=== PATIENT | male | born 1985 | race Caucasian/White ===

== ENCOUNTER 2017-09-19 17:13 | Emergency (ER) | END 2017-09-19 19:13 | disposition home or self-care (01) ==

== ENCOUNTER 2018-08-20 20:02 | Inpatient (IN) | payer MEDICAID ==
[~2018-08-20] VITALS: Ht 167.6 cm; Wt 72.0 kg
[2018-08-20] MEDS ORDERED: NALOXONE (0.4 MG/ML) INJ ONE (20:06)
[2018-08-20] MEDS ORDERED: CEFEPIME 2GM/50 ML (PMX) 50 ML IVPB STA (20:26)
[2018-08-20] MEDS ORDERED: SODIUM CHLORIDE 0.9% 1L BAG IV* STA (20:26)
[2018-08-20] MEDS ORDERED: VANCOMYCIN 1 GM (PMX) 250 ML IVPB ONE (20:30)
[2018-08-20] MEDS ORDERED: ETOMIDATE 20 MG INJ IV STA (20:45)
[2018-08-20] MEDS ORDERED: MIDAZOLAM (DRIP) 50 mg/50 mL 50 ML IV STA (20:45)
[2018-08-20] MEDS ORDERED: ROCURONIUM 50 MG INJ IV STA (20:45)
--- NOTE | 2018-08-20 20:58 | ERD ---
ER Documentation Chief Complaint Chief Complaint STEVEN [id number],suspected heroin overdose per EMS report HPI 33-year-old male who presents via EMS for altered mental status. EMS reports that the patient was found in a local parking lot unresponsive. He was hypoglycemic in the 30s and given dextrose. The patient was found to have pinp oint pupils and did not respond to 2 mg of Narcan. A nasal trumpet was inserted and the patient was brought to the emergency room. He continues to be unresponsive and remains critical. Remainder of HPI is very limited. EMR shows a prior visit for alcohol related issues. ROS Critical patient Medications Home Meds Unable to Obtain Active Prescriptions or Reported Meds Allergies Allergies: Coded Allergies: Unknown: Unable to obtain (Unverified , 09/19/17) PMhx/Soc Hx Alcohol Use: Yes (ETOH AT THIS TIME) Hx Substance Use: No (DENIES DRUG USE) Hx Tobacco Use: No FmHx Medical patient unable to obtain Physical Exam Vitals Vital Signs Date Temp Pulse Resp B/P (MAP) Pulse Ox O2 O2 Flow FiO2 Time Delivery Rate 08/20/18 120 23 83/60 (68) 86 Mechanical 23:41 Ventilator 08/20/18 118 25 98/51 (67) 92 Mechanical 23:27 Ventilator 08/20/18 106 25 95 100 23:12 08/20/18 115 12 86/53 (64) 95 Mechanical 22:56 Ventilator 08/20/18 106 19 118/61 96 Mechanical 22:05 (80) Ventilator 08/20/18 106 22 116/97 97 Mechanical 21:31 (103) Ventilator 08/20/18 112 23 92/80 (84) 97 Mechanical 21:14 Ventilator 08/20/18 112 25 96 100 20:55 08/20/18 105 25 154/75 100 Mechanical 20:43 (101) Ventilator 08/20/18 97.4 112 25 133/110 96 20:13 (118) Physical Exam General: Obtunded patient who is grunting with a nasal trumpet and not protecting his airway Head: Normocephalic, atraumatic. Eyes: Pinpoint pupils bilaterally ENT: Dry mucous membranes Neck: Supple, no lymphadenopathy Respiratory: Increased work of breathing Cardiovascular: Tachycardia, no murmurs, rubs, or gallops Abdominal: Soft, non-tender, non-distended, no peritoneal signs : No inguinal hernia normal descended testicles bilaterally MSK: Limited movement of all extremities with no deformities Neurologic: Obtunded, limited exam Skin: The patient has 2 areas of abrasions noted to the left hip with associated blister and right inner thigh with associated blister, no petechia or purpura Psych: Unable to assess Result Diagram: 08/20/18213608/20/182020 Results 24 hrs Laboratory Tests Test 08/20/18 20:19 08/20/18 20:20 08/20/18 20:21 08/20/18 20:45 POC Venous 7.0 mmol/L Lactate Urine Color YELLOW Urine Clarity SLIGHTLY CLOUD Y Urine pH 5.0 Urine Specific 1.018 [place] Urine Ketones NEGATIVE mg/dL Urine Nitrite NEGATIVE mg/dL Urine Bilirubin NEGATIVE mg/dL Urine NEGATIVE mg/dL Urobilinogen Urine Leukocyte NEGATIVE Hieu/u Esterase l Urine 0 /HPF Microscopic RBC Urine 1 /HPF Microscopic WBC Urine NEGATIVE mg/dL Hemoglobin Urine Glucose 3+ mg/dL Urine Total 1+ mg/dl Protein Urine Opiates Positive Screen Urine Negative Barbiturates Urine Positive Amphetamines Screen Urine Negative Benzodiazepines Screen Urine Cocaine Negative Screen Urine Positive Cannabinoids White Blood 20.2 10^3/ul Count Red Blood Count 4.65 10^6/ul Hemoglobin 15.1 g/dl Hematocrit 46.6 % Mean 100.2 fl Corpuscular Volume Mean 32.5 pg Corpuscular Hemoglobin Mean 32.4 g/dl Corpuscular Hemoglobin Conc ent Red Cell 13.2 % Distribution Width Platelet Count 229 10^3/UL Mean Platelet 10.2 fl Volume Immature 0.900 % Granulocytes % Neutrophils % % Segmented 61 % Neutrophils % (Manual) Band 25 % Neutrophils % (Manual) Lymphocytes % 5 % (Manual) Reactive 4 % Lymphocytes % (Manual) Monocytes % 3 % (Manual) Eosinophils % % Metamyelocytes 2 % % (manual) Nucleated Red 0.1 /100WBC Blood Cells % Immature 0.180 10^3/ul Granulocytes # Neutrophils # 10^3/ul Neutrophils # 13.3 10^3/ul (Manual) Band 5.0 10^3/ul Neutrophils # Lymphocytes 1.0 10^3/ul (Manual) Reactive 0.8 10^3/ul Lymphocytes # Monocytes # 0.6 10^3/ul (Manual) Eosinophils # 10^3/ul Metamyelocytes 0.4 10^3/ul # Platelet NORMAL Estimate Poikilocytosis 1+ Sodium Level 148 mmol/L Potassium Level 3.0 mmol/L Chloride Level 115 mmol/L Carbon Dioxide 13 mmol/L Level Anion Gap 20 Blood Urea 27 mg/dl Nitrogen Creatinine 2.91 mg/dl Est Glomerular 25 mL/min Filtrat Rate mL/min Glucose Level 157 mg/dl Calcium Level 7.3 mg/dl Magnesium Level 2.6 mg/dl Total Bilirubin 0.2 mg/dl Direct 0.00 mg/dl Bilirubin Indirect 0.2 mg/dl Bilirubin Aspartate Amino 6223 IU/L Transf (AST/SGO T) Alanine 5039 IU/L Aminotransferas e (ALT/SGPT) Alkaline 101 IU/L Phosphatase Creatine Kinase 9300 IU/L Troponin I 2.370 ng/ml Total Protein 6.1 g/dl Albumin 3.3 g/dl Globulin 2.80 g/dl Albumin/Globuli 1.17 n Ratio Salicylates < 1.0 mg/dl Level Acetaminophen < 10.0 ug/ml Level Ethyl Alcohol 95.0 mg/dl Level Hepatitis B Pending Surface Antigen Hepatitis B Pending Core Total Antibody Hepatitis C Pending Antibody Blood Gas Blood arterial Specimen Source Arterial Blood 08/20/2018 9:4 Date Drawn 5:15 PM Arterial Blood 7.021 pH (Temp corrected ) Arterial Blood 47.1 mmhg pCO2 (Temp correct) Arterial Blood 85.6 mmHG pO2 (Temp corrected ) Arterial Blood 11.9 mmol/L HCO3 Arterial Blood -18.9 mmol/L Base Excess Arterial Blood 91.2 mmHG Oxygen Saturati on John Test ACCEPTAB Arterial Blood Right Radial Gas Puncture Site Arterial 0.1 % Blood Carboxyhe moglobin Arterial Blood 0.3 % Methemoglobin Blood Gas A-a 580.3 mmHg O2 Differential Oxyhemoglobin 90.8 % Percent Blood Gas 37.0 C Temperature Blood Gas 15.0 Respiration Rate Blood Gas 20 Actual Respiration Rat e Blood Gas VENT - AC Modality FiO2 100.0 % Blood Gas Tidal 500.0 mL Volume Blood Gas Low 5.0 cmH2O PEEP Setting Blood Gas Erica YUNG MD Critical Value Read Back Blood Gas Notified Whom Blood Gas 08/20/2018 9:5 Notified Time 1:24 PM Test 08/20/18 21:37 08/20/18 22:17 08/20/18 23:00 Platelet Count 184 10^3/UL Prothrombin 29.6 Sec Time Prothrombin 2.3 Time Ratio INR 2.72 International Normalized Rati o Activated 39.9 Sec Partial Thrombo plast Time Thrombin Time 18.8 SEC Fibrinogen 208.0 mg/dl Plasma Fibrin >10 and Degradation Pro <40 ug/ml ducts D-Dimer 8363.85 ng/ml D-Dimer Comment POC Venous 4.6 mmol/L Lactate Blood Gas Blood arterial Specimen Source Arterial Blood 08/20/2018 11: Date Drawn 25:25 PM Arterial Blood 7.031 pH (Temp corrected ) Arterial Blood 50.0 mmhg pCO2 (Temp correct) Arterial Blood 82.1 mmHG pO2 (Temp corrected ) Arterial Blood 12.9 mmol/L HCO3 Arterial Blood -17.9 mmol/L Base Excess Arterial Blood 90.6 mmHG Oxygen Saturati on John Test ACCEPTAB Arterial Blood Left Radial Gas Puncture Site Arterial 0.3 % Blood Carboxyhe moglobin Arterial Blood 0.3 % Methemoglobin Blood Gas A-a 580.9 mmHg O2 Differential Oxyhemoglobin 90.1 % Percent Blood Gas 37.0 C Temperature Blood Gas 15.0 Respiration Rate Blood Gas 30 Actual Respiration Rat e Blood Gas VENT - AC Modality FiO2 100.0 % Blood Gas Tidal 500.0 mL Volume Blood Gas Low 5.0 cmH2O PEEP Setting Blood Gas Erica YUNG MD Critical Value Read Back Blood Gas Notified Whom Blood Gas 08/20/2018 11: Notified Time 34:02 PM Current Medications Medications Dose Sig/Paty Start Time Status Last (Trade) Ordered Route PRN Stop Time Admin Dose Reason Admin Sodium 2,400 ml BOLUS OVER 2 08/20/18 DC 08/20/18 Chloride HOURS STAT 20:26 20:43 (NS) IV* 08/20/18 20:28 Cefepime HCl 50 ml @ ONCE STAT 08/20/18 DC 08/20/18 100 mls/hr IVPB 20:26 20:43 08/20/18 20:55 Vancomycin 250 ml @ ONCE ONCE 08/20/18 DC 08/20/18 HCl 125 mls/hr IVPB 20:30 21:24 08/20/18 22:29 Rocuronium 100 mg ONCE STAT 08/20/18 DC 08/20/18 Nancy IV 20:45 20:58 (Zemuron) 08/20/18 20:47 Etomidate 20 mg ONCE STAT 08/20/18 DC (Amidate) IV 20:45 08/20/18 20:47 Midazolam 50 ml @ 3 ONCE STAT 18 08/20/18 HCl mls/hr IV 20:45 23:27 08/21/18 13:24 Fentanyl 100 ml @ TITRATE 08/20/18 2.5 mls/hr ONCE IV 21:00 08/22/18 12:59 Fentanyl 100 mcg ONCE ONCE 08/20/18 DC (Sublimaze) IV 21:00 08/20/18 21:01 Midazolam 2 mg ONCE ONCE 08/20/18 DC 08/20/18 HCl IV 21:00 21:24 (Versed) 08/20/18 21:01 Sodium 1,000 ml @ Q10H IV 08/20/18 DC 08/20/18 Chloride 100 mls/hr 21:44 22:39 08/20/18 23:44 Albuterol 4 puff Q2H RESP 08/20/18 (Ventolin THERAPY PRN 22:00 Hfa) INH SHORTNESS OF BREATH Ipratropium 4 puff Q2H RESP 08/20/18 Nancy THERAPY PRN 22:00 (Atrovent INH Hfa) SHORTNESS OF BREATH 650 mg Q6H PRN 08/20/18 Acetaminophen PO PAIN 22:00 (Tylenol LEVEL 1-3 OR Liquid) FEVER 40 mg 08/20/18 08/20/18 Pantoprazole BID@0600,1800 22:00 22:38 (Protonix IV Iv) Potassium 100 ml @ Q2H IVPB 08/20/18 08/20/18 Chloride 50 mls/hr 22:00 22:38 08/21/18 03:59 Sodium 1,000 ml @ Q1H ONCE 08/20/18 08/20/18 Chloride 1,000 mls/hr IV 23:00 23:26 08/20/18 23:59 500 ml @ TITRATE IV 08/21/18 Norepinephrin 1.88 mls/hr 00:00 e 16 mg/Dextrose Albumin 100 ml @ Q1H IV 08/21/18 Human 100 mls/hr 00:00 08/21/18 01:59 Procedures/MDM EKG, MONITORS, & DIAGNOSTIC IMAGING: EKG: I reviewed and interpreted a 12-lead EKG. Rhythm: Normal sinus rhythm ST Changes: No contiguous ST segment elevations T waves: No contiguous T wave inversions Impression: No evidence of acute cardiac ischemia Chest x-ray: Chest x-ray: I reviewed and interpreted a 1 view of the chest Mediastinum: No enlargement Cardiac silhouette: No cardiomegaly Airspace: Interstitial process bilaterally ET tube in good position Bones: No evidence of fracture Repeat chest x-ray Chest x-ray: I reviewed and interpreted a 1 view of the chest Mediastinum: No enlargement Cardiac silhouette: No cardiomegaly Airspace: Interstitial process bilaterally, ET tube in good position, triple- lumen catheter in good position without evidence of pneumothorax Bones: No evidence of fracture CT brain: IMPRESSION: Negative noncontrast CT brain RPTAT: HLRS PROCEDURES: Intubation Note: Indication: Airway protection Consent: This was an emergent situation, implied consent was observed RSI Medications: Etomidate 20 mg, Rocuronium 100 mg Tube size: 7.5 Secured at: 24 at mouth Procedure: Endotracheal intubation was performed. The patient was preoxygenated with supplemental oxygen, the room was set up with emergency airway equipment including [id number], suction, and adjunct airways. Direct visualization of the cords was performed with direct laryngoscopy using video laryngoscope, the patient had a difficult airway with multiple episodes of aspiration requiring suctioning. The patient was quite anterior with difficult visualization of the cords secondary to aspiration and frequent suctioning needs. First attempt was unable to insert the endotracheal tube, the patient was bagged using an oral airway and bag valve mask. Desaturation to 66% was noted with rapid recovery. Second attempt was successful with insertion of the endotracheal tube through the cords was visualized. Bilateral breath sounds were auscultated, color change was observed. The tube was then secured in a postintubation chest x-ray was ordered. Central Line Note: Consent: Critical patient, unable to obtain informed consent Indication: Critically ill patient requiring specialized vascular access for fluid or pressor management Location: Right IJ Indication: Critically ill patient Procedure: Sterile procedure was observed throughout insertion of the central line. The insertion site was prepped with sterile solution. Ultrasound-guided identification of the vein was performed. Insertion of a needle into the vein was obtained with return of dark, nonpulsatile blood. The wire was then threaded through the needle without complication. The wire was then identified within the vein using ultrasound. A small skin incision was made, the needle was removed intact, dilation of the vein was performed and insertion of a triple lumen catheter was completed. The catheter was then sutured to the skin. All 3 ports dottie back and flushed without difficulty. A sterile dressing was applied. The patient tolerated the procedure well there were no complications. Emergency Bedside Ultrasound: Indication: Central line Probe Type: Linear Findings: Dynamic ultrasound utilizing compressive technique with both linear and horizontal views, additional images showing wire within the venous system were obtained. The images were saved along with patient information on a paper chart to be scanned into EMR. The patient tolerated the procedure well and there were no complications. A post-line chest x-ray was ordered as indicated. LAB INTERPRETATION: * Lactic acid elevation possibly secondary to seizure versus hypermetabolic state * Leukocytosis of unclear significance consider stress response * Acute renal failure * Troponin elevation * Abnormal coagulation profile with borderline evidence of DIC MEDICAL DECISION MAKING: The patient arrives with altered mental status, hypoglycemia and pinpoint pupils. His presentation is possibly secondary to seizure secondary to h ypoglycemia secondary to alcohol abuse or polysubstance abuse. He does not have a fever. He has 2 blisters to the lower extremities that seem to be more friction related rather than systemic infection. He has no rash that is consistent with meningococcemia. I do not believe that the patient's pr esentation is consistent with meningitis. Consider possible intracranial hemorrhage, again seizure is also possible. Upon initial evaluation the patient continued to be obtunded despite use of smelling salts, sternal rub and other maneuvers. The patient was not protecting his airway and required emergent intubation. ER COURSE: * The patient was emergently intubated after failure of dextrose, smelling salts, Narcan 1 mg. The patient continued to be altered and not protecting his airway with intermittent hypoxia. * Intubation was somewhat difficult with multiple episodes of aspiration. Patie nt will be covered with broad-spectrum antibiotics. * Patient was sedated with fentanyl and Versed * 30 cc/kg bolus of saline was provided with broad-spectrum antibiotics after blood cultures. * The patient continues to be critically ill with multiple laboratory abnormalities including transaminitis, acute renal failure, troponin elevation, coagulopathy. These constellation of findings are likely co nsistent with multisystem organ dysfunction. * Toxicologic screen is additionally positive. Likely setting of sympathomimetic toxidrome leading to encephalopathy, poor perfusion and now multisystem organ dysfunction. Again I do not believe this is consistent with meningitis. No indication for lumbar puncture at this time. * A DIC panel was sent. A triple lumen catheter was inserted. The patient eventually required levo which was ordered by the admitting team. * The DIC panel is borderline. The fibrinogen is normal. The patient is likely trending towards DIC a type and screen was sent but conversation with admitting team was to hold on cryoprecipitate at this time. I believe it is reasonable. Her platelets are trending down but no indication for transfusion at this time. * Troponin elevation likely secondary to demand, no indication for aspirin at this time given concern for DIC * The patient remains critically ill with significant risk for morbidity and possible mortality. * Continue supportive measures DISPOSITION PLAN: Intensive care unit CONSULTATION: Accepting care team and consultations: I discussed the current laboratory data, diagnostic imaging and emergency care provided. Admitting team: Dr. Pinto Admitting team indication: Insurance directed Critical Care Note: Total time: 50 minutes Indication/Organ System Threat: Multisystem organ dysfunction I spent the above amount of critical care time with the patient, not including billable procedures. This included chart review, consultations, repeat bedside evaluations, and titration of appropriate medications to prevent cardiopulmonary or respiratory collapse. Departure Diagnosis: Primary Impression: Acute encephalopathy Additional Impressions: Polysubstance abuse MODS (multiple organ dysfunction syndrome) Coagulopathy Non-ST elevation myocardial infarction (NSTEMI) ARDS (adult respiratory distress syndrome) Shock Acute renal failure Acute renal failure type: unspecified Qualified Codes: N17.9 - Acute kidney failure, unspecified Lactic acidosis Acute respiratory failure Respiratory failure complication: unspecified whether with hypoxia or hypercapnia Qualified Codes: J96.00 - Acute respiratory failure, unspecified whether with hypoxia or hypercapnia Condition: Critical THIAGO YUNG MD Aug 20, 2018 20:58
[2018-08-20] MEDS ORDERED: MIDAZOLAM 1 MG/ML 2 ML INJ IV ONE (21:00)
[2018-08-20] MEDS ORDERED: FENTAnyl 50 MCG/ML VIAL IV ONE (21:00)
[2018-08-20] MEDS ORDERED: FENTAnyl (DRIP) 1000 mcg/100mL 100 ML IV ONE (21:00)
[2018-08-20] MEDS ORDERED: SOD CHLORIDE 0.9% 1,000 ML IV SCH (21:44)
--- NOTE | 2018-08-20 21:47 | HP ---
Date/Time of Note Date/Time of Note DATE: 08/20/18 TIME: 21:47 Assessment/Plan VTE Prophylaxis SCD applied (from Nsg): Yes Pharmacological prophylaxis: NA/contraindicated Pharm contraindication: liver dx Lines/Catheters IV Catheter Type (from Nrs): Central Line Central line insert date: Aug 20, 2018 Central line still needed: Yes (Critical care, antibiotics, pressors) Urinary Cath still in place: Yes Reason Cath still needed: other (indicate) (Critical condition) Assessment/Plan Hospital Course This is a 33-year-old male was being admitted to the ICU floor for: #1 acute ventilatory dependent respiratory failure: Secondary to polysubstance overdose, non-STEMI, septic shock, multiorgan dysfunction. At the current time will obtain serial ABGs and adjust ventilatory settings as indicated. Will consult pulmonology. Respiratory culture #2 Acute encephalopathy: Likely multifactorial toxic metabolic and infectious: Secondary to polysubstance overdose along with non-STEMI septic shock multi- multiorgan dysfunction. At the current time we will treat the above diagnosis. Continue to monitor neurological status. CT of the brain did not show any acute abnormalities. #3 non-STEMI: EKG did not show signs of any acute ischemia. Patient's urine drug screen was positive for opioids, amphetamine, marijuana, alcohol which likely could have contributed to this. At the current time we will trend cardiac enzymes x3. At the current time he is not a candidate for any anticoagulation given his elevated INR as well as signs of possible impending DIC. We will continue to monitor closely. We will obtain an echocardiogram, will consult cardiology #4 transaminitis: Suspect shock liver versus hepatitis. Given the patient's multiorgan dysfunction at the current time shock liver appears to be more likely. Patient also has an elevated INR. We will trend liver function test. He is currently receiving aggressive IV fluid hydration given that he also has rhabdomyolysis we will continue monitor closely. #5 septic shock: Chest x-ray shows signs of possible pneumonia. Patient presented with lactic acid level of 7 we will trend this. Broad-spectrum antibiotics of vancomycin and Zosyn. Cultures have ready been ordered in the emergency department will await the results of these. If patient does become hypotensive despite fluid resuscitation we will start the patient on pressor sup port. #6 acute renal failure: Suspect ATN secondary to shock, dehydration. At the current time will provide aggressive IV fluid hydration with normal saline, patient is nonoliguric at the current time. Monitor closely if urine output decreases or becomes oliguric. Will obtain a renal ultrasound. Urine studies. Will consult nephrology avoid nephrotoxic agents. #7 Rhabdomyolysis: Secondary to patient found down as well as polysubstance abuse. Aggressive IV fluid hydration with normal saline, monitor renal function closely monitor electrolytes closely. Repeat UA in the a.m. to assess for any heme sediment. #8 abnormal coagulation studies: Patient has supratherapeutic INR as well as abn ormal d-dimer and fibrin fragments, patient does not appear to be overtly bleeding at the current time. Concern for impending DIC. Will trend DIC labs. Continue to monitor closely. Transfuse blood products as indicated. #9 polysubstance abuse: Again patient was found to be positive for opioids, methamphetamine, marijuana and an elevated blood alcohol level. Thiamine 300 mg IM daily times 3 days, further treatment as per the clinical course #10 DVT and GI prophylaxis: SCDs, Protonix twice daily #11 CODE STATUS: Patient currently is a full code, there was no contact available at the current time. We will need to see if we can locate any next of kin. We did found a passport of the patient that was from [facility]. Will consult case management and social work to assist in locating any known relatives or friends. Greater than 55 minutes of critical care time was spent on the care and management this patient. HPI/ROS Admit Date/Time Admit Date/Time Hx of Present Illness Chief complaint: Altered mental status , found unresponsive in a parking lot Obtained from the ED physician documentation as well as the chart as the patient at the current time is intubated. This is a 33-year-old male who presents via EMS for altered mental status. EMS reports that the patient was found in a local parking lot unresponsive. He was hypoglycemic in the 30s and given dextrose. The patient was found to have pinpoint pupils and did not respond to 2 mg of Narcan. A nasal trumpet was inserted and the patient was brought to the emergency room. He continues to be unresponsive and remains critical. Patient was noted to be grunting and unresponsive in the emergency department and decision was made to emergently intubate the patient. Central line was also placed given his critical conditio n. Upon my examination at the bedside the patient is nonresponsive off sedation. He did have pinpoint pupils bilaterally. I did not observe any track anderson or any lesions around his body. I did not noticed any signs of head trauma. Allergies: Unable to obtain Medications: Unknown ROS Subjective hx not possible: pt critical (Unresponsive, intubated) PMH/Family/Social Past Medical History Unable to obtain, unresponsive, intubated Coded Allergies: No Known Allergies (Verified Allergy, Unknown, 08/24/18) Verified per pt. Oriented at this time. Past Surgical History Unable to obtain, unresponsive, intubated Family History Significant Family History: other (Unable to obtain, unresponsive, intubated) Social History Unable to obtain, unresponsive, intubated Alcohol Use: other (Previous admission for alcohol use.) Exam/Review of Systems Vital Signs Vitals Vital Signs Date Temp Pulse Resp B/P (MAP) Pulse Ox O2 O2 Flow FiO2 Time Delivery Rate 08/20/18 106 22 116/97 97 Mechanical 21:31 (103) Ventilator 08/20/18 97.4 20:13 Exam Exam General: Patient is currently intubated, he is obtunded and nonresponsive off sedation, pinpoint pupils bilaterally nonreactive to light HEENT: Atraumatic, normocephalic. The pupils are equal, round and reactive. Extraocular motor are intact Neck: Supple, ET tube in place Chest: Nontender Lungs: Clear to auscultation bilaterally no crackles rales or wheezing Heart: Sinus tachycardia Abdomen: Soft , nondistended , bowel sounds are present. No guarding no rebound tenderness , No masses or organomegaly. Extremities: Normal to inspection, no edema no cyanosis Neurologic: Patient came in unresponsive, he was emergently intubated, currently patient is obtunded while off sedation. Pinpoint pupils bilaterally nonreactive to light Additional Comments PROCEDURE: CT Brain without contrast. CLINICAL INDICATION: 33-year-old male. Possible sepsis. Altered level of consciousness. TECHNIQUE: A CT of the brain was performed on a multi-slice CT scanner utilizing axial imaging from the skull base through the vertex without IV contrast. Multiplanar reformatted images were made. Images were reviewed on a PACS workstation. One or more the following dose reduction techniques were utilized: Automated exposure control, adjustment of mA/ or kV according to patient's size, or use of iterative reconstruction technique. DICOM images are available for review. The CTDIvol is 39.64 mGy and the DLP is 634.23 mGycm. COMPARISON: CT brain 09/19/2017. FINDINGS: No mass effect or midline shift. Normal ventricles for age. No acute intra-axial or extra-axial hemorrhage. No subdural collection. Fregoso - white matter differentiation is maintained. Visualized paranasal sinuses are clear. Mastoid air cells are clear. IMPRESSION: Negative noncontrast CT brain RPTAT: [facility] Physician Denae Date Time Electronically viewed and signed by Physician Denae on 08/20/2018 21:40 RS/ CC: CHANDLER NOLASCO MD [id number] PROCEDURE: DX Chest 1 View CLINICAL INDICATION: Possible sepsis. TECHNIQUE: AP Portable chest. COMPARISON: None FINDINGS: Endotracheal tube is identified with the tip above the alisha but resting on the right lateral wall of the trachea. Large-bore nasogastric tube turns back on itself in the mid thoracic esophagus. The side-hole and tip are in the neck. Normal sized heart. Prominent superior mediastinum. Pulmonary vascular congestion with perihilar edema. No pneumothorax or significant pleural effusion. IMPRESSION: 1. Aberrant position of the nasogastric tube. Tube takes a 180 degrees turn in the mid thoracic esophagus. The tip and side hole projects over the right neck. 2. Endotracheal tube tip is above the alisha, abutting the lateral wall of the right trachea. Consider pulling to back approximately 2 - 2.5 cm. 3. Pulmonary vascular congestion with bilateral perihilar edema. RPTAT: [facility] Physician Denae Date Time Electronically viewed and signed by Physician Denae on 08/20/2018 21:43 RS/ CC: CHANDLER NOLASCO MD [id number] PROCEDURE: XR Chest. CLINICAL INDICATION: Central line placement TECHNIQUE: Single portable view of the chest was obtained COMPARISON: Same day FINDINGS: There is a new right-sided central line in place with its tip overlying the upper SVC. There is a nasogastric tube within the stomach. There is an endotracheal tube in place. There are worsening bilateral upper lobe and bilateral lower lobe patchy infiltrates. The heart, mediastinum, and lungs are otherwise unchanged. There is no pneumothorax. RPTAT:AA IMPRESSION: New right-sided central line in place with no evidence of pneumothorax. Nasogastric tube within the stomach. Worsening patchy bilateral upper lobe and lower lobe infiltrates. .Mark Gaytan MD, MD Date Time Electronically viewed and signed by .Mark Gaytan MD, on 08/21/2018 00:04 .S/ CC: THIAGO YUNG MD [id number] Medications Medications Current Medications Vancomycin HCl 250 ml @ 125 mls/hr ONCE ONCE IVPB Last administered on 08/20/18at 21:24; Admin Dose 125 MLS/HR; Start 08/20/18 at 20:30; Stop 08/20/18 at 22:29 Midazolam HCl 50 ml @ 3 mls/hr ONCE STAT IV ; Start 08/20/18 at 20:45; Stop 08/21/18 at 13:24 Fentanyl 100 ml @ 2.5 mls/hr TITRATE ONCE IV ; Start 08/20/18 at 21:00; Stop 08/22/18 at 12:59 Results Result Diagram: 08/20/18202008/20/182020 Results 24 hrs Laboratory Tests Test 08/20/18 20:19 08/20/18 20:20 08/20/18 20:21 POC Venous Lactate 7.0 *H Urine Color YELLOW Urine Clarity SLIGHTLY CLOUDY A Urine pH 5.0 Urine Specific [place] 1.018 Urine Ketones NEGATIVE Urine Nitrite NEGATIVE Urine Bilirubin NEGATIVE Urine Urobilinogen NEGATIVE Urine Leukocyte Esterase NEGATIVE Urine Microscopic RBC 0 Urine Microscopic WBC 1 Urine Hemoglobin NEGATIVE Urine Glucose 3+ H Urine Total Protein 1+ H Urine Opiates Screen Positive Urine Barbiturates Negative Urine Amphetamines Screen Positive Urine Benzodiazepines Screen Negative Urine Cocaine Screen Negative Urine Cannabinoids Positive White Blood Count 20.2 #H Red Blood Count 4.65 L Hemoglobin 15.1 Hematocrit 46.6 Mean Corpuscular Volume 100.2 Mean Corpuscular Hemoglobin 32.5 Mean Corpuscular 32.4 Hemoglobin Concent Red Cell Distribution Width 13.2 Platelet Count 229 # Mean Platelet Volume 10.2 Immature Granulocytes % 0.900 H Neutrophils % Eosinophils % Nucleated Red Blood Cells % 0.1 H Immature Granulocytes # 0.180 H Neutrophils # Eosinophils # Prothrombin Time Pending Prothrombin Time Ratio 2.4 INR International 2.85 Normalized Ratio Activated 41.7 H Partial Thromboplast Time Sodium Level 148 H Potassium Level 3.0 L Chloride Level 115 H Carbon Dioxide Level 13 L Anion Gap 20 H Blood Urea Nitrogen 27 H Creatinine 2.91 H Est Glomerular Filtrat 25 L Rate mL/min Glucose Level 157 Calcium Level 7.3 L Total Bilirubin 0.2 Direct Bilirubin 0.00 Indirect Bilirubin 0.2 Aspartate Amino 6223 H Transf (AST/SGOT) Alanine 5039 H Aminotransferase (ALT/SGPT) Alkaline Phosphatase 101 Creatine Kinase 9300 H Troponin I 2.370 *H Total Protein 6.1 Albumin 3.3 Globulin 2.80 Albumin/Globulin Ratio 1.17 Salicylates Level < 1.0 L Acetaminophen Level < 10.0 L Ethyl Alcohol Level 95.0 H QASIM BURROWS Aug 20, 2018 21:47
[2018-08-20] MEDS ORDERED: ALBUTEROL HFA 8 GM INHALER INH PRN (22:00)
[2018-08-20] MEDS ORDERED: IPRATROPIUM (HFA) 12.9 GM INHALER INH PRN (22:00)
[2018-08-20] MEDS: POTASSIUM CHLORIDE 100 ML IVPB SCH (22:38)
[2018-08-20] MEDS: PANTOPRAZOLE 40 MG INJ IV SCH (22:38)
[2018-08-20] MEDS ORDERED: SOD CHLORIDE 0.9% 1,000 ML IV ONE (23:00)
[2018-08-21] VITALS (103 sets, daily range): BP systolic 78–146; BP diastolic 47–100; PULSE 101–125; RESP 20–31; Ht 167.6 cm; Wt 72.0 kg
[2018-08-21] MEDS ORDERED: VANCOMYCIN IV PER PHARMACY XX SCH
[2018-08-21] MEDS: INSULIN ASPART [NOVOLOG] 3 ML PEN SC SCH ×6 (01:00→20:39)
[2018-08-21] MEDS: POTASSIUM CHLORIDE 100 ML IVPB SCH ×5 (02:00→07:00)
[2018-08-21] MEDS: SOD CHLORIDE 0.9% 1,000 ML IV SCH ×5 (02:00→21:30)
[2018-08-21] MEDS ORDERED: ACCU-CHEK XX SCH (02:00)
[2018-08-21] MEDS: ALBUMIN HUMAN 25% 100 ML IV SCH ×2 (02:52→03:30)
[2018-08-21] MEDS: THIAMINE 200 MG INJ IM SCH (04:00)
[2018-08-21] MEDS: PIPER-TAZO 3.375 GM IV (PMX) 100 ML IVPB SCH ×4 (04:00→22:49)
[2018-08-21] MEDS ORDERED: MIDAZOLAM (DRIP) 50 mg/50 mL 50 ML IV SCH (04:00)
[2018-08-21] MEDS: PANTOPRAZOLE 40 MG INJ IV SCH ×2 (06:16→18:09)
[2018-08-21] MEDS ORDERED: INSULIN REGULAR, HUMAN 100 UNIT/1 ML 3ML VIAL IVP STA (08:10)
[2018-08-21] MEDS ORDERED: DEXTROSE 50% 50 ML SYRINGE IV PRN ×3 (08:30→16:30)
[2018-08-21] MEDS ORDERED: NA POLYST SULFON 15 GM/60 ML BTL PO ONE (08:30)
[2018-08-21] MEDS ORDERED: NA BICARBONATE 8.4% 50 ML SYG IV STA (09:22)
[2018-08-21] MEDS ORDERED: NA BICARBONATE 8.4% 50 ML SYG ONE (09:23)
--- NOTE | 2018-08-21 09:54 | CONS ---
Date/Time of Note Date/Time of Note DATE: 08/21/18 TIME: 09:40 Assessment/Plan Assessment/Plan Problems: (1) Rhabdomyolysis Comment: and anuric with rising CPK.. will need dialysis... has been on fluids from the ER without response (2) Acute respiratory failure Status: Acute Comment: intubated in the ER Qualifiers: Qualified Codes: J96.00 - Acute respiratory failure, unspecified whether with hypoxia or hypercapnia (3) Lactic acidosis Status: Acute Comment: progressive.. on abx and pressors (4) Acute renal failure Status: Acute Comment: due to shock/rhabdo/polysubstance abuse, with current acidemia and hyperkalemia Qualifiers: Qualified Codes: N17.9 - Acute kidney failure, unspecified (5) Coagulopathy Status: Acute Comment: DIC noted (6) Shock Status: Acute Comment: on Levo (7) Polysubstance abuse Status: Acute Comment: noted on urine tox screen (8) Acute encephalopathy Status: Acute Comment: now sedated on the vent Consultation Date/Type/Reason Admit Date/Time Type of Consult Nephrology Reason for Consultation anuric ARF Hx of Present Illness History as per chart, as patient is sedated and intubated. Found down in a parking lot hypoglycemic , altered. sent EMS to ER, where was intubated and noted to have ARF, transaminitis, coagulopathy, (+) evidence for polysubstance abuse. Currently anuric, hyperkalemic with hypotension requiring Levo, in the setting of lactic acidemia and DIC. Additionally evidence for progressive Rhabdo, with CPK now > 88K. In view of all the above, imminent recovery of renal fxn will not occur, and he will need acute dialysis. This was discussed w Dr Armando, hospitalist helping to take care of this man. Subjective hx not possible: pt non-verbal, pt critical status Past Medical History unobtainable Social History Alcohol Use: other (Previous admission for alcohol use.) Exam/Review of Systems Vital Signs Vitals Vital Signs Date Temp Pulse Resp B/P (MAP) Pulse Ox O2 O2 Flow FiO2 Time Delivery Rate 08/21/18 104 30 111/71 100 08:45 (84) 08/21/18 98.5 Mechanical 08:00 Ventilator 08/21/18 100 04:41 Intake and Output 08/20/18 08/20/18 08/21/18 1515:00 23:00 07:00 IntakeIntake Total 1742.39 ml OutputOutput Total 510 ml BalanceBalance 1232.39 ml Exam Constitutional: non-verbal, other (sedated on the vent) Head: normocephalic, atraumatic Eyes: icteric (not) Neck: masses (none) Respiratory: clear to auscultation Cardiovascular: regular rate and rhythm Gastrointestinal: soft Musculoskeletal: nl extremities to inspection Extremities: normal pulses, edema (none) Medications Medications Current Medications Fentanyl 100 ml @ 2.5 mls/hr TITRATE ONCE IV ; Start 08/20/18 at 21:00; Stop 08/22/18 at 12:59 Albuterol (Ventolin Hfa) 4 puff Q2H RESP THERAPY PRN INH SHORTNESS OF BREATH; Start 08/20/18 at 22:00 Ipratropium [place] (Atrovent Hfa) 4 puff Q2H RESP THERAPY PRN INH SHORTNESS OF BREATH; Start 08/20/18 at 22:00 Acetaminophen (Tylenol Liquid) 650 mg Q6H PRN PO PAIN LEVEL 1-3 OR FEVER; Start 08/20/18 at 22:00 Pantoprazole (Protonix Iv) 40 mg BID@0600,1800 IV Last administered on 08/21/18at 06:16; Admin Dose 40 MG; Start 08/20/18 at 22:00 Norepinephrine 16 mg/Dextrose 500 ml @ 1.88 mls/hr TITRATE IV Last administered on 08/21/18at 00:26; Admin Dose 1.88 MLS/HR; Start 08/21/18 at 00:00 Sodium Chloride 1,000 ml @ 150 mls/hr Q6H40M IV Last administered on 08/21/18at 09:17; Admin Dose 300 MLS/HR; Start 08/21/18 at 02:00 Vancomycin HCl (Vanco Iv Per Pharmacy) VANCOMYCIN PER PHARMACY PER PROTOCOL XX ; Start 08/21/18 at 00:00 Piperacillin Sod/ Tazobactam Sod 100 ml @ 200 mls/hr Q8 IVPB Last administered on 08/21/18at 04:00; Admin Dose 200 MLS/HR; Start 08/21/18 at 00:00 Insulin Aspart (Novolog Insulin Pen) NOVOLOG *MILD* ALGORI... Q4 SC Last administered on 08/21/18at 05:25; Admin Dose 1 UNIT; Start 08/21/18 at 01:00 Vancomycin HCl 250 ml @ 125 mls/hr Q24H IVPB ; Start 08/21/18 at 20:00 Thiamine HCl (Vitamin B1) 300 mg DAILY@0300 IM Last administered on 08/21/18at 04:00; Admin Dose 300 MG; Start 08/21/18 at 03:00; Stop 08/24/18 at 02:59 Midazolam HCl 50 ml @ 3 mls/hr TITRATE IV Last administered on 08/21/18at 05:11; Admin Dose 4 MLS/HR; Start 08/21/18 at 04:00 Dextrose (D50w Syringe) ONCE PRN IV DECREASED GLUCOSE Last administered on 08/21/18at 09:09; Admin Dose 50 ML; Start 08/21/18 at 08:30; Stop 08/22/18 at 23:00 Influenza Virus Vaccine Quadrival (Fluzone) 0.5 ml ONCE ONCE IM* ; Start 08/24/18 at 10:00; Stop 08/24/18 at 10:01 Sodium Bicarbonate 100 meq/Dextrose 1,000 ml @ 100 mls/hr Q10H IV ; Start 08/21/18 at 10:00; Status UNV Results Result Diagram: 08/21/18 0410 08/21/18 0720 Results 24 hrs Laboratory Tests Test 08/20/18 20:19 08/20/18 20:20 08/20/18 20:21 08/20/18 20:45 POC Venous 7.0 *H Lactate Urine Color YELLOW Urine Clarity SLIGHTLY CLOUD Y A Urine pH 5.0 Urine Specific 1.018 [place] Urine Ketones NEGATIVE Urine Nitrite NEGATIVE Urine Bilirubin NEGATIVE Urine NEGATIVE Urobilinogen Urine Leukocyte NEGATIVE Esterase Urine 0 Microscopic RBC Urine 1 Microscopic WBC Urine NEGATIVE Hemoglobin Urine Glucose 3+ H Urine Total 1+ H Protein Urine Opiates Positive Screen Urine Negative Barbiturates Urine Positive Amphetamines Screen Urine Negative Benzodiazepines Screen Urine Cocaine Negative Screen Urine Positive Cannabinoids White Blood 20.2 #H Count Red Blood Count 4.65 L Hemoglobin 15.1 Hematocrit 46.6 Mean 100.2 Corpuscular Volume Mean 32.5 Corpuscular Hemoglobin Mean 32.4 Corpuscular Hemoglobin Conc ent Red Cell 13.2 Distribution Width Platelet Count 229 # Mean Platelet 10.2 Volume Immature 0.900 H Granulocytes % Neutrophils % Segmented 61 Neutrophils % (Manual) Band 25 H Neutrophils % (Manual) Lymphocytes % 5 L (Manual) Reactive 4 H Lymphocytes % (Manual) Monocytes % 3 (Manual) Eosinophils % Metamyelocytes 2 H % (manual) Nucleated Red 0.1 H Blood Cells % Immature 0.180 H Granulocytes # Neutrophils # Neutrophils # 13.3 H (Manual) Band 5.0 H Neutrophils # Lymphocytes 1.0 (Manual) Reactive 0.8 H Lymphocytes # Monocytes # 0.6 (Manual) Eosinophils # Metamyelocytes 0.4 H # Platelet NORMAL Estimate Poikilocytosis 1+ Sodium Level 148 H Potassium Level 3.0 L Chloride Level 115 H Carbon Dioxide 13 L Level Anion Gap 20 H Blood Urea 27 H Nitrogen Creatinine 2.91 H Est Glomerular 25 L Filtrat Rate mL/min Glucose Level 157 Calcium Level 7.3 L Magnesium Level 2.6 H Total Bilirubin 0.2 Direct 0.00 Bilirubin Indirect 0.2 Bilirubin Aspartate Amino 6223 H Transf (AST/SGO T) Alanine 5039 H Aminotransferas e (ALT/SGPT) Alkaline 101 Phosphatase Creatine Kinase 9300 H Troponin I 2.370 *H Total Protein 6.1 Albumin 3.3 Globulin 2.80 Albumin/Globuli 1.17 n Ratio Salicylates < 1.0 L Level Acetaminophen < 10.0 L Level Ethyl Alcohol 95.0 H Level Hepatitis B NEGATIVE Surface Antigen Hepatitis B NEGATIVE Core Total Antibody Hepatitis C NEGATIVE Antibody Blood Gas Blood Specimen arterial Source Arterial Blood 08/20/2018 9:4 Date Drawn 5:15 PM Arterial Blood 7.021 *L pH (Temp corrected ) Arterial Blood 47.1 H pCO2 (Temp correct) Arterial Blood 85.6 pO2 (Temp corrected ) Arterial Blood 11.9 L HCO3 Arterial Blood -18.9 L Base Excess Arterial Blood 91.2 L Oxygen Saturati on John Test ACCEPTAB Arterial Blood Right Radial Gas Puncture Site Arterial 0.1 Blood Carboxyhe moglobin Arterial Blood 0.3 Methemoglobin Blood Gas A-a 580.3 H O2 Differential Oxyhemoglobin 90.8 L Percent Blood Gas 37.0 Temperature Blood Gas 15.0 Respiration Rate Blood Gas 20 Actual Respiration Rat e Blood Gas VENT - AC Modality FiO2 100.0 Blood Gas Tidal 500.0 Volume Blood Gas Low 5.0 PEEP Setting Blood Gas Erica YUNG MD Critical Value Read Back Blood Gas Notified Whom Blood Gas 08/20/2018 9:5 Notified Time 1:24 PM Test 08/20/18 21:37 08/20/18 22:17 08/20/18 23:00 08/21/18 00:22 Platelet Count 184 Prothrombin 29.6 H Time Prothrombin 2.3 Time Ratio INR 2.72 International Normalized Rati o Activated 39.9 H Partial Thrombo plast Time Thrombin Time 18.8 Fibrinogen 208.0 Plasma Fibrin >10 and <40 H Degradation Pro ducts D-Dimer 8363.85 H D-Dimer Comment POC Venous 4.6 *H Lactate Blood Gas Blood Specimen arterial Source Arterial Blood 08/20/2018 11: Date Drawn 25:25 PM Arterial Blood 7.031 *L pH (Temp corrected ) Arterial Blood 50.0 H pCO2 (Temp correct) Arterial Blood 82.1 pO2 (Temp corrected ) Arterial Blood 12.9 L HCO3 Arterial Blood -17.9 L Base Excess Arterial Blood 90.6 L Oxygen Saturati on John Test ACCEPTAB Arterial Blood Left Radial Gas Puncture Site Arterial 0.3 Blood Carboxyhe moglobin Arterial Blood 0.3 Methemoglobin Blood Gas A-a 580.9 H O2 Differential Oxyhemoglobin 90.1 L Percent Blood Gas 37.0 Temperature Blood Gas 15.0 Respiration Rate Blood Gas 30 Actual Respiration Rat e Blood Gas VENT - AC Modality FiO2 100.0 Blood Gas Tidal 500.0 Volume Blood Gas Low 5.0 PEEP Setting Blood Gas Erica YUNG MD Critical Value Read Back Blood Gas Notified Whom Blood Gas 08/20/2018 11: Notified Time 34:02 PM Lactic Acid 4.5 *H Level Creatine Kinase 92194 #H Creatine Kinase 0.7 Index Creatinine 480.00 H Kinase MB (Mass) Troponin I 2.330 *H Test 08/21/18 01:37 08/21/18 02:04 08/21/18 04:10 08/21/18 05:08 Blood Gas Blood arterial Specimen Source Arterial Blood 08/21/2018 2:30 Date Drawn :48 AM Arterial Blood 7.152 *L pH (Temp corrected ) Arterial Blood 40.2 pCO2 (Temp correct) Arterial Blood 141.3 H pO2 (Temp corrected ) Arterial Blood 13.8 L HCO3 Arterial Blood -14.5 L Base Excess Arterial Blood 97.9 Oxygen Saturati on John Test ACCEPTAB Arterial Blood Right Radial Gas Puncture Site Arterial 0.3 Blood Carboxyhe moglobin Arterial Blood 0.3 Methemoglobin Blood Gas A-a 531.5 H O2 Differential Oxyhemoglobin 97.3 Percent Blood Gas 37.0 Temperature Blood Gas 30.0 Respiration Rate Blood Gas 30 Actual Respiration Rat e Blood Gas VENT - AC Modality FiO2 100.0 Blood Gas Tidal 500.0 Volume Blood Gas Low 5.0 PEEP Setting Blood Gas Jass BURROWS MD Critical Value Read Back Blood Gas [place] Notified Whom Blood Gas 08/21/2018 2:43 Notified Time :33 AM Lactic Acid 2.7 *H 2.4 *H Level White Blood 21.2 H Count Red Blood Count 4.41 L Hemoglobin 14.3 Hematocrit 43.4 Mean 98.4 Corpuscular Volume Mean 32.4 Corpuscular Hemoglobin Mean 32.9 Corpuscular Hemoglobin Conc ent Red Cell 12.9 Distribution Width Platelet Count 113 #L Mean Platelet 11.0 H Volume Immature 0.300 Granulocytes % Neutrophils % Segmented 81 H Neutrophils % (Manual) Band 11 H Neutrophils % (Manual) Lymphocytes % Lymphocytes % 6 L (Manual) Monocytes % Monocytes % 2 (Manual) Eosinophils % Basophils % Nucleated Red 0.0 Blood Cells % Immature 0.060 H Granulocytes # Neutrophils # Neutrophils # 17.7 H (Manual) Band 2.3 H Neutrophils # Lymphocytes 1.2 (Manual) Lymphocytes # Monocytes # Monocytes # 0.4 (Manual) Eosinophils # Basophils # Nucleated Red Blood Cells # Platelet DECREASED Estimate Giant Platelets 1 H Anisocytosis 1+ Microcytosis 1+ Prothrombin 28.9 H Time Prothrombin 2.3 Time Ratio INR 2.64 International Normalized Rati o Activated 37.4 H Partial Thrombo plast Time Thrombin Time 18.1 Fibrinogen 213.0 Plasma Fibrin >40 and <80 Degradation Pro H ducts D-Dimer > 07947.00 H Sodium Level 149 H Potassium Level 5.5 #H Chloride Level 120 H Carbon Dioxide 15 L Level Anion Gap 14 H Blood Urea 42 #H Nitrogen Creatinine 2.97 H Est Glomerular 25 L Filtrat Rate mL/min Glucose Level 182 Calcium Level 6.8 L Total Bilirubin 0.5 Direct 0.00 Bilirubin Indirect 0.5 Bilirubin Aspartate Amino Transf (AST/SGO T) Alanine Pending Aminotransferas e (ALT/SGPT) Alkaline 85 Phosphatase Creatine Kinase 41585 #H Creatine Kinase 0.9 Index Creatinine 782.00 H Kinase MB (Mass) Troponin I 2.680 *H Total Protein 5.9 L Albumin 3.3 Globulin 2.60 Albumin/Globuli 1.26 n Ratio Bedside Glucose 172 Test 08/21/18 07:00 08/21/18 07:20 08/21/18 09:05 Blood Gas Blood arterial Specimen Source Arterial Blood 08/21/2018 8:39 Date Drawn :15 AM Arterial Blood 7.124 *L pH (Temp corrected ) Arterial Blood 31.8 L pCO2 (Temp correct) Arterial Blood 425.4 H pO2 (Temp corrected ) Arterial Blood 10.2 L HCO3 Arterial Blood -17.9 L Base Excess Arterial Blood 99.1 H Oxygen Saturati on John Test ACCEPTAB Arterial Blood Right Radial Gas Puncture Site Arterial 0.3 Blood Carboxyhe moglobin Arterial Blood 1.0 Methemoglobin Blood Gas A-a 255.8 H O2 Differential Oxyhemoglobin 97.8 Percent Blood Gas 37.0 Temperature Blood Gas 30.0 Respiration Rate Blood Gas 30 Actual Respiration Rat e Blood Gas VENT - AC Modality FiO2 100.0 Blood Gas Tidal 500.0 Volume Blood Gas Low 5.0 PEEP Setting Blood Gas Juan Luis DUPONT RN Critical Value Read Back Blood Gas [place] Notified Whom Blood Gas 08/21/2018 8:55 Notified Time :51 AM Potassium Level 6.6 *H Bedside Glucose 195 SHAMAR PARKS MD Aug 21, 2018 09:52
--- NOTE | 2018-08-21 10:04 | CONS ---
Date/Time of Note Date/Time of Note DATE: 08/21/18 TIME: 10:03 Assessment/Plan Assessment/Plan Chief Complaint/Hosp Course History as per chart, as patient is sedated and intubated. Found down in a parking lot hypoglycemic , altered. sent EMS to ER, where was intubated and noted to have ARF, transaminitis, coagulopathy, (+) evidence for polysubstance abuse. Currently anuric, hyperkalemic with hypotension requiring Levo, in the setting of lactic acidemia and DIC. Additionally evidence for progressive Rhabdo, with CPK now > 88K. In view of all the above, imminent recovery of renal fxn will not occur, and he will need acute dialysis. This was discussed w Dr Armando, hospitalist helping to take care of this man. Consultation Date/Type/Reason Admit Date/Time Aug 20, 2018 at 21:39 Initial Consult Date Type of Consult Nephrology 24 HR Interval Summary Free Text/Dictation of note, pt needs emergent acute dialysis.. there is no family around to discuss, and the pt is sedated and intubated.. it is medically necessary Exam/Review of Systems Vital Signs Vitals Vital Signs Date Temp Pulse Resp B/P (MAP) Pulse Ox O2 O2 Flow FiO2 Time Delivery Rate 08/21/18 40 09:20 08/21/18 104 30 111/71 100 08:45 (84) 08/21/18 98.5 Mechanical 08:00 Ventilator Intake and Output 08/20/18 08/20/18 08/21/18 1515:00 23:00 07:00 IntakeIntake Total 1742.39 ml OutputOutput Total 510 ml BalanceBalance 1232.39 ml Medications Medications Current Medications Fentanyl 100 ml @ 2.5 mls/hr TITRATE ONCE IV ; Start 08/20/18 at 21:00; Stop 08/22/18 at 12:59 Albuterol (Ventolin Hfa) 4 puff Q2H RESP THERAPY PRN INH SHORTNESS OF BREATH; Start 08/20/18 at 22:00 Ipratropium Imboden (Atrovent Hfa) 4 puff Q2H RESP THERAPY PRN INH SHORTNESS OF BREATH; Start 08/20/18 at 22:00 Acetaminophen (Tylenol Liquid) 650 mg Q6H PRN PO PAIN LEVEL 1-3 OR FEVER; Start 08/20/18 at 22:00 Pantoprazole (Protonix Iv) 40 mg BID@0600,1800 IV Last administered on 08/21/18at 06:16; Admin Dose 40 MG; Start 08/20/18 at 22:00 Norepinephrine 16 mg/Dextrose 500 ml @ 1.88 mls/hr TITRATE IV Last administered on 08/21/18at 00:26; Admin Dose 1.88 MLS/HR; Start 08/21/18 at 00:00 Sodium Chloride 1,000 ml @ 150 mls/hr Q6H40M IV Last administered on at 09:17; Admin Dose 300 MLS/HR; Start 08/21/18 at 02:00 Vancomycin HCl (Vanco Iv Per Pharmacy) VANCOMYCIN PER PHARMACY PER PROTOCOL XX ; Start 08/21/18 at 00:00 Piperacillin Sod/ Tazobactam Sod 100 ml @ 200 mls/hr Q8 IVPB Last administered on 08/21/18at 04:00; Admin Dose 200 MLS/HR; Start 08/21/18 at 00:00 Insulin Aspart (Novolog Insulin Pen) NOVOLOG *MILD* ALGORI... Q4 SC Last admini stered on 08/21/18at 05:25; Admin Dose 1 UNIT; Start 08/21/18 at 01:00 Vancomycin HCl 250 ml @ 125 mls/hr Q24H IVPB ; Start 08/21/18 at 20:00 Thiamine HCl (Vitamin B1) 300 mg DAILY@0300 IM Last administered on 08/21/18at 04:00; Admin Dose 300 MG; Start 08/21/18 at 03:00; Stop 08/24/18 at 02:59 Midazolam HCl 50 ml @ 3 mls/hr TITRATE IV Last administered on 08/21/18at 05:11; Admin Dose 4 MLS/HR; Start 08/21/18 at 04:00 Dextrose (D50w Syringe) ONCE PRN IV DECREASED GLUCOSE Last administered on 08/21/18at 09:09; Admin Dose 50 ML; Start 08/21/18 at 08:30; Stop 08/22/18 at 23:00 Influenza Virus Vaccine Quadrival (Fluzone) 0.5 ml ONCE ONCE IM* ; Start 08/24/18 at 10:00; Stop 08/24/18 at 10:01 Sodium Bicarbonate 100 meq/Dextrose 1,000 ml @ 100 mls/hr Q10H IV ; Start 08/21/18 at 10:00 Results Result Diagram: 08/21/18 0410 08/21/18 0720 Results 24 hrs Laboratory Tests Test 08/20/18 20:19 08/20/18 20:20 08/20/18 20:21 08/20/18 20:45 POC Venous 7.0 *H Lactate Urine Color YELLOW Urine Clarity SLIGHTLY CLOUD Y A Urine pH 5.0 Urine Specific 1.018 Lancing Urine Ketones NEGATIVE Urine Nitrite NEGATIVE Urine Bilirubin NEGATIVE Urine NEGATIVE Urobilinogen Urine Leukocyte NEGATIVE Esterase Urine 0 Microscopic RBC Urine 1 Microscopic WBC Urine NEGATIVE Hemoglobin Urine Glucose 3+ H Urine Total 1+ H Protein Urine Opiates Positive Screen Urine Negative Barbiturates Urine Positive Amphetamines Screen Urine Negative Benzodiazepines Screen Urine Cocaine Negative Screen Urine Positive Cannabinoids White Blood 20.2 #H Count Red Blood Count 4.65 L Hemoglobin 15.1 Hematocrit 46.6 Mean 100.2 Corpuscular Volume Mean 32.5 Corpuscular Hemoglobin Mean 32.4 Corpuscular Hemoglobin Conc ent Red Cell 13.2 Distribution Width Platelet Count 229 # Mean Platelet 10.2 Volume Immature 0.900 H Granulocytes % Neutrophils % Segmented 61 Neutrophils % (Manual) Band 25 H Neutrophils % (Manual) Lymphocytes % 5 L (Manual) Reactive 4 H Lymphocytes % (Manual) Monocytes % 3 (Manual) Eosinophils % Metamyelocytes 2 H % (manual) Nucleated Red 0.1 H Blood Cells % Immature 0.180 H Granulocytes # Neutrophils # Neutrophils # 13.3 H (Manual) Band 5.0 H Neutrophils # Lymphocytes 1.0 (Manual) Reactive 0.8 H Lymphocytes # Monocytes # 0.6 (Manual) Eosinophils # Metamyelocytes 0.4 H # Platelet NORMAL Estimate Poikilocytosis 1+ Sodium Level 148 H Potassium Level 3.0 L Chloride Level 115 H Carbon Dioxide 13 L Level Anion Gap 20 H Blood Urea 27 H Nitrogen Creatinine 2.91 H Est Glomerular 25 L Filtrat Rate mL/min Glucose Level 157 Calcium Level 7.3 L Magnesium Level 2.6 H Total Bilirubin 0.2 Direct 0.00 Bilirubin Indirect 0.2 Bilirubin Aspartate Amino 6223 H Transf (AST/SGO T) Alanine 5039 H Aminotransferas e (ALT/SGPT) Alkaline 101 Phosphatase Creatine Kinase 9300 H Troponin I 2.370 *H Total Protein 6.1 Albumin 3.3 Globulin 2.80 Albumin/Globuli 1.17 n Ratio Salicylates < 1.0 L Level Acetaminophen < 10.0 L Level Ethyl Alcohol 95.0 H Level Hepatitis B NEGATIVE Surface Antigen Hepatitis B NEGATIVE Core Total Antibody Hepatitis C NEGATIVE Antibody Blood Gas Blood Specimen arterial Source Arterial Blood 08/20/2018 9:4 Date Drawn 5:15 PM Arterial Blood 7.021 *L pH (Temp corrected ) Arterial Blood 47.1 H pCO2 (Temp correct) Arterial Blood 85.6 pO2 (Temp corrected ) Arterial Blood 11.9 L HCO3 Arterial Blood -18.9 L Base Excess Arterial Blood 91.2 L Oxygen Saturati on John Test ACCEPTAB Arterial Blood Right Radial Gas Puncture Site Arterial 0.1 Blood Carboxyhe moglobin Arterial Blood 0.3 Methemoglobin Blood Gas A-a 580.3 H O2 Differential Oxyhemoglobin 90.8 L Percent Blood Gas 37.0 Temperature Blood Gas 15.0 Respiration Rate Blood Gas 20 Actual Respiration Rat e Blood Gas VENT - AC Modality FiO2 100.0 Blood Gas Tidal 500.0 Volume Blood Gas Low 5.0 PEEP Setting Blood Gas Erica YUNG MD Critical Value Read Back Blood Gas Notified Whom Blood Gas 08/20/2018 9:5 Notified Time 1:24 PM Test 08/20/18 21:37 08/20/18 22:17 08/20/18 23:00 08/21/18 00:22 Platelet Count 184 Prothrombin 29.6 H Time Prothrombin 2.3 Time Ratio INR 2.72 International Normalized Rati o Activated 39.9 H Partial Thrombo plast Time Thrombin Time 18.8 Fibrinogen 208.0 Plasma Fibrin >10 and <40 H Degradation Pro ducts D-Dimer 8363.85 H D-Dimer Comment POC Venous 4.6 *H Lactate Blood Gas Blood Specimen arterial Source Arterial Blood 08/20/2018 11: Date Drawn 25:25 PM Arterial Blood 7.031 *L pH (Temp corrected ) Arterial Blood 50.0 H pCO2 (Temp correct) Arterial Blood 82.1 pO2 (Temp corrected ) Arterial Blood 12.9 L HCO3 Arterial Blood -17.9 L Base Excess Arterial Blood 90.6 L Oxygen Saturati on John Test ACCEPTAB Arterial Blood Left Radial Gas Puncture Site Arterial 0.3 Blood Carboxyhe moglobin Arterial Blood 0.3 Methemoglobin Blood Gas A-a 580.9 H O2 Differential Oxyhemoglobin 90.1 L Percent Blood Gas 37.0 Temperature Blood Gas 15.0 Respiration Rate Blood Gas 30 Actual Respiration Rat e Blood Gas VENT - AC Modality FiO2 100.0 Blood Gas Tidal 500.0 Volume Blood Gas Low 5.0 PEEP Setting Blood Gas Erica YUNG MD Critical Value Read Back Blood Gas Notified Whom Blood Gas 08/20/2018 11: Notified Time 34:02 PM Lactic Acid 4.5 *H Level Creatine Kinase 42098 #H Creatine Kinase 0.7 Index Creatinine 480.00 H Kinase MB (Mass) Troponin I 2.330 *H Test 08/21/18 01:37 08/21/18 02:04 08/21/18 04:10 08/21/18 05:08 Blood Gas Blood arterial Specimen Source Arterial Blood 08/21/2018 2:30 Date Drawn :48 AM Arterial Blood 7.152 *L pH (Temp corrected ) Arterial Blood 40.2 pCO2 (Temp correct) Arterial Blood 141.3 H pO2 (Temp corrected ) Arterial Blood 13.8 L HCO3 Arterial Blood -14.5 L Base Excess Arterial Blood 97.9 Oxygen Saturati on John Test ACCEPTAB Arterial Blood Right Radial Gas Puncture Site Arterial 0.3 Blood Carboxyhe moglobin Arterial Blood 0.3 Methemoglobin Blood Gas A-a 531.5 H O2 Differential Oxyhemoglobin 97.3 Percent Blood Gas 37.0 Temperature Blood Gas 30.0 Respiration Rate Blood Gas 30 Actual Respiration Rat e Blood Gas VENT - AC Modality FiO2 100.0 Blood Gas Tidal 500.0 Volume Blood Gas Low 5.0 PEEP Setting Blood Gas Jass BURROWS MD Critical Value Read Back Blood Gas [place] Notified Whom Blood Gas 08/21/2018 2:43 Notified Time :33 AM Lactic Acid 2.7 *H 2.4 *H Level White Blood 21.2 H Count Red Blood Count 4.41 L Hemoglobin 14.3 Hematocrit 43.4 Mean 98.4 Corpuscular Volume Mean 32.4 Corpuscular Hemoglobin Mean 32.9 Corpuscular Hemoglobin Conc ent Red Cell 12.9 Distribution Width Platelet Count 113 #L Mean Platelet 11.0 H Volume Immature 0.300 Granulocytes % Neutrophils % Segmented 81 H Neutrophils % (Manual) Band 11 H Neutrophils % (Manual) Lymphocytes % Lymphocytes % 6 L (Manual) Monocytes % Monocytes % 2 (Manual) Eosinophils % Basophils % Nucleated Red 0.0 Blood Cells % Immature 0.060 H Granulocytes # Neutrophils # Neutrophils # 17.7 H (Manual) Band 2.3 H Neutrophils # Lymphocytes 1.2 (Manual) Lymphocytes # Monocytes # Monocytes # 0.4 (Manual) Eosinophils # Basophils # Nucleated Red Blood Cells # Platelet DECREASED Estimate Giant Platelets 1 H Anisocytosis 1+ Microcytosis 1+ Prothrombin 28.9 H Time Prothrombin 2.3 Time Ratio INR 2.64 International Normalized Rati o Activated 37.4 H Partial Thrombo plast Time Thrombin Time 18.1 Fibrinogen 213.0 Plasma Fibrin >40 and <80 Degradation Pro H ducts D-Dimer > 22648.00 H Sodium Level 149 H Potassium Level 5.5 #H Chloride Level 120 H Carbon Dioxide 15 L Level Anion Gap 14 H Blood Urea 42 #H Nitrogen Creatinine 2.97 H Est Glomerular 25 L Filtrat Rate mL/min Glucose Level 182 Calcium Level 6.8 L Total Bilirubin 0.5 Direct 0.00 Bilirubin Indirect 0.5 Bilirubin Aspartate Amino Transf (AST/SGO T) Alanine 6218 H Aminotransferas e (ALT/SGPT) Alkaline 85 Phosphatase Creatine Kinase 73967 #H Creatine Kinase 0.9 Index Creatinine 782.00 H Kinase MB (Mass) Troponin I 2.680 *H Total Protein 5.9 L Albumin 3.3 Globulin 2.60 Albumin/Globuli 1.26 n Ratio Bedside Glucose 172 Test 08/21/18 07:00 08/21/18 07:20 08/21/18 09:05 Blood Gas Blood arterial Specimen Source Arterial Blood 08/21/2018 8:39 Date Drawn :15 AM Arterial Blood 7.124 *L pH (Temp corrected ) Arterial Blood 31.8 L pCO2 (Temp correct) Arterial Blood 425.4 H pO2 (Temp corrected ) Arterial Blood 10.2 L HCO3 Arterial Blood -17.9 L Base Excess Arterial Blood 99.1 H Oxygen Saturati on John Test ACCEPTAB Arterial Blood Right Radial Gas Puncture Site Arterial 0.3 Blood Carboxyhe moglobin Arterial Blood 1.0 Methemoglobin Blood Gas A-a 255.8 H O2 Differential Oxyhemoglobin 97.8 Percent Blood Gas 37.0 Temperature Blood Gas 30.0 Respiration Rate Blood Gas 30 Actual Respiration Rat e Blood Gas VENT - AC Modality FiO2 100.0 Blood Gas Tidal 500.0 Volume Blood Gas Low 5.0 PEEP Setting Blood Gas Juan Luis DUPONT RN Critical Value Read Back Blood Gas M.D. Notified Whom Blood Gas 08/21/2018 8:55 Notified Time :51 AM Potassium Level 6.6 *H Bedside Glucose 195 SHAMAR PARKS MD Aug 21, 2018 10:04
--- NOTE | 2018-08-21 10:15 | RADRPT ---
Echocardiogram Report Patient Name: ANDERS MAGANA Gender: Male Date: 1985 Study Date: 21-Aug-2018 Pediatric Acute Care Unit Nurse: Pascual Ward RDCS Location: 115-A Ref. Physician: QASIM BURROWS Quality: Technically Difficult Study Procedures: Transthoracic echocardiogram with complete 2D, M-Mode, and doppler examination. Indications: NSTEMI. 2D/M Mode Doppler Measurement Value Normal Ranges Measurement Value Normal Ranges LVIDd 2D 4.1 3.5 - 5.6 cm AV Peak Hayes 1.1 m/sec LVIDs 2D 2.9 2.1 - 4.1 cm AV Peak PG 5.0 mmHg FS 2D 29.9 % LVOT Peak Hayes 0.8 m/sec LVPWd 2D 1.1 0.6 - 1.1 cm LVOT Peak PG 3.0 mmHg IVSd 2D 0.8 0.6 - 1.1 cm MV E Peak Hayes 0.7 m/sec IVS/LVPW 2D 0.8 MV A Peak Hayes 0.4 m/sec AoR Diam 2D 2.7 2.0 - 3.7 cm MV E/A 1.8 LA/Ao 2D 1 0 - 1 MV Decel Time 264 msec EDV 2D 69.9 cm3 MV E/A 1.8 ESV 2D 24.1 cm3 LA Dimen 2D 2.7 2.3 - 4.0 cm Findings Left Ventricle: Normal left ventricular systolic function. Normal left ventricular cavity size. Normal left ventricular wall thickness. Ejection fraction is visually estimated at 50 %. Right Ventricle: Normal right ventricular size. Normal right ventricular systolic function. Left Atrium: The left atrium is normal in size. Right Atrium: The right atrium is normal in size. Mitral Valve: Normal appearance of the mitral valve. No mitral valve regurgitation is seen. Aortic Valve: Normal appearance of the aortic valve. No aortic regurgitation. Tricuspid Valve: Tricuspid valve not well visualized. Pericardium: Normal pericardium with no significant pericardial effusion. Aorta: Normal aortic root. IVC: Dilated IVC with respiratory collapse consistent with elevated right atrial pressure. Conclusions Normal left ventricular systolic function. Normal left ventricular cavity size. Normal left ventricular wall thickness. Ejection fraction is visually estimated at 50 %. Normal aortic root. Normal right ventricular size. Normal right ventricular systolic function. Dilated IVC with respiratory collapse consistent with elevated right atrial pressure. Electronically Signed By: Bird Mullen 21-Aug-2018 10:14:45 -0800 Patient Name: ANDERS MAGANA Study Date: 21-Aug-[id number]
--- NOTE | 2018-08-21 10:30 | CONS ---
Date/Time of Note Date/Time of Note DATE: 08/21/18 TIME: 10:25 Assessment/Plan Assessment/Plan Additional Assessment/Plan Ventilator setting; AC of 30, tidal volume 500, PEEP of 5, 100% FiO2. ABG showing severe metabolic acidosis. Chest x-ray showing right upper lobe infiltrative changes. There is mild pulmonary edema present as well. Assessment recommendations; 1. Patient admitted with multiorgan failure due to severe sepsis with shock liver as well as acute renal failure with severe metabolic acidosis. 2. History of polysubstance abuse. 3. Likely right upper lobe aspiration pneumonia. 4. Non-ST elevation MO. 5. Anemia. Start sodium bicarbonate drip. Patient will need to be dialyzed. Obtain follow-up chest x-ray 24 hours. Continue current antibiotics as well. Wean down FiO2 to 40%. Obtain follow-up ABG in 4 hours. Prognosis is guarded. 40 minutes of critical care time was spent evaluating the patient. Consultation Date/Type/Reason Admit Date/Time Aug 20, 2018 at 21:39 Date of Consultation: Aug 21, 2018 Type of Consult Pulmonary/critical care History presenting illness; Patient is a 33-year-old male who was brought into the emergency room after he was found unresponsive at a sidewalk, patient however did not require any CPR performed and had spontaneous pulse and respirations. Patient be diagnosed with severe sepsis as well as acute renal failure and shock liver. By the time I saw the patient I saw, patient is orally intubated and sedated. Past medical history; 1. History of substance abuse. Medications; reviewed. Patient is currently on Versed 2 mg/h, Levophed 80 mics per minute. Patient also is on adequate fluid resuscitation. Other medications were reviewed in detail. Allergies; not available. Social history; drug abuse. Family history and occupational history not available. REVIEW of system; unable to be obtained. General exam; young male, orally intubated, sedated, currently in no distress. Reason for Consultation H HEENT exam; supple neck, no JVD. No lymphadenopathy. Midline trachea. No thyromegaly. Pupils are small bilaterally. No neck masses. Orally intubated. Chest exam; diminished breath sounds bilaterally. S1-S2 audible, no murmurs. Regular rhythm. Abdomen exam; soft, no organomegaly. Bowel sounds are absent. Extremity exam; no peripheral edema. CLINICAL PHARMACY COORDINATOR exam; patient is sedated. Social History Alcohol Use: other (Previous admission for alcohol use.) Exam/Review of Systems Vital Signs Vitals Vital Signs Date Temp Pulse Resp B/P (MAP) Pulse Ox O2 O2 Flow FiO2 Time Delivery Rate 08/21/18 40 09:20 08/21/18 104 30 111/71 100 08:45 (84) 08/21/18 98.5 Mechanical 08:00 Ventilator Intake and Output 08/20/18 08/20/18 08/21/18 1515:00 23:00 07:00 IntakeIntake Total 1742.39 ml OutputOutput Total 510 ml BalanceBalance 1232.39 ml Medications Medications Current Medications Fentanyl 100 ml @ 2.5 mls/hr TITRATE ONCE IV ; Start 08/20/18 at 21:00; Stop 08/22/18 at 12:59 Albuterol (Ventolin Hfa) 4 puff Q2H RESP THERAPY PRN INH SHORTNESS OF BREATH; Start 08/20/18 at 22:00 Ipratropium [place] (Atrovent Hfa) 4 puff Q2H RESP THERAPY PRN INH SHORTNESS OF BREATH; Start 08/20/18 at 22:00 Acetaminophen (Tylenol Liquid) 650 mg Q6H PRN PO PAIN LEVEL 1-3 OR FEVER; Start 08/20/18 at 22:00 Pantoprazole (Protonix Iv) 40 mg BID@0600,1800 IV Last administered on 08/21/18at 06:16; Admin Dose 40 MG; Start 08/20/18 at 22:00 Norepinephrine 16 mg/Dextrose 500 ml @ 1.88 mls/hr TITRATE IV Last administered on 08/21/18at 00:26; Admin Dose 1.88 MLS/HR; Start 08/21/18 at 00:00 Sodium Chloride 1,000 ml @ 150 mls/hr Q6H40M IV Last administered on 08/21/18at 09:17; Admin Dose 300 MLS/HR; Start 08/21/18 at 02:00 Vancomycin HCl (Vanco Iv Per Pharmacy) VANCOMYCIN PER PHARMACY PER PROTOCOL XX ; Start 08/21/18 at 00:00 Piperacillin Sod/ Tazobactam Sod 100 ml @ 200 mls/hr Q8 IVPB Last administered on 08/21/18at 04:00; Admin Dose 200 MLS/HR; Start 08/21/18 at 00:00 Insulin Aspart (Novolog Insulin Pen) NOVOLOG *MILD* ALGORI... Q4 SC Last administered on 08/21/18at 05:25; Admin Dose 1 UNIT; Start 08/21/18 at 01:00 Vancomycin HCl 250 ml @ 125 mls/hr Q24H IVPB ; Start 08/21/18 at 20:00 Thiamine HCl (Vitamin B1) 300 mg DAILY@0300 IM Last administered on 08/21/18at 04:00; Admin Dose 300 MG; Start 08/21/18 at 03:00; Stop 08/24/18 at 02:59 Midazolam HCl 50 ml @ 3 mls/hr TITRATE IV Last administered on 08/21/18at 05:1 1; Admin Dose 4 MLS/HR; Start 08/21/18 at 04:00 Dextrose (D50w Syringe) ONCE PRN IV DECREASED GLUCOSE Last administered on 08/21/18at 09:09; Admin Dose 50 ML; Start 08/21/18 at 08:30; Stop 08/22/18 at 23:00 Influenza Virus Vaccine Quadrival (Fluzone) 0.5 ml ONCE ONCE IM* ; Start 08/24/18 at 10:00; Stop 08/24/18 at 10:01 Sodium Bicarbonate 100 meq/Dextrose 1,000 ml @ 100 mls/hr Q10H IV ; Start 08/21/18 at 10:00 Results Result Diagram: 08/21/18 0410 08/21/18 0720 Results 24 hrs Laboratory Tests Test 08/20/18 20:19 08/20/18 20:20 08/20/18 20:21 08/20/18 20:45 POC Venous 7.0 *H Lactate Urine Color YELLOW Urine Clarity SLIGHTLY CLOUD Y A Urine pH 5.0 Urine Specific 1.018 [place] Urine Ketones NEGATIVE Urine Nitrite NEGATIVE Urine Bilirubin NEGATIVE Urine NEGATIVE Urobilinogen Urine Leukocyte NEGATIVE Esterase Urine 0 Microscopic RBC Urine 1 Microscopic WBC Urine NEGATIVE Hemoglobin Urine Glucose 3+ H Urine Total 1+ H Protein Urine Opiates Positive Screen Urine Negative Barbiturates Urine Positive Amphetamines Screen Urine Negative Benzodiazepines Screen Urine Cocaine Negative Screen Urine Positive Cannabinoids White Blood 20.2 #H Count Red Blood Count 4.65 L Hemoglobin 15.1 Hematocrit 46.6 Mean 100.2 Corpuscular Volume Mean 32.5 Corpuscular Hemoglobin Mean 32.4 Corpuscular Hemoglobin Conc ent Red Cell 13.2 Distribution Width Platelet Count 229 # Mean Platelet 10.2 Volume Immature 0.900 H Granulocytes % Neutrophils % Segmented 61 Neutrophils % (Manual) Band 25 H Neutrophils % (Manual) Lymphocytes % 5 L (Manual) Reactive 4 H Lymphocytes % (Manual) Monocytes % 3 (Manual) Eosinophils % Metamyelocytes 2 H % (manual) Nucleated Red 0.1 H Blood Cells % Immature 0.180 H Granulocytes # Neutrophils # Neutrophils # 13.3 H (Manual) Band 5.0 H Neutrophils # Lymphocytes 1.0 (Manual) Reactive 0.8 H Lymphocytes # Monocytes # 0.6 (Manual) Eosinophils # Metamyelocytes 0.4 H # Platelet NORMAL Estimate Poikilocytosis 1+ Sodium Level 148 H Potassium Level 3.0 L Chloride Level 115 H Carbon Dioxide 13 L Level Anion Gap 20 H Blood Urea 27 H Nitrogen Creatinine 2.91 H Est Glomerular 25 L Filtrat Rate mL/min Glucose Level 157 Calcium Level 7.3 L Magnesium Level 2.6 H Total Bilirubin 0.2 Direct 0.00 Bilirubin Indirect 0.2 Bilirubin Aspartate Amino 6223 H Transf (AST/SGO T) Alanine 5039 H Aminotransferas e (ALT/SGPT) Alkaline 101 Phosphatase Creatine Kinase 9300 H Troponin I 2.370 *H Total Protein 6.1 Albumin 3.3 Globulin 2.80 Albumin/Globuli 1.17 n Ratio Salicylates < 1.0 L Level Acetaminophen < 10.0 L Level Ethyl Alcohol 95.0 H Level Hepatitis B NEGATIVE Surface Antigen Hepatitis B NEGATIVE Core Total Antibody Hepatitis C NEGATIVE Antibody Blood Gas Blood Specimen arterial Source Arterial Blood 08/20/2018 9:4 Date Drawn 5:15 PM Arterial Blood 7.021 *L pH (Temp corrected ) Arterial Blood 47.1 H pCO2 (Temp correct) Arterial Blood 85.6 pO2 (Temp corrected ) Arterial Blood 11.9 L HCO3 Arterial Blood -18.9 L Base Excess Arterial Blood 91.2 L Oxygen Saturati on John Test ACCEPTAB Arterial Blood Right Radial Gas Puncture Site Arterial 0.1 Blood Carboxyhe moglobin Arterial Blood 0.3 Methemoglobin Blood Gas A-a 580.3 H O2 Differential Oxyhemoglobin 90.8 L Percent Blood Gas 37.0 Temperature Blood Gas 15.0 Respiration Rate Blood Gas 20 Actual Respiration Rat e Blood Gas VENT - AC Modality FiO2 100.0 Blood Gas Tidal 500.0 Volume Blood Gas Low 5.0 PEEP Setting Blood Gas Erica YUNG MD Critical Value Read Back Blood Gas Notified Whom Blood Gas 08/20/2018 9:5 Notified Time 1:24 PM Test 08/20/18 21:37 08/20/18 22:17 08/20/18 23:00 08/21/18 00:22 Platelet Count 184 Prothrombin 29.6 H Time Prothrombin 2.3 Time Ratio INR 2.72 International Normalized Rati o Activated 39.9 H Partial Thrombo plast Time Thrombin Time 18.8 Fibrinogen 208.0 Plasma Fibrin >10 and <40 H Degradation Pro ducts D-Dimer 8363.85 H D-Dimer Comment POC Venous 4.6 *H Lactate Blood Gas Blood Specimen arterial Source Arterial Blood 08/20/2018 11: Date Drawn 25:25 PM Arterial Blood 7.031 *L pH (Temp corrected ) Arterial Blood 50.0 H pCO2 (Temp correct) Arterial Blood 82.1 pO2 (Temp corrected ) Arterial Blood 12.9 L HCO3 Arterial Blood -17.9 L Base Excess Arterial Blood 90.6 L Oxygen Saturati on John Test ACCEPTAB Arterial Blood Left Radial Gas Puncture Site Arterial 0.3 Blood Carboxyhe moglobin Arterial Blood 0.3 Methemoglobin Blood Gas A-a 580.9 H O2 Differential Oxyhemoglobin 90.1 L Percent Blood Gas 37.0 Temperature Blood Gas 15.0 Respiration Rate Blood Gas 30 Actual Respiration Rat e Blood Gas VENT - AC Modality FiO2 100.0 Blood Gas Tidal 500.0 Volume Blood Gas Low 5.0 PEEP Setting Blood Gas Erica YUNG MD Critical Value Read Back Blood Gas Notified Whom Blood Gas 08/20/2018 11: Notified Time 34:02 PM Lactic Acid 4.5 *H Level Creatine Kinase 88367 #H Creatine Kinase 0.7 Index Creatinine 480.00 H Kinase MB (Mass) Troponin I 2.330 *H Test 08/21/18 01:37 08/21/18 02:04 08/21/18 04:10 08/21/18 05:08 Blood Gas Blood arterial Specimen Source Arterial Blood 08/21/2018 2:30 Date Drawn :48 AM Arterial Blood 7.152 *L pH (Temp corrected ) Arterial Blood 40.2 pCO2 (Temp correct) Arterial Blood 141.3 H pO2 (Temp corrected ) Arterial Blood 13.8 L HCO3 Arterial Blood -14.5 L Base Excess Arterial Blood 97.9 Oxygen Saturati on John Test ACCEPTAB Arterial Blood Right Radial Gas Puncture Site Arterial 0.3 Blood Carboxyhe moglobin Arterial Blood 0.3 Methemoglobin Blood Gas A-a 531.5 H O2 Differential Oxyhemoglobin 97.3 Percent Blood Gas 37.0 Temperature Blood Gas 30.0 Respiration Rate Blood Gas 30 Actual Respiration Rat e Blood Gas VENT - AC Modality FiO2 100.0 Blood Gas Tidal 500.0 Volume Blood Gas Low 5.0 PEEP Setting Blood Gas Jass BURROWS MD Critical Value Read Back Blood Gas [place] Notified Whom Blood Gas 08/21/2018 2:43 Notified Time :33 AM Lactic Acid 2.7 *H 2.4 *H Level White Blood 21.2 H Count Red Blood Count 4.41 L Hemoglobin 14.3 Hematocrit 43.4 Mean 98.4 Corpuscular Volume Mean 32.4 Corpuscular Hemoglobin Mean 32.9 Corpuscular Hemoglobin Conc ent Red Cell 12.9 Distribution Width Platelet Count 113 #L Mean Platelet 11.0 H Volume Immature 0.300 Granulocytes % Neutrophils % Segmented 81 H Neutrophils % (Manual) Band 11 H Neutrophils % (Manual) Lymphocytes % Lymphocytes % 6 L (Manual) Monocytes % Monocytes % 2 (Manual) Eosinophils % Basophils % Nucleated Red 0.0 Blood Cells % Immature 0.060 H Granulocytes # Neutrophils # Neutrophils # 17.7 H (Manual) Band 2.3 H Neutrophils # Lymphocytes 1.2 (Manual) Lymphocytes # Monocytes # Monocytes # 0.4 (Manual) Eosinophils # Basophils # Nucleated Red Blood Cells # Platelet DECREASED Estimate Giant Platelets 1 H Anisocytosis 1+ Microcytosis 1+ Prothrombin 28.9 H Time Prothrombin 2.3 Time Ratio INR 2.64 International Normalized Rati o Activated 37.4 H Partial Thrombo plast Time Thrombin Time 18.1 Fibrinogen 213.0 Plasma Fibrin >40 and <80 Degradation Pro H ducts D-Dimer > 74085.00 H Sodium Level 149 H Potassium Level 5.5 #H Chloride Level 120 H Carbon Dioxide 15 L Level Anion Gap 14 H Blood Urea 42 #H Nitrogen Creatinine 2.97 H Est Glomerular 25 L Filtrat Rate mL/min Glucose Level 182 Calcium Level 6.8 L Total Bilirubin 0.5 Direct 0.00 Bilirubin Indirect 0.5 Bilirubin Aspartate Amino > 7500 H Transf (AST/SGO T) Alanine 6218 H Aminotransferas e (ALT/SGPT) Alkaline 85 Phosphatase Creatine Kinase 23900 #H Creatine Kinase 0.9 Index Creatinine 782.00 H Kinase MB (Mass) Troponin I 2.680 *H Total Protein 5.9 L Albumin 3.3 Globulin 2.60 Albumin/Globuli 1.26 n Ratio Bedside Glucose 172 Test 08/21/18 07:00 08/21/18 07:20 08/21/18 09:05 08/21/18 10:00 Blood Gas Blood arterial Specimen Source Arterial Blood 08/21/2018 8:39 Date Drawn :15 AM Arterial Blood 7.124 *L pH (Temp corrected ) Arterial Blood 31.8 L pCO2 (Temp correct) Arterial Blood 425.4 H pO2 (Temp corrected ) Arterial Blood 10.2 L HCO3 Arterial Blood -17.9 L Base Excess Arterial Blood 99.1 H Oxygen Saturati on John Test ACCEPTAB Arterial Blood Right Radial Gas Puncture Site Arterial 0.3 Blood Carboxyhe moglobin Arterial Blood 1.0 Methemoglobin Blood Gas A-a 255.8 H O2 Differential Oxyhemoglobin 97.8 Percent Blood Gas 37.0 Temperature Blood Gas 30.0 Respiration Rate Blood Gas 30 Actual Respiration Rat e Blood Gas VENT - AC Modality FiO2 100.0 Blood Gas Tidal 500.0 Volume Blood Gas Low 5.0 PEEP Setting Blood Gas Juan Luis DUPONT RN Critical Value Read Back Blood Gas [place] Notified Whom Blood Gas 08/21/2018 8:55 Notified Time :51 AM Potassium Level 6.6 *H Bedside Glucose 195 275 H BERNARD SINGH Aug 21, 2018 10:30
[2018-08-21] MEDS: SODIUM BICARBONATE (IV ADD) 100 MEQ in DEXTROSE 5% 1,000 ML IV SCH ×2 (11:08→20:28)
--- NOTE | 2018-08-21 11:15 | CONS ---
Date/Time of Note Date/Time of Note DATE: 08/21/18 TIME: 11:10 Assessment/Plan Assessment/Plan Chief Complaint/Hosp Course Drug use possible overdose multiorgan failure possible septic shock elevated Troponin stable in mid 2 range preserved EF elevation of troponin is not indicative of occlusive coronary disease likely demand mediated continue supportive care broad spectrum abx vent support pressors to maintain BP dialysis as needed Consultation Date/Type/Reason Admit Date/Time Aug 20, 2018 at 21:39 Type of Consult Cardiology Hx of Present Illness Found Unresponsive blood positive for ampheamines and opiates in multiorgan failure including liver , renal failure and shock requiring pressors. Echo shows preserved ejection fraction troponin elevated 33-year-old male who presents via EMS for altered mental status. EMS reports that the patient was found in a local parking lot unresponsive. He was hypoglycemic in the 30s and given dextrose. The patient was found to have pinpoint pupils and did not respond to 2 mg of Narcan. A nasal trumpet was inserted and the patient was brought to the emergency room. He continues to be unresponsive and remains critical. Remainder of HPI is very limited. EMR shows a prior visit for alcohol related issues. Subjective hx not possible: pt non-verbal, pt critical Social History Alcohol Use: other (Previous admission for alcohol use.) Exam/Review of Systems Vital Signs Vitals Vital Signs Date Temp Pulse Resp B/P (MAP) Pulse Ox O2 O2 Flow FiO2 Time Delivery Rate 08/21/18 40 09:20 08/21/18 110 30 100 09:16 08/21/18 111/71 08:45 (84) 08/21/18 98.5 Mechanical 08:00 Ventilator Intake and Output 08/20/18 08/20/18 08/21/18 1515:00 23:00 07:00 IntakeIntake Total 1742.39 ml OutputOutput Total 510 ml BalanceBalance 1232.39 ml Exam Constitutional: No alert, No oriented, No non-verbal (intubated) Head: normocephalic Respiratory: diminished breath sounds Cardiovascular: regular rate and rhythm Musculoskeletal: nl extremities to inspection Extremities: No edema Medications Medications Current Medications Fentanyl 100 ml @ 2.5 mls/hr TITRATE ONCE IV ; Start 08/20/18 at 21:00; Stop 08/22/18 at 12:59 Albuterol (Ventolin Hfa) 4 puff Q2H RESP THERAPY PRN INH SHORTNESS OF BREATH; Start 08/20/18 at 22:00 Ipratropium [place] (Atrovent Hfa) 4 puff Q2H RESP THERAPY PRN INH SHORTNESS OF BREATH; Start 08/20/18 at 22:00 Acetaminophen (Tylenol Liquid) 650 mg Q6H PRN PO PAIN LEVEL 1-3 OR FEVER; Start 08/20/18 at 22:00 Pantoprazole (Protonix Iv) 40 mg BID@0600,1800 IV Last administered on 08/21/18at 06:16; Admin Dose 40 MG; Start 08/20/18 at 22:00 Norepinephrine 16 mg/Dextrose 500 ml @ 1.88 mls/hr TITRATE IV Last administered on 08/21/18at 00:26; Admin Dose 1.88 MLS/HR; Start 08/21/18 at 00:00 Sodium Chloride 1,000 ml @ 150 mls/hr Q6H40M IV Last administered on 08/21/18at 09:17; Admin Dose 300 MLS/HR; Start 08/21/18 at 02:00 Vancomycin HCl (Vanco Iv Per Pharmacy) VANCOMYCIN PER PHARMACY PER PROTOCOL XX ; Start 08/21/18 at 00:00 Piperacillin Sod/ Tazobactam Sod 100 ml @ 200 mls/hr Q8 IVPB Last administered on 08/21/18at 04:00; Admin Dose 200 MLS/HR; Start 08/21/18 at 00:00 Insulin Aspart (Novolog Insulin Pen) NOVOLOG *MILD* ALGORI... Q4 SC Last administered on 08/21/18at 05:25; Admin Dose 1 UNIT; Start 08/21/18 at 01:00 Vancomycin HCl 250 ml @ 125 mls/hr Q24H IVPB ; Start 08/21/18 at 20:00 Thiamine HCl (Vitamin B1) 300 mg DAILY@0300 IM Last administered on 08/21/18at 04:00; Admin Dose 300 MG; Start 08/21/18 at 03:00; Stop 08/24/18 at 02:59 Midazolam HCl 50 ml @ 3 mls/hr TITRATE IV Last administered on 08/21/18at 05:11; Admin Dose 4 MLS/HR; Start 08/21/18 at 04:00 Dextrose (D50w Syringe) ONCE PRN IV DECREASED GLUCOSE Last administered on at 09:09; Admin Dose 50 ML; Start 08/21/18 at 08:30; Stop 08/22/18 at 23:00 Influenza Virus Vaccine Quadrival (Fluzone) 0.5 ml ONCE ONCE IM* ; Start 08/24/18 at 10:00; Stop 08/24/18 at 10:01 Sodium Bicarbonate 100 meq/Dextrose 1,000 ml @ 100 mls/hr Q10H IV Last administered on 08/21/18at 11:08; Admin Dose 100 MLS/HR; Start 08/21/18 at 10:00 Results Result Diagram: 08/21/18 0410 08/21/18 0720 Results 24 hrs Laboratory Tests Test 08/20/18 20:19 08/20/18 20:20 08/20/18 20:21 08/20/18 20:45 POC Venous 7.0 *H Lactate Urine Color YELLOW Urine Clarity SLIGHTLY CLOUD Y A Urine pH 5.0 Urine Specific 1.018 [place] Urine Ketones NEGATIVE Urine Nitrite NEGATIVE Urine Bilirubin NEGATIVE Urine NEGATIVE Urobilinogen Urine Leukocyte NEGATIVE Esterase Urine 0 Microscopic RBC Urine 1 Microscopic WBC Urine NEGATIVE Hemoglobin Urine Glucose 3+ H Urine Total 1+ H Protein Urine Opiates Positive Screen Urine Negative Barbiturates Urine Positive Amphetamines Screen Urine Negative Benzodiazepines Screen Urine Cocaine Negative Screen Urine Positive Cannabinoids White Blood 20.2 #H Count Red Blood Count 4.65 L Hemoglobin 15.1 Hematocrit 46.6 Mean 100.2 Corpuscular Volume Mean 32.5 Corpuscular Hemoglobin Mean 32.4 Corpuscular Hemoglobin Conc ent Red Cell 13.2 Distribution Width Platelet Count 229 # Mean Platelet 10.2 Volume Immature 0.900 H Granulocytes % Neutrophils % Segmented 61 Neutrophils % (Manual) Band 25 H Neutrophils % (Manual) Lymphocytes % 5 L (Manual) Reactive 4 H Lymphocytes % (Manual) Monocytes % 3 (Manual) Eosinophils % Metamyelocytes 2 H % (manual) Nucleated Red 0.1 H Blood Cells % Immature 0.180 H Granulocytes # Neutrophils # Neutrophils # 13.3 H (Manual) Band 5.0 H Neutrophils # Lymphocytes 1.0 (Manual) Reactive 0.8 H Lymphocytes # Monocytes # 0.6 (Manual) Eosinophils # Metamyelocytes 0.4 H # Platelet NORMAL Estimate Poikilocytosis 1+ Sodium Level 148 H Potassium Level 3.0 L Chloride Level 115 H Carbon Dioxide 13 L Level Anion Gap 20 H Blood Urea 27 H Nitrogen Creatinine 2.91 H Est Glomerular 25 L Filtrat Rate mL/min Glucose Level 157 Calcium Level 7.3 L Magnesium Level 2.6 H Total Bilirubin 0.2 Direct 0.00 Bilirubin Indirect 0.2 Bilirubin Aspartate Amino 6223 H Transf (AST/SGO T) Alanine 5039 H Aminotransferas e (ALT/SGPT) Alkaline 101 Phosphatase Creatine Kinase 9300 H Troponin I 2.370 *H Total Protein 6.1 Albumin 3.3 Globulin 2.80 Albumin/Globuli 1.17 n Ratio Salicylates < 1.0 L Level Acetaminophen < 10.0 L Level Ethyl Alcohol 95.0 H Level Hepatitis B NEGATIVE Surface Antigen Hepatitis B NEGATIVE Core Total Antibody Hepatitis C NEGATIVE Antibody Blood Gas Blood Specimen arterial Source Arterial Blood 08/20/2018 9:4 Date Drawn 5:15 PM Arterial Blood 7.021 *L pH (Temp corrected ) Arterial Blood 47.1 H pCO2 (Temp correct) Arterial Blood 85.6 pO2 (Temp corrected ) Arterial Blood 11.9 L HCO3 Arterial Blood -18.9 L Base Excess Arterial Blood 91.2 L Oxygen Saturati on John Test ACCEPTAB Arterial Blood Right Radial Gas Puncture Site Arterial 0.1 Blood Carboxyhe moglobin Arterial Blood 0.3 Methemoglobin Blood Gas A-a 580.3 H O2 Differential Oxyhemoglobin 90.8 L Percent Blood Gas 37.0 Temperature Blood Gas 15.0 Respiration Rate Blood Gas 20 Actual Respiration Rat e Blood Gas VENT - AC Modality FiO2 100.0 Blood Gas Tidal 500.0 Volume Blood Gas Low 5.0 PEEP Setting Blood Gas Erica YUNG MD Critical Value Read Back Blood Gas Notified Whom Blood Gas 08/20/2018 9:5 Notified Time 1:24 PM Test 08/20/18 21:37 08/20/18 22:17 08/20/18 23:00 08/21/18 00:22 Platelet Count 184 Prothrombin 29.6 H Time Prothrombin 2.3 Time Ratio INR 2.72 International Normalized Rati o Activated 39.9 H Partial Thrombo plast Time Thrombin Time 18.8 Fibrinogen 208.0 Plasma Fibrin >10 and <40 H Degradation Pro ducts D-Dimer 8363.85 H D-Dimer Comment POC Venous 4.6 *H Lactate Blood Gas Blood Specimen arterial Source Arterial Blood 08/20/2018 11: Date Drawn 25:25 PM Arterial Blood 7.031 *L pH (Temp corrected ) Arterial Blood 50.0 H pCO2 (Temp correct) Arterial Blood 82.1 pO2 (Temp corrected ) Arterial Blood 12.9 L HCO3 Arterial Blood -17.9 L Base Excess Arterial Blood 90.6 L Oxygen Saturati on John Test ACCEPTAB Arterial Blood Left Radial Gas Puncture Site Arterial 0.3 Blood Carboxyhe moglobin Arterial Blood 0.3 Methemoglobin Blood Gas A-a 580.9 H O2 Differential Oxyhemoglobin 90.1 L Percent Blood Gas 37.0 Temperature Blood Gas 15.0 Respiration Rate Blood Gas 30 Actual Respiration Rat e Blood Gas VENT - AC Modality FiO2 100.0 Blood Gas Tidal 500.0 Volume Blood Gas Low 5.0 PEEP Setting Blood Gas Erica YUNG MD Critical Value Read Back Blood Gas Notified Whom Blood Gas 08/20/2018 11: Notified Time 34:02 PM Lactic Acid 4.5 *H Level Creatine Kinase 30044 #H Creatine Kinase 0.7 Index Creatinine 480.00 H Kinase MB (Mass) Troponin I 2.330 *H Test 08/21/18 01:37 08/21/18 02:04 08/21/18 04:10 08/21/18 05:08 Blood Gas Blood arterial Specimen Source Arterial Blood 08/21/2018 2:30 Date Drawn :48 AM Arterial Blood 7.152 *L pH (Temp corrected ) Arterial Blood 40.2 pCO2 (Temp correct) Arterial Blood 141.3 H pO2 (Temp corrected ) Arterial Blood 13.8 L HCO3 Arterial Blood -14.5 L Base Excess Arterial Blood 97.9 Oxygen Saturati on John Test ACCEPTAB Arterial Blood Right Radial Gas Puncture Site Arterial 0.3 Blood Carboxyhe moglobin Arterial Blood 0.3 Methemoglobin Blood Gas A-a 531.5 H O2 Differential Oxyhemoglobin 97.3 Percent Blood Gas 37.0 Temperature Blood Gas 30.0 Respiration Rate Blood Gas 30 Actual Respiration Rat e Blood Gas VENT - AC Modality FiO2 100.0 Blood Gas Tidal 500.0 Volume Blood Gas Low 5.0 PEEP Setting Blood Gas Jass BURROWS MD Critical Value Read Back Blood Gas MA Notified Whom Blood Gas 08/21/2018 2:43 Notified Time :33 AM Lactic Acid 2.7 *H 2.4 *H Level White Blood 21.2 H Count Red Blood Count 4.41 L Hemoglobin 14.3 Hematocrit 43.4 Mean 98.4 Corpuscular Volume Mean 32.4 Corpuscular Hemoglobin Mean 32.9 Corpuscular Hemoglobin Conc ent Red Cell 12.9 Distribution Width Platelet Count 113 #L Mean Platelet 11.0 H Volume Immature 0.300 Granulocytes % Neutrophils % Segmented 81 H Neutrophils % (Manual) Band 11 H Neutrophils % (Manual) Lymphocytes % Lymphocytes % 6 L (Manual) Monocytes % Monocytes % 2 (Manual) Eosinophils % Basophils % Nucleated Red 0.0 Blood Cells % Immature 0.060 H Granulocytes # Neutrophils # Neutrophils # 17.7 H (Manual) Band 2.3 H Neutrophils # Lymphocytes 1.2 (Manual) Lymphocytes # Monocytes # Monocytes # 0.4 (Manual) Eosinophils # Basophils # Nucleated Red Blood Cells # Platelet DECREASED Estimate Giant Platelets 1 H Anisocytosis 1+ Microcytosis 1+ Prothrombin 28.9 H Time Prothrombin 2.3 Time Ratio INR 2.64 International Normalized Rati o Activated 37.4 H Partial Thrombo plast Time Thrombin Time 18.1 Fibrinogen 213.0 Plasma Fibrin >40 and <80 Degradation Pro H ducts D-Dimer > 91958.00 H Sodium Level 149 H Potassium Level 5.5 #H Chloride Level 120 H Carbon Dioxide 15 L Level Anion Gap 14 H Blood Urea 42 #H Nitrogen Creatinine 2.97 H Est Glomerular 25 L Filtrat Rate mL/min Glucose Level 182 Calcium Level 6.8 L Total Bilirubin 0.5 Direct 0.00 Bilirubin Indirect 0.5 Bilirubin Aspartate Amino > 7500 H Transf (AST/SGO T) Alanine 6218 H Aminotransferas e (ALT/SGPT) Alkaline 85 Phosphatase Creatine Kinase 43535 #H Creatine Kinase 0.9 Index Creatinine 782.00 H Kinase MB (Mass) Troponin I 2.680 *H Total Protein 5.9 L Albumin 3.3 Globulin 2.60 Albumin/Globuli 1.26 n Ratio Bedside Glucose 172 Test 08/21/18 07:00 08/21/18 07:20 08/21/18 09:05 08/21/18 10:00 Blood Gas Blood arterial Specimen Source Arterial Blood 08/21/2018 8:39 Date Drawn :15 AM Arterial Blood 7.124 *L pH (Temp corrected ) Arterial Blood 31.8 L pCO2 (Temp correct) Arterial Blood 425.4 H pO2 (Temp corrected ) Arterial Blood 10.2 L HCO3 Arterial Blood -17.9 L Base Excess Arterial Blood 99.1 H Oxygen Saturati on John Test ACCEPTAB Arterial Blood Right Radial Gas Puncture Site Arterial 0.3 Blood Carboxyhe moglobin Arterial Blood 1.0 Methemoglobin Blood Gas A-a 255.8 H O2 Differential Oxyhemoglobin 97.8 Percent Blood Gas 37.0 Temperature Blood Gas 30.0 Respiration Rate Blood Gas 30 Actual Respiration Rat e Blood Gas VENT - AC Modality FiO2 100.0 Blood Gas Tidal 500.0 Volume Blood Gas Low 5.0 PEEP Setting Blood Gas Juan Luis DUPONT RN Critical Value Read Back Blood Gas Maury Notified Whom Blood Gas 08/21/2018 8:55 Notified Time :51 AM Potassium Level 6.6 *H Bedside Glucose 195 275 H CHRISTIANE DEL VALLE MD Aug 21, 2018 11:15
--- NOTE | 2018-08-21 12:12 | OPR ---
DATE OF OPERATION: PREOPERATIVE DIAGNOSIS: Renal failure. POSTOPERATIVE DIAGNOSIS: Renal failure. OPERATION PERFORMED: Right femoral hemodialysis catheter placement. SURGEON: Keyla Sommer MD ANESTHESIA: Local. CONSENT: Risks, benefits, complications, alternative therapies explained to the patient and the fami ly, explained to the patient; however, the patient is intubated and unable to consent. Two doctors h ad to sign and I proceeded. OPERATIVE TECHNIQUE: Patient was placed in supine position, prepped and draped in usual sterile fash ion, 1% lidocaine was used throughout the operation for local anesthesia. Access was gained in the r ight common femoral vein. Guidewire was advanced through without any difficulty. Subcutaneous tissu es dilated, 25 cm dialysis catheter advanced over guidewire, secured to skin using silk sutures. Bot h ports of the catheter were aspirated and injected using saline solution. The patient tolerated the procedure well. Dictated By: KEYLA SOMMER MD FM/NTS Conf#: [id number] DID#: [id number] CC: QASIM BURROWS MD;*EndCC*
--- NOTE | 2018-08-21 12:21 | CONS ---
Date/Time of Note Date/Time of Note DATE: 08/21/18 TIME: 12:16 Assessment/Plan Assessment/Plan Additional Assessment/Plan There is relatively mild coagulopathy but no frankly severe DIC. I would continue to monitor but given the multisystemic damage, his prognosis is guarded despite his young age. Consultation Date/Type/Reason Admit Date/Time Aug 20, 2018 at 21:39 Date of Consultation: Aug 21, 2018 Type of Consult hematology Reason for Consultation coagulopathy Requesting Provider: QASIM BURROWS Hx of Present Illness 33 yo man found in parking lot and now comatose and intubated. His toxicology screen was positive for multiple drugs. There is evidence for rhabdomyolysis, renal failure and shock in addition to the altered mental status and respiratory failure. Social History Alcohol Use: other (Previous admission for alcohol use.) Exam/Review of Systems Vital Signs Vitals Vital Signs Date Temp Pulse Resp B/P (MAP) Pulse Ox O2 O2 Flow FiO2 Time Delivery Rate 08/21/18 102 30 100 40 11:00 08/21/18 111/71 08:45 (84) 08/21/18 98.5 Mechanical 08:00 Ventilator Intake and Output 08/20/18 08/20/18 08/21/18 1515:00 23:00 07:00 IntakeIntake Total 1742.39 ml OutputOutput Total 510 ml BalanceBalance 1232.39 ml Exam Constitutional: other (comatose) Head: normocephalic Eyes: nl conjunctiva ENMT: intubated Respiratory: diminished breath sounds Cardiovascular: regular rate and rhythm Gastrointestinal: soft, non-tender Medications Medications Current Medications Fentanyl 100 ml @ 2.5 mls/hr TITRATE ONCE IV ; Start 08/20/18 at 21:00; Stop 08/22/18 at 12:59 Albuterol (Ventolin Hfa) 4 puff Q2H RESP THERAPY PRN INH SHORTNESS OF BREATH; Start 08/20/18 at 22:00 Ipratropium [place] (Atrovent Hfa) 4 puff Q2H RESP THERAPY PRN INH SHORTNESS OF BREATH; Start 08/20/18 at 22:00 Acetaminophen (Tylenol Liquid) 650 mg Q6H PRN PO PAIN LEVEL 1-3 OR FEVER; Start 08/20/18 at 22:00 Pantoprazole (Protonix Iv) 40 mg BID@0600,1800 IV Last administered on 08/21/18at 06:16; Admin Dose 40 MG; Start 08/20/18 at 22:00 Norepinephrine 16 mg/Dextrose 500 ml @ 1.88 mls/hr TITRATE IV Last admi nistered on 08/21/18at 00:26; Admin Dose 1.88 MLS/HR; Start 08/21/18 at 00:00 Sodium Chloride 1,000 ml @ 150 mls/hr Q6H40M IV Last administered on 08/21/18at 09:17; Admin Dose 300 MLS/HR; Start 08/21/18 at 02:00 Vancomycin HCl (Vanco Iv Per Pharmacy) VANCOMYCIN PER PHARMACY PER PROTOCOL XX ; Start 08/21/18 at 00:00 Piperacillin Sod/ Tazobactam Sod 100 ml @ 200 mls/hr Q8 IVPB Last administered on 08/21/18at 04:00; Admin Dose 200 MLS/HR; Start 08/21/18 at 00:00 Insulin Aspart (Novolog Insulin Pen) NOVOLOG *MILD* ALGORI... Q4 SC Last administered on 08/21/18at 05:25; Admin Dose 1 UNIT; Start 08/21/18 at 01:00 Vancomycin HCl 250 ml @ 125 mls/hr Q24H IVPB ; Start 08/21/18 at 20:00 Thiamine HCl (Vitamin B1) 300 mg DAILY@0300 IM Last administered on 08/21/18at 04:00; Admin Dose 300 MG; Start 08/21/18 at 03:00; Stop 08/24/18 at 02:59 Midazolam HCl 50 ml @ 3 mls/hr TITRATE IV Last administered on 08/21/18at 05:11; Admin Dose 4 MLS/HR; Start 08/21/18 at 04:00 Dextrose (D50w Syringe) ONCE PRN IV DECREASED GLUCOSE Last administered on 08/21/18at 09:09; Admin Dose 50 ML; Start 08/21/18 at 08:30; Stop 08/22/18 at 23:00 Influenza Virus Vaccine Quadrival (Fluzone) 0.5 ml ONCE ONCE IM* ; Start 08/24/18 at 10:00; Stop 08/24/18 at 10:01 Sodium Bicarbonate 100 meq/Dextrose 1,000 ml @ 100 mls/hr Q10H IV Last administered on 08/21/18at 11:08; Admin Dose 100 MLS/HR; Start 08/21/18 at 10:00 Results Result Diagram: 08/21/18 0410 08/21/18 0720 Results 24 hrs Laboratory Tests Test 08/20/18 20:19 08/20/18 20:20 08/20/18 20:21 08/20/18 20:45 POC Venous 7.0 *H Lactate Urine Color YELLOW Urine Clarity SLIGHTLY CLOUD Y A Urine pH 5.0 Urine Specific 1.018 [place] Urine Ketones NEGATIVE Urine Nitrite NEGATIVE Urine Bilirubin NEGATIVE Urine NEGATIVE Urobilinogen Urine Leukocyte NEGATIVE Esterase Urine 0 Microscopic RBC Urine 1 Microscopic WBC Urine NEGATIVE Hemoglobin Urine Glucose 3+ H Urine Total 1+ H Protein Urine Opiates Positive Screen Urine Negative Barbiturates Urine Positive Amphetamines Screen Urine Negative Benzodiazepines Screen Urine Cocaine Negative Screen Urine Positive Cannabinoids White Blood 20.2 #H Count Red Blood Count 4.65 L Hemoglobin 15.1 Hematocrit 46.6 Mean 100.2 Corpuscular Volume Mean 32.5 Corpuscular Hemoglobin Mean 32.4 Corpuscular Hemoglobin Conc ent Red Cell 13.2 Distribution Width Platelet Count 229 # Mean Platelet 10.2 Volume Immature 0.900 H Granulocytes % Neutrophils % Segmented 61 Neutrophils % (Manual) Band 25 H Neutrophils % (Manual) Lymphocytes % 5 L (Manual) Reactive 4 H Lymphocytes % (Manual) Monocytes % 3 (Manual) Eosinophils % Metamyelocytes 2 H % (manual) Nucleated Red 0.1 H Blood Cells % Immature 0.180 H Granulocytes # Neutrophils # Neutrophils # 13.3 H (Manual) Band 5.0 H Neutrophils # Lymphocytes 1.0 (Manual) Reactive 0.8 H Lymphocytes # Monocytes # 0.6 (Manual) Eosinophils # Metamyelocytes 0.4 H # Platelet NORMAL Estimate Poikilocytosis 1+ Sodium Level 148 H Potassium Level 3.0 L Chloride Level 115 H Carbon Dioxide 13 L Level Anion Gap 20 H Blood Urea 27 H Nitrogen Creatinine 2.91 H Est Glomerular 25 L Filtrat Rate mL/min Glucose Level 157 Calcium Level 7.3 L Magnesium Level 2.6 H Total Bilirubin 0.2 Direct 0.00 Bilirubin Indirect 0.2 Bilirubin Aspartate Amino 6223 H Transf (AST/SGO T) Alanine 5039 H Aminotransferas e (ALT/SGPT) Alkaline 101 Phosphatase Creatine Kinase 9300 H Troponin I 2.370 *H Total Protein 6.1 Albumin 3.3 Globulin 2.80 Albumin/Globuli 1.17 n Ratio Salicylates < 1.0 L Level Acetaminophen < 10.0 L Level Ethyl Alcohol 95.0 H Level Hepatitis B NEGATIVE Surface Antigen Hepatitis B NEGATIVE Core Total Antibody Hepatitis C NEGATIVE Antibody Blood Gas Blood Specimen arterial Source Arterial Blood 08/20/2018 9:4 Date Drawn 5:15 PM Arterial Blood 7.021 *L pH (Temp corrected ) Arterial Blood 47.1 H pCO2 (Temp correct) Arterial Blood 85.6 pO2 (Temp corrected ) Arterial Blood 11.9 L HCO3 Arterial Blood -18.9 L Base Excess Arterial Blood 91.2 L Oxygen Saturati on John Test ACCEPTAB Arterial Blood Right Radial Gas Puncture Site Arterial 0.1 Blood Carboxyhe moglobin Arterial Blood 0.3 Methemoglobin Blood Gas A-a 580.3 H O2 Differential Oxyhemoglobin 90.8 L Percent Blood Gas 37.0 Temperature Blood Gas 15.0 Respiration Rate Blood Gas 20 Actual Respiration Rat e Blood Gas VENT - AC Modality FiO2 100.0 Blood Gas Tidal 500.0 Volume Blood Gas Low 5.0 PEEP Setting Blood Gas Erica YUNG MD Critical Value Read Back Blood Gas Notified Whom Blood Gas 08/20/2018 9:5 Notified Time 1:24 PM Test 08/20/18 21:37 08/20/18 22:17 08/20/18 23:00 08/21/18 00:22 Platelet Count 184 Prothrombin 29.6 H Time Prothrombin 2.3 Time Ratio INR 2.72 International Normalized Rati o Activated 39.9 H Partial Thrombo plast Time Thrombin Time 18.8 Fibrinogen 208.0 Plasma Fibrin >10 and <40 H Degradation Pro ducts D-Dimer 8363.85 H D-Dimer Comment POC Venous 4.6 *H Lactate Blood Gas Blood Specimen arterial Source Arterial Blood 08/20/2018 11: Date Drawn 25:25 PM Arterial Blood 7.031 *L pH (Temp corrected ) Arterial Blood 50.0 H pCO2 (Temp correct) Arterial Blood 82.1 pO2 (Temp corrected ) Arterial Blood 12.9 L HCO3 Arterial Blood -17.9 L Base Excess Arterial Blood 90.6 L Oxygen Saturati on John Test ACCEPTAB Arterial Blood Left Radial Gas Puncture Site Arterial 0.3 Blood Carboxyhe moglobin Arterial Blood 0.3 Methemoglobin Blood Gas A-a 580.9 H O2 Differential Oxyhemoglobin 90.1 L Percent Blood Gas 37.0 Temperature Blood Gas 15.0 Respiration Rate Blood Gas 30 Actual Respiration Rat e Blood Gas VENT - AC Modality FiO2 100.0 Blood Gas Tidal 500.0 Volume Blood Gas Low 5.0 PEEP Setting Blood Gas Erica YUNG MD Critical Value Read Back Blood Gas Notified Whom Blood Gas 08/20/2018 11: Notified Time 34:02 PM Lactic Acid 4.5 *H Level Creatine Kinase 92412 #H Creatine Kinase 0.7 Index Creatinine 480.00 H Kinase MB (Mass) Troponin I 2.330 *H Test 08/21/18 01:37 08/21/18 02:04 08/21/18 04:10 08/21/18 05:08 Blood Gas Blood arterial Specimen Source Arterial Blood 08/21/2018 2:30 Date Drawn :48 AM Arterial Blood 7.152 *L pH (Temp corrected ) Arterial Blood 40.2 pCO2 (Temp correct) Arterial Blood 141.3 H pO2 (Temp corrected ) Arterial Blood 13.8 L HCO3 Arterial Blood -14.5 L Base Excess Arterial Blood 97.9 Oxygen Saturati on John Test ACCEPTAB Arterial Blood Right Radial Gas Puncture Site Arterial 0.3 Blood Carboxyhe moglobin Arterial Blood 0.3 Methemoglobin Blood Gas A-a 531.5 H O2 Differential Oxyhemoglobin 97.3 Percent Blood Gas 37.0 Temperature Blood Gas 30.0 Respiration Rate Blood Gas 30 Actual Respiration Rat e Blood Gas VENT - AC Modality FiO2 100.0 Blood Gas Tidal 500.0 Volume Blood Gas Low 5.0 PEEP Setting Blood Gas Jass BURROWS MD Critical Value Read Back Blood Gas [place] Notified Whom Blood Gas 08/21/2018 2:43 Notified Time :33 AM Lactic Acid 2.7 *H 2.4 *H Level White Blood 21.2 H Count Red Blood Count 4.41 L Hemoglobin 14.3 Hematocrit 43.4 Mean 98.4 Corpuscular Volume Mean 32.4 Corpuscular Hemoglobin Mean 32.9 Corpuscular Hemoglobin Conc ent Red Cell 12.9 Distribution Width Platelet Count 113 #L Mean Platelet 11.0 H Volume Immature 0.300 Granulocytes % Neutrophils % Segmented 81 H Neutrophils % (Manual) Band 11 H Neutrophils % (Manual) Lymphocytes % Lymphocytes % 6 L (Manual) Monocytes % Monocytes % 2 (Manual) Eosinophils % Basophils % Nucleated Red 0.0 Blood Cells % Immature 0.060 H Granulocytes # Neutrophils # Neutrophils # 17.7 H (Manual) Band 2.3 H Neutrophils # Lymphocytes 1.2 (Manual) Lymphocytes # Monocytes # Monocytes # 0.4 (Manual) Eosinophils # Basophils # Nucleated Red Blood Cells # Platelet DECREASED Estimate Giant Platelets 1 H Anisocytosis 1+ Microcytosis 1+ Prothrombin 28.9 H Time Prothrombin 2.3 Time Ratio INR 2.64 International Normalized Rati o Activated 37.4 H Partial Thrombo plast Time Thrombin Time 18.1 Fibrinogen 213.0 Plasma Fibrin >40 and <80 Degradation Pro H ducts D-Dimer > 25659.00 H Sodium Level 149 H Potassium Level 5.5 #H Chloride Level 120 H Carbon Dioxide 15 L Level Anion Gap 14 H Blood Urea 42 #H Nitrogen Creatinine 2.97 H Est Glomerular 25 L Filtrat Rate mL/min Glucose Level 182 Calcium Level 6.8 L Total Bilirubin 0.5 Direct 0.00 Bilirubin Indirect 0.5 Bilirubin Aspartate Amino > 7500 H Transf (AST/SGO T) Alanine 6218 H Aminotransferas e (ALT/SGPT) Alkaline 85 Phosphatase Creatine Kinase 29067 #H Creatine Kinase 0.9 Index Creatinine 782.00 H Kinase MB (Mass) Troponin I 2.680 *H Total Protein 5.9 L Albumin 3.3 Globulin 2.60 Albumin/Globuli 1.26 n Ratio Bedside Glucose 172 Test 08/21/18 07:00 08/21/18 07:20 08/21/18 09:05 08/21/18 10:00 Blood Gas Blood arterial Specimen Source Arterial Blood 08/21/2018 8:39 Date Drawn :15 AM Arterial Blood 7.124 *L pH (Temp corrected ) Arterial Blood 31.8 L pCO2 (Temp correct) Arterial Blood 425.4 H pO2 (Temp corrected ) Arterial Blood 10.2 L HCO3 Arterial Blood -17.9 L Base Excess Arterial Blood 99.1 H Oxygen Saturati on John Test ACCEPTAB Arterial Blood Right Radial Gas Puncture Site Arterial 0.3 Blood Carboxyhe moglobin Arterial Blood 1.0 Methemoglobin Blood Gas A-a 255.8 H O2 Differential Oxyhemoglobin 97.8 Percent Blood Gas 37.0 Temperature Blood Gas 30.0 Respiration Rate Blood Gas 30 Actual Respiration Rat e Blood Gas VENT - AC Modality FiO2 100.0 Blood Gas Tidal 500.0 Volume Blood Gas Low 5.0 PEEP Setting Blood Gas M. DUPONT RN Critical Value Read Back Blood Gas [place] Notified Whom Blood Gas 08/21/2018 8:55 Notified Time :51 AM Potassium Level 6.6 *H Bedside Glucose 195 275 H MAXIMO HOOD MD Aug 21, 2018 12:21
--- NOTE | 2018-08-21 15:23 | PN ---
Date/Time of Note Date/Time of Note DATE: 08/21/18 TIME: 15:10 Assessment/Plan VTE Prophylaxis Risk score (from Ns)>0 risk: 8 SCD applied (from Ns): Yes Pharmacological prophylaxis: heparin Lines/Catheters IV C[facility]ter [facility]from [facility] Saurabh Urinary Cath still in place: Yes Reason Cath still needed: other (indicate) (intubated) Assessment/Plan Assessment/Plan 33 yo man brought in found down; positive for alcohol, methamphetamine, cannabis, opioids. #JULIAN - Oliguric renal failure with hyperkalemia (after potassium replacement), severe metabolic acidosis - Likely due to a combination of rhabdo and drug use. - Dialysis per renal. # acute ventilatory dependent respiratory failure: - Secondary to polysubstance overdose resulting in multiorgan dysfunction. - Severe metabolic acidosis with inadequate respiratory compensation - CXR also with evidence of possible infiltrate or vascular congestion - Will treat empirically with vanco/zosyn for possible community-acquired pneumonia. # Acute encephalopathy: - From polysubstance abuse. Currently sedated on Versed as well. # Elevated troponin - Elevated troponin is stable. - Dr. Nj consulted. Likely demand ischemia from drug use. - Will not treat per NSTEMI protocol. # transaminitis: - May be from shock liver or drug use. - Hep B, Hep C negative. # Rhabdomyolysis: - Secondary to patient found down as well as polysubstance abuse. - Aggressive IV fluid hydration with normal saline - Now requiring dialysis. # Coagulopathy - May be due to liver and renal injury as well as drug use. - No DIC - Will watch closely. # polysubstance abuse: - Again patient was found to be positive for opioids, methamphetamine, marijuana and an elevated blood alcohol level. - Thiamine 300 mg IM daily times 3 days, further treatment as per the clinical course # DVT and GI prophylaxis: Heparin subQ, Protonix twice daily Social work consulted for next of kin; after very diligent search no one has been found yet. Subjective 24 Hr Interval Summary Free Text/Dictation No acute overnight events. Patient is anuric. Also had hyperK. Decision was made to proceed with HD; Malekmehr placed catheter, currently on HD. Still intubated and sedated. Exam/Review of Systems Vital Signs Vitals Vital Signs Date Temp Pulse Resp B/P (MAP) Pulse Ox O2 O2 Flow FiO2 Time Delivery Rate 08/21/18 106 30 116/77 100 14:30 (90) 08/21/18 Mechanical 14:00 Ventilator 08/21/18 98.6 12:30 08/21/18 30 12:00 Intake and Output 08/20/18 08/20/18 08/21/18 1515:00 23:00 07:00 IntakeIntake Total 1742.39 ml OutputOutput Total 510 ml BalanceBalance 1232.39 ml Exam Gen: Well developed young man in no acute distress. Eyes: Pinpoint pupils bilaterally HEENT: ET tube in place, moist mucous membranes, Card: Regular rate and rhythm no murmurs Pulm: Mechanical breath sounds bilaterally, no crackes. Abd: Soft, nondistended. Ext: No cyanosis/clubbing/edema Skin: Large fluid-filled bulla R medial thigh. : Suh in place with minimal urine output. Medications Medications Current Medications Fentanyl 100 ml @ 2.5 mls/hr TITRATE ONCE IV ; Start 08/20/18 at 21:00; Stop 08/22/18 at 12:59 Albuterol (Ventolin Hfa) 4 puff Q2H RESP THERAPY PRN INH SHORTNESS OF BREATH; Start 08/20/18 at 22:00 Ipratropium [place] (Atrovent Hfa) 4 puff Q2H RESP THERAPY PRN INH SHORTNESS OF BREATH; Start 08/20/18 at 22:00 Acetaminophen (Tylenol Liquid) 650 mg Q6H PRN PO PAIN LEVEL 1-3 OR FEVER; Start 08/20/18 at 22:00 Pantoprazole (Protonix Iv) 40 mg BID@0600,1800 IV Last administered on 08/21/18at 06:16; Admin Dose 40 MG; Start 08/20/18 at 22:00 Norepinephrine 16 mg/Dextrose 500 ml @ 1.88 mls/hr TITRATE IV Last administered on 08/21/18at 00:26; Admin Dose 1.88 MLS/HR; Start 08/21/18 at 00:00 Sodium Chloride 1,000 ml @ 150 mls/hr Q6H40M IV Last administered on 08/21/18at 09:17; Admin Dose 300 MLS/HR; Start 08/21/18 at 02:00 Vancomycin HCl (Vanco Iv Per Pharmacy) VANCOMYCIN PER PHARMACY PER PROTOCOL XX ; Start 08/21/18 at 00:00 Piperacillin Sod/ Tazobactam Sod 100 ml @ 200 mls/hr Q8 IVPB Last administered on 08/21/18at 13:30; Admin Dose 200 MLS/HR; Start 08/21/18 at 00:00 Insulin Aspart (Novolog Insulin Pen) NOVOLOG *MILD* ALGORI... Q4 SC Last administered on 08/21/18at 13:29; Admin Dose 3 UNIT; Start 08/21/18 at 01:00 Vancomycin HCl 250 ml @ 125 mls/hr Q24H IVPB ; Start 08/21/18 at 20:00 Thiamine HCl (Vitamin B1) 300 mg DAILY@0300 IM Last administered on 08/21/18at 04:00; Admin Dose 300 MG; Start 08/21/18 at 03:00; Stop 08/24/18 at 02:59 Midazolam HCl 50 ml @ 3 mls/hr TITRATE IV Last administered on 08/21/18at 05:11; Admin Dose 4 MLS/HR; Start 08/21/18 at 04:00 Dextrose (D50w Syringe) ONCE PRN IV DECREASED GLUCOSE Last administered on 08/21/18at 09:09; Admin Dose 50 ML; Start 08/21/18 at 08:30; Stop 08/22/18 at 23:00 Influenza Virus Vaccine Quadrival (Fluzone) 0.5 ml ONCE ONCE IM* ; Start at 10:00; Stop 08/24/18 at 10:01 Sodium Bicarbonate 100 meq/Dextrose 1,000 ml @ 100 mls/hr Q10H IV Last administered on 08/21/18at 11:08; Admin Dose 100 MLS/HR; Start 08/21/18 at 10:00 Results Result Diagram: 08/21/18 0410 08/21/18 1213 Results 24 hrs Laboratory Tests Test 08/20/18 20:19 08/20/18 20:20 08/20/18 20:21 08/20/18 20:45 POC Venous 7.0 *H Lactate Urine Color YELLOW Urine Clarity SLIGHTLY CLOUD Y A Urine pH 5.0 Urine Specific 1.018 [place] Urine Ketones NEGATIVE Urine Nitrite NEGATIVE Urine Bilirubin NEGATIVE Urine NEGATIVE Urobilinogen Urine Leukocyte NEGATIVE Esterase Urine 0 Microscopic RBC Urine 1 Microscopic WBC Urine NEGATIVE Hemoglobin Urine Glucose 3+ H Urine Total 1+ H Protein Urine Opiates Positive Screen Urine Negative Barbiturates Urine Positive Amphetamines Screen Urine Negative Benzodiazepines Screen Urine Cocaine Negative Screen Urine Positive Cannabinoids White Blood 20.2 #H Count Red Blood Count 4.65 L Hemoglobin 15.1 Hematocrit 46.6 Mean 100.2 Corpuscular Volume Mean 32.5 Corpuscular Hemoglobin Mean 32.4 Corpuscular Hemoglobin Conc ent Red Cell 13.2 Distribution Width Platelet Count 229 # Mean Platelet 10.2 Volume Immature 0.900 H Granulocytes % Neutrophils % Segmented 61 Neutrophils % (Manual) Band 25 H Neutrophils % (Manual) Lymphocytes % 5 L (Manual) Reactive 4 H Lymphocytes % (Manual) Monocytes % 3 (Manual) Eosinophils % Metamyelocytes 2 H % (manual) Nucleated Red 0.1 H Blood Cells % Immature 0.180 H Granulocytes # Neutrophils # Neutrophils # 13.3 H (Manual) Band 5.0 H Neutrophils # Lymphocytes 1.0 (Manual) Reactive 0.8 H Lymphocytes # Monocytes # 0.6 (Manual) Eosinophils # Metamyelocytes 0.4 H # Platelet NORMAL Estimate Poikilocytosis 1+ Sodium Level 148 H Potassium Level 3.0 L Chloride Level 115 H Carbon Dioxide 13 L Level Anion Gap 20 H Blood Urea 27 H Nitrogen Creatinine 2.91 H Est Glomerular 25 L Filtrat Rate mL/min Glucose Level 157 Calcium Level 7.3 L Magnesium Level 2.6 H Total Bilirubin 0.2 Direct 0.00 Bilirubin Indirect 0.2 Bilirubin Aspartate Amino 6223 H Transf (AST/SGO T) Alanine 5039 H Aminotransferas e (ALT/SGPT) Alkaline 101 Phosphatase Creatine Kinase 9300 H Troponin I 2.370 *H Total Protein 6.1 Albumin 3.3 Globulin 2.80 Albumin/Globuli 1.17 n Ratio Salicylates < 1.0 L Level Acetaminophen < 10.0 L Level Ethyl Alcohol 95.0 H Level Hepatitis B NEGATIVE Surface Antigen Hepatitis B NEGATIVE Core Total Antibody Hepatitis C NEGATIVE Antibody Blood Gas Blood Specimen arterial Source Arterial Blood 08/20/2018 9:4 Date Drawn 5:15 PM Arterial Blood 7.021 *L pH (Temp corrected ) Arterial Blood 47.1 H pCO2 (Temp correct) Arterial Blood 85.6 pO2 (Temp corrected ) Arterial Blood 11.9 L HCO3 Arterial Blood -18.9 L Base Excess Arterial Blood 91.2 L Oxygen Saturati on John Test ACCEPTAB Arterial Blood Right Radial Gas Puncture Site Arterial 0.1 Blood Carboxyhe moglobin Arterial Blood 0.3 Methemoglobin Blood Gas A-a 580.3 H O2 Differential Oxyhemoglobin 90.8 L Percent Blood Gas 37.0 Temperature Blood Gas 15.0 Respiration Rate Blood Gas 20 Actual Respiration Rat e Blood Gas VENT - AC Modality FiO2 100.0 Blood Gas Tidal 500.0 Volume Blood Gas Low 5.0 PEEP Setting Blood Gas Erica YUNG MD Critical Value Read Back Blood Gas Notified Whom Blood Gas 08/20/2018 9:5 Notified Time 1:24 PM Test 08/20/18 21:37 08/20/18 22:17 08/20/18 23:00 08/21/18 00:22 Platelet Count 184 Prothrombin 29.6 H Time Prothrombin 2.3 Time Ratio INR 2.72 International Normalized Rati o Activated 39.9 H Partial Thrombo plast Time Thrombin Time 18.8 Fibrinogen 208.0 Plasma Fibrin >10 and <40 H Degradation Pro ducts D-Dimer 8363.85 H D-Dimer Comment POC Venous 4.6 *H Lactate Blood Gas Blood Specimen arterial Source Arterial Blood 08/20/2018 11: Date Drawn 25:25 PM Arterial Blood 7.031 *L pH (Temp corrected ) Arterial Blood 50.0 H pCO2 (Temp correct) Arterial Blood 82.1 pO2 (Temp corrected ) Arterial Blood 12.9 L HCO3 Arterial Blood -17.9 L Base Excess Arterial Blood 90.6 L Oxygen Saturati on John Test ACCEPTAB Arterial Blood Left Radial Gas Puncture Site Arterial 0.3 Blood Carboxyhe moglobin Arterial Blood 0.3 Methemoglobin Blood Gas A-a 580.9 H O2 Differential Oxyhemoglobin 90.1 L Percent Blood Gas 37.0 Temperature Blood Gas 15.0 Respiration Rate Blood Gas 30 Actual Respiration Rat e Blood Gas VENT - AC Modality FiO2 100.0 Blood Gas Tidal 500.0 Volume Blood Gas Low 5.0 PEEP Setting Blood Gas Erica YUNG MD Critical Value Read Back Blood Gas Notified Whom Blood Gas 08/20/2018 11: Notified Time 34:02 PM Lactic Acid 4.5 *H Level Creatine Kinase 37546 #H Creatine Kinase 0.7 Index Creatinine 480.00 H Kinase MB (Mass) Troponin I 2.330 *H Test 08/21/18 01:37 08/21/18 02:04 08/21/18 04:10 08/21/18 05:08 Blood Gas Blood arterial Specimen Source Arterial Blood 08/21/2018 2:30 Date Drawn :48 AM Arterial Blood 7.152 *L pH (Temp corrected ) Arterial Blood 40.2 pCO2 (Temp correct) Arterial Blood 141.3 H pO2 (Temp corrected ) Arterial Blood 13.8 L HCO3 Arterial Blood -14.5 L Base Excess Arterial Blood 97.9 Oxygen Saturati on John Test ACCEPTAB Arterial Blood Right Radial Gas Puncture Site Arterial 0.3 Blood Carboxyhe moglobin Arterial Blood 0.3 Methemoglobin Blood Gas A-a 531.5 H O2 Differential Oxyhemoglobin 97.3 Percent Blood Gas 37.0 Temperature Blood Gas 30.0 Respiration Rate Blood Gas 30 Actual Respiration Rat e Blood Gas VENT - AC Modality FiO2 100.0 Blood Gas Tidal 500.0 Volume Blood Gas Low 5.0 PEEP Setting Blood Gas Jass BURROWS MD Critical Value Read Back Blood Gas [place] Notified Whom Blood Gas 08/21/2018 2:43 Notified Time :33 AM Lactic Acid 2.7 *H 2.4 *H Level White Blood 21.2 H Count Red Blood Count 4.41 L Hemoglobin 14.3 Hematocrit 43.4 Mean 98.4 Corpuscular Volume Mean 32.4 Corpuscular Hemoglobin Mean 32.9 Corpuscular Hemoglobin Conc ent Red Cell 12.9 Distribution Width Platelet Count 113 #L Mean Platelet 11.0 H Volume Immature 0.300 Granulocytes % Neutrophils % Segmented 81 H Neutrophils % (Manual) Band 11 H Neutrophils % (Manual) Lymphocytes % Lymphocytes % 6 L (Manual) Monocytes % Monocytes % 2 (Manual) Eosinophils % Basophils % Nucleated Red 0.0 Blood Cells % Immature 0.060 H Granulocytes # Neutrophils # Neutrophils # 17.7 H (Manual) Band 2.3 H Neutrophils # Lymphocytes 1.2 (Manual) Lymphocytes # Monocytes # Monocytes # 0.4 (Manual) Eosinophils # Basophils # Nucleated Red Blood Cells # Platelet DECREASED Estimate Giant Platelets 1 H Anisocytosis 1+ Microcytosis 1+ Prothrombin 28.9 H Time Prothrombin 2.3 Time Ratio INR 2.64 International Normalized Rati o Activated 37.4 H Partial Thrombo plast Time Thrombin Time 18.1 Fibrinogen 213.0 Plasma Fibrin >40 and <80 Degradation Pro H ducts D-Dimer > 33140.00 H Sodium Level 149 H Potassium Level 5.5 #H Chloride Level 120 H Carbon Dioxide 15 L Level Anion Gap 14 H Blood Urea 42 #H Nitrogen Creatinine 2.97 H Est Glomerular 25 L Filtrat Rate mL/min Glucose Level 182 Calcium Level 6.8 L Total Bilirubin 0.5 Direct 0.00 Bilirubin Indirect 0.5 Bilirubin Aspartate Amino > 7500 H Transf (AST/SGO T) Alanine 6218 H Aminotransferas e (ALT/SGPT) Alkaline 85 Phosphatase Creatine Kinase 77529 #H Creatine Kinase 0.9 Index Creatinine 782.00 H Kinase MB (Mass) Troponin I 2.680 *H Total Protein 5.9 L Albumin 3.3 Globulin 2.60 Albumin/Globuli 1.26 n Ratio Bedside Glucose 172 Test 08/21/18 07:00 08/21/18 07:20 08/21/18 09:05 08/21/18 10:00 Blood Gas Blood arterial Specimen Source Arterial Blood 08/21/2018 8:39 Date Drawn :15 AM Arterial Blood 7.124 *L pH (Temp corrected ) Arterial Blood 31.8 L pCO2 (Temp correct) Arterial Blood 425.4 H pO2 (Temp corrected ) Arterial Blood 10.2 L HCO3 Arterial Blood -17.9 L Base Excess Arterial Blood 99.1 H Oxygen Saturati on John Test ACCEPTAB Arterial Blood Right Radial Gas Puncture Site Arterial 0.3 Blood Carboxyhe moglobin Arterial Blood 1.0 Methemoglobin Blood Gas A-a 255.8 H O2 Differential Oxyhemoglobin 97.8 Percent Blood Gas 37.0 Temperature Blood Gas 30.0 Respiration Rate Blood Gas 30 Actual Respiration Rat e Blood Gas VENT - AC Modality FiO2 100.0 Blood Gas Tidal 500.0 Volume Blood Gas Low 5.0 PEEP Setting Blood Gas Juan Luis DUPONT RN Critical Value Read Back Blood Gas Maury Notified Whom Blood Gas 08/21/2018 8:55 Notified Time :51 AM Potassium Level 6.6 *H Bedside Glucose 195 275 H Test 08/21/18 12:08 08/21/18 12:13 08/21/18 13:10 08/21/18 14:00 Lactic Acid 5.2 *H Level Creatine Kinase Creatine Kinase 0.8 Index Creatinine > 800.00 H Kinase MB (Mass) Troponin I 2.530 *H Sodium Level 144 Potassium Level 5.5 H Chloride Level 116 H Carbon Dioxide 15 L Level Anion Gap 13 Blood Urea 52 H Nitrogen Creatinine 3.28 H Est Glomerular 22 L Filtrat Rate mL/min Glucose Level 269 H Calcium Level 6.1 L Bedside Glucose 237 H Blood Gas Blood Specimen arterial Source Arterial Blood 08/21/2018 2:5 Date Drawn 0:08 PM Arterial Blood 7.295 *L pH (Temp corrected ) Arterial Blood 37.4 pCO2 (Temp correct) Arterial Blood 87.4 pO2 (Temp corrected ) Arterial Blood 17.8 L HCO3 Arterial Blood -7.9 L Base Excess Arterial Blood 96.5 Oxygen Saturati on John Test ACCEPTAB Arterial Blood Right Radial Gas Puncture Site Arterial 0 Blood Carboxyhe moglobin Arterial Blood 0.2 Methemoglobin Blood Gas A-a 82.6 H O2 Differential Oxyhemoglobin 96.3 Percent Blood Gas 37.0 Temperature Blood Gas 30.0 Respiration Rate Blood Gas 30 Actual Respiration Rat e Blood Gas VENT - AC Modality FiO2 30.0 Blood Gas Tidal 500.0 Volume Blood Gas Low 5.0 PEEP Setting Blood Gas SEGUNDO MCKEON Critical Value EN RN Read Back Blood Gas Notified Whom Blood Gas 08/21/2018 3:0 Notified Time 4:19 PM Test 08/21/18 14:49 Bedside Glucose 184 YUMIKO JC MD Aug 21, 2018 15:20
[2018-08-21] MEDS ORDERED: HEPARIN 1000 UNITS/ML 10 ML INJ CATHETER SCH (16:00)
[2018-08-21] MEDS ORDERED: HEPARIN 5,000 UNIT/0.5 ML VIAL ONE ×2 (16:01→22:48)
[2018-08-21] MEDS ORDERED: GLUCAGON 1 MG INJ IM PRN (16:30)
[2018-08-21] MEDS ORDERED: GLUCOSE GEL 15 GRAM TUBE PO PRN ×2 (16:30)
[2018-08-21] MEDS ORDERED: GLUCOSE GEL 15 GRAM TUBE BUCCAL PRN (16:30)
[2018-08-21] MEDS: HEPARIN 5,000 UNIT/1 ML VIAL SC SCH ×2 (16:53→22:50)
--- NOTE | 2018-08-21 17:21 | CONS ---
DATE OF ADMISSION: 08/20/2018 DATE OF CONSULTATION: 08/21/2018 TYPE OF CONSULTATION: Infectious Disease. REASON FOR CONSULTATION: Antibiotic management. HISTORY OF PRESENT ILLNESS: Asad Ruvalcaba is a 33-year-old male who comes in with multiple p roblems and is being seen for antibiotic management. The patient is a 33-year-old male who presents to the emergency room for altered mental status. The patient was found unresponsive in a parking lot . He was hypoglycemic in the 30s and was given dextrose. He has pinpoint pupils, did not respond to 2 mg of Narcan. Nasal trumpet was inserted and the patient was brought to the emergency room. He c ontinued to be unresponsive and was noted to be grunting and decision was made in the emergency room to intubate the patient. A central line was also placed given his critical condition. On admission, his white count was 20.2, today 21.2, H and H of 14.3 and 43.4, platelet count of 113,000 with 81 po margaret and 11 neutrophils. He had 61 polys and 25 bands on 08/20/2018 and 81 polys and 11 bands on the 08/21/2018. His lactic acid was 5.2. His troponin was 2.68. His potassium is 6.6. BUN and creatin ine is 42 and 2.97. His AST was greater than 7500, ALT 6218 consistent with shock liver. His creati nine kinase was 88,413. His CK-MB was 782. As noted, his BUN and creatinine was 42/2.97. Urine was negative, 3+ glucose. Toxicology was positive for opiates and amphetamines. His serology was negat [place] for hepatitis B and C. Urine culture was negative. Chest x-ray: New right-sided central line i n place, NG tube in place, endotracheal tube in place, worsening bilateral upper lobe and bilateral l ower lobe infiltrates. Today, stable mid central pulmonary vascular congestion and mild interstitial prominence in both lungs. Endotracheal tube and nasogastric tube and central line are all in place, bilateral perihilar infiltrates, right greater than left. The patient is currently on vancomycin an d Zosyn. He is on norepinephrine. HOSPITAL COURSE: The patient was seen by Dr. Jamel Reyes who notes rhabdomyolysis with anuria, w ill need dialysis, has been on fluids in the ER without Response, Acute respiratory failure, intubat ed, lactic acidosis, acute renal failure, coagulopathy, DIC noted, shock on Levophed, polysubstance a buse, acute encephalopathy. The patient was seen by Dr. Boogie in pulmonary consultation. He checked ventilator settings. Chest x-ray shows right upper lobe infiltrates, mild pulmonary edema. He note d in assessment multiorgan failure due to severe sepsis with shock liver as well as acute renal failu re with severe metabolic acidosis, substance abuse, right upper lobe aspiration. The patient had emily al failure and acute septic shock, acute shock liver. DrJasmin cardiology noted drug use, possible overdose, multiorgan failure, possible septic shock, elevated troponins. He says elevation of tropon in is not indicative of occlusive coronary artery disease, likely demand mediated. Echo shows preser bessie ejection fraction. The patient was seen by Dr. Sommer who put in with right femoral hemodialy sis catheter and by Lg Palumbo hematology who noted relatively mild coagulopathy, but no frankly severe DIC. PHYSICAL EXAMINATION: GENERAL: The patient was essentially comatose. He has an ET tube, an NG tube, a central line and Fo quincy catheter. SKIN: Without generalized rash. HEENT: Pupils are equal, round, reactive to light. The patient has an ET tube in place. NECK: Supple. LYMPH NODES: None palpable. CHEST: Decreased breath sounds at the bases. HEART: Sinus tachycardia. ABDOMEN: Soft, nontender without organosplenomegaly or masses. EXTREMITIES: Without cyanosis, clubbing or edema. RECTAL AND GENITAL: Deferred. NEUROLOGIC: No focal neurological abnormality. IMPRESSION AND PLAN: The patient has polysubstance abuse. He now presents with septic shock with ac marissa rhabdomyolysis, acute renal failure, acute respiratory failure, lactic acidosis, shock liver and numerous other problems including disseminated intravascular coagulation. He also has a history of p revious alcohol abuse and now polysubstance abuse. I agree with the vancomycin and Zosyn that the pa tiemariah is on for bilateral infiltrates and pneumonitis, probably secondary to aspiration pneumonia. Aminta simms will continue these medications, his antibiotics and await cultures. I will dictate my findings to the hospitalist and to the aforementioned above consultants. Dictated By: ADAMS MERCEDES MD, JD/ZACK Conf#: [id number] DID#: [id number] CC: YUMIKO JC MD; QASIM BURROWS MD; SUNIL LY MD;*[facility]*
[2018-08-21] MEDS: VANCOMYCIN 1 GM 250 ML IVPB SCH (20:28)
[2018-08-21] MEDS ORDERED: FENTAnyl (DRIP) 1000 mcg/100mL 100 ML IV SCH (21:30)
[2018-08-22] VITALS (36 sets, daily range): BP systolic 104–157; BP diastolic 65–89; PULSE 100–130; RESP 14–30
[2018-08-22] MEDS: SOD CHLORIDE 0.9% 1,000 ML IV SCH ×4 (00:32→21:19)
[2018-08-22] MEDS: INSULIN ASPART [NOVOLOG] 3 ML PEN SC SCH ×6 (01:48→21:00)
[2018-08-22] MEDS: THIAMINE 200 MG INJ IM SCH (02:52)
[2018-08-22] MEDS ORDERED: HEPARIN 5,000 UNIT/0.5 ML VIAL ONE ×2 (05:02→13:48)
[2018-08-22] MEDS: PANTOPRAZOLE 40 MG INJ IV SCH ×2 (05:07→18:16)
[2018-08-22] MEDS: PIPER-TAZO 3.375 GM IV (PMX) 100 ML IVPB SCH ×3 (05:08→21:14)
[2018-08-22] MEDS: HEPARIN 5,000 UNIT/1 ML VIAL SC SCH ×3 (05:10→21:16)
[2018-08-22] MEDS: SODIUM BICARBONATE (IV ADD) 100 MEQ in DEXTROSE 5% 1,000 ML IV SCH (06:00)
[2018-08-22] MEDS ORDERED: POTASSIUM CHLORIDE 50 ML IVPB ONE (06:30)
[2018-08-22] MEDS ORDERED: CALCIUM GLUCONATE 10% 1 GM in DEXTROSE 5% 100 ML IVPB ONE (07:30)
--- NOTE | 2018-08-22 08:19 | CONS ---
Date/Time of Note Date/Time of Note DATE: 08/22/18 TIME: 08:12 Assessment/Plan Assessment/Plan Chief Complaint/Hosp Course History as per chart, as patient is sedated and intubated. Found down in a parking lot hypoglycemic , altered. sent EMS to ER, where was intubated and noted to have ARF, transaminitis, coagulopathy, (+) evidence for polysubstance abuse. Currently anuric Problems: (1) Hypocalcemia Comment: due to Rhabdo... corrected calcium around 7.. only 1 dose IV Ca++ now... need to be wary of hyperCa if/when recovers renal fxn.. the HCO3- was d/c'd (2) Edema Comment: due to fluid resuscitation + hypoalbumin... not to worry about it (3) Acute respiratory failure Status: Acute Comment: on vent, but low A-agradient as on only 30% FiO2 Qualifiers: Respiratory failure complication: unspecified whether with hypoxia or hypercapnia Qualified Codes: J96.00 - Acute respiratory failure, unspecified whether with hypoxia or hypercapnia (4) Acute renal failure Status: Acute Comment: anuric...s/p HD yest x 1...try Bumex today and see... no need for HD currently Qualifiers: Acute renal failure type: unspecified Qualified Codes: N17.9 - Acute kidney failure, unspecified (5) Coagulopathy Status: Acute Comment: sl better (6) Shock Status: Acute Comment: off pressors now (7) Rhabdomyolysis Comment: as noted... w anuric ARF s/p HD Consultation Date/Type/Reason Admit Date/Time Aug 20, 2018 at 21:39 Initial Consult Date Type of Consult Nephrology Requesting Provider: QASIM BURROWS 24 HR Interval Summary Free Text/Dictation remains anuric.. did tolerate HD yesterday... now OFf pressors after all the fluids+ other Rx Exam/Review of Systems Vital Signs Vitals Vital Signs Date Temp Pulse Resp B/P (MAP) Pulse Ox O2 O2 Flow FiO2 Time Delivery Rate 08/22/18 116 21 114/72 97 Mechanical 07:00 (86) Ventilator 08/22/18 30 05:26 08/22/18 98.2 04:00 Intake and Output 08/21/18 08/21/18 08/22/18 1515:00 23:00 07:00 IntakeIntake Total 2305.25 ml 2067.51 ml 1935.0 ml OutputOutput Total 80 ml 1010 ml 40 ml BalanceBalance 2225.25 ml 1057.51 ml 1895.0 ml Exam Constitutional: non-verbal (sedated on the vent) Head: normocephalic Neck: supple Respiratory: clear to auscultation Cardiovascular: regular rate and rhythm Gastrointestinal: soft Extremities: edema (1-2+) Medications Medications Current Medications Albuterol (Ventolin Hfa) 4 puff Q2H RESP THERAPY PRN INH SHORTNESS OF BREATH; Start 08/20/18 at 22:00 Ipratropium [place] (Atrovent Hfa) 4 puff Q2H RESP THERAPY PRN INH SHORTNESS OF BREATH; Start 08/20/18 at 22:00 Acetaminophen (Tylenol Liquid) 650 mg Q6H PRN PO PAIN LEVEL 1-3 OR FEVER; Start 08/20/18 at 22:00 Pantoprazole (Protonix Iv) 40 mg BID@0600,1800 IV Last administered on 08/22/18at 05:07; Admin Dose 40 MG; Start 08/20/18 at 22:00 Norepinephrine 16 mg/Dextrose 500 ml @ 1.88 mls/hr TITRATE IV Last admin istered on 08/21/18at 20:31; Admin Dose 9.38 MLS/HR; Start 08/21/18 at 00:00 Sodium Chloride 1,000 ml @ 150 mls/hr Q6H40M IV Last administered on 08/22/18at 06:57; Admin Dose 150 MLS/HR; Start 08/21/18 at 02:00 Vancomycin HCl (Vanco Iv Per Pharmacy) VANCOMYCIN PER PHARMACY PER PROTOCOL XX ; Start 08/21/18 at 00:00 Piperacillin Sod/ Tazobactam Sod 100 ml @ 200 mls/hr Q8 IVPB Last administered on 08/22/18at 05:08; Admin Dose 200 MLS/HR; Start 08/21/18 at 00:00 Insulin Aspart (Novolog Insulin Pen) NOVOLOG *MILD* ALGORI... Q4 SC Last administered on 08/22/18at 05:10; Admin Dose 1 UNIT; Start 08/21/18 at 01:00 Vancomycin HCl 250 ml @ 125 mls/hr Q24H IVPB Last administered on 08/21/18at 20:28; Admin Dose 125 MLS/HR; Start 08/21/18 at 20:00 Thiamine HCl (Vitamin B1) 300 mg DAILY@0300 IM Last administered on 08/22/18at 02:52; Admin Dose 300 MG; Start 08/21/18 at 03:00; Stop 08/24/18 at 02:59 Midazolam HCl 50 ml @ 3 mls/hr TITRATE IV Last administered on 08/21/18at 05:11; Admin Dose 4 MLS/HR; Start 08/21/18 at 04:00 Dextrose (D50w Syringe) ONCE PRN IV DECREASED GLUCOSE Last administered on 08/21/18at 09:09; Admin Dose 50 ML; Start 08/21/18 at 08:30; Stop 08/22/18 at 23:00 Influenza Virus Vaccine Quadrival (Fluzone) 0.5 ml ONCE ONCE IM* ; Start 08/24/18 at 10:00; Stop 08/24/18 at 10:01 Heparin Sodium (Porcine) (Heparin (5000 Units/1ml)) 5,000 unit Q8 SC Last adm inistered on 08/22/18at 05:10; Admin Dose 5,000 UNIT; Start 08/21/18 at 15:30 Miscellaneous Information 1 ea NOTE XX ; Start 08/21/18 at 16:30 Glucose (Glutose) 15 gm Q15M PRN PO DECREASED GLUCOSE; Start 08/21/18 at 16:30 Glucose (Glutose) 22.5 gm Q15M PRN PO DECREASED GLUCOSE; Start 08/21/18 at 16:30 Dextrose (D50w Syringe) 25 ml Q15M PRN IV DECREASED GLUCOSE; Start 08/21/18 at 16:30 Dextrose (D50w Syringe) 50 ml Q15M PRN IV DECREASED GLUCOSE; Start 08/21/18 at 16:30 Glucagon (Glucagen) 1 mg Q15M PRN IM DECREASED GLUCOSE; Start 08/21/18 at 16:30 Glucose (Glutose) 15 gm Q15M PRN BUCCAL DECREASED GLUCOSE; Start 08/21/18 at 16:30 Fentanyl 100 ml @ 2.5 mls/hr TITRATE IV Last administered on 08/21/18at 22:48; Admin Dose 7.5 MLS/HR; Start 08/21/18 at 21:30 Calcium Gluconate 1 gm/Dextrose 110 ml @ 110 mls/hr ONCE ONCE IVPB ; Start 08/22/18 at 07:30; Stop 08/22/18 at 08:29 Results Result Diagram: 08/22/18 0430 08/22/18 0430 Results 24 hrs Laboratory Tests Test 08/21/18 09:05 08/21/18 10:00 08/21/18 12:08 08/21/18 12:13 Bedside Glucose 195 275 H Lactic Acid 5.2 *H Level Creatine Kinase Creatine Kinase 0.8 Index Creatinine > 800.00 H Kinase MB (Mass) Troponin I 2.530 *H Sodium Level 144 Potassium Level 5.5 H Chloride Level 116 H Carbon Dioxide 15 L Level Anion Gap 13 Blood Urea 52 H Nitrogen Creatinine 3.28 H Est Glomerular 22 L Filtrat Rate mL/min Glucose Level 269 H Calcium Level 6.1 L Test 08/21/18 13:10 08/21/18 14:00 08/21/18 14:49 08/21/18 16:58 Bedside Glucose 237 H 184 136 Blood Gas Blood arterial Specimen Source Arterial Blood 08/21/2018 2:50 Date Drawn :08 PM Arterial Blood 7.295 *L pH (Temp corrected ) Arterial Blood 37.4 pCO2 (Temp correct) Arterial Blood 87.4 pO2 (Temp corrected ) Arterial Blood 17.8 L HCO3 Arterial Blood -7.9 L Base Excess Arterial Blood 96.5 Oxygen Saturati on John Test ACCEPTAB Arterial Blood Right Radial Gas Puncture Site Arterial 0 Blood Carboxyhe moglobin Arterial Blood 0.2 Methemoglobin Blood Gas A-a 82.6 H O2 Differential Oxyhemoglobin 96.3 Percent Blood Gas 37.0 Temperature Blood Gas 30.0 Respiration Rate Blood Gas 30 Actual Respiration Rat e Blood Gas VENT - AC Modality FiO2 30.0 Blood Gas Tidal 500.0 Volume Blood Gas Low 5.0 PEEP Setting Blood Gas SEGUNDO NUR Critical Value N RN Read Back Blood Gas Notified Whom Blood Gas 08/21/2018 3:04 Notified Time :19 PM Test 08/21/18 18:46 08/21/18 20:32 08/21/18 23:30 08/22/18 00:30 Lactic Acid 4.2 *H 4.1 *H Level Creatine Kinase 612685 H Creatine Kinase 0.3 Index Creatinine > 400.00 H Kinase MB (Mass) Troponin I 1.840 *H Bedside Glucose 154 Blood Gas Blood Specimen arterial Source Arterial Blood 08/21/2018 11: Date Drawn 40:51 PM Arterial Blood 7.449 pH (Temp corrected ) Arterial Blood 31.6 L pCO2 (Temp correct) Arterial Blood 96.4 pO2 (Temp corrected ) Arterial Blood 21.4 L HCO3 Arterial Blood -1.4 Base Excess Arterial Blood 97.4 Oxygen Saturati on John Test ACCEPTAB Arterial Blood Right Radial Gas Puncture Site Arterial 0.1 Blood Carboxyhe moglobin Arterial Blood 0.1 Methemoglobin Blood Gas A-a 80.4 H O2 Differential Oxyhemoglobin 97.2 Percent Blood Gas 37.0 Temperature Blood Gas 30.0 Respiration Rate Blood Gas 30 Actual Respiration Rat e Blood Gas VENT - AC Modality FiO2 30.0 Blood Gas Tidal 500.0 Volume Blood Gas Low 5.0 PEEP Setting Blood Gas MA Notified Whom Blood Gas 08/21/2018 11: Notified Time 57:58 PM Test 08/22/18 01:45 08/22/18 04:30 08/22/18 05:07 08/22/18 07:00 Bedside Glucose 155 149 White Blood 16.9 #H Count Red Blood Count 4.76 Hemoglobin 15.3 Hematocrit 44.4 Mean 93.3 Corpuscular Volume Mean 32.1 Corpuscular Hemoglobin Mean 34.5 Corpuscular Hemoglobin Conc ent Red Cell 13.0 Distribution Width Platelet Count 126 L Mean Platelet 11.1 H Volume Immature 1.100 H Granulocytes % Neutrophils % Segmented 47 Neutrophils % (Manual) Band 46 H Neutrophils % (Manual) Lymphocytes % Lymphocytes % 3 L (Manual) Reactive 2 H Lymphocytes % (Manual) Monocytes % Monocytes % 2 (Manual) Eosinophils % Basophils % Nucleated Red 0.1 H Blood Cells % Immature 0.190 H Granulocytes # Neutrophils # Neutrophils # 9.2 H (Manual) Band 7.7 H Neutrophils # Lymphocytes 0.5 L (Manual) Lymphocytes # Reactive 0.3 H Lymphocytes # Monocytes # Monocytes # 0.3 (Manual) Eosinophils # Basophils # Nucleated Red Blood Cells # Platelet DECREASED Estimate Prothrombin 27.2 H Time Prothrombin 2.1 Time Ratio INR 2.45 International Normalized Rati o Activated 38.5 H Partial Thrombo plast Time Thrombin Time 18.8 Fibrinogen 425.0 # Plasma Fibrin Pending Degradation Pro ducts D-Dimer > 58323.00 H Sodium Level 142 Potassium Level 3.2 #L Chloride Level 103 # Carbon Dioxide 28 # Level Anion Gap 11 Blood Urea 44 H Nitrogen Creatinine 3.70 H Est Glomerular 19 L Filtrat Rate mL/min Glucose Level 151 # Uric Acid 8.2 H Calcium Level 5.5 *L Phosphorus 6.0 H Level Total Bilirubin 1.0 Direct 0.00 Bilirubin Indirect 1.0 Bilirubin Aspartate Amino Pending Transf (AST/SGO T) Alanine Aminotransferas e (ALT/SGPT) Alkaline 73 Phosphatase Total Protein 4.4 #L Albumin 2.2 #L Globulin 2.20 Albumin/Globuli 1.00 n Ratio Blood Gas Blood Specimen arterial Source Arterial Blood 08/22/2018 7:0 Date Drawn 9:16 AM Arterial Blood 7.412 pH (Temp corrected ) Arterial Blood 39.1 pCO2 (Temp correct) Arterial Blood 101.7 H pO2 (Temp corrected ) Arterial Blood 24.3 HCO3 Arterial Blood -0.1 Base Excess Arterial Blood 97.3 Oxygen Saturati on John Test ACCEPTAB Arterial Blood Right Radial Gas Puncture Site Arterial 0.3 Blood Carboxyhe moglobin Arterial Blood 0.1 Methemoglobin Blood Gas A-a 66.3 H O2 Differential Oxyhemoglobin 96.9 Percent Blood Gas 37.0 Temperature Blood Gas 24.0 Respiration Rate Blood Gas 24 Actual Respiration Rat e Blood Gas VENT - AC Modality FiO2 30.0 Blood Gas Tidal 500.0 Volume Blood Gas Low 5.0 PEEP Setting Blood Gas TM Notified Whom Blood Gas 08/22/2018 7:2 Notified Time 1:49 AM SHAMAR PARKS MD Aug 22, 2018 08:19
[2018-08-22] MEDS ORDERED: FUROSEMIDE 40 MG INJ IV ONE (08:30)
[2018-08-22] MEDS: BUMETANIDE 25 MG in DEXTROSE 5% 150 ML IV SCH (10:07)
--- NOTE | 2018-08-22 10:53 | CONS ---
Date/Time of Note Date/Time of Note DATE: 08/22/18 TIME: 10:49 Consult Date/Type/Reason Admit Date/Time Aug 20, 2018 at 21:39 Initial Consult Date 08/21/18 Type of Consultation: Pulmonary ICU Requesting Provider: QASIM BURROWS Subjective Remains intubated on mechanical ventilation, opens eyes and follows simple commands. Objective Vital Signs Date Temp Pulse Resp B/P (MAP) Pulse Ox O2 O2 Flow FiO2 Time Delivery Rate 08/22/18 119 08:00 08/22/18 21 114/72 97 Mechanical 07:00 (86) Ventilator 08/22/18 30 05:26 08/22/18 98.2 04:00 Intake and Output 08/21/18 08/21/18 08/22/18 1414:59 22:59 06:59 IntakeIntake Total 2481.50 ml 2071.26 ml 2192.5 ml OutputOutput Total 85 ml 1015 ml 40 ml BalanceBalance 2396.50 ml 1056.26 ml 2152.5 ml Exam GENERAL: Well-nourished well-developed gentleman comfortable at rest no acute distress VITAL SIGNS: per chart NECK: Supple. No JVD or lymphadenopathy. CARDIAC EXAM: S1, S2. No added sounds or murmurs. CHEST: clear bilaterally, No added sounds, rales or wheezes ABDOMEN: Soft, nontender. No guarding or rebound. EXTREMITIES: No cyanosis, clubbing,, edema +2 NEUROLOGIC: Generalized weakness. No focal deficits. Results/Medications Result Diagram: 08/22/18 0430 08/22/18 0430 Results 24 hrs Laboratory Tests Test 08/21/18 12:08 08/21/18 12:13 08/21/18 13:10 08/21/18 14:00 Lactic Acid 5.2 *H Level Creatine Kinase Creatine Kinase 0.8 Index Creatinine > 800.00 H Kinase MB (Mass) Troponin I 2.530 *H Sodium Level 144 Potassium Level 5.5 H Chloride Level 116 H Carbon Dioxide 15 L Level Anion Gap 13 Blood Urea 52 H Nitrogen Creatinine 3.28 H Est Glomerular 22 L Filtrat Rate mL/min Glucose Level 269 H Calcium Level 6.1 L Bedside Glucose 237 H Blood Gas Blood Specimen arterial Source Arterial Blood 08/21/2018 2:5 Date Drawn 0:08 PM Arterial Blood 7.295 *L pH (Temp corrected ) Arterial Blood 37.4 pCO2 (Temp correct) Arterial Blood 87.4 pO2 (Temp corrected ) Arterial Blood 17.8 L HCO3 Arterial Blood -7.9 L Base Excess Arterial Blood 96.5 Oxygen Saturati on John Test ACCEPTAB Arterial Blood Right Radial Gas Puncture Site Arterial 0 Blood Carboxyhe moglobin Arterial Blood 0.2 Methemoglobin Blood Gas A-a 82.6 H O2 Differential Oxyhemoglobin 96.3 Percent Blood Gas 37.0 Temperature Blood Gas 30.0 Respiration Rate Blood Gas 30 Actual Respiration Rat e Blood Gas VENT - AC Modality FiO2 30.0 Blood Gas Tidal 500.0 Volume Blood Gas Low 5.0 PEEP Setting Blood Gas SEGUNDO MCKEON Critical Value EN RN Read Back Blood Gas Notified Whom Blood Gas 08/21/2018 3:0 Notified Time 4:19 PM Test 08/21/18 14:49 08/21/18 16:58 08/21/18 18:46 08/21/18 20:32 Bedside Glucose 184 136 154 Lactic Acid 4.2 *H Level Creatine Kinase 280790 H Creatine Kinase 0.3 Index Creatinine > 400.00 H Kinase MB (Mass) Troponin I 1.840 *H Test 08/21/18 23:30 08/22/18 00:30 08/22/18 01:45 08/22/18 04:30 Blood Gas Blood arterial Specimen Source Arterial Blood 08/21/2018 11:4 Date Drawn 0:51 PM Arterial Blood 7.449 pH (Temp corrected ) Arterial Blood 31.6 L pCO2 (Temp correct) Arterial Blood 96.4 pO2 (Temp corrected ) Arterial Blood 21.4 L HCO3 Arterial Blood -1.4 Base Excess Arterial Blood 97.4 Oxygen Saturati on John Test ACCEPTAB Arterial Blood Right Radial Gas Puncture Site Arterial 0.1 Blood Carboxyhe moglobin Arterial Blood 0.1 Methemoglobin Blood Gas A-a 80.4 H O2 Differential Oxyhemoglobin 97.2 Percent Blood Gas 37.0 Temperature Blood Gas 30.0 Respiration Rate Blood Gas 30 Actual Respiration Rat e Blood Gas VENT - AC Modality FiO2 30.0 Blood Gas Tidal 500.0 Volume Blood Gas Low 5.0 PEEP Setting Blood Gas MA Notified Whom Blood Gas 08/21/2018 11:5 Notified Time 7:58 PM Lactic Acid 4.1 *H Level Bedside Glucose 155 White Blood 16.9 #H Count Red Blood Count 4.76 Hemoglobin 15.3 Hematocrit 44.4 Mean 93.3 Corpuscular Volume Mean 32.1 Corpuscular Hemoglobin Mean 34.5 Corpuscular Hemoglobin Conc ent Red Cell 13.0 Distribution Width Platelet Count 126 L Mean Platelet 11.1 H Volume Immature 1.100 H Granulocytes % Neutrophils % Segmented 47 Neutrophils % (Manual) Band 46 H Neutrophils % (Manual) Lymphocytes % Lymphocytes % 3 L (Manual) Reactive 2 H Lymphocytes % (Manual) Monocytes % Monocytes % 2 (Manual) Eosinophils % Basophils % Nucleated Red 0.1 H Blood Cells % Immature 0.190 H Granulocytes # Neutrophils # Neutrophils # 9.2 H (Manual) Band 7.7 H Neutrophils # Lymphocytes 0.5 L (Manual) Lymphocytes # Reactive 0.3 H Lymphocytes # Monocytes # Monocytes # 0.3 (Manual) Eosinophils # Basophils # Nucleated Red Blood Cells # Platelet DECREASED Estimate Prothrombin 27.2 H Time Prothrombin 2.1 Time Ratio INR 2.45 International Normalized Rati o Activated 38.5 H Partial Thrombo plast Time Thrombin Time 18.8 Fibrinogen 425.0 # Plasma Fibrin >80 and <160 Degradation Pro H ducts D-Dimer > 80176.00 H Sodium Level 142 Potassium Level 3.2 #L Chloride Level 103 # Carbon Dioxide 28 # Level Anion Gap 11 Blood Urea 44 H Nitrogen Creatinine 3.70 H Est Glomerular 19 L Filtrat Rate mL/min Glucose Level 151 # Uric Acid 8.2 H Calcium Level 5.5 *L Phosphorus 6.0 H Level Total Bilirubin 1.0 Direct 0.00 Bilirubin Indirect 1.0 Bilirubin Aspartate Amino Pending Transf (AST/SGO T) Alanine Aminotransferas e (ALT/SGPT) Alkaline 73 Phosphatase Total Protein 4.4 #L Albumin 2.2 #L Globulin 2.20 Albumin/Globuli 1.00 n Ratio Test 08/22/18 05:07 08/22/18 07:00 08/22/18 08:47 Bedside Glucose 149 122 Blood Gas Blood Specimen arterial Source Arterial Blood 08/22/2018 7:0 Date Drawn 9:16 AM Arterial Blood 7.412 pH (Temp corrected ) Arterial Blood 39.1 pCO2 (Temp correct) Arterial Blood 101.7 H pO2 (Temp corrected ) Arterial Blood 24.3 HCO3 Arterial Blood -0.1 Base Excess Arterial Blood 97.3 Oxygen Saturati on John Test ACCEPTAB Arterial Blood Right Radial Gas Puncture Site Arterial 0.3 Blood Carboxyhe moglobin Arterial Blood 0.1 Methemoglobin Blood Gas A-a 66.3 H O2 Differential Oxyhemoglobin 96.9 Percent Blood Gas 37.0 Temperature Blood Gas 24.0 Respiration Rate Blood Gas 24 Actual Respiration Rat e Blood Gas VENT - AC Modality FiO2 30.0 Blood Gas Tidal 500.0 Volume Blood Gas Low 5.0 PEEP Setting Blood Gas TM Notified Whom Blood Gas 08/22/2018 7:2 Notified Time 1:49 AM Medications Current Medications Albuterol (Ventolin Hfa) 4 puff Q2H RESP THERAPY PRN INH SHORTNESS OF BREATH; Start 08/20/18 at 22:00 Ipratropium [place] (Atrovent Hfa) 4 puff Q2H RESP THERAPY PRN INH SHORTNESS OF BREATH; Start 08/20/18 at 22:00 Acetaminophen (Tylenol Liquid) 650 mg Q6H PRN PO PAIN LEVEL 1-3 OR FEVER; Start 08/20/18 at 22:00 Pantoprazole (Protonix Iv) 40 mg BID@0600,1800 IV Last administered on 08/22/18at 05:07; Admin Dose 40 MG; Start 08/20/18 at 22:00 Norepinephrine 16 mg/Dextrose 500 ml @ 1.88 mls/hr TITRATE IV Last administered on 08/21/18at 20:31; Admin Dose 9.38 MLS/HR; Start 08/21/18 at 00:00 Sodium Chloride 1,000 ml @ 150 mls/hr Q6H40M IV Last administered on 08/22/18at 06:57; Admin Dose 150 MLS/HR; Start 08/21/18 at 02:00 Vancomycin HCl (Vanco Iv Per Pharmacy) VANCOMYCIN PER PHARMACY PER PROTOCOL XX ; Start 08/21/18 at 00:00 Piperacillin Sod/ Tazobactam Sod 100 ml @ 200 mls/hr Q8 IVPB Last administered on 08/22/18at 05:08; Admin Dose 200 MLS/HR; Start 08/21/18 at 00:00 Insulin Aspart (Novolog Insulin Pen) NOVOLOG *MILD* ALGORI... Q4 SC Last administered on 08/22/18at 05:10; Admin Dose 1 UNIT; Start 08/21/18 at 01:00 Vancomycin HCl 250 ml @ 125 mls/hr Q24H IVPB Last administered on 08/21/18at 20:28; Admin Dose 125 MLS/HR; Start 08/21/18 at 20:00 Thiamine HCl (Vitamin B1) 300 mg DAILY@0300 IM Last administered on 08/22/18at 02:52; Admin Dose 300 MG; Start 08/21/18 at 03:00; Stop 08/24/18 at 02:59 Midazolam HCl 50 ml @ 3 mls/hr TITRATE IV Last administered on 08/21/18at 05:11; Admin Dose 4 MLS/HR; Start 08/21/18 at 04:00 Dextrose (D50w Syringe) ONCE PRN IV DECREASED GLUCOSE Last administered on 08/21/18at 09:09; Admin Dose 50 ML; Start 08/21/18 at 08:30; Stop 08/22/18 at 23:00 Influenza Virus Vaccine Quadrival (Fluzone) 0.5 ml ONCE ONCE IM* ; Start 08/24/18 at 10:00; Stop 08/24/18 at 10:01 Heparin Sodium (Porcine) (Heparin (5000 Units/1ml)) 5,000 unit Q8 SC Last administered on 08/22/18at 05:10; Admin Dose 5,000 UNIT; Start 08/21/18 at 15:30 Miscellaneous Information 1 ea NOTE XX ; Start 08/21/18 at 16:30 Glucose (Glutose) 15 gm Q15M PRN PO DECREASED GLUCOSE; Start 08/21/18 at 16:30 Glucose (Glutose) 22.5 gm Q15M PRN PO DECREASED GLUCOSE; Start 08/21/18 at 16:30 Dextrose (D50w Syringe) 25 ml Q15M PRN IV DECREASED GLUCOSE; Start 08/21/18 at 16:30 Dextrose (D50w Syringe) 50 ml Q15M PRN IV DECREASED GLUCOSE; Start 08/21/18 at 16:30 Glucagon (Glucagen) 1 mg Q15M PRN IM DECREASED GLUCOSE; Start 08/21/18 at 16:30 Glucose (Glutose) 15 gm Q15M PRN BUCCAL DECREASED GLUCOSE; Start 08/21/18 at 16:30 Fentanyl 100 ml @ 2.5 mls/hr TITRATE IV Last administered on 08/21/18at 22:48; Admin Dose 7.5 MLS/HR; Start 08/21/18 at 21:30 Bumetanide 25 mg/ Dextrose 250 ml @ 10 mls/hr Q24H IV Last administered on 08/22/18at 10:07; Admin Dose 10 MLS/HR; Start 08/22/18 at 08:30 Assessment/Plan Chief Complaint/Hosp Course Assessment 1. Acute renal failure secondary to rhabdomyolysis 2. History of substance abuse 3. Volume overload and pulmonary edema, possible RUL infiltrate. ? aspiration. 4. Resolved metabolic acidosis Plan 1. Continue renal recommendations hemodialysis if needed 2. CPAP trial if tolerated. 3. TF as tolerated. 4. Abx. cc 40 mins. LALO COLLINS MD, [facility] Aug 22, 2018 10:53
--- NOTE | 2018-08-22 11:24 | PN ---
Date/Time of Note Date/Time of Note DATE: 08/22/18 TIME: 11:05 Assessment/Plan VTE Prophylaxis Risk score (from Ns)>0 risk: 7 SCD applied (from Nsg): Yes Pharmacological prophylaxis: heparin Lines/Catheters IV Catheter Type (from [facility] Saurabh Urinary Cath still in place: Yes Reason Cath still needed: urinary retention Assessment/Plan Hospital Course S: Pressor support turned off yesterday. Still intubated, but patient awaiting possible CPAP trial later today. Still on Bumex as ordered again this morning IV. Also on normal saline IV fluids. Received dialysis yesterday. Appears to be following some commands today. O: VS - see below PE: Gen: Well developed young man in no acute distress. Eyes: Pinpoint pupils bilaterally HEENT: ET tube in place, moist mucous membranes, Card: Regular rate and rhythm no murmurs Pulm: Mechanical breath sounds bilaterally, no crackes. Abd: Soft, nondistended. Ext: No cyanosis/clubbing/edema Skin: Large fluid-filled bulla R medial thigh. : Suh in place with minimal urine output. Assessment/Plan: 33 yo man brought in found down with subsequent JULIAN secondary to rhabdomyolysis; positive for alcohol, methamphetamine, cannabis, opioids as well. #JULIAN- Oliguric renal failure with hyperkalemia (after potassium replacement), severe metabolic acidosis- Likely due to a combination of rhabdo and drug use. -Continue Bumex and Lasix per renal recommendations, also continue dialysis per renal. -Monitor BUN and creatinine levels and urine output. # acute ventilatory dependent respiratory failure-likely secondary to polysubstance overdose resulting in multiorgan dysfunction; patient had subsequent severe metabolic acidosis with inadequate respiratory compensation- CXR also with evidence of possible infiltrate or vascular congestion -For now continue Vanco/zosyn for possible community-acquired pneumonia. -Follow-up pulmonary recommendations, again for possible CPAP trial later today # Acute encephalopathy: - From polysubstance abuse. Currently sedated on Versed as well. -Monitor, again likely will turn off Versed today for possible CPAP trial # Elevated troponin-appears stable- CV Dr. Nj consulted. Likely demand ischemia from drug use. - Will not treat per NSTEMI protocol, follow-up cardiology recommendations # transaminitis: - May be from shock liver or drug use.- Hep B, Hep C negative. -Continue to monitor LFTs # Rhabdomyolysis: - Secondary to patient found down as well as polysubstance abuse -again Now requiring dialysis. -Monitor CK levels, continue aggressive IV fluid hydration with normal saline # Coagulopathy- May be due to liver and renal injury as well as drug use.- No DIC - Will watch closely. # polysubstance abuse: - Again patient was found to be positive for opioids, methamphetamine, marijuana and an elevated blood alcohol level. -Ordered for thiamine 300 mg IM daily times 3 days, further treatment as per the clinical course # DVT and GI prophylaxis: Heparin subQ, Protonix twice daily Social work consulted for next of kin; after very diligent search no one has been found yet. Critical care time spent on patient care today equals 50 minutes. Exam/Review of Systems Vital Signs Vitals Vital Signs Date Temp Pulse Resp B/P (MAP) Pulse Ox O2 O2 Flow FiO2 Time Delivery Rate 08/22/18 119 08:00 08/22/18 21 114/72 97 Mechanical 07:00 (86) Ventilator 08/22/18 30 05:26 08/22/18 98.2 04:00 Intake and Output 08/21/18 08/21/18 08/22/18 1515:00 23:00 07:00 IntakeIntake Total 2305.25 ml 2067.51 ml 1935.0 ml OutputOutput Total 80 ml 1010 ml 40 ml BalanceBalance 2225.25 ml 1057.51 ml 1895.0 ml Medications Medications Current Medications Albuterol (Ventolin Hfa) 4 puff Q2H RESP THERAPY PRN INH SHORTNESS OF BREATH; Start 08/20/18 at 22:00 Ipratropium [place] (Atrovent Hfa) 4 puff Q2H RESP THERAPY PRN INH SHORTNESS OF BREATH; Start 08/20/18 at 22:00 Acetaminophen (Tylenol Liquid) 650 mg Q6H PRN PO PAIN LEVEL 1-3 OR FEVER; Start 08/20/18 at 22:00 Pantoprazole (Protonix Iv) 40 mg BID@0600,1800 IV Last administered on 08/22/18at 05:07; Admin Dose 40 MG; Start 08/20/18 at 22:00 Norepinephrine 16 mg/Dextrose 500 ml @ 1.88 mls/hr TITRATE IV Last administered on 08/21/18at 20:31; Admin Dose 9.38 MLS/HR; Start 08/21/18 at 00:00 Sodium Chloride 1,000 ml @ 150 mls/hr Q6H40M IV Last administered on 08/06 03/23at 06:57; Admin Dose 150 MLS/HR; Start 08/21/18 at 02:00 Vancomycin HCl (Vanco Iv Per Pharmacy) VANCOMYCIN PER PHARMACY PER PROTOCOL XX ; Start 08/21/18 at 00:00 Piperacillin Sod/ Tazobactam Sod 100 ml @ 200 mls/hr Q8 IVPB Last administered on 08/22/18at 05:08; Admin Dose 200 MLS/HR; Start 08/21/18 at 00:00 Insulin Aspart (Novolog Insulin Pen) NOVOLOG *MILD* ALGORI... Q4 SC Last administered on 08/22/18at 05:10; Admin Dose 1 UNIT; Start 08/21/18 at 01:00 Vancomycin HCl 250 ml @ 125 mls/hr Q24H IVPB Last administered on 08/21/18at 20:28; Admin Dose 125 MLS/HR; Start 08/21/18 at 20:00 Thiamine HCl (Vitamin B1) 300 mg DAILY@0300 IM Last administered on 08/22/18at 02:52; Admin Dose 300 MG; Start 08/21/18 at 03:00; Stop 08/24/18 at 02:59 Midazolam HCl 50 ml @ 3 mls/hr TITRATE IV Last administered on 08/21/18at 05:11; Admin Dose 4 MLS/HR; Start 08/21/18 at 04:00 Dextrose (D50w Syringe) ONCE PRN IV DECREASED GLUCOSE Last administered on 08/21/18at 09:09; Admin Dose 50 ML; Start 08/21/18 at 08:30; Stop 08/22/18 at 23:00 Influenza Virus Vaccine Quadrival (Fluzone) 0.5 ml ONCE ONCE IM* ; Start 08/24/18 at 10:00; Stop 08/24/18 at 10:01 Heparin Sodium (Porcine) (Heparin (5000 Units/1ml)) 5,000 unit Q8 SC Last administered on 08/22/18at 05:10; Admin Dose 5,000 UNIT; Start 08/21/18 at 15:30 Miscellaneous Information 1 ea NOTE XX ; Start 08/21/18 at 16:30 Glucose (Glutose) 15 gm Q15M PRN PO DECREASED GLUCOSE; Start 08/21/18 at 16:30 Glucose (Glutose) 22.5 gm Q15M PRN PO DECREASED GLUCOSE; Start 08/21/18 at 16:30 Dextrose (D50w Syringe) 25 ml Q15M PRN IV DECREASED GLUCOSE; Start 08/21/18 at 16:30 Dextrose (D50w Syringe) 50 ml Q15M PRN IV DECREASED GLUCOSE; Start 08/21/18 at 16:30 Glucagon (Glucagen) 1 mg Q15M PRN IM DECREASED GLUCOSE; Start 08/21/18 at 16:30 Glucose (Glutose) 15 gm Q15M PRN BUCCAL DECREASED GLUCOSE; Start 08/21/18 at 16:30 Fentanyl 100 ml @ 2.5 mls/hr TITRATE IV Last administered on 08/21/18at 22:48; Admin Dose 7.5 MLS/HR; Start 08/21/18 at 21:30 Bumetanide 25 mg/ Dextrose 250 ml @ 10 mls/hr Q24H IV Last administered on 08/22/18at 10:07; Admin Dose 10 MLS/HR; Start 08/22/18 at 08:30 Results Result Diagram: 08/22/18 0430 08/22/18 0430 Results 24 hrs Laboratory Tests Test 08/21/18 12:08 08/21/18 12:13 08/21/18 13:10 08/21/18 14:00 Lactic Acid 5.2 *H Level Creatine Kinase Creatine Kinase 0.8 Index Creatinine > 800.00 H Kinase MB (Mass) Troponin I 2.530 *H Sodium Level 144 Potassium Level 5.5 H Chloride Level 116 H Carbon Dioxide 15 L Level Anion Gap 13 Blood Urea 52 H Nitrogen Creatinine 3.28 H Est Glomerular 22 L Filtrat Rate mL/min Glucose Level 269 H Calcium Level 6.1 L Bedside Glucose 237 H Blood Gas Blood Specimen arterial Source Arterial Blood 08/21/2018 2:5 Date Drawn 0:08 PM Arterial Blood 7.295 *L pH (Temp corrected ) Arterial Blood 37.4 pCO2 (Temp correct) Arterial Blood 87.4 pO2 (Temp corrected ) Arterial Blood 17.8 L HCO3 Arterial Blood -7.9 L Base Excess Arterial Blood 96.5 Oxygen Saturati on John Test ACCEPTAB Arterial Blood Right Radial Gas Puncture Site Arterial 0 Blood Carboxyhe moglobin Arterial Blood 0.2 Methemoglobin Blood Gas A-a 82.6 H O2 Differential Oxyhemoglobin 96.3 Percent Blood Gas 37.0 Temperature Blood Gas 30.0 Respiration Rate Blood Gas 30 Actual Respiration Rat e Blood Gas VENT - AC Modality FiO2 30.0 Blood Gas Tidal 500.0 Volume Blood Gas Low 5.0 PEEP Setting Blood Gas SEGUNDO MCKEON Critical Value EN RN Read Back Blood Gas Notified Whom Blood Gas 08/21/2018 3:0 Notified Time 4:19 PM Test 08/21/18 14:49 08/21/18 16:58 08/21/18 18:46 08/21/18 20:32 Bedside Glucose 184 136 154 Lactic Acid 4.2 *H Level Creatine Kinase 233561 H Creatine Kinase 0.3 Index Creatinine > 400.00 H Kinase MB (Mass) Troponin I 1.840 *H Test 08/21/18 23:30 08/22/18 00:30 08/22/18 01:45 08/22/18 04:30 Blood Gas Blood arterial Specimen Source Arterial Blood 08/21/2018 11:4 Date Drawn 0:51 PM Arterial Blood 7.449 pH (Temp corrected ) Arterial Blood 31.6 L pCO2 (Temp correct) Arterial Blood 96.4 pO2 (Temp corrected ) Arterial Blood 21.4 L HCO3 Arterial Blood -1.4 Base Excess Arterial Blood 97.4 Oxygen Saturati on John Test ACCEPTAB Arterial Blood Right Radial Gas Puncture Site Arterial 0.1 Blood Carboxyhe moglobin Arterial Blood 0.1 Methemoglobin Blood Gas A-a 80.4 H O2 Differential Oxyhemoglobin 97.2 Percent Blood Gas 37.0 Temperature Blood Gas 30.0 Respiration Rate Blood Gas 30 Actual Respiration Rat e Blood Gas VENT - AC Modality FiO2 30.0 Blood Gas Tidal 500.0 Volume Blood Gas Low 5.0 PEEP Setting Blood Gas MA Notified Whom Blood Gas 08/21/2018 11:5 Notified Time 7:58 PM Lactic Acid 4.1 *H Level Bedside Glucose 155 White Blood 16.9 #H Count Red Blood Count 4.76 Hemoglobin 15.3 Hematocrit 44.4 Mean 93.3 Corpuscular Volume Mean 32.1 Corpuscular Hemoglobin Mean 34.5 Corpuscular Hemoglobin Conc ent Red Cell 13.0 Distribution Width Platelet Count 126 L Mean Platelet 11.1 H Volume Immature 1.100 H Granulocytes % Neutrophils % Segmented 47 Neutrophils % (Manual) Band 46 H Neutrophils % (Manual) Lymphocytes % Lymphocytes % 3 L (Manual) Reactive 2 H Lymphocytes % (Manual) Monocytes % Monocytes % 2 (Manual) Eosinophils % Basophils % Nucleated Red 0.1 H Blood Cells % Immature 0.190 H Granulocytes # Neutrophils # Neutrophils # 9.2 H (Manual) Band 7.7 H Neutrophils # Lymphocytes 0.5 L (Manual) Lymphocytes # Reactive 0.3 H Lymphocytes # Monocytes # Monocytes # 0.3 (Manual) Eosinophils # Basophils # Nucleated Red Blood Cells # Platelet DECREASED Estimate Prothrombin 27.2 H Time Prothrombin 2.1 Time Ratio INR 2.45 International Normalized Rati o Activated 38.5 H Partial Thrombo plast Time Thrombin Time 18.8 Fibrinogen 425.0 # Plasma Fibrin >80 and <160 Degradation Pro H ducts D-Dimer > 55469.00 H Sodium Level 142 Potassium Level 3.2 #L Chloride Level 103 # Carbon Dioxide 28 # Level Anion Gap 11 Blood Urea 44 H Nitrogen Creatinine 3.70 H Est Glomerular 19 L Filtrat Rate mL/min Glucose Level 151 # Uric Acid 8.2 H Calcium Level 5.5 *L Phosphorus 6.0 H Level Total Bilirubin 1.0 Direct 0.00 Bilirubin Indirect 1.0 Bilirubin Aspartate Amino 6708 H Transf (AST/SGO T) Alanine Aminotransferas e (ALT/SGPT) Alkaline 73 Phosphatase Total Protein 4.4 #L Albumin 2.2 #L Globulin 2.20 Albumin/Globuli 1.00 n Ratio Test 08/22/18 05:07 08/22/18 07:00 08/22/18 08:47 Bedside Glucose 149 122 Blood Gas Blood Specimen arterial Source Arterial Blood 08/22/2018 7:0 Date Drawn 9:16 AM Arterial Blood 7.412 pH (Temp corrected ) Arterial Blood 39.1 pCO2 (Temp correct) Arterial Blood 101.7 H pO2 (Temp corrected ) Arterial Blood 24.3 HCO3 Arterial Blood -0.1 Base Excess Arterial Blood 97.3 Oxygen Saturati on John Test ACCEPTAB Arterial Blood Right Radial Gas Puncture Site Arterial 0.3 Blood Carboxyhe moglobin Arterial Blood 0.1 Methemoglobin Blood Gas A-a 66.3 H O2 Differential Oxyhemoglobin 96.9 Percent Blood Gas 37.0 Temperature Blood Gas 24.0 Respiration Rate Blood Gas 24 Actual Respiration Rat e Blood Gas VENT - AC Modality FiO2 30.0 Blood Gas Tidal 500.0 Volume Blood Gas Low 5.0 PEEP Setting Blood Gas TM Notified Whom Blood Gas 08/22/2018 7:2 Notified Time 1:49 AM CINTIA ESPINOSA Aug 22, 2018 11:15
--- NOTE | 2018-08-22 11:35 | CONS ---
Date/Time of Note Date/Time of Note DATE: 08/22/18 TIME: 11:32 Assessment/Plan Assessment/Plan Additional Assessment/Plan Acute respiratory failure Low normal left ventricular ejection fraction 50% Sepsis Acute kidney injury Myocardial infarction, likely type II Liver dysfunction Illicit drug use -Troponins elevated and trending down, likely secondary to demand ischemia. Aspirin therapy if no contraindication. No statin given abnormal LFTs. If blood pressure tolerates, would consider starting beta-kishan. Consultation Date/Type/Reason Admit Date/Time Aug 20, 2018 at 21:39 Initial Consult Date 08/21/18 Type of Consult cv Requesting Provider: QASIM BURROWS 24 HR Interval Summary Free Text/Dictation Patient seen and examined. No new cardiac issues as per nursing staff Exam/Review of Systems Vital Signs Vitals Vital Signs Date Temp Pulse Resp B/P (MAP) Pulse Ox O2 O2 Flow FiO2 Time Delivery Rate 08/22/18 119 08:00 08/22/18 21 114/72 97 Mechanical 07:00 (86) Ventilator 08/22/18 30 05:26 08/22/18 98.2 04:00 Intake and Output 08/21/18 08/21/18 08/22/18 1515:00 23:00 07:00 IntakeIntake Total 2305.25 ml 2067.51 ml 1935.0 ml OutputOutput Total 80 ml 1010 ml 40 ml BalanceBalance 2225.25 ml 1057.51 ml 1895.0 ml Exam Sedated and intubated, no apparent distress Head: normocephalic ENMT: intubated Respiratory: other (Coarse breath sounds bilaterally, no wheezing) Cardiovascular: regular rate and rhythm, other (S1-S2 heard) Gastrointestinal: soft, bowel sounds Extremities: other (No significant edema) Medications Medications Current Medications Albuterol (Ventolin Hfa) 4 puff Q2H RESP THERAPY PRN INH SHORTNESS OF BREATH; Start 08/20/18 at 22:00 Ipratropium [place] (Atrovent Hfa) 4 puff Q2H RESP THERAPY PRN INH SHORTNESS OF BREATH; Start 08/20/18 at 22:00 Acetaminophen (Tylenol Liquid) 650 mg Q6H PRN PO PAIN LEVEL 1-3 OR FEVER; Start 08/20/18 at 22:00 Pantoprazole (Protonix Iv) 40 mg BID@0600,1800 IV Last administered on 12/17/18at 05:07; Admin Dose 40 MG; Start 08/20/18 at 22:00 Norepinephrine 16 mg/Dextrose 500 ml @ 1.88 mls/hr TITRATE IV Last administered on 08/21/18at 20:31; Admin Dose 9.38 MLS/HR; Start 08/21/18 at 00:00 Sodium Chloride 1,000 ml @ 150 mls/hr Q6H40M IV Last administered on 08/22/18at 06:57; Admin Dose 150 MLS/HR; Start 08/21/18 at 02:00 Vancomycin HCl (Vanco Iv Per Pharmacy) VANCOMYCIN PER PHARMACY PER PROTOCOL XX ; Start 08/21/18 at 00:00 Piperacillin Sod/ Tazobactam Sod 100 ml @ 200 mls/hr Q8 IVPB Last administered on 08/22/18at 05:08; Admin Dose 200 MLS/HR; Start 08/21/18 at 00:00 Insulin Aspart (Novolog Insulin Pen) NOVOLOG *MILD* ALGORI... Q4 SC Last administered on 08/22/18at 05:10; Admin Dose 1 UNIT; Start 08/21/18 at 01:00 Vancomycin HCl 250 ml @ 125 mls/hr Q24H IVPB Last administered on 08/21/18at 20:28; Admin Dose 125 MLS/HR; Start 08/21/18 at 20:00 Thiamine HCl (Vitamin B1) 300 mg DAILY@0300 IM Last administered on 08/22/18at 02:52; Admin Dose 300 MG; Start 08/21/18 at 03:00; Stop 08/24/18 at 02:59 Midazolam HCl 50 ml @ 3 mls/hr TITRATE IV Last administered on 08/21/18at 05:11; Admin Dose 4 MLS/HR; Start 08/21/18 at 04:00 Dextrose (D50w Syringe) ONCE PRN IV DECREASED GLUCOSE Last administered on 08/21/18at 09:09; Admin Dose 50 ML; Start 08/21/18 at 08:30; Stop 08/22/18 at 23:00 Influenza Virus Vaccine Quadrival (Fluzone) 0.5 ml ONCE ONCE IM* ; Start 08/24/18 at 10:00; Stop 08/24/18 at 10:01 Heparin Sodium (Porcine) (Heparin (5000 Units/1ml)) 5,000 unit Q8 SC Last administered on 08/22/18at 05:10; Admin Dose 5,000 UNIT; Start 08/21/18 at 15:30 Miscellaneous Information 1 ea NOTE XX ; Start 08/21/18 at 16:30 Glucose (Glutose) 15 gm Q15M PRN PO DECREASED GLUCOSE; Start 08/21/18 at 16:30 Glucose (Glutose) 22.5 gm Q15M PRN PO DECREASED GLUCOSE; Start 08/21/18 at 16:30 Dextrose (D50w Syringe) 25 ml Q15M PRN IV DECREASED GLUCOSE; Start 08/21/18 at 16:30 Dextrose (D50w Syringe) 50 ml Q15M PRN IV DECREASED GLUCOSE; Start 08/21/18 at 16:30 Glucagon (Glucagen) 1 mg Q15M PRN IM DECREASED GLUCOSE; Start 08/21/18 at 16 :30 Glucose (Glutose) 15 gm Q15M PRN BUCCAL DECREASED GLUCOSE; Start 08/21/18 at 16:30 Fentanyl 100 ml @ 2.5 mls/hr TITRATE IV Last administered on 08/21/18at 22:48; Admin Dose 7.5 MLS/HR; Start 08/21/18 at 21:30 Bumetanide 25 mg/ Dextrose 250 ml @ 10 mls/hr Q24H IV Last administered on 08/22/18at 10:07; Admin Dose 10 MLS/HR; Start 08/22/18 at 08:30 Results Result Diagram: 08/22/18 0430 08/22/18 0430 Results 24 hrs Laboratory Tests Test 08/21/18 12:08 08/21/18 12:13 08/21/18 13:10 08/21/18 14:00 Lactic Acid 5.2 *H Level Creatine Kinase Creatine Kinase 0.8 Index Creatinine > 800.00 H Kinase MB (Mass) Troponin I 2.530 *H Sodium Level 144 Potassium Level 5.5 H Chloride Level 116 H Carbon Dioxide 15 L Level Anion Gap 13 Blood Urea 52 H Nitrogen Creatinine 3.28 H Est Glomerular 22 L Filtrat Rate mL/min Glucose Level 269 H Calcium Level 6.1 L Bedside Glucose 237 H Blood Gas Blood Specimen arterial Source Arterial Blood 08/21/2018 2:5 Date Drawn 0:08 PM Arterial Blood 7.295 *L pH (Temp corrected ) Arterial Blood 37.4 pCO2 (Temp correct) Arterial Blood 87.4 pO2 (Temp corrected ) Arterial Blood 17.8 L HCO3 Arterial Blood -7.9 L Base Excess Arterial Blood 96.5 Oxygen Saturati on John Test ACCEPTAB Arterial Blood Right Radial Gas Puncture Site Arterial 0 Blood Carboxyhe moglobin Arterial Blood 0.2 Methemoglobin Blood Gas A-a 82.6 H O2 Differential Oxyhemoglobin 96.3 Percent Blood Gas 37.0 Temperature Blood Gas 30.0 Respiration Rate Blood Gas 30 Actual Respiration Rat e Blood Gas VENT - AC Modality FiO2 30.0 Blood Gas Tidal 500.0 Volume Blood Gas Low 5.0 PEEP Setting Blood Gas SEGUNDO MCKEON Critical Value EN RN Read Back Blood Gas Notified Whom Blood Gas 08/21/2018 3:0 Notified Time 4:19 PM Test 08/21/18 14:49 08/21/18 16:58 08/21/18 18:46 08/21/18 20:32 Bedside Glucose 184 136 154 Lactic Acid 4.2 *H Level Creatine Kinase 748554 H Creatine Kinase 0.3 Index Creatinine > 400.00 H Kinase MB (Mass) Troponin I 1.840 *H Test 08/21/18 23:30 08/22/18 00:30 08/22/18 01:45 08/22/18 04:30 Blood Gas Blood arterial Specimen Source Arterial Blood 08/21/2018 11:4 Date Drawn 0:51 PM Arterial Blood 7.449 pH (Temp corrected ) Arterial Blood 31.6 L pCO2 (Temp correct) Arterial Blood 96.4 pO2 (Temp corrected ) Arterial Blood 21.4 L HCO3 Arterial Blood -1.4 Base Excess Arterial Blood 97.4 Oxygen Saturati on John Test ACCEPTAB Arterial Blood Right Radial Gas Puncture Site Arterial 0.1 Blood Carboxyhe moglobin Arterial Blood 0.1 Methemoglobin Blood Gas A-a 80.4 H O2 Differential Oxyhemoglobin 97.2 Percent Blood Gas 37.0 Temperature Blood Gas 30.0 Respiration Rate Blood Gas 30 Actual Respiration Rat e Blood Gas VENT - AC Modality FiO2 30.0 Blood Gas Tidal 500.0 Volume Blood Gas Low 5.0 PEEP Setting Blood Gas MA Notified Whom Blood Gas 08/21/2018 11:5 Notified Time 7:58 PM Lactic Acid 4.1 *H Level Bedside Glucose 155 White Blood 16.9 #H Count Red Blood Count 4.76 Hemoglobin 15.3 Hematocrit 44.4 Mean 93.3 Corpuscular Volume Mean 32.1 Corpuscular Hemoglobin Mean 34.5 Corpuscular Hemoglobin Conc ent Red Cell 13.0 Distribution Width Platelet Count 126 L Mean Platelet 11.1 H Volume Immature 1.100 H Granulocytes % Neutrophils % Segmented 47 Neutrophils % (Manual) Band 46 H Neutrophils % (Manual) Lymphocytes % Lymphocytes % 3 L (Manual) Reactive 2 H Lymphocytes % (Manual) Monocytes % Monocytes % 2 (Manual) Eosinophils % Basophils % Nucleated Red 0.1 H Blood Cells % Immature 0.190 H Granulocytes # Neutrophils # Neutrophils # 9.2 H (Manual) Band 7.7 H Neutrophils # Lymphocytes 0.5 L (Manual) Lymphocytes # Reactive 0.3 H Lymphocytes # Monocytes # Monocytes # 0.3 (Manual) Eosinophils # Basophils # Nucleated Red Blood Cells # Platelet DECREASED Estimate Prothrombin 27.2 H Time Prothrombin 2.1 Time Ratio INR 2.45 International Normalized Rati o Activated 38.5 H Partial Thrombo plast Time Thrombin Time 18.8 Fibrinogen 425.0 # Plasma Fibrin >80 and <160 Degradation Pro H ducts D-Dimer > 06306.00 H Sodium Level 142 Potassium Level 3.2 #L Chloride Level 103 # Carbon Dioxide 28 # Level Anion Gap 11 Blood Urea 44 H Nitrogen Creatinine 3.70 H Est Glomerular 19 L Filtrat Rate mL/min Glucose Level 151 # Uric Acid 8.2 H Calcium Level 5.5 *L Phosphorus 6.0 H Level Total Bilirubin 1.0 Direct 0.00 Bilirubin Indirect 1.0 Bilirubin Aspartate Amino 6708 H Transf (AST/SGO T) Alanine Aminotransferas e (ALT/SGPT) Alkaline 73 Phosphatase Total Protein 4.4 #L Albumin 2.2 #L Globulin 2.20 Albumin/Globuli 1.00 n Ratio Test 08/22/18 05:07 08/22/18 07:00 08/22/18 08:47 Bedside Glucose 149 122 Blood Gas Blood Specimen arterial Source Arterial Blood 08/22/2018 7:0 Date Drawn 9:16 AM Arterial Blood 7.412 pH (Temp corrected ) Arterial Blood 39.1 pCO2 (Temp correct) Arterial Blood 101.7 H pO2 (Temp corrected ) Arterial Blood 24.3 HCO3 Arterial Blood -0.1 Base Excess Arterial Blood 97.3 Oxygen Saturati on John Test ACCEPTAB Arterial Blood Right Radial Gas Puncture Site Arterial 0.3 Blood Carboxyhe moglobin Arterial Blood 0.1 Methemoglobin Blood Gas A-a 66.3 H O2 Differential Oxyhemoglobin 96.9 Percent Blood Gas 37.0 Temperature Blood Gas 24.0 Respiration Rate Blood Gas 24 Actual Respiration Rat e Blood Gas VENT - AC Modality FiO2 30.0 Blood Gas Tidal 500.0 Volume Blood Gas Low 5.0 PEEP Setting Blood Gas TM Notified Whom Blood Gas 08/22/2018 7:2 Notified Time 1:49 AM Kana Phoenix DO Aug 22, 2018 11:35
--- NOTE | 2018-08-22 14:58 | CONS ---
Date/Time of Note Date/Time of Note DATE: 08/22/18 TIME: 14:56 Assessment/Plan Assessment/Plan Chief Complaint/Hosp Course No acute events overnight patient remains intubated he is off sedation off pressors more responsive per report Temperature 98.4 pulse 116 respirations 22 blood pressure 119/78 saturation 96 on 30 FiO2 WBC 16.9 H&H 15.3 and 44.4 platelets 126 bands 46 BUN 44 creatinine 3.70 Indwelling: Endotracheal tube NG tube Suh right IJ triple-lumen catheter, right femoral Saurabh Antimicrobials: Vancomycin, Zosyn Microbiology: All cultures negative since admission, sputum culture pending Diagnostics: Chest x-ray yesterday revealed stable perihilar infiltrates in both lungs right greater than left Physical examination: Well-nourished well-developed middle-aged man who is in no distress. Head atraumatic normocephalic sclera nonicteric. Neck is supple chest rise symmetrical breath sounds diminished bases. Heart: S1-S2, tachycardic. Abdomen soft bowel sounds present. Extremities with bilateral edema Assessment: 1. Severe sepsis status post shock 2. Acute encephalopathy 3. Acute hypoxemic respiratory failure 4. Pneumonia possibly aspirated 5. Pulmonary edema 6. Acute renal failure, on hemodialysis 7. Transaminitis, possibly shock liver 8. Polysubstance abuse Plan: Patient is doing better, continue on present antibiotics, await for sputum cultures, weaning trials per pulmonary, liver ultrasound Consultation Date/Type/Reason Admit Date/Time Aug 20, 2018 at 21:39 Initial Consult Date 08/21/18 Type of Consult id Requesting Provider: QASIM BURROWS Exam/Review of Systems Vital Signs Vitals Vital Signs Date Temp Pulse Resp B/P (MAP) Pulse Ox O2 O2 Flow FiO2 Time Delivery Rate 08/22/18 119 12:00 08/22/18 22 100 30 11:29 08/22/18 119/78 Mechanical 11:00 (92) Ventilator 08/22/18 98.4 08:00 Intake and Output 08/21/18 08/21/18 08/22/18 1515:00 23:00 07:00 IntakeIntake Total 2305.25 ml 2067.51 ml 2085.0 ml OutputOutput Total 80 ml 1010 ml 40 ml BalanceBalance 2225.25 ml 1057.51 ml 2045.0 ml Medications Medications Current Medications Albuterol (Ventolin Hfa) 4 puff Q2H RESP THERAPY PRN INH SHORTNESS OF BREATH; Start 08/20/18 at 22:00 Ipratropium [place] (Atrovent Hfa) 4 puff Q2H RESP THERAPY PRN INH SHORTNESS OF BREATH; Start 08/20/18 at 22:00 Acetaminophen (Tylenol Liquid) 650 mg Q6H PRN PO PAIN LEVEL 1-3 OR FEVER; Start 08/20/18 at 22:00 Pantoprazole (Protonix Iv) 40 mg BID@0600,1800 IV Last administered on 08/22/18at 05:07; Admin Dose 40 MG; Start 08/20/18 at 22:00 Norepinephrine 16 mg/Dextrose 500 ml @ 1.88 mls/hr TITRATE IV Last administered on 08/21/18at 20:31; Admin Dose 9.38 MLS/HR; Start 08/21/18 at 00:00 Sodium Chloride 1,000 ml @ 150 mls/hr Q6H40M IV Last administered on 08/22/18at 13:46; Admin Dose 150 MLS/HR; Start 08/21/18 at 02:00 Vancomycin HCl (Vanco Iv Per Pharmacy) VANCOMYCIN PER PHARMACY PER PROTOCOL XX ; Start 08/21/18 at 00:00 Piperacillin Sod/ Tazobactam Sod 100 ml @ 200 mls/hr Q8 IVPB Last administered on 08/22/18at 13:51; Admin Dose 200 MLS/HR; Start 08/21/18 at 00:00 Insulin Aspart (Novolog Insulin Pen) NOVOLOG *MILD* ALGORI... Q4 SC Last administered on 08/22/18at 05:10; Admin Dose 1 UNIT; Start 08/21/18 at 01:00 Vancomycin HCl 250 ml @ 125 mls/hr Q24H IVPB Last administered on 08/21/18at 20:28; Admin Dose 125 MLS/HR; Start 08/21/18 at 20:00 Thiamine HCl (Vitamin B1) 300 mg DAILY@0300 IM Last administered on 08/22/18at 02:52; Admin Dose 300 MG; Start 08/21/18 at 03:00; Stop 08/24/18 at 02:59 Midazolam HCl 50 ml @ 3 mls/hr TITRATE IV Last administered on 08/21/18at 05:11; Admin Dose 4 MLS/HR; Start 08/21/18 at 04:00 Dextrose (D50w Syringe) ONCE PRN IV DECREASED GLUCOSE Last administered on 08/21/18at 09:09; Admin Dose 50 ML; Start 08/21/18 at 08:30; Stop 08/22/18 at 23:00 Influenza Virus Vaccine Quadrival (Fluzone) 0.5 ml ONCE ONCE IM* ; Start 08/24/18 at 10:00; Stop 08/24/18 at 10:01 Heparin Sodium (Porcine) (Heparin (5000 Units/1ml)) 5,000 unit Q8 SC Last administered on 08/22/18at 13:52; Admin Dose 5,000 UNIT; Start 08/21/18 at 15:30 Miscellaneous Information 1 ea NOTE XX ; Start 08/21/18 at 16:30 Glucose (Glutose) 15 gm Q15M PRN PO DECREASED GLUCOSE; Start 08/21/18 at 16:30 Glucose (Glutose) 22.5 gm Q15M PRN PO DECREASED GLUCOSE; Start 08/21/18 at 16:30 Dextrose (D50w Syringe) 25 ml Q15M PRN IV DECREASED GLUCOSE; Start 08/21/18 at 16:30 Dextrose (D50w Syringe) 50 ml Q15M PRN IV DECREASED GLUCOSE; Start 08/21/18 at 16:30 Glucagon (Glucagen) 1 mg Q15M PRN IM DECREASED GLUCOSE; Start 08/21/18 at 16:30 Glucose (Glutose) 15 gm Q15M PRN BUCCAL DECREASED GLUCOSE; Start 08/21/18 at 16:30 Fentanyl 100 ml @ 2.5 mls/hr TITRATE IV Last administered on 08/21/18at 22:48; Admin Dose 7.5 MLS/HR; Start 08/21/18 at 21:30 Bumetanide 25 mg/ Dextrose 250 ml @ 10 mls/hr Q24H IV Last administered on 08/22/18at 10:07; Admin Dose 10 MLS/HR; Start 08/22/18 at 08:30 Miscellaneous Information (*Rx Drug Level Order Reminder*) VANCO TR AT 1,900 ONCE ONCE XX ; Start 08/22/18 at 19:00; Stop 08/22/18 at 19:01 Results Result Diagram: 08/22/18 0430 08/22/18 0430 Results 24 hrs Laboratory Tests Test 08/21/18 16:58 08/21/18 18:46 08/21/18 20:32 08/21/18 23:30 Bedside Glucose 136 154 Lactic Acid 4.2 *H Level Creatine Kinase 959665 H Creatine Kinase 0.3 Index Creatinine > 400.00 H Kinase MB (Mass) Troponin I 1.840 *H Blood Gas Blood Specimen arterial Source Arterial Blood 08/21/2018 11: Date Drawn 40:51 PM Arterial Blood 7.449 pH (Temp corrected ) Arterial Blood 31.6 L pCO2 (Temp correct) Arterial Blood 96.4 pO2 (Temp corrected ) Arterial Blood 21.4 L HCO3 Arterial Blood -1.4 Base Excess Arterial Blood 97.4 Oxygen Saturati on John Test ACCEPTAB Arterial Blood Right Radial Gas Puncture Site Arterial 0.1 Blood Carboxyhe moglobin Arterial Blood 0.1 Methemoglobin Blood Gas A-a 80.4 H O2 Differential Oxyhemoglobin 97.2 Percent Blood Gas 37.0 Temperature Blood Gas 30.0 Respiration Rate Blood Gas 30 Actual Respiration Rat e Blood Gas VENT - AC Modality FiO2 30.0 Blood Gas Tidal 500.0 Volume Blood Gas Low 5.0 PEEP Setting Blood Gas NE Notified Whom Blood Gas 08/21/2018 11: Notified Time 57:58 PM Test 08/22/18 00:30 08/22/18 01:45 08/22/18 04:30 08/22/18 05:07 Lactic Acid 4.1 *H Level Bedside Glucose 155 149 White Blood 16.9 #H Count Red Blood Count 4.76 Hemoglobin 15.3 Hematocrit 44.4 Mean 93.3 Corpuscular Volume Mean 32.1 Corpuscular Hemoglobin Mean 34.5 Corpuscular Hemoglobin Conc ent Red Cell 13.0 Distribution Width Platelet Count 126 L Mean Platelet 11.1 H Volume Immature 1.100 H Granulocytes % Neutrophils % Segmented 47 Neutrophils % (Manual) Band 46 H Neutrophils % (Manual) Lymphocytes % Lymphocytes % 3 L (Manual) Reactive 2 H Lymphocytes % (Manual) Monocytes % Monocytes % 2 (Manual) Eosinophils % Basophils % Nucleated Red 0.1 H Blood Cells % Immature 0.190 H Granulocytes # Neutrophils # Neutrophils # 9.2 H (Manual) Band 7.7 H Neutrophils # Lymphocytes 0.5 L (Manual) Lymphocytes # Reactive 0.3 H Lymphocytes # Monocytes # Monocytes # 0.3 (Manual) Eosinophils # Basophils # Nucleated Red Blood Cells # Platelet DECREASED Estimate Prothrombin 27.2 H Time Prothrombin 2.1 Time Ratio INR 2.45 International Normalized Rati o Activated 38.5 H Partial Thrombo plast Time Thrombin Time 18.8 Fibrinogen 425.0 # Plasma Fibrin >80 and <160 Degradation Pro H ducts D-Dimer > 98361.00 H Sodium Level 142 Potassium Level 3.2 #L Chloride Level 103 # Carbon Dioxide 28 # Level Anion Gap 11 Blood Urea 44 H Nitrogen Creatinine 3.70 H Est Glomerular 19 L Filtrat Rate mL/min Glucose Level 151 # Uric Acid 8.2 H Calcium Level 5.5 *L Phosphorus 6.0 H Level Total Bilirubin 1.0 Direct 0.00 Bilirubin Indirect 1.0 Bilirubin Aspartate Amino 6708 H Transf (AST/SGO T) Alanine Aminotransferas e (ALT/SGPT) Alkaline 73 Phosphatase Total Protein 4.4 #L Albumin 2.2 #L Globulin 2.20 Albumin/Globuli 1.00 n Ratio Test 08/22/18 07:00 08/22/18 08:47 08/22/18 12:48 08/22/18 13:22 Blood Gas Blood arterial Blood Specimen arterial Source Arterial Blood 08/22/2018 7:09 08/22/2018 1:4 Date Drawn :16 AM 0:37 PM Arterial Blood 7.412 7.423 pH (Temp corrected ) Arterial Blood 39.1 36.6 pCO2 (Temp correct) Arterial Blood 101.7 H 68.7 L pO2 (Temp corrected ) Arterial Blood 24.3 23.4 HCO3 Arterial Blood -0.1 -0.6 Base Excess Arterial Blood 97.3 93.2 L Oxygen Saturati on John Test ACCEPTAB ACCEPTAB Arterial Blood Right Radial Right Radial Gas Puncture Site Arterial 0.3 0.3 Blood Carboxyhe moglobin Arterial Blood 0.1 0.1 Methemoglobin Blood Gas A-a 66.3 H 102.2 H O2 Differential Oxyhemoglobin 96.9 92.8 L Percent Blood Gas 37.0 37.0 Temperature Blood Gas 24.0 Respiration Rate Blood Gas 24 30 Actual Respiration Rat e Blood Gas VENT - AC VENT - CPAP Modality FiO2 30.0 30.0 Blood Gas Tidal 500.0 Volume Blood Gas Low 5.0 5.0 PEEP Setting Blood Gas JR VANESSA Notified Whom Blood Gas 08/22/2018 7:21 08/22/2018 1:5 Notified Time :49 AM 5:52 PM Bedside Glucose 122 Creatine Kinase 95843 #H Blood Gas 10 Pressure Support Test 08/22/18 13:43 Bedside Glucose 124 BRIANNE COYLE NP Aug 22, 2018 14:58
[2018-08-22] MEDS: VANCOMYCIN 1 GM 250 ML IVPB SCH (21:14)
[2018-08-23] VITALS (55 sets, daily range): BP systolic 112–154; BP diastolic 76–105; PULSE 86–99; RESP 11–34
[2018-08-23] MEDS: INSULIN ASPART [NOVOLOG] 3 ML PEN SC SCH ×6 (01:00→21:00)
[2018-08-23] MEDS: PIPER-TAZO 3.375 GM IV (PMX) 100 ML IVPB SCH (05:05)
[2018-08-23] MEDS: PANTOPRAZOLE 40 MG INJ IV SCH ×2 (05:06→17:24)
[2018-08-23] MEDS: SOD CHLORIDE 0.9% 1,000 ML IV SCH (05:06)
[2018-08-23] MEDS: HEPARIN 5,000 UNIT/1 ML VIAL SC SCH (05:16)
[2018-08-23] MEDS: THIAMINE 200 MG INJ IM SCH (05:28)
--- NOTE | 2018-08-23 07:18 | CONS ---
Date/Time of Note Date/Time of Note DATE: 08/23/18 TIME: 07:13 Assessment/Plan Assessment/Plan Chief Complaint/Hosp Course History as per chart, as patient is sedated and intubated. was found down in a parking lot hypoglycemic , altered. sent EMS to ER, where was intubated and noted to have ARF, transaminitis, coagulopathy, (+) evidence for polysubstance abuse. Currently anuric Problems: (1) Acute renal failure Status: Acute Comment: remains anuric despite fluids + Bumex.. will need HD today.. back off fluids... Acidemia resolved Qualifiers: Acute renal failure type: unspecified Qualified Codes: N17.9 - Acute kidney failure, unspecified (2) Coagulopathy Status: Acute Comment: resolving.. no bleeding (3) Shock Status: Acute Comment: resolved.. now off pressors.. blood/urine cxs remain (-) (4) Polysubstance abuse Status: Acute (5) Rhabdomyolysis Comment: with severe renal injury/anuria... CPK peaked >100K... now coming down some (6) Hypocalcemia Comment: NOT need Rx.. corrected around 7...asx (7) Edema Comment: so will back off fluids...HD today.. cont Bumex for now Consultation Date/Type/Reason Admit Date/Time Aug 20, 2018 at 21:39 Initial Consult Date Type of Consult Nephrology Requesting Provider: QASIM BURROWS 24 HR Interval Summary Free Text/Dictation remains sedated/intubated, and oliguric, the latter despite Bumex drip Exam/Review of Systems Vital Signs Vitals Vital Signs Date Temp Pulse Resp B/P (MAP) Pulse Ox O2 O2 Flow FiO2 Time Delivery Rate 08/23/18 86 24 98 30 05:18 08/23/18 133/87 Mechanical 05:00 (102) Ventilator 08/23/18 98.7 04:00 Intake and Output 08/22/18 08/22/18 08/23/18 1515:00 23:00 07:00 IntakeIntake Total 1312.5 ml 1730.0 ml 1407.5 ml OutputOutput Total 40 ml 25 ml 30 ml BalanceBalance 1272.5 ml 1705.0 ml 1377.5 ml Exam Constitutional: non-verbal (sedated on the vent) Head: normocephalic Neck: supple Respiratory: clear to auscultation Cardiovascular: regular rate and rhythm Gastrointestinal: soft, nl liver, spleen Extremities: edema (diffuse 1-2+) Medications Medications Current Medications Albuterol (Ventolin Hfa) 4 puff Q2H RESP THERAPY PRN INH SHORTNESS OF BREATH; Start 08/20/18 at 22:00 Ipratropium [place] (Atrovent Hfa) 4 puff Q2H RESP THERAPY PRN INH SHORTNESS OF BREATH; Start 08/20/18 at 22:00 Acetaminophen (Tylenol Liquid) 650 mg Q6H PRN PO PAIN LEVEL 1-3 OR FEVER; Start 08/20/18 at 22:00 Pantoprazole (Protonix Iv) 40 mg BID@0600,1800 IV Last administered on 08/23/18at 05:06; Admin Dose 40 MG; Start 08/20/18 at 22:00 Norepinephrine 16 mg/Dextrose 500 ml @ 1.88 mls/hr TITRATE IV Last administered on 08/21/18at 20:31; Admin Dose 9.38 MLS/HR; Start 08/21/18 at 00:00 Sodium Chloride 1,000 ml @ 150 mls/hr Q6H40M IV Last administered on 08/23/18at 05:06; Admin Dose 150 MLS/HR; Start 08/21/18 at 02:00 Vancomycin HCl (Vanco Iv Per Pharmacy) VANCOMYCIN PER PHARMACY PER PROTOCOL XX ; Start 08/21/18 at 00:00 Piperacillin Sod/ Tazobactam Sod 100 ml @ 200 mls/hr Q8 IVPB Last administered on 08/23/18at 05:05; Admin Dose 200 MLS/HR; Start 08/21/18 at 00:00 Insulin Aspart (Novolog Insulin Pen) NOVOLOG *MILD* ALGORI... Q4 SC Last administered on 08/22/18at 05:10; Admin Dose 1 UNIT; Start 08/21/18 at 01:00 Vancomycin HCl 250 ml @ 125 mls/hr Q24H IVPB Last administered on 08/22/18at 21:14; Admin Dose 125 MLS/HR; Start 08/21/18 at 20:00 Thiamine HCl (Vitamin B1) 300 mg DAILY@0300 IM Last administered on 08/23/18at 05:28; Admin Dose 300 MG; Start 08/21/18 at 03:00; Stop 08/24/18 at 02:59 Midazolam HCl 50 ml @ 3 mls/hr TITRATE IV Last administered on 08/21/18at 05:11; Admin Dose 4 MLS/HR; Start 08/21/18 at 04:00 Influenza Virus Vaccine Quadrival (Fluzone) 0.5 ml ONCE ONCE IM* ; Start 08/24/18 at 10:00; Stop 08/24/18 at 10:01 Heparin Sodium (Porcine) (Heparin (5000 Units/1ml)) 5,000 unit Q8 SC Last administered on 08/23/18at 05:16; Admin Dose 5,000 UNIT; Start 08/21/18 at 15:30 Miscellaneous Information 1 ea NOTE XX ; Start 08/21/18 at 16:30 Glucose (Glutose) 15 gm Q15M PRN PO DECREASED GLUCOSE; Start 08/21/18 at 16:30 Glucose (Glutose) 22.5 gm Q15M PRN PO DECREASED GLUCOSE; Start 08/21/18 at 16:30 Dextrose (D50w Syringe) 25 ml Q15M PRN IV DECREASED GLUCOSE; Start 08/21/18 at 16:30 Dextrose (D50w Syringe) 50 ml Q15M PRN IV DECREASED GLUCOSE; Start 08/21/18 at 16:30 Glucagon (Glucagen) 1 mg Q15M PRN IM DECREASED GLUCOSE; Start 08/21/18 at 16:30 Glucose (Glutose) 15 gm Q15M PRN BUCCAL DECREASED GLUCOSE; Start 08/21/18 at 16:30 Fentanyl 100 ml @ 2.5 mls/hr TITRATE IV Last administered on 08/21/18at 22:48; Admin Dose 7.5 MLS/HR; Start 08/21/18 at 21:30 Bumetanide 25 mg/ Dextrose 250 ml @ 10 mls/hr Q24H IV Last administered on 08/22/18at 10:07; Admin Dose 10 MLS/HR; Start 08/22/18 at 08:30 Results Result Diagram: 08/23/18 0435 08/23/18 0435 Results 24 hrs Laboratory Tests Test 08/22/18 08:47 08/22/18 12:48 08/22/18 13:22 08/22/18 13:43 Bedside Glucose 122 124 Creatine Kinase 82635 #H Blood Gas Blood arterial Specimen Source Arterial Blood 08/22/2018 1:40 Date Drawn :37 PM Arterial Blood 7.423 pH (Temp corrected ) Arterial Blood 36.6 pCO2 (Temp correct) Arterial Blood 68.7 L pO2 (Temp corrected ) Arterial Blood 23.4 HCO3 Arterial Blood -0.6 Base Excess Arterial Blood 93.2 L Oxygen Saturati on John Test ACCEPTAB Arterial Blood Right Radial Gas Puncture Site Arterial 0.3 Blood Carboxyhe moglobin Arterial Blood 0.1 Methemoglobin Blood Gas A-a 102.2 H O2 Differential Oxyhemoglobin 92.8 L Percent Blood Gas 37.0 Temperature Blood Gas 30 Actual Respiration Rat e Blood Gas VENT - CPAP Modality FiO2 30.0 Blood Gas Low 5.0 PEEP Setting Blood Gas 10 Pressure Support Blood Gas CHERELLE RT Notified Whom Blood Gas 08/22/2018 1:55 Notified Time :52 PM Test 08/22/18 17:52 08/22/18 19:15 08/22/18 21:13 08/23/18 01:34 Bedside Glucose 121 131 119 Vancomycin 16.7 Level Trough Test 08/23/18 04:35 08/23/18 04:36 White Blood 17.3 H Count Red Blood Count 3.68 #L Hemoglobin 11.9 #L Hematocrit 34.6 #L Mean 94.0 Corpuscular Volume Mean 32.3 Corpuscular Hemoglobin Mean 34.4 Corpuscular Hemoglobin Conc ent Red Cell 13.7 Distribution Width Platelet Count 107 L Mean Platelet 11.5 H Volume Immature 1.600 H Granulocytes % Neutrophils % Lymphocytes % Monocytes % Eosinophils % Basophils % Nucleated Red 0.1 H Blood Cells % Immature 0.280 H Granulocytes # Neutrophils # Lymphocytes # Monocytes # Eosinophils # Basophils # Nucleated Red Blood Cells # Prothrombin Pending Time Prothrombin 1.6 Time Ratio INR 1.65 International Normalized Rati o Activated 37.2 H Partial Thrombo plast Time Thrombin Time 19.1 Fibrinogen Pending Plasma Fibrin Pending Degradation Pro ducts D-Dimer Pending Sodium Level 141 Potassium Level 3.5 Chloride Level 105 Carbon Dioxide 24 Level Anion Gap 12 Blood Urea 70 H Nitrogen Creatinine 6.35 #H Est Glomerular 10 L Filtrat Rate mL/min Glucose Level 125 Calcium Level 5.5 *L Total Bilirubin 1.0 Direct 0.10 Bilirubin Indirect 0.9 Bilirubin Aspartate Amino Pending Transf (AST/SGO T) Alanine 2366 H Aminotransferas e (ALT/SGPT) Alkaline 71 Phosphatase Total Protein 4.3 L Albumin 2.2 L Globulin 2.10 Albumin/Globuli 1.04 n Ratio Bedside Glucose 128 SHAMAR PARKS MD Aug 23, 2018 07:18
--- NOTE | 2018-08-23 07:29 | PN ---
DATE: 08/22/2018 SUBJECTIVE: The patient remains intubated. Remains on fentanyl and Bumex drip. Norepinephrine is o n hold. OBJECTIVE: GENERAL: The patient is a well-developed, critically ill-appearing male who is unresponsive. VITAL SIGNS: Temperature 99.7 axillary, pulse 110 per minute and regular, respirations 24, blood pre ssure 125/71, pulse oximetry 98% on 30% oxygen via mechanical ventilator. SKIN: Scattered ecchymosis, no petechiae or rashes. HEENT: Normocephalic. No evidence of trauma. Pupils equal, round, react to light and accommodation . Sclerae nonicteric. There is an endotracheal tube in place. NECK: Supple. No jugular venous distention or thyroid enlargement. CHEST: Decreased breath sounds throughout with some scattered rales. No wheezes. HEART: Regular sinus rhythm. No S3, S4 or murmurs. ABDOMEN: No masses or ascites. EXTREMITIES: No clubbing, edema or cyanosis. There is a Suh catheter in place draining brownish u rine. LABORATORY DATA: Sodium 142, potassium 3.2, creatinine 3.70, BUN 44, calcium 5.5, total bilirubin 1, direct bilirubin 0, AST 6708, ALT ____ measure, alkaline phosphatase 73, lactic acid 4.1. White count 16,900 with 46% bands. Hemoglobin 15.3, hematocrit 44.4, and platelet count 126,000. Protime 27.2 seconds, INR of 2.45, PTT 38.5 seconds, fibrinogen 425. Fibrin degradation products of greater than 80 and less than 160. D-dimer 10,000. ASSESSMENT: 1. Respiratory failure, possibly secondary to drug overdose. 2. Metabolic acidosis. 3. Rhabdomyolysis. 4. Transaminitis, likely due to hypoperfusion of liver. 5. Coagulopathy, likely due to liver disease. DISCUSSION: At this time, the patient does not require any blood products. As noted, the patient do es have a mildly elevated prothrombin time. This is likely due to the patient's liver disorder. Fib rinogen is now 425 without infusion of plasma or cryoprecipitate. Fibrinogen is an acute phase react ant and not actually hepatic dependent. At this time, no hematologic products are indicated. Dictated By: MAKAYLA GOLDSTEIN MD SR/ZACK Conf#: [id number] DID#: [id number] CC: QASIM BURROWS MD;*EndCC*
--- NOTE | 2018-08-23 08:12 | PN ---
Date/Time of Note Date/Time of Note DATE: 08/23/18 TIME: 08:10 Assessment/Plan VTE Prophylaxis Risk score (from Nsg)>0 risk: 8 SCD applied (from Ns): Yes Pharmacological prophylaxis: heparin Lines/Catheters IV Catheter Type (from Nrsg): damian cath Urinary Cath still in place: Yes Reason Cath still needed: other (indicate) (coma) Assessment/Plan Hospital Course 33 yo man found in parking lot and now comatose and intubated. His toxicology screen was positive for multiple drugs. There is evidence for rhabdomyolysis, renal failure and shock in addition to the altered mental status and respiratory failure. Assessment/Plan Coag studies do not suggest DIC of significance. No transfusions needed today. Dialysis is being planned. It remains to be seen how much neurologic recovery will occur. Subjective 24 Hr Interval Summary Free Text/Dictation Pt remains unresponsive and on respirator. Exam/Review of Systems Vital Signs Vitals Vital Signs Date Temp Pulse Resp B/P (MAP) Pulse Ox O2 O2 Flow FiO2 Time Delivery Rate 08/23/18 89 22 132/86 96 Mechanical 07:00 (101) Ventilator 08/23/18 30 05:18 08/23/18 98.7 04:00 Intake and Output 08/22/18 08/22/18 08/23/18 1515:00 23:00 07:00 IntakeIntake Total 1312.5 ml 1730.0 ml 1560.0 ml OutputOutput Total 40 ml 25 ml 30 ml BalanceBalance 1272.5 ml 1705.0 ml 1530.0 ml Exam Constitutional: other (comatose) Head: normocephalic Eyes: nl conjunctiva ENMT: other (intubated) Respiratory: other (intubated) Cardiovascular: regular rate and rhythm Gastrointestinal: soft, non-tender Medications Medications Current Medications Albuterol (Ventolin Hfa) 4 puff Q2H RESP THERAPY PRN INH SHORTNESS OF BREATH; Start 08/20/18 at 22:00 Ipratropium [place] (Atrovent Hfa) 4 puff Q2H RESP THERAPY PRN INH SHORTNESS OF BREATH; Start 08/20/18 at 22:00 Acetaminophen (Tylenol Liquid) 650 mg Q6H PRN PO PAIN LEVEL 1-3 OR FEVER; Start 08/20/18 at 22:00 Pantoprazole (Protonix Iv) 40 mg BID@0600,1800 IV Last administered on 08/23/18at 05:06; Admin Dose 40 MG; Start 08/20/18 at 22:00 Norepinephrine 16 mg/Dextrose 500 ml @ 1.88 mls/hr TITRATE IV Last administered on 08/21/18at 20:31; Admin Dose 9.38 MLS/HR; Start 08/21/18 at 00:00 Vancomycin HCl (Vanco Iv Per Pharmacy) VANCOMYCIN PER PHARMACY PER PROTOCOL XX ; Start 08/21/18 at 00:00 Piperacillin Sod/ Tazobactam Sod 100 ml @ 200 mls/hr Q8 IVPB Last administered on 08/23/18at 05:05; Admin Dose 200 MLS/HR; Start 08/21/18 at 00:00 Insulin Aspart (Novolog Insulin Pen) NOVOLOG *MILD* ALGORI... Q4 SC Last administered on 08/22/18at 05:10; Admin Dose 1 UNIT; Start 08/21/18 at 01:00 Vancomycin HCl 250 ml @ 125 mls/hr Q24H IVPB Last administered on 08/22/18at 21:14; Admin Dose 125 MLS/HR; Start 08/21/18 at 20:00 Thiamine HCl (Vitamin B1) 300 mg DAILY@0300 IM Last administered on 08/23/18at 05:28; Admin Dose 300 MG; Start 08/21/18 at 03:00; Stop 08/24/18 at 02:59 Midazolam HCl 50 ml @ 3 mls/hr TITRATE IV Last administered on 08/21/18at 05: 11; Admin Dose 4 MLS/HR; Start 08/21/18 at 04:00 Influenza Virus Vaccine Quadrival (Fluzone) 0.5 ml ONCE ONCE IM* ; Start 08/24/18 at 10:00; Stop 08/24/18 at 10:01 Heparin Sodium (Porcine) (Heparin (5000 Units/1ml)) 5,000 unit Q8 SC Last administered on 08/23/18at 05:16; Admin Dose 5,000 UNIT; Start 08/21/18 at 15:30 Miscellaneous Information 1 ea NOTE XX ; Start 08/21/18 at 16:30 Glucose (Glutose) 15 gm Q15M PRN PO DECREASED GLUCOSE; Start 08/21/18 at 16:30 Glucose (Glutose) 22.5 gm Q15M PRN PO DECREASED GLUCOSE; Start 08/21/18 at 16:30 Dextrose (D50w Syringe) 25 ml Q15M PRN IV DECREASED GLUCOSE; Start 08/21/18 at 16:30 Dextrose (D50w Syringe) 50 ml Q15M PRN IV DECREASED GLUCOSE; Start 08/21/18 at 16:30 Glucagon (Glucagen) 1 mg Q15M PRN IM DECREASED GLUCOSE; Start 08/21/18 at 16:30 Glucose (Glutose) 15 gm Q15M PRN BUCCAL DECREASED GLUCOSE; Start 08/21/18 at 16:30 Fentanyl 100 ml @ 2.5 mls/hr TITRATE IV Last administered on 08/21/18at 22:48; Admin Dose 7.5 MLS/HR; Start 08/21/18 at 21:30 Bumetanide 25 mg/ Dextrose 250 ml @ 10 mls/hr Q24H IV Last administered on 08/22/18at 10:07; Admin Dose 10 MLS/HR; Start 08/22/18 at 08:30 Results Result Diagram: 08/23/18 0435 08/23/18 0435 Results 24 hrs Laboratory Tests Test 08/22/18 08:47 08/22/18 12:48 08/22/18 13:22 08/22/18 13:43 Bedside Glucose 122 124 Creatine Kinase 31211 #H Blood Gas Blood arterial Specimen Source Arterial Blood 08/22/2018 1:40 Date Drawn :37 PM Arterial Blood 7.423 pH (Temp corrected ) Arterial Blood 36.6 pCO2 (Temp correct) Arterial Blood 68.7 L pO2 (Temp corrected ) Arterial Blood 23.4 HCO3 Arterial Blood -0.6 Base Excess Arterial Blood 93.2 L Oxygen Saturati on John Test ACCEPTAB Arterial Blood Right Radial Gas Puncture Site Arterial 0.3 Blood Carboxyhe moglobin Arterial Blood 0.1 Methemoglobin Blood Gas A-a 102.2 H O2 Differential Oxyhemoglobin 92.8 L Percent Blood Gas 37.0 Temperature Blood Gas 30 Actual Respiration Rat e Blood Gas VENT - CPAP Modality FiO2 30.0 Blood Gas Low 5.0 PEEP Setting Blood Gas 10 Pressure Support Blood Gas CHERELLE RT Notified Whom Blood Gas 08/22/2018 1:55 Notified Time :52 PM Test 08/22/18 17:52 08/22/18 19:15 08/22/18 21:13 08/23/18 01:34 Bedside Glucose 121 131 119 Vancomycin 16.7 Level Trough Test 08/23/18 04:35 08/23/18 04:36 White Blood 17.3 H Count Red Blood Count 3.68 #L Hemoglobin 11.9 #L Hematocrit 34.6 #L Mean 94.0 Corpuscular Volume Mean 32.3 Corpuscular Hemoglobin Mean 34.4 Corpuscular Hemoglobin Conc ent Red Cell 13.7 Distribution Width Platelet Count 107 L Mean Platelet 11.5 H Volume Immature 1.600 H Granulocytes % Neutrophils % Lymphocytes % Monocytes % Eosinophils % Basophils % Nucleated Red 0.1 H Blood Cells % Immature 0.280 H Granulocytes # Neutrophils # Lymphocytes # Monocytes # Eosinophils # Basophils # Nucleated Red Blood Cells # Prothrombin 19.9 H Time Prothrombin 1.6 Time Ratio INR 1.65 International Normalized Rati o Activated 37.2 H Partial Thrombo plast Time Thrombin Time 19.1 Fibrinogen Pending Plasma Fibrin Pending Degradation Pro ducts D-Dimer > 21344.00 H Sodium Level 141 Potassium Level 3.5 Chloride Level 105 Carbon Dioxide 24 Level Anion Gap 12 Blood Urea 70 H Nitrogen Creatinine 6.35 #H Est Glomerular 10 L Filtrat Rate mL/min Glucose Level 125 Calcium Level 5.5 *L Total Bilirubin 1.0 Direct 0.10 Bilirubin Indirect 0.9 Bilirubin Aspartate Amino Pending Transf (AST/SGO T) Alanine 2366 H Aminotransferas e (ALT/SGPT) Alkaline 71 Phosphatase Total Protein 4.3 L Albumin 2.2 L Globulin 2.10 Albumin/Globuli 1.04 n Ratio Bedside Glucose 128 MAXIMO HOOD MD Aug 23, 2018 08:12
--- NOTE | 2018-08-23 09:37 | CONS ---
Date/Time of Note Date/Time of Note DATE: 08/23/18 TIME: 09:34 Assessment/Plan Assessment/Plan Additional Assessment/Plan Chest x-ray was reviewed from today which is essentially clear. Ventilator setting; AC of 24, tidal volume 500, PEEP of 5, 30% FiO2. Patient is currently on fentanyl 25 mics per hour. Assessment recommendations; 1. Patient admitted with respiratory failure due to acute onset of severe metabolic acidosis with acute renal failure possibly acute on chronic. Status post hemodialysis with marked interval resolution of metabolic acidosis. 2. Acute encephalopathy with interval resolution as well. 3. Thrombocytopenia. Likely heparin-induced. 4. Currently no evidence of any ongoing infective process. 5. History of drug abuse. Hold fentanyl. Once the patient is off fentanyl drip he will be switched to CPAP mode in order to assess for possible extubation. Meanwhile discontinue subcutaneous heparin and monitor platelet count. 35 minutes of critical care time was spent evaluating the patient. Consultation Date/Type/Reason Admit Date/Time Aug 20, 2018 at 21:39 Initial Consult Date 08/21/18 Type of Consult Pulmonary/critical care History presenting illness; Patient is a 33-year-old male who was brought into the emergency room after he was found unresponsive at a sidewalk, patient however did not require any CPR performed and had spontaneous pulse and respirations. Patient be diagnosed with severe sepsis as well as acute renal failure and shock liver. By the time I saw the patient I saw, patient is orally intubated and sedated. Past medical history; 1. History of substance abuse. Medications; reviewed. Patient is currently on Versed 2 mg/h, Levophed 80 mics per minute. Patient also is on adequate fluid resuscitation. Other medications were reviewed in detail. Allergies; not available. Social history; drug abuse. Family history and occupational history not available. REVIEW of system; unable to be obtained. General exam; young male, orally intubated, sedated, currently in no distress. Requesting Provider: QASIM BURROWS 24 HR Interval Summary Free Text/Dictation Patient's condition remains critical but stable. Patient has remained hemodynamically stable. No untoward events reported. General exam; young male, orally intubated, readily arousable. Currently no distress. Orally intubated. Exam/Review of Systems Vital Signs Vitals Vital Signs Date Temp Pulse Resp B/P (MAP) Pulse Ox O2 O2 Flow FiO2 Time Delivery Rate 12/18/18 98.7 88 24 137/82 99 Mechanical 08:00 (100) Ventilator 08/23/18 30 08:00 Intake and Output 08/22/18 08/22/18 08/23/18 1515:00 23:00 07:00 IntakeIntake Total 1312.5 ml 1730.0 ml 1560.0 ml OutputOutput Total 40 ml 25 ml 30 ml BalanceBalance 1272.5 ml 1705.0 ml 1530.0 ml Exam H HEENT exam; supple neck, no JVD. No lymphadenopathy. Midline trachea. No thyromegaly. Orally intubated. Patient has fair dentition. Nasogastric tube in place. Pupils are small bilaterally. Chest exam; clear to auscultation. S1-S2 audible, no murmurs. Regular rhythm. Abdomen exam; soft, no organomegaly, nontender. Bowel sounds audible. Extremity exam; no peripheral edema or clubbing. 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 Medications Medications Current Medications Albuterol (Ventolin Hfa) 4 puff Q2H RESP THERAPY PRN INH SHORTNESS OF BREATH; Start 08/20/18 at 22:00 Ipratropium [place] (Atrovent Hfa) 4 puff Q2H RESP THERAPY PRN INH SHORTNESS OF BREATH; Start 08/20/18 at 22:00 Acetaminophen (Tylenol Liquid) 650 mg Q6H PRN PO PAIN LEVEL 1-3 OR FEVER; Start 08/20/18 at 22:00 Pantoprazole (Protonix Iv) 40 mg BID@0600,1800 IV Last administered on 08/23/18at 05:06; Admin Dose 40 MG; Start 08/20/18 at 22:00 Norepinephrine 16 mg/Dextrose 500 ml @ 1.88 mls/hr TITRATE IV Last administered on 08/21/18at 20:31; Admin Dose 9.38 MLS/HR; Start 08/21/18 at 00:00 Vancomycin HCl (Vanco Iv Per Pharmacy) VANCOMYCIN PER PHARMACY PER PROTOCOL XX ; Start 08/21/18 at 00:00 Insulin Aspart (Novolog Insulin Pen) NOVOLOG *MILD* ALGORI... Q4 SC Last administered on 08/22/18at 05:10; Admin Dose 1 UNIT; Start 08/21/18 at 01:00 Thiamine HCl (Vitamin B1) 300 mg DAILY@0300 IM Last administered on 08/23/18at 05:28; Admin Dose 300 MG; Start 08/21/18 at 03:00; Stop 08/24/18 at 02:59 Midazolam HCl 50 ml @ 3 mls/hr TITRATE IV Last administered on 08/21/18at 05:11; Admin Dose 4 MLS/HR; Start 08/21/18 at 04:00 Influenza Virus Vaccine Quadrival (Fluzone) 0.5 ml ONCE ONCE IM* ; Start 08/24/18 at 10:00; Stop 08/24/18 at 10:01 Heparin Sodium (Porcine) (Heparin (5000 Units/1ml)) 5,000 unit Q8 SC Last administered on 08/23/18at 05:16; Admin Dose 5,000 UNIT; Start 08/21/18 at 15:30 Miscellaneous Information 1 ea NOTE XX ; Start 08/21/18 at 16:30 Glucose (Glutose) 15 gm Q15M PRN PO DECREASED GLUCOSE; Start 08/21/18 at 16:30 Glucose (Glutose) 22.5 gm Q15M PRN PO DECREASED GLUCOSE; Start 08/21/18 at 16:30 Dextrose (D50w Syringe) 25 ml Q15M PRN IV DECREASED GLUCOSE; Start 08/21/18 at 16:30 Dextrose (D50w Syringe) 50 ml Q15M PRN IV DECREASED GLUCOSE; Start 08/21/18 at 16:30 Glucagon (Glucagen) 1 mg Q15M PRN IM DECREASED GLUCOSE; Start 08/21/18 at 16:30 Glucose (Glutose) 15 gm Q15M PRN BUCCAL DECREASED GLUCOSE; Start 08/21/18 at 16:30 Fentanyl 100 ml @ 2.5 mls/hr TITRATE IV Last administered on 08/21/18at 22:48; Admin Dose 7.5 MLS/HR; Start 08/21/18 at 21:30 Bumetanide 25 mg/ Dextrose 250 ml @ 10 mls/hr Q24H IV Last administered on 08/22/18at 10:07; Admin Dose 10 MLS/HR; Start 08/22/18 at 08:30 Piperacillin Sod/ Tazobactam Sod 50 ml @ 100 mls/hr Q8 IVPB ; Start 08/23/18 at 14:00 Results Result Diagram: 08/23/18 0435 08/23/18 0435 Results 24 hrs Laboratory Tests Test 08/22/18 12:48 08/22/18 13:22 08/22/18 13:43 08/22/18 17:52 Creatine Kinase 58142 #H Blood Gas Blood arterial Specimen Source Arterial Blood 08/22/2018 1:40 Date Drawn :37 PM Arterial Blood 7.423 pH (Temp corrected ) Arterial Blood 36.6 pCO2 (Temp correct) Arterial Blood 68.7 L pO2 (Temp corrected ) Arterial Blood 23.4 HCO3 Arterial Blood -0.6 Base Excess Arterial Blood 93.2 L Oxygen Saturati on John Test ACCEPTAB Arterial Blood Right Radial Gas Puncture Site Arterial 0.3 Blood Carboxyhe moglobin Arterial Blood 0.1 Methemoglobin Blood Gas A-a 102.2 H O2 Differential Oxyhemoglobin 92.8 L Percent Blood Gas 37.0 Temperature Blood Gas 30 Actual Respiration Rat e Blood Gas VENT - CPAP Modality FiO2 30.0 Blood Gas Low 5.0 PEEP Setting Blood Gas 10 Pressure Support Blood Gas CHERELLE RT Notified Whom Blood Gas 08/22/2018 1:55 Notified Time :52 PM Bedside Glucose 124 121 Test 08/22/18 19:15 08/22/18 21:13 08/23/18 01:34 08/23/18 04:35 Vancomycin 16.7 Level Trough Bedside Glucose 131 119 White Blood 17.3 H Count Red Blood Count 3.68 #L Hemoglobin 11.9 #L Hematocrit 34.6 #L Mean 94.0 Corpuscular Volume Mean 32.3 Corpuscular Hemoglobin Mean 34.4 Corpuscular Hemoglobin Conc ent Red Cell 13.7 Distribution Width Platelet Count 107 L Mean Platelet 11.5 H Volume Immature 1.600 H Granulocytes % Neutrophils % Segmented 67 Neutrophils % (Manual) Band 23 H Neutrophils % (Manual) Lymphocytes % Lymphocytes % 7 L (Manual) Monocytes % Monocytes % 3 (Manual) Eosinophils % Basophils % Nucleated Red 0.1 H Blood Cells % Immature 0.280 H Granulocytes # Neutrophils # Neutrophils # 12.3 H (Manual) Band 3.9 H Neutrophils # Lymphocytes 1.2 (Manual) Lymphocytes # Monocytes # Monocytes # 0.5 (Manual) Eosinophils # Basophils # Nucleated Red Blood Cells # Platelet DECREASED Estimate Giant Platelets 1 H Prothrombin 19.9 H Time Prothrombin 1.6 Time Ratio INR 1.65 International Normalized Rati o Activated 37.2 H Partial Thrombo plast Time Thrombin Time 19.1 Fibrinogen 501.0 #H Plasma Fibrin >80 and <160 Degradation Pro H ducts D-Dimer > 65502.00 H Sodium Level 141 Potassium Level 3.5 Chloride Level 105 Carbon Dioxide 24 Level Anion Gap 12 Blood Urea 70 H Nitrogen Creatinine 6.35 #H Est Glomerular 10 L Filtrat Rate mL/min Glucose Level 125 Calcium Level 5.5 *L Total Bilirubin 1.0 Direct 0.10 Bilirubin Indirect 0.9 Bilirubin Aspartate Amino 3433 H Transf (AST/SGO T) Alanine 2366 H Aminotransferas e (ALT/SGPT) Alkaline 71 Phosphatase Total Protein 4.3 L Albumin 2.2 L Globulin 2.10 Albumin/Globuli 1.04 n Ratio Test 08/23/18 04:36 08/23/18 08:59 Bedside Glucose 128 133 BERNARD SINGH Aug 23, 2018 09:37
--- NOTE | 2018-08-23 10:42 | PN ---
Date/Time of Note Date/Time of Note DATE: 08/23/18 TIME: 10:35 Assessment/Plan VTE Prophylaxis Risk score (from Ns)>0 risk: 8 SCD applied (from Ns): Yes Pharmacological prophylaxis: other Lines/Catheters IV Catheter Type (from [facility]): Saurabh cath Urinary Cath still in place: Yes Reason Cath still needed: urinary retention Assessment/Plan Hospital Course S: Patient still intubated. Seen by renal team and hematology oncology teams this morning. O: VS - see below PE: Gen: Lying in bed, intubated. Eyes: Unable to fully assess at this time HEENT: ET tube in place, moist mucous membranes, Card: Regular rate and rhythm no murmurs Pulm: Mechanical breath sounds bilaterally, no crackes. Abd: Soft, nondistended. Ext: No cyanosis/clubbing/edema Skin: Large fluid-filled bulla R medial thigh. : Suh in place with minimal urine output. Assessment/Plan: 33 yo man brought in found down with subsequent JULIAN secondary to rhabdomyolysis; positive for alcohol, methamphetamine, cannabis, opioids as well. #JULIAN- Oliguric renal failure with hyperkalemia (after potassium replacement), also presented with severe metabolic acidosis- Likely due to a combination of rhabdo and drug use. -Likely will need dialysis today, for now per renal recommendations continue Bumex with D5, monitor creatinine levels and urine output, this is very minimal at this time. # acute ventilatory dependent respiratory failure-likely secondary to polysubstance overdose resulting in multiorgan dysfunction; patient had subsequent severe metabolic acidosis with inadequate respiratory compensation- CXR also with evidence of possible infiltrate or vascular congestion -For now continue Vanco/zosyn for possible community-acquired pneumonia. -Follow-up pulmonary recommendations, again for possible CPAP trial # Acute encephalopathy: - From polysubstance abuse. Currently sedated on Versed as well. -Monitor, again likely will turn off Versed today for possible CPAP trial # Elevated troponin-appears stable- CV Dr. Nj consulted. Likely demand ischemia from drug use. - Will not treat per NSTEMI protocol, follow-up cardiology recommendations # transaminitis: - May be from shock liver or drug use.- Hep B, Hep C negative. -Continue to monitor LFTs # Rhabdomyolysis: - Secondary to patient found down as well as polysubstance abuse -again now requiring dialysis. -Monitor CK levels # Coagulopathy- May be due to liver and renal injury as well as drug use.- No DIC - Will watch closely, # polysubstance abuse: - Again patient was found to be positive for opioids, methamphetamine, marijuana and an elevated blood alcohol level. -Ordered for thiamine 300 mg IM daily times 3 days, further treatment as per the clinical course # DVT and GI prophylaxis: Protonix twice daily Social work consulted for next of kin; after very diligent search no one has been found yet. Critical care time spent on patient care today equals 45 minutes. Exam/Review of Systems Vital Signs Vitals Vital Signs Date Temp Pulse Resp B/P (MAP) Pulse Ox O2 O2 Flow FiO2 Time Delivery Rate 08/23/18 98.7 88 24 137/82 99 Mechanical 08:00 (100) Ventilator 08/23/18 30 08:00 Intake and Output 08/22/18 08/22/18 08/23/18 1515:00 23:00 07:00 IntakeIntake Total 1312.5 ml 1730.0 ml 1560.0 ml OutputOutput Total 40 ml 25 ml 30 ml BalanceBalance 1272.5 ml 1705.0 ml 1530.0 ml Medications Medications Current Medications Albuterol (Ventolin Hfa) 4 puff Q2H RESP THERAPY PRN INH SHORTNESS OF BREATH; Start 08/20/18 at 22:00 Ipratropium [place] (Atrovent Hfa) 4 puff Q2H RESP THERAPY PRN INH SHORTNESS OF BREATH; Start 08/20/18 at 22:00 Acetaminophen (Tylenol Liquid) 650 mg Q6H PRN PO PAIN LEVEL 1-3 OR FEVER; Start 08/20/18 at 22:00 Pantoprazole (Protonix Iv) 40 mg BID@0600,1800 IV Last administered on 08/23/18at 05:06; Admin Dose 40 MG; Start 08/20/18 at 22:00 Norepinephrine 16 mg/Dextrose 500 ml @ 1.88 mls/hr TITRATE IV Last administered on 08/21/18at 20:31; Admin Dose 9.38 MLS/HR; Start 08/21/18 at 00:00 Vancomycin HCl (Vanco Iv Per Pharmacy) VANCOMYCIN PER PHARMACY PER PROTOCOL XX ; Start 08/21/18 at 00:00 Insulin Aspart (Novolog Insulin Pen) NOVOLOG *MILD* ALGORI... Q4 SC Last administered on 08/22/18at 05:10; Admin Dose 1 UNIT; Start 08/21/18 at 01:00 Thiamine HCl (Vitamin B1) 300 mg DAILY@0300 IM Last administered on 08/23/18at 05:28; Admin Dose 300 MG; Start 08/21/18 at 03:00; Stop 08/24/18 at 02:59 Midazolam HCl 50 ml @ 3 mls/hr TITRATE IV Last administered on 08/21/18at 05:11; Admin Dose 4 MLS/HR; Start 08/21/18 at 04:00 Influenza Virus Vaccine Quadrival (Fluzone) 0.5 ml ONCE ONCE IM* ; Start 08/24/18 at 10:00; Stop 08/24/18 at 10:01 Miscellaneous Information 1 ea NOTE XX ; Start 08/21/18 at 16:30 Glucose (Glutose) 15 gm Q15M PRN PO DECREASED GLUCOSE; Start 08/21/18 at 16:30 Glucose (Glutose) 22.5 gm Q15M PRN PO DECREASED GLUCOSE; Start 08/21/18 at 16:30 Dextrose (D50w Syringe) 25 ml Q15M PRN IV DECREASED GLUCOSE; Start 08/21/18 at 16:30 Dextrose (D50w Syringe) 50 ml Q15M PRN IV DECREASED GLUCOSE; Start 08/21/18 at 16:30 Glucagon (Glucagen) 1 mg Q15M PRN IM DECREASED GLUCOSE; Start 08/21/18 at 16:30 Glucose (Glutose) 15 gm Q15M PRN BUCCAL DECREASED GLUCOSE; Start 08/21/18 at 16:30 Fentanyl 100 ml @ 2.5 mls/hr TITRATE IV Last administered on 08/21/18at 22:48; Admin Dose 7.5 MLS/HR; Start 08/21/18 at 21:30 Bumetanide 25 mg/ Dextrose 250 ml @ 10 mls/hr Q24H IV Last administered on 08/22/18at 10:07; Admin Dose 10 MLS/HR; Start 08/22/18 at 08:30 Piperacillin Sod/ Tazobactam Sod 50 ml @ 100 mls/hr Q8 IVPB ; Start 08/23/18 at 14:00 Results Result Diagram: 08/23/18 0435 08/23/18 0435 Results 24 hrs Laboratory Tests Test 08/22/18 12:48 08/22/18 13:22 08/22/18 13:43 08/22/18 17:52 Creatine Kinase 89379 #H Blood Gas Blood arterial Specimen Source Arterial Blood 08/22/2018 1:40 Date Drawn :37 PM Arterial Blood 7.423 pH (Temp corrected ) Arterial Blood 36.6 pCO2 (Temp correct) Arterial Blood 68.7 L pO2 (Temp corrected ) Arterial Blood 23.4 HCO3 Arterial Blood -0.6 Base Excess Arterial Blood 93.2 L Oxygen Saturati on John Test ACCEPTAB Arterial Blood Right Radial Gas Puncture Site Arterial 0.3 Blood Carboxyhe moglobin Arterial Blood 0.1 Methemoglobin Blood Gas A-a 102.2 H O2 Differential Oxyhemoglobin 92.8 L Percent Blood Gas 37.0 Temperature Blood Gas 30 Actual Respiration Rat e Blood Gas VENT - CPAP Modality FiO2 30.0 Blood Gas Low 5.0 PEEP Setting Blood Gas 10 Pressure Support Blood Gas CHERELLE RT Notified Whom Blood Gas 08/22/2018 1:55 Notified Time :52 PM Bedside Glucose 124 121 Test 08/22/18 19:15 08/22/18 21:13 08/23/18 01:34 08/23/18 04:35 Vancomycin 16.7 Level Trough Bedside Glucose 131 119 White Blood 17.3 H Count Red Blood Count 3.68 #L Hemoglobin 11.9 #L Hematocrit 34.6 #L Mean 94.0 Corpuscular Volume Mean 32.3 Corpuscular Hemoglobin Mean 34.4 Corpuscular Hemoglobin Conc ent Red Cell 13.7 Distribution Width Platelet Count 107 L Mean Platelet 11.5 H Volume Immature 1.600 H Granulocytes % Neutrophils % Segmented 67 Neutrophils % (Manual) Band 23 H Neutrophils % (Manual) Lymphocytes % Lymphocytes % 7 L (Manual) Monocytes % Monocytes % 3 (Manual) Eosinophils % Basophils % Nucleated Red 0.1 H Blood Cells % Immature 0.280 H Granulocytes # Neutrophils # Neutrophils # 12.3 H (Manual) Band 3.9 H Neutrophils # Lymphocytes 1.2 (Manual) Lymphocytes # Monocytes # Monocytes # 0.5 (Manual) Eosinophils # Basophils # Nucleated Red Blood Cells # Platelet DECREASED Estimate Giant Platelets 1 H Prothrombin 19.9 H Time Prothrombin 1.6 Time Ratio INR 1.65 International Normalized Rati o Activated 37.2 H Partial Thrombo plast Time Thrombin Time 19.1 Fibrinogen 501.0 #H Plasma Fibrin >80 and <160 Degradation Pro H ducts D-Dimer > 24113.00 H Sodium Level 141 Potassium Level 3.5 Chloride Level 105 Carbon Dioxide 24 Level Anion Gap 12 Blood Urea 70 H Nitrogen Creatinine 6.35 #H Est Glomerular 10 L Filtrat Rate mL/min Glucose Level 125 Calcium Level 5.5 *L Total Bilirubin 1.0 Direct 0.10 Bilirubin Indirect 0.9 Bilirubin Aspartate Amino 3433 H Transf (AST/SGO T) Alanine 2366 H Aminotransferas e (ALT/SGPT) Alkaline 71 Phosphatase Creatine Kinase 86075 #H Total Protein 4.3 L Albumin 2.2 L Globulin 2.10 Albumin/Globuli 1.04 n Ratio Test 08/23/18 04:36 08/23/18 08:59 Bedside Glucose 128 133 CINTIA ESPINOSA Aug 23, 2018 10:42
--- NOTE | 2018-08-23 11:29 | CONS ---
Date/Time of Note Date/Time of Note DATE: 08/23/18 TIME: 11:27 Assessment/Plan Assessment/Plan Chief Complaint/Hosp Course No acute events overnight patient looks comfortable on vent he is awake follows commands no fevers overnight temperature 98.7 pulse 88 respirations 24 blood pressure 137/82 saturation 99% WBC 17.3 H&H 11.9 and 34.6 platelets 107 bands 23 BUN 70 creatinine 6.35 Microbiologist cultures had been negative, sputum culture pending Diagnostics liver ultrasound revealed no cholelithiasis or evidence for biliary obstruction trace right pleural effusion. Echogenic liver compatible with nonspecific parenchymal disease Chest x-ray this morning revealed improved aeration of the right upper lobe com pared to prior exam Indwelling: Endotracheal tube NG tube Suh right IJ triple-lumen catheter, rig ht femoral Saurabh Antimicrobials: Vancomycin, Zosyn Physical examination: Well-nourished well-developed middle-aged man who is in no distress. Head atraumatic normocephalic sclera nonicteric. Neck is supple chest rise symmetrical breath sounds diminished bases. Heart: S1-S2, tachycardic. Abdomen soft bowel sounds present. Extremities with bilateral edema Assessment: 1. Resolving sepsis status post shock 2. Acute encephalopathy, resolving 3. Acute hypoxemic respiratory failure 4. Pneumonia possibly aspirated 5. Pulmonary edema 6. Acute renal failure, on hemodialysis 7. Transaminitis, possibly shock liver 8. Polysubstance abuse Plan: Patient is doing better, DC vancomycin, continue Zosyn, await for sputum culture, vent management per pulmonary Consultation Date/Type/Reason Admit Date/Time Aug 20, 2018 at 21:39 Initial Consult Date 08/21/18 Type of Consult id Requesting Provider: QASIM BURROWS Exam/Review of Systems Vital Signs Vitals Vital Signs Date Temp Pulse Resp B/P (MAP) Pulse Ox O2 O2 Flow FiO2 Time Delivery Rate 08/23/18 98.7 88 24 137/82 99 Mechanical 08:00 (100) Ventilator 08/23/18 30 08:00 Intake and Output 08/22/18 08/22/18 08/23/18 1515:00 23:00 07:00 IntakeIntake Total 1312.5 ml 1730.0 ml 1560.0 ml OutputOutput Total 40 ml 25 ml 30 ml BalanceBalance 1272.5 ml 1705.0 ml 1530.0 ml Medications Medications Current Medications Albuterol (Ventolin Hfa) 4 puff Q2H RESP THERAPY PRN INH SHORTNESS OF BREATH; Start 08/20/18 at 22:00 Ipratropium [place] (Atrovent Hfa) 4 puff Q2H RESP THERAPY PRN INH SHORTNESS OF BREATH; Start 08/20/18 at 22:00 Acetaminophen (Tylenol Liquid) 650 mg Q6H PRN PO PAIN LEVEL 1-3 OR FEVER; Start 08/20/18 at 22:00 Pantoprazole (Protonix Iv) 40 mg BID@0600,1800 IV Last administered on 08/23/18at 05:06; Admin Dose 40 MG; Start 08/20/18 at 22:00 Norepinephrine 16 mg/Dextrose 500 ml @ 1.88 mls/hr TITRATE IV Last administered on 08/21/18at 20:31; Admin Dose 9.38 MLS/HR; Start 08/21/18 at 00:00 Vancomycin HCl (Vanco Iv Per Pharmacy) VANCOMYCIN PER PHARMACY PER PROTOCOL XX ; Start 08/21/18 at 00:00 Insulin Aspart (Novolog Insulin Pen) NOVOLOG *MILD* ALGORI... Q4 SC Last administered on 08/22/18at 05:10; Admin Dose 1 UNIT; Start 08/21/18 at 01:00 Thiamine HCl (Vitamin B1) 300 mg DAILY@0300 IM Last administered on 08/23/18at 05:28; Admin Dose 300 MG; Start 08/21/18 at 03:00; Stop 08/24/18 at 02:59 Midazolam HCl 50 ml @ 3 mls/hr TITRATE IV Last administered on 08/21/18at 05:11; Admin Dose 4 MLS/HR; Start 08/21/18 at 04:00 Influenza Virus Vaccine Quadrival (Fluzone) 0.5 ml ONCE ONCE IM* ; Start 08/24/18 at 10:00; Stop 08/24/18 at 10:01 Miscellaneous Information 1 ea NOTE XX ; Start 08/21/18 at 16:30 Glucose (Glutose) 15 gm Q15M PRN PO DECREASED GLUCOSE; Start 08/21/18 at 16:30 Glucose (Glutose) 22.5 gm Q15M PRN PO DECREASED GLUCOSE; Start 08/21/18 at 16:30 Dextrose (D50w Syringe) 25 ml Q15M PRN IV DECREASED GLUCOSE; Start 08/21/18 at 16:30 Dextrose (D50w Syringe) 50 ml Q15M PRN IV DECREASED GLUCOSE; Start 08/21/18 at 16:30 Glucagon (Glucagen) 1 mg Q15M PRN IM DECREASED GLUCOSE; Start 08/21/18 at 16:30 Glucose (Glutose) 15 gm Q15M PRN BUCCAL DECREASED GLUCOSE; Start 08/21/18 at 16:30 Fentanyl 100 ml @ 2.5 mls/hr TITRATE IV Last administered on 08/21/18at 22:48; Admin Dose 7.5 MLS/HR; Start 08/21/18 at 21:30 Bumetanide 25 mg/ Dextrose 250 ml @ 10 mls/hr Q24H IV Last administered on 08/22/18at 10:07; Admin Dose 10 MLS/HR; Start 08/22/18 at 08:30 Piperacillin Sod/ Tazobactam Sod 50 ml @ 100 mls/hr Q8 IVPB ; Start 08/23/18 at 14:00 Results Result Diagram: 08/23/18 0435 08/23/18 0435 Results 24 hrs Laboratory Tests Test 08/22/18 12:48 08/22/18 13:22 08/22/18 13:43 08/22/18 17:52 Creatine Kinase 85194 #H Blood Gas Blood arterial Specimen Source Arterial Blood 08/22/2018 1:40 Date Drawn :37 PM Arterial Blood 7.423 pH (Temp corrected ) Arterial Blood 36.6 pCO2 (Temp correct) Arterial Blood 68.7 L pO2 (Temp corrected ) Arterial Blood 23.4 HCO3 Arterial Blood -0.6 Base Excess Arterial Blood 93.2 L Oxygen Saturati on John Test ACCEPTAB Arterial Blood Right Radial Gas Puncture Site Arterial 0.3 Blood Carboxyhe moglobin Arterial Blood 0.1 Methemoglobin Blood Gas A-a 102.2 H O2 Differential Oxyhemoglobin 92.8 L Percent Blood Gas 37.0 Temperature Blood Gas 30 Actual Respiration Rat e Blood Gas VENT - CPAP Modality FiO2 30.0 Blood Gas Low 5.0 PEEP Setting Blood Gas 10 Pressure Support Blood Gas CHERELLE VANESSA Notified Whom Blood Gas 08/22/2018 1:55 Notified Time :52 PM Bedside Glucose 124 121 Test 08/22/18 19:15 08/22/18 21:13 08/23/18 01:34 08/23/18 04:35 Vancomycin 16.7 Level Trough Bedside Glucose 131 119 White Blood 17.3 H Count Red Blood Count 3.68 #L Hemoglobin 11.9 #L Hematocrit 34.6 #L Mean 94.0 Corpuscular Volume Mean 32.3 Corpuscular Hemoglobin Mean 34.4 Corpuscular Hemoglobin Conc ent Red Cell 13.7 Distribution Width Platelet Count 107 L Mean Platelet 11.5 H Volume Immature 1.600 H Granulocytes % Neutrophils % Segmented 67 Neutrophils % (Manual) Band 23 H Neutrophils % (Manual) Lymphocytes % Lymphocytes % 7 L (Manual) Monocytes % Monocytes % 3 (Manual) Eosinophils % Basophils % Nucleated Red 0.1 H Blood Cells % Immature 0.280 H Granulocytes # Neutrophils # Neutrophils # 12.3 H (Manual) Band 3.9 H Neutrophils # Lymphocytes 1.2 (Manual) Lymphocytes # Monocytes # Monocytes # 0.5 (Manual) Eosinophils # Basophils # Nucleated Red Blood Cells # Platelet DECREASED Estimate Giant Platelets 1 H Prothrombin 19.9 H Time Prothrombin 1.6 Time Ratio INR 1.65 International Normalized Rati o Activated 37.2 H Partial Thrombo plast Time Thrombin Time 19.1 Fibrinogen 501.0 #H Plasma Fibrin >80 and <160 Degradation Pro H ducts D-Dimer > 68548.00 H Sodium Level 141 Potassium Level 3.5 Chloride Level 105 Carbon Dioxide 24 Level Anion Gap 12 Blood Urea 70 H Nitrogen Creatinine 6.35 #H Est Glomerular 10 L Filtrat Rate mL/min Glucose Level 125 Calcium Level 5.5 *L Total Bilirubin 1.0 Direct 0.10 Bilirubin Indirect 0.9 Bilirubin Aspartate Amino 3433 H Transf (AST/SGO T) Alanine 2366 H Aminotransferas e (ALT/SGPT) Alkaline 71 Phosphatase Creatine Kinase 95890 #H Total Protein 4.3 L Albumin 2.2 L Globulin 2.10 Albumin/Globuli 1.04 n Ratio Test 08/23/18 04:36 08/23/18 08:59 08/23/18 10:09 Bedside Glucose 128 133 Blood Gas Blood Specimen arterial Source Arterial Blood 08/23/2018 10: Date Drawn 41:08 AM Arterial Blood 7.417 pH (Temp corrected ) Arterial Blood 33.2 L pCO2 (Temp correct) Arterial Blood 91.8 pO2 (Temp corrected ) Arterial Blood 20.9 L HCO3 Arterial Blood -2.8 Base Excess Arterial Blood 96.4 Oxygen Saturati on John Test ACCEPTAB Arterial Blood Right Radial Gas Puncture Site Arterial 0.1 Blood Carboxyhe moglobin Arterial Blood 0 Methemoglobin Blood Gas A-a 83.1 H O2 Differential Oxyhemoglobin 96.3 Percent Blood Gas 37.0 Temperature Blood Gas 35 Actual Respiration Rat e Blood Gas VENT - CPAP Modality FiO2 30.0 Blood Gas Low 5.0 PEEP Setting Blood Gas 10 Pressure Support Blood Gas TM Notified Whom Blood Gas 08/23/2018 10: Notified Time 50:43 AM BRIANNE COYLE NP Aug 23, 2018 11:29
--- NOTE | 2018-08-23 12:50 | CONS ---
Date/Time of Note Date/Time of Note DATE: 08/23/18 TIME: 12:47 Consultation Date/Type/Reason Admit Date/Time Aug 20, 2018 at 21:39 Initial Consult Date 08/21/18 Requesting Provider: QASIM BURROWS 24 HR Interval Summary Free Text/Dictation This patient was seen by my partner Dr Jamel Reyes earlier today and will need hemodialysis today because of acute renal failure Exam/Review of Systems Vital Signs Vitals Vital Signs Date Temp Pulse Resp B/P (MAP) Pulse Ox O2 O2 Flow FiO2 Time Delivery Rate 08/23/18 98.7 88 24 137/82 99 Mechanical 08:00 (100) Ventilator 08/23/18 30 08:00 Intake and Output 08/22/18 08/22/18 08/23/18 1515:00 23:00 07:00 IntakeIntake Total 1312.5 ml 1730.0 ml 1560.0 ml OutputOutput Total 40 ml 25 ml 30 ml BalanceBalance 1272.5 ml 1705.0 ml 1530.0 ml Medications Medications Current Medications Albuterol (Ventolin Hfa) 4 puff Q2H RESP THERAPY PRN INH SHORTNESS OF BREATH; Start 08/20/18 at 22:00 Ipratropium [place] (Atrovent Hfa) 4 puff Q2H RESP THERAPY PRN INH SHORTNESS OF BREATH; Start 08/20/18 at 22:00 Acetaminophen (Tylenol Liquid) 650 mg Q6H PRN PO PAIN LEVEL 1-3 OR FEVER; Start 08/20/18 at 22:00 Pantoprazole (Protonix Iv) 40 mg BID@0600,1800 IV Last administered on 08/23/18at 05:06; Admin Dose 40 MG; Start 08/20/18 at 22:00 Norepinephrine 16 mg/Dextrose 500 ml @ 1.88 mls/hr TITRATE IV Last administered on 08/21/18at 20:31; Admin Dose 9.38 MLS/HR; Start 08/21/18 at 00:00 Insulin Aspart (Novolog Insulin Pen) NOVOLOG *MILD* ALGORI... Q4 SC Last administered on 08/22/18at 05:10; Admin Dose 1 UNIT; Start 08/21/18 at 01:00 Thiamine HCl (Vitamin B1) 300 mg DAILY@0300 IM Last administered on 08/23/18at 05:28; Admin Dose 300 MG; Start 08/21/18 at 03:00; Stop 08/24/18 at 02:59 Midazolam HCl 50 ml @ 3 mls/hr TITRATE IV Last administered on 08/21/18at 05:11; Admin Dose 4 MLS/HR; Start 08/21/18 at 04:00 Influenza Virus Vaccine Quadrival (Fluzone) 0.5 ml ONCE ONCE IM* ; Start 08/24/18 at 10:00; Stop 08/24/18 at 10:01 Miscellaneous Information 1 ea NOTE XX ; Start 08/21/18 at 16:30 Glucose (Glutose) 15 gm Q15M PRN PO DECREASED GLUCOSE; Start 08/21/18 at 16:30 Glucose (Glutose) 22.5 gm Q15M PRN PO DECREASED GLUCOSE; Start 08/21/18 at 16:30 Dextrose (D50w Syringe) 25 ml Q15M PRN IV DECREASED GLUCOSE; Start 08/21/18 at 16:30 Dextrose (D50w Syringe) 50 ml Q15M PRN IV DECREASED GLUCOSE; Start 08/21/18 at 16:30 Glucagon (Glucagen) 1 mg Q15M PRN IM DECREASED GLUCOSE; Start 08/21/18 at 16:30 Glucose (Glutose) 15 gm Q15M PRN BUCCAL DECREASED GLUCOSE; Start 08/21/18 at 16:30 Fentanyl 100 ml @ 2.5 mls/hr TITRATE IV Last administered on 08/21/18at 22:48; Admin Dose 7.5 MLS/HR; Start 08/21/18 at 21:30 Bumetanide 25 mg/ Dextrose 250 ml @ 10 mls/hr Q24H IV Last administered on 08/22/18at 10:07; Admin Dose 10 MLS/HR; Start 08/22/18 at 08:30 Piperacillin Sod/ Tazobactam Sod 50 ml @ 100 mls/hr Q8 IVPB ; Start 08/23/18 at 14:00 Results Result Diagram: 08/23/18 0435 08/23/18 0435 Results 24 hrs Laboratory Tests Test 08/22/18 12:48 08/22/18 13:22 08/22/18 13:43 08/22/18 17:52 Creatine Kinase 35217 #H Blood Gas Blood arterial Specimen Source Arterial Blood 08/22/2018 1:40 Date Drawn :37 PM Arterial Blood 7.423 pH (Temp corrected ) Arterial Blood 36.6 pCO2 (Temp correct) Arterial Blood 68.7 L pO2 (Temp corrected ) Arterial Blood 23.4 HCO3 Arterial Blood -0.6 Base Excess Arterial Blood 93.2 L Oxygen Saturati on John Test ACCEPTAB Arterial Blood Right Radial Gas Puncture Site Arterial 0.3 Blood Carboxyhe moglobin Arterial Blood 0.1 Methemoglobin Blood Gas A-a 102.2 H O2 Differential Oxyhemoglobin 92.8 L Percent Blood Gas 37.0 Temperature Blood Gas 30 Actual Respiration Rat e Blood Gas VENT - CPAP Modality FiO2 30.0 Blood Gas Low 5.0 PEEP Setting Blood Gas 10 Pressure Support Blood Gas CHERELLE RT Notified Whom Blood Gas 08/22/2018 1:55 Notified Time :52 PM Bedside Glucose 124 121 Test 08/22/18 19:15 08/22/18 21:13 08/23/18 01:34 08/23/18 04:35 Vancomycin 16.7 Level Trough Bedside Glucose 131 119 White Blood 17.3 H Count Red Blood Count 3.68 #L Hemoglobin 11.9 #L Hematocrit 34.6 #L Mean 94.0 Corpuscular Volume Mean 32.3 Corpuscular Hemoglobin Mean 34.4 Corpuscular Hemoglobin Conc ent Red Cell 13.7 Distribution Width Platelet Count 107 L Mean Platelet 11.5 H Volume Immature 1.600 H Granulocytes % Neutrophils % Segmented 67 Neutrophils % (Manual) Band 23 H Neutrophils % (Manual) Lymphocytes % Lymphocytes % 7 L (Manual) Monocytes % Monocytes % 3 (Manual) Eosinophils % Basophils % Nucleated Red 0.1 H Blood Cells % Immature 0.280 H Granulocytes # Neutrophils # Neutrophils # 12.3 H (Manual) Band 3.9 H Neutrophils # Lymphocytes 1.2 (Manual) Lymphocytes # Monocytes # Monocytes # 0.5 (Manual) Eosinophils # Basophils # Nucleated Red Blood Cells # Platelet DECREASED Estimate Giant Platelets 1 H Prothrombin 19.9 H Time Prothrombin 1.6 Time Ratio INR 1.65 International Normalized Rati o Activated 37.2 H Partial Thrombo plast Time Thrombin Time 19.1 Fibrinogen 501.0 #H Plasma Fibrin >80 and <160 Degradation Pro H ducts D-Dimer > 14403.00 H Sodium Level 141 Potassium Level 3.5 Chloride Level 105 Carbon Dioxide 24 Level Anion Gap 12 Blood Urea 70 H Nitrogen Creatinine 6.35 #H Est Glomerular 10 L Filtrat Rate mL/min Glucose Level 125 Calcium Level 5.5 *L Total Bilirubin 1.0 Direct 0.10 Bilirubin Indirect 0.9 Bilirubin Aspartate Amino 3433 H Transf (AST/SGO T) Alanine 2366 H Aminotransferas e (ALT/SGPT) Alkaline 71 Phosphatase Creatine Kinase 89888 #H Total Protein 4.3 L Albumin 2.2 L Globulin 2.10 Albumin/Globuli 1.04 n Ratio Test 08/23/18 04:36 08/23/18 08:59 08/23/18 10:09 Bedside Glucose 128 133 Blood Gas Blood Specimen arterial Source Arterial Blood 08/23/2018 10: Date Drawn 41:08 AM Arterial Blood 7.417 pH (Temp corrected ) Arterial Blood 33.2 L pCO2 (Temp correct) Arterial Blood 91.8 pO2 (Temp corrected ) Arterial Blood 20.9 L HCO3 Arterial Blood -2.8 Base Excess Arterial Blood 96.4 Oxygen Saturati on John Test ACCEPTAB Arterial Blood Right Radial Gas Puncture Site Arterial 0.1 Blood Carboxyhe moglobin Arterial Blood 0 Methemoglobin Blood Gas A-a 83.1 H O2 Differential Oxyhemoglobin 96.3 Percent Blood Gas 37.0 Temperature Blood Gas 35 Actual Respiration Rat e Blood Gas VENT - CPAP Modality FiO2 30.0 Blood Gas Low 5.0 PEEP Setting Blood Gas 10 Pressure Support Blood Gas TM Notified Whom Blood Gas 08/23/2018 10: Notified Time 50:43 AM THIAGO BRANDT MD Aug 23, 2018 12:50
--- NOTE | 2018-08-23 14:01 | CONS ---
Date/Time of Note Date/Time of Note DATE: 08/23/18 TIME: 13:59 Assessment/Plan Assessment/Plan Additional Assessment/Plan Acute respiratory failure Low normal left ventricular ejection fraction 50% Sepsis Acute kidney injury Myocardial infarction, likely type II Liver dysfunction Illicit drug use -Troponins elevated and trending down, likely secondary to demand ischemia. No aspirin therapy at the current time given progressive thrombocytopenia. No statin given abnormal LFTs. Blood pressure on the higher side, would start beta-kishan. Consultation Date/Type/Reason Admit Date/Time Aug 20, 2018 at 21:39 Initial Consult Date 08/21/18 Type of Consult cv Requesting Provider: QASIM BURROWS 24 HR Interval Summary Free Text/Dictation Patient seen and examined. Undergoing hemodialysis Exam/Review of Systems Vital Signs Vitals Vital Signs Date Temp Pulse Resp B/P (MAP) Pulse Ox O2 O2 Flow FiO2 Time Delivery Rate 08/23/18 91 23 150/90 99 Mechanical 13:12 (110) Ventilator 08/23/18 98.7 08:00 08/23/18 30 08:00 Intake and Output 08/22/18 08/22/18 08/23/18 1515:00 23:00 07:00 IntakeIntake Total 1312.5 ml 1730.0 ml 1560.0 ml OutputOutput Total 40 ml 25 ml 30 ml BalanceBalance 1272.5 ml 1705.0 ml 1530.0 ml Exam Intubated, no apparent distress, undergoing hemodialysis Head: normocephalic ENMT: intubated Respiratory: other (Coarse breath sounds bilaterally, no wheezing) Cardiovascular: regular rate and rhythm, other (S1-S2 heard) Gastrointestinal: soft, non-tender, bowel sounds Extremities: edema Medications Medications Current Medications Albuterol (Ventolin Hfa) 4 puff Q2H RESP THERAPY PRN INH SHORTNESS OF BREATH; Start 08/20/18 at 22:00 Ipratropium [place] (Atrovent Hfa) 4 puff Q2H RESP THERAPY PRN INH SHORTNESS OF BREATH; Start 08/20/18 at 22:00 Acetaminophen (Tylenol Liquid) 650 mg Q6H PRN PO PAIN LEVEL 1-3 OR FEVER; Start 08/20/18 at 22:00 Pantoprazole (Protonix Iv) 40 mg BID@0600,1800 IV Last administered on 08/23/18at 05:06; Admin Dose 40 MG; Start 08/20/18 at 22:00 Norepinephrine 16 mg/Dextrose 500 ml @ 1.88 mls/hr TITRATE IV Last administered on 08/21/18at 20:31; Admin Dose 9.38 MLS/HR; Start 08/21/18 at 00:00 Insulin Aspart (Novolog Insulin Pen) NOVOLOG *MILD* ALGORI... Q4 SC Last administered on 08/22/18at 05:10; Admin Dose 1 UNIT; Start 08/21/18 at 01:00 Thiamine HCl (Vitamin B1) 300 mg DAILY@0300 IM Last administered on 08/23/18at 05:28; Admin Dose 300 MG; Start 08/21/18 at 03:00; Stop 08/24/18 at 02:59 Midazolam HCl 50 ml @ 3 mls/hr TITRATE IV Last administered on 08/21/18at 05:11; Admin Dose 4 MLS/HR; Start 08/21/18 at 04:00 Influenza Virus Vaccine Quadrival (Fluzone) 0.5 ml ONCE ONCE IM* ; Start 08/24/18 at 10:00; Stop 08/24/18 at 10:01 Miscellaneous Information 1 ea NOTE XX ; Start 08/21/18 at 16:30 Glucose (Glutose) 15 gm Q15M PRN PO DECREASED GLUCOSE; Start 08/21/18 at 16:30 Glucose (Glutose) 22.5 gm Q15M PRN PO DECREASED GLUCOSE; Start 08/21/18 at 16:30 Dextrose (D50w Syringe) 25 ml Q15M PRN IV DECREASED GLUCOSE; Start 08/21/18 at 16:30 Dextrose (D50w Syringe) 50 ml Q15M PRN IV DECREASED GLUCOSE; Start 08/21/18 at 16:30 Glucagon (Glucagen) 1 mg Q15M PRN IM DECREASED GLUCOSE; Start 08/21/18 at 16:30 Glucose (Glutose) 15 gm Q15M PRN BUCCAL DECREASED GLUCOSE; Start 08/21/18 at 16:30 Fentanyl 100 ml @ 2.5 mls/hr TITRATE IV Last administered on 08/21/18at 22:48; Admin Dose 7.5 MLS/HR; Start 08/21/18 at 21:30 Bumetanide 25 mg/ Dextrose 250 ml @ 10 mls/hr Q24H IV Last administered on 08/22/18at 10:07; Admin Dose 10 MLS/HR; Start 08/22/18 at 08:30 Piperacillin Sod/ Tazobactam Sod 50 ml @ 100 mls/hr Q8 IVPB ; Start 08/23/18 at 14:00 Heparin Sodium (Porcine) (Heparin (1000 Units/ml)) 3,000 unit AFTER DIALYSIS CATHETER ; Start 08/23/18 at 13:30 Results Result Diagram: 08/23/18 0435 08/23/18 0435 Results 24 hrs Laboratory Tests Test 08/22/18 17:52 08/22/18 19:15 08/22/18 21:13 08/23/18 01:34 Bedside Glucose 121 131 119 Vancomycin 16.7 Level Trough Test 08/23/18 04:35 08/23/18 04:36 08/23/18 08:59 08/23/18 10:09 White Blood 17.3 H Count Red Blood Count 3.68 #L Hemoglobin 11.9 #L Hematocrit 34.6 #L Mean 94.0 Corpuscular Volume Mean 32.3 Corpuscular Hemoglobin Mean 34.4 Corpuscular Hemoglobin Conc ent Red Cell 13.7 Distribution Width Platelet Count 107 L Mean Platelet 11.5 H Volume Immature 1.600 H Granulocytes % Neutrophils % Segmented 67 Neutrophils % (Manual) Band 23 H Neutrophils % (Manual) Lymphocytes % Lymphocytes % 7 L (Manual) Monocytes % Monocytes % 3 (Manual) Eosinophils % Basophils % Nucleated Red 0.1 H Blood Cells % Immature 0.280 H Granulocytes # Neutrophils # Neutrophils # 12.3 H (Manual) Band 3.9 H Neutrophils # Lymphocytes 1.2 (Manual) Lymphocytes # Monocytes # Monocytes # 0.5 (Manual) Eosinophils # Basophils # Nucleated Red Blood Cells # Platelet DECREASED Estimate Giant Platelets 1 H Prothrombin 19.9 H Time Prothrombin 1.6 Time Ratio INR 1.65 International Normalized Rati o Activated 37.2 H Partial Thrombo plast Time Thrombin Time 19.1 Fibrinogen 501.0 #H Plasma Fibrin >80 and <160 Degradation Pro H ducts D-Dimer > 59527.00 H Sodium Level 141 Potassium Level 3.5 Chloride Level 105 Carbon Dioxide 24 Level Anion Gap 12 Blood Urea 70 H Nitrogen Creatinine 6.35 #H Est Glomerular 10 L Filtrat Rate mL/min Glucose Level 125 Calcium Level 5.5 *L Total Bilirubin 1.0 Direct 0.10 Bilirubin Indirect 0.9 Bilirubin Aspartate Amino 3433 H Transf (AST/SGO T) Alanine 2366 H Aminotransferas e (ALT/SGPT) Alkaline 71 Phosphatase Creatine Kinase 38597 #H Total Protein 4.3 L Albumin 2.2 L Globulin 2.10 Albumin/Globuli 1.04 n Ratio Bedside Glucose 128 133 Blood Gas Blood Specimen arterial Source Arterial Blood 08/23/2018 10: Date Drawn 41:08 AM Arterial Blood 7.417 pH (Temp corrected ) Arterial Blood 33.2 L pCO2 (Temp correct) Arterial Blood 91.8 pO2 (Temp corrected ) Arterial Blood 20.9 L HCO3 Arterial Blood -2.8 Base Excess Arterial Blood 96.4 Oxygen Saturati on John Test ACCEPTAB Arterial Blood Right Radial Gas Puncture Site Arterial 0.1 Blood Carboxyhe moglobin Arterial Blood 0 Methemoglobin Blood Gas A-a 83.1 H O2 Differential Oxyhemoglobin 96.3 Percent Blood Gas 37.0 Temperature Blood Gas 35 Actual Respiration Rat e Blood Gas VENT - CPAP Modality FiO2 30.0 Blood Gas Low 5.0 PEEP Setting Blood Gas 10 Pressure Support Blood Gas TM Notified Whom Blood Gas 08/23/2018 10: Notified Time 50:43 AM Kana Phoenix DO Aug 23, 2018 14:01
[2018-08-23] MEDS: HEPARIN 1000 UNITS/ML 10 ML INJ CATHETER SCH (15:51)
[2018-08-23] MEDS: BUMETANIDE 25 MG in DEXTROSE 5% 150 ML IV SCH (16:46)
[2018-08-23] MEDS: PIPER-TAZO 2.25 GM (PMX) 50 ML IVPB SCH ×2 (16:51→21:44)
[2018-08-23] MEDS ORDERED: RACEPINEPHRINE 2.25%(NEB) 0.5 ML AMP ONE (16:52)
[2018-08-23] MEDS ORDERED: RACEPINEPHRINE 2.25%(NEB) 0.5 ML AMP HHN PRN (17:00)
[2018-08-23] MEDS: METOPROLOL 25 MG TAB PO SCH (21:44)
[2018-08-24] VITALS (24 sets, daily range): BP systolic 123–154; BP diastolic 71–90; PULSE 44–103; RESP 18–36
[2018-08-24] MEDS: INSULIN ASPART [NOVOLOG] 3 ML PEN SC SCH ×6 (01:00→21:10)
[2018-08-24] MEDS: PIPER-TAZO 2.25 GM (PMX) 50 ML IVPB SCH ×3 (06:03→21:07)
[2018-08-24] MEDS: PANTOPRAZOLE 40 MG INJ IV SCH (06:03)
--- NOTE | 2018-08-24 07:46 | CONS ---
Date/Time of Note Date/Time of Note DATE: 08/24/18 TIME: 07:43 Assessment/Plan Assessment/Plan Additional Assessment/Plan 1. Acute renal failure sec to rhabdo without recovery, will plan on HD tomm, remains oligo-anuric 2. BP is stable 3. Anemia is stable. 4. Cognitive impairment, will need to observe 5. Respir failure, extubated yesterday . Consultation Date/Type/Reason Admit Date/Time Aug 20, 2018 at 21:39 Initial Consult Date 08/21/18 Requesting Provider: QASIM BURROWS 24 HR Interval Summary Subjective hx not possible: other (Extubated yesterday afternoon, does not r espond to simple questions, RN indicates he was alert earlier) Exam/Review of Systems Vital Signs Vitals Vital Signs Date Temp Pulse Resp B/P (MAP) Pulse Ox O2 O2 Flow FiO2 Time Delivery Rate 08/24/18 100 26 148/74 95 Nasal 06:00 (98) Cannula 08/24/18 99.7 04:00 08/24/18 3.0 03:15 08/23/18 30 14:00 Intake and Output 08/23/18 08/23/18 08/24/18 1515:00 23:00 07:00 IntakeIntake Total 1562.5 ml 130 ml 310 ml OutputOutput Total 23 ml 2939 ml 27 ml BalanceBalance 1539.5 ml -2809 ml 283 ml Exam Neck: No jvd Respiratory: clear to auscultation, diminished breath sounds Cardiovascular: regular rate and rhythm Gastrointestinal: soft Extremities: No edema (trace pedal anb sacral) MAXIMO TAY MD Aug 24, 2018 07:46
--- NOTE | 2018-08-24 08:53 | CONS ---
Date/Time of Note Date/Time of Note DATE: 08/24/18 TIME: 08:49 Assessment/Plan Assessment/Plan Additional Assessment/Plan Assessment recommendations; 1. Patient admitted with respiratory failure as well as acute renal failure with profound metabolic acidosis status post hemodialysis with marked overall interval improvement. 2. History of drug abuse. 3. Possibly chronic renal insufficiency with acute compensation. 4. Thrombocytopenia. 5. History of hypertension. 6. Persistent leukocytosis, possibly stress response. No obvious source of infection. Continue current supportive care. Further recommendations per ID store sales consultant as well as head control clerk. Patient be transferred to medical floor. Consultation Date/Type/Reason Admit Date/Time Aug 20, 2018 at 21:39 Initial Consult Date 08/21/18 Type of Consult Pulmonary/critical care History presenting illness; Patient is a 33-year-old male who was brought into the emergency room after he was found unresponsive at a sidewalk, patient however did not require any CPR performed and had spontaneous pulse and respirations. Patient be diagnosed with severe sepsis as well as acute renal failure and shock liver. By the time I saw the patient I saw, patient is orally intubated and sedated. Past medical history; 1. History of substance abuse. Medications; reviewed. Patient is currently on Versed 2 mg/h, Levophed 80 mics per minute. Patient also is on adequate fluid resuscitation. Other medications were reviewed in detail. Allergies; not available. Social history; drug abuse. Family history and occupational history not available. REVIEW of system; unable to be obtained. General exam; young male, orally intubated, sedated, currently in no distress. Requesting Provider: QASIM BURROWS 24 HR Interval Summary Free Text/Dictation Patient's condition is markedly improved. Patient was successfully afebrile yesterday. Has maintained stable hemodynamics and pulmonary status. Denies any shortness of, chest pain, coughing, wheezing. General exam; young male, awake alert, currently no distress. Exam/Review of Systems Vital Signs Vitals Vital Signs Date Temp Pulse Resp B/P (MAP) Pulse Ox O2 O2 Flow FiO2 Time Delivery Rate 08/24/18 100 26 148/74 95 Nasal 06:00 (98) Cannula 08/24/18 99.7 04:00 08/24/18 3.0 03:15 08/23/18 30 14:00 Intake and Output 08/23/18 08/23/18 08/24/18 1515:00 23:00 07:00 IntakeIntake Total 1562.5 ml 130 ml 310 ml OutputOutput Total 23 ml 2939 ml 27 ml BalanceBalance 1539.5 ml -2809 ml 283 ml Exam HEENT exam; supple neck, no JVD. No lymphadenopathy. Midline trachea. No thyromegaly. Patient has fair dentition. Nasogastric tube in place. Chest exam; clear to auscultation. S1-S2 audible, no murmurs. Regular rhythm. Abdomen exam; soft, no organomegaly. Nontender. Bowel sounds audible. Extremity exam; no edema or clubbing. Pulses 1+. SECTION HOUSEKEEPER exam; no focal deficit. BERNARD SINGH Aug 24, 2018 08:53
[2018-08-24] MEDS ORDERED: INFLUENZA VIRUS VACCINE 0.5 ML (DISPENSING) IM* ONE (10:00)
[2018-08-24] MEDS: METOPROLOL 25 MG TAB PO SCH ×2 (10:03→20:58)
--- NOTE | 2018-08-24 10:16 | PN ---
Date/Time of Note Date/Time of Note DATE: 08/24/18 TIME: 10:08 Assessment/Plan VTE Prophylaxis Risk score (from Ns)>0 risk: 4 SCD applied (from Nsg): Yes Pharmacological prophylaxis: other Lines/Catheters IV Catheter Type (from Nrsg): Saurabh Urinary Cath still in place: Yes Reason Cath still needed: urinary retention Assessment/Plan Hospital Course S: Patient still intubated. Seen by renal team pulmonary teams this morning. Apparently did not get dialysis yesterday. Presently still on saline and Bumex IV. O: VS - see below PE: Gen: Lying in bed, intubated. Eyes: Unable to fully assess at this time HEENT: ET tube in place, moist mucous membranes, Card: Regular rate and rhythm no murmurs Pulm: Mechanical breath sounds bilaterally, no crackes. Abd: Soft, nondistended. Ext: No cyanosis/clubbing/edema Skin: Large fluid-filled bulla R medial thigh. : Suh in place with minimal urine output. Assessment/Plan: 33 yo man brought in found down with subsequent JULIAN secondary to rhabdomyolysis; positive for alcohol, methamphetamine, cannabis, opioids as well. #JULIAN- Oliguric renal failure with hyperkalemia (after potassium replacement), also presented with severe metabolic acidosis- Likely due to a combination of rhabdo and drug use. -Patient will need dialysis, did not get yesterday,, for now per renal recommendations continue Bumex with D5, monitor creatinine levels and urine output, this is very minimal at this time. -Likely will start dialysis tomorrow, follow renal recommendations # acute ventilatory dependent respiratory failure-likely secondary to polysubstance overdose resulting in multiorgan dysfunction; patient had subsequent severe metabolic acidosis with inadequate respiratory compensation- CXR also with evidence of possible infiltrate or vascular congestion. -For now continue zosyn for possible community-acquired pneumonia. -Follow-up pulmonary recommendations, again for possible CPAP trial # Acute encephalopathy: - From polysubstance abuse. Currently sedated on Versed as well. -Monitor # Elevated troponin-appears stable- CV Dr. Nj consulted. Likely demand ischemia from drug use. - Will not treat per NSTEMI protocol, follow-up cardiology recommendations # transaminitis: - May be from shock liver or drug use.- Hep B, Hep C negative. -Continue to monitor LFTs # Rhabdomyolysis: - Secondary to patient found down as well as polysubstance ab use - again now requiring dialysis. -Monitor CK levels, still overall elevated but have been slowly trending down the last 24-48 hours # Coagulopathy- May be due to liver and renal injury as well as drug use- No DIC - Will watch closely # polysubstance abuse - Again patient was found to be positive for opioids, methamphetamine, marijuana and an elevated blood alcohol level. -Ordered for thiamine 300 mg IM daily times 3 days, further treatment as per the clinical course # DVT and GI prophylaxis: Protonix twice daily Social work consulted for next of kin; after very diligent search no one has been found yet. Critical care time spent on patient care today equals 40 minutes. Exam/Review of Systems Vital Signs Vitals Vital Signs Date Temp Pulse Resp B/P (MAP) Pulse Ox O2 O2 Flow FiO2 Time Delivery Rate 08/24/18 101 36 141/80 96 Nasal 3.0 09:00 (100) Cannula 08/24/18 99.3 08:00 08/23/18 30 14:00 Intake and Output 08/23/18 08/23/18 08/24/18 1515:00 23:00 07:00 IntakeIntake Total 1562.5 ml 130 ml 350 ml OutputOutput Total 23 ml 2939 ml 30 ml BalanceBalance 1539.5 ml -2809 ml 320 ml CINTIA ESPINOSA Aug 24, 2018 10:16
--- NOTE | 2018-08-24 15:12 | CONS ---
Date/Time of Note Date/Time of Note DATE: 08/24/18 TIME: 15:11 Assessment/Plan Assessment/Plan Chief Complaint/Hosp Course No acute events patient was extubated this morning he is awake looks comfortable no fevers overnight WBC 16.5 H&H 11.4 and 32.9 platelets 103 neutrophils 82 Indwelling's: NG tube, right IJ triple-lumen catheter, Suh catheter, right femoral Saurabh Microbiologist cultures had been negative, sputum culture pending Antimicrobials: Patriciasyn Physical examination: Well-nourished well-developed middle-aged man who is in no distress. Head atraumatic normocephalic sclera nonicteric. Neck is supple chest rise symmetrical breath sounds diminished bases. Heart: S1-S2, tachycardic. Abdomen soft bowel sounds present. Extremities with bilateral edema Assessment: 1. Resolving sepsis status post shock 2. Acute encephalopathy, resolving 3. Acute hypoxemic respiratory failure 4. Pneumonia possibly aspirated 5. Pulmonary edema 6. Acute renal failure, on hemodialysis 7. Transaminitis, possibly shock liver 8. Polysubstance abuse Plan: Remains stable post extubation, continue present care, aspiration precautions, hemodialysis per renal Consultation Date/Type/Reason Admit Date/Time Aug 20, 2018 at 21:39 Initial Consult Date 08/21/18 Type of Consult id Requesting Provider: QASIM BURROWS Exam/Review of Systems Vital Signs Vitals Vital Signs Date Temp Pulse Resp B/P (MAP) Pulse Ox O2 O2 Flow FiO2 Time Delivery Rate 08/24/18 92 12:00 08/24/18 36 141/80 96 Nasal 3.0 09:00 (100) Cannula 08/24/18 99.3 08:00 08/23/18 30 14:00 Intake and Output 08/23/18 08/23/18 08/24/18 1515:00 23:00 07:00 IntakeIntake Total 1562.5 ml 130 ml 350 ml OutputOutput Total 23 ml 2939 ml 30 ml BalanceBalance 1539.5 ml -2809 ml 320 ml BRIANNE COYLE NP Aug 24, 2018 15:12
--- NOTE | 2018-08-24 17:34 | PN ---
DATE: 08/24/2018 SUBJECTIVE: The patient is lethargic. He does not arouse to stimuli. PHYSICAL EXAMINATION: VITAL SIGNS: Temperature 99.8 orally, pulse 97 and regular, respirations 24, blood pressure 135/75, pulse oximetry 91% on 3 L of oxygen by nasal cannula. SKIN: No ecchymosis. No petechiae or rashes. HEENT: Normocephalic. No evidence of trauma. Pupils equal, round, reactive to light and accommodat ion. There is no scleral icterus. There is a nasogastric tube in place through which tube feeding i s infusing. NECK: Supple. No jugular venous distention. No thyroid enlargement. CHEST: Clear to auscultation and percussion. No rhonchi, wheezes, rales, or rubs. HEART: Regular sinus rhythm. No S3, S4, or murmurs heard. ABDOMEN: Minimally distended and somewhat tense. There is no rebound tenderness. There is no succu ssion splash. Bowel sounds are decreased, however. Tube feeding is infusing at 30 mL per hour. EXTREMITIES: No clubbing. No edema or cyanosis. No palpable cords or Homans sign. NEUROLOGIC: Reveals no focal neurologic abnormalities. LABORATORY DATA: White count 16,500 with absolute neutrophil count of 13,800, hemoglobin 11.4, hemat ocrit 32.9, platelet count 103,000. Protime 17.5 seconds, INR 1.41, PTT 33.7 seconds, fibrinogen is 583. Sodium 142, potassium 3.5, creatinine 6.82, BUN 66, total bilirubin 0.9, direct bilirubin 0, ALT 1853 , alkaline phosphatase 94, CK 22,767. ASSESSMENT: 1. Respiratory failure, possibly secondary to drug overdose, resolved. 2. Metabolic acidosis with renal failure. 3. Rhabdomyolysis. 4. Transaminitis, likely due to hypoperfusion of the liver. 5. Coagulopathy, resolved. The patient is stable. There is no unusual bleeding. The patient does not require any blood product s at this time. Transaminitis is slowly improving. CK is still markedly elevated, but has decreased as well. No new recommendations at this time from a hematologic standpoint. Dictated By: MAKAYLA GOLDSTEIN MD, SR/ZACK Conf#: [id number] DID#: [id number] CC: QASIM BURROWS MD;*[facility]*
[2018-08-24] MEDS: LANSOPRAZOLE 30 MG CAP GTB SCH (18:09)
[2018-08-24] MEDS: BUMETANIDE 25 MG in DEXTROSE 5% 150 ML IV SCH (19:53)
[2018-08-25] VITALS (32 sets, daily range): BP systolic 120–144; BP diastolic 66–82; PULSE 74–94; RESP 19–48
[2018-08-25] MEDS: INSULIN ASPART [NOVOLOG] 3 ML PEN SC SCH ×6 (02:03→21:00)
[2018-08-25] MEDS: PIPER-TAZO 2.25 GM (PMX) 50 ML IVPB SCH ×3 (05:58→21:38)
[2018-08-25] MEDS: LANSOPRAZOLE 30 MG CAP GTB SCH ×2 (05:58→17:29)
--- NOTE | 2018-08-25 07:23 | CONS ---
Date/Time of Note Date/Time of Note DATE: 08/25/18 TIME: 07:19 Assessment/Plan Assessment/Plan Chief Complaint/Hosp Course Remains with ARF, transaminitis... coagulopathy much improved...... still anuric despite Bumex drip Problems: (1) Acute renal failure Status: Acute Comment: for Dialysis today.. d/c bumex drip as ineffective Qualifiers: Acute renal failure type: unspecified Qualified Codes: N17.9 - Acute kidney failure, unspecified (2) Coagulopathy Status: Acute Comment: resolving as starts to recover (3) Polysubstance abuse Status: Acute (4) Acute encephalopathy Status: Acute (5) Rhabdomyolysis Comment: w anuric ARF,,, CK now approaching 10K, w slow resolution (6) Hypocalcemia Comment: resolved... watch for hyper- if gets renal recovery Consultation Date/Type/Reason Admit Date/Time Aug 20, 2018 at 21:39 Initial Consult Date Type of Consult Nephrology Requesting Provider: QASIM BURROWS 24 HR Interval Summary Free Text/Dictation extubated...slow to respond Exam/Review of Systems Vital Signs Vitals Vital Signs Date Temp Pulse Resp B/P (MAP) Pulse Ox O2 O2 Flow FiO2 Time Delivery Rate 08/25/18 85 25 131/73 93 Nasal 3.0 06:00 (92) Cannula 08/25/18 99.6 04:00 08/24/18 21 20:11 Intake and Output 08/24/18 08/24/18 08/25/18 1515:00 23:00 07:00 IntakeIntake Total 320 ml 610 ml 190 ml OutputOutput Total 24 ml 28 ml 28 ml BalanceBalance 296 ml 582 ml 162 ml Exam Head: normocephalic Eyes: nl conjunctiva Neck: supple Respiratory: clear to auscultation Cardiovascular: regular rate and rhythm Gastrointestinal: soft, nl liver, spleen Extremities: normal pulses, pitting pedal edema (1+) SHAMAR PARKS MD Aug 25, 2018 07:23
[2018-08-25] MEDS: METOPROLOL 25 MG TAB PO SCH ×2 (08:56→21:39)
--- NOTE | 2018-08-25 09:00 | CONS ---
Date/Time of Note Date/Time of Note DATE: 08/25/18 TIME: 08:58 Assessment/Plan Assessment/Plan Additional Assessment/Plan Assessment and recommendations; 1. Patient admitted with severe metabolic acidosis and respiratory failure with acute renal failure, patient markedly improved overall. Extubated 2 days ago with stable clinical status. 2. Shock liver with improving transaminases. 3. Sepsis of unknown etiology and source, however on current antimicrobial regimen patient exhibiting improving leukocytosis. 4. History of drug abuse. 5. Possibly chronic renal insufficiency. With acute worsening. 6. Anemia and thrombocytopenia. Continue current supportive care. Hemodialysis per supervisor painting. Antibiotics per ID recommendations. Consider transfer to medical floor. Consultation Date/Type/Reason Admit Date/Time Aug 20, 2018 at 21:39 Initial Consult Date 08/21/18 Type of Consult Pulmonary/critical care History presenting illness; Patient is a 33-year-old male who was brought into the emergency room after he was found unresponsive at a sidewalk, patient however did not require any CPR performed and had spontaneous pulse and respirations. Patient be diagnosed with severe sepsis as well as acute renal failure and shock liver. By the time I saw the patient I saw, patient is orally intubated and sedated. Past medical history; 1. History of substance abuse. Medications; reviewed. Patient is currently on Versed 2 mg/h, Levophed 80 mics per minute. Patient also is on adequate fluid resuscitation. Other medications were reviewed in detail. Allergies; not available. Social history; drug abuse. Family history and occupational history not available. REVIEW of system; unable to be obtained. General exam; young male, orally intubated, sedated, currently in no distress. Requesting Provider: QASIM BURROWS 24 HR Interval Summary Free Text/Dictation Patient's condition is stable. Remains awake and fairly alert. Has remained hemodynamically stable. Denies any shortness of breath, chest pain, fever, chills. General exam; young male, awake alert, currently in no distress. Exam/Review of Systems Vital Signs Vitals Vital Signs Date Temp Pulse Resp B/P (MAP) Pulse Ox O2 O2 Flow FiO2 Time Delivery Rate 08/25/18 98.4 89 20 134/74 95 Nasal 2.0 08:00 (94) Cannula 08/24/18 21 20:11 Intake and Output 08/24/18 08/24/18 08/25/18 1515:00 23:00 07:00 IntakeIntake Total 320 ml 610 ml 190 ml OutputOutput Total 24 ml 28 ml 28 ml BalanceBalance 296 ml 582 ml 162 ml Exam H EENT exam; supple neck, no JVD. No lymphadenopathy. Midline trachea. No thyromegaly. Patient has fair dentition. No neck masses. Pupils are small bilaterally. Chest exam; diminished but clear breath sounds. S1-S2 audible, no murmurs. Regular rhythm. Abdomen exam; soft, nontender. No organomegaly. Bowel sounds audible. Extremity exam; no edema or clubbing. In lower extremities. Upper extremities reveal 1+ pitting edema. RETAIL SECURITY PROFESSIONAL exam; no focal deficit. BERNARD SINGH Aug 25, 2018 09:00
--- NOTE | 2018-08-25 10:37 | PN ---
Date/Time of Note Date/Time of Note DATE: 08/25/18 TIME: 10:26 Assessment/Plan VTE Prophylaxis Risk score (from Ns)>0 risk: 9 SCD applied (from Nsg): Yes Pharmacological prophylaxis: other Lines/Catheters IV Catheter Type (from Nrsg): Saurabh Urinary Cath still in place: Yes Reason Cath still needed: urinary retention Assessment/Plan Hospital Course S: Patient seen by speech therapy, renal, and pulmonary teams this morning. Presently getting another dialysis session. O: VS - see below PE: Gen: Lying in bed, no acute distress Eyes: Pupils equal round reactive to light, extraocular muscles intact HEENT: ET tube in place, moist mucous membranes, Card: Regular rate and rhythm no murmurs Pulm: Mechanical breath sounds bilaterally, no crackles. Abd: Soft, nondistended. Ext: No cyanosis/clubbing/edema Skin: Large fluid-filled bulla R medial thigh. : Suh in place with minimal urine output. Assessment/Plan: 33 yo man brought in found down with subsequent JULIAN secondary to rhabdomyolysis; positive for alcohol, methamphetamine, cannabis, opioids as well. #JULIAN- Oliguric renal failure with hyperkalemia (after potassium replacement), also presented with severe metabolic acidosis- Likely due to a combination of rhabdo and drug use. CK level still quite elevated, but trending down now -Continue dialysis per renal recommendations, as well an order was placed early this morning to stop Bumex drip -follow up renal recommendations # acute ventilatory dependent respiratory failure-again extubated 2 days ago, was likely secondary to polysubstance overdose resulting in multiorgan dysfunction; patient had subsequent severe metabolic acidosis with inadequate respiratory compensation- CXR also with evidence of possible infiltrate or vascular congestion. -For now continue zosyn for possible community-acquired pneumonia. -Follow-up pulmonary recommendations # Acute encephalopathy: -Slowly improving, from polysubstance abuse-no present signs of withdrawal -Monitor # Elevated troponin-appears stable- CV Dr. Nj consulted earlier this admission. Likely demand ischemia from drug use. - Will not treat per NSTEMI protocol, monitor, follow-up cardiology recommendations # transaminitis: - May be from shock liver or drug use.- Hep B, Hep C negative. LFTs have been slowly trending down over the last 1-2 days, still elevated overall -Continue to monitor LFTs # Rhabdomyolysis: -See above secondary to patient found down as well as polysubstance abuse - again now requiring dialysis. Again CK levels still overall quite elevated, but trending down -Monitor CK levels, # Coagulopathy- May be due to liver and renal injury as well as drug use- No DIC - Will watch closely, monitor CBC, follow-up hematology oncology recommendation # polysubstance abuse - Again patient was found to be positive for opioids, methamphetamine, marijuana and an elevated blood alcohol level. -Ordered for thiamine 300 mg IM daily times 3 days, further treatment as per the clinical course # DVT and GI prophylaxis: Protonix twice daily Social work consulted for next of kin; after very diligent search no one has been found yet. Critical care time spent on patient care today equals 45 minutes. Exam/Review of Systems Vital Signs Vitals Vital Signs Date Temp Pulse Resp B/P (MAP) Pulse Ox O2 O2 Flow FiO2 Time Delivery Rate 08/25/18 91 28 144/77 95 10:00 (99) 08/25/18 Nasal 2.0 08:00 Cannula 08/25/18 98.4 08:00 08/24/18 21 20:11 Intake and Output 08/24/18 08/24/18 08/25/18 1515:00 23:00 07:00 IntakeIntake Total 320 ml 610 ml 190 ml OutputOutput Total 24 ml 28 ml 28 ml BalanceBalance 296 ml 582 ml 162 ml CINTIA ESPINOSA Aug 25, 2018 10:36
--- NOTE | 2018-08-25 11:54 | CONS ---
Date/Time of Note Date/Time of Note DATE: 08/25/18 TIME: 11:53 Assessment/Plan Assessment/Plan Chief Complaint/Hosp Course No acute events overnight patient is lying comfortably in bed he is currently in hemodialysis no fevers overnight tolerates tube feedings. T-max 99.8 yesterday to current 98.4 pulse 77 respirations 18 blood pressure 144/77 saturation 95 on 2 L WBC 14.2 H&H 10.8 and 32.1 platelets 95 neutrophils 85.2 Indwelling's: NG tube, right IJ triple-lumen catheter, Suh catheter, right femoral Saurabh Microbiologist cultures had been negative, sputum culture pending Antimicrobials: Zosyn Physical examination: Well-nourished well-developed middle-aged man who is in no distress. Head atraumatic normocephalic sclera nonicteric. Neck is supple chest rise symmetrical breath sounds diminished bases. Heart: S1-S2, tachycardic. Abdomen soft bowel sounds present. Extremities with bilateral edema Assessment: 1. Resolving sepsis status post shock 2. Acute encephalopathy, resolving 3. Acute hypoxemic respiratory failure 4. Pneumonia possibly aspirated 5. Pulmonary edema 6. Acute renal failure, on hemodialysis 7. Transaminitis, possibly shock liver 8. Polysubstance abuse Plan: Remains stable, continue present care, aspiration precautions, hemodialysis per renal Consultation Date/Type/Reason Admit Date/Time Aug 20, 2018 at 21:39 Initial Consult Date 08/21/18 Type of Consult id Requesting Provider: QASIM BURROWS Exam/Review of Systems Vital Signs Vitals Vital Signs Date Temp Pulse Resp B/P (MAP) Pulse Ox O2 O2 Flow FiO2 Time Delivery Rate 08/25/18 77 11:45 08/25/18 28 144/77 95 10:00 (99) 08/25/18 Nasal 2.0 10:00 Cannula 08/25/18 98.4 08:00 08/24/18 21 20:11 Intake and Output 08/24/18 08/24/18 08/25/18 1515:00 23:00 07:00 IntakeIntake Total 320 ml 610 ml 190 ml OutputOutput Total 24 ml 28 ml 28 ml BalanceBalance 296 ml 582 ml 162 ml BRIANNE COYLE NP Aug 25, 2018 11:54
[2018-08-25] MEDS: HEPARIN 1000 UNITS/ML 10 ML INJ CATHETER SCH (12:56)
--- NOTE | 2018-08-25 15:25 | CONS ---
Date/Time of Note Date/Time of Note DATE: 08/25/18 TIME: 15:23 Assessment/Plan Assessment/Plan Additional Assessment/Plan Acute respiratory failure status post extubation Low normal left ventricular ejection fraction 50% Sepsis Acute kidney injury Myocardial infarction, likely type II Liver dysfunction Illicit drug use -Troponins elevated and trending down, likely secondary to demand ischemia. No aspirin therapy at the current time given thrombocytopenia. No statin given abnormal LFTs. Continue beta-kishan as tolerated. Consultation Date/Type/Reason Admit Date/Time Aug 20, 2018 at 21:39 Initial Consult Date 08/21/18 Type of Consult cv Requesting Provider: QASIM BURROWS 24 HR Interval Summary Free Text/Dictation Patient seen and examined, denies shortness of breath, chest pain Exam/Review of Systems Vital Signs Vitals Vital Signs Date Temp Pulse Resp B/P (MAP) Pulse Ox O2 O2 Flow FiO2 Time Delivery Rate 08/25/18 90 23 127/80 97 14:00 (96) 08/25/18 Nasal 2.0 13:20 Cannula 08/25/18 99.0 12:00 08/24/18 21 20:11 Intake and Output 08/24/18 08/24/18 08/25/18 1515:00 23:00 07:00 IntakeIntake Total 320 ml 610 ml 200 ml OutputOutput Total 24 ml 28 ml 28 ml BalanceBalance 296 ml 582 ml 172 ml Exam Following some commands, no apparent distress Constitutional: alert Head: normocephalic Respiratory: other (Coarse breath sounds bilaterally, no wheezing) Cardiovascular: regular rate and rhythm, other (S1-S2 heard) Gastrointestinal: soft, non-tender, bowel sounds Extremities: edema Kana Phoenix DO Aug 25, 2018 15:25
[2018-08-25] MEDS ORDERED: ONDANSETRON 4 MG INJ IV PRN (21:30)
[2018-08-26] VITALS (11 sets, daily range): BP systolic 118–145; BP diastolic 62–85; PULSE 75–93; RESP 18–25
[2018-08-26] MEDS: INSULIN ASPART [NOVOLOG] 3 ML PEN SC SCH ×6 (01:00→21:00)
[2018-08-26] MEDS: ACETAMINOPHEN 650MG/20.3ML CUP PO PRN (03:57)
[2018-08-26] MEDS: PIPER-TAZO 2.25 GM (PMX) 50 ML IVPB SCH ×3 (05:22→21:17)
[2018-08-26] MEDS: LANSOPRAZOLE 30 MG CAP GTB SCH ×2 (05:22→17:18)
--- NOTE | 2018-08-26 08:16 | CONS ---
Date/Time of Note Date/Time of Note DATE: 08/26/18 TIME: 08:14 Assessment/Plan Assessment/Plan Additional Assessment/Plan 1. Acute renal failure sec to rhabdo, next HD tomm 2. Vol overload resolving, last cxr noted 3. ?? Cont abx 4. Impaired cognition Consultation Date/Type/Reason Admit Date/Time Aug 20, 2018 at 21:39 Initial Consult Date 08/21/18 Requesting Provider: QASIM BURROWS 24 HR Interval Summary Constitutional: other (Somnolent but responds to his name) Detailed Summary ENT: no complaints Exam/Review of Systems Vital Signs Vitals Vital Signs Date Temp Pulse Resp B/P (MAP) Pulse Ox O2 O2 Flow FiO2 Time Delivery Rate 08/26/18 Nasal 2.0 07:47 Cannula 08/26/18 98.0 79 18 118/69 97 07:20 (85) 08/24/18 21 20:11 Intake and Output 08/25/18 08/25/18 08/26/18 1414:59 22:59 06:59 IntakeIntake Total 420 ml 140 ml OutputOutput Total 2400 ml 15 ml BalanceBalance -1980 ml 125 ml Exam Neck: No jvd Cardiovascular: regular rate and rhythm Gastrointestinal: soft Extremities: edema (brawny edema of ankles) MAXIMO TAY MD Aug 26, 2018 08:16
[2018-08-26] MEDS: METOPROLOL 25 MG TAB PO SCH ×2 (09:08→21:17)
--- NOTE | 2018-08-26 10:50 | PN ---
Date/Time of Note Date/Time of Note DATE: 08/26/18 TIME: 10:45 Assessment/Plan VTE Prophylaxis Risk score (from Ns)>0 risk: 6 SCD applied (from Nsg): Yes Pharmacological prophylaxis: other Lines/Catheters IV C[facility]ter Type [facility]from [facility] HORTENSIA CATH Urinary Cath still in place: Yes Reason Cath still needed: urinary retention Assessment/Plan Hospital Course S: Patient out of the intensive care unit now. Received dialysis yesterday. Seen by renal team this morning. Still on NG tube feeds along with p.o. feeds. Patient did have fever 101.6 last night. O: VS - see below PE: Gen: Lying in bed, no acute distress, NG tube in place Eyes: Pupils equal round reactive to light, extraocular muscles intact HEENT: ET tube in place, moist mucous membranes, Card: Regular rate and rhythm no murmurs Pulm: Mechanical breath sounds bilaterally, no crackles. Abd: Soft, nondistended. Ext: No cyanosis/clubbing/edema Skin: Large fluid-filled bulla R medial thigh. : Suh in place with minimal urine output. Assessment/Plan: 33 yo man brought in found down with subsequent JULIAN secondary to rhabdomyolysis; positive for alcohol, methamphetamine, cannabis, opioids as well. #JULIAN- Oliguric renal failure with hyperkalemia (after potassium replacement), also presented with severe metabolic acidosis- Likely due to a combination of rhabdo and drug use. CK level still quite elevated, but trending down now -Continue dialysis per renal recommendations, next dialysis scheduled for in 24 hours -follow up renal recommendations # acute ventilatory dependent respiratory failure-again extubated 3 days ago, was likely secondary to polysubstance overdose resulting in multiorgan dysfunction; patient had subsequent severe metabolic acidosis with inadequate respiratory compensation-now oxygen levels stable on nasal cannula supplementation -For now continue zosyn for possible community-acquired pneumonia-still with positive fevers and leukocytosis as mentioned above, will recheck chest x-ray in the morning -Follow-up pulmonary recommendations # Acute encephalopathy: -Slowly improving, from polysubstance abuse-no present signs of withdrawal -Monitor # Elevated troponin-appears stable- CV Dr. Nj consulted earlier this admission. Likely demand ischemia from drug use. - Will not treat per NSTEMI protocol, monitor, follow-up cardiology recommendations # transaminitis: - May be from shock liver or drug use.- Hep B, Hep C negative. LFTs have been slowly trending down over the last 2-3 days, still elevated overall -Continue to monitor LFTs # Rhabdomyolysis: -See above secondary to patient found down as well as polysubstance abuse - again now requiring dialysis. Again CK levels still overall quite elevated, but trending down the last 3-4 days -Monitor CK levels # Coagulopathy- May be due to liver and renal injury as well as drug use- No DIC - Will watch closely, monitor CBC, follow-up hematology oncology recommendation # polysubstance abuse - Again patient was found to be positive for opioids, methamphetamine, marijuana and an elevated blood alcohol level. -Ordered for thiamine 300 mg IM daily times 3 days, further treatment as per the clinical course # DVT and GI prophylaxis: Protonix twice daily Social work consulted for next of kin; after very diligent search no one has been found yet. Exam/Review of Systems Vital Signs Vitals Vital Signs Date Temp Pulse Resp B/P (MAP) Pulse Ox O2 O2 Flow FiO2 Time Delivery Rate 08/26/18 77 08:24 08/26/18 Nasal 2.0 07:47 Cannula 08/26/18 98.0 18 118/69 97 07:20 (85) 08/24/18 21 20:11 Intake and Output 08/25/18 08/25/18 08/26/18 1515:00 23:00 07:00 IntakeIntake Total 410 ml 110 ml OutputOutput Total 2400 ml 15 ml BalanceBalance -1990 ml 95 ml CINTIA ESPINOSA Aug 26, 2018 10:50
--- NOTE | 2018-08-26 13:55 | PN ---
DATE: 08/26/2018 SUBJECTIVE: The patient has been transferred to floor care. He has no obvious complaints, but is se dated and responds minimally to questions. OBJECTIVE: GENERAL: The patient is a well-developed, ill-appearing male who is lethargic but in no obvious dist ress. VITAL SIGNS: Temperature 98, pulse 77 per minute and regular, respirations 18, blood pressure 118/69 , pulse oximetry 97% on 2 liters of oxygen by nasal cannula. SKIN: No ecchymosis, no petechiae or rashes. HEENT: Normocephalic. No evidence of trauma. Pupils equal, round, reactive to light and accommodat ion. Sclerae nonicteric. There is a nasogastric tube in place. NECK: Supple. No jugular venous distention or thyroid enlargement. There is an internal jugular ca theter on the right side. CHEST: Clear to auscultation and percussion. No rhonchi, wheezes, rales or rubs are heard. HEART: Regular sinus rhythm, no S3, S4 or murmurs. ABDOMEN: Mildly distended but soft. No distinct masses are palpable. EXTREMITIES: There is bilateral upper extremity edema from axilla to arms, including hands. No palp able cords. Lower extremities have antithrombotic pumps in place. NEUROLOGIC: Patient is lethargic but arousable. No focal neurologic abnormalities. LABS: WBC 13,100 with an absolute neutrophil count of 10,000, hemoglobin 10.5, hematocrit 30.4, plat elet count 115,000. Sodium 139, potassium 3.9, creatinine 7.99, BUN 84, total bilirubin 0.3, direct bilirubin 0.3, AST 528, ALT 972, alkaline phosphatase 115. CK 4911. ASSESSMENT: 1. Respiratory failure secondary to drug overdose, resolved. 2. Metabolic acidosis with renal failure. 3. Rhabdomyolysis. 4. Transaminitis, probably due to hypoperfusion of the liver. 5. Coagulopathy, resolved. The patient is slowly improving. All functions are improving except for the patient's renal status. There are no hematologic abnormalities at this time. No coagulation problems. We will see the patie nt again on a p.r.n. basis. Some concern, however, about the bilateral upper extremity edema with the presence of an internal jug ular catheter. Dictated By: MAKAYLA GOLDSTEIN MD SR/NTS Conf#: [id number] DID#: [id number] CC: QASIM BURROWS MD;*[facility]*
--- NOTE | 2018-08-26 16:51 | CONS ---
Date/Time of Note Date/Time of Note DATE: 08/26/18 TIME: 16:50 Assessment/Plan Assessment/Plan Chief Complaint/Hosp Course Patient was transferred to telemetry he is awake looks better no fevers overnight WBC 13.1 platelets 115 neutrophils 85 Upper extremity ultrasound revealed no DVT Indwelling's: NG tube, right IJ triple-lumen catheter, Suh catheter, right femoral Saurabh Microbiologist cultures had been negative, sputum culture pending Antimicrobials: Tania Physical examination: Well-nourished well-developed middle-aged man who is in no distress. Head atraumatic normocephalic sclera nonicteric. Neck is supple chest rise symmetrical breath sounds diminished bases. Heart: S1-S2, tachycardic. Abdomen soft bowel sounds present. Extremities with bilateral edema Assessment: 1. Resolving sepsis status post shock 2. Acute encephalopathy, resolving 3. Acute hypoxemic respiratory failure 4. Pneumonia possibly aspirated 5. Pulmonary edema 6. Acute renal failure, on hemodialysis 7. Transaminitis, possibly shock liver 8. Polysubstance abuse Plan: Slowly improving, continue present care, aspiration precautions, hemodialysis per renal Consultation Date/Type/Reason Admit Date/Time Aug 20, 2018 at 21:39 Initial Consult Date 08/21/18 Type of Consult id Requesting Provider: QASIM BURROWS Exam/Review of Systems Vital Signs Vitals Vital Signs Date Temp Pulse Resp B/P (MAP) Pulse Ox O2 O2 Flow FiO2 Time Delivery Rate 08/26/18 98.0 75 18 145/85 98 Nasal 15:20 (105) Cannula 08/26/18 2.0 07:47 08/24/18 21 20:11 Intake and Output 08/25/18 08/25/18 08/26/18 1515:00 23:00 07:00 IntakeIntake Total 410 ml 110 ml OutputOutput Total 2400 ml 15 ml BalanceBalance -1990 ml 95 ml BRIANNE COYLE NP Aug 26, 2018 16:51
--- NOTE | 2018-08-26 18:38 | PN ---
DATE: 08/26/2018 SUBJECTIVE: The patient's condition remains tenuous at best. The patient, however, has been transfe rred to medical floor. The patient is responsive but appears lethargic. PHYSICAL EXAMINATION: GENERAL: Young male, currently in no distress. VITAL SIGNS: Temperature is 98 degree Fahrenheit, respiratory rate is 18 per minute, heart rate 80 p er minute, blood pressure 130/70, O2 saturation is 95% on 2 liter nasal cannula. Urine output remain s poor. HEENT: Supple neck. No JVD, no lymphadenopathy, midline trachea, no thyromegaly. The patient has f air dentition. Nasogastric tube in place. CHEST: Clear to auscultation. CARDIOVASCULAR: S1, S2 audible. No murmurs, regular rhythm. ABDOMEN: Soft, nondistended, no organomegaly. Bowel sounds audible. EXTREMITIES: No edema. SKIN: The patient is awake but lethargic but follows simple commands. LABORATORY DATA: Yesterday, white count is 13.1, hemoglobin 10.5, platelet count of 115, showing improvement. Sodium 139, potassium 3.9, chloride 101, bicarbonate 26, BUN 84, creatinine 8. MEDICATIONS: Reviewed. ASSESSMENT: The patient admitted with: 1. Respiratory failure due to acute renal failure with marked metabolic acidosis requiring dialysis with extubation with stable clinical status. 2. Encephalopathy with interval improvement but still lethargic however. 3. Sepsis of unknown etiology. The patient is currently improving with improving leukocytosis on cu rrent antimicrobial regimen. 4. History of drug abuse. 5. Anemia and thrombocytopenia. RECOMMENDATIONS: Continue supportive care. Hemodialysis per indigo mixer. Dictated By: BERNARD SINGH MD AQ/NTS Conf#: [id number] DID#: [id number] CC: QASIM BURROWS MD;*[facility]*
[2018-08-26] MEDS ORDERED: Insulin NOVOLOG SS MILD Algorithm (SS with meals and bedtime) SC SCH (21:00)
[2018-08-26] MEDS ORDERED: INSULIN ASPART [NOVOLOG] 3 ML PEN SC SCH (21:00)
[2018-08-27] VITALS (26 sets, daily range): BP systolic 104–144; BP diastolic 56–96; PULSE 70–95; RESP 18–21
[2018-08-27] MEDS: ACCU-CHEK XX SCH (02:00)
[2018-08-27] MEDS ORDERED: ACCUCHECK AT 2AM (Patients on SS coverage) XX SCH (02:00)
[2018-08-27] MEDS: LANSOPRAZOLE 30 MG CAP GTB SCH ×2 (05:55→18:00)
[2018-08-27] MEDS: PIPER-TAZO 2.25 GM (PMX) 50 ML IVPB SCH ×3 (05:55→20:32)
[2018-08-27] MEDS: INSULIN ASPART [NOVOLOG] 3 ML PEN SC SCH ×4 (07:55→20:29)
--- NOTE | 2018-08-27 10:20 | PN ---
Date/Time of Note Date/Time of Note DATE: 08/27/18 TIME: 10:15 Assessment/Plan VTE Prophylaxis Risk score (from Ns)>0 risk: 6 SCD applied (from Ns): Yes Pharmacological prophylaxis: other Lines/Catheters IV Catheter Type (from Nrsg): Central Line Central line still needed: Yes Urinary Cath still in place: Yes Reason Cath still needed: urinary retention Assessment/Plan Hospital Course S: Patient present getting dialysis, NG tube is out. Had fever 100.4 earlier this morning. O: VS - see below PE: Gen: Lying in bed, no acute distress, NG tube in place Eyes: Pupils equal round reactive to light, extraocular muscles intact HEENT: ET tube in place, moist mucous membranes, Card: Regular rate and rhythm no murmurs Pulm: Mechanical breath sounds bilaterally, no crackles. Abd: Soft, nondistended. Ext: No cyanosis/clubbing/edema Skin: Large fluid-filled bulla R medial thigh. : Suh in place with minimal urine output. Assessment/Plan: 33 yo man brought in found down with subsequent JULIAN secondary to rhabdomyolysis; positive for alcohol, methamphetamine, cannabis, opioids as well. #JULIAN- Oliguric renal failure with hyperkalemia (after potassium replacement), also presented with severe metabolic acidosis- Likely due to a combination of rhabdo and drug use. CK level still elevated, but trending down now the last few days -Continue dialysis per renal recommendations -follow up renal recommendations # acute ventilatory dependent respiratory failure-again extubated 4 days ago, was likely secondary to polysubstance overdose resulting in multiorgan dysfunction; patient had subsequent severe metabolic acidosis with inadequate respiratory compensation-now oxygen levels stable on nasal cannula supplementation -For now continue zosyn for possible community-acquired pneumonia-still with positive fevers and leukocytosis as mentioned above -Follow-up pulmonary recommendations # Acute encephalopathy: -Slowly improving, from polysubstance abuse-no present signs of withdrawal -Monitor # Elevated troponin-now appears stable- CV consulted earlier this admission. Likely demand ischemia from drug use. - Will not treat per NSTEMI protocol, monitor, follow-up cardiology recommendations # transaminitis: - May be from shock liver or drug use.- Hep B, Hep C negative. LFTs have been slowly trending down over the last 3 days -Continue to monitor LFTs # Rhabdomyolysis: -See above secondary to patient found down as well as polysubstance abuse - again now requiring dialysis. Again CK levels still overall quite elevated, but trending down the last 4 days -Monitor CK levels # Coagulopathy- May be due to liver and renal injury as well as drug use- No DIC - Will watch closely, monitor CBC, follow-up hematology oncology recommendation # polysubstance abuse - Again patient was found to be positive for opioids, methamphetamine, marijuana and an elevated blood alcohol level. -Ordered for thiamine 300 mg IM daily times 3 days, further treatment as per the clinical course # DVT and GI prophylaxis: Protonix twice daily Social work consulted for next of kin; after very diligent search no one has been found yet. Exam/Review of Systems Vital Signs Vitals Vital Signs Date Temp Pulse Resp B/P (MAP) Pulse Ox O2 O2 Flow FiO2 Time Delivery Rate 08/27/18 89 20 144/89 99 Nasal 2.0 09:19 (107) Cannula 08/27/18 99.1 07:25 08/24/18 21 20:11 Intake and Output 08/26/18 08/26/18 08/27/18 1515:00 23:00 07:00 IntakeIntake Total 850 ml OutputOutput Total 50 ml 250 ml BalanceBalance 800 ml -250 ml CINTIA ESPINOSA Aug 27, 2018 10:20
--- NOTE | 2018-08-27 10:58 | CONS ---
Date/Time of Note Date/Time of Note DATE: 08/27/18 TIME: 10:56 Assessment/Plan Assessment/Plan Additional Assessment/Plan Chest x-ray was reviewed from today which is showing minimal patchy infiltrates in lower lobes. Assessment recommendations; 1. Patient admitted with respiratory failure due to severe metabolic acidosis and possibly acute on chronic renal failure, with marked interval improvement status post extubation with interval correction of metabolic acidosis. 2. Continue requirement for hemodialysis. 3. Sepsis of unknown source, possibly with patchy pneumonia, currently on appropriate antimicrobial regimen. 4. History of drug abuse. 5. History of hypertension. 6. Marked interval improvement in encephalopathy. Continue current supportive care. 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 Consultation Date/Type/Reason Admit Date/Time Aug 20, 2018 at 21:39 Initial Consult Date 08/21/18 Type of Consult Pulmonary/critical care History presenting illness; Patient is a 33-year-old male who was brought into the emergency room after he was found unresponsive at a sidewalk, patient however did not require any CPR performed and had spontaneous pulse and respirations. Patient be diagnosed with severe sepsis as well as acute renal failure and shock liver. By the time I saw the patient I saw, patient is orally intubated and sedated. Past medical history; 1. History of substance abuse. Medications; reviewed. Patient is currently on Versed 2 mg/h, Levophed 80 mics per minute. Patient also is on adequate fluid resuscitation. Other medications were reviewed in detail. Allergies; not available. Social history; drug abuse. Family history and occupational history not available. REVIEW of system; unable to be obtained. General exam; young male, orally intubated, sedated, currently in no distress. Requesting Provider: QASIM BURROWS 24 HR Interval Summary Free Text/Dictation Patient's condition is stable. Mental status is markedly improved. Currently getting hemodialysis at bedside. Patient denies any shortness of, chest pain, fever chills. General exam; young male, awake alert, currently no distress. Exam/Review of Systems Vital Signs Vitals Vital Signs Date Temp Pulse Resp B/P (MAP) Pulse Ox O2 O2 Flow FiO2 Time Delivery Rate 08/27/18 86 10:15 08/27/18 20 144/89 99 Nasal 2.0 09:19 (107) Cannula 08/27/18 99.1 07:25 08/24/18 21 20:11 Intake and Output 12/21/18 12/21/18 12/22/18 1515:00 23:00 07:00 IntakeIntake Total 850 ml OutputOutput Total 50 ml 250 ml BalanceBalance 800 ml -250 ml Exam HEENT exam; supple neck, no JVD. No lymphadenopathy. Midline trachea. No thyromegaly. Patient has fair dentition. No neck masses. Chest exam; clear to auscultation. S1-S2 audible, no murmurs. Regular rhythm. Abdomen exam; soft, nontender. No organomegaly. Bowel sounds audible. Extremity exam; no edema clubbing. STATION CHIEF exam; no focal deficit. BERNARD SINGH Aug 27, 2018 10:58
--- NOTE | 2018-08-27 11:16 | CONS ---
Date/Time of Note Date/Time of Note DATE: 08/27/18 TIME: 11:14 Assessment/Plan Assessment/Plan Additional Assessment/Plan 1. ARF, now on HD and will order same tomm as still vol expanded. 2. Elev wbc, blood and urine cult ordered and cxr 3. Somnolent, still on Fentanyl Consultation Date/Type/Reason Admit Date/Time Aug 20, 2018 at 21:39 Initial Consult Date 08/21/18 Requesting Provider: QASIM BURROWS 24 HR Interval Summary Constitutional: other (somnolent but diaysis rn indicates was alert earlier) Exam/Review of Systems Vital Signs Vitals Vital Signs Date Temp Pulse Resp B/P (MAP) Pulse Ox O2 O2 Flow FiO2 Time Delivery Rate 08/27/18 86 10:15 08/27/18 20 144/89 99 Nasal 2.0 09:19 (107) Cannula 08/27/18 99.1 07:25 08/24/18 21 20:11 Intake and Output 08/26/18 08/26/18 08/27/18 1515:00 23:00 07:00 IntakeIntake Total 850 ml OutputOutput Total 50 ml 250 ml BalanceBalance 800 ml -250 ml Exam Neck: No jvd Respiratory: clear to auscultation Cardiovascular: regular rate and rhythm Gastrointestinal: soft Extremities: No edema (2+ sacral and extrem) MAXIMO TAY MD Aug 27, 2018 11:16
[2018-08-27] MEDS: HEPARIN 1000 UNITS/ML 10 ML INJ CATHETER SCH (11:29)
[2018-08-27] MEDS ORDERED: VANCOMYCIN IV PER PHARMACY XX SCH (11:30)
[2018-08-27] MEDS ORDERED: VANCOMYCIN 1 GM 250 ML IVPB ONE (13:00)
[2018-08-27] MEDS: ACETAMINOPHEN 650MG/20.3ML CUP PO PRN (14:13)
[2018-08-27] MEDS: METOPROLOL 25 MG TAB PO SCH ×2 (14:14→20:30)
--- NOTE | 2018-08-27 14:38 | CONS ---
Date/Time of Note Date/Time of Note DATE: 08/27/18 TIME: 14:32 Consultation Date/Type/Reason Admit Date/Time Aug 20, 2018 at 21:39 Initial Consult Date SUBJECTIVE: Patient is more awake, alert. Noted with fever today 101.1 VS: T: 101.1 LABS: Reviewed. WBC-17.1 Upper extremity ultrasound revealed no DVT Indwelling's: NG tube, right IJ triple-lumen catheter, Suh catheter, right femoral Saurabh MICROBIOLOGY: cultures had been negative, sputum culture pending CXR today: IMPRESSION: 1. Interval extubation and removal of the enteric catheter with a right IJ catheter stable in positioning. 2. Worsening air space opacification seen at the left lung base and to a lesser extent at the left lung base. The costophrenic angles are now blunted cyst raising the suspicion of development of small bilateral pleural fluid accumulations. No pneumothorax is evident. 3. The cardiovascular silhouette is stable and unremarkable. Antimicrobials: Zosyn Physical examination: GEN:Well-nourished well-developed middle-aged man who is in no distress. HEAD: atraumatic normocephalic sclera nonicteric. NECK: supple CHEST: rise symmetrical breath sounds diminished bases. HEART: S1-S2, tachycardic. ABDOMEN: soft bowel sounds present. Extremities with bilateral edema Assessment: 1. Resolving sepsis status post shock 2. Acute encephalopathy, resolving 3. Acute hypoxemic respiratory failure 4. Pneumonia possibly aspirated 5. Pulmonary edema 6. Acute renal failure, on hemodialysis 7. Transaminitis, possibly shock liver 8. Polysubstance abuse Plan: Slowly improving. Aspiration precautions. Will add Vanco and CXR noted. Repeat blood and UA cultures. AM labs. Requesting Provider: QASIM BURROWS Exam/Review of Systems Vital Signs Vitals Vital Signs Date Temp Pulse Resp B/P (MAP) Pulse Ox O2 O2 Flow FiO2 Time Delivery Rate 08/27/18 80 12:38 08/27/18 20 134/84 96 Nasal 2.0 11:49 (101) Cannula 08/27/18 101.1 11:21 08/24/18 21 20:11 Intake and Output 08/26/18 08/26/18 08/27/18 1515:00 23:00 07:00 IntakeIntake Total 850 ml OutputOutput Total 50 ml 250 ml BalanceBalance 800 ml -250 ml STEPANSKY,SHANTANU Aug 27, 2018 14:38
[2018-08-28] VITALS (12 sets, daily range): BP systolic 107–125; BP diastolic 57–71; PULSE 70–93; RESP 18–22
[2018-08-28] MEDS: ACCU-CHEK XX SCH (02:00)
[2018-08-28] MEDS: PIPER-TAZO 2.25 GM (PMX) 50 ML IVPB SCH ×3 (06:18→21:42)
[2018-08-28] MEDS: LANSOPRAZOLE 30 MG CAP GTB SCH ×2 (06:18→18:03)
[2018-08-28] MEDS: INSULIN ASPART [NOVOLOG] 3 ML PEN SC SCH ×4 (07:55→21:00)
[2018-08-28] MEDS: METOPROLOL 25 MG TAB PO SCH ×2 (08:54→21:41)
--- NOTE | 2018-08-28 10:12 | CONS ---
Date/Time of Note Date/Time of Note DATE: 08/28/18 TIME: 10:10 Assessment/Plan Assessment/Plan Additional Assessment/Plan Assessment recommendations; 1. Patient admitted for severe shock and acute renal failure with marked metabolic acidosis, status post extubation several days ago with continually i mproving clinical status. 2. Persistent leukocytosis, source is unclear, patient currently on appropriate empiric antimicrobial regimen. 3. Improving transaminases indicative of improving shock liver. 4. Anemia. 5. Improving encephalopathy. 6. History of drug abuse. Continue current supportive care. Hemodialysis per pile driving superintendent. Antibiotics per ID recommendations. Consultation Date/Type/Reason Admit Date/Time Aug 20, 2018 at 21:39 Initial Consult Date 08/21/18 Type of Consult Pulmonary/critical care History presenting illness; Patient is a 33-year-old male who was brought into the emergency room after he was found unresponsive at a sidewalk, patient however did not require any CPR performed and had spontaneous pulse and respirations. Patient be diagnosed with severe sepsis as well as acute renal failure and shock liver. By the time I saw the patient I saw, patient is orally intubated and sedated. Past medical history; 1. History of substance abuse. Medications; reviewed. Patient is currently on Versed 2 mg/h, Levophed 80 mics per minute. Patient also is on adequate fluid resuscitation. Other medications were reviewed in detail. Allergies; not available. Social history; drug abuse. Family history and occupational history not available. REVIEW of system; unable to be obtained. General exam; young male, orally intubated, sedated, currently in no distress. Requesting Provider: QASIM BURROWS 24 HR Interval Summary Free Text/Dictation Patient's condition is stable. Has remained hemodynamically stable. Denies any shortness breath, chest pain. General exam; young male, awake alert, currently no distress. Exam/Review of Systems Vital Signs Vitals Vital Signs Date Temp Pulse Resp B/P (MAP) Pulse Ox O2 O2 Flow FiO2 Time Delivery Rate 08/28/18 89 08:23 08/28/18 97.9 18 107/57 95 07:22 (74) 08/27/18 Nasal 2.0 20:00 Cannula 08/24/18 21 20:11 Intake and Output 08/27/18 08/27/18 08/28/18 1414:59 22:59 06:59 IntakeIntake Total 720 ml 500 ml OutputOutput Total 2400 ml 50 ml 200 ml BalanceBalance -2400 ml 670 ml 300 ml Exam HEENT exam; supple neck, no JVD. No lymphadenopathy. Midline trachea. No thyromegaly. Patient has fair dentition. No neck masses. Chest exam; clear to auscultation. S1-S2 audible, no murmurs. Regular rhythm. Abdomen exam; soft, nontender. No organomegaly. Bowel sounds audible. Extremity exam; no peripheral edema or clubbing. DRIVER'S LICENSE REVIEWING OFFICER exam; no focal motor deficit. BERNARD SINGH Aug 28, 2018 10:12
--- NOTE | 2018-08-28 12:22 | CONS ---
Date/Time of Note Date/Time of Note DATE: 08/28/18 TIME: 12:21 Assessment/Plan Assessment/Plan Additional Assessment/Plan 1. Acute renal failure without recovery, will HD today and tomm 2. Vol expanded 3. Upper extrem edema, venous vasc study bilat was neg 4. Anemia is stable 5. Cognition has improved Consultation Date/Type/Reason Admit Date/Time Aug 20, 2018 at 21:39 Initial Consult Date 08/21/18 Requesting Provider: QASIM BURROWS 24 HR Interval Summary Constitutional: other (much more alert) Exam/Review of Systems Vital Signs Vitals Vital Signs Date Temp Pulse Resp B/P (MAP) Pulse Ox O2 O2 Flow FiO2 Time Delivery Rate 08/28/18 98.5 88 18 116/63 95 11:25 (80) 08/28/18 Nasal 2.0 08:22 Cannula 08/24/18 21 20:11 Intake and Output 08/27/18 08/27/18 08/28/18 1515:00 23:00 07:00 IntakeIntake Total 720 ml 500 ml OutputOutput Total 2400 ml 50 ml 200 ml BalanceBalance -2400 ml 670 ml 300 ml Exam Neck: No jvd Respiratory: clear to auscultation, diminished breath sounds Cardiovascular: regular rate and rhythm Gastrointestinal: No tender Extremities: edema (mod-severe ) MAXIMO TAY MD Aug 28, 2018 12:22
--- NOTE | 2018-08-28 12:28 | PN ---
Date/Time of Note Date/Time of Note DATE: 08/28/18 TIME: : Assessment/Plan VTE Prophylaxis Risk score (from Ns)>0 risk: 4 SCD applied (from Ns): Yes Pharmacological prophylaxis: other Lines/Catheters [facility]from [facility]): HORTENSIA CATH Urinary Cath still in place: Yes Reason Cath still needed: urinary retention Assessment/Plan Hospital Course S: Patient received dialysis yesterday. No fevers overnight. Still somewhat lethargic, but responsive to commands. Seen by renal and pulmonary teams today. Speech therapy as well O: VS - see below PE: Gen: Lying in bed, no acute distress, NG tube in place Eyes: Pupils equal round reactive to light, extraocular muscles intact HEENT: ET tube in place, moist mucous membranes, Card: Regular rate and rhythm no murmurs Pulm: Mechanical breath sounds bilaterally, no crackles. Abd: Soft, nondistended. Ext: No cyanosis/clubbing/edema Skin: Large fluid-filled bulla R medial thigh. : Suh in place with minimal urine output. Assessment/Plan: 33 yo man brought in found down with subsequent JULIAN secondary to rhabdomyolysis; positive for alcohol, methamphetamine, cannabis, opioids as well. # Renal failure- Oliguric renal failure with hyperkalemia (after potassium replacement), also presented with severe metabolic acidosis- Likely due to a combination of rhabdo and drug use. CK level still slightly elevated, but trend ing down now the last few days -Continue dialysis per renal recommendations -follow up renal recommendations # acute ventilatory dependent respiratory failure-again extubated 4 days ago, was likely secondary to polysubstance overdose resulting in multiorgan dysfunction; patient had subsequent severe metabolic acidosis with inadequate respiratory compensation-now oxygen levels stable on nasal cannula supplementation -For now continue zosyn for possible community-acquired pneumonia-white blood cell count still elevated, follow-up CBC daily. -Follow-up pulmonary recommendations -PT eval # Acute encephalopathy: -Slowly improving, from polysubstance abuse-no present signs of withdrawal -Monitor # Elevated troponin-now appears stable- CV consulted earlier this admission. Likely demand ischemia from drug use. - Will not treat per NSTEMI protocol, monitor, follow-up cardiology rec ommendations # transaminitis: - May be from shock liver or drug use.- Hep B, Hep C negative. LFTs have been slowly trending down over the last 3-4 days -Continue to monitor LFTs # Rhabdomyolysis: -See above secondary to patient found down as well as po lysubstance abuse - again now requiring dialysis. Again CK levels still overall slightly elevated, but trending down the last 4-5 days -Monitor CK levels # Coagulopathy- May be due to liver and renal injury as well as drug use- No DIC - Will watch closely, monitor CBC, follow-up hematology oncology recommendation # polysubstance abuse - Again patient was found to be positive for opioids, methamphetamine, marijuana and an elevated blood alcohol level. -Earlier this admission ordered for thiamine 300 mg IM daily times 3 days, further treatment as per the clinical course # DVT and GI prophylaxis: Protonix twice daily Dispo: Patient may need fdc facility placement, continue physical therapy daily. He is to follow-up with renal team about the need for outpatient dialysis? Exam/Review of Systems Vital Signs Vitals Vital Signs Date Temp Pulse Resp B/P (MAP) Pulse Ox O2 O2 Flow FiO2 Time Delivery Rate 08/28/18 98.5 88 18 116/63 95 11:25 (80) 08/28/18 Nasal 2.0 08:22 Cannula 08/24/18 21 20:11 Intake and Output 08/27/18 08/27/18 08/28/18 1515:00 23:00 07:00 IntakeIntake Total 720 ml 500 ml OutputOutput Total 2400 ml 50 ml 200 ml BalanceBalance -2400 ml 670 ml 300 ml CINTIA ESPINOSA Aug 28, 2018 12:28
--- NOTE | 2018-08-28 13:54 | CONS ---
Date/Time of Note Date/Time of Note DATE: 08/28/18 TIME: 13:52 Assessment/Plan Assessment/Plan Chief Complaint/Hosp Course No acute events overnight patient is sleeping arousable in no distress. T-max 101.1 yesterday declined 98.5 WBC 16.7 H&H 10.9 and 31.5 platelets 77.2 Indwelling: Right IJ triple-lumen catheter, Right femoral Saurabh, Suh Antimicrobials: Vancomycin, Zosyn Chest x-ray revealed worsening airspace opacification at the left lung base Physical examination: Well-nourished well-developed middle-aged man who is in no distress. Head atraumatic normocephalic sclera nonicteric. Neck is supple chest rise symmetrical breath sounds diminished bases. Heart: S1-S2, tachycardic. Abdomen soft bowel sounds present. Extremities with bilateral edema Assessment: 1. Persistent leukocytosis with fevers and radiographic worsening, possible aspiration 2. Acute encephalopathy, resolving 3. Status post acute hypoxemic respiratory failure 4. Pneumonia 5. Pulmonary edema 6. Acute renal failure, on hemodialysis 7. Transaminitis, possibly shock liver 8. History of polysubstance abuse Plan: Clinically stable, continue antibiotics, follow repeat blood cultures, consider to change lines given ongoing fevers Consultation Date/Type/Reason Admit Date/Time Aug 20, 2018 at 21:39 Initial Consult Date 08/21/18 Type of Consult id Requesting Provider: QASIM BURROWS Exam/Review of Systems Vital Signs Vitals Vital Signs Date Temp Pulse Resp B/P (MAP) Pulse Ox O2 O2 Flow FiO2 Time Delivery Rate 08/28/18 89 13:00 08/28/18 98.5 18 116/63 95 11:25 (80) 08/28/18 Nasal 2.0 08:22 Cannula 08/24/18 21 20:11 Intake and Output 08/27/18 08/27/18 08/28/18 1515:00 23:00 07:00 IntakeIntake Total 720 ml 500 ml OutputOutput Total 2400 ml 50 ml 200 ml BalanceBalance -2400 ml 670 ml 300 ml BRIANNE COYLE NP Aug 28, 2018 13:54
[2018-08-29] VITALS (18 sets, daily range): BP systolic 92–124; BP diastolic 43–72; PULSE 80–95; RESP 18–19
[2018-08-29] MEDS: ACCU-CHEK XX SCH (02:00)
[2018-08-29] MEDS: PIPER-TAZO 2.25 GM (PMX) 50 ML IVPB SCH ×3 (05:37→21:41)
[2018-08-29] MEDS: LANSOPRAZOLE 30 MG CAP GTB SCH ×2 (06:51→17:10)
[2018-08-29] MEDS: INSULIN ASPART [NOVOLOG] 3 ML PEN SC SCH ×4 (08:00→20:50)
[2018-08-29] MEDS: METOPROLOL 25 MG TAB PO SCH ×2 (08:53→20:48)
--- NOTE | 2018-08-29 10:28 | PN ---
Date/Time of Note Date/Time of Note DATE: 08/29/18 TIME: 10:21 Assessment/Plan VTE Prophylaxis Risk score (from Ns)>0 risk: 6 SCD applied (from Ns): Yes Pharmacological prophylaxis: heparin Lines/Catheters IV [facility]from [facility]): HORTENSIA CATH Urinary Cath still in place: Yes Reason Cath still needed: other (indicate) (oliguric renal failure) Assessment/Plan Assessment/Plan 33 yo man brought in found down with subsequent JULIAN secondary to rhabdomyolysis; positive for alcohol, methamphetamine, cannabis, opioids as well. # Renal failure- Oliguric renal failure with hyperkalemia (after potassium replacement), also presented with severe metabolic acidosis- Likely due to a combination of rhabdo and drug use. CK level still slightly elevated, but trending down now the last few days -Continue dialysis per renal recommendations # acute ventilatory dependent respiratory failure-again extubated 4 days ago, was likely secondary to polysubstance overdose resulting in multiorgan dysfunction; patient had subsequent severe metabolic acidosis with inadequate respiratory compensation-now oxygen levels stable on nasal cannula supplementation -For now continue zosyn for possible community-acquired pneumonia-white blood cell count still elevated, follow-up CBC daily. -Follow-up pulmonary recommendations -PT eval # Acute encephalopathy: -Slowly improving, from polysubstance abuse-no present signs of withdrawal -Monitor # Elevated troponin-now appears stable- CV consulted earlier this admission. Likely demand ischemia from drug use. - Will not treat per NSTEMI protocol, monitor, follow-up cardiology recommendations # transaminitis: - May be from shock liver or drug use.- Hep B, Hep C negative. LFTs have been slowly trending down over the last 3-4 days -Continue to monitor LFTs # Rhabdomyolysis: -See above secondary to patient found down as well as polysubstance abuse - again now requiring dialysis. Again CK levels still overall slightly elevated, but trending down the last 4-5 days -Monitor CK levels # Coagulopathy- May be due to liver and renal injury as well as drug use- No DIC - Will watch closely, monitor CBC, follow-up hematology oncology recommendation # polysubstance abuse - Again patient was found to be positive for opioids, methamphetamine, marijuana and an elevated blood alcohol level. -Earlier this admission ordered for thiamine 300 mg IM daily times 3 days, further treatment as per the clinical course # DVT and GI prophylaxis: Protonix twice daily Dispo: Patient may need half-way facility placement, continue physical therapy daily. He is to follow-up with renal team about the need for outpatient dialysis Subjective 24 Hr Interval Summary Free Text/Dictation Patient still very fatigued. Oriented to name and year. Not month, day, or location. Exam/Review of Systems Vital Signs Vitals Vital Signs Date Temp Pulse Resp B/P (MAP) Pulse Ox O2 O2 Flow FiO2 Time Delivery Rate 08/29/18 Nasal 2.0 08:00 Cannula 08/29/18 99.0 80 18 118/71 97 08:00 (87) Intake and Output 08/28/18 08/28/18 08/29/18 1515:00 23:00 07:00 IntakeIntake Total 600 ml 840 ml OutputOutput Total 100 ml 100 ml BalanceBalance 500 ml 740 ml Exam Gen: Lying in bed, no acute distress, nasal cannula in place. Eyes: Pupils equal round reactive to light, extraocular muscles intact HEENT: moist mucous membranes, Card: Regular rate and rhythm no murmurs Pulm: Clear breath sounds bilaterally, no crackles. Abd: Soft, nondistended. Ext: Bilateral upper arms with tense edema. YUMIKO JC MD Aug 29, 2018 10:28
--- NOTE | 2018-08-29 12:22 | CONS ---
Date/Time of Note Date/Time of Note DATE: 08/29/18 TIME: 12:21 Assessment/Plan Assessment/Plan Additional Assessment/Plan 1. ARF without recovery, now on HD, will plan on next HD wed 2. Blood cult is +, abx noted 3. Cognition has improved. Consultation Date/Type/Reason Admit Date/Time Aug 20, 2018 at 21:39 Initial Consult Date 08/21/18 Requesting Provider: QASIM BURROWS 24 HR Interval Summary Constitutional: other (alert and comfortable) Exam/Review of Systems Vital Signs Vitals Vital Signs Date Temp Pulse Resp B/P (MAP) Pulse Ox O2 O2 Flow FiO2 Time Delivery Rate 08/29/18 Nasal 2.0 08:00 Cannula 08/29/18 99.0 80 18 118/71 97 08:00 (87) Intake and Output 08/28/18 08/28/18 08/29/18 1515:00 23:00 07:00 IntakeIntake Total 600 ml 840 ml OutputOutput Total 100 ml 100 ml BalanceBalance 500 ml 740 ml Exam Neck: No jvd Respiratory: clear to auscultation Cardiovascular: regular rate and rhythm Gastrointestinal: soft Extremities: edema (sl less) Medications Medications Current Medications Albuterol (Ventolin Hfa) 4 puff Q2H RESP THERAPY PRN INH SHORTNESS OF BREATH; Start 08/20/18 at 22:00 Ipratropium [place] (Atrovent Hfa) 4 puff Q2H RESP THERAPY PRN INH SHORTNESS OF BREATH; Start 08/20/18 at 22:00 Acetaminophen (Tylenol Liquid) 650 mg Q6H PRN PO PAIN LEVEL 1-3 OR FEVER Last administered on 08/27/18at 14:13; Admin Dose 650 MG; Start 08/20/18 at 22:00 Miscellaneous Information 1 ea NOTE XX ; Start 08/21/18 at 16:30 Glucose (Glutose) 15 gm Q15M PRN PO DECREASED GLUCOSE; Start 08/21/18 at 16:30 Glucose (Glutose) 22.5 gm Q15M PRN PO DECREASED GLUCOSE; Start 08/21/18 at 16:30 Dextrose (D50w Syringe) 25 ml Q15M PRN IV DECREASED GLUCOSE; Start 08/21/18 at 16:30 Dextrose (D50w Syringe) 50 ml Q15M PRN IV DECREASED GLUCOSE; Start 08/21/18 at 16:30 Glucagon (Glucagen) 1 mg Q15M PRN IM DECREASED GLUCOSE; Start 08/21/18 at 16:30 Glucose (Glutose) 15 gm Q15M PRN BUCCAL DECREASED GLUCOSE; Start 08/21/18 at 16:30 Piperacillin Sod/ Tazobactam Sod 50 ml @ 100 mls/hr Q8 IVPB Last administered on 08/29/18at 05:37; Admin Dose 100 MLS/HR; Start 08/23/18 at 14:00 Heparin Sodium (Porcine) (Heparin (1000 Units/ml)) 3,000 unit AFTER DIALYSIS CATHETER Last administered on 08/27/18at 11:29; Admin Dose 3,000 UNIT; Start 08/23/18 at 13:30 Metoprolol Tartrate (Lopressor) 25 mg BID PO Last administered on 08/29/18at 08:53; Admin Dose 25 MG; Start 08/23/18 at 21:00 Epinephrine (Racepinephrine 2.25% (Neb)) 0.25 ml Q3H RESP THERAPY PRN HHN STRIDOR; Start 08/23/18 at 17:00 Lansoprazole (Prevacid) 30 mg 0600,1800 GTB Last administered on 08/29/18at 06:51; Admin Dose 30 MG; Start 08/24/18 at 18:00 Ondansetron HCl (Zofran Inj) 4 mg Q6H PRN IV NAUSEA AND/OR VOMITING Last administered on 08/25/18at 21:47; Admin Dose 4 MG; Start 08/25/18 at 21:30 Diagnostic Test (Pha) (Accu-Chek) 1 XX ; Start 08/27/18 at 02:00 Insulin Aspart (Novolog Insulin Pen) NOVOLOG *MILD* ALGORITHM WITH MEALS BEDTIME SC Last administered on 08/28/18at 12:44; Admin Dose 1 UNIT; Start 08/26/18 at 21:00 Vancomycin HCl (Vanco Iv Per Pharmacy) VANCOMYCIN PER PHARMACY PER PROTOCOL XX ; Start 08/27/18 at 11:30 Heparin Sodium (Porcine) (Heparin (5000 Units/1ml)) 5,000 unit Q8 SC ; Start 08/29/18 at 14:00 MAXIMO TAY MD Aug 29, 2018 12:22
[2018-08-29] MEDS ORDERED: ALBUMIN HUMAN 25% 50 ML IV PRN (12:30)
--- NOTE | 2018-08-29 14:23 | CONS ---
Date/Time of Note Date/Time of Note DATE: 08/29/18 TIME: 14:21 Assessment/Plan Assessment/Plan Chief Complaint/Hosp Course In hemodialysis, awake, looks comfortable, no fevers overnight WBC 19.5 platelets 79.8 Microbiology: Blood culture sent 2 days ago growing gram-positive cocci Indwelling: Right IJ triple-lumen catheter, Right femoral Saurabh, Suh Antimicrobials: Vancomycin, Zosyn Chest x-ray revealed worsening airspace opacification at the left lung base Physical examination: Well-nourished well-developed middle-aged man who is in no distress. Head atraumatic normocephalic sclera nonicteric. Neck is supple chest rise symmetrical breath sounds diminished bases. Heart: S1-S2, tachycardic. Abdomen soft bowel sounds present. Extremities with bilateral edema Assessment: 1. Persistent leukocytosis with fevers and radiographic worsening, possible aspiration 2. Gram-positive cocci bacteremia possibly line sepsis 3. Status post acute encephalopathy 4. Status post acute hypoxemic respiratory failure 5. Pulmonary edema 6. Acute renal failure, on hemodialysis 7. Transaminitis, possibly shock liver 8. History of polysubstance abuse Plan: Clinically stable, we will will repeat blood cultures from Saurabh, consider to change lines, continue antibiotics, follow chest x-ray in a.m. Consultation Date/Type/Reason Admit Date/Time Aug 20, 2018 at 21:39 Initial Consult Date 08/21/18 Type of Consult id Requesting Provider: QASIM BURROWS Exam/Review of Systems Vital Signs Vitals Vital Signs Date Temp Pulse Resp B/P (MAP) Pulse Ox O2 O2 Flow FiO2 Time Delivery Rate 08/29/18 95 13:30 08/29/18 Nasal 2.0 08:00 Cannula 08/29/18 99.0 18 118/71 97 08:00 (87) Intake and Output 08/28/18 08/28/18 08/29/18 1515:00 23:00 07:00 IntakeIntake Total 600 ml 840 ml OutputOutput Total 100 ml 100 ml BalanceBalance 500 ml 740 ml Medications Medications Current Medications Albuterol (Ventolin Hfa) 4 puff Q2H RESP THERAPY PRN INH SHORTNESS OF BREATH; Start 08/20/18 at 22:00 Ipratropium [place] (Atrovent Hfa) 4 puff Q2H RESP THERAPY PRN INH SHORTNESS OF BREATH; Start 08/20/18 at 22:00 Acetaminophen (Tylenol Liquid) 650 mg Q6H PRN PO PAIN LEVEL 1-3 OR FEVER Last administered on 08/27/18at 14:13; Admin Dose 650 MG; Start 08/20/18 at 22:00 Miscellaneous Information 1 ea NOTE XX ; Start 08/21/18 at 16:30 Glucose (Glutose) 15 gm Q15M PRN PO DECREASED GLUCOSE; Start 08/21/18 at 16:30 Glucose (Glutose) 22.5 gm Q15M PRN PO DECREASED GLUCOSE; Start 08/21/18 at 16:30 Dextrose (D50w Syringe) 25 ml Q15M PRN IV DECREASED GLUCOSE; Start 08/21/18 at 16:30 Dextrose (D50w Syringe) 50 ml Q15M PRN IV DECREASED GLUCOSE; Start 08/21/18 at 16:30 Glucagon (Glucagen) 1 mg Q15M PRN IM DECREASED GLUCOSE; Start 08/21/18 at 16:30 Glucose (Glutose) 15 gm Q15M PRN BUCCAL DECREASED GLUCOSE; Start 08/21/18 at 16:30 Piperacillin Sod/ Tazobactam Sod 50 ml @ 100 mls/hr Q8 IVPB Last administered on 08/29/18at 05:37; Admin Dose 100 MLS/HR; Start 08/23/18 at 14:00 Heparin Sodium (Porcine) (Heparin (1000 Units/ml)) 3,000 unit AFTER DIALYSIS CATHETER Last administered on 08/27/18at 11:29; Admin Dose 3,000 UNIT; Start 08/23/18 at 13:30 Metoprolol Tartrate (Lopressor) 25 mg BID PO Last administered on 08/29/18at 08:53; Admin Dose 25 MG; Start 08/23/18 at 21:00 Epinephrine (Racepinephrine 2.25% (Neb)) 0.25 ml Q3H RESP THERAPY PRN HHN STRIDOR; Start 08/23/18 at 17:00 Lansoprazole (Prevacid) 30 mg 0600,1800 GTB Last administered on 08/29/18at 06:51; Admin Dose 30 MG; Start 08/24/18 at 18:00 Ondansetron HCl (Zofran Inj) 4 mg Q6H PRN IV NAUSEA AND/OR VOMITING Last administered on 08/25/18at 21:47; Admin Dose 4 MG; Start 08/25/18 at 21:30 Diagnostic Test (Pha) (Accu-Chek) XX ; Start 08/27/18 at 02:00 Insulin Aspart (Novolog Insulin Pen) NOVOLOG *MILD* ALGORITHM WITH MEALS BEDTIME SC Last administered on 08/28/18at 12:44; Admin Dose 1 UNIT; Start 08/26/18 at 21:00 Vancomycin HCl (Vanco Iv Per Pharmacy) VANCOMYCIN PER PHARMACY PER PROTOCOL XX ; Start 08/27/18 at 11:30 Heparin Sodium (Porcine) (Heparin (5000 Units/1ml)) 5,000 unit Q8 SC ; Start 08/29/18 at 14:00 Epoetin Isacc (Epogen (Non Esrd/Non Oncology)) 10,000 units MoWeFr@17 SC ; Start 08/29/18 at 17:00 Albumin Human 50 ml @ 100 mls/hr DURING DIALYSIS PRN IV During HD. Last administered on 08/29/18at 13:55; Admin Dose 100 MLS/HR; Start 08/29/18 at 12:30 Vancomycin HCl 250 ml @ 125 mls/hr ONCE IVPB ; Start 08/30/18 at 22:00; Stop 08/30/18 at 23:59 BRIANNE COYLE NP Aug 29, 2018 14:23
--- NOTE | 2018-08-29 14:27 | CONS ---
Date/Time of Note Date/Time of Note DATE: 08/29/18 TIME: 14:26 Assessment/Plan Assessment/Plan Additional Assessment/Plan Acute respiratory failure status post extubation Low normal left ventricular ejection fraction 50% Sepsis Acute kidney injury on hemodialysis Myocardial infarction, likely type II Liver dysfunction Illicit drug use -Given improvement in platelet count, would start aspirin if no contraindication. No statin given abnormal LFTs. Continue beta-kishan as tolerated. Fluid management via hemodialysis as per nephrology Consultation Date/Type/Reason Admit Date/Time Aug 20, 2018 at 21:39 Initial Consult Date 08/21/18 Type of Consult cv Requesting Provider: QASIM BURROWS 24 HR Interval Summary Free Text/Dictation Denies chest pain, shortness of breath or palpitations Exam/Review of Systems Vital Signs Vitals Vital Signs Date Temp Pulse Resp B/P (MAP) Pulse Ox O2 O2 Flow FiO2 Time Delivery Rate 08/29/18 90 14:00 08/29/18 Nasal 2.0 08:00 Cannula 08/29/18 99.0 18 118/71 97 08:00 (87) Intake and Output 08/28/18 08/28/18 08/29/18 1515:00 23:00 07:00 IntakeIntake Total 600 ml 840 ml OutputOutput Total 100 ml 100 ml BalanceBalance 500 ml 740 ml Exam Following commands, undergoing hemodialysis Constitutional: alert Head: normocephalic Respiratory: other (Coarse breath sounds bilaterally, no wheezing) Cardiovascular: regular rate and rhythm, other (S1-S2 heard) Gastrointestinal: soft, non-tender, bowel sounds Extremities: edema Medications Medications Current Medications Albuterol (Ventolin Hfa) 4 puff Q2H RESP THERAPY PRN INH SHORTNESS OF BREATH; Start 08/20/18 at 22:00 Ipratropium [place] (Atrovent Hfa) 4 puff Q2H RESP THERAPY PRN INH SHORTNESS OF BREATH; Start 08/20/18 at 22:00 Acetaminophen (Tylenol Liquid) 650 mg Q6H PRN PO PAIN LEVEL 1-3 OR FEVER Last administered on 08/27/18at 14:13; Admin Dose 650 MG; Start 08/20/18 at 22:00 Miscellaneous Information 1 ea NOTE XX ; Start 08/21/18 at 16:30 Glucose (Glutose) 15 gm Q15M PRN PO DECREASED GLUCOSE; Start 08/21/18 at 16:30 Glucose (Glutose) 22.5 gm Q15M PRN PO DECREASED GLUCOSE; Start 08/21/18 at 16:30 Dextrose (D50w Syringe) 25 ml Q15M PRN IV DECREASED GLUCOSE; Start 08/21/18 at 16:30 Dextrose (D50w Syringe) 50 ml Q15M PRN IV DECREASED GLUCOSE; Start 08/21/18 at 16:30 Glucagon (Glucagen) 1 mg Q15M PRN IM DECREASED GLUCOSE; Start 08/21/18 at 16:30 Glucose (Glutose) 15 gm Q15M PRN BUCCAL DECREASED GLUCOSE; Start 08/21/18 at 16:30 Piperacillin Sod/ Tazobactam Sod 50 ml @ 100 mls/hr Q8 IVPB Last administered on 08/29/18at 05:37; Admin Dose 100 MLS/HR; Start 08/23/18 at 14:00 Heparin Sodium (Porcine) (Heparin (1000 Units/ml)) 3,000 unit AFTER DIALYSIS CATHETER Last administered on 08/27/18at 11:29; Admin Dose 3,000 UNIT; Start 08/23/18 at 13:30 Metoprolol Tartrate (Lopressor) 25 mg BID PO Last administered on 08/29/18at 08:53; Admin Dose 25 MG; Start 08/23/18 at 21:00 Epinephrine (Racepinephrine 2.25% (Neb)) 0.25 ml Q3H RESP THERAPY PRN HHN STRIDOR; Start 08/23/18 at 17:00 Lansoprazole (Prevacid) 30 mg 0600,1800 GTB Last administered on 08/29/18at 06:51; Admin Dose 30 MG; Start 08/24/18 at 18:00 Ondansetron HCl (Zofran Inj) 4 mg Q6H PRN IV NAUSEA AND/OR VOMITING Last administered on 08/25/18at 21:47; Admin Dose 4 MG; Start 08/25/18 at 21:30 Diagnostic Test (Pha) (Accu-Chek) 1 ea 02 XX ; Start 08/27/18 at 02:00 Insulin Aspart (Novolog Insulin Pen) NOVOLOG *MILD* ALGORITHM WITH MEALS BEDTIME SC Last administered on 08/28/18at 12:44; Admin Dose 1 UNIT; Start 08/26/18 at 21:00 Vancomycin HCl (Vanco Iv Per Pharmacy) VANCOMYCIN PER PHARMACY PER PROTOCOL XX ; Start 08/27/18 at 11:30 Heparin Sodium (Porcine) (Heparin (5000 Units/1ml)) 5,000 unit Q8 SC ; Start 08/29/18 at 14:00 Epoetin Isacc (Epogen (Non Esrd/Non Oncology)) 10,000 units MoWeFr@17 SC ; Start 08/29/18 at 17:00 Albumin Human 50 ml @ 100 mls/hr DURING DIALYSIS PRN IV During HD. Last administered on 08/29/18at 13:55; Admin Dose 100 MLS/HR; Start 08/29/18 at 12:30 Vancomycin HCl 250 ml @ 125 mls/hr ONCE IVPB ; Start 08/30/18 at 22:00; Stop 08/30/18 at 23:59 Kana Phoenix DO Aug 29, 2018 14:27
[2018-08-29] MEDS: HEPARIN 1000 UNITS/ML 10 ML INJ CATHETER SCH (15:36)
[2018-08-29] MEDS: HEPARIN 5,000 UNIT/1 ML VIAL SC SCH ×2 (15:54→21:46)
[2018-08-29] MEDS: EPOETIN 10000 UNITS/ML (NON ESRD/NON ONCOLOGY) SC SCH (17:12)
[2018-08-30] MEDS: ACCU-CHEK XX SCH (01:28)
[2018-08-30 02:06] VITALS: BP 116/62; PULSE 86; RESP 18
[2018-08-30] MEDS: PIPER-TAZO 2.25 GM (PMX) 50 ML IVPB SCH ×2 (05:18→13:33)
[2018-08-30] MEDS: LANSOPRAZOLE 30 MG CAP GTB SCH ×2 (05:18→17:26)
[2018-08-30] MEDS: HEPARIN 5,000 UNIT/1 ML VIAL SC SCH ×3 (05:26→21:19)
[2018-08-30 07:32] VITALS: BP 114/59; PULSE 89; RESP 16
[2018-08-30] MEDS: INSULIN ASPART [NOVOLOG] 3 ML PEN SC SCH ×4 (08:00→20:29)
[2018-08-30] MEDS: ASPIRIN 81 MG TAB PO SCH (08:34)
[2018-08-30] MEDS: METOPROLOL 25 MG TAB PO SCH ×2 (08:34→20:12)
--- NOTE | 2018-08-30 10:45 | CONS ---
Date/Time of Note Date/Time of Note DATE: 08/30/18 TIME: 10:43 Assessment/Plan Assessment/Plan Additional Assessment/Plan 1. ARF, will plan on hd tomm 2. Still vol overloaded 3. Bacteremia, Staph epi ? cont abx 4. Elev P, will start P binder. Consultation Date/Type/Reason Admit Date/Time Aug 20, 2018 at 21:39 Initial Consult Date 08/21/18 Requesting Provider: QASIM BURROWS 24 HR Interval Summary Constitutional: other (remains somnolent, father states was alert earlier) Exam/Review of Systems Vital Signs Vitals Vital Signs Date Temp Pulse Resp B/P (MAP) Pulse Ox O2 O2 Flow FiO2 Time Delivery Rate 08/30/18 98.4 89 16 114/59 99 Nasal 07:32 (77) Cannula 08/29/18 2.0 21:00 Intake and Output 08/29/18 08/29/18 08/30/18 1515:00 23:00 07:00 IntakeIntake Total 240 ml 150 ml 50 ml OutputOutput Total 450 ml 30 ml BalanceBalance -210 ml 150 ml 20 ml Exam Neck: No jvd Respiratory: clear to auscultation, diminished breath sounds Cardiovascular: regular rate and rhythm Gastrointestinal: soft Extremities: edema (sacral 2-3+) Medications Medications Current Medications Albuterol (Ventolin Hfa) 4 puff Q2H RESP THERAPY PRN INH SHORTNESS OF BREATH; Start 08/20/18 at 22:00 Ipratropium [place] (Atrovent Hfa) 4 puff Q2H RESP THERAPY PRN INH SHORTNESS OF BREATH; Start 08/20/18 at 22:00 Acetaminophen (Tylenol Liquid) 650 mg Q6H PRN PO PAIN LEVEL 1-3 OR FEVER Last administered on 08/27/18at 14:13; Admin Dose 650 MG; Start 08/20/18 at 22:00 Miscellaneous Information 1 ea NOTE XX ; Start 08/21/18 at 16:30 Glucose (Glutose) 15 gm Q15M PRN PO DECREASED GLUCOSE; Start 08/21/18 at 16:30 Glucose (Glutose) 22.5 gm Q15M PRN PO DECREASED GLUCOSE; Start 08/21/18 at 16:30 Dextrose (D50w Syringe) 25 ml Q15M PRN IV DECREASED GLUCOSE; Start 08/21/18 at 16:30 Dextrose (D50w Syringe) 50 ml Q15M PRN IV DECREASED GLUCOSE; Start 08/21/18 at 16:30 Glucagon (Glucagen) 1 mg Q15M PRN IM DECREASED GLUCOSE; Start 08/21/18 at 16:30 Glucose (Glutose) 15 gm Q15M PRN BUCCAL DECREASED GLUCOSE; Start 08/21/18 at 16:30 Piperacillin Sod/ Tazobactam Sod 50 ml @ 100 mls/hr Q8 IVPB Last administered on 08/30/18at 05:18; Admin Dose 100 MLS/HR; Start 08/23/18 at 14:00 Heparin Sodium (Porcine) (Heparin (1000 Units/ml)) 3,000 unit AFTER DIALYSIS CATHETER Last administered on 08/29/18at 15:36; Admin Dose 3,000 UNIT; Start 08/23/18 at 13:30 Metoprolol Tartrate (Lopressor) 25 mg BID PO Last administered on 08/30/18at 08:34; Admin Dose 25 MG; Start 08/23/18 at 21:00 Epinephrine (Racepinephrine 2.25% (Neb)) 0.25 ml Q3H RESP THERAPY PRN HHN STRIDOR; Start 08/23/18 at 17:00 Lansoprazole (Prevacid) 30 mg 0600,1800 GTB Last administered on 08/30/18at 05:18; Admin Dose 30 MG; Start 08/24/18 at 18:00 Ondansetron HCl (Zofran Inj) 4 mg Q6H PRN IV NAUSEA AND/OR VOMITING Last administered on 08/25/18at 21:47; Admin Dose 4 MG; Start 08/25/18 at 21:30 Diagnostic Test (Pha) (Accu-Chek) 1 02 XX ; Start 08/27/18 at 02:00 Insulin Aspart (Novolog Insulin Pen) NOVOLOG *MILD* ALGORITHM WITH MEALS BEDTIME SC Last administered on 08/28/18at 12:44; Admin Dose 1 UNIT; Start 08/26/18 at 21:00 Vancomycin HCl (Vanco Iv Per Pharmacy) VANCOMYCIN PER PHARMACY PER PROTOCOL XX ; Start 08/27/18 at 11:30 Heparin Sodium (Porcine) (Heparin (5000 Units/1ml)) 5,000 unit Q8 SC Last administered on 08/30/18at 05:26; Admin Dose 5,000 UNIT; Start 08/29/18 at 14:00 Epoetin Isacc (Epogen (Non Esrd/Non Oncology)) 10,000 units MoWeFr@17 SC Last administered on 08/29/18at 17:12; Admin Dose 10,000 UNITS; Start 08/29/18 at 17:00 Albumin Human 50 ml @ 100 mls/hr DURING DIALYSIS PRN IV During HD. Last administered on 08/29/18at 13:55; Admin Dose 100 MLS/HR; Start 08/29/18 at 12:30 Vancomycin HCl 250 ml @ 125 mls/hr ONCE IVPB ; Start 08/30/18 at 22:00; Stop 08/30/18 at 23:59 Aspirin (Aspirin) 81 mg DAILY PO Last administered on 08/30/18at 08:34; Admin Dose 81 MG; Start 08/30/18 at 09:00 MAXIMO TAY MD Aug 30, 2018 10:45
[2018-08-30] MEDS: CALCIUM ACETATE 667 MG CAP GTB SCH ×2 (11:10→17:18)
[2018-08-30] MEDS: ACETAMINOPHEN 650MG/20.3ML CUP PO PRN ×2 (11:11→20:12)
--- NOTE | 2018-08-30 11:14 | PN ---
Date/Time of Note Date/Time of Note DATE: 08/30/18 TIME: 11:01 Assessment/Plan VTE Prophylaxis Risk score (from Ns)>0 risk: 7 SCD applied (from Ns): Yes Pharmacological prophylaxis: heparin Lines/Catheters IV Catheter Type (from Nrs): Saline Lock Urinary Cath still in place: Yes Reason Cath still needed: other (indicate) (oliguric) Assessment/Plan Assessment/Plan 33 yo man brought in found down with subsequent JULIAN secondary to rhabdomyolysis; positive for alcohol, methamphetamine, cannabis, opioids as well. # Renal failure- Oliguric renal failure with hyperkalemia (after potassium replacement), also presented with severe metabolic acidosis - Likely due to a combination of rhabdo and drug use. CK level still slightly elevated, but trending down now the last few days - Continue dialysis per renal recommendations #Encephalopathy - Despite extubation on 08/24, he remains very lethargic and somnolent. - Head CT 08/20 negative - Will check ammonia and AM cortisol. #Bacteremia - Had fever on 08/27. - Blood culture (x1 unfortunately) from that day is growing coag negative staph, a common contaminant - Currently on vanco - Will D/C right IJ. But his femoral dialysis catheter may also be a source of infection. - Will defer to ID. # acute ventilatory dependent respiratory failure - extubated 08/24, was likely secondary to polysubstance overdose resulting in multiorgan dysfunction; patient had subsequent severe metabolic acidosis with inadequate respiratory compensation-now oxygen levels stable on nasal cannula supplementation -For now continue zosyn for possible community-acquired pneumonia-white blood cell count still elevated, follow-up CBC daily. -Follow-up pulmonary recommendations -PT eval # Acute encephalopathy: -Slowly improving, from polysubstance abuse-no present signs of withdrawal -Monitor # Elevated troponin-now appears stable- CV consulted earlier this admission. Likely demand ischemia from drug use. - Will not treat per NSTEMI protocol, monitor, follow-up cardiology recommendations # transaminitis: - May be from shock liver or drug use.- Hep B, Hep C negative. LFTs have been slowly trending down over the last 3-4 days -Continue to monitor LFTs # Rhabdomyolysis: -See above secondary to patient found down as well as polysubstance abuse - again now requiring dialysis. Again CK levels still overall slightly elevated, but trending down the last 4-5 days -Monitor CK levels # Coagulopathy- May be due to liver and renal injury as well as drug use- No DIC - Will watch closely, monitor CBC, follow-up hematology oncology recommendation # polysubstance abuse - Again patient was found to be positive for opioids, methamphetamine, marijuana and an elevated blood alcohol level. -Earlier this admission ordered for thiamine 300 mg IM daily times 3 days, further treatment as per the clinical course # DVT and GI prophylaxis: Protonix twice daily Dispo: Patient may need snf facility placement, continue physical therapy daily. He is to follow-up with renal team about the need for outpatient dialysis Result Diagram: 08/30/18 0448 08/30/18 0448 Results 24hrs Laboratory Tests Test 08/29/18 12:05 08/29/18 17:15 08/29/18 20:49 08/30/18 04:48 Bedside Glucose 138 117 126 White Blood 19.5 H Count Red Blood Count 2.99 L Hemoglobin 9.6 L Hematocrit 27.9 L Mean Corpuscular 93.3 Volume Mean Corpuscular 32.1 Hemoglobin Mean Corpuscular 34.4 Hemoglobin Monica nt Red Cell 13.2 Distribution Width Platelet Count 319 Mean Platelet 11.9 H Volume Immature 2.600 H Granulocytes % Neutrophils % 80.7 H Lymphocytes % 5.9 L Monocytes % 6.1 Eosinophils % 4.4 Basophils % 0.3 Nucleated Red 0.0 Blood Cells % Immature 0.500 H Granulocytes # Neutrophils # 15.7 H Lymphocytes # 1.1 Monocytes # 1.2 H Eosinophils # 0.9 H Basophils # 0.1 Nucleated Red 0.0 Blood Cells # Sodium Level 136 Potassium Level 4.3 Chloride Level 96 L Carbon Dioxide 25 Level Anion Gap 15 H Blood Urea 77 H Nitrogen Creatinine 8.32 H Est Glomerular 7 L Filtrat Rate mL/min Glucose Level 109 Calcium Level 7.6 L Phosphorus Level 9.2 H Iron Level 35 Total Iron 234 L Binding Capacity Percent Iron 15 L Saturation Ferritin 227.0 Creatine Kinase 419 #H Vitamin B12 961 H Level Thyroid 3.000 Stimulating Hormone (TSH) Test 08/30/18 08:33 Bedside Glucose 117 Subjective 24 Hr Interval Summary Free Text/Dictation No acute overnight events. Father was at bedside today. I updated him on the patient's status and the plan. He gave additional history that the patient had been using drugs heavily since his separation from his partner. Exam/Review of Systems Vital Signs Vitals Vital Signs Date Temp Pulse Resp B/P (MAP) Pulse Ox O2 O2 Flow FiO2 Time Delivery Rate 08/30/18 98.4 89 16 114/59 99 Nasal 07:32 (77) Cannula 08/29/18 2.0 21:00 Intake and Output 08/29/18 08/29/18 08/30/18 1515:00 23:00 07:00 IntakeIntake Total 240 ml 150 ml 50 ml OutputOutput Total 450 ml 30 ml BalanceBalance -210 ml 150 ml 20 ml Exam Gen: Lying in bed, no acute distress, nasal cannula in place. Eyes: Pupils equal round reactive to light, extraocular muscles intact HEENT: moist mucous membranes, Card: Regular rate and rhythm no murmurs Pulm: Clear breath sounds bilaterally, no crackles. Abd: Soft, nondistended. Ext: Bilateral upper arms with tense edema. Neuro: Very somnolent. Arousable with forceful verbal stimulation. Opens eyes. Answers some questions with single-syllable answers. Does not follow commands. Medications Medications Current Medications Albuterol (Ventolin Hfa) 4 puff Q2H RESP THERAPY PRN INH SHORTNESS OF BREATH; Start 08/20/18 at 22:00 Ipratropium [place] (Atrovent Hfa) 4 puff Q2H RESP THERAPY PRN INH SHORTNESS OF BREATH; Start 08/20/18 at 22:00 Acetaminophen (Tylenol Liquid) 650 mg Q6H PRN PO PAIN LEVEL 1-3 OR FEVER Last administered on 08/27/18at 14:13; Admin Dose 650 MG; Start 08/20/18 at 22:00 Miscellaneous Information 1 ea NOTE XX ; Start 08/21/18 at 16:30 Glucose (Glutose) 15 gm Q15M PRN PO DECREASED GLUCOSE; Start 08/21/18 at 16:30 Glucose (Glutose) 22.5 gm Q15M PRN PO DECREASED GLUCOSE; Start 08/21/18 at 16:30 Dextrose (D50w Syringe) 25 ml Q15M PRN IV DECREASED GLUCOSE; Start 08/21/18 at 16:30 Dextrose (D50w Syringe) 50 ml Q15M PRN IV DECREASED GLUCOSE; Start 08/21/18 at 16:30 Glucagon (Glucagen) 1 mg Q15M PRN IM DECREASED GLUCOSE; Start 08/21/18 at 16:30 Glucose (Glutose) 15 gm Q15M PRN BUCCAL DECREASED GLUCOSE; Start 08/21/18 at 16:30 Piperacillin Sod/ Tazobactam Sod 50 ml @ 100 mls/hr Q8 IVPB Last administered on 08/30/18at 05:18; Admin Dose 100 MLS/HR; Start 08/23/18 at 14:00 Heparin Sodium (Porcine) (Heparin (1000 Units/ml)) 3,000 unit AFTER DIALYSIS CATHETER Last administered on 08/29/18at 15:36; Admin Dose 3,000 UNIT; Start 08/23/18 at 13:30 Metoprolol Tartrate (Lopressor) 25 mg BID PO Last administered on 08/30/18at 08:34; Admin Dose 25 MG; Start 08/23/18 at 21:00 Epinephrine (Racepinephrine 2.25% (Neb)) 0.25 ml Q3H RESP THERAPY PRN HHN STRIDOR; Start 08/23/18 at 17:00 Lansoprazole (Prevacid) 30 mg 0600,1800 GTB Last administered on 08/30/18at 05:18; Admin Dose 30 MG; Start 08/24/18 at 18:00 Ondansetron HCl (Zofran Inj) 4 mg Q6H PRN IV NAUSEA AND/OR VOMITING Last administered on 08/25/18at 21:47; Admin Dose 4 MG; Start 08/25/18 at 21:30 Diagnostic Test (Pha) (Accu-Chek) 1 ea 02 XX ; Start 08/27/18 at 02:00 Insulin Aspart (Novolog Insulin Pen) NOVOLOG *MILD* ALGORITHM WITH MEALS BEDTIME SC Last administered on 08/28/18at 12:44; Admin Dose 1 UNIT; Start 08/26/18 at 21:00 Vancomycin HCl (Vanco Iv Per Pharmacy) VANCOMYCIN PER PHARMACY PER PROTOCOL XX ; Start 08/27/18 at 11:30 Heparin Sodium (Porcine) (Heparin (5000 Units/1ml)) 5,000 unit Q8 SC Last administered on 08/30/18at 05:26; Admin Dose 5,000 UNIT; Start 08/29/18 at 1 4:00 Epoetin Isacc (Epogen (Non Esrd/Non Oncology)) 10,000 units MoWeFr@17 SC Last administered on 08/29/18at 17:12; Admin Dose 10,000 UNITS; Start 08/29/18 at 17:00 Albumin Human 50 ml @ 100 mls/hr DURING DIALYSIS PRN IV During HD. Last administered on 08/29/18at 13:55; Admin Dose 100 MLS/HR; Start 08/29/18 at 12:30 Vancomycin HCl 250 ml @ 125 mls/hr ONCE IVPB ; Start 08/30/18 at 22:00; Stop 08/30/18 at 23:59 Aspirin (Aspirin) 81 mg DAILY PO Last administered on 08/30/18at 08:34; Admin D ose 81 MG; Start 08/30/18 at 09:00 Calcium Acetate (Phoslo) 667 mg WITH MEALS GTB ; Start 08/30/18 at 12:00 YUMIKO JC MD Aug 30, 2018 11:12
[2018-08-30 13:56] VITALS: BP 106/57; PULSE 77; RESP 18
--- NOTE | 2018-08-30 14:58 | CONS ---
Date/Time of Note Date/Time of Note DATE: 08/30/18 TIME: 14:57 Assessment/Plan Assessment/Plan Chief Complaint/Hosp Course Awake, looks comfortable, no fevers overnight, right IJ triple-lumen catheter was discontinued WBC 19.5 platelets 319 neutrophils 80.7 Microbiology: Blood culture repeated yesterday negative Chest x-ray this morning revealed decreased bibasilar infiltrates Indwelling: Right femoral Saurabh, Suh Antimicrobials: Vancomycin, Zosyn Physical examination: Well-nourished well-developed middle-aged man who is in no distress. Head atraumatic normocephalic sclera nonicteric. Neck is supple chest rise symmetrical breath sounds diminished bases. Heart: S1-S2, tachycardic. Abdomen soft bowel sounds present. Extremities with bilateral edema Assessment: 1. Persistent leukocytosis, s/p fevers 2. Gram-positive cocci bacteremia, possibly line sepsis, s/p TLC dc'd 3. Status post acute encephalopathy 4. Status post acute hypoxemic respiratory failure 5. Pulmonary edema 6. Acute renal failure, on hemodialysis 7. Transaminitis, possibly shock liver 8. History of polysubstance abuse Plan: Clinically stable, continue vancomycin, DC Zosyn, await for repeat and final cultures DW pt/family at bedside Consultation Date/Type/Reason Admit Date/Time Aug 20, 2018 at 21:39 Initial Consult Date 08/21/18 Type of Consult id Requesting Provider: QASIM BURROWS Exam/Review of Systems Vital Signs Vitals Vital Signs Date Temp Pulse Resp B/P (MAP) Pulse Ox O2 O2 Flow FiO2 Time Delivery Rate 08/30/18 99.0 77 18 106/57 100 Nasal 13:56 (73) Cannula 08/30/18 2.0 08:00 Intake and Output 08/29/18 08/29/18 08/30/18 1414:59 22:59 06:59 IntakeIntake Total 240 ml 150 ml 50 ml OutputOutput Total 350 ml 200 ml 30 ml BalanceBalance -110 ml -50 ml 20 ml Medications Medications Current Medications Albuterol (Ventolin Hfa) 4 puff Q2H RESP THERAPY PRN INH SHORTNESS OF BREATH; Start 08/20/18 at 22:00 Ipratropium [place] (Atrovent Hfa) 4 puff Q2H RESP THERAPY PRN INH SHORTNESS OF BREATH; Start 08/20/18 at 22:00 Acetaminophen (Tylenol Liquid) 650 mg Q6H PRN PO PAIN LEVEL 1-3 OR FEVER Last administered on 08/30/18at 11:11; Admin Dose 650 MG; Start 08/20/18 at 22:00 Miscellaneous Information 1 ea NOTE XX ; Start 08/21/18 at 16:30 Glucose (Glutose) 15 gm Q15M PRN PO DECREASED GLUCOSE; Start 08/21/18 at 16:30 Glucose (Glutose) 22.5 gm Q15M PRN PO DECREASED GLUCOSE; Start 08/21/18 at 16:30 Dextrose (D50w Syringe) 25 ml Q15M PRN IV DECREASED GLUCOSE; Start 08/21/18 at 16:30 Dextrose (D50w Syringe) 50 ml Q15M PRN IV DECREASED GLUCOSE; Start 08/21/18 at 16:30 Glucagon (Glucagen) 1 mg Q15M PRN IM DECREASED GLUCOSE; Start 08/21/18 at 16:30 Glucose (Glutose) 15 gm Q15M PRN BUCCAL DECREASED GLUCOSE; Start 08/21/18 at 16:30 Piperacillin Sod/ Tazobactam Sod 50 ml @ 100 mls/hr Q8 IVPB Last administered on 08/30/18at 13:33; Admin Dose 100 MLS/HR; Start 08/23/18 at 14:00 Heparin Sodium (Porcine) (Heparin (1000 Units/ml)) 3,000 unit AFTER DIALYSIS CATHETER Last administered on 08/29/18at 15:36; Admin Dose 3,000 UNIT; Start 08/23/18 at 13:30 Metoprolol Tartrate (Lopressor) 25 mg BID PO Last administered on 08/30/18at 08:34; Admin Dose 25 MG; Start 08/23/18 at 21:00 Epinephrine (Racepinephrine 2.25% (Neb)) 0.25 ml Q3H RESP THERAPY PRN HHN STRIDOR; Start 08/23/18 at 17:00 Lansoprazole (Prevacid) 30 mg 0600,1800 GTB Last administered on 08/30/18at 05:18; Admin Dose 30 MG; Start 08/24/18 at 18:00 Ondansetron HCl (Zofran Inj) 4 mg Q6H PRN IV NAUSEA AND/OR VOMITING Last administered on 08/25/18at 21:47; Admin Dose 4 MG; Start 08/25/18 at 21:30 Diagnostic Test (Pha) (Accu-Chek) 1 XX ; Start 08/27/18 at 02:00 Insulin Aspart (Novolog Insulin Pen) NOVOLOG *MILD* ALGORITHM WITH MEALS BEDTIME SC Last administered on 08/28/18at 12:44; Admin Dose 1 UNIT; Start 08/26/18 at 21:00 Vancomycin HCl (Vanco Iv Per Pharmacy) VANCOMYCIN PER PHARMACY PER PROTOCOL XX ; Start 08/27/18 at 11:30 Heparin Sodium (Porcine) (Heparin (5000 Units/1ml)) 5,000 unit Q8 SC Last administered on 08/30/18at 13:34; Admin Dose 5,000 UNIT; Start 08/29/18 at 14:00 Epoetin Isacc (Epogen (Non Esrd/Non Oncology)) 10,000 units MoWeFr@17 SC Last administered on 08/29/18at 17:12; Admin Dose 10,000 UNITS; Start 08/29/18 at 17:00 Albumin Human 50 ml @ 100 mls/hr DURING DIALYSIS PRN IV During HD. Last administered on 08/29/18at 13:55; Admin Dose 100 MLS/HR; Start 08/29/18 at 12:30 Vancomycin HCl 250 ml @ 125 mls/hr ONCE IVPB ; Start 08/30/18 at 22:00; Stop 08/30/18 at 23:59 Aspirin (Aspirin) 81 mg DAILY PO Last administered on 08/30/18at 08:34; Admin Dose 81 MG; Start 08/30/18 at 09:00 Calcium Acetate (Phoslo) 667 mg WITH MEALS GTB Last administered on 08/30/18at 11:10; Admin Dose 667 MG; Start 08/30/18 at 12:00 BRIANNE COYLE NP Aug 30, 2018 14:58
[2018-08-30 19:55] VITALS: BP 110/62; PULSE 78; RESP 18
[2018-08-30] MEDS ORDERED: VANCOMYCIN 1 GM 250 ML IVPB SCH (22:00)
[2018-08-31] VITALS (17 sets, daily range): BP systolic 102–135; BP diastolic 55–73; PULSE 50–97; RESP 18–20
[2018-08-31] MEDS: ACCU-CHEK XX SCH (01:35)
[2018-08-31] MEDS: LANSOPRAZOLE 30 MG CAP GTB SCH ×2 (05:37→17:49)
[2018-08-31] MEDS: HEPARIN 5,000 UNIT/1 ML VIAL SC SCH ×3 (05:41→21:15)
[2018-08-31] MEDS: INSULIN ASPART [NOVOLOG] 3 ML PEN SC SCH ×4 (08:00→21:00)
--- NOTE | 2018-08-31 10:06 | CONS ---
Date/Time of Note Date/Time of Note DATE: 08/31/18 TIME: 10:02 Assessment/Plan Assessment/Plan Assessment/Plan 1. ARF without recovery 2. Catabolic as BUN remains elevated despite almost daily hd, will plan on same tomm 3. Profound muscle weakness, unclear why 4. Vol overloaded 5. New infiltrate on cxr, abx in place 6. Elev P, P binder increased Result Diagram: 08/31/18 0623 08/31/18 0623 Results 24hrs Laboratory Tests Test 08/30/18 11:39 08/30/18 12:38 08/30/18 17:21 08/30/18 20:29 Ammonia 16 Bedside Glucose 123 125 118 Test 08/31/18 06:23 08/31/18 08:57 White Blood 16.7 H Count Red Blood Count 2.74 L Hemoglobin 8.9 L Hematocrit 25.5 L Mean Corpuscular 93.1 Volume Mean Corpuscular 32.5 Hemoglobin Mean Corpuscular 34.9 Hemoglobin Monica nt Red Cell 13.0 Distribution Width Platelet Count 342 Mean Platelet 11.4 H Volume Immature 2.300 H Granulocytes % Neutrophils % 80.2 H Lymphocytes % 5.4 L Monocytes % 5.7 Eosinophils % 5.9 Basophils % 0.5 Nucleated Red 0.0 Blood Cells % Immature 0.380 H Granulocytes # Neutrophils # 13.4 H Lymphocytes # 0.9 Monocytes # 1.0 H Eosinophils # 1.0 H Basophils # 0.1 Nucleated Red 0.0 Blood Cells # Sodium Level 132 L Potassium Level 4.3 Chloride Level 93 L Carbon Dioxide 21 Level Anion Gap 18 H Blood Urea 95 H Nitrogen Creatinine 10.24 H Est Glomerular 6 L Filtrat Rate mL/min Glucose Level 120 Calcium Level 7.7 L Phosphorus Level 11.8 #H Random Cortisol 16.0 Bedside Glucose 109 Consultation Date/Type/Reason Admit Date/Time Aug 20, 2018 at 21:39 Initial Consult Date 08/21/18 Requesting Provider: QASIM BURROWS 24 HR Interval Summary Constitutional: other (More alert, comfortable) Exam/Review of Systems Vital Signs Vitals Vital Signs Date Temp Pulse Resp B/P (MAP) Pulse Ox O2 O2 Flow FiO2 Time Delivery Rate 08/31/18 76 09:51 08/31/18 20 120/67 100 Nasal 3.0 08:11 (84) Cannula 08/31/18 97.9 01:26 Intake and Output 08/30/18 08/30/18 08/31/18 1515:00 23:00 07:00 IntakeIntake Total 530 ml 360 ml 490 ml OutputOutput Total 50 ml 20 ml BalanceBalance 530 ml 310 ml 470 ml Exam Neck: No jvd Respiratory: clear to auscultation Cardiovascular: regular rate and rhythm Gastrointestinal: soft Extremities: edema (arms and sacrum 3+) Neurological: other (profoun weakness of all extrem and neck muscles) Medications Medications Current Medications Albuterol (Ventolin Hfa) 4 puff Q2H RESP THERAPY PRN INH SHORTNESS OF BREATH; Start 08/20/18 at 22:00 Ipratropium [place] (Atrovent Hfa) 4 puff Q2H RESP THERAPY PRN INH SHORTNESS OF BREATH; Start 08/20/18 at 22:00 Acetaminophen (Tylenol Liquid) 650 mg Q6H PRN PO PAIN LEVEL 1-3 OR FEVER Last administered on 08/30/18at 20:12; Admin Dose 650 MG; Start 08/20/18 at 22:00 Miscellaneous Information 1 ea NOTE XX ; Start 08/21/18 at 16:30 Glucose (Glutose) 15 gm Q15M PRN PO DECREASED GLUCOSE; Start 08/21/18 at 16:30 Glucose (Glutose) 22.5 gm Q15M PRN PO DECREASED GLUCOSE; Start 08/21/18 at 16:30 Dextrose (D50w Syringe) 25 ml Q15M PRN IV DECREASED GLUCOSE; Start 08/21/18 at 16:30 Dextrose (D50w Syringe) 50 ml Q15M PRN IV DECREASED GLUCOSE; Start 08/21/18 at 16:30 Glucagon (Glucagen) 1 mg Q15M PRN IM DECREASED GLUCOSE; Start 08/21/18 at 16:30 Glucose (Glutose) 15 gm Q15M PRN BUCCAL DECREASED GLUCOSE; Start 08/21/18 at 16:30 Heparin Sodium (Porcine) (Heparin (1000 Units/ml)) 3,000 unit AFTER DIALYSIS CATHETER Last administered on 08/29/18at 15:36; Admin Dose 3,000 UNIT; Start 08/23/18 at 13:30 Metoprolol Tartrate (Lopressor) 25 mg BID PO Last administered on 08/30/18at 20:12; Admin Dose 25 MG; Start 08/23/18 at 21:00 Epinephrine (Racepinephrine 2.25% (Neb)) 0.25 ml Q3H RESP THERAPY PRN HHN STRIDOR; Start 08/23/18 at 17:00 Lansoprazole (Prevacid) 30 mg 0600,1800 GTB Last administered on 08/31/18 05:37; Admin Dose 30 MG; Start 08/24/18 at 18:00 Ondansetron HCl (Zofran Inj) 4 mg Q6H PRN IV NAUSEA AND/OR VOMITING Last administered on 08/25/18at 21:47; Admin Dose 4 MG; Start 08/25/18 at 21:30 Diagnostic Test (Pha) (Accu-Chek) 1 02 XX ; Start 08/27/18 at 02:00 Insulin Aspart (Novolog Insulin Pen) NOVOLOG *MILD* ALGORITHM WITH MEALS BEDTIME SC Last administered on 08/28/18 12:44; Admin Dose 1 UNIT; Start 08/26/18 at 21:00 Vancomycin HCl (Vanco Iv Per Pharmacy) VANCOMYCIN PER PHARMACY PER PROTOCOL XX ; Start 08/27/18 at 11:30 Heparin Sodium (Porcine) (Heparin (5000 Units/1ml)) 5,000 unit Q8 SC Last administered on 08/31/18 05:41; Admin Dose 5,000 UNIT; Start 08/29/18 at 14:00 Epoetin Isacc (Epogen (Non Esrd/Non Oncology)) 10,000 units MoWeFr@17 SC Last administered on 08/29/18at 17:12; Admin Dose 10,000 UNITS; Start 08/29/18 at 17:00 Albumin Human 50 ml @ 100 mls/hr DURING DIALYSIS PRN IV During HD. Last administered on 08/29/18at 13:55; Admin Dose 100 MLS/HR; Start 08/29/18 at 12:30 Aspirin (Aspirin) 81 mg DAILY PO Last administered on 08/30/18 08:34; Admin Dose 81 MG; Start 08/30/18 at 09:00 Calcium Acetate (Phoslo) 667 mg WITH MEALS GTB Last administered on 08/30/18 17:18; Admin Dose 667 MG; Start 08/30/18 at 12:00 MAXIMO TAY MD Aug 31, 2018 10:05
[2018-08-31] MEDS ORDERED: HEPARIN 1000 UNITS/ML 10 ML INJ CATHETER ONE (11:30)
--- NOTE | 2018-08-31 12:30 | CONS ---
Date/Time of Note Date/Time of Note DATE: 08/31/18 TIME: 12:29 Assessment/Plan Assessment/Plan Hospital Course No acute events overnight patient is status post hemodialysis earlier today with 3 L being removed he is awake in no distress afebrile WBC 16.7 platelets 342 neutrophils 80.2 Microbiology: Repeated blood cultures negative Chest x-ray this morning revealed decreased bibasilar infiltrates Indwelling: Right femoral Saurabh, Suh Antimicrobials: Vancomycin Physical examination: Well-nourished well-developed middle-aged man who is in no distress. Head atraumatic normocephalic sclera nonicteric. Neck is supple chest rise symmetrical breath sounds diminished bases. Heart: S1-S2, tachycardic. Abdomen soft bowel sounds present. Extremities with bilateral edema Assessment: 1. Persistent leukocytosis, s/p fevers 2. Gram-positive cocci bacteremia, possibly line sepsis, s/p TLC dc'd 3. Status post acute encephalopathy 4. Status post acute hypoxemic respiratory failure 5. Pulmonary edema 6. Acute renal failure, on hemodialysis 7. Transaminitis, possibly shock liver 8. History of polysubstance abuse Plan: Clinically stable, continue present care, aspiration precautions, add oral nystatin, hemodialysis per renal Result Diagram: 08/31/18 0623 08/31/18 0623 Results 24hrs Laboratory Tests Test 08/30/18 12:38 08/30/18 17:21 08/30/18 20:29 08/31/18 06:23 Bedside Glucose 123 125 118 White Blood 16.7 H Count Red Blood Count 2.74 L Hemoglobin 8.9 L Hematocrit 25.5 L Mean Corpuscular 93.1 Volume Mean Corpuscular 32.5 Hemoglobin Mean Corpuscular 34.9 Hemoglobin Monica nt Red Cell 13.0 Distribution Width Platelet Count 342 Mean Platelet 11.4 H Volume Immature 2.300 H Granulocytes % Neutrophils % 80.2 H Lymphocytes % 5.4 L Monocytes % 5.7 Eosinophils % 5.9 Basophils % 0.5 Nucleated Red 0.0 Blood Cells % Immature 0.380 H Granulocytes # Neutrophils # 13.4 H Lymphocytes # 0.9 Monocytes # 1.0 H Eosinophils # 1.0 H Basophils # 0.1 Nucleated Red 0.0 Blood Cells # Sodium Level 132 L Potassium Level 4.3 Chloride Level 93 L Carbon Dioxide 21 Level Anion Gap 18 H Blood Urea 95 H Nitrogen Creatinine 10.24 H Est Glomerular 6 L Filtrat Rate mL/min Glucose Level 120 Calcium Level 7.7 L Phosphorus Level 11.8 #H Random Cortisol 16.0 Test 08/31/18 08:57 Bedside Glucose 109 Consultation Date/Type/Reason Admit Date/Time Aug 20, 2018 at 21:39 Initial Consult Date 08/21/18 Type of Consult id Requesting Provider: QASIM BURROWS Exam/Review of Systems Vital Signs Vitals Vital Signs Date Temp Pulse Resp B/P (MAP) Pulse Ox O2 O2 Flow FiO2 Time Delivery Rate 08/31/18 84 20 120/65 100 Nasal 3.0 11:34 (83) Cannula 08/31/18 97.9 01:26 Intake and Output 08/30/18 08/30/18 08/31/18 1414:59 22:59 06:59 IntakeIntake Total 530 ml 360 ml 490 ml OutputOutput Total 50 ml 20 ml BalanceBalance 530 ml 310 ml 470 ml Medications Medications Current Medications Albuterol (Ventolin Hfa) 4 puff Q2H RESP THERAPY PRN INH SHORTNESS OF BREATH; Start 08/20/18 at 22:00 Ipratropium [place] (Atrovent Hfa) 4 puff Q2H RESP THERAPY PRN INH SHORTNESS OF BREATH; Start 08/20/18 at 22:00 Acetaminophen (Tylenol Liquid) 650 mg Q6H PRN PO PAIN LEVEL 1-3 OR FEVER Last administered on 08/30/18at 20:12; Admin Dose 650 MG; Start 08/20/18 at 22:00 Miscellaneous Information 1 ea NOTE XX ; Start 08/21/18 at 16:30 Glucose (Glutose) 15 gm Q15M PRN PO DECREASED GLUCOSE; Start 08/21/18 at 16:30 Glucose (Glutose) 22.5 gm Q15M PRN PO DECREASED GLUCOSE; Start 08/21/18 at 16:30 Dextrose (D50w Syringe) 25 ml Q15M PRN IV DECREASED GLUCOSE; Start 08/21/18 at 16:30 Dextrose (D50w Syringe) 50 ml Q15M PRN IV DECREASED GLUCOSE; Start 08/21/18 at 16:30 Glucagon (Glucagen) 1 mg Q15M PRN IM DECREASED GLUCOSE; Start 08/21/18 at 16:30 Glucose (Glutose) 15 gm Q15M PRN BUCCAL DECREASED GLUCOSE; Start 08/21/18 at 16:30 Metoprolol Tartrate (Lopressor) 25 mg BID PO Last administered on 08/30/18at 20:12; Admin Dose 25 MG; Start 08/23/18 at 21:00 Epinephrine (Racepinephrine 2.25% (Neb)) 0.25 ml Q3H RESP THERAPY PRN HHN STRIDOR; Start 08/23/18 at 17:00 Lansoprazole (Prevacid) 30 mg 0600,1800 GTB Last administered on 08/31/18at 05 :37; Admin Dose 30 MG; Start 08/24/18 at 18:00 Ondansetron HCl (Zofran Inj) 4 mg Q6H PRN IV NAUSEA AND/OR VOMITING Last administered on 08/25/18at 21:47; Admin Dose 4 MG; Start 08/25/18 at 21:30 Diagnostic Test (Pha) (Accu-Chek) 1 ea 02 XX ; Start 08/27/18 at 02:00 Insulin Aspart (Novolog Insulin Pen) NOVOLOG *MILD* ALGORITHM WITH MEALS BEDTIME SC Last administered on 08/28/18at 12:44; Admin Dose 1 UNIT; Start 08/26/18 at 21:00 Vancomycin HCl (Vanco Iv Per Pharmacy) VANCOMYCIN PER PHARMACY PER PROTOCOL XX ; Start 08/27/18 at 11:30 Heparin Sodium (Porcine) (Heparin (5000 Units/1ml)) 5,000 unit Q8 SC Last administered on 08/31/18 05:41; Admin Dose 5,000 UNIT; Start 08/29/18 at 14: 00 Epoetin Isacc (Epogen (Non Esrd/Non Oncology)) 10,000 units MoWeFr@17 SC Last administered on 08/29/18at 17:12; Admin Dose 10,000 UNITS; Start 08/29/18 at 17:00 Albumin Human 50 ml @ 100 mls/hr DURING DIALYSIS PRN IV During HD. Last administered on 08/29/18at 13:55; Admin Dose 100 MLS/HR; Start 08/29/18 at 12:30 Aspirin (Aspirin) 81 mg DAILY PO Last administered on 08/30/18 08:34; Admin D ose 81 MG; Start 08/30/18 at 09:00 Calcium Acetate (Phoslo) 1,334 mg WITH MEALS GTB ; Start 08/31/18 at 12:00 BRIANNE COYLE NP Aug 31, 2018 12:30
--- NOTE | 2018-08-31 12:42 | CONS ---
Date/Time of Note Date/Time of Note DATE: 08/31/18 TIME: 12:41 Assessment/Plan Assessment/Plan Assessment/Plan Acute respiratory failure status post extubation Low normal left ventricular ejection fraction 50% Sepsis Acute kidney injury on hemodialysis Myocardial infarction, likely type II Liver dysfunction Illicit drug use -Hemoglobin on the lower side, if continues to decrease, low threshold to stop aspirin. No statin given abnormal LFTs. Continue beta-kishan as tolerated. Fluid management via hemodialysis as per nephrology Result Diagram: 08/31/18 0623 08/31/18 0623 Results 24hrs Laboratory Tests Test 08/30/18 17:21 08/30/18 20:29 08/31/18 06:23 08/31/18 08:57 Bedside Glucose 125 118 109 White Blood 16.7 H Count Red Blood Count 2.74 L Hemoglobin 8.9 L Hematocrit 25.5 L Mean Corpuscular 93.1 Volume Mean Corpuscular 32.5 Hemoglobin Mean Corpuscular 34.9 Hemoglobin Monica nt Red Cell 13.0 Distribution Width Platelet Count 342 Mean Platelet 11.4 H Volume Immature 2.300 H Granulocytes % Neutrophils % 80.2 H Lymphocytes % 5.4 L Monocytes % 5.7 Eosinophils % 5.9 Basophils % 0.5 Nucleated Red 0.0 Blood Cells % Immature 0.380 H Granulocytes # Neutrophils # 13.4 H Lymphocytes # 0.9 Monocytes # 1.0 H Eosinophils # 1.0 H Basophils # 0.1 Nucleated Red 0.0 Blood Cells # Sodium Level 132 L Potassium Level 4.3 Chloride Level 93 L Carbon Dioxide 21 Level Anion Gap 18 H Blood Urea 95 H Nitrogen Creatinine 10.24 H Est Glomerular 6 L Filtrat Rate mL/min Glucose Level 120 Calcium Level 7.7 L Phosphorus Level 11.8 #H Random Cortisol 16.0 Consultation Date/Type/Reason Admit Date/Time Aug 20, 2018 at 21:39 Initial Consult Date 08/21/18 Type of Consult cv Requesting Provider: QASIM BURROWS 24 HR Interval Summary Free Text/Dictation Patient seen and examined Exam/Review of Systems Vital Signs Vitals Vital Signs Date Temp Pulse Resp B/P (MAP) Pulse Ox O2 O2 Flow FiO2 Time Delivery Rate 08/31/18 84 20 120/65 100 Nasal 3.0 11:34 (83) Cannula 08/31/18 97.9 01:26 Intake and Output 08/30/18 08/30/18 08/31/18 1515:00 23:00 07:00 IntakeIntake Total 530 ml 360 ml 490 ml OutputOutput Total 50 ml 20 ml BalanceBalance 530 ml 310 ml 470 ml Exam Awake, undergoing hemodialysis, no apparent distress, following commands Head: normocephalic Respiratory: other (Coarse breath sounds bilaterally, no wheezing) Cardiovascular: regular rate and rhythm, other (S1-S2 heard) Gastrointestinal: soft, non-tender, bowel sounds Extremities: edema Medications Medications Current Medications Albuterol (Ventolin Hfa) 4 puff Q2H RESP THERAPY PRN INH SHORTNESS OF BREATH; Start 08/20/18 at 22:00 Ipratropium [place] (Atrovent Hfa) 4 puff Q2H RESP THERAPY PRN INH SHORTNESS OF BREATH; Start 08/20/18 at 22:00 Acetaminophen (Tylenol Liquid) 650 mg Q6H PRN PO PAIN LEVEL 1-3 OR FEVER Last administered on 08/30/18at 20:12; Admin Dose 650 MG; Start 08/20/18 at 22:00 Miscellaneous Information 1 ea NOTE XX ; Start 08/21/18 at 16:30 Glucose (Glutose) 15 gm Q15M PRN PO DECREASED GLUCOSE; Start 08/21/18 at 16:30 Glucose (Glutose) 22.5 gm Q15M PRN PO DECREASED GLUCOSE; Start 08/21/18 at 16:30 Dextrose (D50w Syringe) 25 ml Q15M PRN IV DECREASED GLUCOSE; Start 08/21/18 at 16:30 Dextrose (D50w Syringe) 50 ml Q15M PRN IV DECREASED GLUCOSE; Start 08/21/18 at 16:30 Glucagon (Glucagen) 1 mg Q15M PRN IM DECREASED GLUCOSE; Start 08/21/18 at 16:30 Glucose (Glutose) 15 gm Q15M PRN BUCCAL DECREASED GLUCOSE; Start 08/21/18 at 16:30 Metoprolol Tartrate (Lopressor) 25 mg BID PO Last administered on 08/30/18at 20:12; Admin Dose 25 MG; Start 08/23/18 at 21:00 Epinephrine (Racepinephrine 2.25% (Neb)) 0.25 ml Q3H RESP THERAPY PRN HHN STRIDOR; Start 08/23/18 at 17:00 Lansoprazole (Prevacid) 30 mg 0600,1800 GTB Last administered on 08/31/18at 05:37; Admin Dose 30 MG; Start 08/24/18 at 18:00 Ondansetron HCl (Zofran Inj) 4 mg Q6H PRN IV NAUSEA AND/OR VOMITING Last administered on 08/25/18at 21:47; Admin Dose 4 MG; Start 08/25/18 at 21:30 Diagnostic Test (Pha) (Accu-Chek) 1 02 XX ; Start 08/27/18 at 02:00 Insulin Aspart (Novolog Insulin Pen) NOVOLOG *MILD* ALGORITHM WITH MEALS BEDTIME SC Last administered on 08/28/18at 12:44; Admin Dose 1 UNIT; Start 08/26/18 at 21:00 Vancomycin HCl (Vanco Iv Per Pharmacy) VANCOMYCIN PER PHARMACY PER PROTOCOL XX ; Start 08/27/18 at 11:30 Heparin Sodium (Porcine) (Heparin (5000 Units/1ml)) 5,000 unit Q8 SC Last administered on 08/31/18at 05:41; Admin Dose 5,000 UNIT; Start 08/29/18 at 14:00 Epoetin Isacc (Epogen (Non Esrd/Non Oncology)) 10,000 units MoWeFr@17 SC Last administered on 08/29/18 17:12; Admin Dose 10,000 UNITS; Start 08/29/18 at 17:00 Albumin Human 50 ml @ 100 mls/hr DURING DIALYSIS PRN IV During HD. Last admi nistered on 08/29/18at 13:55; Admin Dose 100 MLS/HR; Start 08/29/18 at 12:30 Aspirin (Aspirin) 81 mg DAILY PO Last administered on 08/30/18at 08:34; Admin Dose 81 MG; Start 08/30/18 at 09:00 Calcium Acetate (Phoslo) 1,334 mg WITH MEALS GTB ; Start 08/31/18 at 12:00 Kana Phoenix DO Aug 31, 2018 12:42
--- NOTE | 2018-08-31 13:08 | PN ---
Date/Time of Note Date/Time of Note DATE: 08/31/18 TIME: 13:05 Assessment/Plan VTE Prophylaxis Risk score (from Nsg)>0 risk: 1 SCD applied (from Nsg): Yes Pharmacological prophylaxis: heparin Lines/Catheters IV Catheter Type (from Nrsg): [place] line still needed: Yes Urinary Cath still in place: Yes Reason Cath still needed: other (indicate) (monitor UOP) Assessment/Plan Assessment/Plan 33 yo man brought in found down with subsequent JULIAN secondary to rhabdomyolysis; positive for alcohol, methamphetamine, cannabis, opioids as well. # Renal failure- Oliguric renal failure with hyperkalemia (after potassium replacement), also presented with severe metabolic acidosis - Likely due to a combination of rhabdo and drug use. CK level still slightly elevated, but trending down now the last few days - Continue dialysis per renal recommendations #Encephalopathy - Despite extubation on 08/24, he remains very lethargic and profoundly weak. - Head CT 08/20 negative - TSH, ammonia, AM cortisol are normal. - Will consult neurology for further workup. #Bacteremia - Had fever on 08/27. - Blood culture (x1 unfortunately) from that day is growing coag negative staph, a common contaminant - Currently on vanco - D/Matias right IJ. But his femoral dialysis catheter may also be a source of infection. - Will defer to ID. # acute ventilatory dependent respiratory failure - extubated 08/24, was likely secondary to polysubstance overdose resulting in multiorgan dysfunction; patient had subsequent severe metabolic acidosis with inadequate respiratory compensation-now oxygen levels stable on nasal cannula supplementation -For now continue zosyn for possible community-acquired pneumonia-white blood cell count still elevated, follow-up CBC daily. -Follow-up pulmonary recommendations -PT eval # Acute encephalopathy: -Slowly improving, from polysubstance abuse-no present signs of withdrawal -Monitor # Elevated troponin-now appears stable- CV consulted earlier this admission. Likely demand ischemia from drug use. - Will not treat per NSTEMI protocol, monitor, follow-up cardiology recommendations # transaminitis: - May be from shock liver or drug use.- Hep B, Hep C negative. LFTs have been slowly trending down over the last 3-4 days -Continue to monitor LFTs # Rhabdomyolysis: -See above secondary to patient found down as well as polysubstance abuse - again now requiring dialysis. Again CK levels still overall slightly elevated, but trending down the last 4-5 days -Monitor CK levels # Coagulopathy- May be due to liver and renal injury as well as drug use- No DIC - Will watch closely, monitor CBC, follow-up hematology oncology recommendation # polysubstance abuse - Again patient was found to be positive for opioids, methamphetamine, marijuana and an elevated blood alcohol level. -Earlier this admission ordered for thiamine 300 mg IM daily times 3 days, further treatment as per the clinical course # DVT and GI prophylaxis: Protonix twice daily Result Diagram: 08/31/18 0623 08/31/1823 Results 24hrs Laboratory Tests Test 08/30/18 17:21 08/30/18 20:29 08/31/18 06:23 08/31/18 08:57 Bedside Glucose 125 118 109 White Blood 16.7 H Count Red Blood Count 2.74 L Hemoglobin 8.9 L Hematocrit 25.5 L Mean Corpuscular 93.1 Volume Mean Corpuscular 32.5 Hemoglobin Mean Corpuscular 34.9 Hemoglobin Monica nt Red Cell 13.0 Distribution Width Platelet Count 342 Mean Platelet 11.4 H Volume Immature 2.300 H Granulocytes % Neutrophils % 80.2 H Lymphocytes % 5.4 L Monocytes % 5.7 Eosinophils % 5.9 Basophils % 0.5 Nucleated Red 0.0 Blood Cells % Immature 0.380 H Granulocytes # Neutrophils # 13.4 H Lymphocytes # 0.9 Monocytes # 1.0 H Eosinophils # 1.0 H Basophils # 0.1 Nucleated Red 0.0 Blood Cells # Sodium Level 132 L Potassium Level 4.3 Chloride Level 93 L Carbon Dioxide 21 Level Anion Gap 18 H Blood Urea 95 H Nitrogen Creatinine 10.24 H Est Glomerular 6 L Filtrat Rate mL/min Glucose Level 120 Calcium Level 7.7 L Phosphorus Level 11.8 #H Random Cortisol 16.0 Subjective 24 Hr Interval Summary Free Text/Dictation No major overnight events. Patient getting dialysis today. Still extremely lethargic. Exam/Review of Systems Vital Signs Vitals Vital Signs Date Temp Pulse Resp B/P (MAP) Pulse Ox O2 O2 Flow FiO2 Time Delivery Rate 08/31/18 84 20 120/65 100 Nasal 3.0 11:34 (83) Cannula 08/31/18 97.9 01:26 Intake and Output 08/30/18 08/30/18 08/31/18 1515:00 23:00 07:00 IntakeIntake Total 530 ml 360 ml 490 ml OutputOutput Total 50 ml 20 ml BalanceBalance 530 ml 310 ml 470 ml Exam Gen: Lying in bed, no acute distress, nasal cannula in place. Eyes: Pupils equal round reactive to light, extraocular muscles intact HEENT: moist mucous membranes, Card: Regular rate and rhythm no murmurs Pulm: Clear breath sounds bilaterally, no crackles. Abd: Soft, nondistended. Ext: Bilateral upper arms with tense edema. Neuro: Very somnolent. Arousable with forceful verbal stimulation. Opens eyes. Answers some questions with single-syllable answers. Does not follow commands. Medications Medications Current Medications Albuterol (Ventolin Hfa) 4 puff Q2H RESP THERAPY PRN INH SHORTNESS OF BREATH; Start 08/20/18 at 22:00 Ipratropium [place] (Atrovent Hfa) 4 puff Q2H RESP THERAPY PRN INH SHORTNESS OF BREATH; Start 08/20/18 at 22:00 Acetaminophen (Tylenol Liquid) 650 mg Q6H PRN PO PAIN LEVEL 1-3 OR FEVER Last administered on 08/30/18at 20:12; Admin Dose 650 MG; Start 08/20/18 at 22:00 Miscellaneous Information 1 ea NOTE XX ; Start 08/21/18 at 16:30 Glucose (Glutose) 15 gm Q15M PRN PO DECREASED GLUCOSE; Start 08/21/18 at 16:30 Glucose (Glutose) 22.5 gm Q15M PRN PO DECREASED GLUCOSE; Start 08/21/18 at 16:30 Dextrose (D50w Syringe) 25 ml Q15M PRN IV DECREASED GLUCOSE; Start 08/21/18 at 16:30 Dextrose (D50w Syringe) 50 ml Q15M PRN IV DECREASED GLUCOSE; Start 08/21/18 at 16:30 Glucagon (Glucagen) 1 mg Q15M PRN IM DECREASED GLUCOSE; Start 08/21/18 at 16:30 Glucose (Glutose) 15 gm Q15M PRN BUCCAL DECREASED GLUCOSE; Start 08/21/18 at 16:30 Metoprolol Tartrate (Lopressor) 25 mg BID PO Last administered on 08/30/18at 20:12; Admin Dose 25 MG; Start 08/23/18 at 21:00 Epinephrine (Racepinephrine 2.25% (Neb)) 0.25 ml Q3H RESP THERAPY PRN HHN STRIDOR; Start 08/23/18 at 17:00 Lansoprazole (Prevacid) 30 mg 0600,1800 GTB Last administered on 08/31/18at 05:37; Admin Dose 30 MG; Start 08/24/18 at 18:00 Ondansetron HCl (Zofran Inj) 4 mg Q6H PRN IV NAUSEA AND/OR VOMITING Last administered on 08/25/18at 21:47; Admin Dose 4 MG; Start 08/25/18 at 21:30 Diagnostic Test (Pha) (Accu-Chek) 1 ea 02 XX ; Start 08/27/18 at 02:00 Insulin Aspart (Novolog Insulin Pen) NOVOLOG *MILD* ALGORITHM WITH MEALS BEDTIME SC Last administered on 08/28/18at 12:44; Admin Dose 1 UNIT; Start 08/26/18 at 21:00 Vancomycin HCl (Vanco Iv Per Pharmacy) VANCOMYCIN PER PHARMACY PER PROTOCOL XX ; Start 08/27/18 at 11:30 Heparin Sodium (Porcine) (Heparin (5000 Units/1ml)) 5,000 unit Q8 SC Last administered on 08/31/18at 05:41; Admin Dose 5,000 UNIT; Start 08/29/18 at 14:00 Epoetin Isacc (Epogen (Non Esrd/Non Oncology)) 10,000 units MoWeFr@17 SC Last administered on 08/29/18at 17:12; Admin Dose 10,000 UNITS; Start 08/29/18 at 17:00 Albumin Human 50 ml @ 100 mls/hr DURING DIALYSIS PRN IV During HD. Last administered on 08/29/18at 13:55; Admin Dose 100 MLS/HR; Start 08/29/18 at 12:30 Aspirin (Aspirin) 81 mg DAILY PO Last administered on 08/30/18at 08:34; Admin Dose 81 MG; Start 08/30/18 at 09:00 Calcium Acetate (Phoslo) 1,334 mg WITH MEALS GTB ; Start 08/31/18 at 12:00 YUMIKO JC MD Aug 31, 2018 13:08
[2018-08-31] MEDS: ASPIRIN 81 MG TAB PO SCH (13:15)
[2018-08-31] MEDS: CALCIUM ACETATE 667 MG CAP GTB SCH ×2 (13:15→17:49)
[2018-08-31] MEDS: METOPROLOL 25 MG TAB PO SCH ×2 (13:16→21:09)
--- NOTE | 2018-08-31 15:32 | CONS ---
Assessment/Plan Assessment/Plan Hospital Course A: 33 yo M with uncertain PMH who presents for evaluation of altered mental status UDS + for amphetamines, opioids, EtOH, cannabis Of note, he was reported to be severely hypoglycemic in the field. JULIAN+ Clinically consistent with an acute and multifactorial toxic-metabolic encephalopathy. Stroke is unlikely. Seizure is unlikely. CTH (08/20) was unrevealing. P: Repeat CTH for further characterization Cont medical management per primary Reorient as necessary Limit sedating medications as possible Will follow clinically Result Diagram: 08/31/18 0623 08/31/18 0623 Results 24hrs Laboratory Tests Test 08/30/18 17:21 08/30/18 20:29 08/31/18 06:23 08/31/18 08:57 Bedside Glucose 125 118 109 White Blood 16.7 H Count Red Blood Count 2.74 L Hemoglobin 8.9 L Hematocrit 25.5 L Mean Corpuscular 93.1 Volume Mean Corpuscular 32.5 Hemoglobin Mean Corpuscular 34.9 Hemoglobin Monica nt Red Cell 13.0 Distribution Width Platelet Count 342 Mean Platelet 11.4 H Volume Immature 2.300 H Granulocytes % Neutrophils % 80.2 H Lymphocytes % 5.4 L Monocytes % 5.7 Eosinophils % 5.9 Basophils % 0.5 Nucleated Red 0.0 Blood Cells % Immature 0.380 H Granulocytes # Neutrophils # 13.4 H Lymphocytes # 0.9 Monocytes # 1.0 H Eosinophils # 1.0 H Basophils # 0.1 Nucleated Red 0.0 Blood Cells # Sodium Level 132 L Potassium Level 4.3 Chloride Level 93 L Carbon Dioxide 21 Level Anion Gap 18 H Blood Urea 95 H Nitrogen Creatinine 10.24 H Est Glomerular 6 L Filtrat Rate mL/min Glucose Level 120 Calcium Level 7.7 L Phosphorus Level 11.8 #H Random Cortisol 16.0 Test 08/31/18 13:13 Bedside Glucose 137 Consultation Date/Type/Reason Admit Date/Time Aug 20, 2018 at 21:39 Type of Consult Neurology Reason for Consultation lethargy/weakness Requesting Provider: YUMIKO JC MD Date/Time of Note DATE: 08/31/18 TIME: 15:32 Hx of Present Illness This is a 33 yo M with hx of polysubstance abuse who presented to the ED with altered mental status. History was obtained from chart review as pt is a poor historian. It is elsewhere noted: Obtained from the ED physician documentation as well as the chart as the patient at the current time is intubated. This is a 33-year-old male who presents via EMS for altered mental status. EMS reports that the patient was found in a local parking lot unresponsive. He was hypoglycemic in the 30s and given dextrose. The patient was found to have pinpoint pupils and did not respond to 2 mg of Narcan. A nasal trumpet was inserted and the patient was brought to the emergency room. He continues to be unresponsive and remains critical. Patient was noted to be grunting and unresponsive in the emergency department and decision was made to emergently intubate the patient. Central line was also placed given his critical condition. Upon my examination at the bedside the patient is nonresponsive off sedation. He did have pinpoint pupils bilaterally. I did not observe any track anderson or any lesions around his body. I did not noticed any signs of head trauma. unable to obtain d/t pt's ams Exam/Review of Systems Vital Signs Vitals Vital Signs Date Temp Pulse Resp B/P (MAP) Pulse Ox O2 O2 Flow FiO2 Time Delivery Rate 08/31/18 84 20 120/65 100 Nasal 3.0 11:34 (83) Cannula 08/31/18 97.9 01:26 Intake and Output 08/30/18 08/30/18 08/31/18 1515:00 23:00 07:00 IntakeIntake Total 530 ml 360 ml 490 ml OutputOutput Total 50 ml 20 ml BalanceBalance 530 ml 310 ml 470 ml Exam PE: Gen Appearance: No Apparent Distress HEENT: Normocephalic Cardiovascular: Regular rate Lungs: Clear bilaterally Abdomen: Soft Extremities: Dry NE: The patient was obtunded and difficult to arouse; sparsely verbal. Somewhat disoriented. Language was normal but forced. Fund of knowledge was adequate. Cranial nerve exam was limited by mental status. Pupils were equal and reactive to light. Funduscopic examination was limited. Face was symmetric with normal strength. Hearing was intact. Tone was normal. Muscle bulk was normal. I did not see fasciculations. Arms were moderately weak in the UE (R>L) and severely weak in the LE. Vibration sensation was normal. Temperature and pinprick sensation was normal. Coordination was limited d/t mental status. Gait was deferred due to bedrest. Arm and leg reflexes were symmetric. Phillips's sign was absent. Plantar responses were flexor. Medications Medications Current Medications Albuterol (Ventolin Hfa) 4 puff Q2H RESP THERAPY PRN INH SHORTNESS OF BREATH; Start 08/20/18 at 22:00 Ipratropium [place] (Atrovent Hfa) 4 puff Q2H RESP THERAPY PRN INH SHORTNESS OF BREATH; Start 08/20/18 at 22:00 Acetaminophen (Tylenol Liquid) 650 mg Q6H PRN PO PAIN LEVEL 1-3 OR FEVER Last administered on 08/30/18at 20:12; Admin Dose 650 MG; Start 08/20/18 at 22:00 Miscellaneous Information 1 ea NOTE XX ; Start 08/21/18 at 16:30 Glucose (Glutose) 15 gm Q15M PRN PO DECREASED GLUCOSE; Start 08/21/18 at 16:30 Glucose (Glutose) 22.5 gm Q15M PRN PO DECREASED GLUCOSE; Start 08/21/18 at 16:30 Dextrose (D50w Syringe) 25 ml Q15M PRN IV DECREASED GLUCOSE; Start 08/21/18 at 16:30 Dextrose (D50w Syringe) 50 ml Q15M PRN IV DECREASED GLUCOSE; Start 08/21/18 at 16:30 Glucagon (Glucagen) 1 mg Q15M PRN IM DECREASED GLUCOSE; Start 08/21/18 at 16:30 Glucose (Glutose) 15 gm Q15M PRN BUCCAL DECREASED GLUCOSE; Start 08/21/18 at 16:30 Metoprolol Tartrate (Lopressor) 25 mg BID PO Last administered on 08/31/18at 13:16; Admin Dose 25 MG; Start 08/23/18 at 21:00 Epinephrine (Racepinephrine 2.25% (Neb)) 0.25 ml Q3H RESP THERAPY PRN HHN STRIDOR; Start 08/23/18 at 17:00 Lansoprazole (Prevacid) 30 mg 0600,1800 GTB Last administered on 08/31/18at 05:37; Admin Dose 30 MG; Start 08/24/18 at 18:00 Ondansetron HCl (Zofran Inj) 4 mg Q6H PRN IV NAUSEA AND/OR VOMITING Last administered on 08/25/18at 21:47; Admin Dose 4 MG; Start 08/25/18 at 21:30 Diagnostic Test (Pha) (Accu-Chek) 1 ea 02 XX ; Start 08/27/18 at 02:00 Insulin Aspart (Novolog Insulin Pen) NOVOLOG *MILD* ALGORITHM WITH MEALS BEDTIME SC Last administered on 08/28/18at 12:44; Admin Dose 1 UNIT; Start 08/26/18 at 21:00 Vancomycin HCl (Vanco Iv Per Pharmacy) VANCOMYCIN PER PHARMACY PER PROTOCOL XX ; Start 08/27/18 at 11:30 Heparin Sodium (Porcine) (Heparin (5000 Units/1ml)) 5,000 unit Q8 SC Last administered on 08/31/18at 14:55; Admin Dose 5,000 UNIT; Start 08/29/18 at 14:00 Epoetin Isacc (Epogen (Non Esrd/Non Oncology)) 10,000 units MoWeFr@17 SC Last administered on 08/29/18at 17:12; Admin Dose 10,000 UNITS; Start 08/29/18 at 17:00 Albumin Human 50 ml @ 100 mls/hr DURING DIALYSIS PRN IV During HD. Last administered on 08/29/18at 13:55; Admin Dose 100 MLS/HR; Start 08/29/18 at 12:30 Aspirin (Aspirin) 81 mg DAILY PO Last administered on 08/31/18at 13:15; Admin Dose 81 MG; Start 08/30/18 at 09:00 Calcium Acetate (Phoslo) 1,334 mg WITH MEALS GTB Last administered on 08/31/18at 13:15; Admin Dose 1,334 MG; Start 08/31/18 at 12:00 Past Medical History reviewed Medications Current Medications Albuterol (Ventolin Hfa) 4 puff Q2H RESP THERAPY PRN INH SHORTNESS OF BREATH; Start 08/20/18 at 22:00 Ipratropium [place] (Atrovent Hfa) 4 puff Q2H RESP THERAPY PRN INH SHORTNESS OF BREATH; Start 08/20/18 at 22:00 Acetaminophen (Tylenol Liquid) 650 mg Q6H PRN PO PAIN LEVEL 1-3 OR FEVER Last administered on 08/30/18at 20:12; Admin Dose 650 MG; Start 08/20/18 at 22:00 Miscellaneous Information 1 ea NOTE XX ; Start 08/21/18 at 16:30 Glucose (Glutose) 15 gm Q15M PRN PO DECREASED GLUCOSE; Start 08/21/18 at 16:30 Glucose (Glutose) 22.5 gm Q15M PRN PO DECREASED GLUCOSE; Start 08/21/18 at 16:30 Dextrose (D50w Syringe) 25 ml Q15M PRN IV DECREASED GLUCOSE; Start 08/21/18 at 16:30 Dextrose (D50w Syringe) 50 ml Q15M PRN IV DECREASED GLUCOSE; Start 08/21/18 at 16:30 Glucagon (Glucagen) 1 mg Q15M PRN IM DECREASED GLUCOSE; Start 08/21/18 at 16:30 Glucose (Glutose) 15 gm Q15M PRN BUCCAL DECREASED GLUCOSE; Start 08/21/18 at 16:30 Metoprolol Tartrate (Lopressor) 25 mg BID PO Last administered on 08/31/18at 13:16; Admin Dose 25 MG; Start 08/23/18 at 21:00 Epinephrine (Racepinephrine 2.25% (Neb)) 0.25 ml Q3H RESP THERAPY PRN HHN STRI MEL; Start 08/23/18 at 17:00 Lansoprazole (Prevacid) 30 mg 0600,1800 GTB Last administered on 08/31/18at 05:37; Admin Dose 30 MG; Start 08/24/18 at 18:00 Ondansetron HCl (Zofran Inj) 4 mg Q6H PRN IV NAUSEA AND/OR VOMITING Last administered on 08/25/18at 21:47; Admin Dose 4 MG; Start 08/25/18 at 21:30 Diagnostic Test (Pha) (Accu-Chek) 1 ea 02 XX ; Start 08/27/18 at 02:00 Insulin Aspart (Novolog Insulin Pen) NOVOLOG *MILD* ALGORITHM WITH MEALS BEDTIME SC Last administered on 08/28/18at 12:44; Admin Dose 1 UNIT; Start 08/26/18 at 21:00 Vancomycin HCl (Vanco Iv Per Pharmacy) VANCOMYCIN PER PHARMACY PER PROTOCOL XX ; Start 08/27/18 at 11:30 Heparin Sodium (Porcine) (Heparin (5000 Units/1ml)) 5,000 unit Q8 SC Last administered on 08/31/18at 14:55; Admin Dose 5,000 UNIT; Start 08/29/18 at 14:00 Epoetin Isacc (Epogen (Non Esrd/Non Oncology)) 10,000 units MoWeFr@17 SC Last administered on 08/29/18at 17:12; Admin Dose 10,000 UNITS; Start 08/29/18 at 17:00 Albumin Human 50 ml @ 100 mls/hr DURING DIALYSIS PRN IV During HD. Last administered on 08/29/18at 13:55; Admin Dose 100 MLS/HR; Start 08/29/18 at 12:30 Aspirin (Aspirin) 81 mg DAILY PO Last administered on 08/31/18at 13:15; Admin Dose 81 MG; Start 08/30/18 at 09:00 Calcium Acetate (Phoslo) 1,334 mg WITH MEALS GTB Last administered on 08/31/18at 13:15; Admin Dose 1,334 MG; Start 08/31/18 at 12:00 Allergies: Coded Allergies: No Known Allergies (Verified Allergy, Unknown, 08/24/18) Verified per pt. Oriented at this time. Past Surgical History reviewed Family History Significant Family History: no pertinent family hx Social History reviewed Alcohol Use: other (Previous admission for alcohol use.) TIN GUIDO NP Aug 31, 2018 15:32 GEOVANNI BANKS Sep 01, 2018 05:53
--- NOTE | 2018-08-31 15:32 | CONS ---
Assessment/Plan Assessment/Plan Result Diagram: 08/31/18 0623 08/31/18 0623 Results 24hrs Laboratory Tests Test 08/30/18 17:21 08/30/18 20:29 08/31/18 06:23 08/31/18 08:57 Bedside Glucose 125 118 109 White Blood 16.7 H Count Red Blood Count 2.74 L Hemoglobin 8.9 L Hematocrit 25.5 L Mean Corpuscular 93.1 Volume Mean Corpuscular 32.5 Hemoglobin Mean Corpuscular 34.9 Hemoglobin Monica nt Red Cell 13.0 Distribution Width Platelet Count 342 Mean Platelet 11.4 H Volume Immature 2.300 H Granulocytes % Neutrophils % 80.2 H Lymphocytes % 5.4 L Monocytes % 5.7 Eosinophils % 5.9 Basophils % 0.5 Nucleated Red 0.0 Blood Cells % Immature 0.380 H Granulocytes # Neutrophils # 13.4 H Lymphocytes # 0.9 Monocytes # 1.0 H Eosinophils # 1.0 H Basophils # 0.1 Nucleated Red 0.0 Blood Cells # Sodium Level 132 L Potassium Level 4.3 Chloride Level 93 L Carbon Dioxide 21 Level Anion Gap 18 H Blood Urea 95 H Nitrogen Creatinine 10.24 H Est Glomerular 6 L Filtrat Rate mL/min Glucose Level 120 Calcium Level 7.7 L Phosphorus Level 11.8 #H Random Cortisol 16.0 Test 08/31/18 13:13 Bedside Glucose 137 Consultation Date/Type/Reason Admit Date/Time Aug 20, 2018 at 21:39 Type of Consult Neurology Requesting Provider: QASIM BURROWS Date/Time of Note DATE: 08/31/18 TIME: 15:32 Exam Vital Signs Vitals Vital Signs Date Temp Pulse Resp B/P (MAP) Pulse Ox O2 O2 Flow FiO2 Time Delivery Rate 08/31/18 84 20 120/65 100 Nasal 3.0 11:34 (83) Cannula 08/31/18 97.9 01:26 Intake and Output 08/30/18 08/30/18 08/31/18 1515:00 23:00 07:00 IntakeIntake Total 530 ml 360 ml 490 ml OutputOutput Total 50 ml 20 ml BalanceBalance 530 ml 310 ml 470 ml TIN GUIDO NP Aug 31, 2018 15:32
[2018-08-31] MEDS: EPOETIN 10000 UNITS/ML (NON ESRD/NON ONCOLOGY) SC SCH (17:50)
[2018-09-01] VITALS (19 sets, daily range): BP systolic 107–146; BP diastolic 58–81; PULSE 78–95; RESP 16–18
[2018-09-01] MEDS: ACCU-CHEK XX SCH (01:49)
[2018-09-01] MEDS: LANSOPRAZOLE 30 MG CAP GTB SCH (06:00)
[2018-09-01] MEDS: HEPARIN 5,000 UNIT/1 ML VIAL SC SCH ×3 (06:08→22:00)
[2018-09-01] MEDS: INSULIN ASPART [NOVOLOG] 3 ML PEN SC SCH ×4 (08:00→21:00)
[2018-09-01] MEDS: METOPROLOL 25 MG TAB PO SCH ×2 (08:40→21:00)
[2018-09-01] MEDS: ASPIRIN 81 MG TAB PO SCH (08:40)
[2018-09-01] MEDS: CALCIUM ACETATE 667 MG CAP GTB SCH ×3 (08:40→18:15)
--- NOTE | 2018-09-01 09:42 | CONS ---
Date/Time of Note Date/Time of Note DATE: 09/01/18 TIME: 09:39 Assessment/Plan Assessment/Plan Assessment/Plan 1. ARF without recovery, will hd today 2. Abnl neuro exam, neuro note rev, ct rev, mri to be ordered, rev with IM, still not clear to me the cause of his neuro defecit entrapment phenomenon seems unlikely bilateral-pending brain mri consider imaging cx spine 3. Elev P, will repeat tomm, on binder 4. Cognition is better Result Diagram: 09/01/18 0438 09/01/18 0438 Results 24hrs Laboratory Tests Test 08/31/18 13:13 08/31/18 17:43 08/31/18 21:12 09/01/18 04:38 Bedside Glucose 137 108 131 White Blood 15.6 H Count Red Blood Count 2.65 L Hemoglobin 8.6 L Hematocrit 24.9 L Mean Corpuscular 94.0 Volume Mean Corpuscular 32.5 Hemoglobin Mean Corpuscular 34.5 Hemoglobin Monica nt Red Cell 13.2 Distribution Width Platelet Count 421 #H Mean Platelet 11.2 H Volume Immature 2.100 H Granulocytes % Neutrophils % 78.2 H Lymphocytes % 6.2 L Monocytes % 8.5 Eosinophils % 4.6 Basophils % 0.4 Nucleated Red 0.0 Blood Cells % Immature 0.320 H Granulocytes # Neutrophils # 12.2 H Lymphocytes # 1.0 Monocytes # 1.3 H Eosinophils # 0.7 H Basophils # 0.1 Nucleated Red 0.0 Blood Cells # Sodium Level 131 L Potassium Level 4.5 Chloride Level 96 L Carbon Dioxide 23 Level Anion Gap 12 Blood Urea 76 H Nitrogen Creatinine 8.17 #H Est Glomerular 8 L Filtrat Rate mL/min Glucose Level 111 Calcium Level 7.7 L Test 09/01/18 08:38 Bedside Glucose 114 Consultation Date/Type/Reason Admit Date/Time Aug 20, 2018 at 21:39 Initial Consult Date 08/21/18 Requesting Provider: YUMIKO JC MD 24 HR Interval Summary Constitutional: other (more alert) Detailed Summary Respiratory: No cough, No shortness of breath Gastrointestinal: No no complaints Exam/Review of Systems Vital Signs Vitals Vital Signs Date Temp Pulse Resp B/P (MAP) Pulse Ox O2 O2 Flow FiO2 Time Delivery Rate 09/01/18 98.3 89 18 109/63 100 07:35 (78) 09/01/18 2.0 06:54 09/01/18 Nasal 01:56 Cannula Intake and Output 08/31/18 08/31/18 09/01/18 1515:00 23:00 07:00 OutputOutput Total 3400 ml BalanceBalance -3400 ml Exam Neck: No jvd Respiratory: clear to auscultation Cardiovascular: regular rate and rhythm Gastrointestinal: soft Extremities: edema (less sacreal edema and no change in upper extrem edema) Neurological: other (can barely move upper extrem bilat, weak hand webbing weaver on left, min on right, can move toes right foot and not left) Medications Medications Current Medications Albuterol (Ventolin Hfa) 4 puff Q2H RESP THERAPY PRN INH SHORTNESS OF BREATH; Start 08/20/18 at 22:00 Ipratropium [place] (Atrovent Hfa) 4 puff Q2H RESP THERAPY PRN INH SHORTNESS OF BREATH; Start 08/20/18 at 22:00 Acetaminophen (Tylenol Liquid) 650 mg Q6H PRN PO PAIN LEVEL 1-3 OR FEVER Last administered on 08/30/18at 20:12; Admin Dose 650 MG; Start 08/20/18 at 22:00 Miscellaneous Information 1 ea NOTE XX ; Start 08/21/18 at 16:30 Glucose (Glutose) 15 gm Q15M PRN PO DECREASED GLUCOSE; Start 08/21/18 at 16:30 Glucose (Glutose) 22.5 gm Q15M PRN PO DECREASED GLUCOSE; Start 08/21/18 at 16:30 Dextrose (D50w Syringe) 25 ml Q15M PRN IV DECREASED GLUCOSE; Start 08/21/18 at 16:30 Dextrose (D50w Syringe) 50 ml Q15M PRN IV DECREASED GLUCOSE; Start 08/21/18 at 16:30 Glucagon (Glucagen) 1 mg Q15M PRN IM DECREASED GLUCOSE; Start 08/21/18 at 16:30 Glucose (Glutose) 15 gm Q15M PRN BUCCAL DECREASED GLUCOSE; Start 08/21/18 at 16:30 Metoprolol Tartrate (Lopressor) 25 mg BID PO Last administered on 08/31/18at 21:09; Admin Dose 25 MG; Start 08/23/18 at 21:00 Epinephrine (Racepinephrine 2.25% (Neb)) 0.25 ml Q3H RESP THERAPY PRN HHN STRIDOR; Start 08/23/18 at 17:00 Lansoprazole (Prevacid) 30 mg 0600,1800 GTB Last administered on 08/31/18 17:49; Admin Dose 30 MG; Start 08/24/18 at 18:00 Ondansetron HCl (Zofran Inj) 4 mg Q6H PRN IV NAUSEA AND/OR VOMITING Last administered on 08/25/18 21:47; Admin Dose 4 MG; Start 08/25/18 at 21:30 Diagnostic Test (Pha) (Accu-Chek) XX ; Start 08/27/18 at 02:00 Insulin Aspart (Novolog Insulin Pen) NOVOLOG *MILD* ALGORITHM WITH MEALS BEDTIME SC Last administered on 08/28/18 12:44; Admin Dose 1 UNIT; Start 08/26/18 at 21:00 Vancomycin HCl (Vanco Iv Per Pharmacy) VANCOMYCIN PER PHARMACY PER PROTOCOL XX ; Start 08/27/18 at 11:30 Heparin Sodium (Porcine) (Heparin (5000 Units/1ml)) 5,000 unit Q8 SC Last administered on 09/01/18 06:08; Admin Dose 5,000 UNIT; Start 08/29/18 at 14:00 Epoetin Isacc (Epogen (Non Esrd/Non Oncology)) 10,000 units MoWeFr@17 SC Last administered on 08/31/18 17:50; Admin Dose 10,000 UNITS; Start 08/29/18 at 17:00 Albumin Human 50 ml @ 100 mls/hr DURING DIALYSIS PRN IV During HD. Last administered on 08/29/18 13:55; Admin Dose 100 MLS/HR; Start 08/29/18 at 12:30 Aspirin (Aspirin) 81 mg DAILY PO Last administered on 09/01/18 08:40; Admin Dose 81 MG; Start 08/30/18 at 09:00 Calcium Acetate (Phoslo) 1,334 mg WITH MEALS GTB Last administered on 09/01/18 08:40; Admin Dose 1,334 MG; Start 08/31/18 at 12:00 MAXIMO TAY MD Sep 01, 2018 09:42
[2018-09-01] MEDS: ALBUMIN HUMAN 25% 100 ML IV SCH ×2 (11:04→11:59)
--- NOTE | 2018-09-01 12:20 | PN ---
Date/Time of Note Date/Time of Note DATE: 09/01/18 TIME: 12:16 Assessment/Plan VTE Prophylaxis Risk score (from Ns)>0 risk: 1 SCD applied (from Nsg): Yes Pharmacological prophylaxis: heparin Lines/Catheters IV Catheter Type (from Nrsg): Saline Lock Urinary Cath still in place: Yes Reason Cath still needed: other (indicate) (anuric JULIAN) Assessment/Plan Assessment/Plan 33 yo man brought in found down with subsequent JULIAN secondary to rhabdomyolysis; positive for alcohol, methamphetamine, cannabis, opioids as well. # Renal failure- Oliguric renal failure with hyperkalemia (after potassium replacement), also presented with severe metabolic acidosis - Likely due to a combination of rhabdo and drug use. CK level still slightly elevated, but trending down now the last few days - Continue dialysis per renal recommendations #Encephalopathy - Despite extubation on 08/24, he remains very lethargic and profoundly weak. - Head CT 08/20 negative - Repeat CT on 08/31 shows some edema of the basal ganglia. Will get MRI to further assess. This likely represents residual toxic metabolic effect. - TSH, ammonia, AM cortisol are normal. #Bacteremia - Had fever on 08/27. - Blood culture (x1 unfortunately) from that day is growing coag negative staph, a common contaminant - Currently on vanco - D/Matias right IJ. But his femoral dialysis catheter may also be a source of infection. - Will defer to ID. # acute ventilatory dependent respiratory failure - extubated 08/24, was likely secondary to polysubstance overdose resulting in multiorgan dysfunction; patient had subsequent severe metabolic acidosis with inadequate respiratory compensation-now oxygen levels stable on nasal cannula supplementation -For now continue zosyn for possible community-acquired pneumonia-white blood cell count still elevated, follow-up CBC daily. -Follow-up pulmonary recommendations -PT eval # Acute encephalopathy: -Slowly improving, from polysubstance abuse-no present signs of withdrawal -Monitor # Elevated troponin-now appears stable- CV consulted earlier this admission. Likely demand ischemia from drug use. - Will not treat per NSTEMI protocol, monitor, follow-up cardiology recommendations # transaminitis: - May be from shock liver or drug use.- Hep B, Hep C negative. LFTs have been slowly trending down over the last 3-4 days -Continue to monitor LFTs # Rhabdomyolysis: -See above secondary to patient found down as well as polysubstance abuse - again now requiring dialysis. Again CK levels still overall slightly elevated, but trending down the last 4-5 days -Monitor CK levels # Coagulopathy- May be due to liver and renal injury as well as drug use- No DIC - Will watch closely, monitor CBC, follow-up hematology oncology recommenda tion # polysubstance abuse - Again patient was found to be positive for opioids, methamphetamine, marijuana and an elevated blood alcohol level. -Earlier this admission ordered for thiamine 300 mg IM daily times 3 days, further treatment as per the clinical course # DVT and GI prophylaxis: Protonix twice daily Result Diagram: 09/01/18 0438 09/01/18 0438 Results 24hrs Laboratory Tests Test 08/31/18 13:13 08/31/18 17:43 08/31/18 21:12 09/01/18 04:38 Bedside Glucose 137 108 131 White Blood 15.6 H Count Red Blood Count 2.65 L Hemoglobin 8.6 L Hematocrit 24.9 L Mean Corpuscular 94.0 Volume Mean Corpuscular 32.5 Hemoglobin Mean Corpuscular 34.5 Hemoglobin Monica nt Red Cell 13.2 Distribution Width Platelet Count 421 #H Mean Platelet 11.2 H Volume Immature 2.100 H Granulocytes % Neutrophils % 78.2 H Lymphocytes % 6.2 L Monocytes % 8.5 Eosinophils % 4.6 Basophils % 0.4 Nucleated Red 0.0 Blood Cells % Immature 0.320 H Granulocytes # Neutrophils # 12.2 H Lymphocytes # 1.0 Monocytes # 1.3 H Eosinophils # 0.7 H Basophils # 0.1 Nucleated Red 0.0 Blood Cells # Sodium Level 131 L Potassium Level 4.5 Chloride Level 96 L Carbon Dioxide 23 Level Anion Gap 12 Blood Urea 76 H Nitrogen Creatinine 8.17 #H Est Glomerular 8 L Filtrat Rate mL/min Glucose Level 111 Calcium Level 7.7 L Test 09/01/18 08:38 Bedside Glucose 114 Subjective 24 Hr Interval Summary Free Text/Dictation Getting dialysis today. Mental status improved. He opens eyes spontaneously and tracks. Friend was at bedside today. Exam/Review of Systems Vital Signs Vitals Vital Signs Date Temp Pulse Resp B/P (MAP) Pulse Ox O2 O2 Flow FiO2 Time Delivery Rate 09/01/18 98.3 89 18 109/63 100 07:35 (78) 09/01/18 2.0 06:54 09/01/18 Nasal 01:56 Cannula Intake and Output 08/31/18 08/31/18 09/01/18 1515:00 23:00 07:00 OutputOutput Total 3400 ml BalanceBalance -3400 ml Exam Gen: Lying in bed, no acute distress, nasal cannula in place. Eyes: Pupils equal round reactive to light, extraocular muscles intact HEENT: moist mucous membranes, Card: Regular rate and rhythm no murmurs Pulm: Clear breath sounds bilaterally, no crackles. Abd: Soft, nondistended. Ext: Bilateral upper arms with 2+ nonpitting edema. Neuro: Awake and responsive. Oriented to year and location ("[facility]") and name. Not oriented to month, day. Able to squeeze hands with 3/5 strength and wiggle toes. Overall profound weakness. Medications Medications Current Medications Albuterol (Ventolin Hfa) 4 puff Q2H RESP THERAPY PRN INH SHORTNESS OF BREATH; Start 08/20/18 at 22:00 Ipratropium [place] (Atrovent Hfa) 4 puff Q2H RESP THERAPY PRN INH SHORTNESS OF BREATH; Start 08/20/18 at 22:00 Acetaminophen (Tylenol Liquid) 650 mg Q6H PRN PO PAIN LEVEL 1-3 OR FEVER Last administered on 08/30/18at 20:12; Admin Dose 650 MG; Start 08/20/18 at 22:00 Miscellaneous Information 1 ea NOTE XX ; Start 08/21/18 at 16:30 Glucose (Glutose) 15 gm Q15M PRN PO DECREASED GLUCOSE; Start 08/21/18 at 16:30 Glucose (Glutose) 22.5 gm Q15M PRN PO DECREASED GLUCOSE; Start 08/21/18 at 16:30 Dextrose (D50w Syringe) 25 ml Q15M PRN IV DECREASED GLUCOSE; Start 08/21/18 at 16:30 Dextrose (D50w Syringe) 50 ml Q15M PRN IV DECREASED GLUCOSE; Start 08/21/18 at 16:30 Glucagon (Glucagen) 1 mg Q15M PRN IM DECREASED GLUCOSE; Start 08/21/18 at 16:30 Glucose (Glutose) 15 gm Q15M PRN BUCCAL DECREASED GLUCOSE; Start 08/21/18 at 16:30 Metoprolol Tartrate (Lopressor) 25 mg BID PO Last administered on 08/31/18 21:09; Admin Dose 25 MG; Start 08/23/18 at 21:00 Epinephrine (Racepinephrine 2.25% (Neb)) 0.25 ml Q3H RESP THERAPY PRN HHN STRIDOR; Start 08/23/18 at 17:00 Lansoprazole (Prevacid) 30 mg 0600,1800 GTB Last administered on 08/31/18 17:49; Admin Dose 30 MG; Start 08/24/18 at 18:00 Ondansetron HCl (Zofran Inj) 4 mg Q6H PRN IV NAUSEA AND/OR VOMITING Last administered on 08/25/18 21:47; Admin Dose 4 MG; Start 08/25/18 at 21:30 Diagnostic Test (Pha) (Accu-Chek) XX ; Start 08/27/18 at 02:00 Insulin Aspart (Novolog Insulin Pen) NOVOLOG *MILD* ALGORITHM WITH MEALS BEDTIME SC Last administered on 08/28/18 12:44; Admin Dose 1 UNIT; Start 08/26/18 at 21:00 Vancomycin HCl (Vanco Iv Per Pharmacy) VANCOMYCIN PER PHARMACY PER PROTOCOL XX ; Start 08/27/18 at 11:30 Heparin Sodium (Porcine) (Heparin (5000 Units/1ml)) 5,000 unit Q8 SC Last administered on 09/01/18 06:08; Admin Dose 5,000 UNIT; Start 08/29/18 at 14:00 Epoetin Isacc (Epogen (Non Esrd/Non Oncology)) 10,000 units MoWeFr@17 SC Last administered on 08/31/18at 17:50; Admin Dose 10,000 UNITS; Start 08/29/18 at 17:00 Albumin Human 50 ml @ 100 mls/hr DURING DIALYSIS PRN IV During HD. Last administered on 08/29/18 13:55; Admin Dose 100 MLS/HR; Start 08/29/18 at 12:30 Aspirin (Aspirin) 81 mg DAILY PO Last administered on 09/01/18 08:40; Admin Dose 81 MG; Start 08/30/18 at 09:00 Calcium Acetate (Phoslo) 1,334 mg WITH MEALS GTB Last administered on 09/01/18 08:40; Admin Dose 1,334 MG; Start 08/31/18 at 12:00 Albumin Human 100 ml @ 100 mls/hr WITH DIALYSIS IV Last administered on 09/01/18at 11:59; Admin Dose 100 MLS/HR; Start 09/01/18 at 10:30 Heparin Sodium (Porcine) (Heparin (1000 Units/ml)) 3,000 unit AFTER DIALYSIS CATHETER ; Start 09/01/18 at 12:30 YUMIKO JC MD Sep 01, 2018 12:20
[2018-09-01] MEDS: HEPARIN 1000 UNITS/ML 10 ML INJ CATHETER SCH (13:01)
[2018-09-01] MEDS: ACETAMINOPHEN 650MG/20.3ML CUP PO PRN ×2 (13:03→21:34)
--- NOTE | 2018-09-01 14:32 | CONS ---
Date/Time of Note Date/Time of Note DATE: 09/01/18 TIME: 14:31 Assessment/Plan Assessment/Plan Assessment/Plan Acute respiratory failure status post extubation Low normal left ventricular ejection fraction 50% Sepsis Acute kidney injury on hemodialysis Myocardial infarction, likely type II Liver dysfunction Illicit drug use -Hemoglobin on the lower side, if continues to decrease, low threshold to stop aspirin. No statin given abnormal LFTs. Continue beta-kishan as tolerated. Fluid management via hemodialysis as per nephrology Result Diagram: 09/01/18 0438 09/01/18 0438 Results 24hrs Laboratory Tests Test 08/31/18 17:43 08/31/18 21:12 09/01/18 04:38 09/01/18 08:38 Bedside Glucose 108 131 114 White Blood 15.6 H Count Red Blood Count 2.65 L Hemoglobin 8.6 L Hematocrit 24.9 L Mean Corpuscular 94.0 Volume Mean Corpuscular 32.5 Hemoglobin Mean Corpuscular 34.5 Hemoglobin Monica nt Red Cell 13.2 Distribution Width Platelet Count 421 #H Mean Platelet 11.2 H Volume Immature 2.100 H Granulocytes % Neutrophils % 78.2 H Lymphocytes % 6.2 L Monocytes % 8.5 Eosinophils % 4.6 Basophils % 0.4 Nucleated Red 0.0 Blood Cells % Immature 0.320 H Granulocytes # Neutrophils # 12.2 H Lymphocytes # 1.0 Monocytes # 1.3 H Eosinophils # 0.7 H Basophils # 0.1 Nucleated Red 0.0 Blood Cells # Sodium Level 131 L Potassium Level 4.5 Chloride Level 96 L Carbon Dioxide 23 Level Anion Gap 12 Blood Urea 76 H Nitrogen Creatinine 8.17 #H Est Glomerular 8 L Filtrat Rate mL/min Glucose Level 111 Calcium Level 7.7 L Test 09/01/18 12:24 Bedside Glucose 135 Consultation Date/Type/Reason Admit Date/Time Aug 20, 2018 at 21:39 Initial Consult Date 08/21/18 Type of Consult cv Requesting Provider: YUMIKO JC MD 24 HR Interval Summary Free Text/Dictation Denies shortness of breath, chest pain Exam/Review of Systems Vital Signs Vitals Vital Signs Date Temp Pulse Resp B/P (MAP) Pulse Ox O2 O2 Flow FiO2 Time Delivery Rate 09/01/18 93 18 135/73 100 Nasal 3.0 13:44 (93) Cannula 09/01/18 98.3 07:35 Intake and Output 08/31/18 08/31/18 09/01/18 1515:00 23:00 07:00 OutputOutput Total 3400 ml BalanceBalance -3400 ml Exam Following commands, no apparent distress Constitutional: alert Head: normocephalic Respiratory: other (Coarse breath sounds bilaterally, no wheezing) Cardiovascular: regular rate and rhythm, other (S1-S2 heard) Gastrointestinal: soft, non-tender, bowel sounds Extremities: edema Medications Medications Current Medications Albuterol (Ventolin Hfa) 4 puff Q2H RESP THERAPY PRN INH SHORTNESS OF BREATH; Start 08/20/18 at 22:00 Ipratropium [place] (Atrovent Hfa) 4 puff Q2H RESP THERAPY PRN INH SHORTNESS OF BREATH; Start 08/20/18 at 22:00 Acetaminophen (Tylenol Liquid) 650 mg Q6H PRN PO PAIN LEVEL 1-3 OR FEVER Last administered on 09/01/18at 13:03; Admin Dose 650 MG; Start 08/20/18 at 22:00 Miscellaneous Information 1 ea NOTE XX ; Start 08/21/18 at 16:30 Glucose (Glutose) 15 gm Q15M PRN PO DECREASED GLUCOSE; Start 08/21/18 at 16:30 Glucose (Glutose) 22.5 gm Q15M PRN PO DECREASED GLUCOSE; Start 08/21/18 at 16:30 Dextrose (D50w Syringe) 25 ml Q15M PRN IV DECREASED GLUCOSE; Start 08/21/18 at 16:30 Dextrose (D50w Syringe) 50 ml Q15M PRN IV DECREASED GLUCOSE; Start 08/21/18 at 16:30 Glucagon (Glucagen) 1 mg Q15M PRN IM DECREASED GLUCOSE; Start 08/21/18 at 16:30 Glucose (Glutose) 15 gm Q15M PRN BUCCAL DECREASED GLUCOSE; Start 08/21/18 at 16:30 Metoprolol Tartrate (Lopressor) 25 mg BID PO Last administered on 08/31/18at 21:09; Admin Dose 25 MG; Start 08/23/18 at 21:00 Epinephrine (Racepinephrine 2.25% (Neb)) 0.25 ml Q3H RESP THERAPY PRN HHN STRIDOR; Start 08/23/18 at 17:00 Lansoprazole (Prevacid) 30 mg 0600,1800 GTB Last administered on 08/31/18 17:49; Admin Dose 30 MG; Start 08/24/18 at 18:00 Ondansetron HCl (Zofran Inj) 4 mg Q6H PRN IV NAUSEA AND/OR VOMITING Last administered on 08/25/18 21:47; Admin Dose 4 MG; Start 08/25/18 at 21:30 Diagnostic Test (Pha) (Accu-Chek) 1 ea 02 XX ; Start 08/27/18 at 02:00 Insulin Aspart (Novolog Insulin Pen) NOVOLOG *MILD* ALGORITHM WITH MEALS BEDTIME SC Last administered on 08/28/18 12:44; Admin Dose 1 UNIT; Start 08/26/18 at 21:00 Vancomycin HCl (Vanco Iv Per Pharmacy) VANCOMYCIN PER PHARMACY PER PROTOCOL XX ; Start 08/27/18 at 11:30 Heparin Sodium (Porcine) (Heparin (5000 Units/1ml)) 5,000 unit Q8 SC Last administered on 09/01/18 14:27; Admin Dose 5,000 UNIT; Start 08/29/18 at 14:00 Epoetin Isacc (Epogen (Non Esrd/Non Oncology)) 10,000 units MoWeFr@17 SC Last administered on 08/31/18 17:50; Admin Dose 10,000 UNITS; Start 08/29/18 at 17:00 Albumin Human 50 ml @ 100 mls/hr DURING DIALYSIS PRN IV During HD. Last administered on 08/29/18 13:55; Admin Dose 100 MLS/HR; Start 08/29/18 at 12:30 Aspirin (Aspirin) 81 mg DAILY PO Last administered on 09/01/18at 08:40; Admin Dose 81 MG; Start 08/30/18 at 09:00 Calcium Acetate (Phoslo) 1,334 mg WITH MEALS GTB Last administered on 09/01/18 13:03; Admin Dose 1,334 MG; Start 08/31/18 at 12:00 Albumin Human 100 ml @ 100 mls/hr WITH DIALYSIS IV Last administered on 09/01/18 11:59; Admin Dose 100 MLS/HR; Start 09/01/18 at 10:30 Heparin Sodium (Porcine) (Heparin (1000 Units/ml)) 3,000 unit AFTER DIALYSIS CATHETER Last administered on 09/01/18 13:01; Admin Dose 3,000 UNIT; Start 09/01/18 at 12:30 Kana Phoenix DO Sep 01, 2018 14:32
--- NOTE | 2018-09-01 14:43 | CONS ---
Assessment/Plan Assessment/Plan Hospital Course A: 33 yo M with uncertain PMH who presents for evaluation of altered mental status UDS + for amphetamines, opioids, EtOH, cannabis Of note, he was reported to be severely hypoglycemic in the field. JULIAN+ Clinically consistent with an acute and multifactorial toxic-metabolic encephalopathy. Stroke is unlikely. Seizure is unlikely. CTH (08/20) was unrevealing. Repeat CTH was most notable for bilateral globus pallidus edema P: Await MRI for further characterization Cont medical management per primary Reorient as necessary Limit sedating medications as possible Will follow clinically Result Diagram: 09/01/18 0438 09/01/18 0438 Results 24hrs Laboratory Tests Test 08/31/18 17:43 08/31/18 21:12 09/01/18 04:38 09/01/18 08:38 Bedside Glucose 108 131 114 White Blood 15.6 H Count Red Blood Count 2.65 L Hemoglobin 8.6 L Hematocrit 24.9 L Mean Corpuscular 94.0 Volume Mean Corpuscular 32.5 Hemoglobin Mean Corpuscular 34.5 Hemoglobin Monica nt Red Cell 13.2 Distribution Width Platelet Count 421 #H Mean Platelet 11.2 H Volume Immature 2.100 H Granulocytes % Neutrophils % 78.2 H Lymphocytes % 6.2 L Monocytes % 8.5 Eosinophils % 4.6 Basophils % 0.4 Nucleated Red 0.0 Blood Cells % Immature 0.320 H Granulocytes # Neutrophils # 12.2 H Lymphocytes # 1.0 Monocytes # 1.3 H Eosinophils # 0.7 H Basophils # 0.1 Nucleated Red 0.0 Blood Cells # Sodium Level 131 L Potassium Level 4.5 Chloride Level 96 L Carbon Dioxide 23 Level Anion Gap 12 Blood Urea 76 H Nitrogen Creatinine 8.17 #H Est Glomerular 8 L Filtrat Rate mL/min Glucose Level 111 Calcium Level 7.7 L Test 09/01/18 12:24 Bedside Glucose 135 Consultation Date/Type/Reason Admit Date/Time Aug 20, 2018 at 21:39 Type of Consult Neurology Reason for Consultation lethargy/weakness Requesting Provider: YUMIKO JC MD Date/Time of Note DATE: 09/01/18 TIME: 14:43 24 HR Interval Summary Free Text/Dictation Continues medsurg monitoring. No acute events or changes in pt condition noted. Exam Vital Signs Vitals Vital Signs Date Temp Pulse Resp B/P (MAP) Pulse Ox O2 O2 Flow FiO2 Time Delivery Rate 09/01/18 93 18 135/73 100 Nasal 3.0 13:44 (93) Cannula 09/01/18 98.3 07:35 Intake and Output 08/31/18 08/31/18 09/01/18 1515:00 23:00 07:00 OutputOutput Total 3400 ml BalanceBalance -3400 ml Exam PE: Gen Appearance: No Apparent Distress HEENT: Normocephalic Cardiovascular: Regular rate Lungs: Clear bilaterally Abdomen: Soft Extremities: Dry NE: The patient was lethargic and arousable to loud voice; sparsely verbal. Somewhat disoriented. Language was normal but forced. Fund of knowledge was adequate. Cranial nerve exam was limited by mental status. Pupils were equal and reactive to light. Funduscopic examination was limited. Face was symmetric with normal strength. Hearing was intact. Tone was normal. Muscle bulk was normal. I did not see fasciculations. Arms were moderately weak in the UE (R>L) and severely weak in the LE. Vibration sensation was normal. Temperature and pinprick sensation was normal. Coordination was limited d/t mental status. Gait was deferred due to bedrest. Arm and leg reflexes were symmetric. Phillips's sign was absent. Plantar responses were flexor. TIN GUIDO NP Sep 01, 2018 14:43 GEOVANNI BANKS Sep 02, 2018 06:18
--- NOTE | 2018-09-01 15:04 | CONS ---
Date/Time of Note Date/Time of Note DATE: 09/01/18 TIME: 15:03 Assessment/Plan Assessment/Plan Hospital Course 1200 Patient is in dialysis he is awake looks comfortable denies pain. No fevers. WBC 15.6 platelets 421 neutrophils 78.2. Indwelling: Right femoral Saurabh, Suh Antimicrobials: Vancomycin Physical examination: Well-nourished well-developed middle-aged man who is in no distress. Head atraumatic normocephalic sclera nonicteric. Neck is supple chest rise symmetrical breath sounds diminished bases. Heart: S1-S2, tachycardic. Abdomen soft bowel sounds present. Extremities with bilateral edema Assessment: 1. Persistent leukocytosis, s/p fevers 2. Gram-positive cocci bacteremia, possibly line sepsis, s/p TLC dc'd 3. Status post acute encephalopathy 4. Status post acute hypoxemic respiratory failure 5. Pulmonary edema 6. Acute renal failure, on hemodialysis 7. Severe anasarca 8. History of polysubstance abuse Plan: Clinically stable, WBC trending down, continue present care, aspiration precautions, neurology recommendations. Consider change Saurabh catheter Result Diagram: 09/01/18 0438 09/01/18 0438 Results 24hrs Laboratory Tests Test 08/31/18 17:43 08/31/18 21:12 09/01/18 04:38 09/01/18 08:38 Bedside Glucose 108 131 114 White Blood 15.6 H Count Red Blood Count 2.65 L Hemoglobin 8.6 L Hematocrit 24.9 L Mean Corpuscular 94.0 Volume Mean Corpuscular 32.5 Hemoglobin Mean Corpuscular 34.5 Hemoglobin Monica nt Red Cell 13.2 Distribution Width Platelet Count 421 #H Mean Platelet 11.2 H Volume Immature 2.100 H Granulocytes % Neutrophils % 78.2 H Lymphocytes % 6.2 L Monocytes % 8.5 Eosinophils % 4.6 Basophils % 0.4 Nucleated Red 0.0 Blood Cells % Immature 0.320 H Granulocytes # Neutrophils # 12.2 H Lymphocytes # 1.0 Monocytes # 1.3 H Eosinophils # 0.7 H Basophils # 0.1 Nucleated Red 0.0 Blood Cells # Sodium Level 131 L Potassium Level 4.5 Chloride Level 96 L Carbon Dioxide 23 Level Anion Gap 12 Blood Urea 76 H Nitrogen Creatinine 8.17 #H Est Glomerular 8 L Filtrat Rate mL/min Glucose Level 111 Calcium Level 7.7 L Test 09/01/18 12:24 Bedside Glucose 135 Consultation Date/Type/Reason Admit Date/Time Aug 20, 2018 at 21:39 Initial Consult Date 08/21/18 Type of Consult id Requesting Provider: YUMIKO JC MD Exam/Review of Systems Vital Signs Vitals Vital Signs Date Temp Pulse Resp B/P (MAP) Pulse Ox O2 O2 Flow FiO2 Time Delivery Rate 09/01/18 93 18 135/73 100 Nasal 3.0 13:44 (93) Cannula 09/01/18 98.3 07:35 Intake and Output 08/31/18 08/31/18 09/01/18 1515:00 23:00 07:00 OutputOutput Total 3400 ml BalanceBalance -3400 ml Medications Medications Current Medications Albuterol (Ventolin Hfa) 4 puff Q2H RESP THERAPY PRN INH SHORTNESS OF BREATH; Start 08/20/18 at 22:00 Ipratropium [place] (Atrovent Hfa) 4 puff Q2H RESP THERAPY PRN INH SHORTNESS OF BREATH; Start 08/20/18 at 22:00 Acetaminophen (Tylenol Liquid) 650 mg Q6H PRN PO PAIN LEVEL 1-3 OR FEVER Last administered on 09/01/18at 13:03; Admin Dose 650 MG; Start 08/20/18 at 22:00 Miscellaneous Information 1 ea NOTE XX ; Start 08/21/18 at 16:30 Glucose (Glutose) 15 gm Q15M PRN PO DECREASED GLUCOSE; Start 08/21/18 at 16:30 Glucose (Glutose) 22.5 gm Q15M PRN PO DECREASED GLUCOSE; Start 08/21/18 at 16:30 Dextrose (D50w Syringe) 25 ml Q15M PRN IV DECREASED GLUCOSE; Start 08/21/18 at 16:30 Dextrose (D50w Syringe) 50 ml Q15M PRN IV DECREASED GLUCOSE; Start 08/21/18 at 16:30 Glucagon (Glucagen) 1 mg Q15M PRN IM DECREASED GLUCOSE; Start 08/21/18 at 16:30 Glucose (Glutose) 15 gm Q15M PRN BUCCAL DECREASED GLUCOSE; Start 08/21/18 at 16:30 Metoprolol Tartrate (Lopressor) 25 mg BID PO Last administered on 08/31/18at 21:09; Admin Dose 25 MG; Start 08/23/18 at 21:00 Epinephrine (Racepinephrine 2.25% (Neb)) 0.25 ml Q3H RESP THERAPY PRN HHN STRIDOR; Start 08/23/18 at 17:00 Lansoprazole (Prevacid) 30 mg 0600,1800 GTB Last administered on 08/31/18 17:49; Admin Dose 30 MG; Start 08/24/18 at 18:00 Ondansetron HCl (Zofran Inj) 4 mg Q6H PRN IV NAUSEA AND/OR VOMITING Last administered on 08/25/18 21:47; Admin Dose 4 MG; Start 08/25/18 at 21:30 Diagnostic Test (Pha) (Accu-Chek) 1 02 XX ; Start 08/27/18 at 02:00 Insulin Aspart (Novolog Insulin Pen) NOVOLOG *MILD* ALGORITHM WITH MEALS BEDTIME SC Last administered on 08/28/18 12:44; Admin Dose 1 UNIT; Start 08/26/18 at 21:00 Vancomycin HCl (Vanco Iv Per Pharmacy) VANCOMYCIN PER PHARMACY PER PROTOCOL XX ; Start 08/27/18 at 11:30 Heparin Sodium (Porcine) (Heparin (5000 Units/1ml)) 5,000 unit Q8 SC Last administered on 09/01/18 14:27; Admin Dose 5,000 UNIT; Start 08/29/18 at 14:00 Epoetin Isacc (Epogen (Non Esrd/Non Oncology)) 10,000 units MoWeFr@17 SC Last administered on 08/31/18at 17:50; Admin Dose 10,000 UNITS; Start 08/29/18 at 17:00 Albumin Human 50 ml @ 100 mls/hr DURING DIALYSIS PRN IV During HD. Last administered on 08/29/18 13:55; Admin Dose 100 MLS/HR; Start 08/29/18 at 12:30 Aspirin (Aspirin) 81 mg DAILY PO Last administered on 09/01/18 08:40; Admin Dose 81 MG; Start 08/30/18 at 09:00 Calcium Acetate (Phoslo) 1,334 mg WITH MEALS GTB Last administered on 09/01/18 13:03; Admin Dose 1,334 MG; Start 08/31/18 at 12:00 Albumin Human 100 ml @ 100 mls/hr WITH DIALYSIS IV Last administered on 12/2 7/18at 11:59; Admin Dose 100 MLS/HR; Start 09/01/18 at 10:30 Heparin Sodium (Porcine) (Heparin (1000 Units/ml)) 3,000 unit AFTER DIALYSIS CATHETER Last administered on 09/01/18at 13:01; Admin Dose 3,000 UNIT; Start 09/01/18 at 12:30 BRIANNE COYLE NP Sep 01, 2018 15:04
--- NOTE | 2018-09-01 17:28 | CONS ---
Date/Time of Note Date/Time of Note DATE: 09/01/18 TIME: 16:54 Assessment/Plan Assessment/Plan Hospital Course Summary Assessment and Plan: Assessment: Melena/normocytic anemia Bacteremia Acute ventilatory dependent respiratory failure - Extubated s/p 08/24, Acute encephalopathy Elevated troponin-now appears stable- Likely demand ischemia from drug use. Coagulopathy Transaminitis -May be from shock liver or drug use. - Hep B, Hep C negative. -Continue to monitor LFTs Rhabdomyolysis Polysubstance abuse Plan: Check INR and trop in am NPO after midnight Tentative EGD tomorrow, however pt is not able to consent, and we do not have a number for family. On patient facesheet there is a number of [phone] unclear if this is pt;s cell, work- number, or next of kin. I called no answer. Monitor labs- recommend holding heparin Patient seen in collaboration with Dr. Ordoñez Result Diagram: 09/01/18 0438 09/01/18 0438 Results 24hrs Laboratory Tests Test 08/31/18 17:43 08/31/18 21:12 09/01/18 04:38 09/01/18 08:38 Bedside Glucose 108 131 114 White Blood 15.6 H Count Red Blood Count 2.65 L Hemoglobin 8.6 L Hematocrit 24.9 L Mean Corpuscular 94.0 Volume Mean Corpuscular 32.5 Hemoglobin Mean Corpuscular 34.5 Hemoglobin Monica nt Red Cell 13.2 Distribution Width Platelet Count 421 #H Mean Platelet 11.2 H Volume Immature 2.100 H Granulocytes % Neutrophils % 78.2 H Lymphocytes % 6.2 L Monocytes % 8.5 Eosinophils % 4.6 Basophils % 0.4 Nucleated Red 0.0 Blood Cells % Immature 0.320 H Granulocytes # Neutrophils # 12.2 H Lymphocytes # 1.0 Monocytes # 1.3 H Eosinophils # 0.7 H Basophils # 0.1 Nucleated Red 0.0 Blood Cells # Sodium Level 131 L Potassium Level 4.5 Chloride Level 96 L Carbon Dioxide 23 Level Anion Gap 12 Blood Urea 76 H Nitrogen Creatinine 8.17 #H Est Glomerular 8 L Filtrat Rate mL/min Glucose Level 111 Calcium Level 7.7 L Test 09/01/18 12:24 Bedside Glucose 135 CC: FRENCH ORDOÑEZ MD ; Consultation Date/Type/Reason Admit Date/Time Aug 20, 2018 at 21:39 Date of Consultation: Sep 01, 2018 Type of Consult GI Reason for Consultation dark stools/anemia Hx of Present Illness This is a 33-year-old male who was admitted to the hospital with AKA secondary to rhabdomyolysis toxicology screen positive for alcohol, methamphetamines, cannabis and opioids during hospitalization patient diagnosed with renal failure, bacteremia, acute respiratory failure requiring intubation and status post extubation 08/24, elevated troponins likely secondary to demand ischemia from drug use, elevated liver enzymes possibly related to liver shock have been trending down as well as coagulopathy again possibly secondary to liver and/or renal issues patient with history of polysubstance abuse. She has been consulted for new evidence of dark stools hemoglobin has been trending down for the past several days currently hemoglobin is 8.6, hematocrit 24.9, MCV 94.0, MCH 32.5. Patient is alert and oriented x3 unable to comprehend plan for upper endoscopy attempted to find family to review procedure and obtain consent however no number for family is listed there is one number but unclear if it is patient cell phone versus a work phone versus other I called no answer. The patient's father comes and visits daily we will tentatively plan for EGD tomorrow pending appropriate consent. Review of Systems: A 12 system, review was conducted and is negative except as noted in the HPI or here. Past Medical History Medications Current Medications Albuterol (Ventolin Hfa) 4 puff Q2H RESP THERAPY PRN INH SHORTNESS OF BREATH; Start 08/20/18 at 22:00 Ipratropium [place] (Atrovent Hfa) 4 puff Q2H RESP THERAPY PRN INH SHORTNESS OF BREATH; Start 08/20/18 at 22:00 Acetaminophen (Tylenol Liquid) 650 mg Q6H PRN PO PAIN LEVEL 1-3 OR FEVER Last administered on 09/01/18at 13:03; Admin Dose 650 MG; Start 08/20/18 at 22:00 Miscellaneous Information 1 ea NOTE XX ; Start 08/21/18 at 16:30 Glucose (Glutose) 15 gm Q15M PRN PO DECREASED GLUCOSE; Start 08/21/18 at 16:30 Glucose (Glutose) 22.5 gm Q15M PRN PO DECREASED GLUCOSE; Start 08/21/18 at 16:30 Dextrose (D50w Syringe) 25 ml Q15M PRN IV DECREASED GLUCOSE; Start 08/21/18 at 16:30 Dextrose (D50w Syringe) 50 ml Q15M PRN IV DECREASED GLUCOSE; Start 08/21/18 at 16:30 Glucagon (Glucagen) 1 mg Q15M PRN IM DECREASED GLUCOSE; Start 08/21/18 at 16:30 Glucose (Glutose) 15 gm Q15M PRN BUCCAL DECREASED GLUCOSE; Start 08/21/18 at 16:30 Metoprolol Tartrate (Lopressor) 25 mg BID PO Last administered on 08/31/18at 21:09; Admin Dose 25 MG; Start 08/23/18 at 21:00 Epinephrine (Racepinephrine 2.25% (Neb)) 0.25 ml Q3H RESP THERAPY PRN HHN STRIDOR; Start 08/23/18 at 17:00 Lansoprazole (Prevacid) 30 mg 0600,1800 GTB Last administered on 08/31/18at 17: 49; Admin Dose 30 MG; Start 08/24/18 at 18:00 Ondansetron HCl (Zofran Inj) 4 mg Q6H PRN IV NAUSEA AND/OR VOMITING Last administered on 08/25/18at 21:47; Admin Dose 4 MG; Start 08/25/18 at 21:30 Diagnostic Test (Pha) (Accu-Chek) 1 02 XX ; Start 08/27/18 at 02:00 Insulin Aspart (Novolog Insulin Pen) NOVOLOG *MILD* ALGORITHM WITH MEALS BEDTIME SC Last administered on 08/28/18at 12:44; Admin Dose 1 UNIT; Start 08/26/18 at 21:00 Vancomycin HCl (Vanco Iv Per Pharmacy) VANCOMYCIN PER PHARMACY PER PROTOCOL XX ; Start 08/27/18 at 11:30 Heparin Sodium (Porcine) (Heparin (5000 Units/1ml)) 5,000 unit Q8 SC Last administered on 09/01/18at 14:27; Admin Dose 5,000 UNIT; Start 08/29/18 at 14:0 0 Epoetin Isacc (Epogen (Non Esrd/Non Oncology)) 10,000 units MoWeFr@17 SC Last administered on 08/31/18at 17:50; Admin Dose 10,000 UNITS; Start 08/29/18 at 17:00 Albumin Human 50 ml @ 100 mls/hr DURING DIALYSIS PRN IV During HD. Last administered on 08/29/18at 13:55; Admin Dose 100 MLS/HR; Start 08/29/18 at 12:30 Aspirin (Aspirin) 81 mg DAILY PO Last administered on 09/01/18at 08:40; Admin Dose 81 MG; Start 08/30/18 at 09:00 Calcium Acetate (Phoslo) 1,334 mg WITH MEALS GTB Last administered on 09/01/18at 13:03; Admin Dose 1,334 MG; Start 08/31/18 at 12:00 Albumin Human 100 ml @ 100 mls/hr WITH DIALYSIS IV Last administered on 09/01/18at 11:59; Admin Dose 100 MLS/HR; Start 09/01/18 at 10:30 Heparin Sodium (Porcine) (Heparin (1000 Units/ml)) 3,000 unit AFTER DIALYSIS CATHETER Last administered on 09/01/18at 13:01; Admin Dose 3,000 UNIT; Start 09/01/18 at 12:30 Sucralfate (Carafate Susp) 1 gm QID PO ; Start 09/01/18 at 16:00 Allergies: Coded Allergies: No Known Allergies (Verified Allergy, Unknown, 08/24/18) Verified per pt. Oriented at this time. Social History Alcohol Use: other (Previous admission for alcohol use.) Exam/Review of Systems Vital Signs Vitals Vital Signs Date Temp Pulse Resp B/P (MAP) Pulse Ox O2 O2 Flow FiO2 Time Delivery Rate 09/01/18 99.0 86 18 112/66 100 15:50 (81) 09/01/18 Nasal 3.0 13:44 Cannula Intake and Output 08/31/18 08/31/18 09/01/18 1414:59 22:59 06:59 OutputOutput Total 3400 ml BalanceBalance -3400 ml Exam PHYSICAL EXAMINATION: GENERAL: Alert & oriented to name, place, and year, speaks slowly, confused SKIN: No lesions EYES: Pupils equal reactive to light, no discharge. EARS/NOSE AND THROAT: Ears normal, nose normal, oropharynx normal. NECK: Supple, no masses CHEST: Inspection within normal limits. CARDIOVASCULAR: Heart: Regular rate and rhythm RESPIRATORY: Lungs clear to auscultation GASTROINTESTINAL AND LIVER: Abdomen: Soft, non tenderness, non-distended, no hernias, no masses, no organomegaly, no ascites, no guarding, no rebound tenderness, normoactive bowel sounds. Rectal: Deferred. EXT: edema to BLUE/BLE : scrotal swelling, f/u in place with hematuria Medications Medications Current Medications Albuterol (Ventolin Hfa) 4 puff Q2H RESP THERAPY PRN INH SHORTNESS OF BREATH; Start 08/20/18 at 22:00 Ipratropium [place] (Atrovent Hfa) 4 puff Q2H RESP THERAPY PRN INH SHORTNESS OF BREATH; Start 08/20/18 at 22:00 Acetaminophen (Tylenol Liquid) 650 mg Q6H PRN PO PAIN LEVEL 1-3 OR FEVER Last administered on 09/01/18at 13:03; Admin Dose 650 MG; Start 08/20/18 at 22:00 Miscellaneous Information 1 ea NOTE XX ; Start 08/21/18 at 16:30 Glucose (Glutose) 15 gm Q15M PRN PO DECREASED GLUCOSE; Start 08/21/18 at 16:30 Glucose (Glutose) 22.5 gm Q15M PRN PO DECREASED GLUCOSE; Start 08/21/18 at 16:30 Dextrose (D50w Syringe) 25 ml Q15M PRN IV DECREASED GLUCOSE; Start 08/21/18 at 16:30 Dextrose (D50w Syringe) 50 ml Q15M PRN IV DECREASED GLUCOSE; Start 08/21/18 at 16:30 Glucagon (Glucagen) 1 mg Q15M PRN IM DECREASED GLUCOSE; Start 08/21/18 at 16:30 Glucose (Glutose) 15 gm Q15M PRN BUCCAL DECREASED GLUCOSE; Start 08/21/18 at 16:30 Metoprolol Tartrate (Lopressor) 25 mg BID PO Last administered on 08/31/18at 21:09; Admin Dose 25 MG; Start 08/23/18 at 21:00 Epinephrine (Racepinephrine 2.25% (Neb)) 0.25 ml Q3H RESP THERAPY PRN HHN STRIDOR; Start 08/23/18 at 17:00 Lansoprazole (Prevacid) 30 mg 0600,1800 GTB Last administered on 08/31/18at 17:49; Admin Dose 30 MG; Start 08/24/18 at 18:00 Ondansetron HCl (Zofran Inj) 4 mg Q6H PRN IV NAUSEA AND/OR VOMITING Last administered on 08/25/18at 21:47; Admin Dose 4 MG; Start 08/25/18 at 21:30 Diagnostic Test (Pha) (Accu-Chek) 1 ea 02 XX ; Start 08/27/18 at 02:00 Insulin Aspart (Novolog Insulin Pen) NOVOLOG *MILD* ALGORITHM WITH MEALS BEDTIME SC Last administered on 08/28/18at 12:44; Admin Dose 1 UNIT; Start 08/26/18 at 21:00 Vancomycin HCl (Vanco Iv Per Pharmacy) VANCOMYCIN PER PHARMACY PER PROTOCOL XX ; Start 08/27/18 at 11:30 Heparin Sodium (Porcine) (Heparin (5000 Units/1ml)) 5,000 unit Q8 SC Last administered on 09/01/18 14:27; Admin Dose 5,000 UNIT; Start 08/29/18 at 14:00 Epoetin Isacc (Epogen (Non Esrd/Non Oncology)) 10,000 units MoWeFr@17 SC Last administered on 08/31/18at 17:50; Admin Dose 10,000 UNITS; Start 08/29/18 at 17:00 Albumin Human 50 ml @ 100 mls/hr DURING DIALYSIS PRN IV During HD. Last administered on 08/29/18at 13:55; Admin Dose 100 MLS/HR; Start 08/29/18 at 12:30 Aspirin (Aspirin) 81 mg DAILY PO Last administered on 09/01/18at 08:40; Admin Dose 81 MG; Start 08/30/18 at 09:00 Calcium Acetate (Phoslo) 1,334 mg WITH MEALS GTB Last administered on 09/01/18at 13:03; Admin Dose 1,334 MG; Start 08/31/18 at 12:00 Albumin Human 100 ml @ 100 mls/hr WITH DIALYSIS IV Last administered on 09/01/18at 11:59; Admin Dose 100 MLS/HR; Start 09/01/18 at 10:30 Heparin Sodium (Porcine) (Heparin (1000 Units/ml)) 3,000 unit AFTER DIALYSIS CATHETER Last administered on 09/01/18at 13:01; Admin Dose 3,000 UNIT; Start 09/01/18 at 12:30 Sucralfate (Carafate Susp) 1 gm QID PO ; Start 09/01/18 at 16:00 TOPHER BROWN Sep 01, 2018 17:04
[2018-09-01] MEDS: PANTOPRAZOLE 40 MG INJ IV SCH (18:15)
[2018-09-01] MEDS: SUCRALFATE (100 MG/ML) 10ML CUP PO SCH ×2 (18:15→21:33)
[2018-09-02] VITALS (13 sets, daily range): BP systolic 111–145; BP diastolic 58–72; PULSE 84–96; RESP 18–26
[2018-09-02] MEDS: ACCU-CHEK XX SCH (02:00)
[2018-09-02] MEDS: HEPARIN 5,000 UNIT/1 ML VIAL SC SCH (06:00)
[2018-09-02] MEDS: PANTOPRAZOLE 40 MG INJ IV SCH ×2 (06:20→17:26)
[2018-09-02] MEDS: CALCIUM ACETATE 667 MG CAP GTB SCH ×3 (08:00→17:26)
[2018-09-02] MEDS: METOPROLOL 25 MG TAB PO SCH ×2 (09:00→21:10)
[2018-09-02] MEDS ORDERED: INSULIN ASPART [NOVOLOG] 3 ML PEN SC SCH (09:00)
[2018-09-02] MEDS: SUCRALFATE (100 MG/ML) 10ML CUP PO SCH ×4 (09:00→21:10)
[2018-09-02] MEDS: ASPIRIN 81 MG TAB PO SCH (09:00)
[2018-09-02] MEDS: Insulin NOVOLOG SS MILD Algorithm (NPO/TPN/ENTERAL FEEDS) SC SCH ×4 (09:00→21:00)
--- NOTE | 2018-09-02 10:10 | CONS ---
Date/Time of Note Date/Time of Note DATE: 09/02/18 TIME: 10:07 Assessment/Plan Assessment/Plan Assessment/Plan 1. ARF, next HD tomm, sec to rhabdo 2. Melena noted, gi eval noted 3. No signif change in extrem weakness, brain mri noted, await neuro follow up, eval cervical spine ?? 4. Inc anemia, transfuse if needed 5. Vol overload improving Result Diagram: 09/02/18 0559 09/02/18 0559 Results 24hrs Laboratory Tests Test 09/01/18 12:24 09/01/18 18:12 09/01/18 21:41 09/02/18 05:59 Bedside Glucose 135 166 114 White Blood 14.1 H Count Red Blood Count 2.59 L Hemoglobin 8.4 L Hematocrit 24.7 L Mean Corpuscular 95.4 Volume Mean Corpuscular 32.4 Hemoglobin Mean Corpuscular 34.0 Hemoglobin Monica nt Red Cell 13.5 Distribution Width Platelet Count 456 H Mean Platelet 11.2 H Volume Immature 2.000 H Granulocytes % Neutrophils % 78.4 H Lymphocytes % 7.3 L Monocytes % 8.4 Eosinophils % 3.6 Basophils % 0.3 Nucleated Red 0.0 Blood Cells % Immature 0.280 H Granulocytes # Neutrophils # 11.1 H Lymphocytes # 1.0 Monocytes # 1.2 H Eosinophils # 0.5 Basophils # 0.0 Nucleated Red 0.0 Blood Cells # Prothrombin Time 14.8 Prothrombin Time 1.2 Ratio INR 1.14 International Normalized Ratio Sodium Level 134 L Potassium Level 4.9 Chloride Level 95 L Carbon Dioxide 28 Level Anion Gap 11 Blood Urea 62 H Nitrogen Creatinine 6.88 H Est Glomerular 9 L Filtrat Rate mL/min Glucose Level 108 Calcium Level 8.5 Phosphorus Level 7.8 #H Magnesium Level 2.5 Troponin I < 0.012 Test 09/02/18 08:30 Bedside Glucose 103 Consultation Date/Type/Reason Admit Date/Time Aug 20, 2018 at 21:39 Initial Consult Date 08/21/18 Requesting Provider: YUMIKO JC MD 24 HR Interval Summary Constitutional: other (more alert) Detailed Summary Respiratory: No cough Cardiovascular: chest pain Gastrointestinal: pain Exam/Review of Systems Vital Signs Vitals Vital Signs Date Temp Pulse Resp B/P (MAP) Pulse Ox O2 O2 Flow FiO2 Time Delivery Rate 09/02/18 99.2 84 20 111/69 100 07:31 (83) 09/02/18 2.0 01:12 09/01/18 Nasal 20:00 Cannula Intake and Output 09/01/18 09/01/18 09/02/18 1515:00 23:00 07:00 IntakeIntake Total 1870 ml 980 ml OutputOutput Total 3120 ml 150 ml 101 ml BalanceBalance -1250 ml 830 ml -101 ml Exam Neck: No jvd Respiratory: diminished breath sounds; No crackles/rales Cardiovascular: regular rate and rhythm Gastrointestinal: soft Extremities: edema (less sacral edema) Neurological: other (responds to simple questions, can move hands but unable to raise arms, can move toes left foot, not right) Medications Medications Current Medications Albuterol (Ventolin Hfa) 4 puff Q2H RESP THERAPY PRN INH SHORTNESS OF BREATH; Start 08/20/18 at 22:00 Ipratropium [place] (Atrovent Hfa) 4 puff Q2H RESP THERAPY PRN INH SHORTNESS OF BREATH; Start 08/20/18 at 22:00 Acetaminophen (Tylenol Liquid) 650 mg Q6H PRN PO PAIN LEVEL 1-3 OR FEVER Last administered on 09/01/18at 21:34; Admin Dose 650 MG; Start 08/20/18 at 22:00 Miscellaneous Information 1 ea NOTE XX ; Start 08/21/18 at 16:30 Glucose (Glutose) 15 gm Q15M PRN PO DECREASED GLUCOSE; Start 08/21/18 at 16:30 Glucose (Glutose) 22.5 gm Q15M PRN PO DECREASED GLUCOSE; Start 08/21/18 at 16:30 Dextrose (D50w Syringe) 25 ml Q15M PRN IV DECREASED GLUCOSE; Start 08/21/18 at 16:30 Dextrose (D50w Syringe) 50 ml Q15M PRN IV DECREASED GLUCOSE; Start 08/21/18 at 16:30 Glucagon (Glucagen) 1 mg Q15M PRN IM DECREASED GLUCOSE; Start 08/21/18 at 16:30 Glucose (Glutose) 15 gm Q15M PRN BUCCAL DECREASED GLUCOSE; Start 08/21/18 at 16:30 Metoprolol Tartrate (Lopressor) 25 mg BID PO Last administered on 08/31/18at 21:09; Admin Dose 25 MG; Start 08/23/18 at 21:00 Epinephrine (Racepinephrine 2.25% (Neb)) 0.25 ml Q3H RESP THERAPY PRN HHN STRIDOR; Start 08/23/18 at 17:00 Ondansetron HCl (Zofran Inj) 4 mg Q6H PRN IV NAUSEA AND/OR VOMITING Last administered on 08/25/18at 21:47; Admin Dose 4 MG; Start 08/25/18 at 21:30 Diagnostic Test (Pha) (Accu-Chek) 1 XX ; Start 08/27/18 at 02:00 Vancomycin HCl (Vanco Iv Per Pharmacy) VANCOMYCIN PER PHARMACY PER PROTOCOL XX ; Start 08/27/18 at 11:30 Heparin Sodium (Porcine) (Heparin (5000 Units/1ml)) 5,000 unit Q8 SC Last administered on 09/01/18at 14:27; Admin Dose 5,000 UNIT; Start 08/29/18 at 14:00; Status Hold Epoetin Isacc (Epogen (Non Esrd/Non Oncology)) 10,000 units MoWeFr@17 SC Last administered on 08/31/18at 17:50; Admin Dose 10,000 UNITS; Start 08/29/18 at 17:00 Albumin Human 50 ml @ 100 mls/hr DURING DIALYSIS PRN IV During HD. Last administered on 08/29/18 13:55; Admin Dose 100 MLS/HR; Start 08/29/18 at 12:30 Aspirin (Aspirin) 81 mg DAILY PO Last administered on 09/01/18at 08:40; Admin Dose 81 MG; Start 08/30/18 at 09:00 Calcium Acetate (Phoslo) 1,334 mg WITH MEALS GTB Last administered on 09/01/18at 18:15; Admin Dose 1,334 MG; Start 08/31/18 at 12:00 Albumin Human 100 ml @ 100 mls/hr WITH DIALYSIS IV Last administered on 08/07 03/23at 11:59; Admin Dose 100 MLS/HR; Start 09/01/18 at 10:30 Heparin Sodium (Porcine) (Heparin (1000 Units/ml)) 3,000 unit AFTER DIALYSIS CATHETER Last administered on 09/01/18at 13:01; Admin Dose 3,000 UNIT; Start 09/01/18 at 12:30 Sucralfate (Carafate Susp) 1 gm QID PO Last administered on 09/01/18at 21:33; Admin Dose 1 GM; Start 09/01/18 at 16:00 Pantoprazole (Protonix Iv) 40 mg BID@18 IV Last administered on 09/02/18at 06:20; Admin Dose 40 MG; Start 09/01/18 at 18:00 Insulin Aspart (Novolog Insulin Pen) (Adult SC Insulin - Mild Algorithm)... Q4 SC ; Start 09/02/18 at 09:00 MAXIMO TAY MD Sep 02, 2018 10:10
--- NOTE | 2018-09-02 11:00 | CONS ---
Date/Time of Note Date/Time of Note DATE: 09/02/18 TIME: 10:56 Assessment/Plan Assessment/Plan Hospital Course No acute events. No fevers. Patient looks comfortable, no fevers, still with significant weakness Indwelling: Right femoral Saurabh, Suh Antimicrobials: Vancomycin Physical examination: Well-nourished well-developed middle-aged man who is in no distress. Head atraumatic normocephalic sclera nonicteric. Neck is supple chest rise symmetrical breath sounds diminished bases. Heart: S1-S2, tachycar dic. Abdomen soft bowel sounds present. Extremities with bilateral edema Assessment: 1. Leukocytosis, s/p fevers ==> improving 2. Gram-positive cocci bacteremia, possibly line sepsis, s/p TLC dc'd 3. Status post acute encephalopathy 4. Status post acute hypoxemic respiratory failure 5. Pulmonary edema 6. Acute renal failure, on hemodialysis 7. Severe anasarca 8. History of polysubstance abuse 9. Muscle weakness Plan: Clinically stable, WBC slowly decreasing, seen for neurology, MRI noted, continue Vanco. Spoke to Dr Monson==> pt will need at least another week of HD, if pt spikes fever or WBC increases will consider changing saurabh Result Diagram: 09/02/18 0559 09/02/18 0559 Results 24hrs Laboratory Tests Test 09/01/18 12:24 09/01/18 18:12 09/01/18 21:41 09/02/18 05:59 Bedside Glucose 135 166 114 White Blood 14.1 H Count Red Blood Count 2.59 L Hemoglobin 8.4 L Hematocrit 24.7 L Mean Corpuscular 95.4 Volume Mean Corpuscular 32.4 Hemoglobin Mean Corpuscular 34.0 Hemoglobin Monica nt Red Cell 13.5 Distribution Width Platelet Count 456 H Mean Platelet 11.2 H Volume Immature 2.000 H Granulocytes % Neutrophils % 78.4 H Lymphocytes % 7.3 L Monocytes % 8.4 Eosinophils % 3.6 Basophils % 0.3 Nucleated Red 0.0 Blood Cells % Immature 0.280 H Granulocytes # Neutrophils # 11.1 H Lymphocytes # 1.0 Monocytes # 1.2 H Eosinophils # 0.5 Basophils # 0.0 Nucleated Red 0.0 Blood Cells # Prothrombin Time 14.8 Prothrombin Time 1.2 Ratio INR 1.14 International Normalized Ratio Sodium Level 134 L Potassium Level 4.9 Chloride Level 95 L Carbon Dioxide 28 Level Anion Gap 11 Blood Urea 62 H Nitrogen Creatinine 6.88 H Est Glomerular 9 L Filtrat Rate mL/min Glucose Level 108 Calcium Level 8.5 Phosphorus Level 7.8 #H Magnesium Level 2.5 Troponin I < 0.012 Test 09/02/18 08:30 Bedside Glucose 103 Consultation Date/Type/Reason Admit Date/Time Aug 20, 2018 at 21:39 Initial Consult Date 08/21/18 Type of Consult id Requesting Provider: YUMIKO JC MD Exam/Review of Systems Vital Signs Vitals Vital Signs Date Temp Pulse Resp B/P (MAP) Pulse Ox O2 O2 Flow FiO2 Time Delivery Rate 09/02/18 99.2 84 20 111/69 100 07:31 (83) 09/02/18 2.0 01:12 09/01/18 Nasal 20:00 Cannula Intake and Output 09/01/18 09/01/18 09/02/18 1515:00 23:00 07:00 IntakeIntake Total 1870 ml 980 ml OutputOutput Total 3120 ml 150 ml 101 ml BalanceBalance -1250 ml 830 ml -101 ml Medications Medications Current Medications Albuterol (Ventolin Hfa) 4 puff Q2H RESP THERAPY PRN INH SHORTNESS OF BREATH; Start 08/20/18 at 22:00 Ipratropium [place] (Atrovent Hfa) 4 puff Q2H RESP THERAPY PRN INH SHORTNESS OF BREATH; Start 08/20/18 at 22:00 Acetaminophen (Tylenol Liquid) 650 mg Q6H PRN PO PAIN LEVEL 1-3 OR FEVER Last administered on 09/01/18at 21:34; Admin Dose 650 MG; Start 08/20/18 at 22:00 Miscellaneous Information 1 ea NOTE XX ; Start 08/21/18 at 16:30 Glucose (Glutose) 15 gm Q15M PRN PO DECREASED GLUCOSE; Start 08/21/18 at 16:30 Glucose (Glutose) 22.5 gm Q15M PRN PO DECREASED GLUCOSE; Start 08/21/18 at 16:30 Dextrose (D50w Syringe) 25 ml Q15M PRN IV DECREASED GLUCOSE; Start 08/21/18 at 16:30 Dextrose (D50w Syringe) 50 ml Q15M PRN IV DECREASED GLUCOSE; Start 08/21/18 at 16:30 Glucagon (Glucagen) 1 mg Q15M PRN IM DECREASED GLUCOSE; Start 08/21/18 at 16:30 Glucose (Glutose) 15 gm Q15M PRN BUCCAL DECREASED GLUCOSE; Start 08/21/18 at 16:30 Metoprolol Tartrate (Lopressor) 25 mg BID PO Last administered on 08/31/18at 21:09; Admin Dose 25 MG; Start 08/23/18 at 21:00 Epinephrine (Racepinephrine 2.25% (Neb)) 0.25 ml Q3H RESP THERAPY PRN HHN STRIDOR; Start 08/23/18 at 17:00 Ondansetron HCl (Zofran Inj) 4 mg Q6H PRN IV NAUSEA AND/OR VOMITING Last administered on 08/25/18at 21:47; Admin Dose 4 MG; Start 08/25/18 at 21:30 Diagnostic Test (Pha) (Accu-Chek) 1 02 XX ; Start 08/27/18 at 02:00 Vancomycin HCl (Vanco Iv Per Pharmacy) VANCOMYCIN PER PHARMACY PER PROTOCOL XX ; Start 08/27/18 at 11:30 Heparin Sodium (Porcine) (Heparin (5000 Units/1ml)) 5,000 unit Q8 SC Last administered on 09/01/18at 14:27; Admin Dose 5,000 UNIT; Start 08/29/18 at 14:00; Status Hold Epoetin Isacc (Epogen (Non Esrd/Non Oncology)) 10,000 units MoWeFr@17 SC Last administered on 08/31/18at 17:50; Admin Dose 10,000 UNITS; Start 08/29/18 at 17:00 Albumin Human 50 ml @ 100 mls/hr DURING DIALYSIS PRN IV During HD. Last administered on 08/29/18at 13:55; Admin Dose 100 MLS/HR; Start 08/29/18 at 12:30 Aspirin (Aspirin) 81 mg DAILY PO Last administered on 09/01/18at 08:40; Admin Dose 81 MG; Start 08/30/18 at 09:00 Calcium Acetate (Phoslo) 1,334 mg WITH MEALS GTB Last administered on 09/01/18at 18:15; Admin Dose 1,334 MG; Start 08/31/18 at 12:00 Albumin Human 100 ml @ 100 mls/hr WITH DIALYSIS IV Last administered on 09/01/18at 11:59; Admin Dose 100 MLS/HR; Start 09/01/18 at 10:30 Heparin Sodium (Porcine) (Heparin (1000 Units/ml)) 3,000 unit AFTER DIALYSIS CATHETER Last administered on 09/01/18at 13:01; Admin Dose 3,000 UNIT; Start 09/01/18 at 12:30 Sucralfate (Carafate Susp) 1 gm QID PO Last administered on 09/01/18at 21:33; Admin Dose 1 GM; Start 09/01/18 at 16:00 Pantoprazole (Protonix Iv) 40 mg BID@18 IV Last administered on 09/02/18at 06:20; Admin Dose 40 MG; Start 09/01/18 at 18:00 Insulin Aspart (Novolog Insulin Pen) (Adult SC Insulin - Mild Algorithm)... Q4 SC ; Start 09/02/18 at 09:00 BRIANNE COYLE NP Sep 02, 2018 11:00
--- NOTE | 2018-09-02 12:00 | CONS ---
Date/Time of Note Date/Time of Note DATE: 09/02/18 TIME: 11:59 Assessment/Plan Assessment/Plan Assessment/Plan Acute respiratory failure status post extubation Low normal left ventricular ejection fraction 50% Sepsis Acute kidney injury on hemodialysis Myocardial infarction, likely type II Encephalopathy Liver dysfunction Illicit drug use -Hemoglobin on the lower side, if continues to decrease, low threshold to stop aspirin. No statin given abnormal LFTs. Continue beta-kishan as tolerated. Fluid management via hemodialysis as per nephrology Result Diagram: 09/02/18 0559 09/02/18 0559 Results 24hrs Laboratory Tests Test 09/01/18 12:24 09/01/18 18:12 09/01/18 21:41 09/02/18 05:59 Bedside Glucose 135 166 114 White Blood 14.1 H Count Red Blood Count 2.59 L Hemoglobin 8.4 L Hematocrit 24.7 L Mean Corpuscular 95.4 Volume Mean Corpuscular 32.4 Hemoglobin Mean Corpuscular 34.0 Hemoglobin Monica nt Red Cell 13.5 Distribution Width Platelet Count 456 H Mean Platelet 11.2 H Volume Immature 2.000 H Granulocytes % Neutrophils % 78.4 H Lymphocytes % 7.3 L Monocytes % 8.4 Eosinophils % 3.6 Basophils % 0.3 Nucleated Red 0.0 Blood Cells % Immature 0.280 H Granulocytes # Neutrophils # 11.1 H Lymphocytes # 1.0 Monocytes # 1.2 H Eosinophils # 0.5 Basophils # 0.0 Nucleated Red 0.0 Blood Cells # Prothrombin Time 14.8 Prothrombin Time 1.2 Ratio INR 1.14 International Normalized Ratio Sodium Level 134 L Potassium Level 4.9 Chloride Level 95 L Carbon Dioxide 28 Level Anion Gap 11 Blood Urea 62 H Nitrogen Creatinine 6.88 H Est Glomerular 9 L Filtrat Rate mL/min Glucose Level 108 Calcium Level 8.5 Phosphorus Level 7.8 #H Magnesium Level 2.5 Troponin I < 0.012 Test 09/02/18 08:30 Bedside Glucose 103 Consultation Date/Type/Reason Admit Date/Time Aug 20, 2018 at 21:39 Initial Consult Date 08/21/18 Type of Consult cv Requesting Provider: YUMIKO JC MD 24 HR Interval Summary Free Text/Dictation Denies shortness of breath, chest pain Exam/Review of Systems Vital Signs Vitals Vital Signs Date Temp Pulse Resp B/P (MAP) Pulse Ox O2 O2 Flow FiO2 Time Delivery Rate 09/02/18 Nasal 3.0 09:00 Cannula 09/02/18 99.2 84 20 111/69 100 07:31 (83) Intake and Output 09/01/18 09/01/18 09/02/18 1515:00 23:00 07:00 IntakeIntake Total 1870 ml 980 ml OutputOutput Total 3120 ml 150 ml 101 ml BalanceBalance -1250 ml 830 ml -101 ml Exam Awake, follows commands, no apparent distress Head: normocephalic Respiratory: other (Coarse breath sounds bilaterally, no wheezing) Cardiovascular: regular rate and rhythm, other (S1-S2 heard) Gastrointestinal: soft, non-tender, bowel sounds Extremities: edema Medications Medications Current Medications Albuterol (Ventolin Hfa) 4 puff Q2H RESP THERAPY PRN INH SHORTNESS OF BREATH; Start 08/20/18 at 22:00 Ipratropium [place] (Atrovent Hfa) 4 puff Q2H RESP THERAPY PRN INH SHORTNESS OF BREATH; Start 08/20/18 at 22:00 Acetaminophen (Tylenol Liquid) 650 mg Q6H PRN PO PAIN LEVEL 1-3 OR FEVER Last administered on 09/01/18at 21:34; Admin Dose 650 MG; Start 08/20/18 at 22:00 Miscellaneous Information 1 ea NOTE XX ; Start 08/21/18 at 16:30 Glucose (Glutose) 15 gm Q15M PRN PO DECREASED GLUCOSE; Start 08/21/18 at 16:30 Glucose (Glutose) 22.5 gm Q15M PRN PO DECREASED GLUCOSE; Start 08/21/18 at 16: 30 Dextrose (D50w Syringe) 25 ml Q15M PRN IV DECREASED GLUCOSE; Start 08/21/18 at 16:30 Dextrose (D50w Syringe) 50 ml Q15M PRN IV DECREASED GLUCOSE; Start 08/21/18 at 16:30 Glucagon (Glucagen) 1 mg Q15M PRN IM DECREASED GLUCOSE; Start 08/21/18 at 16:30 Glucose (Glutose) 15 gm Q15M PRN BUCCAL DECREASED GLUCOSE; Start 08/21/18 at 16:30 Metoprolol Tartrate (Lopressor) 25 mg BID PO Last administered on 08/31/18at 21:09; Admin Dose 25 MG; Start 08/23/18 at 21:00 Epinephrine (Racepinephrine 2.25% (Neb)) 0.25 ml Q3H RESP THERAPY PRN HHN STRIDOR; Start 08/23/18 at 17:00 Ondansetron HCl (Zofran Inj) 4 mg Q6H PRN IV NAUSEA AND/OR VOMITING Last administered on 08/25/18 21:47; Admin Dose 4 MG; Start 08/25/18 at 21:30 Diagnostic Test (Pha) (Accu-Chek) XX ; Start 08/27/18 at 02:00 Vancomycin HCl (Vanco Iv Per Pharmacy) VANCOMYCIN PER PHARMACY PER PROTOCOL XX ; Start 08/27/18 at 11:30 Heparin Sodium (Porcine) (Heparin (5000 Units/1ml)) 5,000 unit Q8 SC Last administered on 09/01/18 14:27; Admin Dose 5,000 UNIT; Start 08/29/18 at 14:00; Status Hold Epoetin Isacc (Epogen (Non Esrd/Non Oncology)) 10,000 units MoWeFr@17 SC Last administered on 08/31/18 17:50; Admin Dose 10,000 UNITS; Start 08/29/18 at 17:00 Albumin Human 50 ml @ 100 mls/hr DURING DIALYSIS PRN IV During HD. Last administered on 08/29/18 13:55; Admin Dose 100 MLS/HR; Start 08/29/18 at 12:30 Aspirin (Aspirin) 81 mg DAILY PO Last administered on 09/01/18 08:40; Admin Dose 81 MG; Start 08/30/18 at 09:00 Calcium Acetate (Phoslo) 1,334 mg WITH MEALS GTB Last administered on 09/01/18 18:15; Admin Dose 1,334 MG; Start 08/31/18 at 12:00 Albumin Human 100 ml @ 100 mls/hr WITH DIALYSIS IV Last administered on 09/01/18 11:59; Admin Dose 100 MLS/HR; Start 09/01/18 at 10:30 Heparin Sodium (Porcine) (Heparin (1000 Units/ml)) 3,000 unit AFTER DIALYSIS CATHETER Last administered on 09/01/18 13:01; Admin Dose 3,000 UNIT; Start 09/01/18 at 12:30 Sucralfate (Carafate Susp) 1 gm QID PO Last administered on 12/27/18at 21:33; Admin Dose 1 GM; Start 09/01/18 at 16:00 Pantoprazole (Protonix Iv) 40 mg BID@ IV Last administered on 09/02/18at 06:20; Admin Dose 40 MG; Start 09/01/18 at 18:00 Insulin Aspart (Novolog Insulin Pen) (Adult SC Insulin - Mild Algorithm)... Q4 SC ; Start 09/02/18 at 09:00 Miscellaneous Information (*Rx Drug Level Order Reminder*) RANDOM VANCOMYCIN LEVEL ... ONCE ONCE XX ; Start 09/03/18 at 05:00; Stop 09/03/18 at 05:01 Kana Phoenix DO Sep 02, 2018 11:59
--- NOTE | 2018-09-02 14:58 | PN ---
Date/Time of Note Date/Time of Note DATE: 09/02/18 TIME: 14:55 Assessment/Plan VTE Prophylaxis Risk score (from Ns)>0 risk: 2 SCD applied (from Ns): No SCD contraindicated: other (no) Pharmacological prophylaxis: heparin Lines/Catheters IV C[facility]ter Type (from [facility] Peripheral IV Urinary Cath still in place: Yes Reason Cath still needed: other (indicate) (renal failure) Assessment/Plan Assessment/Plan 33 yo man brought in found down with subsequent JULIAN secondary to rhabdomyolysis; positive for alcohol, methamphetamine, cannabis, opioids as well. #Melena - Nurse reports maroon colored stool on 09/01 - GI consulted, plan for EGD. - PPI BID and carafate - Not associated with significant drop in Hgb. # Renal failure- Oliguric renal failure with hyperkalemia (after potassium replacement), also presented with severe metabolic acidosis - Likely due to a combination of rhabdo and drug use. CK level still slightly elevated, but trending down now the last few days - Continue dialysis per renal recommendations #Encephalopathy - Despite extubation on 08/24, he remains very lethargic and profoundly weak. - Head CT 08/20 negative - Repeat CT on 08/31 shows some edema of the basal ganglia, confirmed on MRI, this likely represents residual toxic metabolic effect. - TSH, ammonia, AM cortisol are normal. #Bacteremia - Had fever on 08/27. - Blood culture (x1 unfortunately) from that day is growing coag negative staph, a common contaminant - Currently on vanco - D/Matias right IJ. But his femoral dialysis catheter may also be a source of infection. - ID is following # acute ventilatory dependent respiratory failure - extubated 08/24, was likely secondary to polysubstance overdose resulting in multiorgan dysfunction; patient had subsequent severe metabolic acidosis with inadequate respiratory compensation-now oxygen levels stable on nasal cannula supplementation -For now continue zosyn for possible community-acquired pneumonia-white blood cell count still elevated, follow-up CBC daily. - Now on minimal nasal cannula. # Elevated troponin-now appears stable- CV consulted earlier this admission. Likely demand ischemia from drug use. - Will not treat per NSTEMI protocol, monitor, follow-up cardiology recommendations # transaminitis: - May be from shock liver or drug use.- Hep B, Hep C negative. LFTs have been slowly trending down over the last 3-4 days -Continue to monitor LFTs # Rhabdomyolysis: -See above secondary to patient found down as well as polysubstance abuse - again now requiring dialysis. Again CK levels still overall slightly elevated, but trending down the last 4-5 days -Monitor CK levels # Coagulopathy- May be due to liver and renal injury as well as drug use- No DIC - Will watch closely, monitor CBC, follow-up hematology oncology recommendation # polysubstance abuse - Again patient was found to be positive for opioids, methamphetamine, marijuana and an elevated blood alcohol level. -Earlier this admission ordered for thiamine 300 mg IM daily times 3 days, f urther treatment as per the clinical course # DVT and GI prophylaxis: Protonix twice daily Result Diagram: 09/02/18 0559 09/02/18 0559 Results 24hrs Laboratory Tests Test 09/01/18 18:12 09/01/18 21:41 09/02/18 05:59 09/02/18 08:30 Bedside Glucose 166 114 103 White Blood 14.1 H Count Red Blood Count 2.59 L Hemoglobin 8.4 L Hematocrit 24.7 L Mean Corpuscular 95.4 Volume Mean Corpuscular 32.4 Hemoglobin Mean Corpuscular 34.0 Hemoglobin Monica nt Red Cell 13.5 Distribution Width Platelet Count 456 H Mean Platelet 11.2 H Volume Immature 2.000 H Granulocytes % Neutrophils % 78.4 H Lymphocytes % 7.3 L Monocytes % 8.4 Eosinophils % 3.6 Basophils % 0.3 Nucleated Red 0.0 Blood Cells % Immature 0.280 H Granulocytes # Neutrophils # 11.1 H Lymphocytes # 1.0 Monocytes # 1.2 H Eosinophils # 0.5 Basophils # 0.0 Nucleated Red 0.0 Blood Cells # Prothrombin Time 14.8 Prothrombin Time 1.2 Ratio INR 1.14 International Normalized Ratio Sodium Level 134 L Potassium Level 4.9 Chloride Level 95 L Carbon Dioxide 28 Level Anion Gap 11 Blood Urea 62 H Nitrogen Creatinine 6.88 H Est Glomerular 9 L Filtrat Rate mL/min Glucose Level 108 Calcium Level 8.5 Phosphorus Level 7.8 #H Magnesium Level 2.5 Troponin I < 0.012 Test 09/02/18 12:54 Bedside Glucose 111 Subjective 24 Hr Interval Summary Free Text/Dictation According to nurse, patient had maroon-colored stool yesterday afternoon. On exam patient is much more somnolent, minimally responsive today. Exam/Review of Systems Vital Signs Vitals Vital Signs Date Temp Pulse Resp B/P (MAP) Pulse Ox O2 O2 Flow FiO2 Time Delivery Rate 09/02/18 98.8 86 18 124/65 100 Room Air 14:15 (84) 09/02/18 3.0 09:00 Intake and Output 09/01/18 09/01/18 09/02/18 1515:00 23:00 07:00 IntakeIntake Total 1870 ml 980 ml OutputOutput Total 3120 ml 150 ml 101 ml BalanceBalance -1250 ml 830 ml -101 ml Exam Gen: Lying in bed, no acute distress, nasal cannula in place. Eyes: Pupils equal round reactive to light, extraocular muscles intact HEENT: moist mucous membranes, Card: Regular rate and rhythm no murmurs Pulm: Clear breath sounds bilaterally, no crackles. Abd: Soft, nondistended. Ext: Bilateral upper arms with 2+ nonpitting edema. Neuro: Somnolent, minimally responsive. Medications Medications Current Medications Albuterol (Ventolin Hfa) 4 puff Q2H RESP THERAPY PRN INH SHORTNESS OF BREATH; Start 08/20/18 at 22:00 Ipratropium [place] (Atrovent Hfa) 4 puff Q2H RESP THERAPY PRN INH SHORTNESS OF BREATH; Start 08/20/18 at 22:00 Acetaminophen (Tylenol Liquid) 650 mg Q6H PRN PO PAIN LEVEL 1-3 OR FEVER Last administered on 09/01/18at 21:34; Admin Dose 650 MG; Start 08/20/18 at 22:00 Miscellaneous Information 1 ea NOTE XX ; Start 08/21/18 at 16:30 Glucose (Glutose) 15 gm Q15M PRN PO DECREASED GLUCOSE; Start 08/21/18 at 16:30 Glucose (Glutose) 22.5 gm Q15M PRN PO DECREASED GLUCOSE; Start 08/21/18 at 16:30 Dextrose (D50w Syringe) 25 ml Q15M PRN IV DECREASED GLUCOSE; Start 08/21/18 at 16:30 Dextrose (D50w Syringe) 50 ml Q15M PRN IV DECREASED GLUCOSE; Start 08/21/18 at 16:30 Glucagon (Glucagen) 1 mg Q15M PRN IM DECREASED GLUCOSE; Start 08/21/18 at 16:30 Glucose (Glutose) 15 gm Q15M PRN BUCCAL DECREASED GLUCOSE; Start 08/21/18 at 16:30 Metoprolol Tartrate (Lopressor) 25 mg BID PO Last administered on 08/31/18at 21:09; Admin Dose 25 MG; Start 08/23/18 at 21:00 Epinephrine (Racepinephrine 2.25% (Neb)) 0.25 ml Q3H RESP THERAPY PRN HHN STRIDOR; Start 08/23/18 at 17:00 Ondansetron HCl (Zofran Inj) 4 mg Q6H PRN IV NAUSEA AND/OR VOMITING Last administered on 08/25/18at 21:47; Admin Dose 4 MG; Start 08/25/18 at 21:30 Diagnostic Test (Pha) (Accu-Chek) XX ; Start 08/27/18 at 02:00 Vancomycin HCl (Vanco Iv Per Pharmacy) VANCOMYCIN PER PHARMACY PER PROTOCOL XX ; Start 08/27/18 at 11:30 Heparin Sodium (Porcine) (Heparin (5000 Units/1ml)) 5,000 unit Q8 SC Last administered on 09/01/18at 14:27; Admin Dose 5,000 UNIT; Start 08/29/18 at 14:00; Status Hold Epoetin Isacc (Epogen (Non Esrd/Non Oncology)) 10,000 units MoWeFr@17 SC Last administered on 08/31/18at 17:50; Admin Dose 10,000 UNITS; Start 08/29/18 at 17:00 Albumin Human 50 ml @ 100 mls/hr DURING DIALYSIS PRN IV During HD. Last administered on 08/29/18at 13:55; Admin Dose 100 MLS/HR; Start 08/29/18 at 12:30 Aspirin (Aspirin) 81 mg DAILY PO Last administered on 09/01/18at 08:40; Admin Dose 81 MG; Start 08/30/18 at 09:00 Calcium Acetate (Phoslo) 1,334 mg WITH MEALS GTB Last administered on 09/01/18at 18:15; Admin Dose 1,334 MG; Start 08/31/18 at 12:00 Albumin Human 100 ml @ 100 mls/hr WITH DIALYSIS IV Last administered on 09/01/18at 11:59; Admin Dose 100 MLS/HR; Start 09/01/18 at 10:30 Heparin Sodium (Porcine) (Heparin (1000 Units/ml)) 3,000 unit AFTER DIALYSIS CATHETER Last administered on 09/01/18at 13:01; Admin Dose 3,000 UNIT; Start 09/01/18 at 12:30 Sucralfate (Carafate Susp) 1 gm QID PO Last administered on 09/01/18at 21:33; Admin Dose 1 GM; Start 09/01/18 at 16:00 Pantoprazole (Protonix Iv) 40 mg BID@ IV Last administered on 09/02/18at 06:20; Admin Dose 40 MG; Start 09/01/18 at 18:00 Insulin Aspart (Novolog Insulin Pen) (Adult SC Insulin - Mild Algorithm)... Q4 SC ; Start 09/02/18 at 09:00 Miscellaneous Information (*Rx Drug Level Order Reminder*) RANDOM VANCOMYCIN LEVEL ... ONCE ONCE XX ; Start 09/03/18 at 05:00; Stop 09/03/18 at 05:01 YUMIKO JC MD Sep 02, 2018 14:58
[2018-09-02] MEDS ORDERED: FENTAnyl 50 MCG/ML VIAL IV PRN (15:00)
[2018-09-02] MEDS ORDERED: PROPOFOL 20 ML ONE ×3 (15:01→15:12)
[2018-09-02] MEDS: ACETAMINOPHEN 650MG/20.3ML CUP PO PRN (17:26)
[2018-09-02] MEDS: EPOETIN 10000 UNITS/ML (NON ESRD/NON ONCOLOGY) SC SCH (17:27)
--- NOTE | 2018-09-02 20:25 | CONS ---
Assessment/Plan Assessment/Plan Hospital Course A: 33 yo M with uncertain PMH who presents for evaluation of altered mental status UDS + for amphetamines, opioids, EtOH, cannabis Of note, he was reported to be severely hypoglycemic in the field. JULIAN+ Clinically consistent with an acute and multifactorial toxic-metabolic encephalopathy. Stroke is unlikely. Seizure is unlikely. CTH (08/20) was unrevealing. Repeat CTH was most notable for bilateral globus pallidus edema MRI is notable for sequelae of a toxic-metabolic insult.. P: Cont medical management per primary Reorient as necessary Limit sedating medications where possible PT/OT as tolerated Will follow clinically Result Diagram: 09/02/18 0559 09/02/18 0559 Results 24hrs Laboratory Tests Test 09/01/18 21:41 09/02/18 05:59 09/02/18 08:30 09/02/18 12:54 Bedside Glucose 114 103 111 White Blood 14.1 H Count Red Blood Count 2.59 L Hemoglobin 8.4 L Hematocrit 24.7 L Mean Corpuscular 95.4 Volume Mean Corpuscular 32.4 Hemoglobin Mean Corpuscular 34.0 Hemoglobin Monica nt Red Cell 13.5 Distribution Width Platelet Count 456 H Mean Platelet 11.2 H Volume Immature 2.000 H Granulocytes % Neutrophils % 78.4 H Lymphocytes % 7.3 L Monocytes % 8.4 Eosinophils % 3.6 Basophils % 0.3 Nucleated Red 0.0 Blood Cells % Immature 0.280 H Granulocytes # Neutrophils # 11.1 H Lymphocytes # 1.0 Monocytes # 1.2 H Eosinophils # 0.5 Basophils # 0.0 Nucleated Red 0.0 Blood Cells # Prothrombin Time 14.8 Prothrombin Time 1.2 Ratio INR 1.14 International Normalized Ratio Sodium Level 134 L Potassium Level 4.9 Chloride Level 95 L Carbon Dioxide 28 Level Anion Gap 11 Blood Urea 62 H Nitrogen Creatinine 6.88 H Est Glomerular 9 L Filtrat Rate mL/min Glucose Level 108 Calcium Level 8.5 Phosphorus Level 7.8 #H Magnesium Level 2.5 Troponin I < 0.012 Test 09/02/18 17:24 Bedside Glucose 109 Consultation Date/Type/Reason Admit Date/Time Aug 20, 2018 at 21:39 Type of Consult Neurology Reason for Consultation lethargy/weakness Requesting Provider: YUMIKO JC MD Date/Time of Note DATE: 09/02/18 TIME: 15:37 24 HR Interval Summary Free Text/Dictation Continues medsurg monitoring. S/p EGD. No acute events reported at this time. Exam Vital Signs Vitals Vital Signs Date Temp Pulse Resp B/P (MAP) Pulse Ox O2 O2 Flow FiO2 Time Delivery Rate 09/02/18 98.3 95 20 118/64 100 20:01 (82) 09/02/18 Nasal 15:57 Cannula 09/02/18 2.0 15:45 Intake and Output 09/01/18 09/01/18 09/02/18 1515:00 23:00 07:00 IntakeIntake Total 1870 ml 980 ml OutputOutput Total 3120 ml 150 ml 101 ml BalanceBalance -1250 ml 830 ml -101 ml Exam PE: Gen Appearance: No Apparent Distress HEENT: Normocephalic Cardiovascular: Regular rate Lungs: Clear bilaterally Abdomen: Soft Extremities: Dry NE: The patient was lethargic and arousable to loud voice; sparsely verbal. Somewhat disoriented. Language was normal but forced. Fund of knowledge was adequate. Cranial nerve exam was limited by mental status. Pupils were equal and reactive to light. Funduscopic examination was limited. Face was symmetric with normal strength. Hearing was intact. Tone was normal. Muscle bulk was normal. I did not see fasciculations. Arms were moderately weak in the UE (R>L) and severely weak in the LE. Vibration sensation was normal. Temperature and pinprick sensation was normal. Coordination was limited d/t mental status. Gait was deferred due to bedrest. Arm and leg reflexes were symmetric. Phillips's sign was absent. Plantar responses were flexor. TIN GUIDO NP Sep 02, 2018 20:25 GEOVANNI BANKS Sep 02, 2018 21:22
[2018-09-03] VITALS (17 sets, daily range): BP systolic 113–136; BP diastolic 63–79; PULSE 81–98; RESP 18–24
[2018-09-03] MEDS: Insulin NOVOLOG SS MILD Algorithm (NPO/TPN/ENTERAL FEEDS) SC SCH ×2 (01:00→05:00)
[2018-09-03] MEDS: ACCU-CHEK XX SCH (02:00)
[2018-09-03] MEDS: PANTOPRAZOLE 40 MG INJ IV SCH ×2 (05:59→17:29)
[2018-09-03] MEDS: INSULIN ASPART [NOVOLOG] 3 ML PEN SC SCH ×4 (07:00→20:59)
[2018-09-03] MEDS: CALCIUM ACETATE 667 MG CAP GTB SCH ×3 (08:36→17:29)
[2018-09-03] MEDS: SUCRALFATE (100 MG/ML) 10ML CUP PO SCH ×4 (08:36→20:53)
[2018-09-03] MEDS: METOPROLOL 25 MG TAB PO SCH ×3 (08:37→20:54)
[2018-09-03] MEDS: ASPIRIN 81 MG TAB PO SCH (08:37)
[2018-09-03] MEDS: HEPARIN 1000 UNITS/ML 10 ML INJ CATHETER SCH (12:28)
--- NOTE | 2018-09-03 13:08 | CONS ---
Date/Time of Note Date/Time of Note DATE: 09/03/18 TIME: 13:04 Assessment/Plan Assessment/Plan Assessment/Plan # JULIAN Due to rhabdomyolysis/ATN Some urine output yesterday Remains dialysis dependent HD today # Encephalopathy Neurology evaluation noted Metabolic encephalopathy # Anemia Hb stable # Respiratory failure Resolved # Drug abuse Result Diagram: 09/03/18 0428 09/03/18 0428 Results 24hrs Laboratory Tests Test 09/02/18 17:24 09/02/18 21:09 09/03/18 04:28 09/03/18 08:35 Bedside Glucose 109 112 102 White Blood 14.6 H Count Red Blood Count 2.51 L Hemoglobin 8.1 L Hematocrit 24.0 L Mean Corpuscular 95.6 Volume Mean Corpuscular 32.3 Hemoglobin Mean Corpuscular 33.8 Hemoglobin Monica nt Red Cell 13.2 Distribution Width Platelet Count 483 H Mean Platelet 10.8 H Volume Immature 1.600 H Granulocytes % Neutrophils % 79.8 H Lymphocytes % 6.6 L Monocytes % 8.6 Eosinophils % 3.0 Basophils % 0.4 Nucleated Red 0.0 Blood Cells % Immature 0.240 H Granulocytes # Neutrophils # 11.7 H Lymphocytes # 1.0 Monocytes # 1.3 H Eosinophils # 0.4 Basophils # 0.1 Nucleated Red 0.0 Blood Cells # Sodium Level 135 Potassium Level 5.7 H Chloride Level 95 L Carbon Dioxide 25 Level Anion Gap 15 H Blood Urea 79 H Nitrogen Creatinine 8.70 H Est Glomerular 7 L Filtrat Rate mL/min Glucose Level 112 Calcium Level 8.6 Phosphorus Level 10.7 #H Random 12.3 Vancomycin Level Test 09/03/18 12:30 Bedside Glucose 112 Consultation Date/Type/Reason Admit Date/Time Aug 20, 2018 at 21:39 Initial Consult Date 09/01/18 Type of Consult Nephrology Requesting Provider: YUMIKO JC MD 24 HR Interval Summary Free Text/Dictation Seen on dialysis. Lethargic, answering simple questions. Exam/Review of Systems Vital Signs Vitals Vital Signs Date Temp Pulse Resp B/P (MAP) Pulse Ox O2 O2 Flow FiO2 Time Delivery Rate 09/03/18 Nasal 3.0 07:43 Cannula 09/03/18 99.7 92 24 119/69 100 07:33 (86) Intake and Output 09/02/18 09/02/18 09/03/18 1515:00 23:00 07:00 IntakeIntake Total 240 ml 600 ml OutputOutput Total 100 ml 250 ml BalanceBalance 140 ml 350 ml Exam Neck: supple; No jvd Respiratory: clear to auscultation Cardiovascular: regular rate and rhythm Gastrointestinal: soft, non-tender Extremities: No edema Medications Medications Current Medications Albuterol (Ventolin Hfa) 4 puff Q2H RESP THERAPY PRN INH SHORTNESS OF BREATH; Start 08/20/18 at 22:00 Ipratropium [place] (Atrovent Hfa) 4 puff Q2H RESP THERAPY PRN INH SHORTNESS OF BREATH; Start 08/20/18 at 22:00 Acetaminophen (Tylenol Liquid) 650 mg Q6H PRN PO PAIN LEVEL 1-3 OR FEVER Last administered on 09/02/18at 17:26; Admin Dose 650 MG; Start 08/20/18 at 22:00 Miscellaneous Information 1 ea NOTE XX ; Start 08/21/18 at 16:30 Glucose (Glutose) 15 gm Q15M PRN PO DECREASED GLUCOSE; Start 08/21/18 at 16:30 Glucose (Glutose) 22.5 gm Q15M PRN PO DECREASED GLUCOSE; Start 08/21/18 at 16:30 Dextrose (D50w Syringe) 25 ml Q15M PRN IV DECREASED GLUCOSE; Start 08/21/18 at 16:30 Dextrose (D50w Syringe) 50 ml Q15M PRN IV DECREASED GLUCOSE; Start 08/21/18 at 16:30 Glucagon (Glucagen) 1 mg Q15M PRN IM DECREASED GLUCOSE; Start 08/21/18 at 16:30 Glucose (Glutose) 15 gm Q15M PRN BUCCAL DECREASED GLUCOSE; Start 08/21/18 at 16:30 Metoprolol Tartrate (Lopressor) 25 mg BID PO Last administered on 09/02/18at 21:10; Admin Dose 25 MG; Start 08/23/18 at 21:00 Epinephrine (Racepinephrine 2.25% (Neb)) 0.25 ml Q3H RESP THERAPY PRN HHN STRIDOR; Start 08/23/18 at 17:00 Ondansetron HCl (Zofran Inj) 4 mg Q6H PRN IV NAUSEA AND/OR VOMITING Last administered on 08/25/18at 21:47; Admin Dose 4 MG; Start 08/25/18 at 21:30 Diagnostic Test (Pha) (Accu-Chek) XX ; Start 08/27/18 at 02:00 Vancomycin HCl (Vanco Iv Per Pharmacy) VANCOMYCIN PER PHARMACY PER PROTOCOL XX ; Start 08/27/18 at 11:30 Heparin Sodium (Porcine) (Heparin (5000 Units/1ml)) 5,000 unit Q8 SC Last administered on 09/01/18 14:27; Admin Dose 5,000 UNIT; Start 08/29/18 at 14:00; Status Hold Epoetin Isacc (Epogen (Non Esrd/Non Oncology)) 10,000 units MoWeFr@17 SC Last administered on 09/02/18 17:27; Admin Dose 10,000 UNITS; Start 08/29/18 at 17:00 Albumin Human 50 ml @ 100 mls/hr DURING DIALYSIS PRN IV During HD. Last administered on 08/29/18 13:55; Admin Dose 100 MLS/HR; Start 08/29/18 at 12:30 Aspirin (Aspirin) 81 mg DAILY PO Last administered on 09/03/18at 08:37; Admin Dose 81 MG; Start 08/30/18 at 09:00 Calcium Acetate (Phoslo) 1,334 mg WITH MEALS GTB Last administered on 09/03/18 08:36; Admin Dose 1,334 MG; Start 08/31/18 at 12:00 Albumin Human 100 ml @ 100 mls/hr WITH DIALYSIS IV Last administered on 09/01/18at 11:59; Admin Dose 100 MLS/HR; Start 09/01/18 at 10:30 Heparin Sodium (Porcine) (Heparin (1000 Units/ml)) 3,000 unit AFTER DIALYSIS CATHETER Last administered on 09/03/18at 12:28; Admin Dose 3,000 UNIT; Start 09/01/18 at 12:30 Sucralfate (Carafate Susp) 1 gm QID PO Last administered on 09/03/18at 08:36; Admin Dose 1 GM; Start 09/01/18 at 16:00 Pantoprazole (Protonix Iv) 40 mg BID@06,18 IV Last administered on 09/03/18 05:59; Admin Dose 40 MG; Start 09/01/18 at 18:00 Insulin Aspart (Novolog Insulin Pen) (Adult SC Insulin - Mild Algorithm)... AC MEALS AND BEDTIME SC ; Start 09/03/18 at 07:00 Vancomycin HCl 250 ml @ 125 mls/hr ONCE ONCE IVPB ; Start 09/03/18 at 20:00; Stop 09/03/18 at 21:59 JOY PEREZ MD Sep 03, 2018 13:07
--- NOTE | 2018-09-03 13:21 | CONS ---
Assessment/Plan Assessment/Plan Hospital Course A: 33 yo M with uncertain PMH who presents for evaluation of altered mental status UDS + for amphetamines, opioids, EtOH, cannabis Of note, he was reported to be severely hypoglycemic in the field. JULIAN+ Clinically consistent with an acute and multifactorial toxic-metabolic encephalopathy. Stroke is unlikely. Seizure is unlikely. CTH (08/20) was unrevealing. Repeat CTH was most notable for bilateral globus pallidus edema MRI is notable for sequelae of a toxic-metabolic insult.. P: Cont medical management per primary Reorient as necessary Limit sedating medications where possible PT/OT as tolerated Will follow clinically Result Diagram: 09/03/18 0428 09/03/18 0428 Results 24hrs Laboratory Tests Test 09/02/18 17:24 09/02/18 21:09 09/03/18 04:28 09/03/18 08:35 Bedside Glucose 109 112 102 White Blood 14.6 H Count Red Blood Count 2.51 L Hemoglobin 8.1 L Hematocrit 24.0 L Mean Corpuscular 95.6 Volume Mean Corpuscular 32.3 Hemoglobin Mean Corpuscular 33.8 Hemoglobin Monica nt Red Cell 13.2 Distribution Width Platelet Count 483 H Mean Platelet 10.8 H Volume Immature 1.600 H Granulocytes % Neutrophils % 79.8 H Lymphocytes % 6.6 L Monocytes % 8.6 Eosinophils % 3.0 Basophils % 0.4 Nucleated Red 0.0 Blood Cells % Immature 0.240 H Granulocytes # Neutrophils # 11.7 H Lymphocytes # 1.0 Monocytes # 1.3 H Eosinophils # 0.4 Basophils # 0.1 Nucleated Red 0.0 Blood Cells # Sodium Level 135 Potassium Level 5.7 H Chloride Level 95 L Carbon Dioxide 25 Level Anion Gap 15 H Blood Urea 79 H Nitrogen Creatinine 8.70 H Est Glomerular 7 L Filtrat Rate mL/min Glucose Level 112 Calcium Level 8.6 Phosphorus Level 10.7 #H Random 12.3 Vancomycin Level Test 09/03/18 12:30 Bedside Glucose 112 Consultation Date/Type/Reason Admit Date/Time Aug 20, 2018 at 21:39 Type of Consult Neurology Reason for Consultation lethargy/weakness Requesting Provider: YUMIKO JC MD Date/Time of Note DATE: 09/03/18 TIME: 13:21 24 HR Interval Summary Free Text/Dictation Continues medsurg monitoring. S/p HD. Pt reports that he still feels weak. Exam Vital Signs Vitals Vital Signs Date Temp Pulse Resp B/P (MAP) Pulse Ox O2 O2 Flow FiO2 Time Delivery Rate 09/03/18 Nasal 3.0 07:43 Cannula 09/03/18 99.7 92 24 119/69 100 07:33 (86) Intake and Output 09/02/18 09/02/18 09/03/18 1515:00 23:00 07:00 IntakeIntake Total 240 ml 600 ml OutputOutput Total 100 ml 250 ml BalanceBalance 140 ml 350 ml Exam PE: Gen Appearance: No Apparent Distress HEENT: Normocephalic Cardiovascular: Regular rate Lungs: Clear bilaterally Abdomen: Soft Extremities: Dry NE: The patient was awake and alert. Somewhat disoriented. Language was normal but forced. Fund of knowledge was adequate. Cranial nerve exam was limited by pt participation. Pupils were equal and reactive to light. No afferent pupillary defect noted. EOMi. Funduscopic examination was limited. Face was symmetric with normal strength. Hearing was intact. Tone was normal. Muscle bulk was normal. I did not see fasciculations. Arms and legs were severely weak. Vibration sensation was normal. Temperature and pinprick sensation was normal. Coordination was limited d/t mental status. Gait was deferred due to bedrest. Arm and leg reflexes were symmetric. Phillips's sign was absent. Plantar responses were flexor. TIN GUIDO NP Sep 03, 2018 13:21 GEOVANNI BANKS Sep 04, 2018 07:03
--- NOTE | 2018-09-03 13:34 | PN ---
Date/Time of Note Date/Time of Note DATE: 09/03/18 TIME: 13:27 Assessment/Plan VTE Prophylaxis Risk score (from Nsg)>0 risk: 4 SCD applied (from Nsg): Yes Pharmacological prophylaxis: other (scds) Lines/Catheters IV Catheter Type (from Nrsg): Peripheral IV Urinary Cath still in place: Yes Reason Cath still needed: other (indicate) (monitor output) Assessment/Plan Hospital Course Summary Assessment and Plan: Assessment: Melena/normocytic anemia EGD 09/02/18 Gastroesophageal reflux disease with mild distal esophagitis Mild acute gastritis without bleeding Biopsies obtained to rule out H. pylori Otherwise normal EGD Bacteremia Acute ventilatory dependent respiratory failure - Extubated s/p 08/24, Acute encephalopathy Elevated troponin-now appears stable- Likely demand ischemia from drug use. Coagulopathy Transaminitis -May be from shock liver or drug use. - Hep B, Hep C negative. -Continue to monitor LFTs Rhabdomyolysis Polysubstance abuse Plan: Await bx results Continue PPI Continue current regimen Patient seen in collaboration with Dr. Ordoñez/Cathie Subjective: Course reviewed with nursing staff Patient interviewed and examined All labs, imaging and other results reviewed The patient more awake today, tolerating pureed diet with assist well, currently receiving HD No c/o n/v or abd pain. HGB stable PHYSICAL EXAMINATION: GENERAL: Alert & oriented to name, place, and year, speaks slowly, confused SKIN: No lesions EYES: Pupils equal reactive to light, no discharge. EARS/NOSE AND THROAT: Ears normal, nose normal, oropharynx normal. NECK: Supple, no masses CHEST: Inspection within normal limits. CARDIOVASCULAR: Heart: Regular rate and rhythm RESPIRATORY: Lungs clear to auscultation GASTROINTESTINAL AND LIVER: Abdomen: Soft, non tenderness, non-distended, no hernias, no masses, no organomegaly, no ascites, no guarding, no rebound tenderness, normoactive bowel sounds. Rectal: Deferred. EXT: edema to BLUE/BLE : scrotal swelling, f/u in place with hematuria Result Diagram: 09/03/188 09/03/188 Results 24hrs Laboratory Tests Test 09/02/18 17:24 09/02/18 21:09 09/03/18 04:28 09/03/18 08:35 Bedside Glucose 109 112 102 White Blood 14.6 H Count Red Blood Count 2.51 L Hemoglobin 8.1 L Hematocrit 24.0 L Mean Corpuscular 95.6 Volume Mean Corpuscular 32.3 Hemoglobin Mean Corpuscular 33.8 Hemoglobin Monica nt Red Cell 13.2 Distribution Width Platelet Count 483 H Mean Platelet 10.8 H Volume Immature 1.600 H Granulocytes % Neutrophils % 79.8 H Lymphocytes % 6.6 L Monocytes % 8.6 Eosinophils % 3.0 Basophils % 0.4 Nucleated Red 0.0 Blood Cells % Immature 0.240 H Granulocytes # Neutrophils # 11.7 H Lymphocytes # 1.0 Monocytes # 1.3 H Eosinophils # 0.4 Basophils # 0.1 Nucleated Red 0.0 Blood Cells # Sodium Level 135 Potassium Level 5.7 H Chloride Level 95 L Carbon Dioxide 25 Level Anion Gap 15 H Blood Urea 79 H Nitrogen Creatinine 8.70 H Est Glomerular 7 L Filtrat Rate mL/min Glucose Level 112 Calcium Level 8.6 Phosphorus Level 10.7 #H Random 12.3 Vancomycin Level Test 09/03/18 12:30 Bedside Glucose 112 Exam/Review of Systems Vital Signs Vitals Vital Signs Date Temp Pulse Resp B/P (MAP) Pulse Ox O2 O2 Flow FiO2 Time Delivery Rate 09/03/18 Nasal 3.0 07:43 Cannula 09/03/18 99.7 92 24 119/69 100 07:33 (86) Intake and Output 09/02/18 09/02/18 09/03/18 1515:00 23:00 07:00 IntakeIntake Total 240 ml 600 ml OutputOutput Total 100 ml 250 ml BalanceBalance 140 ml 350 ml Medications Medications Current Medications Albuterol (Ventolin Hfa) 4 puff Q2H RESP THERAPY PRN INH SHORTNESS OF BREATH; Start 08/20/18 at 22:00 Ipratropium [place] (Atrovent Hfa) 4 puff Q2H RESP THERAPY PRN INH SHORTNESS OF BREATH; Start 08/20/18 at 22:00 Acetaminophen (Tylenol Liquid) 650 mg Q6H PRN PO PAIN LEVEL 1-3 OR FEVER Last administered on 09/02/18at 17:26; Admin Dose 650 MG; Start 08/20/18 at 22:00 Miscellaneous Information 1 ea NOTE XX ; Start 08/21/18 at 16:30 Glucose (Glutose) 15 gm Q15M PRN PO DECREASED GLUCOSE; Start 08/21/18 at 16:30 Glucose (Glutose) 22.5 gm Q15M PRN PO DECREASED GLUCOSE; Start 08/21/18 at 16:30 Dextrose (D50w Syringe) 25 ml Q15M PRN IV DECREASED GLUCOSE; Start 08/21/18 at 16:30 Dextrose (D50w Syringe) 50 ml Q15M PRN IV DECREASED GLUCOSE; Start 08/21/18 at 16:30 Glucagon (Glucagen) 1 mg Q15M PRN IM DECREASED GLUCOSE; Start 08/21/18 at 16:30 Glucose (Glutose) 15 gm Q15M PRN BUCCAL DECREASED GLUCOSE; Start 08/21/18 at 16:30 Metoprolol Tartrate (Lopressor) 25 mg BID PO Last administered on 09/02/18at 21:10; Admin Dose 25 MG; Start 08/23/18 at 21:00 Epinephrine (Racepinephrine 2.25% (Neb)) 0.25 ml Q3H RESP THERAPY PRN HHN STRIDOR; Start 08/23/18 at 17:00 Ondansetron HCl (Zofran Inj) 4 mg Q6H PRN IV NAUSEA AND/OR VOMITING Last administered on 08/25/18at 21:47; Admin Dose 4 MG; Start 08/25/18 at 21:30 Diagnostic Test (Pha) (Accu-Chek) 1 XX ; Start 08/27/18 at 02:00 Vancomycin HCl (Vanco Iv Per Pharmacy) VANCOMYCIN PER PHARMACY PER PROTOCOL XX ; Start 08/27/18 at 11:30 Heparin Sodium (Porcine) (Heparin (5000 Units/1ml)) 5,000 unit Q8 SC Last ad ministered on 09/01/18at 14:27; Admin Dose 5,000 UNIT; Start 08/29/18 at 14:00; Status Hold Epoetin Isacc (Epogen (Non Esrd/Non Oncology)) 10,000 units MoWeFr@17 SC Last administered on 09/02/18at 17:27; Admin Dose 10,000 UNITS; Start 08/29/18 at 17:00 Albumin Human 50 ml @ 100 mls/hr DURING DIALYSIS PRN IV During HD. Last administered on 08/29/18at 13:55; Admin Dose 100 MLS/HR; Start 08/29/18 at 12:30 Aspirin (Aspirin) 81 mg DAILY PO Last administered on 09/03/18 08:37; Admin Dose 81 MG; Start 08/30/18 at 09:00 Calcium Acetate (Phoslo) 1,334 mg WITH MEALS GTB Last administered on 08:36; Admin Dose 1,334 MG; Start 08/31/18 at 12:00 Albumin Human 100 ml @ 100 mls/hr WITH DIALYSIS IV Last administered on 09/01/18at 11:59; Admin Dose 100 MLS/HR; Start 09/01/18 at 10:30 Heparin Sodium (Porcine) (Heparin (1000 Units/ml)) 3,000 unit AFTER DIALYSIS CATHETER Last administered on 09/03/18 12:28; Admin Dose 3,000 UNIT; Start 09/01/18 at 12:30 Sucralfate (Carafate Susp) 1 gm QID PO Last administered on 09/03/18at 08:36; Admin Dose 1 GM; Start 09/01/18 at 16:00 Pantoprazole (Protonix Iv) 40 mg BID@06,18 IV Last administered on 09/03/18at 05:59; Admin Dose 40 MG; Start 09/01/18 at 18:00 Insulin Aspart (Novolog Insulin Pen) (Adult SC Insulin - Mild Algorithm)... AC MEALS AND BEDTIME SC ; Start 09/03/18 at 07:00 Vancomycin HCl 250 ml @ 125 mls/hr ONCE ONCE IVPB ; Start 09/03/18 at 20:00; Stop 09/03/18 at 21:59 TOPHER BROWN Sep 03, 2018 13:34
--- NOTE | 2018-09-03 13:48 | PN ---
Date/Time of Note Date/Time of Note DATE: 09/03/18 TIME: 13:40 Assessment/Plan VTE Prophylaxis Risk score (from Ns)>0 risk: 4 SCD applied (from Ns): Yes Pharmacological prophylaxis: heparin Lines/Catheters IV Catheter Type (from [facility]): Peripheral IV Urinary Cath still in place: Yes Reason Cath still needed: urinary retention Assessment/Plan Assessment/Plan 33 yo man brought in found down with subsequent JULIAN secondary to rhabdomyolysis; positive for alcohol, methamphetamine, cannabis, opioids as well. #Melena - Nurse reported maroon colored stool on 09/01 - EGD 09/02 only with mild gastritis and distal esophagitis - PPI BID and carafate - Not associated with significant drop in Hgb. # Renal failure- Oliguric renal failure with hyperkalemia (after potassium replacement), also presented with severe metabolic acidosis - Likely due to a combination of rhabdo and drug use. CK level still slightly elevated, but trending down now the last few days - Continue dialysis per renal recommendations #Encephalopathy - Despite extubation on 08/24, he remains very lethargic and profoundly weak. - Head CT 08/20 negative - Repeat CT on 08/31 shows some edema of the basal ganglia, confirmed on MRI, this likely represents residual toxic metabolic effect. - TSH, ammonia, AM cortisol are normal. - Associated with proximal muscle weakness. #Bacteremia - Had fever on 08/27. - Blood culture (x1 unfortunately) from that day is growing coag negative staph, a common contaminant. Repeat blood culture negative. - Currently on vanco per ID - D/Matias right IJ. But his femoral dialysis catheter may also be a source of infection. # acute respiratory failure - extubated 08/24, was likely secondary to polysubstance overdose resulting in multiorgan dysfunction; patient had subsequent severe metabolic acidosis with inadequate respiratory compensation-now oxygen levels stable on nasal cannula supplementation -s/p course of zosyn for CAP. - Now on minimal nasal cannula. # Elevated troponin-now appears stable- CV consulted earlier this admission. Likely demand ischemia from drug use. - Will not treat per NSTEMI protocol, monitor, follow-up cardiology recommendations # transaminitis: - May be from shock liver or drug use.- Hep B, Hep C negative. LFTs have trended down. # Rhabdomyolysis: -See above secondary to patient found down as well as polysubstance abuse - now requiring dialysis. - CK levels now <1000 # Coagulopathy- May be due to liver and renal injury as well as drug use- No DIC - Will watch closely, monitor CBC, follow-up hematology oncology recommendation # polysubstance abuse - Again patient was found to be positive for opioids, methamphetamine, marijuana and an elevated blood alcohol level. -Earlier this admission ordered for thiamine 300 mg IM daily times 3 days, further treatment as per the clinical course # DVT and GI prophylaxis: Protonix twice daily Result Diagram: 09/03/18 0428 09/03/18 0428 Results 24hrs Laboratory Tests Test 09/02/18 17:24 09/02/18 21:09 09/03/18 04:28 09/03/18 08:35 Bedside Glucose 109 112 102 White Blood 14.6 H Count Red Blood Count 2.51 L Hemoglobin 8.1 L Hematocrit 24.0 L Mean Corpuscular 95.6 Volume Mean Corpuscular 32.3 Hemoglobin Mean Corpuscular 33.8 Hemoglobin Monica nt Red Cell 13.2 Distribution Width Platelet Count 483 H Mean Platelet 10.8 H Volume Immature 1.600 H Granulocytes % Neutrophils % 79.8 H Lymphocytes % 6.6 L Monocytes % 8.6 Eosinophils % 3.0 Basophils % 0.4 Nucleated Red 0.0 Blood Cells % Immature 0.240 H Granulocytes # Neutrophils # 11.7 H Lymphocytes # 1.0 Monocytes # 1.3 H Eosinophils # 0.4 Basophils # 0.1 Nucleated Red 0.0 Blood Cells # Sodium Level 135 Potassium Level 5.7 H Chloride Level 95 L Carbon Dioxide 25 Level Anion Gap 15 H Blood Urea 79 H Nitrogen Creatinine 8.70 H Est Glomerular 7 L Filtrat Rate mL/min Glucose Level 112 Calcium Level 8.6 Phosphorus Level 10.7 #H Random 12.3 Vancomycin Level Test 09/03/18 12:30 Bedside Glucose 112 Subjective 24 Hr Interval Summary Free Text/Dictation No acute overnight events. Patient getting dialysis today. Awake and alert but still very weak; barely moves his lips when speaking. According to dialysis nurse the patient ate 80% of his breakfast. But according to his nurse he didn't eat any breakfast and had difficulty swallowing oral meds. Exam/Review of Systems Vital Signs Vitals Vital Signs Date Temp Pulse Resp B/P (MAP) Pulse Ox O2 O2 Flow FiO2 Time Delivery Rate 09/03/18 88 20 128/77 13:00 (94) 09/03/18 Nasal 3.0 07:43 Cannula 09/03/18 99.7 100 07:33 Intake and Output 09/02/18 09/02/18 09/03/18 1515:00 23:00 07:00 IntakeIntake Total 240 ml 600 ml OutputOutput Total 100 ml 250 ml BalanceBalance 140 ml 350 ml Exam Gen: Lying in bed, no acute distress, nasal cannula in place. Eyes: Pupils equal round reactive to light, extraocular muscles intact HEENT: moist mucous membranes, Card: Regular rate and rhythm no murmurs Pulm: Clear breath sounds bilaterally, no crackles. Abd: Soft, nondistended. Ext: Bilateral upper arms with 2+ nonpitting edema. Neuro: Somnolent, minimally responsive. 2/5 of bilateral upper arms. 3/5 informatics nurse specialist strength bilaterally. Medications Medications Current Medications Albuterol (Ventolin Hfa) 4 puff Q2H RESP THERAPY PRN INH SHORTNESS OF BREATH; Start 08/20/18 at 22:00 Ipratropium [place] (Atrovent Hfa) 4 puff Q2H RESP THERAPY PRN INH SHORTNESS OF BREATH; Start 08/20/18 at 22:00 Acetaminophen (Tylenol Liquid) 650 mg Q6H PRN PO PAIN LEVEL 1-3 OR FEVER Last administered on 09/02/18at 17:26; Admin Dose 650 MG; Start 08/20/18 at 22:00 Miscellaneous Information 1 ea NOTE XX ; Start 08/21/18 at 16:30 Glucose (Glutose) 15 gm Q15M PRN PO DECREASED GLUCOSE; Start 08/21/18 at 16:30 Glucose (Glutose) 22.5 gm Q15M PRN PO DECREASED GLUCOSE; Start 08/21/18 at 16:30 Dextrose (D50w Syringe) 25 ml Q15M PRN IV DECREASED GLUCOSE; Start 08/21/18 at 16:30 Dextrose (D50w Syringe) 50 ml Q15M PRN IV DECREASED GLUCOSE; Start 08/21/18 at 16:30 Glucagon (Glucagen) 1 mg Q15M PRN IM DECREASED GLUCOSE; Start 08/21/18 at 16:30 Glucose (Glutose) 15 gm Q15M PRN BUCCAL DECREASED GLUCOSE; Start 08/21/18 at 16:30 Metoprolol Tartrate (Lopressor) 25 mg BID PO Last administered on 09/02/18 21:10; Admin Dose 25 MG; Start 08/23/18 at 21:00 Epinephrine (Racepinephrine 2.25% (Neb)) 0.25 ml Q3H RESP THERAPY PRN HHN STRIDOR; Start 08/23/18 at 17:00 Ondansetron HCl (Zofran Inj) 4 mg Q6H PRN IV NAUSEA AND/OR VOMITING Last administered on 08/25/18 21:47; Admin Dose 4 MG; Start 08/25/18 at 21:30 Diagnostic Test (Pha) (Accu-Chek) 1 XX ; Start 08/27/18 at 02:00 Vancomycin HCl (Vanco Iv Per Pharmacy) VANCOMYCIN PER PHARMACY PER PROTOCOL XX ; Start 08/27/18 at 11:30 Heparin Sodium (Porcine) (Heparin (5000 Units/1ml)) 5,000 unit Q8 SC Last administered on 09/01/18 14:27; Admin Dose 5,000 UNIT; Start 08/29/18 at 14:00; Status Hold Epoetin Isacc (Epogen (Non Esrd/Non Oncology)) 10,000 units MoWeFr@17 SC Last administered on 09/02/18 17:27; Admin Dose 10,000 UNITS; Start 08/29/18 at 17:00 Albumin Human 50 ml @ 100 mls/hr DURING DIALYSIS PRN IV During HD. Last administered on 08/29/18 13:55; Admin Dose 100 MLS/HR; Start 08/29/18 at 12:30 Aspirin (Aspirin) 81 mg DAILY PO Last administered on 09/03/18 08:37; Admin Dose 81 MG; Start 08/30/18 at 09:00 Calcium Acetate (Phoslo) 1,334 mg WITH MEALS GTB Last administered on 09/03/18 08:36; Admin Dose 1,334 MG; Start 08/31/18 at 12:00 Albumin Human 100 ml @ 100 mls/hr WITH DIALYSIS IV Last administered on 09/01/18 11:59; Admin Dose 100 MLS/HR; Start 09/01/18 at 10:30 Heparin Sodium (Porcine) (Heparin (1000 Units/ml)) 3,000 unit AFTER DIALYSIS CATHETER Last administered on 09/03/18 12:28; Admin Dose 3,000 UNIT; Start 09/01/18 at 12:30 Sucralfate (Carafate Susp) 1 gm QID PO Last administered on 09/03/18at 08:36; Admin Dose 1 GM; Start 09/01/18 at 16:00 Pantoprazole (Protonix Iv) 40 mg BID@06,18 IV Last administered on 09/03/18at 05:59; Admin Dose 40 MG; Start 09/01/18 at 18:00 Insulin Aspart (Novolog Insulin Pen) (Adult SC Insulin - Mild Algorithm)... AC MEALS AND BEDTIME SC ; Start 09/03/18 at 07:00 Vancomycin HCl 250 ml @ 125 mls/hr ONCE ONCE IVPB ; Start 09/03/18 at 20:00; Stop 09/03/18 at 21:59 YUMIKO JC MD Sep 03, 2018 13:48
--- NOTE | 2018-09-03 15:51 | CONS ---
Date/Time of Note Date/Time of Note DATE: 09/03/18 TIME: 15:50 Assessment/Plan Assessment/Plan Hospital Course ID PROGRESS NOTE CURRENT ABX: DAY # => Vanco IV 09/03/1842709/03/18427 24H INTERVAL SUMMARY * 33 yo M with generalized weakness, No new issues, VSS, NAD, no complaints * Per notes -- plan to continue HD another week -- keep access in place * Indwelling: Right femoral Saurabh, Suh MICRO * (-) MRSA on admission * (-)Urine * BCx(-) and CVC Tip * 08/27/18 BCx (+) Organism 1 COAGULASE NEGATIVE STAPH COAG NEG M.I.C. RX --------- --- CEFAZOLIN S CIPROFLOXACIN <=0.5 S CLINDAMYCIN <=0.25 S DOXYCYCLINE S ERYTHROMYCIN <=0.25 S LEVOFLOXACIN <=0.12 S OXACILLIN <=0.25 S PENICILLIN-G >=0.5 R RIFAMPIN <=0.5 S VANCOMYCIN 1 S TRIMETHOPRIM/SULFAMETHOXAZOLE <=10 S PHYSICAL EXAMINATION: GENERAL: Afebrile, VSS, HEENT: AT, NC, anicteric NECK: Supple, trach CHEST: Equal chest rise bilaterally, without dyspnea on observation HEART: Pulse RRR ABDOMEN: Soft / NT EXTREMITIES: Warm, dry SKIN: No rash, no diaphoresis ID ASSESSMENT 33 yo M admit with: 1. Leukocytosis, s/p fevers ==> improving 2. Gram-positive cocci bacteremia, possibly line sepsis, s/p TLC dc'd 3. Status post acute encephalopathy 4. Status post acute hypoxemic respiratory failure 5. Pulmonary edema 6. Acute renal failure, on hemodialysis 7. Severe anasarca 8. History of polysubstance abuse 9. Muscle weakness 10. Anemia (-)MRSA Nares ABX ALLERGIES: NKDA INVASIVES: PI CURRENT ABX: DAY == Vanco IV s/p ID RECOMMENDATIONS/PLAN: Continue current ABX -- Fem Saurabh Line Salvage . Result Diagram: 09/03/18 0428 09/03/18 0428 Results 24hrs Laboratory Tests Test 09/02/18 17:24 09/02/18 21:09 09/03/18 04:28 09/03/18 08:35 Bedside Glucose 109 112 102 White Blood 14.6 H Count Red Blood Count 2.51 L Hemoglobin 8.1 L Hematocrit 24.0 L Mean Corpuscular 95.6 Volume Mean Corpuscular 32.3 Hemoglobin Mean Corpuscular 33.8 Hemoglobin Monica nt Red Cell 13.2 Distribution Width Platelet Count 483 H Mean Platelet 10.8 H Volume Immature 1.600 H Granulocytes % Neutrophils % 79.8 H Lymphocytes % 6.6 L Monocytes % 8.6 Eosinophils % 3.0 Basophils % 0.4 Nucleated Red 0.0 Blood Cells % Immature 0.240 H Granulocytes # Neutrophils # 11.7 H Lymphocytes # 1.0 Monocytes # 1.3 H Eosinophils # 0.4 Basophils # 0.1 Nucleated Red 0.0 Blood Cells # Sodium Level 135 Potassium Level 5.7 H Chloride Level 95 L Carbon Dioxide 25 Level Anion Gap 15 H Blood Urea 79 H Nitrogen Creatinine 8.70 H Est Glomerular 7 L Filtrat Rate mL/min Glucose Level 112 Calcium Level 8.6 Phosphorus Level 10.7 #H Random 12.3 Vancomycin Level Test 09/03/18 12:30 Bedside Glucose 112 Consultation Date/Type/Reason Admit Date/Time Aug 20, 2018 at 21:39 Initial Consult Date 09/01/18 Requesting Provider: YUMIKO JC MD Exam/Review of Systems Vital Signs Vitals Vital Signs Date Temp Pulse Resp B/P (MAP) Pulse Ox O2 O2 Flow FiO2 Time Delivery Rate 09/03/18 99.0 88 18 128/77 100 Nasal 13:39 (94) Cannula 09/03/18 3.0 07:43 Intake and Output 09/02/18 09/02/18 09/03/18 1414:59 22:59 06:59 IntakeIntake Total 240 ml 600 ml OutputOutput Total 100 ml 250 ml BalanceBalance 140 ml 350 ml Medications Medications Current Medications Albuterol (Ventolin Hfa) 4 puff Q2H RESP THERAPY PRN INH SHORTNESS OF BREATH; Start 08/20/18 at 22:00 Ipratropium [place] (Atrovent Hfa) 4 puff Q2H RESP THERAPY PRN INH SHORTNESS OF BREATH; Start 08/20/18 at 22:00 Acetaminophen (Tylenol Liquid) 650 mg Q6H PRN PO PAIN LEVEL 1-3 OR FEVER Last a dministered on 09/02/18at 17:26; Admin Dose 650 MG; Start 08/20/18 at 22:00 Miscellaneous Information 1 ea NOTE XX ; Start 08/21/18 at 16:30 Glucose (Glutose) 15 gm Q15M PRN PO DECREASED GLUCOSE; Start 08/21/18 at 16:30 Glucose (Glutose) 22.5 gm Q15M PRN PO DECREASED GLUCOSE; Start 08/21/18 at 16:30 Dextrose (D50w Syringe) 25 ml Q15M PRN IV DECREASED GLUCOSE; Start 08/21/18 at 16:30 Dextrose (D50w Syringe) 50 ml Q15M PRN IV DECREASED GLUCOSE; Start 08/21/18 at 16:30 Glucagon (Glucagen) 1 mg Q15M PRN IM DECREASED GLUCOSE; Start 08/21/18 at 16:30 Glucose (Glutose) 15 gm Q15M PRN BUCCAL DECREASED GLUCOSE; Start 08/21/18 at 16:30 Metoprolol Tartrate (Lopressor) 25 mg BID PO Last administered on 09/02/18at 21:10; Admin Dose 25 MG; Start 08/23/18 at 21:00 Epinephrine (Racepinephrine 2.25% (Neb)) 0.25 ml Q3H RESP THERAPY PRN HHN STRIDOR; Start 08/23/18 at 17:00 Ondansetron HCl (Zofran Inj) 4 mg Q6H PRN IV NAUSEA AND/OR VOMITING Last administered on 08/25/18at 21:47; Admin Dose 4 MG; Start 08/25/18 at 21:30 Diagnostic Test (Pha) (Accu-Chek) 1 ea 02 XX ; Start 08/27/18 at 02:00 Vancomycin HCl (Vanco Iv Per Pharmacy) VANCOMYCIN PER PHARMACY PER PROTOCOL XX ; Start 08/27/18 at 11:30 Heparin Sodium (Porcine) (Heparin (5000 Units/1ml)) 5,000 unit Q8 SC Last administered on 09/01/18at 14:27; Admin Dose 5,000 UNIT; Start 08/29/18 at 14:00; Status Hold Epoetin Isacc (Epogen (Non Esrd/Non Oncology)) 10,000 units MoWeFr@17 SC Last administered on 09/02/18 17:27; Admin Dose 10,000 UNITS; Start 08/29/18 at 17:00 Albumin Human 50 ml @ 100 mls/hr DURING DIALYSIS PRN IV During HD. Last administered on 08/29/18at 13:55; Admin Dose 100 MLS/HR; Start 08/29/18 at 12:3 0 Aspirin (Aspirin) 81 mg DAILY PO Last administered on 09/03/18 08:37; Admin Dose 81 MG; Start 08/30/18 at 09:00 Calcium Acetate (Phoslo) 1,334 mg WITH MEALS GTB Last administered on 09/03/18 08:36; Admin Dose 1,334 MG; Start 08/31/18 at 12:00 Albumin Human 100 ml @ 100 mls/hr WITH DIALYSIS IV Last administered on 09/01/18at 11:59; Admin Dose 100 MLS/HR; Start 09/01/18 at 10:30 Heparin Sodium (Porcine) (Heparin (1000 Units/ml)) 3,000 unit AFTER DIALYSIS CATHETER Last administered on 09/03/18 12:28; Admin Dose 3,000 UNIT; Start 09/01/18 at 12:30 Sucralfate (Carafate Susp) 1 gm QID PO Last administered on 09/03/18at 08:36; Admin Dose 1 GM; Start 09/01/18 at 16:00 Pantoprazole (Protonix Iv) 40 mg BID@06,18 IV Last administered on 09/03/18at 05:59; Admin Dose 40 MG; Start 09/01/18 at 18:00 Insulin Aspart (Novolog Insulin Pen) (Adult SC Insulin - Mild Algorithm)... AC M EALS AND BEDTIME SC ; Start 09/03/18 at 07:00 Vancomycin HCl 250 ml @ 125 mls/hr ONCE ONCE IVPB ; Start 09/03/18 at 20:00; Stop 09/03/18 at 21:59 ARLIN PIERRE [employer] REPA[employer]ER Sep 03, 2018 15:50
[2018-09-03] MEDS ORDERED: VANCOMYCIN 1 GM 250 ML IVPB ONE (20:00)
[2018-09-04] MEDS: ACCU-CHEK XX SCH (02:00)
[2018-09-04 02:12] VITALS: BP 115/65; PULSE 92; RESP 20
[2018-09-04] MEDS: PANTOPRAZOLE 40 MG INJ IV SCH ×2 (06:06→17:33)
[2018-09-04] MEDS: INSULIN ASPART [NOVOLOG] 3 ML PEN SC SCH ×4 (07:00→21:00)
[2018-09-04 07:50] VITALS: BP 125/68; PULSE 88; RESP 17
[2018-09-04] MEDS: SUCRALFATE (100 MG/ML) 10ML CUP PO SCH ×4 (08:37→21:12)
[2018-09-04] MEDS: METOPROLOL 25 MG TAB PO SCH ×2 (08:38→21:13)
[2018-09-04] MEDS: CALCIUM ACETATE 667 MG CAP GTB SCH ×3 (08:40→17:32)
--- NOTE | 2018-09-04 09:39 | PN ---
Date/Time of Note Date/Time of Note DATE: 09/04/18 TIME: 09:27 Assessment/Plan VTE Prophylaxis Risk score (from Nsg)>0 risk: 7 SCD applied (from Nsg): Yes Pharmacological prophylaxis: other (scds) Lines/Catheters IV Catheter Type (from Nrsg): Peripheral IV Urinary Cath still in place: Yes Reason Cath still needed: other (indicate) (monitor output) Assessment/Plan Hospital Course Summary Assessment and Plan: Assessment: Melena/normocytic anemia- Reported Maroon colored stool 09/03 about 500ml EGD 09/02/18 Gastroesophageal reflux disease with mild distal esophagitis Mild acute gastritis without bleeding Biopsies obtained to rule out H. pylori Otherwise normal EGD Bacteremia Acute ventilatory dependent respiratory failure - Extubated 08/24 Acute encephalopathy- improving Elevated troponin-now appears stable- Likely demand ischemia from drug use. Coagulopathy- improved Transaminitis- improved - Hep B, Hep C negative. Rhabdomyolysis Polysubstance abuse Plan: Clear liquid diet NPO after midnight Plan for Colonoscopy tomorrow Attempted to call patient's father Kwame - no answer, left message to call the floor back. Patient seen in collaboration with Dr. Ordoñez/Cathie Subjective: Course reviewed with nursing staff Patient interviewed and examined All labs, imaging and other results reviewed Pt with more than one episode of bloody stool reported yesterday. EGD without significant findings for bleeding. Bloody stool described at maroon/red will plan for Colonoscopy tomorrow. PHYSICAL EXAMINATION: GENERAL: Alert & oriented to name, place, and year, speaks slowly SKIN: Dialysis catheter EYES: Pupils equal reactive to light, no discharge. EARS/NOSE AND THROAT: Ears normal, nose normal, oropharynx normal. NECK: Supple, no masses CHEST: Inspection within normal limits. CARDIOVASCULAR: Heart: Regular rate and rhythm RESPIRATORY: Lungs clear to auscultation GASTROINTESTINAL AND LIVER: Abdomen: Soft, non tenderness, non-distended, no hernias, no masses, no organomegaly, no ascites, no guarding, no rebound tenderness, normoactive bowel sounds. Rectal: Deferred. EXT: edema to BLUE/BLE : scrotal swelling, f/u in place with hematuria Result Diagram: 09/03/18 0428 09/03/18 0428 Results 24hrs Laboratory Tests Test 09/03/18 12:30 09/03/18 17:27 09/03/18 20:58 09/04/18 05:07 Bedside Glucose 112 108 135 Creatine Kinase 124 Test 09/04/18 08:36 Bedside Glucose 105 Exam/Review of Systems Vital Signs Vitals Vital Signs Date Temp Pulse Resp B/P (MAP) Pulse Ox O2 O2 Flow FiO2 Time Delivery Rate 09/04/18 98.0 88 17 125/68 99 07:50 (87) 09/03/18 Nasal 3.0 20:45 Cannula Intake and Output 09/03/18 09/03/18 09/04/18 1515:00 23:00 07:00 IntakeIntake Total 360 ml 480 ml 260 ml OutputOutput Total 3600 ml 500 ml BalanceBalance -3240 ml 480 ml -240 ml Medications Medications Current Medications Albuterol (Ventolin Hfa) 4 puff Q2H RESP THERAPY PRN INH SHORTNESS OF BREATH; Start 08/20/18 at 22:00 Ipratropium [place] (Atrovent Hfa) 4 puff Q2H RESP THERAPY PRN INH SHORTNESS OF BREATH; Start 08/20/18 at 22:00 Acetaminophen (Tylenol Liquid) 650 mg Q6H PRN PO PAIN LEVEL 1-3 OR FEVER Last administered on 09/02/18at 17:26; Admin Dose 650 MG; Start 08/20/18 at 22:00 Miscellaneous Information 1 ea NOTE XX ; Start 08/21/18 at 16:30 Glucose (Glutose) 15 gm Q15M PRN PO DECREASED GLUCOSE; Start 08/21/18 at 16:30 Glucose (Glutose) 22.5 gm Q15M PRN PO DECREASED GLUCOSE; Start 08/21/18 at 16:30 Dextrose (D50w Syringe) 25 ml Q15M PRN IV DECREASED GLUCOSE; Start 08/21/18 at 16:30 Dextrose (D50w Syringe) 50 ml Q15M PRN IV DECREASED GLUCOSE; Start 08/21/18 at 16:30 Glucagon (Glucagen) 1 mg Q15M PRN IM DECREASED GLUCOSE; Start 08/21/18 at 16 :30 Glucose (Glutose) 15 gm Q15M PRN BUCCAL DECREASED GLUCOSE; Start 08/21/18 at 16:30 Metoprolol Tartrate (Lopressor) 25 mg BID PO Last administered on 09/04/18at 08:38; Admin Dose 25 MG; Start 08/23/18 at 21:00 Epinephrine (Racepinephrine 2.25% (Neb)) 0.25 ml Q3H RESP THERAPY PRN HHN STRIDOR; Start 08/23/18 at 17:00 Ondansetron HCl (Zofran Inj) 4 mg Q6H PRN IV NAUSEA AND/OR VOMITING Last administered on 08/25/18at 21:47; Admin Dose 4 MG; Start 08/25/18 at 21:30 Diagnostic Test (Pha) (Accu-Chek) 1 XX ; Start 08/27/18 at 02:00 Vancomycin HCl (Vanco Iv Per Pharmacy) VANCOMYCIN PER PHARMACY PER PROTOCOL XX ; Start 08/27/18 at 11:30 Heparin Sodium (Porcine) (Heparin (5000 Units/1ml)) 5,000 unit Q8 SC Last administered on 09/01/18 14:27; Admin Dose 5,000 UNIT; Start 08/29/18 at 14:00; Status Hold Epoetin Isacc (Epogen (Non Esrd/Non Oncology)) 10,000 units MoWeFr@17 SC Last administered on 09/02/18 17:27; Admin Dose 10,000 UNITS; Start 08/29/18 at 17:00 Albumin Human 50 ml @ 100 mls/hr DURING DIALYSIS PRN IV During HD. Last administered on 08/29/18 13:55; Admin Dose 100 MLS/HR; Start 08/29/18 at 12:30 Aspirin (Aspirin) 81 mg DAILY PO Last administered on 09/03/18 08:37; Admin Dose 81 MG; Start 08/30/18 at 09:00 Calcium Acetate (Phoslo) 1,334 mg WITH MEALS GTB Last administered on 09/04/18 08:40; Admin Dose 1,334 MG; Start 08/31/18 at 12:00 Albumin Human 100 ml @ 100 mls/hr WITH DIALYSIS IV Last administered on 09/01/18 11:59; Admin Dose 100 MLS/HR; Start 09/01/18 at 10:30 Heparin Sodium (Porcine) (Heparin (1000 Units/ml)) 3,000 unit AFTER DIALYSIS CATHETER Last administered on 09/03/18 12:28; Admin Dose 3,000 UNIT; Start 09/01/18 at 12:30 Sucralfate (Carafate Susp) 1 gm QID PO Last administered on 09/04/18at 08:37; Admin Dose 1 GM; Start 09/01/18 at 16:00 Pantoprazole (Protonix Iv) 40 mg BID@18 IV Last administered on 09/04/18at 06:06; Admin Dose 40 MG; Start 09/01/18 at 18:00 Insulin Aspart (Novolog Insulin Pen) (Adult SC Insulin - Mild Algorithm)... AC MEALS AND BEDTIME SC ; Start 09/03/18 at 07:00 TOPHER BROWN Sep 04, 2018 09:37
[2018-09-04] MEDS ORDERED: BISACODYL (EC) 5 MG TAB PO ONE (10:00)
--- NOTE | 2018-09-04 12:34 | PN ---
Date/Time of Note Date/Time of Note DATE: 09/04/18 TIME: 12: Assessment/Plan VTE Prophylaxis Risk score (from Nsg)>0 risk: 7 SCD applied (from Nsg): Yes Pharmacological prophylaxis: heparin Lines/Catheters IV Catheter Type (from Nrsg): Peripheral IV Urinary Cath still in place: Yes Reason Cath still needed: other (indicate) (immobile) Assessment/Plan Assessment/Plan 33 yo man brought in found down with subsequent JULIAN secondary to rhabdomyolysis; positive for alcohol, methamphetamine, cannabis, opioids as well. #Hematochezia - Nurse reported maroon colored stool on 09/01 - EGD 09/02 only with mild gastritis and distal esophagitis - MD witnessed maroon colored, grainy stool on 09/03. Rectal exam negative for external hemorrhoids or palpable internal hemorrhoids. - PPI BID and carafate - Not associated with significant drop in Hgb. - Tentative plan for colonoscopy; GI following. # Renal failure- Oliguric renal failure with hyperkalemia (after potassium replacement), also presented with severe metabolic acidosis - Likely due to a combination of rhabdo and drug use. CK level still slightly elevated, but trending down now the last few days - Continue dialysis per renal recommendations #Encephalopathy #Polyneuropathy - Despite extubation on 08/24, he remains very lethargic and profoundly weak. - Head CT 08/20 negative - Repeat CT on 08/31 shows some edema of the basal ganglia, confirmed on MRI, this likely represents residual toxic metabolic effect. - TSH, ammonia, AM cortisol are normal. CK has normalized. - Associated with proximal muscle weakness but intact sensation. 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 It does not respond to steroids. - Neurology following. #Bacteremia - Had fever on 08/27. - Blood culture (x1 unfortunately) from that day is growing coag negative staph, a common contaminant. Repeat blood culture negative. - Currently on vanco per ID - D/Matias right IJ. But his femoral dialysis catheter may also be a source of infection. # acute respiratory failure - extubated 08/24, was likely secondary to polysubstance overdose resulting in multiorgan dysfunction; patient had subsequent severe metabolic acidosis with inadequate respiratory compensation-now oxygen levels stable on nasal cannula supplementation -s/p course of zosyn for CAP. - Now on minimal nasal cannula. - Current hypoxia is probably due to respiratory muscle weakness. # Elevated troponin-now appears stable- CV consulted earlier this admission. Likely demand ischemia from drug use. - Will not treat per NSTEMI protocol, monitor, follow-up cardiology recommendations # transaminitis: - May be from shock liver or drug use.- Hep B, Hep C negative. LFTs have trended down. # Rhabdomyolysis - resolved # Coagulopathy- May be due to liver and renal injury as well as drug use- No DIC. Resolved. # polysubstance abuse - Again patient was found to be positive for opioids, methamphetamine, marijuana and an elevated blood alcohol level. -Earlier this admission ordered for thiamine 300 mg IM daily times 3 days, further treatment as per the clinical course # DVT and GI prophylaxis: Protonix twice daily Result Diagram: 09/03/1842709/03/188 Results 24hrs Laboratory Tests Test 09/03/18 12:30 09/03/18 17:27 09/03/18 20:58 09/04/18 05:07 Bedside Glucose 112 108 135 Creatine Kinase 124 Test 09/04/18 08:36 Bedside Glucose 105 Subjective 24 Hr Interval Summary Free Text/Dictation Yesterday afternoon, patient had about 500 cc maroon-colored stool again. Not associated with a significant Hgb drop this morning. This morning father was at bedside. I updated him on the plan and answered questions. This morning the patient appears more awake. Answering questions appropriately. Exam/Review of Systems Vital Signs Vitals Vital Signs Date Temp Pulse Resp B/P (MAP) Pulse Ox O2 O2 Flow FiO2 Time Delivery Rate 09/04/18 98.0 88 17 125/68 99 07:50 (87) 09/03/18 Nasal 3.0 20:45 Cannula Intake and Output 09/03/18 09/03/18 09/04/18 1515:00 23:00 07:00 IntakeIntake Total 360 ml 480 ml 260 ml OutputOutput Total 3600 ml 500 ml BalanceBalance -3240 ml 480 ml -240 ml Exam Gen: Lying in bed, no acute distress, nasal cannula in place. Eyes: Pupils equal round reactive to light, extraocular muscles intact HEENT: moist mucous membranes, Card: Regular rate and rhythm no murmurs Pulm: Clear breath sounds bilaterally, no crackles. Abd: Soft, nondistended. Ext: Bilateral upper arms with 2+ nonpitting edema. Neuro: Awake, oriented to year, month but not day. Oriented to location "hospital" but not the city or name of the hospital. Oriented to own name. He is able to wiggle L toes but not R toes today. He has sensation to slight touch on bilateral upper and lower extremities. Medications Medications Current Medications Albuterol (Ventolin Hfa) 4 puff Q2H RESP THERAPY PRN INH SHORTNESS OF BREATH; Start 08/20/18 at 22:00 Ipratropium [place] (Atrovent Hfa) 4 puff Q2H RESP THERAPY PRN INH SHORTNESS OF BREATH; Start 08/20/18 at 22:00 Acetaminophen (Tylenol Liquid) 650 mg Q6H PRN PO PAIN LEVEL 1-3 OR FEVER Last administered on 09/02/18at 17:26; Admin Dose 650 MG; Start 08/20/18 at 22:00 Miscellaneous Information 1 ea NOTE XX ; Start 08/21/18 at 16:30 Glucose (Glutose) 15 gm Q15M PRN PO DECREASED GLUCOSE; Start 08/21/18 at 16:30 Glucose (Glutose) 22.5 gm Q15M PRN PO DECREASED GLUCOSE; Start 08/21/18 at 16:30 Dextrose (D50w Syringe) 25 ml Q15M PRN IV DECREASED GLUCOSE; Start 08/21/18 at 16:30 Dextrose (D50w Syringe) 50 ml Q15M PRN IV DECREASED GLUCOSE; Start 08/21/18 at 16:30 Glucagon (Glucagen) 1 mg Q15M PRN IM DECREASED GLUCOSE; Start 08/21/18 at 16:30 Glucose (Glutose) 15 gm Q15M PRN BUCCAL DECREASED GLUCOSE; Start 08/21/18 at 16:30 Metoprolol Tartrate (Lopressor) 25 mg BID PO Last administered on 09/04/18at 08:38; Admin Dose 25 MG; Start 08/23/18 at 21:00 Epinephrine (Racepinephrine 2.25% (Neb)) 0.25 ml Q3H RESP THERAPY PRN HHN STRIDOR; Start 08/23/18 at 17:00 Ondansetron HCl (Zofran Inj) 4 mg Q6H PRN IV NAUSEA AND/OR VOMITING Last administered on 08/25/18at 21:47; Admin Dose 4 MG; Start 08/25/18 at 21:30 Diagnostic Test (Pha) (Accu-Chek) XX ; Start 08/27/18 at 02:00 Vancomycin HCl (Vanco Iv Per Pharmacy) VANCOMYCIN PER PHARMACY PER PROTOCOL XX ; Start 08/27/18 at 11:30 Heparin Sodium (Porcine) (Heparin (5000 Units/1ml)) 5,000 unit Q8 SC Last administered on 09/01/18 14:27; Admin Dose 5,000 UNIT; Start 08/29/18 at 14:00; Status Hold Epoetin Isacc (Epogen (Non Esrd/Non Oncology)) 10,000 units MoWeFr@17 SC Last administered on 09/02/18at 17:27; Admin Dose 10,000 UNITS; Start 08/29/18 at 17:00 Albumin Human 50 ml @ 100 mls/hr DURING DIALYSIS PRN IV During HD. Last administered on 08/29/18 13:55; Admin Dose 100 MLS/HR; Start 08/29/18 at 12:30 Aspirin (Aspirin) 81 mg DAILY PO Last administered on 09/03/18at 08:37; Admin Dose 81 MG; Start 08/30/18 at 09:00; Status Hold Calcium Acetate (Phoslo) 1,334 mg WITH MEALS GTB Last administered on 09/04/18 08:40; Admin Dose 1,334 MG; Start 08/31/18 at 12:00 Albumin Human 100 ml @ 100 mls/hr WITH DIALYSIS IV Last administered on at 11:59; Admin Dose 100 MLS/HR; Start 09/01/18 at 10:30 Heparin Sodium (Porcine) (Heparin (1000 Units/ml)) 3,000 unit AFTER DIALYSIS CATHETER Last administered on 09/03/18at 12:28; Admin Dose 3,000 UNIT; Start 09/01/18 at 12:30 Sucralfate (Carafate Susp) 1 gm QID PO Last administered on 09/04/18at 08:37; Admin Dose 1 GM; Start 09/01/18 at 16:00 Pantoprazole (Protonix Iv) 40 mg BID@06,18 IV Last administered on 09/04/18 06:06; Admin Dose 40 MG; Start 09/01/18 at 18:00 Insulin Aspart (Novolog Insulin Pen) (Adult SC Insulin - Mild Algorithm)... AC MEALS AND BEDTIME SC ; Start 09/03/18 at 07:00 Magnesium Citrate (Citroma) 300 ml ONCE ONCE PO ; Start 09/04/18 at 17:30; Stop 09/04/18 at 17:31 Polyethylene Glycol (Miralax) 119 gm ONCE ONCE PO ; Start 09/04/18 at 18:30; Stop 09/04/18 at 18:31 Polyethylene Glycol (Miralax) 119 gm 2ND DOSE (GI PREP) ONCE PO ; Start 8 at 06:00; Stop 09/05/18 at 06:01 Bisacodyl (Dulcolax) 10 mg 2ND DOSE (GI PREP) ONCE PO ; Start 09/05/18 at 08:00; Stop 09/05/18 at 08:01 YUMIKO JC MD Sep 04, 2018 12:33
--- NOTE | 2018-09-04 13:39 | CONS ---
Date/Time of Note Date/Time of Note DATE: 09/04/18 TIME: 13:35 Assessment/Plan Assessment/Plan Assessment/Plan # JULIAN CMP not done today, ordered now Due to rhabdomyolysis/ATN Urine output improved Remains dialysis dependent HD tomorrow # Encephalopathy Neurology evaluation noted Metabolic encephalopathy # Anemia Hb trending down Continue SUKHJINDER Monitor # Respiratory failure Resolved # Drug abuse # ?GIB scheduled for colonoscopy tomorrow Result Diagram: 09/03/18 0428 09/03/18 0428 Results 24hrs Laboratory Tests Test 09/03/18 17:27 09/03/18 20:58 09/04/18 05:07 09/04/18 08:36 Bedside Glucose 108 135 105 Creatine Kinase 124 Test 09/04/18 12:58 Bedside Glucose 123 Consultation Date/Type/Reason Admit Date/Time Aug 20, 2018 at 21:39 Initial Consult Date 09/01/18 Type of Consult Nephrology Requesting Provider: YUMIKO JC MD 24 HR Interval Summary Free Text/Dictation Alert, answering simple questions. Father at bedside. Exam/Review of Systems Vital Signs Vitals Vital Signs Date Temp Pulse Resp B/P (MAP) Pulse Ox O2 O2 Flow FiO2 Time Delivery Rate 09/04/18 98.0 88 17 125/68 99 07:50 (87) 09/03/18 Nasal 3.0 20:45 Cannula Intake and Output 09/03/18 09/03/18 09/04/18 1515:00 23:00 07:00 IntakeIntake Total 360 ml 480 ml 260 ml OutputOutput Total 3600 ml 500 ml BalanceBalance -3240 ml 480 ml -240 ml Exam Constitutional: alert Neck: No jvd Respiratory: clear to auscultation Cardiovascular: regular rate and rhythm Gastrointestinal: soft, non-tender Extremities: edema (bilateral upper ext edema) Medications Medications Current Medications Albuterol (Ventolin Hfa) 4 puff Q2H RESP THERAPY PRN INH SHORTNESS OF BREATH; Start 08/20/18 at 22:00 Ipratropium [place] (Atrovent Hfa) 4 puff Q2H RESP THERAPY PRN INH SHORTNESS OF BREATH; Start 08/20/18 at 22:00 Acetaminophen (Tylenol Liquid) 650 mg Q6H PRN PO PAIN LEVEL 1-3 OR FEVER Last administered on 09/02/18at 17:26; Admin Dose 650 MG; Start 08/20/18 at 22:00 Miscellaneous Information 1 ea NOTE XX ; Start 08/21/18 at 16:30 Glucose (Glutose) 15 gm Q15M PRN PO DECREASED GLUCOSE; Start 08/21/18 at 16:30 Glucose (Glutose) 22.5 gm Q15M PRN PO DECREASED GLUCOSE; Start 08/21/18 at 16:30 Dextrose (D50w Syringe) 25 ml Q15M PRN IV DECREASED GLUCOSE; Start 08/21/18 at 16:30 Dextrose (D50w Syringe) 50 ml Q15M PRN IV DECREASED GLUCOSE; Start 08/21/18 at 16:30 Glucagon (Glucagen) 1 mg Q15M PRN IM DECREASED GLUCOSE; Start 08/21/18 at 16:30 Glucose (Glutose) 15 gm Q15M PRN BUCCAL DECREASED GLUCOSE; Start 08/21/18 at 16:30 Metoprolol Tartrate (Lopressor) 25 mg BID PO Last administered on 09/04/18at 08:38; Admin Dose 25 MG; Start 08/23/18 at 21:00 Epinephrine (Racepinephrine 2.25% (Neb)) 0.25 ml Q3H RESP THERAPY PRN HHN STRIDOR; Start 08/23/18 at 17:00 Ondansetron HCl (Zofran Inj) 4 mg Q6H PRN IV NAUSEA AND/OR VOMITING Last administered on 08/25/18at 21:47; Admin Dose 4 MG; Start 08/25/18 at 21:30 Diagnostic Test (Pha) (Accu-Chek) 1 ea 02 XX ; Start 08/27/18 at 02:00 Vancomycin HCl (Vanco Iv Per Pharmacy) VANCOMYCIN PER PHARMACY PER PROTOCOL XX ; Start 08/27/18 at 11:30 Heparin Sodium (Porcine) (Heparin (5000 Units/1ml)) 5,000 unit Q8 SC Last administered on 09/01/18at 14:27; Admin Dose 5,000 UNIT; Start 08/29/18 at 14:00; Status Hold Epoetin Isacc (Epogen (Non Esrd/Non Oncology)) 10,000 units MoWeFr@17 SC Last administered on 09/02/18at 17:27; Admin Dose 10,000 UNITS; Start 08/29/18 at 17:00 Albumin Human 50 ml @ 100 mls/hr DURING DIALYSIS PRN IV During HD. Last administered on 08/29/18at 13:55; Admin Dose 100 MLS/HR; Start 08/29/18 at 12:30 Aspirin (Aspirin) 81 mg DAILY PO Last administered on 09/03/18at 08:37; Admin Dose 81 MG; Start 08/30/18 at 09:00; Status Hold Calcium Acetate (Phoslo) 1,334 mg WITH MEALS GTB Last administered on 09/04/18at 13:01; Admin Dose 1,334 MG; Start 08/31/18 at 12:00 Albumin Human 100 ml @ 100 mls/hr WITH DIALYSIS IV Last administered on 09/01/18at 11:59; Admin Dose 100 MLS/HR; Start 09/01/18 at 10:30 Heparin Sodium (Porcine) (Heparin (1000 Units/ml)) 3,000 unit AFTER DIALYSIS CATHETER Last administered on 09/03/18at 12:28; Admin Dose 3,000 UNIT; Start 09/01/18 at 12:30 Sucralfate (Carafate Susp) 1 gm QID PO Last administered on 09/04/18at 13:01; Admin Dose 1 GM; Start 09/01/18 at 16:00 Pantoprazole (Protonix Iv) 40 mg BID@06,18 IV Last administered on 09/04/18at 06:06; Admin Dose 40 MG; Start 09/01/18 at 18:00 Insulin Aspart (Novolog Insulin Pen) (Adult SC Insulin - Mild Algorithm)... AC MEALS AND BEDTIME SC ; Start 09/03/18 at 07:00 Magnesium Citrate (Citroma) 300 ml ONCE ONCE PO ; Start 09/04/18 at 17:30; Stop 09/04/18 at 17:31 Polyethylene Glycol (Miralax) 119 gm ONCE ONCE PO ; Start 09/04/18 at 18:30; Stop 09/04/18 at 18:31 Polyethylene Glycol (Miralax) 119 gm 2ND DOSE (GI PREP) ONCE PO ; Start 09/05/18 at 06:00; Stop 09/05/18 at 06:01 Bisacodyl (Dulcolax) 10 mg 2ND DOSE (GI PREP) ONCE PO ; Start 09/05/18 at 08:00; Stop 09/05/18 at 08:01 JOY PEREZ MD Sep 04, 2018 13:39
[2018-09-04 14:41] VITALS: BP 114/64; PULSE 85; RESP 18
[2018-09-04] MEDS ORDERED: PEG/ELECTROLYTES 4L BTL PO ONE (15:30)
--- NOTE | 2018-09-04 15:44 | CONS ---
Date/Time of Note Date/Time of Note DATE: 09/04/18 TIME: 15:43 Assessment/Plan Assessment/Plan Hospital Course ID PROGRESS NOTE CURRENT ABX: DAY # => Vanco IV 24H INTERVAL SUMMARY * Resting, VSS, no fevers, NAD -- No labs today, plan is for HD tomorrow --> to continue HD another week * Pending colo for GIB work up * Indwelling: Right femoral Saurabh, Suh MICRO * (-) MRSA on admission * (-)Urine * BCx(-) and CVC Tip * 08/27/18 BCx (+) Organism 1 COAGULASE NEGATIVE STAPH COAG NEG M.I.C. RX --------- --- CEFAZOLIN S CIPROFLOXACIN <=0.5 S CLINDAMYCIN <=0.25 S DOXYCYCLINE S ERYTHROMYCIN <=0.25 S LEVOFLOXACIN <=0.12 S OXACILLIN <=0.25 S PENICILLIN-G >=0.5 R RIFAMPIN <=0.5 S VANCOMYCIN 1 S TRIMETHOPRIM/SULFAMETHOXAZOLE <=10 S PHYSICAL EXAMINATION: GENERAL: Afebrile, VSS, HEENT: AT, NC, anicteric NECK: Supple, trach CHEST: Equal chest rise bilaterally, without dyspnea on observation HEART: Pulse RRR ABDOMEN: Soft / NT EXTREMITIES: Warm, dry SKIN: No rash, no diaphoresis ID ASSESSMENT 33 yo M admit with: 1. Leukocytosis, s/p fevers ==> improving 2. Gram-positive cocci bacteremia, possibly line sepsis, s/p TLC dc'd 3. Status post acute encephalopathy 4. Status post acute hypoxemic respiratory failure 5. Pulmonary edema 6. Acute renal failure, on hemodialysis 7. Severe anasarca 8. History of polysubstance abuse 9. Muscle weakness 10. Anemia (-)MRSA Nares ABX ALLERGIES: NKDA INVASIVES: PI CURRENT ABX: DAY == Vanco IV s/p ID RECOMMENDATIONS/PLAN: Continue current ABX -- Fem Saurabh Line Salvage . Result Diagram: 09/03/18 0428 09/04/18 1430 Results 24hrs Laboratory Tests Test 09/03/18 17:27 09/03/18 20:58 09/04/18 05:07 09/04/18 08:36 Bedside Glucose 108 135 105 Creatine Kinase 124 Test 09/04/18 12:58 09/04/18 14:30 Bedside Glucose 123 Sodium Level 133 L Potassium Level 5.4 H Chloride Level 95 L Carbon Dioxide 25 Level Anion Gap 13 Blood Urea 76 H Nitrogen Creatinine 7.06 H Est Glomerular 9 L Filtrat Rate mL/min Glucose Level 122 Calcium Level 8.6 Total Bilirubin 0.1 L Direct Bilirubin 0.00 Indirect 0.1 Bilirubin Aspartate Amino 50 H Transf (AST/SGOT ) Alanine 135 H Aminotransferase (ALT/SGPT) Alkaline 61 Phosphatase Total Protein 5.8 L Albumin 2.9 L Globulin 2.90 Albumin/Globulin 1.00 Ratio Consultation Date/Type/Reason Admit Date/Time Aug 20, 2018 at 21:39 Initial Consult Date 09/01/18 Requesting Provider: YUMIKO JC MD Exam/Review of Systems Vital Signs Vitals Vital Signs Date Temp Pulse Resp B/P (MAP) Pulse Ox O2 O2 Flow FiO2 Time Delivery Rate 09/04/18 3.0 14:51 09/04/18 98.8 85 18 114/64 100 14:41 (81) 09/03/18 Nasal 20:45 Cannula Intake and Output 09/03/18 09/03/18 09/04/18 1515:00 23:00 07:00 IntakeIntake Total 360 ml 480 ml 260 ml OutputOutput Total 3600 ml 500 ml BalanceBalance -3240 ml 480 ml -240 ml Medications Medications Current Medications Albuterol (Ventolin Hfa) 4 puff Q2H RESP THERAPY PRN INH SHORTNESS OF BREATH; Start 08/20/18 at 22:00 Ipratropium [place] (Atrovent Hfa) 4 puff Q2H RESP THERAPY PRN INH SHORTNESS OF BREATH; Start 08/20/18 at 22:00 Acetaminophen (Tylenol Liquid) 650 mg Q6H PRN PO PAIN LEVEL 1-3 OR FEVER Last administered on 09/02/18at 17:26; Admin Dose 650 MG; Start 08/20/18 at 22:00 Miscellaneous Information 1 ea NOTE XX ; Start 08/21/18 at 16:30 Glucose (Glutose) 15 gm Q15M PRN PO DECREASED GLUCOSE; Start 08/21/18 at 16:30 Glucose (Glutose) 22.5 gm Q15M PRN PO DECREASED GLUCOSE; Start 08/21/18 at 16:30 Dextrose (D50w Syringe) 25 ml Q15M PRN IV DECREASED GLUCOSE; Start 08/21/18 at 16:30 Dextrose (D50w Syringe) 50 ml Q15M PRN IV DECREASED GLUCOSE; Start 08/21/18 at 16:30 Glucagon (Glucagen) 1 mg Q15M PRN IM DECREASED GLUCOSE; Start 08/21/18 at 16:30 Glucose (Glutose) 15 gm Q15M PRN BUCCAL DECREASED GLUCOSE; Start 08/21/18 at 16:30 Metoprolol Tartrate (Lopressor) 25 mg BID PO Last administered on 09/04/18at 08:38; Admin Dose 25 MG; Start 08/23/18 at 21:00 Epinephrine (Racepinephrine 2.25% (Neb)) 0.25 ml Q3H RESP THERAPY PRN HHN STRIDOR; Start 08/23/18 at 17:00 Ondansetron HCl (Zofran Inj) 4 mg Q6H PRN IV NAUSEA AND/OR VOMITING Last administered on 08/25/18at 21:47; Admin Dose 4 MG; Start 08/25/18 at 21:30 Diagnostic Test (Pha) (Accu-Chek) 1 XX ; Start 08/27/18 at 02:00 Vancomycin HCl (Vanco Iv Per Pharmacy) VANCOMYCIN PER PHARMACY PER PROTOCOL XX ; Start 08/27/18 at 11:30 Heparin Sodium (Porcine) (Heparin (5000 Units/1ml)) 5,000 unit Q8 SC Last administered on 09/01/18at 14:27; Admin Dose 5,000 UNIT; Start 08/29/18 at 14:00; Status Hold Epoetin Isacc (Epogen (Non Esrd/Non Oncology)) 10,000 units MoWeFr@17 SC Last administered on 09/02/18at 17:27; Admin Dose 10,000 UNITS; Start 08/29/18 at 17:00 Albumin Human 50 ml @ 100 mls/hr DURING DIALYSIS PRN IV During HD. Last administered on 08/29/18at 13:55; Admin Dose 100 MLS/HR; Start 08/29/18 at 12:30 Aspirin (Aspirin) 81 mg DAILY PO Last administered on 09/03/18at 08:37; Admin Dose 81 MG; Start 08/30/18 at 09:00; Status Hold Calcium Acetate (Phoslo) 1,334 mg WITH MEALS GTB Last administered on 09/04/18at 13:01; Admin Dose 1,334 MG; Start 08/31/18 at 12:00 Albumin Human 100 ml @ 100 mls/hr WITH DIALYSIS IV Last administered on 09/01/18at 11:59; Admin Dose 100 MLS/HR; Start 09/01/18 at 10:30 Heparin Sodium (Porcine) (Heparin (1000 Units/ml)) 3,000 unit AFTER DIALYSIS CATHETER Last administered on 09/03/18at 12:28; Admin Dose 3,000 UNIT; Start 09/01/18 at 12:30 Sucralfate (Carafate Susp) 1 gm QID PO Last administered on 09/04/18at 13:01; Admin Dose 1 GM; Start 09/01/18 at 16:00 Pantoprazole (Protonix Iv) 40 mg BID@06,18 IV Last administered on 09/04/18at 06:06; Admin Dose 40 MG; Start 09/01/18 at 18:00 Insulin Aspart (Novolog Insulin Pen) (Adult SC Insulin - Mild Algorithm)... AC MEALS AND BEDTIME SC ; Start 09/03/18 at 07:00 Polyethylene Glycol (Miralax) 119 gm ONCE ONCE PO ; Start 09/04/18 at 18:30; Stop 09/04/18 at 18:31 Polyethylene Glycol (Miralax) 119 gm 2ND DOSE (GI PREP) ONCE PO ; Start 09/05/18 at 06:00; Stop 09/05/18 at 06:01 Bisacodyl (Dulcolax) 10 mg 2ND DOSE (GI PREP) ONCE PO ; Start 09/05/18 at 08:00; Stop 09/05/18 at 08:01 ARLIN PIERRE NP Sep 04, 2018 15:44
[2018-09-04] MEDS ORDERED: MAGNESIUM CITRATE 300 ML BTL PO ONE (17:30)
[2018-09-04] MEDS ORDERED: POLYETHYLENE GLYCOL 3350 119 GM POWDER PO ONE (18:30)
[2018-09-04 20:09] VITALS: BP 119/71; PULSE 91; RESP 18
[2018-09-05] VITALS (25 sets, daily range): BP systolic 109–171; BP diastolic 60–99; PULSE 68–88; RESP 14–20
[2018-09-05] MEDS: ACCU-CHEK XX SCH (01:10)
[2018-09-05] MEDS: PANTOPRAZOLE 40 MG INJ IV SCH ×2 (05:28→17:45)
[2018-09-05] MEDS ORDERED: POLYETHYLENE GLYCOL 3350 119 GM POWDER PO ONE (06:00)
[2018-09-05] MEDS: INSULIN ASPART [NOVOLOG] 3 ML PEN SC SCH ×4 (07:00→21:00)
[2018-09-05] MEDS ORDERED: PROPOFOL 200 MG INJ ONE (07:00)
[2018-09-05] MEDS ORDERED: BISACODYL (EC) 5 MG TAB PO ONE (08:00)
[2018-09-05] MEDS: CALCIUM ACETATE 667 MG CAP GTB SCH ×3 (08:00→17:45)
[2018-09-05] MEDS: SUCRALFATE (100 MG/ML) 10ML CUP PO SCH ×4 (09:00→21:28)
[2018-09-05] MEDS: METOPROLOL 25 MG TAB PO SCH ×2 (09:00→21:00)
[2018-09-05] MEDS: HEPARIN 1000 UNITS/ML 10 ML INJ CATHETER SCH (10:12)
--- NOTE | 2018-09-05 10:40 | PN ---
Date/Time of Note Date/Time of Note DATE: 09/05/18 TIME: 10:37 Assessment/Plan VTE Prophylaxis Risk score (from Ns)>0 risk: 4 SCD applied (from Ns): No SCD contraindicated: other Pharmacological prophylaxis: heparin Lines/Catheters [facility] [facility] Urinary Cath still in place: Yes Reason Cath still needed: urinary retention Assessment/Plan Hospital Course S: Patient still with some occasional bloody stool. Awaiting colonoscopy later today. Also awaiting dialysis for later today. O: VS - see below PE: Gen: Lying in bed, no acute distress, NG tube in place Eyes: Pupils equal round reactive to light, extraocular muscles intact HEENT: ET tube in place, moist mucous membranes, Card: Regular rate and rhythm no murmurs Pulm: Mechanical breath sounds bilaterally, no crackles. Abd: Soft, nondistended. Ext: No cyanosis/clubbing/edema Skin: Large fluid-filled bulla R medial thigh. : Suh in place with minimal urine output. Assessment/Plan: 33 yo man brought in found down with subsequent JULIAN secondary to rhabdomyolysis; positive for alcohol, methamphetamine, cannabis, opioids as well. # Renal failure- Oliguric renal failure with hyperkalemia (after potassium replacement), also presented with severe metabolic acidosis- Likely due to a combination of rhabdo and drug use. CK levels normal now, but patient presently dialysis dependent. - Continue dialysis per renal recommendations #Hematochezia- Nurse reported maroon colored stool on 09/01- EGD 09/02 only with mild gastritis and distal esophagitis- MD witnessed maroon colored, grainy stool on 09/03. Rectal exam negative for external hemorrhoids or palpable internal hemorrhoids. -For now continue PPI BID and carafate -Given the drop in Hgb, will order for PRBC transfusion today -Planning for colonoscopy today; GI following. #Encephalopathy and Polyneuropathy- Despite extubation on 08/24, he remains very lethargic and profoundly weak.- Head CT 08/20 negative- Repeat CT on 08/31 shows some edema of the basal ganglia, confirmed on MRI, this likely represents residual toxic metabolic effect - TSH, ammonia, AM cortisol are normal. 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 It does not respond to steroids. -Monitor, follow-up recommendations from neurology - following. #Bacteremia- Had fever on 08/27 - Blood culture (x1 unfortunately) from that day is growing coag negative staph, a common contaminant. Repeat blood culture negative.- D/Matias right IJ. But his femoral dialysis catheter may also be a source of infection. - Currently on vanco per ID, continue for now - Follow-up ID recommendations # acute respiratory failure- extubated 08/24, was likely secondary to polysubstance overdose resulting in multiorgan dysfunction; patient had subsequent severe metabolic acidosis with inadequate respiratory compensation- now oxygen levels stable on nasal cannula supplementation-s/p course of zosyn for CAP- Now on minimal nasal cannula. -Monitor, continue oxygen supplementation as needed # Elevated troponin-now appears stable- CV consulted earlier this admission. Likely demand ischemia from drug use. - Will not treat per NSTEMI protocol, monitor, follow-up cardiology recommendations # transaminitis: - May be from shock liver or drug use.- Hep B, Hep C negative. LFTs have trended down. # Rhabdomyolysis - resolved # Coagulopathy- May be due to liver and renal injury as well as drug use- No DIC. Resolved. # polysubstance abuse - Again patient was found to be positive for opioids, methamphetamine, marijuana and an elevated blood alcohol level. -Earlier this admission ordered for thiamine 300 mg IM daily times 3 days, further treatment as per the clinical course # DVT and GI prophylaxis: Protonix twice daily Result Diagram: 09/05/18 0531 09/05/18 0531 Results 24hrs Laboratory Tests Test 09/04/18 12:58 09/04/18 14:30 09/04/18 17:30 09/04/18 21:10 Bedside Glucose 123 116 88 Sodium Level 133 L Potassium Level 5.4 H Chloride Level 95 L Carbon Dioxide 25 Level Anion Gap 13 Blood Urea 76 H Nitrogen Creatinine 7.06 H Est Glomerular 9 L Filtrat Rate mL/min Glucose Level 122 Calcium Level 8.6 Total Bilirubin 0.1 L Direct Bilirubin 0.00 Indirect 0.1 Bilirubin Aspartate Amino 50 H Transf (AST/SGOT ) Alanine 135 H Aminotransferase (ALT/SGPT) Alkaline 61 Phosphatase Total Protein 5.8 L Albumin 2.9 L Globulin 2.90 Albumin/Globulin 1.00 Ratio Test 09/05/18 05:31 09/05/18 07:53 White Blood 12.8 H Count Red Blood Count 2.30 L Hemoglobin 7.4 L Hematocrit 22.1 L Mean Corpuscular 96.1 Volume Mean Corpuscular 32.2 Hemoglobin Mean Corpuscular 33.5 Hemoglobin Monica nt Red Cell 13.3 Distribution Width Platelet Count 473 H Mean Platelet 10.7 H Volume Immature 1.300 H Granulocytes % Neutrophils % 74.6 Lymphocytes % 9.1 L Monocytes % 9.2 Eosinophils % 5.1 Basophils % 0.7 Nucleated Red 0.0 Blood Cells % Immature 0.170 H Granulocytes # Neutrophils # 9.5 H Lymphocytes # 1.2 Monocytes # 1.2 H Eosinophils # 0.7 H Basophils # 0.1 Nucleated Red 0.0 Blood Cells # Sodium Level 138 Potassium Level 4.7 Chloride Level 96 L Carbon Dioxide 25 Level Anion Gap 17 H Blood Urea 91 H Nitrogen Creatinine 7.59 H Est Glomerular 8 L Filtrat Rate mL/min Glucose Level 104 Calcium Level 8.7 Phosphorus Level 11.2 H Total Bilirubin 0.2 Direct Bilirubin 0.00 Indirect 0.2 Bilirubin Aspartate Amino 45 Transf (AST/SGOT ) Alanine 121 H Aminotransferase (ALT/SGPT) Alkaline 58 Phosphatase Total Protein 5.8 L Albumin 2.8 L Globulin 3.00 Albumin/Globulin 0.93 Ratio Bedside Glucose 101 Exam/Review of Systems Vital Signs Vitals Vital Signs Date Temp Pulse Resp B/P (MAP) Pulse Ox O2 O2 Flow FiO2 Time Delivery Rate 09/05/18 77 18 132/85 100 Nasal 2.0 09:40 (101) Cannula 09/05/18 97.3 07:45 Intake and Output 09/04/18 09/04/18 09/05/18 1515:00 23:00 07:00 IntakeIntake Total 960 ml 480 ml 480 ml OutputOutput Total 200 ml 1350 ml 1000 ml BalanceBalance 760 ml -870 ml -520 ml Medications Medications Current Medications Albuterol (Ventolin Hfa) 4 puff Q2H RESP THERAPY PRN INH SHORTNESS OF BREATH; Start 08/20/18 at 22:00 Ipratropium [place] (Atrovent Hfa) 4 puff Q2H RESP THERAPY PRN INH SHORTNESS OF BREATH; Start 08/20/18 at 22:00 Acetaminophen (Tylenol Liquid) 650 mg Q6H PRN PO PAIN LEVEL 1-3 OR FEVER Last administered on 09/02/18at 17:26; Admin Dose 650 MG; Start 08/20/18 at 22:00 Miscellaneous Information 1 ea NOTE XX ; Start 08/21/18 at 16:30 Glucose (Glutose) 15 gm Q15M PRN PO DECREASED GLUCOSE; Start 08/21/18 at 16:30 Glucose (Glutose) 22.5 gm Q15M PRN PO DECREASED GLUCOSE; Start 08/21/18 at 16:30 Dextrose (D50w Syringe) 25 ml Q15M PRN IV DECREASED GLUCOSE; Start 08/21/18 at 16:30 Dextrose (D50w Syringe) 50 ml Q15M PRN IV DECREASED GLUCOSE; Start 08/21/18 at 16:30 Glucagon (Glucagen) 1 mg Q15M PRN IM DECREASED GLUCOSE; Start 08/21/18 at 16:30 Glucose (Glutose) 15 gm Q15M PRN BUCCAL DECREASED GLUCOSE; Start 08/21/18 at 16:30 Metoprolol Tartrate (Lopressor) 25 mg BID PO Last administered on 09/04/18at 21:13; Admin Dose 25 MG; Start 08/23/18 at 21:00 Epinephrine (Racepinephrine 2.25% (Neb)) 0.25 ml Q3H RESP THERAPY PRN HHN STRIDOR; Start 08/23/18 at 17:00 Ondansetron HCl (Zofran Inj) 4 mg Q6H PRN IV NAUSEA AND/OR VOMITING Last admi nistered on 08/25/18at 21:47; Admin Dose 4 MG; Start 08/25/18 at 21:30 Diagnostic Test (Pha) (Accu-Chek) 1 ea 02 XX ; Start 08/27/18 at 02:00 Vancomycin HCl (Vanco Iv Per Pharmacy) VANCOMYCIN PER PHARMACY PER PROTOCOL XX ; Start 08/27/18 at 11:30 Heparin Sodium (Porcine) (Heparin (5000 Units/1ml)) 5,000 unit Q8 SC Last administered on 09/01/18at 14:27; Admin Dose 5,000 UNIT; Start 08/29/18 at 14:00; Status Hold Epoetin Isacc (Epogen (Non Esrd/Non Oncology)) 10,000 units MoWeFr@17 SC Last administered on 09/02/18at 17:27; Admin Dose 10,000 UNITS; Start 08/29/18 at 17:00 Albumin Human 50 ml @ 100 mls/hr DURING DIALYSIS PRN IV During HD. Last administered on 08/29/18at 13:55; Admin Dose 100 MLS/HR; Start 08/29/18 at 12:30 Aspirin (Aspirin) 81 mg DAILY PO Last administered on 09/03/18at 08:37; Admin Dose 81 MG; Start 08/30/18 at 09:00; Status Hold Calcium Acetate (Phoslo) 1,334 mg WITH MEALS GTB Last administered on 09/04/18at 17:32; Admin Dose 1,334 MG; Start 08/31/18 at 12:00 Albumin Human 100 ml @ 100 mls/hr WITH DIALYSIS IV Last administered on 09/01/18at 11:59; Admin Dose 100 MLS/HR; Start 09/01/18 at 10:30 Heparin Sodium (Porcine) (Heparin (1000 Units/ml)) 3,000 unit AFTER DIALYSIS CATHETER Last administered on 09/05/18at 10:12; Admin Dose 3,000 UNIT; Start 09/01/18 at 12:30 Sucralfate (Carafate Susp) 1 gm QID PO Last administered on 09/04/18at 21:12; Admin Dose 1 GM; Start 09/01/18 at 16:00 Pantoprazole (Protonix Iv) 40 mg BID@06,18 IV Last administered on 09/05/18at 05:28; Admin Dose 40 MG; Start 09/01/18 at 18:00 Insulin Aspart (Novolog Insulin Pen) (Adult SC Insulin - Mild Algorithm)... AC MEALS AND BEDTIME SC ; Start 09/03/18 at 07:00 Vancomycin HCl 250 ml @ 125 mls/hr Q96H IVPB ; Start 09/07/18 at 21:00 CINTIA ESPINOSA Sep 05, 2018 10:40
[2018-09-05] MEDS ORDERED: SOD CHLORIDE 0.9% 250 ML IV* ONE (11:33)
--- NOTE | 2018-09-05 12:03 | CONS ---
Assessment/Plan Assessment/Plan Hospital Course A: 33 yo M with uncertain PMH who presents for evaluation of altered mental status UDS + for amphetamines, opioids, EtOH, cannabis Of note, he was reported to be severely hypoglycemic in the field. JULIAN+ Clinically consistent with an acute and multifactorial toxic-metabolic encephalopathy. Stroke is unlikely. Seizure is unlikely. CTH (08/20) was unrevealing. Repeat CTH was most notable for bilateral globus pallidus edema MRI is notable for sequelae of a toxic-metabolic insult.. P: Cont medical management per primary Reorient as necessary Limit sedating medications where possible PT/OT as tolerated Will follow clinically Result Diagram: 09/05/18 0531 09/05/18 0531 Results 24hrs Laboratory Tests Test 09/04/18 12:58 09/04/18 14:30 09/04/18 17:30 09/04/18 21:10 Bedside Glucose 123 116 88 Sodium Level 133 L Potassium Level 5.4 H Chloride Level 95 L Carbon Dioxide 25 Level Anion Gap 13 Blood Urea 76 H Nitrogen Creatinine 7.06 H Est Glomerular 9 L Filtrat Rate mL/min Glucose Level 122 Calcium Level 8.6 Total Bilirubin 0.1 L Direct Bilirubin 0.00 Indirect 0.1 Bilirubin Aspartate Amino 50 H Transf (AST/SGOT ) Alanine 135 H Aminotransferase (ALT/SGPT) Alkaline 61 Phosphatase Total Protein 5.8 L Albumin 2.9 L Globulin 2.90 Albumin/Globulin 1.00 Ratio Test 09/05/18 05:31 09/05/18 07:53 White Blood 12.8 H Count Red Blood Count 2.30 L Hemoglobin 7.4 L Hematocrit 22.1 L Mean Corpuscular 96.1 Volume Mean Corpuscular 32.2 Hemoglobin Mean Corpuscular 33.5 Hemoglobin Monica nt Red Cell 13.3 Distribution Width Platelet Count 473 H Mean Platelet 10.7 H Volume Immature 1.300 H Granulocytes % Neutrophils % 74.6 Lymphocytes % 9.1 L Monocytes % 9.2 Eosinophils % 5.1 Basophils % 0.7 Nucleated Red 0.0 Blood Cells % Immature 0.170 H Granulocytes # Neutrophils # 9.5 H Lymphocytes # 1.2 Monocytes # 1.2 H Eosinophils # 0.7 H Basophils # 0.1 Nucleated Red 0.0 Blood Cells # Sodium Level 138 Potassium Level 4.7 Chloride Level 96 L Carbon Dioxide 25 Level Anion Gap 17 H Blood Urea 91 H Nitrogen Creatinine 7.59 H Est Glomerular 8 L Filtrat Rate mL/min Glucose Level 104 Calcium Level 8.7 Phosphorus Level 11.2 H Total Bilirubin 0.2 Direct Bilirubin 0.00 Indirect 0.2 Bilirubin Aspartate Amino 45 Transf (AST/SGOT ) Alanine 121 H Aminotransferase (ALT/SGPT) Alkaline 58 Phosphatase Total Protein 5.8 L Albumin 2.8 L Globulin 3.00 Albumin/Globulin 0.93 Ratio Bedside Glucose 101 Consultation Date/Type/Reason Admit Date/Time Aug 20, 2018 at 21:39 Type of Consult Neurology Reason for Consultation lethargy/weakness Requesting Provider: YUMIKO JC MD Date/Time of Note DATE: 09/05/18 TIME: 12:02 24 HR Interval Summary Free Text/Dictation Continues medsurg monitoring. Awaiting colonoscopy today. Pt continues to endorse general weakness Exam Vital Signs Vitals Vital Signs Date Temp Pulse Resp B/P (MAP) Pulse Ox O2 O2 Flow FiO2 Time Delivery Rate 09/05/18 77 18 132/85 100 Nasal 2.0 09:40 (101) Cannula 09/05/18 97.3 07:45 Intake and Output 09/04/18 09/04/18 09/05/18 1515:00 23:00 07:00 IntakeIntake Total 960 ml 480 ml 480 ml OutputOutput Total 200 ml 1350 ml 1000 ml BalanceBalance 760 ml -870 ml -520 ml Exam PE: Gen Appearance: No Apparent Distress HEENT: Normocephalic Cardiovascular: Regular rate Lungs: Clear bilaterally Abdomen: Soft Extremities: Dry; BL hands edematous NE: The patient was awake and alert. Somewhat disoriented. Language was normal but forced. Fund of knowledge was adequate. Cranial nerve exam was limited by pt participation. Pupils were equal and reactive to light. No afferent pupillary defect noted. EOMi. Funduscopic examination was limited. Face was symmetric with normal strength. Hearing was intact. Tone was normal. Muscle bulk was normal. I did not see fasciculations. Arms and legs were severely weak and symmetric. Vibration sensation was normal. Temperature and pinprick sensation was normal. Coordination was limited d/t mental status. Gait was deferred due to bedrest. Arm and leg reflexes were symmetric. Phillips's sign was absent. Plantar responses were flexor. TIN GUIDO ANIMAL TECH Sep 05, 2018 12:02 GEOVANNI BANKS Sep 05, 2018 20:34
--- NOTE | 2018-09-05 12:23 | CONS ---
Date/Time of Note Date/Time of Note DATE: 09/05/18 TIME: 12:18 Assessment/Plan Assessment/Plan Assessment/Plan # JULIAN Due to rhabdomyolysis/ATN Urine output much improved Still fluid overloaded HD today # Encephalopathy Neurology evaluation noted Metabolic encephalopathy # Anemia Hb trending down Continue SUKHJINDER Monitor Transfuse for Hb < 7.0 # Respiratory failure Resolved # Drug abuse # ?GIB scheduled for colonoscopy today Result Diagram: 09/05/18 0531 09/05/18 0531 Results 24hrs Laboratory Tests Test 09/04/18 12:58 09/04/18 14:30 09/04/18 17:30 09/04/18 21:10 Bedside Glucose 123 116 88 Sodium Level 133 L Potassium Level 5.4 H Chloride Level 95 L Carbon Dioxide 25 Level Anion Gap 13 Blood Urea 76 H Nitrogen Creatinine 7.06 H Est Glomerular 9 L Filtrat Rate mL/min Glucose Level 122 Calcium Level 8.6 Total Bilirubin 0.1 L Direct Bilirubin 0.00 Indirect 0.1 Bilirubin Aspartate Amino 50 H Transf (AST/SGOT ) Alanine 135 H Aminotransferase (ALT/SGPT) Alkaline 61 Phosphatase Total Protein 5.8 L Albumin 2.9 L Globulin 2.90 Albumin/Globulin 1.00 Ratio Test 09/05/18 05:31 09/05/18 07:53 White Blood 12.8 H Count Red Blood Count 2.30 L Hemoglobin 7.4 L Hematocrit 22.1 L Mean Corpuscular 96.1 Volume Mean Corpuscular 32.2 Hemoglobin Mean Corpuscular 33.5 Hemoglobin Monica nt Red Cell 13.3 Distribution Width Platelet Count 473 H Mean Platelet 10.7 H Volume Immature 1.300 H Granulocytes % Neutrophils % 74.6 Lymphocytes % 9.1 L Monocytes % 9.2 Eosinophils % 5.1 Basophils % 0.7 Nucleated Red 0.0 Blood Cells % Immature 0.170 H Granulocytes # Neutrophils # 9.5 H Lymphocytes # 1.2 Monocytes # 1.2 H Eosinophils # 0.7 H Basophils # 0.1 Nucleated Red 0.0 Blood Cells # Sodium Level 138 Potassium Level 4.7 Chloride Level 96 L Carbon Dioxide 25 Level Anion Gap 17 H Blood Urea 91 H Nitrogen Creatinine 7.59 H Est Glomerular 8 L Filtrat Rate mL/min Glucose Level 104 Calcium Level 8.7 Phosphorus Level 11.2 H Total Bilirubin 0.2 Direct Bilirubin 0.00 Indirect 0.2 Bilirubin Aspartate Amino 45 Transf (AST/SGOT ) Alanine 121 H Aminotransferase (ALT/SGPT) Alkaline 58 Phosphatase Total Protein 5.8 L Albumin 2.8 L Globulin 3.00 Albumin/Globulin 0.93 Ratio Bedside Glucose 101 Consultation Date/Type/Reason Admit Date/Time Aug 20, 2018 at 21:39 Initial Consult Date 09/01/18 Type of Consult Nephrology Requesting Provider: YUMIKO JC MD 24 HR Interval Summary Free Text/Dictation Alert, responsive. Answering simple questions. Exam/Review of Systems Vital Signs Vitals Vital Signs Date Temp Pulse Resp B/P (MAP) Pulse Ox O2 O2 Flow FiO2 Time Delivery Rate 09/05/18 77 18 132/85 100 Nasal 2.0 09:40 (101) Cannula 09/05/18 97.3 07:45 Intake and Output 09/04/18 09/04/18 09/05/18 1515:00 23:00 07:00 IntakeIntake Total 960 ml 480 ml 480 ml OutputOutput Total 200 ml 1350 ml 1000 ml BalanceBalance 760 ml -870 ml -520 ml Exam Constitutional: alert Head: normocephalic Neck: No jvd Respiratory: clear to auscultation Cardiovascular: regular rate and rhythm Gastrointestinal: soft, non-tender Extremities: edema (bilateral upper ext edema) Medications Medications Current Medications Albuterol (Ventolin Hfa) 4 puff Q2H RESP THERAPY PRN INH SHORTNESS OF BREATH; Start 08/20/18 at 22:00 Ipratropium [place] (Atrovent Hfa) 4 puff Q2H RESP THERAPY PRN INH SHORTNESS OF BREATH; Start 08/20/18 at 22:00 Acetaminophen (Tylenol Liquid) 650 mg Q6H PRN PO PAIN LEVEL 1-3 OR FEVER Last administered on 09/02/18at 17:26; Admin Dose 650 MG; Start 08/20/18 at 22:00 Miscellaneous Information 1 ea NOTE XX ; Start 08/21/18 at 16:30 Glucose (Glutose) 15 gm Q15M PRN PO DECREASED GLUCOSE; Start 08/21/18 at 16:30 Glucose (Glutose) 22.5 gm Q15M PRN PO DECREASED GLUCOSE; Start 08/21/18 at 16:30 Dextrose (D50w Syringe) 25 ml Q15M PRN IV DECREASED GLUCOSE; Start 08/21/18 at 16:30 Dextrose (D50w Syringe) 50 ml Q15M PRN IV DECREASED GLUCOSE; Start 08/21/18 at 16:30 Glucagon (Glucagen) 1 mg Q15M PRN IM DECREASED GLUCOSE; Start 08/21/18 at 16:30 Glucose (Glutose) 15 gm Q15M PRN BUCCAL DECREASED GLUCOSE; Start 08/21/18 at 16:30 Metoprolol Tartrate (Lopressor) 25 mg BID PO Last administered on 09/04/18at 21:13; Admin Dose 25 MG; Start 08/23/18 at 21:00 Epinephrine (Racepinephrine 2.25% (Neb)) 0.25 ml Q3H RESP THERAPY PRN HHN STRIDOR; Start 08/23/18 at 17:00 Ondansetron HCl (Zofran Inj) 4 mg Q6H PRN IV NAUSEA AND/OR VOMITING Last administered on 08/25/18at 21:47; Admin Dose 4 MG; Start 08/25/18 at 21:30 Diagnostic Test (Pha) (Accu-Chek) XX ; Start 08/27/18 at 02:00 Vancomycin HCl (Vanco Iv Per Pharmacy) VANCOMYCIN PER PHARMACY PER PROTOCOL XX ; Start 08/27/18 at 11:30 Heparin Sodium (Porcine) (Heparin (5000 Units/1ml)) 5,000 unit Q8 SC Last administered on 09/01/18at 14:27; Admin Dose 5,000 UNIT; Start 08/29/18 at 14:00; Status Hold Epoetin Isacc (Epogen (Non Esrd/Non Oncology)) 10,000 units MoWeFr@17 SC Last administered on 09/02/18at 17:27; Admin Dose 10,000 UNITS; Start 08/29/18 at 17:00 Albumin Human 50 ml @ 100 mls/hr DURING DIALYSIS PRN IV During HD. Last administered on 08/29/18at 13:55; Admin Dose 100 MLS/HR; Start 08/29/18 at 12:30 Aspirin (Aspirin) 81 mg DAILY PO Last administered on 09/03/18at 08:37; Admin Dose 81 MG; Start 08/30/18 at 09:00; Status Hold Calcium Acetate (Phoslo) 1,334 mg WITH MEALS GTB Last administered on 09/04/18at 17:32; Admin Dose 1,334 MG; Start 08/31/18 at 12:00 Albumin Human 100 ml @ 100 mls/hr WITH DIALYSIS IV Last administered on 09/01/18at 11:59; Admin Dose 100 MLS/HR; Start 09/01/18 at 10:30 Heparin Sodium (Porcine) (Heparin (1000 Units/ml)) 3,000 unit AFTER DIALYSIS CATHETER Last administered on 09/05/18at 10:12; Admin Dose 3,000 UNIT; Start 09/01/18 at 12:30 Sucralfate (Carafate Susp) 1 gm QID PO Last administered on 09/04/18at 21:12; Admin Dose 1 GM; Start 09/01/18 at 16:00 Pantoprazole (Protonix Iv) 40 mg BID@06,18 IV Last administered on 09/05/18at 05:28; Admin Dose 40 MG; Start 09/01/18 at 18:00 Insulin Aspart (Novolog Insulin Pen) (Adult SC Insulin - Mild Algorithm)... AC MEALS AND BEDTIME SC ; Start 09/03/18 at 07:00 Vancomycin HCl 250 ml @ 125 mls/hr Q96H IVPB ; Start 09/07/18 at 21:00 JOY PEREZ MD Sep 05, 2018 12:23
[2018-09-05] MEDS ORDERED: PROPOFOL 20 ML ONE (12:53)
--- NOTE | 2018-09-05 12:57 | HPN ---
Date/Time of Note Date/Time of Note DATE: 09/05/18 TIME: 12:57 Interval H&P Admission Note Pt. seen H&P reviewed: No system changes HARVEY SHARP Sep 05, 2018 12:57
--- NOTE | 2018-09-05 13:52 | CONS ---
Date/Time of Note Date/Time of Note DATE: 09/05/18 TIME: 13:48 Assessment/Plan Assessment/Plan Hospital Course ID PROGRESS NOTE CURRENT ABX: DAY # => Vanco IV 24H INTERVAL SUMMARY * WBC downtrending, no fevers, awake --- to continue HD al least thru this week * EGD: Stomach, biopsy: * -- Antral mucosa showing moderate chronic gastritis and benign lymphoid aggregate. * -- No Helicobacter pylori is identified in Giemsa stain (positive control concurrently reviewed). * -- No evidence of intestinal metaplasia, dysplasia or malignancy. * Indwelling: Right femoral Saurabh, Suh MICRO * (-) MRSA on admission * (-)Urine * BCx(-) and CVC Tip * 08/27/18 BCx (+) Organism 1 COAGULASE NEGATIVE STAPH COAG NEG M.I.C. RX --------- --- CEFAZOLIN S CIPROFLOXACIN <=0.5 S CLINDAMYCIN <=0.25 S DOXYCYCLINE S ERYTHROMYCIN <=0.25 S LEVOFLOXACIN <=0.12 S OXACILLIN <=0.25 S PENICILLIN-G >=0.5 R RIFAMPIN <=0.5 S VANCOMYCIN 1 S TRIMETHOPRIM/SULFAMETHOXAZOLE <=10 S PHYSICAL EXAMINATION: GENERAL: Afebrile, VSS, HEENT: AT, NC, anicteric NECK: Supple, trach CHEST: Equal chest rise bilaterally, without dyspnea on observation HEART: Pulse RRR ABDOMEN: Soft / NT EXTREMITIES: Warm, dry SKIN: No rash, no diaphoresis ID ASSESSMENT 33 yo M admit with: 1. Leukocytosis, s/p fevers ==> improving 2. Gram-positive cocci bacteremia, possibly line sepsis, s/p TLC dc'd 3. Status post acute encephalopathy 4. Status post acute hypoxemic respiratory failure 5. Pulmonary edema 6. Acute renal failure, on hemodialysis 7. Severe anasarca 8. History of polysubstance abuse 9. Muscle weakness 10. Anemia (-)MRSA Nares ABX ALLERGIES: NKDA INVASIVES: PI CURRENT ABX: DAY == Vanco IV ID RECOMMENDATIONS/PLAN: Continue current ABX -- Fem Saurabh Line Salvage per Renal recs . Result Diagram: 09/05/18 0531 09/05/18 0531 Results 24hrs Laboratory Tests Test 09/04/18 14:30 09/04/18 17:30 09/04/18 21:10 09/05/18 05:31 Sodium Level 133 L 138 Potassium Level 5.4 H 4.7 Chloride Level 95 L 96 L Carbon Dioxide 25 25 Level Anion Gap 13 17 H Blood Urea 76 H 91 H Nitrogen Creatinine 7.06 H 7.59 H Est Glomerular 9 L 8 L Filtrat Rate mL/min Glucose Level 122 104 Calcium Level 8.6 8.7 Total Bilirubin 0.1 L 0.2 Direct Bilirubin 0.00 0.00 Indirect 0.1 0.2 Bilirubin Aspartate Amino 50 H 45 Transf (AST/SGOT ) Alanine 135 H 121 H Aminotransferase (ALT/SGPT) Alkaline 61 58 Phosphatase Total Protein 5.8 L 5.8 L Albumin 2.9 L 2.8 L Globulin 2.90 3.00 Albumin/Globulin 1.00 0.93 Ratio Bedside Glucose 116 88 White Blood 12.8 H Count Red Blood Count 2.30 L Hemoglobin 7.4 L Hematocrit 22.1 L Mean Corpuscular 96.1 Volume Mean Corpuscular 32.2 Hemoglobin Mean Corpuscular 33.5 Hemoglobin Monica nt Red Cell 13.3 Distribution Width Platelet Count 473 H Mean Platelet 10.7 H Volume Immature 1.300 H Granulocytes % Neutrophils % 74.6 Lymphocytes % 9.1 L Monocytes % 9.2 Eosinophils % 5.1 Basophils % 0.7 Nucleated Red 0.0 Blood Cells % Immature 0.170 H Granulocytes # Neutrophils # 9.5 H Lymphocytes # 1.2 Monocytes # 1.2 H Eosinophils # 0.7 H Basophils # 0.1 Nucleated Red 0.0 Blood Cells # Phosphorus Level 11.2 H Test 09/05/18 07:53 Bedside Glucose 101 Consultation Date/Type/Reason Admit Date/Time Aug 20, 2018 at 21:39 Initial Consult Date 09/01/18 Requesting Provider: YUMIKO JC MD Exam/Review of Systems Vital Signs Vitals Vital Signs Date Temp Pulse Resp B/P (MAP) Pulse Ox O2 O2 Flow FiO2 Time Delivery Rate 09/05/18 88 19 113/71 98 Room Air 13:30 (85) 09/05/18 6.0 13:06 09/05/18 97.3 07:45 Intake and Output 09/04/18 09/04/18 09/05/18 1515:00 23:00 07:00 IntakeIntake Total 960 ml 480 ml 480 ml OutputOutput Total 200 ml 1350 ml 1000 ml BalanceBalance 760 ml -870 ml -520 ml Medications Medications Current Medications Albuterol (Ventolin Hfa) 4 puff Q2H RESP THERAPY PRN INH SHORTNESS OF BREATH; Start 08/20/18 at 22:00 Ipratropium [place] (Atrovent Hfa) 4 puff Q2H RESP THERAPY PRN INH SHORTNESS OF BREATH; Start 08/20/18 at 22:00 Acetaminophen (Tylenol Liquid) 650 mg Q6H PRN PO PAIN LEVEL 1-3 OR FEVER Last administered on 09/02/18at 17:26; Admin Dose 650 MG; Start 08/20/18 at 22:00 Miscellaneous Information 1 ea NOTE XX ; Start 08/21/18 at 16:30 Glucose (Glutose) 15 gm Q15M PRN PO DECREASED GLUCOSE; Start 08/21/18 at 16:30 Glucose (Glutose) 22.5 gm Q15M PRN PO DECREASED GLUCOSE; Start 08/21/18 at 16:30 Dextrose (D50w Syringe) 25 ml Q15M PRN IV DECREASED GLUCOSE; Start 08/21/18 at 16:30 Dextrose (D50w Syringe) 50 ml Q15M PRN IV DECREASED GLUCOSE; Start 08/21/18 at 16:30 Glucagon (Glucagen) 1 mg Q15M PRN IM DECREASED GLUCOSE; Start 08/21/18 at 16:30 Glucose (Glutose) 15 gm Q15M PRN BUCCAL DECREASED GLUCOSE; Start 08/21/18 at 16:30 Metoprolol Tartrate (Lopressor) 25 mg BID PO Last administered on 09/04/18at 21:13; Admin Dose 25 MG; Start 08/23/18 at 21:00 Epinephrine (Racepinephrine 2.25% (Neb)) 0.25 ml Q3H RESP THERAPY PRN HHN STRIDOR; Start 08/23/18 at 17:00 Ondansetron HCl (Zofran Inj) 4 mg Q6H PRN IV NAUSEA AND/OR VOMITING Last administered on 08/25/18at 21:47; Admin Dose 4 MG; Start 08/25/18 at 21:30 Diagnostic Test (Pha) (Accu-Chek) XX ; Start 08/27/18 at 02:00 Vancomycin HCl (Vanco Iv Per Pharmacy) VANCOMYCIN PER PHARMACY PER PROTOCOL XX ; Start 08/27/18 at 11:30 Heparin Sodium (Porcine) (Heparin (5000 Units/1ml)) 5,000 unit Q8 SC Last administered on 09/01/18at 14:27; Admin Dose 5,000 UNIT; Start 08/29/18 at 14:00; Status Hold Epoetin Isacc (Epogen (Non Esrd/Non Oncology)) 10,000 units MoWeFr@17 SC Last administered on 09/02/18 17:27; Admin Dose 10,000 UNITS; Start 08/29/18 at 17:00 Albumin Human 50 ml @ 100 mls/hr DURING DIALYSIS PRN IV During HD. Last administered on 08/29/18at 13:55; Admin Dose 100 MLS/HR; Start 08/29/18 at 12:30 Aspirin (Aspirin) 81 mg DAILY PO Last administered on 09/03/18at 08:37; Admin Dose 81 MG; Start 08/30/18 at 09:00; Status Hold Calcium Acetate (Phoslo) 1,334 mg WITH MEALS GTB Last administered on 09/04/18at 17:32; Admin Dose 1,334 MG; Start 08/31/18 at 12:00 Heparin Sodium (Porcine) (Heparin (1000 Units/ml)) 3,000 unit AFTER DIALYSIS CATHETER Last administered on 09/05/18at 10:12; Admin Dose 3,000 UNIT; Start 09/01/18 at 12:30 Sucralfate (Carafate Susp) 1 gm QID PO Last administered on 09/04/18at 21:12; Admin Dose 1 GM; Start 09/01/18 at 16:00 Pantoprazole (Protonix Iv) 40 mg BID@06,18 IV Last administered on 09/05/18at 05:28; Admin Dose 40 MG; Start 09/01/18 at 18:00 Insulin Aspart (Novolog Insulin Pen) (Adult SC Insulin - Mild Algorithm)... AC MEALS AND BEDTIME SC ; Start 09/03/18 at 07:00 Vancomycin HCl 250 ml @ 125 mls/hr Q96H IVPB ; Start 09/07/18 at 21:00 ARLIN PIERRE NP Sep 05, 2018 13:52
[2018-09-05] MEDS: ACETAMINOPHEN 650MG/20.3ML CUP PO PRN ×2 (15:02→21:29)
[2018-09-05] MEDS: EPOETIN 10000 UNITS/ML (NON ESRD/NON ONCOLOGY) SC SCH (18:07)
[2018-09-06 02:00] VITALS: BP 118/60; PULSE 85; RESP 19
[2018-09-06] MEDS: ACCU-CHEK XX SCH ×2 (02:00→20:13)
[2018-09-06] MEDS: PANTOPRAZOLE 40 MG INJ IV SCH ×2 (05:08→17:47)
[2018-09-06] MEDS: INSULIN ASPART [NOVOLOG] 3 ML PEN SC SCH ×4 (07:00→20:13)
[2018-09-06 07:28] VITALS: BP 147/86; PULSE 67; RESP 18
[2018-09-06] MEDS: CALCIUM ACETATE 667 MG CAP GTB SCH ×3 (08:42→17:47)
[2018-09-06] MEDS: SUCRALFATE (100 MG/ML) 10ML CUP PO SCH ×4 (08:42→20:10)
[2018-09-06] MEDS: METOPROLOL 25 MG TAB PO SCH ×2 (08:44→20:10)
--- NOTE | 2018-09-06 11:47 | CONS ---
Date/Time of Note Date/Time of Note DATE: 09/06/18 TIME: 11:46 Assessment/Plan Assessment/Plan Assessment/Plan Acute respiratory failure status post extubation Low normal left ventricular ejection fraction 50% Sepsis Acute kidney injury on hemodialysis Myocardial infarction, likely type II Encephalopathy GI bleed Liver dysfunction Illicit drug use -Off aspirin secondary to GI bleed. No statin given abnormal LFTs. Continue beta-kishan as tolerated. Fluid management via hemodialysis as per nephrology Result Diagram: 09/06/18 0700 09/06/18 0700 Results 24hrs Laboratory Tests Test 09/05/18 17:44 09/05/18 21:41 09/06/18 07:00 09/06/18 08:23 Bedside Glucose 104 119 94 White Blood Count 13.3 H Red Blood Count 3.04 #L Hemoglobin 9.5 #L Hematocrit 28.5 #L Mean Corpuscular 93.8 Volume Mean Corpuscular 31.3 Hemoglobin Mean Corpuscular 33.3 Hemoglobin Concent Red Cell 15.3 H Distribution Width Platelet Count 451 H Mean Platelet Volume 10.1 Immature 1.400 H Granulocytes % Neutrophils % 74.5 Lymphocytes % 8.8 L Monocytes % 8.8 Eosinophils % 5.8 Basophils % 0.7 Nucleated Red Blood 0.0 Cells % Immature 0.180 H Granulocytes # Neutrophils # 10.0 H Lymphocytes # 1.2 Monocytes # 1.2 H Eosinophils # 0.8 H Basophils # 0.1 Nucleated Red Blood 0.0 Cells # Sodium Level 137 Potassium Level 4.3 Chloride Level 99 Carbon Dioxide Level 29 Anion Gap 9 # Blood Urea Nitrogen 67 H Creatinine 5.98 H Est Glomerular 11 L Filtrat Rate mL/min Glucose Level 108 Calcium Level 8.8 Consultation Date/Type/Reason Admit Date/Time Aug 20, 2018 at 21:39 Initial Consult Date 08/21/18 Type of Consult cv Requesting Provider: YUMIKO JC MD 24 HR Interval Summary Free Text/Dictation Patient seen and examined Exam/Review of Systems Vital Signs Vitals Vital Signs Date Temp Pulse Resp B/P (MAP) Pulse Ox O2 O2 Flow FiO2 Time Delivery Rate 09/06/18 98.3 67 18 147/86 99 Room Air 07:28 (106) 09/05/18 2.0 20:00 Intake and Output 09/05/18 09/05/18 09/06/18 1515:00 23:00 07:00 IntakeIntake Total 1080 ml 120 ml OutputOutput Total 500 ml BalanceBalance 580 ml 120 ml Exam Sleeping, no apparent distress Head: normocephalic Respiratory: other (Coarse breath sounds bilaterally, no wheezing) Cardiovascular: regular rate and rhythm, other (S1-S2 heard) Gastrointestinal: soft, non-tender, bowel sounds Extremities: edema Medications Medications Current Medications Albuterol (Ventolin Hfa) 4 puff Q2H RESP THERAPY PRN INH SHORTNESS OF BREATH; Start 08/20/18 at 22:00 Ipratropium [place] (Atrovent Hfa) 4 puff Q2H RESP THERAPY PRN INH SHORTNESS OF BREATH; Start 08/20/18 at 22:00 Acetaminophen (Tylenol Liquid) 650 mg Q6H PRN PO PAIN LEVEL 1-3 OR FEVER Last administered on 09/05/18at 21:29; Admin Dose 650 MG; Start 08/20/18 at 22:00 Miscellaneous Information 1 ea NOTE XX ; Start 08/21/18 at 16:30 Glucose (Glutose) 15 gm Q15M PRN PO DECREASED GLUCOSE; Start 08/21/18 at 16:30 Glucose (Glutose) 22.5 gm Q15M PRN PO DECREASED GLUCOSE; Start 08/21/18 at 16:30 Dextrose (D50w Syringe) 25 ml Q15M PRN IV DECREASED GLUCOSE; Start 08/21/18 at 16:30 Dextrose (D50w Syringe) 50 ml Q15M PRN IV DECREASED GLUCOSE; Start 08/21/18 at 16:30 Glucagon (Glucagen) 1 mg Q15M PRN IM DECREASED GLUCOSE; Start 08/21/18 at 16:30 Glucose (Glutose) 15 gm Q15M PRN BUCCAL DECREASED GLUCOSE; Start 08/21/18 at 16:30 Metoprolol Tartrate (Lopressor) 25 mg BID PO Last administered on 09/06/18at 08:44; Admin Dose 25 MG; Start 08/23/18 at 21:00 Epinephrine (Racepinephrine 2.25% (Neb)) 0.25 ml Q3H RESP THERAPY PRN HHN STRIDOR; Start 08/23/18 at 17:00 Ondansetron HCl (Zofran Inj) 4 mg Q6H PRN IV NAUSEA AND/OR VOMITING Last administered on 08/25/18at 21:47; Admin Dose 4 MG; Start 08/25/18 at 21:30 Diagnostic Test (Pha) (Accu-Chek) 1 XX ; Start 08/27/18 at 02:00 Vancomycin HCl (Vanco Iv Per Pharmacy) VANCOMYCIN PER PHARMACY PER PROTOCOL XX ; Start 08/27/18 at 11:30 Heparin Sodium (Porcine) (Heparin (5000 Units/1ml)) 5,000 unit Q8 SC Last administered on 09/01/18at 14:27; Admin Dose 5,000 UNIT; Start 08/29/18 at 14:00; Status Hold Epoetin Isacc (Epogen (Non Esrd/Non Oncology)) 10,000 units MoWeFr@17 SC Last administered on 09/05/18at 18:07; Admin Dose 10,000 UNITS; Start 08/29/18 at 17:00 Albumin Human 50 ml @ 100 mls/hr DURING DIALYSIS PRN IV During HD. Last administered on 08/29/18at 13:55; Admin Dose 100 MLS/HR; Start 08/29/18 at 12:30 Aspirin (Aspirin) 81 mg DAILY PO Last administered on 09/03/18at 08:37; Admin Dose 81 MG; Start 08/30/18 at 09:00; Status Hold Calcium Acetate (Phoslo) 1,334 mg WITH MEALS GTB Last administered on 09/06/18 08:42; Admin Dose 1,334 MG; Start 08/31/18 at 12:00 Heparin Sodium (Porcine) (Heparin (1000 Units/ml)) 3,000 unit AFTER DIALYSIS CATHETER Last administered on 09/05/18at 10:12; Admin Dose 3,000 UNIT; Start 09/01/18 at 12:30 Sucralfate (Carafate Susp) 1 gm QID PO Last administered on 09/06/18 08:42; Admin Dose 1 GM; Start 09/01/18 at 16:00 Pantoprazole (Protonix Iv) 40 mg BID@06,18 IV Last administered on 09/06/18 05:08; Admin Dose 40 MG; Start 09/01/18 at 18:00 Insulin Aspart (Novolog Insulin Pen) (Adult SC Insulin - Mild Algorithm)... AC MEALS AND BEDTIME SC ; Start 09/03/18 at 07:00 Vancomycin HCl 250 ml @ 125 mls/hr Q96H IVPB ; Start 09/07/18 at 21:00 Kana Phoenix DO Sep 06, 2018 11:47
[2018-09-06] MEDS: ACETAMINOPHEN 650MG/20.3ML CUP PO PRN ×2 (12:07→20:11)
--- NOTE | 2018-09-06 12:46 | CONS ---
Assessment/Plan Assessment/Plan Hospital Course A: 33 yo M with uncertain PMH who presents for evaluation of altered mental status UDS + for amphetamines, opioids, EtOH, cannabis Of note, he was reported to be severely hypoglycemic in the field. JULIAN+ Clinically consistent with an acute and multifactorial toxic-metabolic encephalopathy. Stroke is unlikely. Seizure is unlikely. CTH (08/20) was unrevealing. Repeat CTH was most notable for bilateral globus pallidus edema MRI is notable for sequelae of a toxic-metabolic insult.. P: Cont medical management per primary Reorient as necessary Limit sedating medications where possible PT/OT as tolerated Will follow clinically Result Diagram: 09/06/18 0700 09/06/18 0700 Results 24hrs Laboratory Tests Test 09/05/18 17:44 09/05/18 21:41 09/06/18 07:00 09/06/18 08:23 Bedside Glucose 104 119 94 White Blood Count 13.3 H Red Blood Count 3.04 #L Hemoglobin 9.5 #L Hematocrit 28.5 #L Mean Corpuscular 93.8 Volume Mean Corpuscular 31.3 Hemoglobin Mean Corpuscular 33.3 Hemoglobin Concent Red Cell 15.3 H Distribution Width Platelet Count 451 H Mean Platelet Volume 10.1 Immature 1.400 H Granulocytes % Neutrophils % 74.5 Lymphocytes % 8.8 L Monocytes % 8.8 Eosinophils % 5.8 Basophils % 0.7 Nucleated Red Blood 0.0 Cells % Immature 0.180 H Granulocytes # Neutrophils # 10.0 H Lymphocytes # 1.2 Monocytes # 1.2 H Eosinophils # 0.8 H Basophils # 0.1 Nucleated Red Blood 0.0 Cells # Sodium Level 137 Potassium Level 4.3 Chloride Level 99 Carbon Dioxide Level 29 Anion Gap 9 # Blood Urea Nitrogen 67 H Creatinine 5.98 H Est Glomerular 11 L Filtrat Rate mL/min Glucose Level 108 Calcium Level 8.8 Test 09/06/18 12:07 Bedside Glucose 126 Consultation Date/Type/Reason Admit Date/Time Aug 20, 2018 at 21:39 Type of Consult Neurology Reason for Consultation lethargy/weakness Requesting Provider: YUMIKO JC MD Date/Time of Note DATE: 09/06/18 TIME: 12:45 24 HR Interval Summary Free Text/Dictation Continues medsurg monitoring. No acute events reported. Pt states that he still feels weak but is doing a little better today. Exam Vital Signs Vitals Vital Signs Date Temp Pulse Resp B/P (MAP) Pulse Ox O2 O2 Flow FiO2 Time Delivery Rate 09/06/18 98.3 67 18 147/86 99 Room Air 07:28 (106) 09/05/18 2.0 20:00 Intake and Output 09/05/18 09/05/18 09/06/18 1515:00 23:00 07:00 IntakeIntake Total 1080 ml 120 ml OutputOutput Total 500 ml BalanceBalance 580 ml 120 ml Exam PE: Gen Appearance: No Apparent Distress HEENT: Normocephalic Cardiovascular: Regular rate Lungs: Clear bilaterally Abdomen: Soft Extremities: Dry; BL hands edematous NE: The patient was awake and alert. Somewhat disoriented. Language was normal but forced. Fund of knowledge was adequate. Cranial nerve exam was limited by pt participation. Pupils were equal and reactive to light. No afferent pupillary defect noted. EOMi. Funduscopic examination was limited. Face was symmetric with normal strength. Hearing was intact. Tone was normal. Muscle bulk was normal. I did not see fasciculations. Arms and legs were severely weak and symmetric. Vibration sensation was normal. Temperature and pinprick sensation was normal. Coordination was limited d/t mental status. Gait was deferred due to bedrest. Arm and leg reflexes were symmetric. Phillips's sign was absent. Plantar responses were flexor. TIN GUIDO NP Sep 06, 2018 12:46
--- NOTE | 2018-09-06 13:21 | PN ---
Date/Time of Note Date/Time of Note DATE: 09/06/18 TIME: 13:14 Assessment/Plan VTE Prophylaxis Risk score (from Nsg)>0 risk: 4 SCD applied (from Nsg): Yes Pharmacological prophylaxis: other Lines/Catheters IV Catheter Type (from Nrsg): Saurabh Cath Urinary Cath still in place: Yes Reason Cath still needed: urinary retention Assessment/Plan Hospital Course S: Patient had dialysis, blood transfusion, and colonoscopy yesterday. Tolerating diet presently. O: VS - see below PE: Gen: Lying in bed, no acute distress, NG tube in place Eyes: Pupils equal round reactive to light, extraocular muscles intact HEENT: ET tube in place, moist mucous membranes, Card: Regular rate and rhythm no murmurs Pulm: Mechanical breath sounds bilaterally, no crackles. Abd: Soft, nondistended. Ext: No cyanosis/clubbing/edema Skin: Large fluid-filled bulla R medial thigh. : Suh in place with minimal urine output. Assessment/Plan: 33 yo man brought in found down with subsequent JULIAN secondary to rhabdomyolysis; positive for alcohol, methamphetamine, cannabis, opioids as well. # Renal failure- Oliguric renal failure with hyperkalemia (after potassium replacement), also presented with severe metabolic acidosis- Likely due to a com bination of rhabdo and drug use. CK levels normal now, but patient presently dialysis dependent. - Continue dialysis per renal recommendations #Hematochezia- Nurse reported maroon colored stool on 09/01- EGD 09/02 only with mild gastritis and distal esophagitis- MD witnessed maroon colored, grainy stool on 09/03. Rectal exam negative for external hemorrhoids or palpable internal hemorrhoids. -For now continue PPI BID and carafate -Monitor hemoglobin, improved to 9.4 today after 2 units PRBC given yesterday. -Follow-up final results of colonoscopy performed yesterday; GI following. #Encephalopathy and Polyneuropathy- Despite extubation on 08/24, he remains lethargic and weak.- Head CT 08/20 negative- Repeat CT on 08/31 shows some edema of the basal ganglia, confirmed on MRI, this likely represents residual toxic metabolic effect - TSH, ammonia, AM cortisol are normal. 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 It does not respond to steroids. -Monitor, follow-up recommendations from neurology - following. #Bacteremia- Had fever on 08/27 - Blood culture (x1 unfortunately) from that day is growing coag negative staph, a common contaminant. Repeat blood culture negative.- D/Matias right IJ. But his femoral dialysis catheter may also be a source of infection. - Currently on vanco per ID, continue for now - Follow-up ID recommendations # acute respiratory failure- extubated 08/24, was likely secondary to polysubstance overdose resulting in multiorgan dysfunction; patient had subsequent severe metabolic acidosis with inadequate respiratory compensation- now oxygen levels stable on nasal cannula supplementation-s/p course of zosyn for CAP- Now on minimal nasal cannula. -Monitor, continue oxygen supplementation as needed # Elevated troponin-now appears stable- CV consulted earlier this admission. Likely demand ischemia from drug use. - Will not treat per NSTEMI protocol, monitor, follow-up cardiology recommendations # transaminitis: - May be from shock liver or drug use.- Hep B, Hep C negative. LFTs have trended down. # Rhabdomyolysis - resolved # Coagulopathy- May be due to liver and renal injury as well as drug use- No DIC. Resolved. # polysubstance abuse - Again patient was found to be positive for opioids, methamphetamine, marijuana and an elevated blood alcohol level. -Earlier this admission ordered for thiamine 300 mg IM daily times 3 days, further treatment as per the clinical course # DVT and GI prophylaxis: Protonix twice daily Result Diagram: 09/06/18 0700 09/06/18 0700 Results 24hrs Laboratory Tests Test 09/05/18 17:44 09/05/18 21:41 09/06/18 07:00 09/06/18 08:23 Bedside Glucose 104 119 94 White Blood Count 13.3 H Red Blood Count 3.04 #L Hemoglobin 9.5 #L Hematocrit 28.5 #L Mean Corpuscular 93.8 Volume Mean Corpuscular 31.3 Hemoglobin Mean Corpuscular 33.3 Hemoglobin Concent Red Cell 15.3 H Distribution Width Platelet Count 451 H Mean Platelet Volume 10.1 Immature 1.400 H Granulocytes % Neutrophils % 74.5 Lymphocytes % 8.8 L Monocytes % 8.8 Eosinophils % 5.8 Basophils % 0.7 Nucleated Red Blood 0.0 Cells % Immature 0.180 H Granulocytes # Neutrophils # 10.0 H Lymphocytes # 1.2 Monocytes # 1.2 H Eosinophils # 0.8 H Basophils # 0.1 Nucleated Red Blood 0.0 Cells # Sodium Level 137 Potassium Level 4.3 Chloride Level 99 Carbon Dioxide Level 29 Anion Gap 9 # Blood Urea Nitrogen 67 H Creatinine 5.98 H Est Glomerular 11 L Filtrat Rate mL/min Glucose Level 108 Calcium Level 8.8 Test 09/06/18 12:07 Bedside Glucose 126 Exam/Review of Systems Vital Signs Vitals Vital Signs Date Temp Pulse Resp B/P (MAP) Pulse Ox O2 O2 Flow FiO2 Time Delivery Rate 09/06/18 98.3 67 18 147/86 99 Room Air 07:28 (106) 09/05/18 2.0 20:00 Intake and Output 09/05/18 09/05/18 09/06/18 1515:00 23:00 07:00 IntakeIntake Total 1080 ml 120 ml OutputOutput Total 500 ml BalanceBalance 580 ml 120 ml Medications Medications Current Medications Albuterol (Ventolin Hfa) 4 puff Q2H RESP THERAPY PRN INH SHORTNESS OF BREATH; Start 08/20/18 at 22:00 Ipratropium [place] (Atrovent Hfa) 4 puff Q2H RESP THERAPY PRN INH SHORTNESS OF BREATH; Start 08/20/18 at 22:00 Acetaminophen (Tylenol Liquid) 650 mg Q6H PRN PO PAIN LEVEL 1-3 OR FEVER Last administered on 09/06/18at 12:07; Admin Dose 650 MG; Start 08/20/18 at 22:00 Miscellaneous Information 1 ea NOTE XX ; Start 08/21/18 at 16:30 Glucose (Glutose) 15 gm Q15M PRN PO DECREASED GLUCOSE; Start 08/21/18 at 16:30 Glucose (Glutose) 22.5 gm Q15M PRN PO DECREASED GLUCOSE; Start 08/21/18 at 16:30 Dextrose (D50w Syringe) 25 ml Q15M PRN IV DECREASED GLUCOSE; Start 08/21/18 at 16:30 Dextrose (D50w Syringe) 50 ml Q15M PRN IV DECREASED GLUCOSE; Start 08/21/18 at 16:30 Glucagon (Glucagen) 1 mg Q15M PRN IM DECREASED GLUCOSE; Start 08/21/18 at 16:30 Glucose (Glutose) 15 gm Q15M PRN BUCCAL DECREASED GLUCOSE; Start 08/21/18 at 16:30 Metoprolol Tartrate (Lopressor) 25 mg BID PO Last administered on 09/06/18 08:44; Admin Dose 25 MG; Start 08/23/18 at 21:00 Epinephrine (Racepinephrine 2.25% (Neb)) 0.25 ml Q3H RESP THERAPY PRN HHN STRIDOR; Start 08/23/18 at 17:00 Ondansetron HCl (Zofran Inj) 4 mg Q6H PRN IV NAUSEA AND/OR VOMITING Last administered on 08/25/18at 21:47; Admin Dose 4 MG; Start 08/25/18 at 21:30 Diagnostic Test (Pha) (Accu-Chek) 1 ea 02 XX ; Start 08/27/18 at 02:00 Vancomycin HCl (Vanco Iv Per Pharmacy) VANCOMYCIN PER PHARMACY PER PROTOCOL XX ; Start 08/27/18 at 11:30 Heparin Sodium (Porcine) (Heparin (5000 Units/1ml)) 5,000 unit Q8 SC Last administered on 09/01/18at 14:27; Admin Dose 5,000 UNIT; Start 08/29/18 at 14:00; Status Hold Epoetin Isacc (Epogen (Non Esrd/Non Oncology)) 10,000 units MoWeFr@17 SC Last administered on 09/05/18at 18:07; Admin Dose 10,000 UNITS; Start 08/29/18 at 17:00 Albumin Human 50 ml @ 100 mls/hr DURING DIALYSIS PRN IV During HD. Last administered on 08/29/18at 13:55; Admin Dose 100 MLS/HR; Start 08/29/18 at 12:30 Aspirin (Aspirin) 81 mg DAILY PO Last administered on 09/03/18at 08:37; Admin Dose 81 MG; Start 08/30/18 at 09:00; Status Hold Calcium Acetate (Phoslo) 1,334 mg WITH MEALS GTB Last administered on 09/06/18 12:07; Admin Dose 1,334 MG; Start 08/31/18 at 12:00 Heparin Sodium (Porcine) (Heparin (1000 Units/ml)) 3,000 unit AFTER DIALYSIS CATHETER Last administered on 09/05/18at 10:12; Admin Dose 3,000 UNIT; Start 09/01/18 at 12:30 Sucralfate (Carafate Susp) 1 gm QID PO Last administered on 09/06/18at 12:07; Admin Dose 1 GM; Start 09/01/18 at 16:00 Pantoprazole (Protonix Iv) 40 mg BID@06,18 IV Last administered on 09/06/18at 05:08; Admin Dose 40 MG; Start 09/01/18 at 18:00 Insulin Aspart (Novolog Insulin Pen) (Adult SC Insulin - Mild Algorithm)... AC MEALS AND BEDTIME SC ; Start 09/03/18 at 07:00 Vancomycin HCl 250 ml @ 125 mls/hr Q96H IVPB ; Start 09/07/18 at 21:00 CINTIA ESPINOSA Sep 06, 2018 13:21
--- NOTE | 2018-09-06 13:45 | CONS ---
Date/Time of Note Date/Time of Note DATE: 09/06/18 TIME: 13:41 Assessment/Plan Assessment/Plan Assessment/Plan # JULIAN Due to rhabdomyolysis/ATN Urine output good Still fluid overloaded HD done yesterday, 3L UF HD planned for tomorrow # Encephalopathy Neurology evaluation noted Metabolic encephalopathy # Anemia Hb improved Continue SUKHJINDER Monitor Transfuse for Hb < 7.0 # Respiratory failure Resolved # Drug abuse # GIB Colonoscopy done yesterday, rectal ulcer found per nursing report. Result Diagram: 09/06/18 0700 09/06/18 0700 Results 24hrs Laboratory Tests Test 09/05/18 17:44 09/05/18 21:41 09/06/18 07:00 09/06/18 08:23 Bedside Glucose 104 119 94 White Blood Count 13.3 H Red Blood Count 3.04 #L Hemoglobin 9.5 #L Hematocrit 28.5 #L Mean Corpuscular 93.8 Volume Mean Corpuscular 31.3 Hemoglobin Mean Corpuscular 33.3 Hemoglobin Concent Red Cell 15.3 H Distribution Width Platelet Count 451 H Mean Platelet Volume 10.1 Immature 1.400 H Granulocytes % Neutrophils % 74.5 Lymphocytes % 8.8 L Monocytes % 8.8 Eosinophils % 5.8 Basophils % 0.7 Nucleated Red Blood 0.0 Cells % Immature 0.180 H Granulocytes # Neutrophils # 10.0 H Lymphocytes # 1.2 Monocytes # 1.2 H Eosinophils # 0.8 H Basophils # 0.1 Nucleated Red Blood 0.0 Cells # Sodium Level 137 Potassium Level 4.3 Chloride Level 99 Carbon Dioxide Level 29 Anion Gap 9 # Blood Urea Nitrogen 67 H Creatinine 5.98 H Est Glomerular 11 L Filtrat Rate mL/min Glucose Level 108 Calcium Level 8.8 Test 09/06/18 12:07 Bedside Glucose 126 Consultation Date/Type/Reason Admit Date/Time Aug 20, 2018 at 21:39 Initial Consult Date 09/01/18 Type of Consult Nephrology Requesting Provider: YUMIKO JC MD 24 HR Interval Summary Free Text/Dictation Awake, answering simple questions, denies pain Exam/Review of Systems Vital Signs Vitals Vital Signs Date Temp Pulse Resp B/P (MAP) Pulse Ox O2 O2 Flow FiO2 Time Delivery Rate 09/06/18 98.3 67 18 147/86 99 Room Air 07:28 (106) 09/05/18 2.0 20:00 Intake and Output 09/05/18 09/05/18 09/06/18 1515:00 23:00 07:00 IntakeIntake Total 1080 ml 120 ml OutputOutput Total 500 ml BalanceBalance 580 ml 120 ml Exam Head: normocephalic Neck: No jvd Respiratory: clear to auscultation Cardiovascular: regular rate and rhythm Gastrointestinal: soft, non-tender Extremities: edema (bialteral upper ext edema) Medications Medications Current Medications Albuterol (Ventolin Hfa) 4 puff Q2H RESP THERAPY PRN INH SHORTNESS OF BREATH; Start 08/20/18 at 22:00 Ipratropium [place] (Atrovent Hfa) 4 puff Q2H RESP THERAPY PRN INH SHORTNESS OF BREATH; Start 08/20/18 at 22:00 Acetaminophen (Tylenol Liquid) 650 mg Q6H PRN PO PAIN LEVEL 1-3 OR FEVER Last administered on 09/06/18at 12:07; Admin Dose 650 MG; Start 08/20/18 at 22:00 Miscellaneous Information 1 ea NOTE XX ; Start 08/21/18 at 16:30 Glucose (Glutose) 15 gm Q15M PRN PO DECREASED GLUCOSE; Start 08/21/18 at 16:30 Glucose (Glutose) 22.5 gm Q15M PRN PO DECREASED GLUCOSE; Start 08/21/18 at 16:30 Dextrose (D50w Syringe) 25 ml Q15M PRN IV DECREASED GLUCOSE; Start 08/21/18 at 16:30 Dextrose (D50w Syringe) 50 ml Q15M PRN IV DECREASED GLUCOSE; Start 08/21/18 at 16:30 Glucagon (Glucagen) 1 mg Q15M PRN IM DECREASED GLUCOSE; Start 08/21/18 at 16:30 Glucose (Glutose) 15 gm Q15M PRN BUCCAL DECREASED GLUCOSE; Start 08/21/18 at 16:30 Metoprolol Tartrate (Lopressor) 25 mg BID PO Last administered on 09/06/18at 08:44; Admin Dose 25 MG; Start 08/23/18 at 21:00 Epinephrine (Racepinephrine 2.25% (Neb)) 0.25 ml Q3H RESP THERAPY PRN HHN ST RIDOR; Start 08/23/18 at 17:00 Ondansetron HCl (Zofran Inj) 4 mg Q6H PRN IV NAUSEA AND/OR VOMITING Last administered on 08/25/18at 21:47; Admin Dose 4 MG; Start 08/25/18 at 21:30 Diagnostic Test (Pha) (Accu-Chek) 1 XX ; Start 08/27/18 at 02:00 Vancomycin HCl (Vanco Iv Per Pharmacy) VANCOMYCIN PER PHARMACY PER PROTOCOL XX ; Start 08/27/18 at 11:30 Heparin Sodium (Porcine) (Heparin (5000 Units/1ml)) 5,000 unit Q8 SC Last administered on 09/01/18at 14:27; Admin Dose 5,000 UNIT; Start 08/29/18 at 14:00; Status Hold Epoetin Isacc (Epogen (Non Esrd/Non Oncology)) 10,000 units MoWeFr@17 SC Last administered on 09/05/18at 18:07; Admin Dose 10,000 UNITS; Start 08/29/18 at 17:00 Albumin Human 50 ml @ 100 mls/hr DURING DIALYSIS PRN IV During HD. Last administered on 08/29/18at 13:55; Admin Dose 100 MLS/HR; Start 08/29/18 at 12:30 Aspirin (Aspirin) 81 mg DAILY PO Last administered on 09/03/18at 08:37; Admin Dose 81 MG; Start 08/30/18 at 09:00; Status Hold Calcium Acetate (Phoslo) 1,334 mg WITH MEALS GTB Last administered on 09/06/18 12:07; Admin Dose 1,334 MG; Start 08/31/18 at 12:00 Heparin Sodium (Porcine) (Heparin (1000 Units/ml)) 3,000 unit AFTER DIALYSIS CATHETER Last administered on 09/05/18at 10:12; Admin Dose 3,000 UNIT; Start 09/01/18 at 12:30 Sucralfate (Carafate Susp) 1 gm QID PO Last administered on 09/06/18 12:07; Admin Dose 1 GM; Start 09/01/18 at 16:00 Pantoprazole (Protonix Iv) 40 mg BID@06,18 IV Last administered on 09/06/18 05:08; Admin Dose 40 MG; Start 09/01/18 at 18:00 Insulin Aspart (Novolog Insulin Pen) (Adult SC Insulin - Mild Algorithm)... AC MEALS AND BEDTIME SC ; Start 09/03/18 at 07:00 Vancomycin HCl 250 ml @ 125 mls/hr Q96H IVPB ; Start 09/07/18 at 21:00 JOY PEREZ MD Sep 06, 2018 13:45
[2018-09-06 15:09] VITALS: BP 131/77; PULSE 68; RESP 20
--- NOTE | 2018-09-06 18:40 | CONS ---
Date/Time of Note Date/Time of Note DATE: 09/06/18 TIME: 18:33 Assessment/Plan Assessment/Plan Hospital Course ID PROGRESS NOTE CURRENT ABX: DAY # => Vanco IV + start [facility] 09/06/18 0700 09/06/18 0700 24H INTERVAL SUMMARY * NEW WOUND CX RESULT ---- (+)PSAR GROIN no fevers, awake --- to continue HD al least thru this week * EGD: Stomach, biopsy: * -- Antral mucosa showing moderate chronic gastritis and benign lymphoid aggregate. * -- No Helicobacter pylori is identified in Giemsa stain (positive control concurrently reviewed). * -- No evidence of intestinal metaplasia, dysplasia or malignancy. * Indwelling: Right femoral Saurabh, Suh MICRO * 09/05/18 GROIN WOUND CX: WOUND CULTURE Preliminary Organism 1 PSEUDOMONAS SPECIES QUANTITY 3+ * (-) MRSA on admission * (-)Urine * BCx(-) and CVC Tip * 08/27/18 BCx (+) Organism 1 COAGULASE NEGATIVE STAPH COAG NEG M.I.C. RX --------- --- CEFAZOLIN S CIPROFLOXACIN <=0.5 S CLINDAMYCIN <=0.25 S DOXYCYCLINE S ERYTHROMYCIN <=0.25 S LEVOFLOXACIN <=0.12 S OXACILLIN <=0.25 S PENICILLIN-G >=0.5 R RIFAMPIN <=0.5 S VANCOMYCIN 1 S TRIMETHOPRIM/SULFAMETHOXAZOLE <=10 S PHYSICAL EXAMINATION: GENERAL: Afebrile, VSS, HEENT: AT, NC, anicteric NECK: Supple, trach CHEST: Equal chest rise bilaterally, without dyspnea on observation HEART: Pulse RRR ABDOMEN: Soft / NT EXTREMITIES: Warm, dry SKIN: No rash, no diaphoresis ID ASSESSMENT 33 yo M admit with: 1. Leukocytosis, s/p fevers ==> improving * 09/05/18 GROIN WOUND CX: WOUND CULTURE Preliminary Organism 1 PSEUDOMONAS SPECIES QUANTITY 3+ 2. Gram-positive cocci bacteremia, possibly line sepsis, s/p TLC dc'd 3. Status post acute encephalopathy 4. Status post acute hypoxemic respiratory failure 5. Pulmonary edema 6. Acute renal failure, on hemodialysis 7. Severe anasarca 8. History of polysubstance abuse 9. Muscle weakness 10. Anemia (-)MRSA Nares ABX ALLERGIES: NKDA INVASIVES: PI CURRENT ABX: DAY = Vanco IV + [facility] ID RECOMMENDATIONS/PLAN: START [facility] FOR 09/05/18 GROIN WOUND CX: WOUND CULTURE Preliminary Organism 1 PSEUDOMONAS SPECIES QUANTITY 3+ . Result Diagram: 09/06/18 0700 09/06/18 0700 Results 24hrs Laboratory Tests Test 09/05/18 21:41 09/06/18 07:00 09/06/18 08:23 09/06/18 12:07 Bedside Glucose 119 94 126 White Blood Count 13.3 H Red Blood Count 3.04 #L Hemoglobin 9.5 #L Hematocrit 28.5 #L Mean Corpuscular 93.8 Volume Mean Corpuscular 31.3 Hemoglobin Mean Corpuscular 33.3 Hemoglobin Concent Red Cell Distribution 15.3 H Width Platelet Count 451 H Mean Platelet Volume 10.1 Immature Granulocytes 1.400 H % Neutrophils % 74.5 Lymphocytes % 8.8 L Monocytes % 8.8 Eosinophils % 5.8 Basophils % 0.7 Nucleated Red Blood 0.0 Cells % Immature Granulocytes 0.180 H # Neutrophils # 10.0 H Lymphocytes # 1.2 Monocytes # 1.2 H Eosinophils # 0.8 H Basophils # 0.1 Nucleated Red Blood 0.0 Cells # Sodium Level 137 Potassium Level 4.3 Chloride Level 99 Carbon Dioxide Level 29 Anion Gap 9 # Blood Urea Nitrogen 67 H Creatinine 5.98 H Est Glomerular Filtrat 11 L Rate mL/min Glucose Level 108 Calcium Level 8.8 Test 09/06/18 17:45 Bedside Glucose 112 Consultation Date/Type/Reason Admit Date/Time Aug 20, 2018 at 21:39 Initial Consult Date 09/01/18 Requesting Provider: YUMIKO JC MD Exam/Review of Systems Vital Signs Vitals Vital Signs Date Temp Pulse Resp B/P (MAP) Pulse Ox O2 O2 Flow FiO2 Time Delivery Rate 09/06/18 98.3 68 20 131/77 97 Room Air 15:09 (95) 09/05/18 2.0 20:00 Intake and Output 09/05/18 09/05/18 09/06/18 1515:00 23:00 07:00 IntakeIntake Total 1080 ml 120 ml OutputOutput Total 500 ml BalanceBalance 580 ml 120 ml Medications Medications Current Medications Albuterol (Ventolin Hfa) 4 puff Q2H RESP THERAPY PRN INH SHORTNESS OF BREATH; Start 08/20/18 at 22:00 Ipratropium [place] (Atrovent Hfa) 4 puff Q2H RESP THERAPY PRN INH SHORTNESS OF BREATH; Start 08/20/18 at 22:00 Acetaminophen (Tylenol Liquid) 650 mg Q6H PRN PO PAIN LEVEL 1-3 OR FEVER Last administered on 09/06/18at 12:07; Admin Dose 650 MG; Start 08/20/18 at 22:00 Miscellaneous Information 1 ea NOTE XX ; Start 08/21/18 at 16:30 Glucose (Glutose) 15 gm Q15M PRN PO DECREASED GLUCOSE; Start 08/21/18 at 16:30 Glucose (Glutose) 22.5 gm Q15M PRN PO DECREASED GLUCOSE; Start 08/21/18 at 16:30 Dextrose (D50w Syringe) 25 ml Q15M PRN IV DECREASED GLUCOSE; Start 08/21/18 at 16:30 Dextrose (D50w Syringe) 50 ml Q15M PRN IV DECREASED GLUCOSE; Start 08/21/18 at 16:30 Glucagon (Glucagen) 1 mg Q15M PRN IM DECREASED GLUCOSE; Start 08/21/18 at 16:30 Glucose (Glutose) 15 gm Q15M PRN BUCCAL DECREASED GLUCOSE; Start 08/21/18 at 16:30 Metoprolol Tartrate (Lopressor) 25 mg BID PO Last administered on 09/06/18at 08:44; Admin Dose 25 MG; Start 08/23/18 at 21:00 Epinephrine (Racepinephrine 2.25% (Neb)) 0.25 ml Q3H RESP THERAPY PRN HHN STRIDOR; Start 08/23/18 at 17:00 Ondansetron HCl (Zofran Inj) 4 mg Q6H PRN IV NAUSEA AND/OR VOMITING Last administered on 08/25/18at 21:47; Admin Dose 4 MG; Start 08/25/18 at 21:30 Diagnostic Test (Pha) (Accu-Chek) 1 ea 02 XX ; Start 08/27/18 at 02:00 Vancomycin HCl (Vanco Iv Per Pharmacy) VANCOMYCIN PER PHARMACY PER PROTOCOL XX ; Start 08/27/18 at 11:30 Heparin Sodium (Porcine) (Heparin (5000 Units/1ml)) 5,000 unit Q8 SC Last administered on 09/01/18at 14:27; Admin Dose 5,000 UNIT; Start 08/29/18 at 14:00; Status Hold Epoetin Isacc (Epogen (Non Esrd/Non Oncology)) 10,000 units MoWeFr@17 SC Last administered on 09/05/18at 18:07; Admin Dose 10,000 UNITS; Start 08/29/18 at 17:00 Albumin Human 50 ml @ 100 mls/hr DURING DIALYSIS PRN IV During HD. Last administered on 08/29/18at 13:55; Admin Dose 100 MLS/HR; Start 08/29/18 at 12:30 Aspirin (Aspirin) 81 mg DAILY PO Last administered on 09/03/18at 08:37; Admin Dose 81 MG; Start 08/30/18 at 09:00; Status Hold Calcium Acetate (Phoslo) 1,334 mg WITH MEALS GTB Last administered on 09/06/18at 17:47; Admin Dose 1,334 MG; Start 08/31/18 at 12:00 Heparin Sodium (Porcine) (Heparin (1000 Units/ml)) 3,000 unit AFTER DIALYSIS CATHETER Last administered on 09/05/18at 10:12; Admin Dose 3,000 UNIT; Start 09/01/18 at 12:30 Sucralfate (Carafate Susp) 1 gm QID PO Last administered on 09/06/18 17:46; Admin Dose 1 GM; Start 09/01/18 at 16:00 Pantoprazole (Protonix Iv) 40 mg BID@06,18 IV Last administered on 09/06/18at 17:47; Admin Dose 40 MG; Start 09/01/18 at 18:00 Insulin Aspart (Novolog Insulin Pen) (Adult SC Insulin - Mild Algorithm)... AC MEALS AND BEDTIME SC ; Start 09/03/18 at 07:00 Vancomycin HCl 250 ml @ 125 mls/hr Q96H IVPB ; Start 09/07/18 at 21:00 ARLIN PIERRE NP Sep 06, 2018 18:40
[2018-09-06 19:53] VITALS: BP 121/68; PULSE 80; RESP 18
[2018-09-06] MEDS: MEROPENEM 1 GM/50ML(PMX) 50 ML IVPB SCH (20:09)
[2018-09-07 01:48] VITALS: BP 119/69; PULSE 80; RESP 18
[2018-09-07] MEDS: PANTOPRAZOLE 40 MG INJ IV SCH ×2 (06:01→18:04)
[2018-09-07] MEDS: INSULIN ASPART [NOVOLOG] 3 ML PEN SC SCH ×4 (07:00→20:53)
[2018-09-07 08:02] VITALS: BP 108/69; PULSE 77; RESP 16
[2018-09-07] MEDS: METOPROLOL 25 MG TAB PO SCH ×3 (09:00→20:50)
[2018-09-07] MEDS: CALCIUM ACETATE 667 MG CAP GTB SCH ×3 (09:30→18:16)
[2018-09-07] MEDS: SUCRALFATE (100 MG/ML) 10ML CUP PO SCH ×4 (09:30→20:49)
--- NOTE | 2018-09-07 09:45 | CONS ---
Date/Time of Note Date/Time of Note DATE: 09/07/18 TIME: 09:41 Assessment/Plan Assessment/Plan Assessment/Plan 1. ARF without recovery and vol overloaded, will plan on HD tomm again 2. Wound culture noted, favor removing fem catheter and placing new catheter, ID note rev, abx per id 3. P is still elevated, will add second P binder. 4. Neurologic deficit is sl better, reasonable to have neuro reeval Result Diagram: 09/07/18 0455 09/07/18 0455 Results 24hrs Laboratory Tests Test 09/06/18 12:07 09/06/18 17:45 09/06/18 20:13 09/07/18 04:55 Bedside Glucose 126 112 110 White Blood Count 13.9 H Red Blood Count 3.00 L Hemoglobin 9.3 L Hematocrit 27.9 L Mean Corpuscular Volume 93.0 Mean Corpuscular 31.0 Hemoglobin Mean Corpuscular 33.3 Hemoglobin Concent Red Cell Distribution 15.0 H Width Platelet Count 464 H Mean Platelet Volume 10.4 Immature Granulocytes % 1.200 H Neutrophils % 73.0 Lymphocytes % 10.0 L Monocytes % 8.0 Eosinophils % 7.1 H Basophils % 0.7 Nucleated Red Blood 0.0 Cells % Immature Granulocytes # 0.160 H Neutrophils # 10.1 H Lymphocytes # 1.4 Monocytes # 1.1 H Eosinophils # 1.0 H Basophils # 0.1 Nucleated Red Blood 0.0 Cells # Sodium Level 138 Potassium Level 4.6 Chloride Level 102 Carbon Dioxide Level 25 Anion Gap 11 Blood Urea Nitrogen 81 H Creatinine 5.94 H Est Glomerular Filtrat 11 L Rate mL/min Glucose Level 104 Calcium Level 8.3 L Total Bilirubin 3.5 #H Direct Bilirubin 0.00 Indirect Bilirubin 3.5 H Aspartate Amino 31 Transf (AST/SGOT) Alanine 85 H Aminotransferase (ALT/SG PT) Alkaline Phosphatase 46 Total Protein 4.9 L Albumin 2.3 L Globulin 2.60 Albumin/Globulin Ratio 0.88 Test 09/07/18 08:38 Bedside Glucose 93 Consultation Date/Type/Reason Admit Date/Time Aug 20, 2018 at 21:39 Initial Consult Date 08/21/18 Requesting Provider: YUMIKO JC MD 24 HR Interval Summary Constitutional: other (responds to name) Exam/Review of Systems Vital Signs Vitals Vital Signs Date Temp Pulse Resp B/P (MAP) Pulse Ox O2 O2 Flow FiO2 Time Delivery Rate 09/07/18 98.2 77 16 108/69 99 08:02 (82) 09/06/18 Room Air 15:09 09/05/18 2.0 20:00 Intake and Output 09/06/18 09/06/18 09/07/18 1515:00 23:00 07:00 IntakeIntake Total 480 ml 50 ml 480 ml OutputOutput Total 900 ml 1000 ml 1650 ml BalanceBalance -420 ml -950 ml -1170 ml Exam Neck: No jvd Respiratory: clear to auscultation Cardiovascular: regular rate and rhythm Gastrointestinal: soft Extremities: No edema (2+ sacral edema) Neurological: other (upper extrem strength is sl better but he still is not moving right foot) Medications Medications Current Medications Albuterol (Ventolin Hfa) 4 puff Q2H RESP THERAPY PRN INH SHORTNESS OF BREATH; Start 08/20/18 at 22:00 Ipratropium [place] (Atrovent Hfa) 4 puff Q2H RESP THERAPY PRN INH SHORTNESS OF BREATH; Start 08/20/18 at 22:00 Acetaminophen (Tylenol Liquid) 650 mg Q6H PRN PO PAIN LEVEL 1-3 OR FEVER Last administered on 09/06/18at 20:11; Admin Dose 650 MG; Start 08/20/18 at 22:00 Miscellaneous Information 1 ea NOTE XX ; Start 08/21/18 at 16:30 Glucose (Glutose) 15 gm Q15M PRN PO DECREASED GLUCOSE; Start 08/21/18 at 16:30 Glucose (Glutose) 22.5 gm Q15M PRN PO DECREASED GLUCOSE; Start 08/21/18 at 16:30 Dextrose (D50w Syringe) 25 ml Q15M PRN IV DECREASED GLUCOSE; Start 08/21/18 at 16:30 Dextrose (D50w Syringe) 50 ml Q15M PRN IV DECREASED GLUCOSE; Start 08/21/18 at 16:30 Glucagon (Glucagen) 1 mg Q15M PRN IM DECREASED GLUCOSE; Start 08/21/18 at 16:30 Glucose (Glutose) 15 gm Q15M PRN BUCCAL DECREASED GLUCOSE; Start 08/21/18 at 16:30 Metoprolol Tartrate (Lopressor) 25 mg BID PO Last administered on 09/07/18at 09:30; Admin Dose 25 MG; Start 08/23/18 at 21:00 Epinephrine (Racepinephrine 2.25% (Neb)) 0.25 ml Q3H RESP THERAPY PRN HHN STRIDOR; Start 08/23/18 at 17:00 Ondansetron HCl (Zofran Inj) 4 mg Q6H PRN IV NAUSEA AND/OR VOMITING Last administered on 08/25/18at 21:47; Admin Dose 4 MG; Start 08/25/18 at 21:30 Diagnostic Test (Pha) (Accu-Chek) XX ; Start 08/27/18 at 02:00 Vancomycin HCl (Vanco Iv Per Pharmacy) VANCOMYCIN PER PHARMACY PER PROTOCOL XX ; Start 08/27/18 at 11:30 Heparin Sodium (Porcine) (Heparin (5000 Units/1ml)) 5,000 unit Q8 SC Last administered on 09/01/18at 14:27; Admin Dose 5,000 UNIT; Start 08/29/18 at 14:00; Status Hold Epoetin Isacc (Epogen (Non Esrd/Non Oncology)) 10,000 units MoWeFr@17 SC Last administered on 09/05/18at 18:07; Admin Dose 10,000 UNITS; Start 08/29/18 at 17:00 Albumin Human 50 ml @ 100 mls/hr DURING DIALYSIS PRN IV During HD. Last administered on 08/29/18at 13:55; Admin Dose 100 MLS/HR; Start 08/29/18 at 12:30 Aspirin (Aspirin) 81 mg DAILY PO Last administered on 09/03/18at 08:37; Admin Dose 81 MG; Start 08/30/18 at 09:00; Status Hold Calcium Acetate (Phoslo) 1,334 mg WITH MEALS GTB Last administered on 09/07/18 09:30; Admin Dose 1,334 MG; Start 08/31/18 at 12:00 Heparin Sodium (Porcine) (Heparin (1000 Units/ml)) 3,000 unit AFTER DIALYSIS CATHETER Last administered on 09/05/18at 10:12; Admin Dose 3,000 UNIT; Start 09/01/18 at 12:30 Sucralfate (Carafate Susp) 1 gm QID PO Last administered on 09/07/18 09:30; Admin Dose 1 GM; Start 09/01/18 at 16:00 Pantoprazole (Protonix Iv) 40 mg BID@06,18 IV Last administered on 09/07/18at 06:01; Admin Dose 40 MG; Start 09/01/18 at 18:00 Insulin Aspart (Novolog Insulin Pen) (Adult SC Insulin - Mild Algorithm)... AC MEALS AND BEDTIME SC ; Start 09/03/18 at 07:00 Vancomycin HCl 250 ml @ 125 mls/hr Q96H IVPB ; Start 09/07/18 at 21:00 Meropenem/Sodium Chloride 50 ml @ 100 mls/hr Q24H IVPB Last administered on 09/06/18at 20:09; Admin Dose 100 MLS/HR; Start 09/06/18 at 19:30 MAXIMO TAY MD Sep 07, 2018 09:45
--- NOTE | 2018-09-07 10:22 | CONS ---
Assessment/Plan Assessment/Plan Hospital Course A: 33 yo M with uncertain PMH who presents for evaluation of altered mental status..for which neurology is consulted.. UDS + for amphetamines, opioids, EtOH, cannabis He was reported to be severely hypoglycemic in the field. JULIAN+ CK++++ Clinically consistent with an acute and multifactorial toxic-metabolic encephalopathy. Stroke is unlikely. Seizure is unlikely. CTH (08/20) was unrevealing. Repeat CTH was most notable for bilateral globus pallidus edema MRI is notable for sequelae of a toxic-metabolic insult.. As an aside, he has profound 4-limb weakness on exam, which does not appear to be improving w/ his mental status...which raises suspicion for a cervical spine process. ?? fall prior to presentation w/ resultant c-spine injury?? Perhaps sequelae of rhabdomyolysis.. P: MRI C spine for further characterization Cont medical management per primary Reorient as necessary Limit sedating medications where possible Will follow clinically, to make further neurologic recommendations as necessary Result Diagram: 09/07/18 0455 09/07/18 0455 Results 24hrs Laboratory Tests Test 09/06/18 12:07 09/06/18 17:45 09/06/18 20:13 09/07/18 04:55 Bedside Glucose 126 112 110 White Blood Count 13.9 H Red Blood Count 3.00 L Hemoglobin 9.3 L Hematocrit 27.9 L Mean Corpuscular Volume 93.0 Mean Corpuscular 31.0 Hemoglobin Mean Corpuscular 33.3 Hemoglobin Concent Red Cell Distribution 15.0 H Width Platelet Count 464 H Mean Platelet Volume 10.4 Immature Granulocytes % 1.200 H Neutrophils % 73.0 Lymphocytes % 10.0 L Monocytes % 8.0 Eosinophils % 7.1 H Basophils % 0.7 Nucleated Red Blood 0.0 Cells % Immature Granulocytes # 0.160 H Neutrophils # 10.1 H Lymphocytes # 1.4 Monocytes # 1.1 H Eosinophils # 1.0 H Basophils # 0.1 Nucleated Red Blood 0.0 Cells # Sodium Level 138 Potassium Level 4.6 Chloride Level 102 Carbon Dioxide Level 25 Anion Gap 11 Blood Urea Nitrogen 81 H Creatinine 5.94 H Est Glomerular Filtrat 11 L Rate mL/min Glucose Level 104 Calcium Level 8.3 L Total Bilirubin 3.5 #H Direct Bilirubin 0.00 Indirect Bilirubin 3.5 H Aspartate Amino 31 Transf (AST/SGOT) Alanine 85 H Aminotransferase (ALT/SG PT) Alkaline Phosphatase 46 Total Protein 4.9 L Albumin 2.3 L Globulin 2.60 Albumin/Globulin Ratio 0.88 Test 09/07/18 08:38 Bedside Glucose 93 Consultation Date/Type/Reason Admit Date/Time Aug 20, 2018 at 21:39 Type of Consult Neurology Requesting Provider: YUMIKO JC MD Date/Time of Note DATE: 09/07/18 TIME: 10:22 24 HR Interval Summary Free Text/Dictation continues acute care Exam Vital Signs Vitals Vital Signs Date Temp Pulse Resp B/P (MAP) Pulse Ox O2 O2 Flow FiO2 Time Delivery Rate 09/07/18 98.2 77 16 108/69 99 08:02 (82) 09/06/18 Room Air 15:09 09/05/18 2.0 20:00 Intake and Output 09/06/18 09/06/18 09/07/18 1515:00 23:00 07:00 IntakeIntake Total 480 ml 50 ml 480 ml OutputOutput Total 900 ml 1000 ml 1650 ml BalanceBalance -420 ml -950 ml -1170 ml Exam PE: Gen Appearance: No Apparent Distress HEENT: Normocephalic Cardiovascular: Regular rate Abdomen: Soft Extremities: Dry NE: The patient was lethargic, sparsely verbal...able to follow simple appendicular commands.. Cranial nerve examination was limited by mental status. Pupils were equal and reactive to light. There was no afferent pupillary defect. Funduscopic examination was limited. Face was grossly symmetric, w/ present corneal and cough reflexes. Tone was normal. Muscle bulk was normal. I did not see fasciculations. The patient wiggled his fingers b/l and his toes on the left; he was otherwise severely weak. Coordination and gait testing was limited by weakness.. Arm and leg reflexes were brisk in the right arm and left leg. Phillips's sign was absent. Plantar responses were mute.. GEOVANNI BANKS Sep 07, 2018 10:22
--- NOTE | 2018-09-07 11:45 | PN ---
Date/Time of Note Date/Time of Note DATE: 09/07/18 TIME: 11:34 Assessment/Plan VTE Prophylaxis Risk score (from Nsg)>0 risk: 8 SCD applied (from Nsg): Yes Pharmacological prophylaxis: other Lines/Catheters IV Catheter Type (from Nrsg): damian cath Urinary Cath still in place: Yes Reason Cath still needed: urinary retention Assessment/Plan Hospital Course S: Patient seen by PT, neurology, and renal teams today. Awaiting another dialysis session. Otherwise no acute events overnight. O: VS - see below PE: Gen: Lying in bed, no acute distress Eyes: Pupils equal round reactive to light, extraocular muscles intact HEENT: ET tube in place, moist mucous membranes, Card: Regular rate and rhythm no murmurs Pulm: Mechanical breath sounds bilaterally, no crackles. Abd: Soft, nondistended. Ext: No cyanosis/clubbing/edema Assessment/Plan: 33 yo man brought in found down with subsequent JULIAN secondary to rhabdomyolysis; positive for alcohol, methamphetamine, cannabis, opioids as well. # Renal failure- Oliguric renal failure with hyperkalemia (after potassium replacement), also presented with severe metabolic acidosis- Likely due to a combination of rhabdo and drug use. CK levels normal now, but patient presently dialysis dependent. - Continue dialysis per renal recommendations #Hematochezia- Nurse reported maroon colored stool on 09/01- EGD 09/02 only with mild gastritis and distal esophagitis- MD witnessed maroon colored, grainy stool on 09/03. Rectal exam negative for external hemorrhoids or palpable internal hemorrhoids. Colonoscopy showed solitary rectal ulcer syndrome, bleeding likely from the rectal ulcer. -For now continue PPI BID and carafate, follow-up GI recommendations -Monitor hemoglobin, improved the last 48 hours after PRBC transfusion given then #Encephalopathy and Polyneuropathy- Despite extubation on 08/24, he remains lethargic and weak.- Head CT 08/20 negative- Repeat CT on 08/31 shows some edema of the basal ganglia, confirmed on MRI, this likely represents residual toxic m etabolic effect - TSH, ammonia, AM cortisol are normal. 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 -Monitor, follow-up recommendations from neurology - following. -Reorient as needed #Bacteremia- Had fever on 08/27 - Blood culture (x1 unfortunately) from that day is growing coag negative staph, a common contaminant. Repeat blood culture negative.- D/Matias right IJ. But his femoral dialysis catheter may also be a source of infection -and now in fact his wound culture from the groin area where the dialysis catheter is, is growing positive Pseudomonas and other gram- negative wayne. -Continue Vanco per ID, they have also added meropenem, continue for now - Follow-up ID recommendations -line may need to be removed, will discuss with renal and ID teams. Patient however will need replacement catheter placed -he did discuss with him the timing of this # acute respiratory failure- extubated 08/24, was likely secondary to polysubstance overdose resulting in multiorgan dysfunction; patient had subsequent severe metabolic acidosis with inadequate respiratory compensation-now oxygen levels stable on nasal cannula supplementation-s/p course of zosyn for CAP- Now on minimal nasal cannula. -Monitor, continue oxygen supplementation as needed # Elevated troponin-now appears stable- CV consulted earlier this admission. Likely demand ischemia from drug use. - Will not treat per NSTEMI protocol, monitor, follow-up cardiology recommendations # transaminitis: - May be from shock liver or drug use.- Hep B, Hep C negative. LFTs have trended down. # Rhabdomyolysis - resolved # Coagulopathy- May be due to liver and renal injury as well as drug use- No DIC. Resolved. # polysubstance abuse - Again patient was found to be positive for opioids, methamphetamine, marijuana and an elevated blood alcohol level. -Earlier this admission ordered for thiamine 300 mg IM daily times 3 days, further treatment as per the clinical course # DVT and GI prophylaxis: Protonix twice daily Result Diagram: 09/07/18 0455 09/07/18 0455 Results 24hrs Laboratory Tests Test 09/06/18 12:07 09/06/18 17:45 09/06/18 20:13 09/07/18 04:55 Bedside Glucose 126 112 110 White Blood Count 13.9 H Red Blood Count 3.00 L Hemoglobin 9.3 L Hematocrit 27.9 L Mean Corpuscular Volume 93.0 Mean Corpuscular 31.0 Hemoglobin Mean Corpuscular 33.3 Hemoglobin Concent Red Cell Distribution 15.0 H Width Platelet Count 464 H Mean Platelet Volume 10.4 Immature Granulocytes % 1.200 H Neutrophils % 73.0 Lymphocytes % 10.0 L Monocytes % 8.0 Eosinophils % 7.1 H Basophils % 0.7 Nucleated Red Blood 0.0 Cells % Immature Granulocytes # 0.160 H Neutrophils # 10.1 H Lymphocytes # 1.4 Monocytes # 1.1 H Eosinophils # 1.0 H Basophils # 0.1 Nucleated Red Blood 0.0 Cells # Sodium Level 138 Potassium Level 4.6 Chloride Level 102 Carbon Dioxide Level 25 Anion Gap 11 Blood Urea Nitrogen 81 H Creatinine 5.94 H Est Glomerular Filtrat 11 L Rate mL/min Glucose Level 104 Calcium Level 8.3 L Total Bilirubin 3.5 #H Direct Bilirubin 0.00 Indirect Bilirubin 3.5 H Aspartate Amino 31 Transf (AST/SGOT) Alanine 85 H Aminotransferase (ALT/SG PT) Alkaline Phosphatase 46 Total Protein 4.9 L Albumin 2.3 L Globulin 2.60 Albumin/Globulin Ratio 0.88 Test 09/07/18 08:38 Bedside Glucose 93 Exam/Review of Systems Vital Signs Vitals Vital Signs Date Temp Pulse Resp B/P (MAP) Pulse Ox O2 O2 Flow FiO2 Time Delivery Rate 09/07/18 98.2 77 16 108/69 99 08:02 (82) 09/06/18 Room Air 15:09 09/05/18 2.0 20:00 Intake and Output 09/06/18 09/06/18 09/07/18 1515:00 23:00 07:00 IntakeIntake Total 480 ml 50 ml 480 ml OutputOutput Total 900 ml 1000 ml 1650 ml BalanceBalance -420 ml -950 ml -1170 ml Medications Medications Current Medications Albuterol (Ventolin Hfa) 4 puff Q2H RESP THERAPY PRN INH SHORTNESS OF BREATH; Start 08/20/18 at 22:00 Ipratropium [place] (Atrovent Hfa) 4 puff Q2H RESP THERAPY PRN INH SHORTNESS OF BREATH; Start 08/20/18 at 22:00 Acetaminophen (Tylenol Liquid) 650 mg Q6H PRN PO PAIN LEVEL 1-3 OR FEVER Last administered on 09/06/18at 20:11; Admin Dose 650 MG; Start 08/20/18 at 22:00 Miscellaneous Information 1 ea NOTE XX ; Start 08/21/18 at 16:30 Glucose (Glutose) 15 gm Q15M PRN PO DECREASED GLUCOSE; Start 08/21/18 at 16:30 Glucose (Glutose) 22.5 gm Q15M PRN PO DECREASED GLUCOSE; Start 08/21/18 at 16:30 Dextrose (D50w Syringe) 25 ml Q15M PRN IV DECREASED GLUCOSE; Start 08/21/18 at 16:30 Dextrose (D50w Syringe) 50 ml Q15M PRN IV DECREASED GLUCOSE; Start 08/21/18 at 16:30 Glucagon (Glucagen) 1 mg Q15M PRN IM DECREASED GLUCOSE; Start 08/21/18 at 16:30 Glucose (Glutose) 15 gm Q15M PRN BUCCAL DECREASED GLUCOSE; Start 08/21/18 at 16:30 Metoprolol Tartrate (Lopressor) 25 mg BID PO Last administered on 09/06/18at 20:10; Admin Dose 25 MG; Start 08/23/18 at 21:00 Epinephrine (Racepinephrine 2.25% (Neb)) 0.25 ml Q3H RESP THERAPY PRN HHN STRIDOR; Start 08/23/18 at 17:00 Ondansetron HCl (Zofran Inj) 4 mg Q6H PRN IV NAUSEA AND/OR VOMITING Last administered on 08/25/18at 21:47; Admin Dose 4 MG; Start 08/25/18 at 21:30 Diagnostic Test (Pha) (Accu-Chek) 1 XX ; Start 08/27/18 at 02:00 Vancomycin HCl (Vanco Iv Per Pharmacy) VANCOMYCIN PER PHARMACY PER PROTOCOL XX ; Start 08/27/18 at 11:30 Heparin Sodium (Porcine) (Heparin (5000 Units/1ml)) 5,000 unit Q8 SC Last administered on 09/01/18at 14:27; Admin Dose 5,000 UNIT; Start 08/29/18 at 14:00; Status Hold Epoetin Isacc (Epogen (Non Esrd/Non Oncology)) 10,000 units MoWeFr@17 SC Last administered on 09/05/18at 18:07; Admin Dose 10,000 UNITS; Start 08/29/18 at 17:00 Albumin Human 50 ml @ 100 mls/hr DURING DIALYSIS PRN IV During HD. Last administered on 08/29/18at 13:55; Admin Dose 100 MLS/HR; Start 08/29/18 at 12:30 Aspirin (Aspirin) 81 mg DAILY PO Last administered on 09/03/18at 08:37; Admin Dose 81 MG; Start 08/30/18 at 09:00; Status Hold Calcium Acetate (Phoslo) 1,334 mg WITH MEALS GTB Last administered on 09/07/18 09:30; Admin Dose 1,334 MG; Start 08/31/18 at 12:00 Heparin Sodium (Porcine) (Heparin (1000 Units/ml)) 3,000 unit AFTER DIALYSIS CATHETER Last administered on 09/05/18at 10:12; Admin Dose 3,000 UNIT; Start 09/01/18 at 12:30 Sucralfate (Carafate Susp) 1 gm QID PO Last administered on 09/07/18 09:30; Admin Dose 1 GM; Start 09/01/18 at 16:00 Pantoprazole (Protonix Iv) 40 mg BID@06,18 IV Last administered on 09/07/18at 06:01; Admin Dose 40 MG; Start 09/01/18 at 18:00 Insulin Aspart (Novolog Insulin Pen) (Adult SC Insulin - Mild Algorithm)... AC MEALS AND BEDTIME SC ; Start 09/03/18 at 07:00 Vancomycin HCl 250 ml @ 125 mls/hr Q96H IVPB ; Start 09/07/18 at 21:00 Meropenem/Sodium Chloride 50 ml @ 100 mls/hr Q24H IVPB Last administered on 09/06/18at 20:09; Admin Dose 100 MLS/HR; Start 09/06/18 at 19:30 Sevelamer Carbonate (Renvela) 800 mg WITH MEALS PO ; Start 09/07/18 at 12:00 CINTIA ESPINOSA Sep 07, 2018 11:44
--- NOTE | 2018-09-07 12:36 | CONS ---
Date/Time of Note Date/Time of Note DATE: 09/07/18 TIME: 12:34 Assessment/Plan Assessment/Plan Hospital Course No acute changes, patient looks comfortable, no fevers overnight. T-max 99.5 WBC 13.9 platelets 464 neutrophils 73 Culture of right femoral Saurabh catheter site growing Pseudomonas and gram- negative rods Antimicrobials: Patient is on Vanco Merrem Indwelling: Right femoral Saurabh, Suh Physical examination: Well-nourished well-developed middle-aged man who is in no distress. Head atraumatic normocephalic sclera nonicteric. Neck is supple chest rise symmetrical breath sounds diminished bases. Heart: S1-S2, tachycardic. Abdomen soft bowel sounds present. Extremities with bilateral edema Assessment: 1. Systemic inflammatory response syndrome with leukocytosis and ongoing fevers, likely line sepsis 2. Status post Gram-positive cocci bacteremia, possibly line sepsis, s/p TLC dc'd 3. Status post acute encephalopathy 4. Status post acute hypoxemic respiratory failure 5. Pulmonary edema 6. Acute renal failure, on hemodialysis 7. Severe anasarca 8. History of polysubstance abuse 9. Muscle weakness Plan: Clinically stable, we will continue him on current antibiotics per josh jha with nephrology plan to discontinue Saurabh catheter tomorrow after dialysis, then we will will give patient a line holiday for at least 24 hours prior to placing the new line DW Dr Monson Result Diagram: 09/07/18 0455 09/07/18 0455 Results 24hrs Laboratory Tests Test 09/06/18 17:45 09/06/18 20:13 09/07/18 04:55 09/07/18 08:38 Bedside Glucose 112 110 93 White Blood Count 13.9 H Red Blood Count 3.00 L Hemoglobin 9.3 L Hematocrit 27.9 L Mean Corpuscular Volume 93.0 Mean Corpuscular 31.0 Hemoglobin Mean Corpuscular 33.3 Hemoglobin Concent Red Cell Distribution 15.0 H Width Platelet Count 464 H Mean Platelet Volume 10.4 Immature Granulocytes % 1.200 H Neutrophils % 73.0 Lymphocytes % 10.0 L Monocytes % 8.0 Eosinophils % 7.1 H Basophils % 0.7 Nucleated Red Blood 0.0 Cells % Immature Granulocytes # 0.160 H Neutrophils # 10.1 H Lymphocytes # 1.4 Monocytes # 1.1 H Eosinophils # 1.0 H Basophils # 0.1 Nucleated Red Blood 0.0 Cells # Sodium Level 138 Potassium Level 4.6 Chloride Level 102 Carbon Dioxide Level 25 Anion Gap 11 Blood Urea Nitrogen 81 H Creatinine 5.94 H Est Glomerular Filtrat 11 L Rate mL/min Glucose Level 104 Calcium Level 8.3 L Total Bilirubin 3.5 #H Direct Bilirubin 0.00 Indirect Bilirubin 3.5 H Aspartate Amino 31 Transf (AST/SGOT) Alanine 85 H Aminotransferase (ALT/SG PT) Alkaline Phosphatase 46 Total Protein 4.9 L Albumin 2.3 L Globulin 2.60 Albumin/Globulin Ratio 0.88 Consultation Date/Type/Reason Admit Date/Time Aug 20, 2018 at 21:39 Initial Consult Date 08/21/18 Type of Consult id Requesting Provider: YUMIKO JC MD Exam/Review of Systems Vital Signs Vitals Vital Signs Date Temp Pulse Resp B/P (MAP) Pulse Ox O2 O2 Flow FiO2 Time Delivery Rate 09/07/18 98.2 77 16 108/69 99 08:02 (82) 09/06/18 Room Air 15:09 09/05/18 2.0 20:00 Intake and Output 09/06/18 09/06/18 09/07/18 1515:00 23:00 07:00 IntakeIntake Total 480 ml 50 ml 480 ml OutputOutput Total 900 ml 1000 ml 1650 ml BalanceBalance -420 ml -950 ml -1170 ml Medications Medications Current Medications Albuterol (Ventolin Hfa) 4 puff Q2H RESP THERAPY PRN INH SHORTNESS OF BREATH; Start 08/20/18 at 22:00 Ipratropium [place] (Atrovent Hfa) 4 puff Q2H RESP THERAPY PRN INH SHORTNESS OF BREATH; Start 08/20/18 at 22:00 Acetaminophen (Tylenol Liquid) 650 mg Q6H PRN PO PAIN LEVEL 1-3 OR FEVER Last administered on 09/06/18at 20:11; Admin Dose 650 MG; Start 08/20/18 at 22:00 Miscellaneous Information 1 ea NOTE XX ; Start 08/21/18 at 16:30 Glucose (Glutose) 15 gm Q15M PRN PO DECREASED GLUCOSE; Start 08/21/18 at 16:30 Glucose (Glutose) 22.5 gm Q15M PRN PO DECREASED GLUCOSE; Start 08/21/18 at 16:30 Dextrose (D50w Syringe) 25 ml Q15M PRN IV DECREASED GLUCOSE; Start 08/21/18 at 16:30 Dextrose (D50w Syringe) 50 ml Q15M PRN IV DECREASED GLUCOSE; Start 08/21/18 at 16:30 Glucagon (Glucagen) 1 mg Q15M PRN IM DECREASED GLUCOSE; Start 08/21/18 at 16:30 Glucose (Glutose) 15 gm Q15M PRN BUCCAL DECREASED GLUCOSE; Start 08/21/18 at 16:30 Metoprolol Tartrate (Lopressor) 25 mg BID PO Last administered on 09/06/18at 20:10; Admin Dose 25 MG; Start 08/23/18 at 21:00 Epinephrine (Racepinephrine 2.25% (Neb)) 0.25 ml Q3H RESP THERAPY PRN HHN STRIDOR; Start 08/23/18 at 17:00 Ondansetron HCl (Zofran Inj) 4 mg Q6H PRN IV NAUSEA AND/OR VOMITING Last administered on 08/25/18at 21:47; Admin Dose 4 MG; Start 08/25/18 at 21:30 Diagnostic Test (Pha) (Accu-Chek) 1 02 XX ; Start 08/27/18 at 02:00 Vancomycin HCl (Vanco Iv Per Pharmacy) VANCOMYCIN PER PHARMACY PER PROTOCOL XX ; Start 08/27/18 at 11:30 Heparin Sodium (Porcine) (Heparin (5000 Units/1ml)) 5,000 unit Q8 SC Last administered on 09/01/18at 14:27; Admin Dose 5,000 UNIT; Start 08/29/18 at 14:00; Status Hold Epoetin Isacc (Epogen (Non Esrd/Non Oncology)) 10,000 units MoWeFr@17 SC Last administered on 09/05/18at 18:07; Admin Dose 10,000 UNITS; Start 08/29/18 at 17:00 Albumin Human 50 ml @ 100 mls/hr DURING DIALYSIS PRN IV During HD. Last administered on 08/29/18at 13:55; Admin Dose 100 MLS/HR; Start 08/29/18 at 12:30 Aspirin (Aspirin) 81 mg DAILY PO Last administered on 09/03/18at 08:37; Admin Dose 81 MG; Start 08/30/18 at 09:00; Status Hold Calcium Acetate (Phoslo) 1,334 mg WITH MEALS GTB Last administered on 09/07/18 09:30; Admin Dose 1,334 MG; Start 08/31/18 at 12:00 Heparin Sodium (Porcine) (Heparin (1000 Units/ml)) 3,000 unit AFTER DIALYSIS CATHETER Last administered on 09/05/18at 10:12; Admin Dose 3,000 UNIT; Start 09/01/18 at 12:30 Sucralfate (Carafate Susp) 1 gm QID PO Last administered on 09/07/18 09:30; Admin Dose 1 GM; Start 09/01/18 at 16:00 Pantoprazole (Protonix Iv) 40 mg BID@06,18 IV Last administered on 09/07/18 06:01; Admin Dose 40 MG; Start 09/01/18 at 18:00 Insulin Aspart (Novolog Insulin Pen) (Adult SC Insulin - Mild Algorithm)... AC MEALS AND BEDTIME SC ; Start 09/03/18 at 07:00 Vancomycin HCl 250 ml @ 125 mls/hr Q96H IVPB ; Start 09/07/18 at 21:00 Meropenem/Sodium Chloride 50 ml @ 100 mls/hr Q24H IVPB Last administered on 09/06/18at 20:09; Admin Dose 100 MLS/HR; Start 09/06/18 at 19:30 Sevelamer Carbonate (Renvela) 800 mg WITH MEALS PO ; Start 09/07/18 at 12:00 BRIANNE COYLE NP Sep 07, 2018 12:36
[2018-09-07] MEDS: SEVELAMER CARBONATE 800 MG TABLET PO SCH ×2 (13:18→18:50)
--- NOTE | 2018-09-07 13:42 | CONS ---
Date/Time of Note Date/Time of Note DATE: 09/07/18 TIME: 13:41 Assessment/Plan Assessment/Plan Assessment/Plan Acute respiratory failure status post extubation Low normal left ventricular ejection fraction 50% Sepsis Acute kidney injury on hemodialysis Myocardial infarction, likely type II Encephalopathy GI bleed Liver dysfunction Illicit drug use -Off aspirin secondary to GI bleed. No statin given abnormal LFTs. Continue beta-kishan as tolerated. Fluid management via hemodialysis as per nephrology Result Diagram: 09/07/18 0455 09/07/18 0455 Results 24hrs Laboratory Tests Test 09/06/18 17:45 09/06/18 20:13 09/07/18 04:55 09/07/18 08:38 Bedside Glucose 112 110 93 White Blood Count 13.9 H Red Blood Count 3.00 L Hemoglobin 9.3 L Hematocrit 27.9 L Mean Corpuscular Volume 93.0 Mean Corpuscular 31.0 Hemoglobin Mean Corpuscular 33.3 Hemoglobin Concent Red Cell Distribution 15.0 H Width Platelet Count 464 H Mean Platelet Volume 10.4 Immature Granulocytes % 1.200 H Neutrophils % 73.0 Lymphocytes % 10.0 L Monocytes % 8.0 Eosinophils % 7.1 H Basophils % 0.7 Nucleated Red Blood 0.0 Cells % Immature Granulocytes # 0.160 H Neutrophils # 10.1 H Lymphocytes # 1.4 Monocytes # 1.1 H Eosinophils # 1.0 H Basophils # 0.1 Nucleated Red Blood 0.0 Cells # Sodium Level 138 Potassium Level 4.6 Chloride Level 102 Carbon Dioxide Level 25 Anion Gap 11 Blood Urea Nitrogen 81 H Creatinine 5.94 H Est Glomerular Filtrat 11 L Rate mL/min Glucose Level 104 Calcium Level 8.3 L Total Bilirubin 3.5 #H Direct Bilirubin 0.00 Indirect Bilirubin 3.5 H Aspartate Amino 31 Transf (AST/SGOT) Alanine 85 H Aminotransferase (ALT/SG PT) Alkaline Phosphatase 46 Total Protein 4.9 L Albumin 2.3 L Globulin 2.60 Albumin/Globulin Ratio 0.88 Test 09/07/18 12:41 Bedside Glucose 102 Consultation Date/Type/Reason Admit Date/Time Aug 20, 2018 at 21:39 Initial Consult Date 08/21/18 Type of Consult cv Requesting Provider: YUMIKO JC MD 24 HR Interval Summary Free Text/Dictation Patient seen and examined. No new cardiac issues as per nursing staff Exam/Review of Systems Vital Signs Vitals Vital Signs Date Temp Pulse Resp B/P (MAP) Pulse Ox O2 O2 Flow FiO2 Time Delivery Rate 09/07/18 98.2 77 16 108/69 99 08:02 (82) 09/06/18 Room Air 15:09 09/05/18 2.0 20:00 Intake and Output 09/06/18 09/06/18 09/07/18 1515:00 23:00 07:00 IntakeIntake Total 480 ml 50 ml 480 ml OutputOutput Total 900 ml 1000 ml 1650 ml BalanceBalance -420 ml -950 ml -1170 ml Exam Sleeping but arousable, no apparent distress Head: normocephalic Respiratory: other (Coarse breath sounds bilaterally, no wheezing) Cardiovascular: regular rate and rhythm, other (S1-S2 heard) Gastrointestinal: soft, non-tender, bowel sounds Extremities: edema Medications Medications Current Medications Albuterol (Ventolin Hfa) 4 puff Q2H RESP THERAPY PRN INH SHORTNESS OF BREATH; Start 08/20/18 at 22:00 Ipratropium [place] (Atrovent Hfa) 4 puff Q2H RESP THERAPY PRN INH SHORTNESS OF BREATH; Start 08/20/18 at 22:00 Acetaminophen (Tylenol Liquid) 650 mg Q6H PRN PO PAIN LEVEL 1-3 OR FEVER Last administered on 09/06/18at 20:11; Admin Dose 650 MG; Start 08/20/18 at 22:00 Miscellaneous Information 1 ea NOTE XX ; Start 08/21/18 at 16:30 Glucose (Glutose) 15 gm Q15M PRN PO DECREASED GLUCOSE; Start 08/21/18 at 16:30 Glucose (Glutose) 22.5 gm Q15M PRN PO DECREASED GLUCOSE; Start 08/21/18 at 16:30 Dextrose (D50w Syringe) 25 ml Q15M PRN IV DECREASED GLUCOSE; Start 08/21/18 at 16:30 Dextrose (D50w Syringe) 50 ml Q15M PRN IV DECREASED GLUCOSE; Start 08/21/18 at 16:30 Glucagon (Glucagen) 1 mg Q15M PRN IM DECREASED GLUCOSE; Start 08/21/18 at 16:30 Glucose (Glutose) 15 gm Q15M PRN BUCCAL DECREASED GLUCOSE; Start 08/21/18 at 16:30 Metoprolol Tartrate (Lopressor) 25 mg BID PO Last administered on 09/06/18 20:10; Admin Dose 25 MG; Start 08/23/18 at 21:00 Epinephrine (Racepinephrine 2.25% (Neb)) 0.25 ml Q3H RESP THERAPY PRN HHN STRIDOR; Start 08/23/18 at 17:00 Ondansetron HCl (Zofran Inj) 4 mg Q6H PRN IV NAUSEA AND/OR VOMITING Last administered on 08/25/18at 21:47; Admin Dose 4 MG; Start 08/25/18 at 21:30 Diagnostic Test (Pha) (Accu-Chek) XX ; Start 08/27/18 at 02:00 Vancomycin HCl (Vanco Iv Per Pharmacy) VANCOMYCIN PER PHARMACY PER PROTOCOL XX ; Start 08/27/18 at 11:30 Heparin Sodium (Porcine) (Heparin (5000 Units/1ml)) 5,000 unit Q8 SC Last administered on 09/01/18at 14:27; Admin Dose 5,000 UNIT; Start 08/29/18 at 14:00; Status Hold Epoetin Isacc (Epogen (Non Esrd/Non Oncology)) 10,000 units MoWeFr@17 SC Last administered on 09/05/18at 18:07; Admin Dose 10,000 UNITS; Start 08/29/18 at 17:00 Albumin Human 50 ml @ 100 mls/hr DURING DIALYSIS PRN IV During HD. Last administered on 08/29/18 13:55; Admin Dose 100 MLS/HR; Start 08/29/18 at 12:30 Aspirin (Aspirin) 81 mg DAILY PO Last administered on 09/03/18at 08:37; Admin Dose 81 MG; Start 08/30/18 at 09:00; Status Hold Calcium Acetate (Phoslo) 1,334 mg WITH MEALS GTB Last administered on 09/07/18 13:18; Admin Dose 1,334 MG; Start 08/31/18 at 12:00 Heparin Sodium (Porcine) (Heparin (1000 Units/ml)) 3,000 unit AFTER DIALYSIS CATHETER Last administered on 09/05/18at 10:12; Admin Dose 3,000 UNIT; Start 09/01/18 at 12:30 Sucralfate (Carafate Susp) 1 gm QID PO Last administered on 09/07/18 13:18; Admin Dose 1 GM; Start 09/01/18 at 16:00 Pantoprazole (Protonix Iv) 40 mg BID@06,18 IV Last administered on 09/07/18at 06:01; Admin Dose 40 MG; Start 09/01/18 at 18:00 Insulin Aspart (Novolog Insulin Pen) (Adult SC Insulin - Mild Algorithm)... AC MEALS AND BEDTIME SC ; Start 09/03/18 at 07:00 Vancomycin HCl 250 ml @ 125 mls/hr Q96H IVPB ; Start 09/07/18 at 21:00 Meropenem/Sodium Chloride 50 ml @ 100 mls/hr Q24H IVPB Last administered on 09/06/18at 20:09; Admin Dose 100 MLS/HR; Start 09/06/18 at 19:30 Sevelamer Carbonate (Renvela) 800 mg WITH MEALS PO Last administered on 09/07/18at 13:18; Admin Dose 800 MG; Start 09/07/18 at 12:00 Kana Phoenix DO Sep 07, 2018 13:42
[2018-09-07 14:17] VITALS: BP 125/62; PULSE 79; RESP 18
[2018-09-07] MEDS: EPOETIN 10000 UNITS/ML (NON ESRD/NON ONCOLOGY) SC SCH (18:06)
[2018-09-07 19:54] VITALS: BP 109/66; PULSE 74; RESP 18
[2018-09-07] MEDS: MEROPENEM 1 GM/50ML(PMX) 50 ML IVPB SCH (20:49)
[2018-09-07] MEDS ORDERED: VANCOMYCIN 1 GM 250 ML IVPB SCH (21:00)
[2018-09-08] VITALS (18 sets, daily range): BP systolic 101–123; BP diastolic 65–83; PULSE 67–93; RESP 16–18
[2018-09-08] MEDS: ACCU-CHEK XX SCH (02:00)
[2018-09-08] MEDS: PANTOPRAZOLE 40 MG INJ IV SCH ×2 (06:19→17:25)
[2018-09-08] MEDS: INSULIN ASPART [NOVOLOG] 3 ML PEN SC SCH ×4 (07:00→21:00)
[2018-09-08] MEDS: CALCIUM ACETATE 667 MG CAP GTB SCH ×3 (09:00→17:25)
[2018-09-08] MEDS: METOPROLOL 25 MG TAB PO SCH ×2 (09:00→21:16)
[2018-09-08] MEDS: SUCRALFATE (100 MG/ML) 10ML CUP PO SCH ×4 (09:00→21:15)
[2018-09-08] MEDS: SEVELAMER CARBONATE 800 MG TABLET PO SCH (09:00)
--- NOTE | 2018-09-08 09:39 | CONS ---
Date/Time of Note Date/Time of Note DATE: 09/08/18 TIME: 09:36 Assessment/Plan Assessment/Plan Assessment/Plan 1. ARF may be improving based on good UO and no significant rise BUN, would remove present fem catheter and observe before placing new catheter. 2. Anemia is stable 3. Cognition has improved but motor fx has min improved. 4. Elev Phosphorous is improving as well. Result Diagram: 09/08/18 0443 09/08/18 0443 Results 24hrs Laboratory Tests Test 09/07/18 12:41 09/07/18 17:45 09/07/18 20:52 09/08/18 04:43 Bedside Glucose 102 97 110 White Blood Count 12.6 H Red Blood Count 3.15 L Hemoglobin 9.9 L Hematocrit 29.5 L Mean Corpuscular Volume 93.7 Mean Corpuscular 31.4 Hemoglobin Mean Corpuscular 33.6 Hemoglobin Concent Red Cell Distribution 14.3 Width Platelet Count 458 H Mean Platelet Volume 10.0 Immature Granulocytes % 1.800 H Neutrophils % 69.2 Lymphocytes % 12.3 L Monocytes % 8.4 Eosinophils % 7.3 H Basophils % 1.0 Nucleated Red Blood 0.0 Cells % Immature Granulocytes # 0.220 H Neutrophils # 8.7 H Lymphocytes # 1.5 Monocytes # 1.1 H Eosinophils # 0.9 H Basophils # 0.1 Nucleated Red Blood 0.0 Cells # Sodium Level 140 Potassium Level 4.0 Chloride Level 99 Carbon Dioxide Level 28 Anion Gap 13 Blood Urea Nitrogen 54 H Creatinine 4.43 #H Est Glomerular Filtrat 15 L Rate mL/min Glucose Level 109 Calcium Level 9.1 Phosphorus Level 5.9 H Magnesium Level 2.2 Test 09/08/18 08:40 Bedside Glucose 106 Consultation Date/Type/Reason Admit Date/Time Aug 20, 2018 at 21:39 Initial Consult Date 08/21/18 Requesting Provider: YUMIKO JC MD 24 HR Interval Summary Constitutional: other (more alert) Detailed Summary Respiratory: shortness of breath Cardiovascular: No chest pain Gastrointestinal: no complaints Exam/Review of Systems Vital Signs Vitals Vital Signs Date Temp Pulse Resp B/P (MAP) Pulse Ox O2 O2 Flow FiO2 Time Delivery Rate 09/08/18 98.2 67 16 117/71 100 07:27 (86) 09/07/18 Room Air 14:17 09/05/18 2.0 20:00 Intake and Output 09/07/18 09/07/18 09/08/18 1515:00 23:00 07:00 IntakeIntake Total 1080 ml 770 ml 1210 ml OutputOutput Total 1400 ml 1200 ml BalanceBalance 1080 ml -630 ml 10 ml Exam Neck: No jvd Respiratory: clear to auscultation, diminished breath sounds Cardiovascular: regular rate and rhythm Gastrointestinal: soft Extremities: edema (sacral edema is less) Neurological: other (can raise arms a bit more then yesterday, can move right ankle, not left) Medications Medications Current Medications Albuterol (Ventolin Hfa) 4 puff Q2H RESP THERAPY PRN INH SHORTNESS OF BREATH; Start 08/20/18 at 22:00 Ipratropium [place] (Atrovent Hfa) 4 puff Q2H RESP THERAPY PRN INH SHORTNESS OF BREATH; Start 08/20/18 at 22:00 Acetaminophen (Tylenol Liquid) 650 mg Q6H PRN PO PAIN LEVEL 1-3 OR FEVER Last administered on 09/06/18at 20:11; Admin Dose 650 MG; Start 08/20/18 at 22:00 Miscellaneous Information 1 ea NOTE XX ; Start 08/21/18 at 16:30 Glucose (Glutose) 15 gm Q15M PRN PO DECREASED GLUCOSE; Start 08/21/18 at 16:30 Glucose (Glutose) 22.5 gm Q15M PRN PO DECREASED GLUCOSE; Start 08/21/18 at 16:30 Dextrose (D50w Syringe) 25 ml Q15M PRN IV DECREASED GLUCOSE; Start 08/21/18 at 16:30 Dextrose (D50w Syringe) 50 ml Q15M PRN IV DECREASED GLUCOSE; Start 08/21/18 at 16:30 Glucagon (Glucagen) 1 mg Q15M PRN IM DECREASED GLUCOSE; Start 08/21/18 at 16:30 Glucose (Glutose) 15 gm Q15M PRN BUCCAL DECREASED GLUCOSE; Start 08/21/18 at 16:30 Metoprolol Tartrate (Lopressor) 25 mg BID PO Last administered on 09/07/18at 20:50; Admin Dose 25 MG; Start 08/23/18 at 21:00 Epinephrine (Racepinephrine 2.25% (Neb)) 0.25 ml Q3H RESP THERAPY PRN HHN STRIDOR; Start 08/23/18 at 17:00 Ondansetron HCl (Zofran Inj) 4 mg Q6H PRN IV NAUSEA AND/OR VOMITING Last administered on 08/25/18at 21:47; Admin Dose 4 MG; Start 08/25/18 at 21:30 Diagnostic Test (Pha) (Accu-Chek) 1 XX ; Start 08/27/18 at 02:00 Vancomycin HCl (Vanco Iv Per Pharmacy) VANCOMYCIN PER PHARMACY PER PROTOCOL XX ; Start 08/27/18 at 11:30 Heparin Sodium (Porcine) (Heparin (5000 Units/1ml)) 5,000 unit Q8 SC Last administered on 09/01/18at 14:27; Admin Dose 5,000 UNIT; Start 08/29/18 at 14:00; Status Hold Epoetin Isacc (Epogen (Non Esrd/Non Oncology)) 10,000 units MoWeFr@17 SC Last administered on 09/07/18at 18:06; Admin Dose 10,000 UNITS; Start 08/29/18 at 17:00 Albumin Human 50 ml @ 100 mls/hr DURING DIALYSIS PRN IV During HD. Last administered on 08/29/18at 13:55; Admin Dose 100 MLS/HR; Start 08/29/18 at 12:30 Aspirin (Aspirin) 81 mg DAILY PO Last administered on 09/03/18at 08:37; Admin Dose 81 MG; Start 08/30/18 at 09:00; Status Hold Calcium Acetate (Phoslo) 1,334 mg WITH MEALS GTB Last administered on 09/08/18 09:00; Admin Dose 1,334 MG; Start 08/31/18 at 12:00 Heparin Sodium (Porcine) (Heparin (1000 Units/ml)) 3,000 unit AFTER DIALYSIS CATHETER Last administered on 09/05/18at 10:12; Admin Dose 3,000 UNIT; Start 09/01/18 at 12:30 Sucralfate (Carafate Susp) 1 gm QID PO Last administered on 09/08/18 09:00; Admin Dose 1 GM; Start 09/01/18 at 16:00 Pantoprazole (Protonix Iv) 40 mg BID@06,18 IV Last administered on 09/08/18 06:19; Admin Dose 40 MG; Start 09/01/18 at 18:00 Insulin Aspart (Novolog Insulin Pen) (Adult SC Insulin - Mild Algorithm)... AC MEALS AND BEDTIME SC ; Start 09/03/18 at 07:00 Vancomycin HCl 250 ml @ 125 mls/hr Q96H IVPB Last administered on 09/07/18at 21:38; Admin Dose 125 MLS/HR; Start 09/07/18 at 21:00 Meropenem/Sodium Chloride 50 ml @ 100 mls/hr Q24H IVPB Last administered on 09/07/18at 20:49; Admin Dose 100 MLS/HR; Start 09/06/18 at 19:30 Sevelamer Carbonate (Renvela) 800 mg WITH MEALS PO Last administered on 09/08/18 09:00; Admin Dose 800 MG; Start 09/07/18 at 12:00 MAXIMO TAY MD Sep 08, 2018 09:39
--- NOTE | 2018-09-08 11:03 | CONS ---
Date/Time of Note Date/Time of Note DATE: 09/08/18 TIME: 10:58 Assessment/Plan Assessment/Plan Hospital Course No acute changes, patient looks comfortable, no fevers overnight Culture of right femoral Saurabh catheter site growing Pseudomonas, Enterococcus and Enterobacter Antimicrobials: Vanco Merrem Indwelling: Right femoral Saurabh, Suh Physical examination: Well-nourished well-developed middle-aged man who is in no distress. Head atraumatic normocephalic sclera nonicteric. Neck is supple chest rise symmetrical breath sounds diminished bases. Heart: S1-S2, tachycardic. Abdomen soft bowel sounds present. Extremities with bilateral edema Assessment: 1. Systemic inflammatory response syndrome with leukocytosis and ongoing fevers, likely line sepsis 2. Status post Gram-positive cocci bacteremia, possibly line sepsis, s/p TLC dc'd 3. Status post acute encephalopathy 4. Status post acute hypoxemic respiratory failure 5. Pulmonary edema 6. Acute renal failure, on hemodialysis 7. Severe anasarca 8. History of polysubstance abuse 9. Muscle weakness Plan: Clinically stable, MRI C spine noted, pt is being f/u by neurology, per jos Monson kidney function is getting better and pt may not need HD anymore, will change abx to Zyvox and Levaquin, await for saurabh dc today JOS Monson Result Diagram: 09/08/18 0443 09/08/18 0443 Results 24hrs Laboratory Tests Test 09/07/18 12:41 09/07/18 17:45 09/07/18 20:52 09/08/18 04:43 Bedside Glucose 102 97 110 White Blood Count 12.6 H Red Blood Count 3.15 L Hemoglobin 9.9 L Hematocrit 29.5 L Mean Corpuscular Volume 93.7 Mean Corpuscular 31.4 Hemoglobin Mean Corpuscular 33.6 Hemoglobin Concent Red Cell Distribution 14.3 Width Platelet Count 458 H Mean Platelet Volume 10.0 Immature Granulocytes % 1.800 H Neutrophils % 69.2 Lymphocytes % 12.3 L Monocytes % 8.4 Eosinophils % 7.3 H Basophils % 1.0 Nucleated Red Blood 0.0 Cells % Immature Granulocytes # 0.220 H Neutrophils # 8.7 H Lymphocytes # 1.5 Monocytes # 1.1 H Eosinophils # 0.9 H Basophils # 0.1 Nucleated Red Blood 0.0 Cells # Sodium Level 140 Potassium Level 4.0 Chloride Level 99 Carbon Dioxide Level 28 Anion Gap 13 Blood Urea Nitrogen 54 H Creatinine 4.43 #H Est Glomerular Filtrat 15 L Rate mL/min Glucose Level 109 Calcium Level 9.1 Phosphorus Level 5.9 H Magnesium Level 2.2 Test 09/08/18 08:40 Bedside Glucose 106 Consultation Date/Type/Reason Admit Date/Time Aug 20, 2018 at 21:39 Initial Consult Date 08/21/18 Type of Consult id Requesting Provider: YUMIKO JC MD Exam/Review of Systems Vital Signs Vitals Vital Signs Date Temp Pulse Resp B/P (MAP) Pulse Ox O2 O2 Flow FiO2 Time Delivery Rate 09/08/18 98.2 67 16 117/71 100 07:27 (86) 09/07/18 Room Air 14:17 09/05/18 2.0 20:00 Intake and Output 09/07/18 09/07/18 09/08/18 1515:00 23:00 07:00 IntakeIntake Total 1080 ml 770 ml 1210 ml OutputOutput Total 1400 ml 1200 ml BalanceBalance 1080 ml -630 ml 10 ml Medications Medications Current Medications Albuterol (Ventolin Hfa) 4 puff Q2H RESP THERAPY PRN INH SHORTNESS OF BREATH; Start 08/20/18 at 22:00 Ipratropium [place] (Atrovent Hfa) 4 puff Q2H RESP THERAPY PRN INH SHORTNESS OF BREATH; Start 08/20/18 at 22:00 Acetaminophen (Tylenol Liquid) 650 mg Q6H PRN PO PAIN LEVEL 1-3 OR FEVER Last administered on 09/06/18at 20:11; Admin Dose 650 MG; Start 08/20/18 at 22:00 Miscellaneous Information 1 ea NOTE XX ; Start 08/21/18 at 16:30 Glucose (Glutose) 15 gm Q15M PRN PO DECREASED GLUCOSE; Start 08/21/18 at 16:30 Glucose (Glutose) 22.5 gm Q15M PRN PO DECREASED GLUCOSE; Start 08/21/18 at 16:30 Dextrose (D50w Syringe) 25 ml Q15M PRN IV DECREASED GLUCOSE; Start 08/21/18 at 16:30 Dextrose (D50w Syringe) 50 ml Q15M PRN IV DECREASED GLUCOSE; Start 08/21/18 at 16:30 Glucagon (Glucagen) 1 mg Q15M PRN IM DECREASED GLUCOSE; Start 08/21/18 at 16:30 Glucose (Glutose) 15 gm Q15M PRN BUCCAL DECREASED GLUCOSE; Start 08/21/18 at 16:30 Metoprolol Tartrate (Lopressor) 25 mg BID PO Last administered on 09/07/18 20:50; Admin Dose 25 MG; Start 08/23/18 at 21:00 Epinephrine (Racepinephrine 2.25% (Neb)) 0.25 ml Q3H RESP THERAPY PRN HHN STRIDOR; Start 08/23/18 at 17:00 Ondansetron HCl (Zofran Inj) 4 mg Q6H PRN IV NAUSEA AND/OR VOMITING Last administered on 08/25/18at 21:47; Admin Dose 4 MG; Start 08/25/18 at 21:30 Diagnostic Test (Pha) (Accu-Chek) XX ; Start 08/27/18 at 02:00 Vancomycin HCl (Vanco Iv Per Pharmacy) VANCOMYCIN PER PHARMACY PER PROTOCOL XX ; Start 08/27/18 at 11:30 Heparin Sodium (Porcine) (Heparin (5000 Units/1ml)) 5,000 unit Q8 SC Last administered on 09/01/18at 14:27; Admin Dose 5,000 UNIT; Start 08/29/18 at 14:00; Status Hold Epoetin Isacc (Epogen (Non Esrd/Non Oncology)) 10,000 units MoWeFr@17 SC Last administered on 09/07/18 18:06; Admin Dose 10,000 UNITS; Start 08/29/18 at 17:00 Albumin Human 50 ml @ 100 mls/hr DURING DIALYSIS PRN IV During HD. Last administered on 08/29/18at 13:55; Admin Dose 100 MLS/HR; Start 08/29/18 at 12 :30 Aspirin (Aspirin) 81 mg DAILY PO Last administered on 09/03/18at 08:37; Admin Dose 81 MG; Start 08/30/18 at 09:00; Status Hold Calcium Acetate (Phoslo) 1,334 mg WITH MEALS GTB Last administered on 09/08/18 09:00; Admin Dose 1,334 MG; Start 08/31/18 at 12:00 Heparin Sodium (Porcine) (Heparin (1000 Units/ml)) 3,000 unit AFTER DIALYSIS CATHETER Last administered on 09/05/18at 10:12; Admin Dose 3,000 UNIT; Start 09/01/18 at 12:30 Sucralfate (Carafate Susp) 1 gm QID PO Last administered on 09/08/18at 09:00; Admin Dose 1 GM; Start 09/01/18 at 16:00 Pantoprazole (Protonix Iv) 40 mg BID@06,18 IV Last administered on 09/08/18at 06:19; Admin Dose 40 MG; Start 09/01/18 at 18:00 Insulin Aspart (Novolog Insulin Pen) (Adult SC Insulin - Mild Algorithm)... AC MEALS AND BEDTIME SC ; Start 09/03/18 at 07:00 Vancomycin HCl 250 ml @ 125 mls/hr Q96H IVPB Last administered on 09/07/18at 21:38; Admin Dose 125 MLS/HR; Start 09/07/18 at 21:00 Meropenem/Sodium Chloride 50 ml @ 100 mls/hr Q24H IVPB Last administered on 09/07/18at 20:49; Admin Dose 100 MLS/HR; Start 09/06/18 at 19:30 BRIANNE COYLE NP Sep 08, 2018 11:03
--- NOTE | 2018-09-08 13:59 | PN ---
Date/Time of Note Date/Time of Note DATE: 09/08/18 TIME: 13:55 Assessment/Plan VTE Prophylaxis Risk score (from Nsg)>0 risk: 7 SCD applied (from Nsg): Yes Pharmacological prophylaxis: other Lines/Catheters IV Catheter Type (from Nrsg): HORTENSIA CATH Urinary Cath still in place: Yes Reason Cath still needed: urinary retention Assessment/Plan Hospital Course S: Patient had dialysis yesterday, awaiting another session today. No acute events overnight. Seen by PT, ID, and renal teams today. O: VS - see below PE: Gen: Lying in bed, a bit more alert, but still overall lethargic Eyes: Pupils equal round reactive to light, extraocular muscles intact HEENT: ET tube in place, moist mucous membranes, Card: Regular rate and rhythm no murmurs Pulm: Mechanical breath sounds bilaterally, no crackles. Abd: Soft, nondistended. Ext: No cyanosis/clubbing/edema Assessment/Plan: 33 yo man brought in found down with subsequent JULIAN secondary to rhabdomyolysis; positive for alcohol, methamphetamine, cannabis, opioids as well. # Renal failure- Oliguric renal failure with hyperkalemia (after potassium replacement), also presented with severe metabolic acidosis- Likely due to a combination of rhabdo and drug use. CK levels normal now, but patient has been dialysis dependent. - Continue dialysis per renal recommendations -Per discussion with the renal and ID teams, after dialysis today we will pull likely infected Hortensia catheter and observe. Patient may be having adequate renal recovery at this point, per renal documentation, and may not need another catheter insertion, will monitor #Hematochezia- Nurse reported maroon colored stool on 09/01- EGD 09/02 only with mild gastritis and distal esophagitis- MD witnessed maroon colored, grainy stool on 09/03. Rectal exam negative for external hemorrhoids or palpable internal hemorrhoids. Colonoscopy showed solitary rectal ulcer syndrome, bleeding likely from the rectal ulcer. -For now continue PPI BID and carafate, follow-up GI recommendations -Monitor hemoglobin, improved after PRBC transfusion given 3 days ago #Encephalopathy and Polyneuropathy- Despite extubation on 08/24, he remains lethargic and weak.- Head CT 08/20 negative- Repeat CT on 08/31 shows some edema of the basal ganglia, confirmed on MRI, this likely represents residual toxic metabolic effect - TSH, ammonia, AM cortisol are normal. 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 -Monitor, follow-up recommendations from neurology - following. -Reorient as needed #Bacteremia- Had fever on 08/27 - Blood culture (x1 unfortunately) from that day is growing coag negative staph, a common contaminant. Repeat blood culture negative.- D/Matias right IJ. But his femoral dialysis catheter may also be a source of infection -and now in fact his wound culture from the groin area where the dialysis catheter is, is growing positive Pseudomonas and 2 other Enterobacter species. -Continue now Levaquin as ordered today by ID team - Follow-up ID recommendations -again Hortensia line to be removed after dialysis today # acute respiratory failure- extubated 08/24, was likely secondary to polysubstance overdose resulting in multiorgan dysfunction; patient had subsequent severe metabolic acidosis with inadequate respiratory compensation- now oxygen levels stable - s/p course of zosyn for CAP -Monitor, continue oxygen supplementation as needed # Elevated troponin-now appears stable- CV consulted earlier this admission. Likely demand ischemia from drug use. - Will not treat per NSTEMI protocol, monitor, follow-up cardiology recommendations # transaminitis: - May be from shock liver or drug use.- Hep B, Hep C negative. LFTs have trended down. # Rhabdomyolysis - resolved # Coagulopathy- May be due to liver and renal injury as well as drug use- No DIC. Resolved. # polysubstance abuse - Again patient was found to be positive for opioids, methamphetamine, marijuana and an elevated blood alcohol level. -Earlier this admission ordered for thiamine 300 mg IM daily times 3 days, further treatment as per the clinical course # DVT and GI prophylaxis: Protonix twice daily Result Diagram: 09/08/18 0443 09/08/18 0443 Results 24hrs Laboratory Tests Test 09/07/18 17:45 09/07/18 20:52 09/08/18 04:43 09/08/18 08:40 Bedside Glucose 97 110 106 White Blood Count 12.6 H Red Blood Count 3.15 L Hemoglobin 9.9 L Hematocrit 29.5 L Mean Corpuscular Volume 93.7 Mean Corpuscular 31.4 Hemoglobin Mean Corpuscular 33.6 Hemoglobin Concent Red Cell Distribution 14.3 Width Platelet Count 458 H Mean Platelet Volume 10.0 Immature Granulocytes % 1.800 H Neutrophils % 69.2 Lymphocytes % 12.3 L Monocytes % 8.4 Eosinophils % 7.3 H Basophils % 1.0 Nucleated Red Blood 0.0 Cells % Immature Granulocytes # 0.220 H Neutrophils # 8.7 H Lymphocytes # 1.5 Monocytes # 1.1 H Eosinophils # 0.9 H Basophils # 0.1 Nucleated Red Blood 0.0 Cells # Sodium Level 140 Potassium Level 4.0 Chloride Level 99 Carbon Dioxide Level 28 Anion Gap 13 Blood Urea Nitrogen 54 H Creatinine 4.43 #H Est Glomerular Filtrat 15 L Rate mL/min Glucose Level 109 Calcium Level 9.1 Phosphorus Level 5.9 H Magnesium Level 2.2 Test 09/08/18 12:37 Bedside Glucose 144 Exam/Review of Systems Vital Signs Vitals Vital Signs Date Temp Pulse Resp B/P (MAP) Pulse Ox O2 O2 Flow FiO2 Time Delivery Rate 09/08/18 98.2 74 16 119/76 100 13:51 (90) 09/07/18 Room Air 14:17 09/05/18 2.0 20:00 Intake and Output 09/07/18 09/07/18 09/08/18 1515:00 23:00 07:00 IntakeIntake Total 1080 ml 770 ml 1210 ml OutputOutput Total 1400 ml 1200 ml BalanceBalance 1080 ml -630 ml 10 ml Medications Medications Current Medications Albuterol (Ventolin Hfa) 4 puff Q2H RESP THERAPY PRN INH SHORTNESS OF BREATH; Start 08/20/18 at 22:00 Ipratropium [place] (Atrovent Hfa) 4 puff Q2H RESP THERAPY PRN INH SHORTNESS OF BREATH; Start 08/20/18 at 22:00 Acetaminophen (Tylenol Liquid) 650 mg Q6H PRN PO PAIN LEVEL 1-3 OR FEVER Last administered on 09/06/18at 20:11; Admin Dose 650 MG; Start 08/20/18 at 22:00 Miscellaneous Information 1 ea NOTE XX ; Start 08/21/18 at 16:30 Glucose (Glutose) 15 gm Q15M PRN PO DECREASED GLUCOSE; Start 08/21/18 at 16:30 Glucose (Glutose) 22.5 gm Q15M PRN PO DECREASED GLUCOSE; Start 08/21/18 at 16:30 Dextrose (D50w Syringe) 25 ml Q15M PRN IV DECREASED GLUCOSE; Start 08/21/18 at 16:30 Dextrose (D50w Syringe) 50 ml Q15M PRN IV DECREASED GLUCOSE; Start 08/21/18 at 16:30 Glucagon (Glucagen) 1 mg Q15M PRN IM DECREASED GLUCOSE; Start 08/21/18 at 16:30 Glucose (Glutose) 15 gm Q15M PRN BUCCAL DECREASED GLUCOSE; Start 08/21/18 at 1 6:30 Metoprolol Tartrate (Lopressor) 25 mg BID PO Last administered on 09/07/18 20:50; Admin Dose 25 MG; Start 08/23/18 at 21:00 Epinephrine (Racepinephrine 2.25% (Neb)) 0.25 ml Q3H RESP THERAPY PRN HHN STRIDOR; Start 08/23/18 at 17:00 Ondansetron HCl (Zofran Inj) 4 mg Q6H PRN IV NAUSEA AND/OR VOMITING Last administered on 08/25/18at 21:47; Admin Dose 4 MG; Start 08/25/18 at 21:30 Diagnostic Test (Pha) (Accu-Chek) 1 ea 02 XX ; Start 08/27/18 at 02:00 Heparin Sodium (Porcine) (Heparin (5000 Units/1ml)) 5,000 unit Q8 SC Last administered on 09/01/18at 14:27; Admin Dose 5,000 UNIT; Start 08/29/18 at 14:00; Status Hold Epoetin Isacc (Epogen (Non Esrd/Non Oncology)) 10,000 units MoWeFr@17 SC Last administered on 09/07/18 18:06; Admin Dose 10,000 UNITS; Start 08/29/18 at 17:00 Albumin Human 50 ml @ 100 mls/hr DURING DIALYSIS PRN IV During HD. Last administered on 08/29/18at 13:55; Admin Dose 100 MLS/HR; Start 08/29/18 at 12:30 Aspirin (Aspirin) 81 mg DAILY PO Last administered on 09/03/18at 08:37; Admin Dose 81 MG; Start 08/30/18 at 09:00; Status Hold Calcium Acetate (Phoslo) 1,334 mg WITH MEALS GTB Last administered on 09/08/18 12:38; Admin Dose 1,334 MG; Start 08/31/18 at 12:00 Heparin Sodium (Porcine) (Heparin (1000 Units/ml)) 3,000 unit AFTER DIALYSIS CATHETER Last administered on 09/05/18at 10:12; Admin Dose 3,000 UNIT; Start 09/01/18 at 12:30 Sucralfate (Carafate Susp) 1 gm QID PO Last administered on 09/08/18at 12:38; Admin Dose 1 GM; Start 09/01/18 at 16:00 Pantoprazole (Protonix Iv) 40 mg BID@18 IV Last administered on 09/08/18at 06:19; Admin Dose 40 MG; Start 09/01/18 at 18:00 Insulin Aspart (Novolog Insulin Pen) (Adult SC Insulin - Mild Algorithm)... AC MEALS AND BEDTIME SC ; Start 09/03/18 at 07:00 Linezolid (Zyvox) 600 mg BID PO ; Start 09/08/18 at 12:30 Levofloxacin (Levaquin) 250 mg Q2D@0600 PO ; Start 09/08/18 at 15:00 CINTIA ESPINOSA Sep 08, 2018 13:59
--- NOTE | 2018-09-08 14:56 | CONS ---
Assessment/Plan Assessment/Plan Hospital Course A: 33 yo M with uncertain PMH who presents for evaluation of altered mental status..for which neurology is consulted.. UDS + for amphetamines, opioids, EtOH, cannabis He was reported to be severely hypoglycemic in the field. JULIAN+ CK++++ Clinically consistent with an acute and multifactorial toxic-metabolic encephalopathy. Stroke is unlikely. Seizure is unlikely. CTH (08/20) was unrevealing. Repeat CTH was most notable for bilateral globus pallidus edema MRI is notable for sequelae of a toxic-metabolic insult.. As an aside, he has profound 4-limb weakness on exam, which does not appear to be improving w/ his mental status.. MRI C spine was most notable for signal changes within the paraspinal m usculature of C3-C4 through C5-C6... which is likely a sequelae of rhabdomyolysis. P: Ok to defer additional neuroimaging for now. Cont medical management per primary Reorient as necessary Limit sedating medications where possible Will follow clinically, to make further neurologic recommendations as necessary Result Diagram: 09/08/18 0443 09/08/18 0443 Results 24hrs Laboratory Tests Test 09/07/18 17:45 09/07/18 20:52 09/08/18 04:43 09/08/18 08:40 Bedside Glucose 97 110 106 White Blood Count 12.6 H Red Blood Count 3.15 L Hemoglobin 9.9 L Hematocrit 29.5 L Mean Corpuscular Volume 93.7 Mean Corpuscular 31.4 Hemoglobin Mean Corpuscular 33.6 Hemoglobin Concent Red Cell Distribution 14.3 Width Platelet Count 458 H Mean Platelet Volume 10.0 Immature Granulocytes % 1.800 H Neutrophils % 69.2 Lymphocytes % 12.3 L Monocytes % 8.4 Eosinophils % 7.3 H Basophils % 1.0 Nucleated Red Blood 0.0 Cells % Immature Granulocytes # 0.220 H Neutrophils # 8.7 H Lymphocytes # 1.5 Monocytes # 1.1 H Eosinophils # 0.9 H Basophils # 0.1 Nucleated Red Blood 0.0 Cells # Sodium Level 140 Potassium Level 4.0 Chloride Level 99 Carbon Dioxide Level 28 Anion Gap 13 Blood Urea Nitrogen 54 H Creatinine 4.43 #H Est Glomerular Filtrat 15 L Rate mL/min Glucose Level 109 Calcium Level 9.1 Phosphorus Level 5.9 H Magnesium Level 2.2 Test 09/08/18 12:37 Bedside Glucose 144 Consultation Date/Type/Reason Admit Date/Time Aug 20, 2018 at 21:39 Type of Consult Neurology Reason for Consultation lethargy/weakness Requesting Provider: YUMIKO JC MD Date/Time of Note DATE: 09/08/18 TIME: 14:56 24 HR Interval Summary Free Text/Dictation Continues medsurg monitoring. S/p MRI C spine. Pt continues to endorse weakness. Exam Vital Signs Vitals Vital Signs Date Temp Pulse Resp B/P (MAP) Pulse Ox O2 O2 Flow FiO2 Time Delivery Rate 09/08/18 98.2 74 16 119/76 100 13:51 (90) 09/07/18 Room Air 14:17 09/05/18 2.0 20:00 Intake and Output 09/07/18 09/07/18 09/08/18 1515:00 23:00 07:00 IntakeIntake Total 1080 ml 770 ml 1210 ml OutputOutput Total 1400 ml 1200 ml BalanceBalance 1080 ml -630 ml 10 ml Exam PE: Gen Appearance: No Apparent Distress HEENT: Normocephalic Cardiovascular: Regular rate Abdomen: Soft Extremities: Dry NE: The patient was lethargic, sparsely verbal...able to follow simple appendicular commands.. Cranial nerve examination was limited by mental status. Pupils were equal and reactive to light. There was no afferent pupillary defect. Funduscopic examination was limited. Face was grossly symmetric, w/ present corneal and cough reflexes. Tone was normal. Muscle bulk was normal. I did not see fasciculations. The patient wiggled his fingers b/l and his toes on the left; he was otherwise severely weak. Coordination and gait testing was limited by weakness.. Arm and leg reflexes were brisk in the right arm and left leg. Phillips's sign was absent. Plantar responses were mute.. TIN GUIDO NP Sep 08, 2018 14:56 GEOVANNI BANKS Sep 08, 2018 19:30
[2018-09-08] MEDS: LEVOFLOXACIN 250 MG TAB PO SCH (15:20)
[2018-09-08] MEDS: ZYVOX 600 MG TAB PO SCH ×2 (15:20→21:16)
[2018-09-08] MEDS ORDERED: ALBUMIN HUMAN 25% 100 ML IV ONE (17:00)
[2018-09-09] MEDS: ACCU-CHEK XX SCH (02:00)
[2018-09-09 02:15] VITALS: BP 105/63; PULSE 77; RESP 18
[2018-09-09] MEDS: INSULIN ASPART [NOVOLOG] 3 ML PEN SC SCH ×4 (07:00→21:00)
[2018-09-09 07:41] VITALS: BP 117/70; PULSE 73; RESP 16
--- NOTE | 2018-09-09 08:47 | CONS ---
Date/Time of Note Date/Time of Note DATE: 09/09/18 TIME: 08:33 Assessment/Plan Assessment/Plan Assessment/Plan 1. ARF is resolving. 2. Dialysis fem catheter to be removed today 3. Neuro defecit is unchanged, ? related to cx spine paraspinal muscle edema, consider obtaining neurosurgical comments, ?? steroids 4. Abx per ID Result Diagram: 09/09/18 0652 09/09/18 0652 Results 24hrs Laboratory Tests Test 09/08/18 08:40 09/08/18 12:37 09/08/18 17:24 09/08/18 21:20 Bedside Glucose 106 144 99 110 Test 09/09/18 06:52 White Blood Count 14.2 H Red Blood Count 3.26 L Hemoglobin 10.2 L Hematocrit 30.7 L Mean Corpuscular Volume 94.2 Mean Corpuscular 31.3 Hemoglobin Mean Corpuscular 33.2 Hemoglobin Concent Red Cell Distribution 14.3 Width Platelet Count 432 H Mean Platelet Volume 9.9 Immature Granulocytes % 2.600 H Neutrophils % 66.1 Lymphocytes % 13.1 L Monocytes % 8.7 Eosinophils % 8.4 H Basophils % 1.1 Nucleated Red Blood 0.1 H Cells % Immature Granulocytes # 0.370 H Neutrophils # 9.4 H Lymphocytes # 1.9 Monocytes # 1.2 H Eosinophils # 1.2 H Basophils # 0.2 H Nucleated Red Blood 0.0 Cells # Sodium Level 138 Potassium Level 4.3 Chloride Level 96 L Carbon Dioxide Level 30 Anion Gap 12 Blood Urea Nitrogen 42 #H Creatinine 3.43 #H Est Glomerular Filtrat 21 L Rate mL/min Glucose Level 107 Calcium Level 9.6 Phosphorus Level 4.8 Magnesium Level 2.0 Consultation Date/Type/Reason Admit Date/Time Aug 20, 2018 at 21:39 Initial Consult Date 08/21/18 Requesting Provider: YUMIKO JC MD 24 HR Interval Summary Constitutional: other (Alert and can follow simple commands) Detailed Summary Cardiovascular: No chest pain Gastrointestinal: No pain Genitourinary: other (schwartz in place) Exam/Review of Systems Vital Signs Vitals Vital Signs Date Temp Pulse Resp B/P (MAP) Pulse Ox O2 O2 Flow FiO2 Time Delivery Rate 09/09/18 98.1 73 16 117/70 97 07:41 (86) 09/08/18 Room Air 19:11 09/05/18 2.0 20:00 Intake and Output 09/08/18 09/08/18 09/09/18 1414:59 22:59 06:59 IntakeIntake Total 1040 ml 120 ml OutputOutput Total 4700 ml BalanceBalance 1040 ml -4580 ml Exam Neck: No jvd Respiratory: diminished breath sounds Cardiovascular: regular rate and rhythm Gastrointestinal: soft Extremities: edema (brawny edema of upper extrem, no lower extrem or sacral edema) Neurological: other (no change in strength of upper extrem, can move left toe, not right) Medications Medications Current Medications Albuterol (Ventolin Hfa) 4 puff Q2H RESP THERAPY PRN INH SHORTNESS OF BREATH; Start 08/20/18 at 22:00 Ipratropium [place] (Atrovent Hfa) 4 puff Q2H RESP THERAPY PRN INH SHORTNESS OF BREATH; Start 08/20/18 at 22:00 Acetaminophen (Tylenol Liquid) 650 mg Q6H PRN PO PAIN LEVEL 1-3 OR FEVER Last administered on 09/06/18at 20:11; Admin Dose 650 MG; Start 08/20/18 at 22:00 Miscellaneous Information 1 ea NOTE XX ; Start 08/21/18 at 16:30 Glucose (Glutose) 15 gm Q15M PRN PO DECREASED GLUCOSE; Start 08/21/18 at 16:30 Glucose (Glutose) 22.5 gm Q15M PRN PO DECREASED GLUCOSE; Start 08/21/18 at 16:30 Dextrose (D50w Syringe) 25 ml Q15M PRN IV DECREASED GLUCOSE; Start 08/21/18 at 16:30 Dextrose (D50w Syringe) 50 ml Q15M PRN IV DECREASED GLUCOSE; Start 08/21/18 at 16:30 Glucagon (Glucagen) 1 mg Q15M PRN IM DECREASED GLUCOSE; Start 08/21/18 at 16:30 Glucose (Glutose) 15 gm Q15M PRN BUCCAL DECREASED GLUCOSE; Start 08/21/18 at 16:30 Metoprolol Tartrate (Lopressor) 25 mg BID PO Last administered on 09/08/18at 21:16; Admin Dose 25 MG; Start 08/23/18 at 21:00 Epinephrine (Racepinephrine 2.25% (Neb)) 0.25 ml Q3H RESP THERAPY PRN HHN STRIDOR; Start 08/23/18 at 17:00 Ondansetron HCl (Zofran Inj) 4 mg Q6H PRN IV NAUSEA AND/OR VOMITING Last administered on 08/25/18at 21:47; Admin Dose 4 MG; Start 08/25/18 at 21:30 Diagnostic Test (Pha) (Accu-Chek) 1 ea 02 XX ; Start 08/27/18 at 02:00 Heparin Sodium (Porcine) (Heparin (5000 Units/1ml)) 5,000 unit Q8 SC Last administered on 09/01/18at 14:27; Admin Dose 5,000 UNIT; Start 08/29/18 at 14:00; Status Hold Epoetin Isacc (Epogen (Non Esrd/Non Oncology)) 10,000 units MoWeFr@17 SC Last administered on 09/07/18 18:06; Admin Dose 10,000 UNITS; Start 08/29/18 at 17:00 Albumin Human 50 ml @ 100 mls/hr DURING DIALYSIS PRN IV During HD. Last administered on 08/29/18at 13:55; Admin Dose 100 MLS/HR; Start 08/29/18 at 12:30 Aspirin (Aspirin) 81 mg DAILY PO Last administered on 09/03/18at 08:37; Admin Dose 81 MG; Start 08/30/18 at 09:00; Status Hold Calcium Acetate (Phoslo) 1,334 mg WITH MEALS GTB Last administered on 09/08/18 17:25; Admin Dose 1,334 MG; Start 08/31/18 at 12:00 Heparin Sodium (Porcine) (Heparin (1000 Units/ml)) 3,000 unit AFTER DIALYSIS CATHETER Last administered on 09/05/18at 10:12; Admin Dose 3,000 UNIT; Start 09/01/18 at 12:30 Sucralfate (Carafate Susp) 1 gm QID PO Last administered on 09/08/18 21:15; Admin Dose 1 GM; Start 09/01/18 at 16:00 Pantoprazole (Protonix Iv) 40 mg BID@06,18 IV Last administered on 09/08/18 17:25; Admin Dose 40 MG; Start 09/01/18 at 18:00 Insulin Aspart (Novolog Insulin Pen) (Adult SC Insulin - Mild Algorithm)... AC MEALS AND BEDTIME SC ; Start 09/03/18 at 07:00 Linezolid (Zyvox) 600 mg BID PO Last administered on 09/08/18at 21:16; Admin Dose 600 MG; Start 09/08/18 at 12:30 Levofloxacin (Levaquin) 250 mg Q2D@0600 PO Last administered on 09/08/18at 15:20; Admin Dose 250 MG; Start 09/08/18 at 15:00 MAXIMO TAY MD Sep 09, 2018 08:43
[2018-09-09] MEDS: PANTOPRAZOLE 40 MG INJ IV SCH ×2 (09:20→18:07)
[2018-09-09] MEDS: SUCRALFATE (100 MG/ML) 10ML CUP PO SCH ×4 (09:20→21:33)
[2018-09-09] MEDS: ZYVOX 600 MG TAB PO SCH ×2 (09:20→21:33)
[2018-09-09] MEDS: CALCIUM ACETATE 667 MG CAP GTB SCH ×3 (09:20→18:06)
[2018-09-09] MEDS: METOPROLOL 25 MG TAB PO SCH ×2 (09:22→21:33)
--- NOTE | 2018-09-09 09:25 | PN ---
Date/Time of Note Date/Time of Note DATE: 09/09/18 TIME: 09:25 Assessment/Plan VTE Prophylaxis Risk score (from Ns)>0 risk: 7 SCD applied (from Ns): No SCD contraindicated: other Pharmacological prophylaxis: heparin Lines/Catheters IV Catheter Type (from [facility], [place]): Central Line Central line still needed: Yes Urinary Cath still in place: Yes Reason Cath still needed: urinary retention Assessment/Plan Hospital Course S: Patient had dialysis, then the Saurabh catheter was pulled earlier today. Seen by renal, neurology, cardiology team as well as occupational therapy teams earlier today. O: VS - see below PE: Gen: Lying in bed, a bit more alert, but still overall lethargic Eyes: Pupils equal round reactive to light, extraocular muscles intact HEENT: PERRL, moist mucous membranes, Card: Regular rate and rhythm no murmurs Pulm: CTA bilaterally, no crackles. Abd: Soft, nondistended. Ext: No cyanosis/clubbing/edema Assessment/Plan: 33 yo man brought in found down with subsequent JULIAN secondary to rhabdomyolysis; positive for alcohol, methamphetamine, cannabis, opioids as well. # Renal failure- Oliguric renal failure with hyperkalemia (after potassium replacement), also presented with severe metabolic acidosis- Likely due to a combination of rhabdo and drug use. CK levels normal now, but patient has been dialysis dependent. - Continue dialysis per renal recommendations -Per discussion with the renal and ID teams, after dialysis today we will pull likely infected Saurabh catheter and observe. Patient may be having adequate renal recovery at this point, per renal documentation, and may not need another catheter insertion, will monitor #Hematochezia- Nurse reported maroon colored stool on 09/01- EGD 09/02 only with mild gastritis and distal esophagitis- MD witnessed maroon colored, grainy stool on 09/03. Rectal exam negative for external hemorrhoids or palpable internal hemorrhoids. Colonoscopy showed solitary rectal ulcer syndrome, bleeding likely from the rectal ulcer. -For now continue PPI BID and carafate, follow-up GI recommendations -Monitor hemoglobin, improved after PRBC transfusion given 4 days ago #Encephalopathy and Polyneuropathy- Despite extubation on 08/24, he remains lethargic and weak.- Head CT 08/20 negative- Repeat CT on 08/31 shows some edema of the basal ganglia, confirmed on MRI, this likely represents residual toxic me tabolic effect - TSH, ammonia, AM cortisol are normal. CK has normalized-also there is associated with proximal muscle weakness but intact sensation-MRI C spine was most notable for signal changes within the paraspinal musculature of C3-C4 through C5-C6... which is likely a sequelae of rhabdomyolysis. -Monitor, follow-up recommendations from neurology - following. -Reorient as needed -Will consider neurosurgery consult #Bacteremia- Had fever on 08/27 - Blood culture (x1 unfortunately) from that day is growing coag negative staph, a common contaminant. Repeat blood culture negative.- D/Matias right IJ. But his femoral dialysis catheter may also be a sour ce of infection -and now in fact his wound culture from the groin area where the dialysis catheter is, is growing positive Pseudomonas, Enterobacter, and VRE -Continue Levaquin and now Zyvox - Follow-up ID recommendations -again Saurabh line was removed earlier today follow-up culture results of the tip # acute respiratory failure- extubated 08/24, was likely secondary to polysubstance overdose resulting in multiorgan dysfunction; patient had subsequent severe metabolic acidosis with inadequate respiratory compensation- now oxygen levels stable - s/p antibiotic treatment for CAP earlier this admission -Monitor, continue oxygen supplementation as needed # Elevated troponin-now appears stable- CV consulted earlier this admission. Likely demand ischemia from drug use. - Will not treat per NSTEMI protocol, monitor, follow-up cardiology recommendations # transaminitis: - May be from shock liver or drug use.- Hep B, Hep C negative. LFTs have trended down. # Rhabdomyolysis - resolved # Coagulopathy- May be due to liver and renal injury as well as drug use- No DIC. Resolved. # polysubstance abuse - Again patient was found to be positive for opioids, methamphetamine, marijuana and an elevated blood alcohol level. -Earlier this admission ordered for thiamine 300 mg IM daily times 3 days, further treatment as per the clinical course # DVT and GI prophylaxis: Protonix twice daily Result Diagram: 09/09/18 0652 09/09/18 0652 Results 24hrs Laboratory Tests Test 09/08/18 12:37 09/08/18 17:24 09/08/18 21:20 09/09/18 06:52 Bedside Glucose 144 99 110 White Blood Count 14.2 H Red Blood Count 3.26 L Hemoglobin 10.2 L Hematocrit 30.7 L Mean Corpuscular Volume 94.2 Mean Corpuscular 31.3 Hemoglobin Mean Corpuscular 33.2 Hemoglobin Concent Red Cell Distribution 14.3 Width Platelet Count 432 H Mean Platelet Volume 9.9 Immature Granulocytes % 2.600 H Neutrophils % 66.1 Lymphocytes % 13.1 L Monocytes % 8.7 Eosinophils % 8.4 H Basophils % 1.1 Nucleated Red Blood 0.1 H Cells % Immature Granulocytes # 0.370 H Neutrophils # 9.4 H Lymphocytes # 1.9 Monocytes # 1.2 H Eosinophils # 1.2 H Basophils # 0.2 H Nucleated Red Blood 0.0 Cells # Sodium Level 138 Potassium Level 4.3 Chloride Level 96 L Carbon Dioxide Level 30 Anion Gap 12 Blood Urea Nitrogen 42 #H Creatinine 3.43 #H Est Glomerular Filtrat 21 L Rate mL/min Glucose Level 107 Calcium Level 9.6 Phosphorus Level 4.8 Magnesium Level 2.0 Test 09/09/18 08:25 Bedside Glucose 103 Exam/Review of Systems Vital Signs Vitals Vital Signs Date Temp Pulse Resp B/P (MAP) Pulse Ox O2 O2 Flow FiO2 Time Delivery Rate 09/09/18 98.1 73 16 117/70 97 07:41 (86) 09/08/18 Room Air 19:11 09/05/18 2.0 20:00 Intake and Output 09/08/18 09/08/18 09/09/18 1515:00 23:00 07:00 IntakeIntake Total 1040 ml 120 ml OutputOutput Total 4700 ml BalanceBalance 1040 ml -4580 ml Medications Medications Current Medications Albuterol (Ventolin Hfa) 4 puff Q2H RESP THERAPY PRN INH SHORTNESS OF BREATH; Start 08/20/18 at 22:00 Ipratropium [place] (Atrovent Hfa) 4 puff Q2H RESP THERAPY PRN INH SHORTNESS OF BREATH; Start 08/20/18 at 22:00 Acetaminophen (Tylenol Liquid) 650 mg Q6H PRN PO PAIN LEVEL 1-3 OR FEVER Last administered on 09/06/18at 20:11; Admin Dose 650 MG; Start 08/20/18 at 22:00 Miscellaneous Information 1 ea NOTE XX ; Start 08/21/18 at 16:30 Glucose (Glutose) 15 gm Q15M PRN PO DECREASED GLUCOSE; Start 08/21/18 at 16:30 Glucose (Glutose) 22.5 gm Q15M PRN PO DECREASED GLUCOSE; Start 08/21/18 at 16:30 Dextrose (D50w Syringe) 25 ml Q15M PRN IV DECREASED GLUCOSE; Start 08/21/18 at 16:30 Dextrose (D50w Syringe) 50 ml Q15M PRN IV DECREASED GLUCOSE; Start 08/21/18 at 16:30 Glucagon (Glucagen) 1 mg Q15M PRN IM DECREASED GLUCOSE; Start 08/21/18 at 16:3 0 Glucose (Glutose) 15 gm Q15M PRN BUCCAL DECREASED GLUCOSE; Start 08/21/18 at 16:30 Metoprolol Tartrate (Lopressor) 25 mg BID PO Last administered on 09/09/18at 09:22; Admin Dose 25 MG; Start 08/23/18 at 21:00 Epinephrine (Racepinephrine 2.25% (Neb)) 0.25 ml Q3H RESP THERAPY PRN HHN STRIDOR; Start 08/23/18 at 17:00 Ondansetron HCl (Zofran Inj) 4 mg Q6H PRN IV NAUSEA AND/OR VOMITING Last admi nistered on 08/25/18at 21:47; Admin Dose 4 MG; Start 08/25/18 at 21:30 Diagnostic Test (Pha) (Accu-Chek) 1 ea 02 XX ; Start 08/27/18 at 02:00 Heparin Sodium (Porcine) (Heparin (5000 Units/1ml)) 5,000 unit Q8 SC Last administered on 09/01/18at 14:27; Admin Dose 5,000 UNIT; Start 08/29/18 at 14:0 0; Status Hold Epoetin Isacc (Epogen (Non Esrd/Non Oncology)) 10,000 units MoWeFr@17 SC Last administered on 09/07/18 18:06; Admin Dose 10,000 UNITS; Start 08/29/18 at 17:00 Albumin Human 50 ml @ 100 mls/hr DURING DIALYSIS PRN IV During HD. Last administered on 08/29/18at 13:55; Admin Dose 100 MLS/HR; Start 08/29/18 at 12:30 Aspirin (Aspirin) 81 mg DAILY PO Last administered on 09/03/18at 08:37; Admin Dose 81 MG; Start 08/30/18 at 09:00; Status Hold Calcium Acetate (Phoslo) 1,334 mg WITH MEALS GTB Last administered on 09/09/18 09:20; Admin Dose 1,334 MG; Start 08/31/18 at 12:00 Heparin Sodium (Porcine) (Heparin (1000 Units/ml)) 3,000 unit AFTER DIALYSIS CATHETER Last administered on 09/05/18at 10:12; Admin Dose 3,000 UNIT; Start 09/01/18 at 12:30 Sucralfate (Carafate Susp) 1 gm QID PO Last administered on 09/09/18 09:20; Admin Dose 1 GM; Start 09/01/18 at 16:00 Pantoprazole (Protonix Iv) 40 mg BID@18 IV Last administered on 09/09/18 09:20; Admin Dose 40 MG; Start 09/01/18 at 18:00 Insulin Aspart (Novolog Insulin Pen) (Adult SC Insulin - Mild Algorithm)... AC MEALS AND BEDTIME SC ; Start 09/03/18 at 07:00 Linezolid (Zyvox) 600 mg BID PO Last administered on 09/09/18 09:20; Admin Dose 600 MG; Start 09/08/18 at 12:30 Levofloxacin (Levaquin) 250 mg Q2D@0600 PO Last administered on 09/08/18 15:20; Admin Dose 250 MG; Start 09/08/18 at 15:00 CINTIA ESPINOSA Sep 09, 2018 09:25
--- NOTE | 2018-09-09 11:18 | CONS ---
Date/Time of Note Date/Time of Note DATE: 09/09/18 TIME: 11:15 Assessment/Plan Assessment/Plan Hospital Course No acute changes, patient is alert, looks comfortable, no fevers overnight Culture of right femoral Saurabh catheter site growing Pseudomonas, VRE and Enterobacter Antimicrobials: Zyvox, Levaquin Indwelling: Right femoral Saurabh, Suh Physical examination: Well-nourished well-developed middle-aged man who is in no distress. Head atraumatic normocephalic sclera nonicteric. Neck is supple chest rise symmetrical breath sounds diminished bases. Heart: S1-S2, tachycardic. Abdomen soft bowel sounds present. Extremities with bilateral edema Assessment: 1. Systemic inflammatory response syndrome with leukocytosis and ongoing fevers, likely line sepsis 2. Status post Gram-positive cocci bacteremia, possibly line sepsis, s/p TLC dc'd 3. Status post acute encephalopathy 4. Status post acute hypoxemic respiratory failure 5. Pulmonary edema 6. Acute renal failure, on hemodialysis 7. Severe anasarca 8. History of polysubstance abuse 9. Muscle weakness Plan: Clinically stable, continue abx, await for saurabh cath removal, no need for HD per dw nephrology, neuro rec-s ==>MRI C spine was most notable for signal changes within the paraspinal musculature of C3-C4 through C5-C6... which is likely a sequelae of rhabdomyolysis. DW Dr Monson Result Diagram: 09/09/18 0652 09/09/18 0652 Results 24hrs Laboratory Tests Test 09/08/18 12:37 09/08/18 17:24 09/08/18 21:20 09/09/18 06:52 Bedside Glucose 144 99 110 White Blood Count 14.2 H Red Blood Count 3.26 L Hemoglobin 10.2 L Hematocrit 30.7 L Mean Corpuscular Volume 94.2 Mean Corpuscular 31.3 Hemoglobin Mean Corpuscular 33.2 Hemoglobin Concent Red Cell Distribution 14.3 Width Platelet Count 432 H Mean Platelet Volume 9.9 Immature Granulocytes % 2.600 H Neutrophils % 66.1 Lymphocytes % 13.1 L Monocytes % 8.7 Eosinophils % 8.4 H Basophils % 1.1 Nucleated Red Blood 0.1 H Cells % Immature Granulocytes # 0.370 H Neutrophils # 9.4 H Lymphocytes # 1.9 Monocytes # 1.2 H Eosinophils # 1.2 H Basophils # 0.2 H Nucleated Red Blood 0.0 Cells # Sodium Level 138 Potassium Level 4.3 Chloride Level 96 L Carbon Dioxide Level 30 Anion Gap 12 Blood Urea Nitrogen 42 #H Creatinine 3.43 #H Est Glomerular Filtrat 21 L Rate mL/min Glucose Level 107 Calcium Level 9.6 Phosphorus Level 4.8 Magnesium Level 2.0 Test 09/09/18 08:25 Bedside Glucose 103 Consultation Date/Type/Reason Admit Date/Time Aug 20, 2018 at 21:39 Initial Consult Date 08/21/18 Type of Consult id Requesting Provider: YUMIKO JC MD Exam/Review of Systems Vital Signs Vitals Vital Signs Date Temp Pulse Resp B/P (MAP) Pulse Ox O2 O2 Flow FiO2 Time Delivery Rate 09/09/18 98.1 73 16 117/70 97 07:41 (86) 09/08/18 Room Air 19:11 09/05/18 2.0 20:00 Intake and Output 09/08/18 09/08/18 09/09/18 1515:00 23:00 07:00 IntakeIntake Total 1040 ml 120 ml OutputOutput Total 4700 ml BalanceBalance 1040 ml -4580 ml Medications Medications Current Medications Albuterol (Ventolin Hfa) 4 puff Q2H RESP THERAPY PRN INH SHORTNESS OF BREATH; Start 08/20/18 at 22:00 Ipratropium [place] (Atrovent Hfa) 4 puff Q2H RESP THERAPY PRN INH SHORTNESS OF BREATH; Start 08/20/18 at 22:00 Acetaminophen (Tylenol Liquid) 650 mg Q6H PRN PO PAIN LEVEL 1-3 OR FEVER Last administered on 09/06/18at 20:11; Admin Dose 650 MG; Start 08/20/18 at 22:00 Miscellaneous Information 1 ea NOTE XX ; Start 08/21/18 at 16:30 Glucose (Glutose) 15 gm Q15M PRN PO DECREASED GLUCOSE; Start 08/21/18 at 16:30 Glucose (Glutose) 22.5 gm Q15M PRN PO DECREASED GLUCOSE; Start 08/21/18 at 16:30 Dextrose (D50w Syringe) 25 ml Q15M PRN IV DECREASED GLUCOSE; Start 08/21/18 at 16:30 Dextrose (D50w Syringe) 50 ml Q15M PRN IV DECREASED GLUCOSE; Start 08/21/18 at 16:30 Glucagon (Glucagen) 1 mg Q15M PRN IM DECREASED GLUCOSE; Start 08/21/18 at 16:30 Glucose (Glutose) 15 gm Q15M PRN BUCCAL DECREASED GLUCOSE; Start 08/21/18 at 16:30 Metoprolol Tartrate (Lopressor) 25 mg BID PO Last administered on 09/09/18 09:22; Admin Dose 25 MG; Start 08/23/18 at 21:00 Epinephrine (Racepinephrine 2.25% (Neb)) 0.25 ml Q3H RESP THERAPY PRN HHN STRIDOR; Start 08/23/18 at 17:00 Ondansetron HCl (Zofran Inj) 4 mg Q6H PRN IV NAUSEA AND/OR VOMITING Last administered on 08/25/18at 21:47; Admin Dose 4 MG; Start 08/25/18 at 21:30 Diagnostic Test (Pha) (Accu-Chek) 1 ea 02 XX ; Start 08/27/18 at 02:00 Heparin Sodium (Porcine) (Heparin (5000 Units/1ml)) 5,000 unit Q8 SC Last administered on 09/01/18at 14:27; Admin Dose 5,000 UNIT; Start 08/29/18 at 14:00; Status Hold Epoetin Isacc (Epogen (Non Esrd/Non Oncology)) 10,000 units MoWeFr@17 SC Last administered on 09/07/18 18:06; Admin Dose 10,000 UNITS; Start 08/29/18 at 17:00 Albumin Human 50 ml @ 100 mls/hr DURING DIALYSIS PRN IV During HD. Last administered on 08/29/18at 13:55; Admin Dose 100 MLS/HR; Start 08/29/18 at 12:30 Aspirin (Aspirin) 81 mg DAILY PO Last administered on 09/03/18at 08:37; Admin Dose 81 MG; Start 08/30/18 at 09:00; Status Hold Calcium Acetate (Phoslo) 1,334 mg WITH MEALS GTB Last administered on 09/09/18 09:20; Admin Dose 1,334 MG; Start 08/31/18 at 12:00 Heparin Sodium (Porcine) (Heparin (1000 Units/ml)) 3,000 unit AFTER DIALYSIS CATHETER Last administered on 09/05/18at 10:12; Admin Dose 3,000 UNIT; Start 09/01/18 at 12:30 Sucralfate (Carafate Susp) 1 gm QID PO Last administered on 09/09/18 09:20; Admin Dose 1 GM; Start 09/01/18 at 16:00 Pantoprazole (Protonix Iv) 40 mg BID@06,18 IV Last administered on 09/09/18 09:20; Admin Dose 40 MG; Start 09/01/18 at 18:00 Insulin Aspart (Novolog Insulin Pen) (Adult SC Insulin - Mild Algorithm)... AC MEALS AND BEDTIME SC ; Start 09/03/18 at 07:00 Linezolid (Zyvox) 600 mg BID PO Last administered on 09/09/18 09:20; Admin Dose 600 MG; Start 09/08/18 at 12:30 Levofloxacin (Levaquin) 250 mg Q2D@0600 PO Last administered on 09/08/18 15:20; Admin Dose 250 MG; Start 09/08/18 at 15:00 BRIANNE COYLE NP Sep 09, 2018 11:18
--- NOTE | 2018-09-09 12:36 | CONS ---
Assessment/Plan Assessment/Plan Hospital Course A: 33 yo M with uncertain PMH who presents for evaluation of altered mental status..for which neurology is consulted.. UDS + for amphetamines, opioids, EtOH, cannabis He was reported to be severely hypoglycemic in the field. JULIAN+ CK++++ Clinically consistent with an acute and multifactorial toxic-metabolic encephalopathy. Stroke is unlikely. Seizure is unlikely. CTH (08/20) was unrevealing. Repeat CTH was most notable for bilateral globus pallidus edema MRI is notable for sequelae of a toxic-metabolic insult.. As an aside, he has profound 4-limb weakness on exam, which does not appear to be improving w/ his mental status.. MRI C spine was most notable for signal changes within the paraspinal m usculature of C3-C4 through C5-C6... which is likely a sequelae of rhabdomyolysis. P: Ok to defer additional neuroimaging for now. Cont medical management per primary Reorient as necessary Limit sedating medications where possible PT/OT as tolerated Will follow clinically, to make further neurologic recommendations as necessary Result Diagram: 09/09/18 0652 09/09/18 0652 Results 24hrs Laboratory Tests Test 09/08/18 12:37 09/08/18 17:24 09/08/18 21:20 09/09/18 06:52 Bedside Glucose 144 99 110 White Blood Count 14.2 H Red Blood Count 3.26 L Hemoglobin 10.2 L Hematocrit 30.7 L Mean Corpuscular Volume 94.2 Mean Corpuscular 31.3 Hemoglobin Mean Corpuscular 33.2 Hemoglobin Concent Red Cell Distribution 14.3 Width Platelet Count 432 H Mean Platelet Volume 9.9 Immature Granulocytes % 2.600 H Neutrophils % 66.1 Lymphocytes % 13.1 L Monocytes % 8.7 Eosinophils % 8.4 H Basophils % 1.1 Nucleated Red Blood 0.1 H Cells % Immature Granulocytes # 0.370 H Neutrophils # 9.4 H Lymphocytes # 1.9 Monocytes # 1.2 H Eosinophils # 1.2 H Basophils # 0.2 H Nucleated Red Blood 0.0 Cells # Sodium Level 138 Potassium Level 4.3 Chloride Level 96 L Carbon Dioxide Level 30 Anion Gap 12 Blood Urea Nitrogen 42 #H Creatinine 3.43 #H Est Glomerular Filtrat 21 L Rate mL/min Glucose Level 107 Calcium Level 9.6 Phosphorus Level 4.8 Magnesium Level 2.0 Test 09/09/18 08:25 Bedside Glucose 103 Consultation Date/Type/Reason Admit Date/Time Aug 20, 2018 at 21:39 Type of Consult Neurology Reason for Consultation lethargy/weakness Requesting Provider: YUMIKO JC MD Date/Time of Note DATE: 09/09/18 TIME: 12:36 24 HR Interval Summary Free Text/Dictation Continues medsurg monitoring. No acute events or changes in pt condition today. Pt states he is doing okay. Exam Vital Signs Vitals Vital Signs Date Temp Pulse Resp B/P (MAP) Pulse Ox O2 O2 Flow FiO2 Time Delivery Rate 09/09/18 98.1 73 16 117/70 97 07:41 (86) 09/08/18 Room Air 19:11 09/05/18 2.0 20:00 Intake and Output 09/08/18 09/08/18 09/09/18 1515:00 23:00 07:00 IntakeIntake Total 1040 ml 120 ml OutputOutput Total 4700 ml BalanceBalance 1040 ml -4580 ml Exam PE: Gen Appearance: No Apparent Distress HEENT: Normocephalic Cardiovascular: Regular rate Abdomen: Soft Extremities: Dry NE: The patient was lethargic, though arousable to voice. Oriented to self, hospital, year; unable to fully recall situation...able to follow simple axial and appendicular commands.. Cranial nerve examination was limited by mental status. Pupils were equal and reactive to light. There was no afferent pupillary defect. Funduscopic examination was limited. Face was grossly symmetric, w/ present corneal and cough reflexes. Tone was normal. Muscle bulk was normal. I did not see fasciculations. The patient wiggled his fingers b/l and his toes on the left; he was otherwise severely weak. Coordination and gait testing was limited by weakness.. Arm and leg reflexes were brisk in the right arm and left leg. Phillips's sign was absent. Plantar responses were mute.. TIN GUIDO NP Sep 09, 2018 12:36
--- NOTE | 2018-09-09 12:49 | CONS ---
Date/Time of Note Date/Time of Note DATE: 09/09/18 TIME: 12:48 Assessment/Plan Assessment/Plan Assessment/Plan Acute respiratory failure status post extubation Low normal left ventricular ejection fraction 50% Sepsis Acute kidney injury on hemodialysis Myocardial infarction, likely type II Encephalopathy GI bleed Liver dysfunction Illicit drug use -Off aspirin secondary to GI bleed. No statin given abnormal LFTs. Continue beta-kishan as tolerated. Fluid management via hemodialysis as per nephrology Result Diagram: 09/09/18 0652 09/09/18 0652 Results 24hrs Laboratory Tests Test 09/08/18 17:24 09/08/18 21:20 09/09/18 06:52 09/09/18 08:25 Bedside Glucose 99 110 103 White Blood Count 14.2 H Red Blood Count 3.26 L Hemoglobin 10.2 L Hematocrit 30.7 L Mean Corpuscular Volume 94.2 Mean Corpuscular 31.3 Hemoglobin Mean Corpuscular 33.2 Hemoglobin Concent Red Cell Distribution 14.3 Width Platelet Count 432 H Mean Platelet Volume 9.9 Immature Granulocytes % 2.600 H Neutrophils % 66.1 Lymphocytes % 13.1 L Monocytes % 8.7 Eosinophils % 8.4 H Basophils % 1.1 Nucleated Red Blood 0.1 H Cells % Immature Granulocytes # 0.370 H Neutrophils # 9.4 H Lymphocytes # 1.9 Monocytes # 1.2 H Eosinophils # 1.2 H Basophils # 0.2 H Nucleated Red Blood 0.0 Cells # Sodium Level 138 Potassium Level 4.3 Chloride Level 96 L Carbon Dioxide Level 30 Anion Gap 12 Blood Urea Nitrogen 42 #H Creatinine 3.43 #H Est Glomerular Filtrat 21 L Rate mL/min Glucose Level 107 Calcium Level 9.6 Phosphorus Level 4.8 Magnesium Level 2.0 Consultation Date/Type/Reason Admit Date/Time Aug 20, 2018 at 21:39 Initial Consult Date 08/21/18 Type of Consult cv Requesting Provider: YUMIKO JC MD 24 HR Interval Summary Free Text/Dictation Patient seen and examined, no shortness of breath Exam/Review of Systems Vital Signs Vitals Vital Signs Date Temp Pulse Resp B/P (MAP) Pulse Ox O2 O2 Flow FiO2 Time Delivery Rate 09/09/18 98.1 73 16 117/70 97 07:41 (86) 09/08/18 Room Air 19:11 09/05/18 2.0 20:00 Intake and Output 1/3/19 1/3/19 1/4/19 1515:00 23:00 07:00 IntakeIntake Total 1040 ml 120 ml OutputOutput Total 4700 ml BalanceBalance 1040 ml -4580 ml Exam Awake, no apparent distress Head: normocephalic Respiratory: other (Coarse breath sounds bilaterally, no wheezing) Cardiovascular: regular rate and rhythm, other (S1-S2 heard) Gastrointestinal: soft, non-tender, bowel sounds Extremities: edema Medications Medications Current Medications Albuterol (Ventolin Hfa) 4 puff Q2H RESP THERAPY PRN INH SHORTNESS OF BREATH; Start 08/20/18 at 22:00 Ipratropium [place] (Atrovent Hfa) 4 puff Q2H RESP THERAPY PRN INH SHORTNESS OF BREATH; Start 08/20/18 at 22:00 Acetaminophen (Tylenol Liquid) 650 mg Q6H PRN PO PAIN LEVEL 1-3 OR FEVER Last administered on 09/06/18at 20:11; Admin Dose 650 MG; Start 08/20/18 at 22:00 Miscellaneous Information 1 ea NOTE XX ; Start 08/21/18 at 16:30 Glucose (Glutose) 15 gm Q15M PRN PO DECREASED GLUCOSE; Start 08/21/18 at 16:30 Glucose (Glutose) 22.5 gm Q15M PRN PO DECREASED GLUCOSE; Start 08/21/18 at 16:30 Dextrose (D50w Syringe) 25 ml Q15M PRN IV DECREASED GLUCOSE; Start 08/21/18 at 16:30 Dextrose (D50w Syringe) 50 ml Q15M PRN IV DECREASED GLUCOSE; Start 08/21/18 at 16:30 Glucagon (Glucagen) 1 mg Q15M PRN IM DECREASED GLUCOSE; Start 08/21/18 at 16:30 Glucose (Glutose) 15 gm Q15M PRN BUCCAL DECREASED GLUCOSE; Start 08/21/18 at 16:30 Metoprolol Tartrate (Lopressor) 25 mg BID PO Last administered on 09/09/18at 09:22; Admin Dose 25 MG; Start 08/23/18 at 21:00 Epinephrine (Racepinephrine 2.25% (Neb)) 0.25 ml Q3H RESP THERAPY PRN HHN STRIDOR; Start 08/23/18 at 17:00 Ondansetron HCl (Zofran Inj) 4 mg Q6H PRN IV NAUSEA AND/OR VOMITING Last administered on 08/25/18at 21:47; Admin Dose 4 MG; Start 08/25/18 at 21:30 Diagnostic Test (Pha) (Accu-Chek) 1 ea 02 XX ; Start 08/27/18 at 02:00 Heparin Sodium (Porcine) (Heparin (5000 Units/1ml)) 5,000 unit Q8 SC Last administered on 09/01/18at 14:27; Admin Dose 5,000 UNIT; Start 08/29/18 at 14:00; Status Hold Epoetin Isacc (Epogen (Non Esrd/Non Oncology)) 10,000 units MoWeFr@17 SC Last administered on 09/07/18 18:06; Admin Dose 10,000 UNITS; Start 08/29/18 at 17:00 Albumin Human 50 ml @ 100 mls/hr DURING DIALYSIS PRN IV During HD. Last administered on 08/29/18at 13:55; Admin Dose 100 MLS/HR; Start 08/29/18 at 12:30 Aspirin (Aspirin) 81 mg DAILY PO Last administered on 09/03/18at 08:37; Admin Dose 81 MG; Start 08/30/18 at 09:00; Status Hold Calcium Acetate (Phoslo) 1,334 mg WITH MEALS GTB Last administered on 09/09/18 09:20; Admin Dose 1,334 MG; Start 08/31/18 at 12:00 Heparin Sodium (Porcine) (Heparin (1000 Units/ml)) 3,000 unit AFTER DIALYSIS CATHETER Last administered on 09/05/18at 10:12; Admin Dose 3,000 UNIT; Start 09/01/18 at 12:30 Sucralfate (Carafate Susp) 1 gm QID PO Last administered on 09/09/18 09:20; Admin Dose 1 GM; Start 09/01/18 at 16:00 Pantoprazole (Protonix Iv) 40 mg BID@,18 IV Last administered on 09/09/18 09:20; Admin Dose 40 MG; Start 09/01/18 at 18:00 Insulin Aspart (Novolog Insulin Pen) (Adult SC Insulin - Mild Algorithm)... AC MEALS AND BEDTIME SC ; Start 09/03/18 at 07:00 Linezolid (Zyvox) 600 mg BID PO Last administered on 09/09/18at 09:20; Admin Dose 600 MG; Start 09/08/18 at 12:30 Levofloxacin (Levaquin) 250 mg Q2D@0600 PO Last administered on 09/08/18at 15:20; Admin Dose 250 MG; Start 09/08/18 at 15:00 Kana Phoenix DO Sep 09, 2018 12:49
[2018-09-09 14:20] VITALS: BP 116/69; PULSE 77; RESP 17
[2018-09-09] MEDS: EPOETIN 10000 UNITS/ML (NON ESRD/NON ONCOLOGY) SC SCH (18:08)
[2018-09-09 20:02] VITALS: BP 127/70; PULSE 86; RESP 16
--- NOTE | 2018-09-09 20:45 | CONS ---
DATE OF ADMISSION: 08/20/2018 DATE OF CONSULTATION: 09/09/2018 REQUESTING PHYSICIAN: Cintia Espinosa MD INDICATION FOR CONSULTATION: Cervical paraspinal edema. HISTORY OF PRESENT ILLNESS: The patient is a 33-year-old male with a history of reported drug abuse, who was found down 3 weeks ago unresponsive. The patient was felt to have had a respiratory failure secondary to polysubstance abuse and was noted to have non-STEMI septic shock and multiorgan failure . The patient has been in the hospital since that time for 3 weeks. The patient apparently also had alteration of his mental status, which has gradually improved, and the patient is extubated. The kaia doherty has had some generalized weakness, which did not appear to have a clear cause and hence, CT sca n of the head and MRI of the brain and cervical spine were performed. The patient had an MRI on 08/07 which clearly showed abnormalities bilaterally in the basal ganglia with signal changes concer jose miguel for toxic or metabolic insult with other forms of encephalitis, not including the CSF. Analysis was recommended. There was no evidence of diffusion signal to suggest infarct or recent ischemia. There is no hydrocephalus or masses as well. The patient subsequently had an MRI of the cervical spi ne that was performed 2 days ago. This did not show any evidence of cord signal change, central denise l stenosis, or signal change in the bone or disk. There is no malalignment or subluxation. The only finding appeared to be some increased T2 and STIR signal change in the paraspinal muscles bilaterall y from C3 to C6 without evidence of a mass lesion. The radiologist interpreted this as being concern ing for a nonspecific paraspinal myositis. The patient is generally somewhat cognitively slow, thoug h he does speak and answer questions. He denies any headache or neck pain and denies any numbness or tingling. Again, he does have some cognitive slowing, so the patient is unable to answer detailed q uestions regarding his history. He appears to not really be able to recollect most of his hospital s roro. PAST MEDICAL HISTORY: Unknown. SOCIAL HISTORY: The patient would not report the type of drug he was using, always stating that he h ad been drinking beers. PAST SURGICAL HISTORY: The patient denies. ALLERGIES: NO KNOWN DRUG ALLERGIES. FAMILY HISTORY: The patient unable to provide. REVIEW OF SYSTEMS: A 12-point review of systems was performed. Pertinent positives and negatives li sted in history of present illness and below. CONSTITUTIONAL: The patient denies any fevers or chills. HEMATOLOGIC: No history of easy bruising. MUSCULOSKELETAL: Denies any back pain or neck pain. NEUROLOGIC: Denies headache. PHYSICAL EXAMINATION: VITAL SIGNS: The patient's temperature is 98.6, pulse 77, respirations 17, blood pressure 116/69, sa turating 98% on room air. GENERAL: The patient is a middle-aged male, lying in the hospital bed, in no acute distress. HEAD AND NECK: Normocephalic, atraumatic. His neck is supple and nontender with no paraspinal or mi dline tenderness. He does not have a Spurling or Lhermitte sign. CARDIAC: Regular rate and rhythm. LUNGS: Clear to auscultation. ABDOMEN: Nontender, nondistended, soft. EXTREMITIES: No clubbing, cyanosis, or edema. NEUROLOGICAL: The patient is awake, alert. He is oriented to the year but not the exact date. He k nows he is in the hospital, though not which hospital. He does follow commands, though somewhat slow ly. Cranial nerves II through XII are serially tested and are grossly intact. On his motor exam, he has diffuse weakness with some muscle atrophy at this point. 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 His deltoids are 3/5. He can start to lift his a jeffrey off the bed but cannot perform a full pronator drift. On his lower extremity, he will wiggle his toes and bend his ankles at 4-/5 and 3/5 in his iliopsoas and quadriceps. Deep tendon reflexes were absent diffusely with no clonus, Babinski, or Simone sign. He has grossly intact sensation to ligh t touch. He had no ataxia or dysmetria, though could not test the [id number] testing and finge r-to-nose testing as the patient was unable to lift his arms completely and performed moving his fing ers very slowly. REVIEW OF RADIOGRAPHIC RESULTS: I reviewed the patient's cervical MRI as well as radiologist's resul t. The radiologist reports the edema as reported in the specific history of present illness stating that there is edematous signal in the paraspinal musculature abutting the posterior elements extendin g from C3-C4 to C5-C6, raising concern for nonspecific paraspinal myositis without evidence of mass o r fluid collection. Ligamentous structures appear intact. Findings may reflect muscle strain. The patient's MRI of the brain again showed signal change in the bilateral basal ganglia, concerning for an encephalitis, toxic or metabolic insult. Multiple CT scans of the head were performed in the and , which did not appear to show any clear issue other than questionable bilateral globus pall idus edema. ASSESSMENT AND PLAN: A 33-year-old male with paraspinal muscle edema. This patient has paraspinal m uscular edema. There does not appear to be any ligamentous injury or instability of the cervical spi ne. There is no evidence of injury to the neurologic structures. I see no neurosurgical issue here. The patient may have a myositis of the paraspinal muscles, but this does not appear to be infectiou s or an abscess. Given the patient's history, this is likely secondary to rhabdomyolysis of the remedios ent's immobility. As this is beyond my field of expertise, I cannot state the duration of such muscu lar edema and why it would persist or if other processes may be present. This what appeared to be a medical issue. There may be other sources for myositis which could be investigated. If necessary, a percutaneous biopsy could be done of radiographic guidance, but overall, I did not see any significa nt surgical issue related to the presence of this edema at this time. It was seen that cause or concern for the patient's weakness would likely be explained by studies jeovany t had already been performed a week ago, namely with the bilateral basal ganglia lesions. It would a ppear this would be the most reasonable explanation for the patient's weakness in addition to possibl e disuse and rhabdomyolysis. I would recommend CSF analysis for the lesions but would defer to Neuro logy who have already been consulted and following this patient. At this time, I see no indication f or any type of neurosurgical intervention or treatment. Thank you for allowing me to participate in the care of this patient. Dictated By: ERNESTO SANDOVAL MD, LG/ZACK Conf#: [id number] DID#: [id number] CC: CINTIA ESPINOSA;*EndCC*
[2018-09-10] MEDS: ACCU-CHEK XX SCH (02:00)
[2018-09-10 02:02] VITALS: BP 114/66; PULSE 81; RESP 16
[2018-09-10] MEDS: PANTOPRAZOLE 40 MG INJ IV SCH ×2 (06:41→18:11)
[2018-09-10] MEDS: LEVOFLOXACIN 250 MG TAB PO SCH (06:41)
[2018-09-10 07:36] VITALS: BP 117/61; PULSE 76; RESP 18
--- NOTE | 2018-09-10 08:43 | CONS ---
Assessment/Plan Assessment/Plan Hospital Course A: 33 yo M with uncertain PMH who presents for evaluation of altered mental status..for which neurology is consulted.. UDS + for amphetamines, opioids, EtOH, cannabis He was reported to be severely hypoglycemic in the field. JULIAN+ CK++++ Clinically consistent with an acute and multifactorial toxic-metabolic encephalopathy. Stroke is unlikely. Seizure is unlikely. CTH (08/20) was unrevealing. Repeat CTH was most notable for bilateral globus pallidus edema MRI is notable for sequelae of a toxic-metabolic insult.. As an aside, he has profound 4-limb weakness on exam, which does not appear to be improving w/ his mental status.. MRI C spine was most notable for signal changes within the paraspinal m usculature of C3-C4 through C5-C6... which is a likely sequelae of rhabdomyolysis. P: Ok to defer additional neuroimaging for now. Cont medical management per primary Reorient as necessary Limit sedating medications where possible PT/OT as tolerated Will follow clinically, to make further neurologic recommendations as necessary Result Diagram: 09/09/18 0652 09/09/18 0652 Results 24hrs Laboratory Tests Test 09/09/18 13:02 09/09/18 18:06 09/09/18 21:31 Bedside Glucose 133 104 108 Consultation Date/Type/Reason Admit Date/Time Aug 20, 2018 at 21:39 Type of Consult Neurology Reason for Consultation lethargy/weakness Requesting Provider: YUMIKO JC MD Date/Time of Note DATE: 09/10/18 TIME: 08:41 24 HR Interval Summary Free Text/Dictation Continues medsurg monitoring. No acute events or changes in pt condition reported. Pt states he's okay today. Exam Vital Signs Vitals Vital Signs Date Temp Pulse Resp B/P (MAP) Pulse Ox O2 O2 Flow FiO2 Time Delivery Rate 09/10/18 98.3 76 18 117/61 97 Room Air 07:36 (79) Intake and Output 09/09/18 09/09/18 09/10/18 1515:00 23:00 07:00 IntakeIntake Total 480 ml 480 ml OutputOutput Total 750 ml 1200 ml BalanceBalance -270 ml -720 ml Exam PE: Gen Appearance: No Apparent Distress HEENT: Normocephalic Cardiovascular: Regular rate Abdomen: Soft Extremities: Dry NE: The patient was awake, alert, and somewhat conversant. Oriented to self, hospital, year; unable to fully recall situation...able to follow simple axial and appendicular commands.. Cranial nerve examination was limited by mental status. Pupils were equal and re active to light. There was no afferent pupillary defect. Funduscopic examination was limited. Face was grossly symmetric, w/ present corneal and cough reflexes. Tone was normal. Muscle bulk was normal. I did not see fasciculations. The patient wiggled his fingers b/l and his toes on the left; he was otherwise severely weak. Coordination and gait testing was limited by weakness.. Arm and leg reflexes were brisk in the right arm and left leg. Phillips's sign was absent. Plantar responses were mute.. TIN GUIDO NP Sep 10, 2018 08:43 GEOVANNI BANKS Sep 11, 2018 05:37
[2018-09-10] MEDS: INSULIN ASPART [NOVOLOG] 3 ML PEN SC SCH ×4 (09:38→21:00)
[2018-09-10] MEDS: CALCIUM ACETATE 667 MG CAP GTB SCH ×3 (09:49→18:11)
[2018-09-10] MEDS: SUCRALFATE (100 MG/ML) 10ML CUP PO SCH ×4 (09:49→21:13)
[2018-09-10] MEDS: METOPROLOL 25 MG TAB PO SCH ×2 (09:50→21:13)
[2018-09-10] MEDS: ZYVOX 600 MG TAB PO SCH ×2 (09:50→21:13)
--- NOTE | 2018-09-10 11:11 | CONS ---
Date/Time of Note Date/Time of Note DATE: 09/10/18 TIME: 11:09 Assessment/Plan Assessment/Plan Assessment/Plan 1. Anticipate renal fx will cont to improve, I ordered labs today 2. Neuro status is slowly improving, NS note rev/ Result Diagram: 09/09/18 0652 09/09/18 0652 Results 24hrs Laboratory Tests Test 09/09/18 13:02 09/09/18 18:06 09/09/18 21:31 09/10/18 09:02 Bedside Glucose 133 104 108 149 Consultation Date/Type/Reason Admit Date/Time Aug 20, 2018 at 21:39 Initial Consult Date 08/21/18 Requesting Provider: YUMIKO JC MD 24 HR Interval Summary Constitutional: other (Family at bedside, he is comforrtable without tachypnea) Detailed Summary Respiratory: cough, shortness of breath Cardiovascular: No chest pain Gastrointestinal: No pain Genitourinary: other (schwartz is in place) Exam/Review of Systems Vital Signs Vitals Vital Signs Date Temp Pulse Resp B/P (MAP) Pulse Ox O2 O2 Flow FiO2 Time Delivery Rate 09/10/18 98.3 76 18 117/61 97 Room Air 07:36 (79) Intake and Output 09/09/18 09/09/18 09/10/18 1515:00 23:00 07:00 IntakeIntake Total 480 ml 480 ml OutputOutput Total 750 ml 1200 ml BalanceBalance -270 ml -720 ml Exam Neck: No jvd Respiratory: clear to auscultation Cardiovascular: regular rate and rhythm Gastrointestinal: soft Extremities: edema (is less in upper extrem) Neurological: other (can move upper extrem better, can move left ankle not right) Medications Medications Current Medications Albuterol (Ventolin Hfa) 4 puff Q2H RESP THERAPY PRN INH SHORTNESS OF BREATH; Start 08/20/18 at 22:00 Ipratropium [place] (Atrovent Hfa) 4 puff Q2H RESP THERAPY PRN INH SHORTNESS OF BREATH; Start 08/20/18 at 22:00 Acetaminophen (Tylenol Liquid) 650 mg Q6H PRN PO PAIN LEVEL 1-3 OR FEVER Last administered on 09/06/18at 20:11; Admin Dose 650 MG; Start 08/20/18 at 22:00 Miscellaneous Information 1 ea NOTE XX ; Start 08/21/18 at 16:30 Glucose (Glutose) 15 gm Q15M PRN PO DECREASED GLUCOSE; Start 08/21/18 at 16:30 Glucose (Glutose) 22.5 gm Q15M PRN PO DECREASED GLUCOSE; Start 08/21/18 at 16:30 Dextrose (D50w Syringe) 25 ml Q15M PRN IV DECREASED GLUCOSE; Start 08/21/18 at 16:30 Dextrose (D50w Syringe) 50 ml Q15M PRN IV DECREASED GLUCOSE; Start 08/21/18 at 16:30 Glucagon (Glucagen) 1 mg Q15M PRN IM DECREASED GLUCOSE; Start 08/21/18 at 16:30 Glucose (Glutose) 15 gm Q15M PRN BUCCAL DECREASED GLUCOSE; Start 08/21/18 at 16:30 Metoprolol Tartrate (Lopressor) 25 mg BID PO Last administered on 09/10/18at 09:50; Admin Dose 25 MG; Start 08/23/18 at 21:00 Epinephrine (Racepinephrine 2.25% (Neb)) 0.25 ml Q3H RESP THERAPY PRN HHN STRIDOR; Start 08/23/18 at 17:00 Ondansetron HCl (Zofran Inj) 4 mg Q6H PRN IV NAUSEA AND/OR VOMITING Last administered on 08/25/18at 21:47; Admin Dose 4 MG; Start 08/25/18 at 21:30 Diagnostic Test (Pha) (Accu-Chek) 1 ea 02 XX ; Start 08/27/18 at 02:00 Heparin Sodium (Porcine) (Heparin (5000 Units/1ml)) 5,000 unit Q8 SC Last administered on 09/01/18at 14:27; Admin Dose 5,000 UNIT; Start 08/29/18 at 14:00; Status Hold Epoetin Isacc (Epogen (Non Esrd/Non Oncology)) 10,000 units MoWeFr@17 SC Last administered on 09/09/18 18:08; Admin Dose 10,000 UNITS; Start 08/29/18 at 17:00 Albumin Human 50 ml @ 100 mls/hr DURING DIALYSIS PRN IV During HD. Last administered on 08/29/18at 13:55; Admin Dose 100 MLS/HR; Start 08/29/18 at 12:30 Aspirin (Aspirin) 81 mg DAILY PO Last administered on 09/03/18 08:37; Admin Dose 81 MG; Start 08/30/18 at 09:00; Status Hold Calcium Acetate (Phoslo) 1,334 mg WITH MEALS GTB Last administered on 09/10/18 09:49; Admin Dose 1,334 MG; Start 08/31/18 at 12:00 Heparin Sodium (Porcine) (Heparin (1000 Units/ml)) 3,000 unit AFTER DIALYSIS CATHETER Last administered on 09/05/18at 10:12; Admin Dose 3,000 UNIT; Start 09/01/18 at 12:30 Sucralfate (Carafate Susp) 1 gm QID PO Last administered on 09/10/18 09:49; Admin Dose 1 GM; Start 09/01/18 at 16:00 Pantoprazole (Protonix Iv) 40 mg BID@18 IV Last administered on 09/10/18 06:41; Admin Dose 40 MG; Start 09/01/18 at 18:00 Insulin Aspart (Novolog Insulin Pen) (Adult SC Insulin - Mild Algorithm)... AC MEALS AND BEDTIME SC Last administered on 09/10/18 09:38; Admin Dose 1 UNIT; Start 09/03/18 at 07:00 Linezolid (Zyvox) 600 mg BID PO Last administered on 09/10/18 09:50; Admin Dose 600 MG; Start 09/08/18 at 12:30 Levofloxacin (Levaquin) 250 mg Q2D@0600 PO Last administered on 09/10/18 06:41; Admin Dose 250 MG; Start 09/08/18 at 15:00 MAXIMO TAY MD Sep 10, 2018 11:11
[2018-09-10] MEDS: ACETAMINOPHEN 650MG/20.3ML CUP PO PRN (11:22)
--- NOTE | 2018-09-10 12:39 | PN ---
Date/Time of Note Date/Time of Note DATE: 09/10/18 TIME: 12:33 Assessment/Plan VTE Prophylaxis Risk score (from Ns)>0 risk: 5 SCD applied (from Ns): No SCD contraindicated: other Pharmacological prophylaxis: heparin Lines/Catheters IV [facility]from [facility] Urinary Cath still in place: Yes Reason Cath still needed: urinary retention Assessment/Plan Hospital Course S: Saurabh catheter removed yesterday. No fevers. Patient having improving urine output the last 1-2 days, although BMP results are pending from this morning. Seen by renal team this morning. Seen by neurosurgery and neurology team yesterday. O: VS - see below PE: Gen: Lying in bed, a bit more alert, but still overall lethargic Eyes: Pupils equal round reactive to light, extraocular muscles intact HEENT: PERRL, moist mucous membranes, Card: Regular rate and rhythm no murmurs Pulm: CTA bilaterally, no crackles. Abd: Soft, nondistended. Ext: No cyanosis/clubbing/edema Neuro: Still weak overall Assessment/Plan: 33 yo man brought in found down with subsequent JULIAN secondary to rhabdomyolysis; positive for alcohol, methamphetamine, cannabis, opioids as well. # Renal failure- Oliguric renal failure with hyperkalemia (after potassium replacement), also presented with severe metabolic acidosis- Likely due to a combination of rhabdo and drug use. CK levels normal now, but patient has been dialysis dependent. - Continue to follow renal recommendations, again Saurabh catheter out and patient appears to be urinating adequately now, follow BMP results to monitor BUN/creatinine levels - Patient may be having adequate renal recovery at this point, per renal documentation, and may not need another catheter insertion, will monitor #Hematochezia- Nurse reported maroon colored stool on 09/01- EGD 09/02 only with mild gastritis and distal esophagitis- MD witnessed maroon colored, grainy stool on 09/03. Rectal exam negative for external hemorrhoids or palpable internal hemorrhoids. Colonoscopy showed solitary rectal ulcer syndrome, bleeding likely from the rectal ulcer. -For now continue PPI BID and carafate, follow-up GI recommendations -Monitor hemoglobin, appears improved after PRBC transfusion given 5 days ago #Encephalopathy and Polyneuropathy- Despite extubation on 08/24, he remains le thargic and weak.- Head CT 08/20 negative- Repeat CT on 08/31 shows some edema of the basal ganglia, confirmed on MRI, this likely represents residual toxic metabolic effect - TSH, ammonia, AM cortisol are normal. CK has normalized-also there is associated with proximal muscle weakness but intact sensation-MRI C spine was most notable for signal changes within the paraspinal musculature of C3-C4 through C5-C6... which is likely a sequelae of rhabdomyolysis. Appreciate neurosurgery evaluation and comments. -Monitor, follow-up recommendations from neurology/neurosurgery -Reorient as needed -Continue physical therapy and occupational therapy, and case management is looking for placement options for patient so that he can get continued extensive therapy to help in strength recovery #Bacteremia- Had fever on 08/27 - Blood culture (x1 unfortunately) from that day is growing coag negative staph, a common contaminant. Repeat blood culture negative.- D/Matias right IJ. But his femoral dialysis catheter may also be a source of infection -and now in fact his wound culture from the groin area where the dialysis catheter is, is growing positive Pseudomonas, Enterobacter, and VRE -Continue Levaquin and Zyvox - Follow-up ID recommendations -again Saurabh line was removed yesterday, follow-up culture results of the tip # acute respiratory failure- extubated 08/24, was likely secondary to polysubstance overdose resulting in multiorgan dysfunction; patient had subsequent severe metabolic acidosis with inadequate respiratory compensation- now oxygen levels stable - s/p antibiotic treatment for CAP earlier this admission -Monitor, continue oxygen supplementation as needed # Elevated troponin-now appears stable- CV consulted earlier this admission. L ikely demand ischemia from drug use. - Will not treat per NSTEMI protocol, monitor, follow-up cardiology recommendations # transaminitis: - May be from shock liver or drug use.- Hep B, Hep C negative. LFTs have trended down. # Rhabdomyolysis - resolved # Coagulopathy- May be due to liver and renal injury as well as drug use- No DIC. Resolved. # polysubstance abuse - Again patient was found to be positive for opioids, methamphetamine, marijuana and an elevated blood alcohol level. -Earlier this admission ordered for thiamine 300 mg IM daily times 3 days, further treatment as per the clinical course # DVT and GI prophylaxis: Protonix twice daily Result Diagram: 09/10/18 1221 09/09/18 0652 Results 24hrs Laboratory Tests Test 09/09/18 13:02 09/09/18 18:06 09/09/18 21:31 09/10/18 09:02 Bedside Glucose 133 104 108 149 Test 09/10/18 12:21 09/10/18 12:21 White Blood Count 14.1 H Red Blood Count 3.37 L Hemoglobin 10.4 L Hematocrit 31.5 L Mean Corpuscular 93.5 Volume Mean Corpuscular 30.9 Hemoglobin Mean Corpuscular 33.0 Hemoglobin Concent Red Cell Distribution 13.6 Width Platelet Count 405 Mean Platelet Volume 9.2 Immature Granulocytes 1.800 H % Neutrophils % 70.6 Lymphocytes % 11.0 L Monocytes % 7.6 Eosinophils % 7.9 H Basophils % 1.1 Nucleated Red Blood 0.3 H Cells % Immature Granulocytes 0.250 H # Neutrophils # 9.9 H Lymphocytes # 1.6 Monocytes # 1.1 H Eosinophils # 1.1 H Basophils # 0.2 H Nucleated Red Blood 0.0 Cells # Lab Scanned Report REFERENCE LAB Exam/Review of Systems Vital Signs Vitals Vital Signs Date Temp Pulse Resp B/P (MAP) Pulse Ox O2 O2 Flow FiO2 Time Delivery Rate 09/10/18 98.3 76 18 117/61 97 Room Air 07:36 (79) Intake and Output 09/09/18 09/09/18 09/10/18 1515:00 23:00 07:00 IntakeIntake Total 480 ml 480 ml OutputOutput Total 750 ml 1200 ml BalanceBalance -270 ml -720 ml Medications Medications Current Medications Albuterol (Ventolin Hfa) 4 puff Q2H RESP THERAPY PRN INH SHORTNESS OF BREATH; Start 08/20/18 at 22:00 Ipratropium [place] (Atrovent Hfa) 4 puff Q2H RESP THERAPY PRN INH SHORTNESS OF BREATH; Start 08/20/18 at 22:00 Acetaminophen (Tylenol Liquid) 650 mg Q6H PRN PO PAIN LEVEL 1-3 OR FEVER Last administered on 09/10/18at 11:22; Admin Dose 650 MG; Start 08/20/18 at 22:00 Miscellaneous Information 1 ea NOTE XX ; Start 08/21/18 at 16:30 Glucose (Glutose) 15 gm Q15M PRN PO DECREASED GLUCOSE; Start 08/21/18 at 16:30 Glucose (Glutose) 22.5 gm Q15M PRN PO DECREASED GLUCOSE; Start 08/21/18 at 16:30 Dextrose (D50w Syringe) 25 ml Q15M PRN IV DECREASED GLUCOSE; Start 08/21/18 at 16:30 Dextrose (D50w Syringe) 50 ml Q15M PRN IV DECREASED GLUCOSE; Start 08/21/18 at 16:30 Glucagon (Glucagen) 1 mg Q15M PRN IM DECREASED GLUCOSE; Start 08/21/18 at 16:30 Glucose (Glutose) 15 gm Q15M PRN BUCCAL DECREASED GLUCOSE; Start 08/21/18 at 16:30 Metoprolol Tartrate (Lopressor) 25 mg BID PO Last administered on 09/10/18at 09:50; Admin Dose 25 MG; Start 08/23/18 at 21:00 Epinephrine (Racepinephrine 2.25% (Neb)) 0.25 ml Q3H RESP THERAPY PRN HHN STRIDOR; Start 08/23/18 at 17:00 Ondansetron HCl (Zofran Inj) 4 mg Q6H PRN IV NAUSEA AND/OR VOMITING Last admin istered on 08/25/18at 21:47; Admin Dose 4 MG; Start 08/25/18 at 21:30 Diagnostic Test (Pha) (Accu-Chek) 1 ea 02 XX ; Start 08/27/18 at 02:00 Heparin Sodium (Porcine) (Heparin (5000 Units/1ml)) 5,000 unit Q8 SC Last administered on 09/01/18at 14:27; Admin Dose 5,000 UNIT; Start 08/29/18 at 14:00; Status Hold Epoetin Isacc (Epogen (Non Esrd/Non Oncology)) 10,000 units MoWeFr@17 SC Last administered on 09/09/18at 18:08; Admin Dose 10,000 UNITS; Start 08/29/18 at 17:00 Albumin Human 50 ml @ 100 mls/hr DURING DIALYSIS PRN IV During HD. Last administered on 08/29/18at 13:55; Admin Dose 100 MLS/HR; Start 08/29/18 at 12:30 Aspirin (Aspirin) 81 mg DAILY PO Last administered on 09/03/18at 08:37; Admin Dose 81 MG; Start 08/30/18 at 09:00; Status Hold Calcium Acetate (Phoslo) 1,334 mg WITH MEALS GTB Last administered on 09/10/18 09:49; Admin Dose 1,334 MG; Start 08/31/18 at 12:00 Heparin Sodium (Porcine) (Heparin (1000 Units/ml)) 3,000 unit AFTER DIALYSIS CATHETER Last administered on 09/05/18at 10:12; Admin Dose 3,000 UNIT; Start 09/01/18 at 12:30 Sucralfate (Carafate Susp) 1 gm QID PO Last administered on 09/10/18 09:49; Admin Dose 1 GM; Start 09/01/18 at 16:00 Pantoprazole (Protonix Iv) 40 mg BID@,18 IV Last administered on 09/10/18 06:41; Admin Dose 40 MG; Start 09/01/18 at 18:00 Insulin Aspart (Novolog Insulin Pen) (Adult SC Insulin - Mild Algorithm)... AC MEALS AND BEDTIME SC Last administered on 09/10/18 09:38; Admin Dose 1 UNIT; Start 09/03/18 at 07:00 Linezolid (Zyvox) 600 mg BID PO Last administered on 09/10/18 09:50; Admin Dose 600 MG; Start 09/08/18 at 12:30 Levofloxacin (Levaquin) 250 mg Q2D@0600 PO Last administered on 09/10/18 06:41; Admin Dose 250 MG; Start 09/08/18 at 15:00 CINTIA ESPINOSA Sep 10, 2018 12:39
[2018-09-10 13:22] VITALS: BP 105/61; PULSE 81; RESP 18
--- NOTE | 2018-09-10 19:05 | CONS ---
Date/Time of Note Date/Time of Note DATE: 09/10/18 TIME: 19:03 Assessment/Plan Assessment/Plan Hospital Course 1335 No acute changes, patient is alert, looks comfortable, no fevers overnight Culture of right femoral Saurabh catheter site grew Pseudomonas, VRE and Enterobacter Antimicrobials: Zyvox, Levaquin Indwelling: Suh Physical examination: Well-nourished well-developed middle-aged man who is in no distress. Head atraumatic normocephalic sclera nonicteric. Neck is supple chest rise symmetrical breath sounds diminished bases. Heart: S1-S2, tachycardic. Abdomen soft bowel sounds present. Extremities with bilateral edema Assessment: 1. Systemic inflammatory response syndrome with leukocytosis and ongoing fevers, likely line sepsis 2. Status post Gram-positive cocci bacteremia, possibly line sepsis, s/p TLC dc'd 3. Status post acute encephalopathy 4. Status post acute hypoxemic respiratory failure 5. Pulmonary edema 6. Acute renal failure, on hemodialysis 7. Severe anasarca 8. History of polysubstance abuse 9. Muscle weakness Plan: Remains stable, line free, continue abx, neuro/renal rec-s Result Diagram: 09/10/18 1221 09/10/18 1221 Results 24hrs Laboratory Tests Test 09/09/18 21:31 09/10/18 09:02 09/10/18 12:21 09/10/18 12:21 Bedside Glucose 108 149 White Blood Count 14.1 H Red Blood Count 3.37 L Hemoglobin 10.4 L Hematocrit 31.5 L Mean Corpuscular 93.5 Volume Mean Corpuscular 30.9 Hemoglobin Mean Corpuscular 33.0 Hemoglobin Concent Red Cell Distribution 13.6 Width Platelet Count 405 Mean Platelet Volume 9.2 Immature Granulocytes 1.800 H % Neutrophils % 70.6 Lymphocytes % 11.0 L Monocytes % 7.6 Eosinophils % 7.9 H Basophils % 1.1 Nucleated Red Blood 0.3 H Cells % Immature Granulocytes 0.250 H # Neutrophils # 9.9 H Lymphocytes # 1.6 Monocytes # 1.1 H Eosinophils # 1.1 H Basophils # 0.2 H Nucleated Red Blood 0.0 Cells # Sodium Level 137 Potassium Level 3.7 Chloride Level 100 Carbon Dioxide Level 27 Anion Gap 10 Blood Urea Nitrogen 67 H Creatinine 3.32 H Est Glomerular 22 L Filtrat Rate mL/min Glucose Level 148 # Calcium Level 9.6 Phosphorus Level 5.2 H Magnesium Level 2.0 Lab Scanned Report REFERENCE LAB Test 09/10/18 13:51 09/10/18 17:40 Bedside Glucose 138 111 Consultation Date/Type/Reason Admit Date/Time Aug 20, 2018 at 21:39 Initial Consult Date 08/21/18 Type of Consult id Requesting Provider: YUMIKO JC MD Exam/Review of Systems Vital Signs Vitals Vital Signs Date Temp Pulse Resp B/P (MAP) Pulse Ox O2 O2 Flow FiO2 Time Delivery Rate 09/10/18 98.7 81 18 105/61 98 13:22 (76) 09/10/18 Room Air 07:36 Intake and Output 09/09/18 09/09/18 09/10/18 1515:00 23:00 07:00 IntakeIntake Total 480 ml 480 ml OutputOutput Total 750 ml 1200 ml BalanceBalance -270 ml -720 ml Medications Medications Current Medications Albuterol (Ventolin Hfa) 4 puff Q2H RESP THERAPY PRN INH SHORTNESS OF BREATH; Start 08/20/18 at 22:00 Ipratropium [place] (Atrovent Hfa) 4 puff Q2H RESP THERAPY PRN INH SHORTNESS OF BREATH; Start 08/20/18 at 22:00 Acetaminophen (Tylenol Liquid) 650 mg Q6H PRN PO PAIN LEVEL 1-3 OR FEVER Last administered on 09/10/18at 11:22; Admin Dose 650 MG; Start 08/20/18 at 22:00 Miscellaneous Information 1 ea NOTE XX ; Start 08/21/18 at 16:30 Glucose (Glutose) 15 gm Q15M PRN PO DECREASED GLUCOSE; Start 08/21/18 at 16:30 Glucose (Glutose) 22.5 gm Q15M PRN PO DECREASED GLUCOSE; Start 08/21/18 at 16:30 Dextrose (D50w Syringe) 25 ml Q15M PRN IV DECREASED GLUCOSE; Start 08/21/18 at 16:30 Dextrose (D50w Syringe) 50 ml Q15M PRN IV DECREASED GLUCOSE; Start 08/21/18 at 16:30 Glucagon (Glucagen) 1 mg Q15M PRN IM DECREASED GLUCOSE; Start 08/21/18 at 16:30 Glucose (Glutose) 15 gm Q15M PRN BUCCAL DECREASED GLUCOSE; Start 08/21/18 at 16:30 Metoprolol Tartrate (Lopressor) 25 mg BID PO Last administered on 09/10/18 09:50; Admin Dose 25 MG; Start 08/23/18 at 21:00 Epinephrine (Racepinephrine 2.25% (Neb)) 0.25 ml Q3H RESP THERAPY PRN HHN STRIDOR; Start 08/23/18 at 17:00 Ondansetron HCl (Zofran Inj) 4 mg Q6H PRN IV NAUSEA AND/OR VOMITING Last administered on 08/25/18at 21:47; Admin Dose 4 MG; Start 08/25/18 at 21:30 Diagnostic Test (Pha) (Accu-Chek) 1 ea 02 XX ; Start 08/27/18 at 02:00 Heparin Sodium (Porcine) (Heparin (5000 Units/1ml)) 5,000 unit Q8 SC Last administered on 09/01/18at 14:27; Admin Dose 5,000 UNIT; Start 08/29/18 at 14:00; Status Hold Epoetin Isacc (Epogen (Non Esrd/Non Oncology)) 10,000 units MoWeFr@17 SC Last administered on 09/09/18 18:08; Admin Dose 10,000 UNITS; Start 08/29/18 at 17:00 Albumin Human 50 ml @ 100 mls/hr DURING DIALYSIS PRN IV During HD. Last administered on 08/29/18at 13:55; Admin Dose 100 MLS/HR; Start 08/29/18 at 12:30 Aspirin (Aspirin) 81 mg DAILY PO Last administered on 09/03/18at 08:37; Admin Dose 81 MG; Start 08/30/18 at 09:00; Status Hold Calcium Acetate (Phoslo) 1,334 mg WITH MEALS GTB Last administered on 09/10/18 18:11; Admin Dose 1,334 MG; Start 08/31/18 at 12:00 Heparin Sodium (Porcine) (Heparin (1000 Units/ml)) 3,000 unit AFTER DIALYSIS CATHETER Last administered on 09/05/18at 10:12; Admin Dose 3,000 UNIT; Start 09/01/18 at 12:30 Sucralfate (Carafate Susp) 1 gm QID PO Last administered on 09/10/18 18:11; Admin Dose 1 GM; Start 09/01/18 at 16:00 Pantoprazole (Protonix Iv) 40 mg BID@,18 IV Last administered on 09/10/18 18:11; Admin Dose 40 MG; Start 09/01/18 at 18:00 Insulin Aspart (Novolog Insulin Pen) (Adult SC Insulin - Mild Algorithm)... AC MEALS AND BEDTIME SC Last administered on 09/10/18 09:38; Admin Dose 1 UNIT; Start 09/03/18 at 07:00 Linezolid (Zyvox) 600 mg BID PO Last administered on 09/10/18 09:50; Admin Dose 600 MG; Start 09/08/18 at 12:30 Levofloxacin (Levaquin) 250 mg Q2D@0600 PO Last administered on 09/10/18 06:41; Admin Dose 250 MG; Start 09/08/18 at 15:00 BRIANNE COYLE NP Sep 10, 2018 19:05
[2018-09-10 20:00] VITALS: BP 129/73; PULSE 70; RESP 16
[2018-09-11 02:00] VITALS: BP 112/68; PULSE 78; RESP 18
[2018-09-11] MEDS: ACCU-CHEK XX SCH (02:00)
[2018-09-11] MEDS: PANTOPRAZOLE 40 MG INJ IV SCH ×2 (05:25→17:30)
[2018-09-11] MEDS: INSULIN ASPART [NOVOLOG] 3 ML PEN SC SCH ×4 (07:00→21:00)
[2018-09-11 07:40] VITALS: BP 100/62; PULSE 74; RESP 16
[2018-09-11] MEDS: SUCRALFATE (100 MG/ML) 10ML CUP PO SCH ×4 (08:51→21:05)
[2018-09-11] MEDS: ZYVOX 600 MG TAB PO SCH ×2 (08:52→21:05)
[2018-09-11] MEDS: CALCIUM ACETATE 667 MG CAP GTB SCH ×3 (08:52→17:30)
[2018-09-11] MEDS: METOPROLOL 25 MG TAB PO SCH ×2 (08:55→21:06)
--- NOTE | 2018-09-11 11:24 | CONS ---
Date/Time of Note Date/Time of Note DATE: 09/11/18 TIME: 11:22 Assessment/Plan Assessment/Plan Assessment/Plan 1. ARF continues to improve with neg fluid balance 2. No change in neuro defecit 3. Anemia is stable 4. Abx per id Result Diagram: 09/11/18 0524 09/11/18 0524 Results 24hrs Laboratory Tests Test 09/10/18 12:21 09/10/18 12:21 09/10/18 13:51 09/10/18 17:40 White Blood Count 14.1 H Red Blood Count 3.37 L Hemoglobin 10.4 L Hematocrit 31.5 L Mean Corpuscular 93.5 Volume Mean Corpuscular 30.9 Hemoglobin Mean Corpuscular 33.0 Hemoglobin Concent Red Cell Distribution 13.6 Width Platelet Count 405 Mean Platelet Volume 9.2 Immature Granulocytes 1.800 H % Neutrophils % 70.6 Lymphocytes % 11.0 L Monocytes % 7.6 Eosinophils % 7.9 H Basophils % 1.1 Nucleated Red Blood 0.3 H Cells % Immature Granulocytes 0.250 H # Neutrophils # 9.9 H Lymphocytes # 1.6 Monocytes # 1.1 H Eosinophils # 1.1 H Basophils # 0.2 H Nucleated Red Blood 0.0 Cells # Sodium Level 137 Potassium Level 3.7 Chloride Level 100 Carbon Dioxide Level 27 Anion Gap 10 Blood Urea Nitrogen 67 H Creatinine 3.32 H Est Glomerular 22 L Filtrat Rate mL/min Glucose Level 148 # Calcium Level 9.6 Phosphorus Level 5.2 H Magnesium Level 2.0 Lab Scanned Report REFERENCE LAB Bedside Glucose 138 111 Test 09/10/18 21:12 09/11/18 05:24 09/11/18 08:51 Bedside Glucose 126 114 White Blood Count 13.0 H Red Blood Count 3.38 L Hemoglobin 10.3 L Hematocrit 31.8 L Mean Corpuscular 94.1 Volume Mean Corpuscular 30.5 Hemoglobin Mean Corpuscular 32.4 Hemoglobin Concent Red Cell Distribution 13.8 Width Platelet Count 418 H Mean Platelet Volume 9.9 Immature Granulocytes 2.300 H % Neutrophils % 67.4 Lymphocytes % 11.6 L Monocytes % 7.9 Eosinophils % 9.4 H Basophils % 1.4 Nucleated Red Blood 0.2 H Cells % Immature Granulocytes 0.300 H # Neutrophils # 8.8 H Lymphocytes # 1.5 Monocytes # 1.0 H Eosinophils # 1.2 H Basophils # 0.2 H Nucleated Red Blood 0.0 Cells # Sodium Level 140 Potassium Level 3.7 Chloride Level 100 Carbon Dioxide Level 27 Anion Gap 13 Blood Urea Nitrogen 69 H Creatinine 2.99 H Est Glomerular 24 L Filtrat Rate mL/min Glucose Level 110 Calcium Level 9.8 Phosphorus Level 5.1 H Magnesium Level 2.0 Consultation Date/Type/Reason Admit Date/Time Aug 20, 2018 at 21:39 Initial Consult Date 08/21/18 Requesting Provider: YUMIKO JC MD Detailed Summary Respiratory: No shortness of breath Cardiovascular: No chest pain Gastrointestinal: No pain Genitourinary: other (schwartz in place) Exam/Review of Systems Vital Signs Vitals Vital Signs Date Temp Pulse Resp B/P (MAP) Pulse Ox O2 O2 Flow FiO2 Time Delivery Rate 09/11/18 98.2 74 16 100/62 100 Room Air 07:40 (75) Intake and Output 09/10/18 09/10/18 09/11/18 1515:00 23:00 07:00 IntakeIntake Total 1320 ml 600 ml 480 ml OutputOutput Total 1750 ml 400 ml 2500 ml BalanceBalance -430 ml 200 ml -2020 ml Exam Neck: No jvd Respiratory: clear to auscultation Cardiovascular: regular rate and rhythm Gastrointestinal: soft Extremities: No edema Neurological: other (can raise arms slightly, can move right foot (no change)) Medications Medications Current Medications Albuterol (Ventolin Hfa) 4 puff Q2H RESP THERAPY PRN INH SHORTNESS OF BREATH; Start 08/20/18 at 22:00 Ipratropium [place] (Atrovent Hfa) 4 puff Q2H RESP THERAPY PRN INH SHORTNESS OF BREATH; Start 08/20/18 at 22:00 Acetaminophen (Tylenol Liquid) 650 mg Q6H PRN PO PAIN LEVEL 1-3 OR FEVER Last administered on 09/10/18at 11:22; Admin Dose 650 MG; Start 08/20/18 at 22:00 Miscellaneous Information 1 ea NOTE XX ; Start 08/21/18 at 16:30 Glucose (Glutose) 15 gm Q15M PRN PO DECREASED GLUCOSE; Start 08/21/18 at 16:30 Glucose (Glutose) 22.5 gm Q15M PRN PO DECREASED GLUCOSE; Start 08/21/18 at 16:30 Dextrose (D50w Syringe) 25 ml Q15M PRN IV DECREASED GLUCOSE; Start 08/21/18 at 16:30 Dextrose (D50w Syringe) 50 ml Q15M PRN IV DECREASED GLUCOSE; Start 08/21/18 at 16:30 Glucagon (Glucagen) 1 mg Q15M PRN IM DECREASED GLUCOSE; Start 08/21/18 at 16:30 Glucose (Glutose) 15 gm Q15M PRN BUCCAL DECREASED GLUCOSE; Start 08/21/18 at 16:30 Metoprolol Tartrate (Lopressor) 25 mg BID PO Last administered on 09/11/18 08 :55; Admin Dose 25 MG; Start 08/23/18 at 21:00 Epinephrine (Racepinephrine 2.25% (Neb)) 0.25 ml Q3H RESP THERAPY PRN HHN STRIDOR; Start 08/23/18 at 17:00 Ondansetron HCl (Zofran Inj) 4 mg Q6H PRN IV NAUSEA AND/OR VOMITING Last administered on 08/25/18at 21:47; Admin Dose 4 MG; Start 08/25/18 at 21:30 Diagnostic Test (Pha) (Accu-Chek) 1 ea 02 XX ; Start 08/27/18 at 02:00 Heparin Sodium (Porcine) (Heparin (5000 Units/1ml)) 5,000 unit Q8 SC Last administered on 09/01/18at 14:27; Admin Dose 5,000 UNIT; Start 08/29/18 at 14:00; Status Hold Epoetin Isacc (Epogen (Non Esrd/Non Oncology)) 10,000 units MoWeFr@17 SC Last administered on 09/09/18 18:08; Admin Dose 10,000 UNITS; Start 08/29/18 at 17:00 Albumin Human 50 ml @ 100 mls/hr DURING DIALYSIS PRN IV During HD. Last administered on 08/29/18at 13:55; Admin Dose 100 MLS/HR; Start 08/29/18 at 12:30 Aspirin (Aspirin) 81 mg DAILY PO Last administered on 09/03/18 08:37; Admin Dose 81 MG; Start 08/30/18 at 09:00; Status Hold Calcium Acetate (Phoslo) 1,334 mg WITH MEALS GTB Last administered on 09/11/18 08:52; Admin Dose 1,334 MG; Start 08/31/18 at 12:00 Heparin Sodium (Porcine) (Heparin (1000 Units/ml)) 3,000 unit AFTER DIALYSIS CATHETER Last administered on 09/05/18at 10:12; Admin Dose 3,000 UNIT; Start 09/01/18 at 12:30 Sucralfate (Carafate Susp) 1 gm QID PO Last administered on 09/11/18 08:51; Admin Dose 1 GM; Start 09/01/18 at 16:00 Pantoprazole (Protonix Iv) 40 mg BID@,18 IV Last administered on 09/11/18 05:25; Admin Dose 40 MG; Start 09/01/18 at 18:00 Insulin Aspart (Novolog Insulin Pen) (Adult SC Insulin - Mild Algorithm)... AC MEALS AND BEDTIME SC Last administered on 09/10/18 09:38; Admin Dose 1 UNIT; Start 09/03/18 at 07:00 Linezolid (Zyvox) 600 mg BID PO Last administered on 09/11/18 08:52; Admin Dose 600 MG; Start 09/08/18 at 12:30 Levofloxacin (Levaquin) 250 mg Q2D@0600 PO Last administered on 09/10/18 06:41; Admin Dose 250 MG; Start 09/08/18 at 15:00 MAXIMO TAY MD Sep 11, 2018 11:24
--- NOTE | 2018-09-11 12:42 | CONS ---
Date/Time of Note Date/Time of Note DATE: 09/11/18 TIME: 12:39 Assessment/Plan Assessment/Plan Result Diagram: 09/11/18 0524 09/11/18 0524 Results 24hrs Laboratory Tests Test 09/10/18 13:51 09/10/18 17:40 09/10/18 21:12 09/11/18 05:24 Bedside Glucose 138 111 126 White Blood Count 13.0 H Red Blood Count 3.38 L Hemoglobin 10.3 L Hematocrit 31.8 L Mean Corpuscular Volume 94.1 Mean Corpuscular 30.5 Hemoglobin Mean Corpuscular 32.4 Hemoglobin Concent Red Cell Distribution 13.8 Width Platelet Count 418 H Mean Platelet Volume 9.9 Immature Granulocytes % 2.300 H Neutrophils % 67.4 Lymphocytes % 11.6 L Monocytes % 7.9 Eosinophils % 9.4 H Basophils % 1.4 Nucleated Red Blood 0.2 H Cells % Immature Granulocytes # 0.300 H Neutrophils # 8.8 H Lymphocytes # 1.5 Monocytes # 1.0 H Eosinophils # 1.2 H Basophils # 0.2 H Nucleated Red Blood 0.0 Cells # Sodium Level 140 Potassium Level 3.7 Chloride Level 100 Carbon Dioxide Level 27 Anion Gap 13 Blood Urea Nitrogen 69 H Creatinine 2.99 H Est Glomerular Filtrat 24 L Rate mL/min Glucose Level 110 Calcium Level 9.8 Phosphorus Level 5.1 H Magnesium Level 2.0 Test 09/11/18 08:51 Bedside Glucose 114 Consultation Date/Type/Reason Admit Date/Time Aug 20, 2018 at 21:39 Initial Consult Date SUBJECTIVE: Patient is awake, afebrile. Resting in bed. No fevers. VS: stable. T: 98.2 LABS: Reviewed. WBC-13.0 Indwelling's: Suh catheter MICROBIOLOGY: Culture of right femoral Saurabh catheter site grew Pseudomonas, VRE and Enterobacter Antimicrobials: Zyvox, Levaquin Physical examination: GEN:Well-nourished well-developed middle-aged man who is in no distress. HEAD: atraumatic normocephalic sclera nonicteric. NECK: supple CHEST: rise symmetrical breath sounds diminished bases. HEART: S1-S2, tachycardic. ABDOMEN: soft bowel sounds present. Extremities with bilateral edema Assessment: 1. Resolving sepsis status post shock 2. Acute encephalopathy, resolving 3. Acute hypoxemic respiratory failure 4. Pneumonia possibly aspirated 5. Pulmonary edema 6. Acute renal failure, on hemodialysis 7. Transaminitis, possibly shock liver 8. Polysubstance abuse Plan: Pt continuing to gradually improve. WBC decreasing. No fevers. Continue current antbx treatment. Physical examination: Well-nourished well-developed middle-aged man who is in no distress. Head atraumatic normocephalic sclera nonicteric. Neck is supple chest rise symmetrical breath sounds diminished bases. Heart: S1-S2, tach ycardic. Abdomen soft bowel sounds present. Extremities with bilateral edema Assessment: 1. Systemic inflammatory response syndrome with leukocytosis and ongoing fevers, likely line sepsis 2. Status post Gram-positive cocci bacteremia, possibly line sepsis, s/p TLC dc'd 3. Status post acute encephalopathy 4. Status post acute hypoxemic respiratory failure 5. Pulmonary edema 6. Acute renal failure, on hemodialysis 7. Severe anasarca 8. History of polysubstance abuse 9. Muscle weakness Plan: Remains stable, line free, continue abx, neuro/renal rec-s Requesting Provider: YUMIKO JC MD Exam/Review of Systems Vital Signs Vitals Vital Signs Date Temp Pulse Resp B/P (MAP) Pulse Ox O2 O2 Flow FiO2 Time Delivery Rate 09/11/18 98.2 74 16 100/62 100 Room Air 07:40 (75) Intake and Output 09/10/18 09/10/18 09/11/18 1515:00 23:00 07:00 IntakeIntake Total 1320 ml 600 ml 480 ml OutputOutput Total 1750 ml 400 ml 2500 ml BalanceBalance -430 ml 200 ml -2020 ml Medications Medications Current Medications Albuterol (Ventolin Hfa) 4 puff Q2H RESP THERAPY PRN INH SHORTNESS OF BREATH; Start 08/20/18 at 22:00 Ipratropium [place] (Atrovent Hfa) 4 puff Q2H RESP THERAPY PRN INH SHORTNESS OF BREATH; Start 08/20/18 at 22:00 Acetaminophen (Tylenol Liquid) 650 mg Q6H PRN PO PAIN LEVEL 1-3 OR FEVER Last administered on 09/10/18at 11:22; Admin Dose 650 MG; Start 08/20/18 at 22:00 Miscellaneous Information 1 ea NOTE XX ; Start 08/21/18 at 16:30 Glucose (Glutose) 15 gm Q15M PRN PO DECREASED GLUCOSE; Start 08/21/18 at 16:30 Glucose (Glutose) 22.5 gm Q15M PRN PO DECREASED GLUCOSE; Start 08/21/18 at 16:30 Dextrose (D50w Syringe) 25 ml Q15M PRN IV DECREASED GLUCOSE; Start 08/21/18 at 16:30 Dextrose (D50w Syringe) 50 ml Q15M PRN IV DECREASED GLUCOSE; Start 08/21/18 at 16:30 Glucagon (Glucagen) 1 mg Q15M PRN IM DECREASED GLUCOSE; Start 08/21/18 at 16:30 Glucose (Glutose) 15 gm Q15M PRN BUCCAL DECREASED GLUCOSE; Start 08/21/18 at 16:30 Metoprolol Tartrate (Lopressor) 25 mg BID PO Last administered on 09/11/18at 08:55; Admin Dose 25 MG; Start 08/23/18 at 21:00 Epinephrine (Racepinephrine 2.25% (Neb)) 0.25 ml Q3H RESP THERAPY PRN HHN STRIDOR; Start 08/23/18 at 17:00 Ondansetron HCl (Zofran Inj) 4 mg Q6H PRN IV NAUSEA AND/OR VOMITING Last administered on 08/25/18at 21:47; Admin Dose 4 MG; Start 08/25/18 at 21:30 Diagnostic Test (Pha) (Accu-Chek) 1 ea 02 XX ; Start 08/27/18 at 02:00 Heparin Sodium (Porcine) (Heparin (5000 Units/1ml)) 5,000 unit Q8 SC Last administered on 09/01/18at 14:27; Admin Dose 5,000 UNIT; Start 08/29/18 at 14:00; Status Hold Epoetin Isacc (Epogen (Non Esrd/Non Oncology)) 10,000 units MoWeFr@17 SC Last administered on 09/09/18 18:08; Admin Dose 10,000 UNITS; Start 08/29/18 at 17:00 Albumin Human 50 ml @ 100 mls/hr DURING DIALYSIS PRN IV During HD. Last administered on 08/29/18at 13:55; Admin Dose 100 MLS/HR; Start 08/29/18 at 12:30 Aspirin (Aspirin) 81 mg DAILY PO Last administered on 09/03/18at 08:37; Admin Dose 81 MG; Start 08/30/18 at 09:00; Status Hold Calcium Acetate (Phoslo) 1,334 mg WITH MEALS GTB Last administered on 09/11/18 12:32; Admin Dose 1,334 MG; Start 08/31/18 at 12:00 Heparin Sodium (Porcine) (Heparin (1000 Units/ml)) 3,000 unit AFTER DIALYSIS CATHETER Last administered on 09/05/18at 10:12; Admin Dose 3,000 UNIT; Start 09/01/18 at 12:30 Sucralfate (Carafate Susp) 1 gm QID PO Last administered on 09/11/18 12:32; Ad min Dose 1 GM; Start 09/01/18 at 16:00 Pantoprazole (Protonix Iv) 40 mg BID@18 IV Last administered on 09/11/18 05:25; Admin Dose 40 MG; Start 09/01/18 at 18:00 Insulin Aspart (Novolog Insulin Pen) (Adult SC Insulin - Mild Algorithm)... AC MEALS AND BEDTIME SC Last administered on 09/10/18 09:38; Admin Dose 1 UNIT; Start 09/03/18 at 07:00 Linezolid (Zyvox) 600 mg BID PO Last administered on 09/11/18 08:52; Admin Dose 600 MG; Start 09/08/18 at 12:30 Levofloxacin (Levaquin) 250 mg Q2D@0600 PO Last administered on 09/10/18 06:41; Admin Dose 250 MG; Start 09/08/18 at 15:00 Fluconazole (Diflucan) 100 mg DAILY PO ; Start 09/11/18 at 12:00 SHANTANU DE LEON Sep 11, 2018 12:42
[2018-09-11 13:44] VITALS: BP 118/72; PULSE 75; RESP 18
--- NOTE | 2018-09-11 14:38 | PN ---
Date/Time of Note Date/Time of Note DATE: 09/11/18 TIME: 14:36 Assessment/Plan VTE Prophylaxis Risk score (from Ns)>0 risk: 4 SCD applied (from Ns): No SCD contraindicated: other Pharmacological prophylaxis: heparin Lines/Catheters IV [facility] [place] Urinary Cath still in place: Yes Reason Cath still needed: urinary retention Assessment/Plan Hospital Course S: Patient had no fevers other acute events overnight. Tolerating diet. Having improved urine output. Seen by ID and renal teams earlier today. O: VS - see below PE: Gen: Lying in bed, a bit more alert, but still overall lethargic Eyes: Pupils equal round reactive to light, extraocular muscles intact HEENT: PERRL, moist mucous membranes, Card: Regular rate and rhythm no murmurs Pulm: CTA bilaterally, no crackles. Abd: Soft, nondistended. Ext: No cyanosis/clubbing/edema Neuro: Still weak overall Assessment/Plan: 33 yo man brought in found down with subsequent JULIAN secondary to rhabdomyolysis; positive for alcohol, methamphetamine, cannabis, opioids as well. # Renal failure- Oliguric renal failure with hyperkalemia (after potassium replacement), also presented with severe metabolic acidosis- Likely due to a combination of rhabdo and drug use. CK levels normal now, but patient has been dialysis dependent. - Continue to follow renal recommendations, again Saurabh catheter out and patient appears to be urinating adequately now, follow BMP results to monitor BUN/creatinine levels - Patient may be having adequate renal recovery at this point, per renal documentation, and may not need another catheter insertion, will monitor #Hematochezia- Nurse reported maroon colored stool on 09/01- EGD 09/02 only with mild gastritis and distal esophagitis- MD witnessed maroon colored, grainy stool on 09/03. Rectal exam negative for external hemorrhoids or palpable internal hemorrhoids. Colonoscopy showed solitary rectal ulcer syndrome, bleeding likely from the rectal ulcer. -For now continue PPI BID and carafate, follow-up GI recommendations -Monitor hemoglobin, appears improved after PRBC transfusion given 6 days ago #Encephalopathy and Polyneuropathy- Despite extubation on 08/24, he remains le thargic and weak.- Head CT 08/20 negative- Repeat CT on 08/31 shows some edema of the basal ganglia, confirmed on MRI, this likely represents residual toxic metabolic effect - TSH, ammonia, AM cortisol are normal. CK has normalized-also there is associated with proximal muscle weakness but intact sensation-MRI C spine was most notable for signal changes within the paraspinal musculature of C3-C4 through C5-C6... which is likely a sequelae of rhabdomyolysis. Appreciate neurosurgery evaluation and comments. -Monitor, follow-up recommendations from neurology/neurosurgery -Reorient as needed -Continue physical therapy and occupational therapy, and case management is looking for placement options for patient so that he can get continued extensive therapy to help in strength recovery #Bacteremia- Had fever on 08/27 - Blood culture (x1 unfortunately) from that day is growing coag negative staph, a common contaminant. Repeat blood culture negative.- D/Matias right IJ. But his femoral dialysis catheter may also be a source of infection -and now in fact his wound culture from the groin area where the dialysis catheter is, is growing positive Pseudomonas, Enterobacter, and VRE -Continue Levaquin and Zyvox - Follow-up ID recommendations -again Saurabh line was removed yesterday, follow-up culture results of the tip # acute respiratory failure- extubated 08/24, was likely secondary to polysubstance overdose resulting in multiorgan dysfunction; patient had subsequent severe metabolic acidosis with inadequate respiratory compensation- now oxygen levels stable - s/p antibiotic treatment for CAP earlier this admission -Monitor, continue oxygen supplementation as needed # Elevated troponin-now appears stable- CV consulted earlier this admission. L ikely demand ischemia from drug use. - Will not treat per NSTEMI protocol, monitor, follow-up cardiology recommendations # transaminitis: - May be from shock liver or drug use.- Hep B, Hep C negative. LFTs have trended down. # Rhabdomyolysis - resolved # Coagulopathy- May be due to liver and renal injury as well as drug use- No DIC. Resolved. # polysubstance abuse - Again patient was found to be positive for opioids, methamphetamine, marijuana and an elevated blood alcohol level. -Earlier this admission ordered for thiamine 300 mg IM daily times 3 days, further treatment as per the clinical course # DVT and GI prophylaxis: Protonix twice daily Result Diagram: 09/11/1852309/11/18523 Results 24hrs Laboratory Tests Test 09/10/18 17:40 09/10/18 21:12 09/11/18 05:24 09/11/18 08:51 Bedside Glucose 111 126 114 White Blood Count 13.0 H Red Blood Count 3.38 L Hemoglobin 10.3 L Hematocrit 31.8 L Mean Corpuscular Volume 94.1 Mean Corpuscular 30.5 Hemoglobin Mean Corpuscular 32.4 Hemoglobin Concent Red Cell Distribution 13.8 Width Platelet Count 418 H Mean Platelet Volume 9.9 Immature Granulocytes % 2.300 H Neutrophils % 67.4 Lymphocytes % 11.6 L Monocytes % 7.9 Eosinophils % 9.4 H Basophils % 1.4 Nucleated Red Blood 0.2 H Cells % Immature Granulocytes # 0.300 H Neutrophils # 8.8 H Lymphocytes # 1.5 Monocytes # 1.0 H Eosinophils # 1.2 H Basophils # 0.2 H Nucleated Red Blood 0.0 Cells # Sodium Level 140 Potassium Level 3.7 Chloride Level 100 Carbon Dioxide Level 27 Anion Gap 13 Blood Urea Nitrogen 69 H Creatinine 2.99 H Est Glomerular Filtrat 24 L Rate mL/min Glucose Level 110 Calcium Level 9.8 Phosphorus Level 5.1 H Magnesium Level 2.0 Test 09/11/18 12:33 Bedside Glucose 115 Exam/Review of Systems Vital Signs Vitals Vital Signs Date Temp Pulse Resp B/P (MAP) Pulse Ox O2 O2 Flow FiO2 Time Delivery Rate 09/11/18 98.2 75 18 118/72 96 Room Air 13:44 (87) Intake and Output 09/10/18 09/10/18 09/11/18 1515:00 23:00 07:00 IntakeIntake Total 1320 ml 600 ml 480 ml OutputOutput Total 1750 ml 400 ml 2500 ml BalanceBalance -430 ml 200 ml -2020 ml Medications Medications Current Medications Albuterol (Ventolin Hfa) 4 puff Q2H RESP THERAPY PRN INH SHORTNESS OF BREATH; Start 08/20/18 at 22:00 Ipratropium [place] (Atrovent Hfa) 4 puff Q2H RESP THERAPY PRN INH SHORTNESS OF BREATH; Start 08/20/18 at 22:00 Acetaminophen (Tylenol Liquid) 650 mg Q6H PRN PO PAIN LEVEL 1-3 OR FEVER Last administered on 09/10/18at 11:22; Admin Dose 650 MG; Start 08/20/18 at 22:00 Miscellaneous Information 1 ea NOTE XX ; Start 08/21/18 at 16:30 Glucose (Glutose) 15 gm Q15M PRN PO DECREASED GLUCOSE; Start 08/21/18 at 16:30 Glucose (Glutose) 22.5 gm Q15M PRN PO DECREASED GLUCOSE; Start 08/21/18 at 16:30 Dextrose (D50w Syringe) 25 ml Q15M PRN IV DECREASED GLUCOSE; Start 08/21/18 at 16:30 Dextrose (D50w Syringe) 50 ml Q15M PRN IV DECREASED GLUCOSE; Start 08/21/18 at 16:30 Glucagon (Glucagen) 1 mg Q15M PRN IM DECREASED GLUCOSE; Start 08/21/18 at 16:30 Glucose (Glutose) 15 gm Q15M PRN BUCCAL DECREASED GLUCOSE; Start 08/21/18 at 16:30 Metoprolol Tartrate (Lopressor) 25 mg BID PO Last administered on 09/11/18at 08:55; Admin Dose 25 MG; Start 08/23/18 at 21:00 Epinephrine (Racepinephrine 2.25% (Neb)) 0.25 ml Q3H RESP THERAPY PRN HHN STRIDOR; Start 08/23/18 at 17:00 Ondansetron HCl (Zofran Inj) 4 mg Q6H PRN IV NAUSEA AND/OR VOMITING Last administered on 08/25/18at 21:47; Admin Dose 4 MG; Start 08/25/18 at 21:30 Diagnostic Test (Pha) (Accu-Chek) 1 ea 02 XX ; Start 08/27/18 at 02:00 Heparin Sodium (Porcine) (Heparin (5000 Units/1ml)) 5,000 unit Q8 SC Last administered on 09/01/18at 14:27; Admin Dose 5,000 UNIT; Start 08/29/18 at 14:00; Status Hold Epoetin Isacc (Epogen (Non Esrd/Non Oncology)) 10,000 units MoWeFr@17 SC Last administered on 09/09/18 18:08; Admin Dose 10,000 UNITS; Start 08/29/18 at 17:00 Albumin Human 50 ml @ 100 mls/hr DURING DIALYSIS PRN IV During HD. Last administered on 08/29/18at 13:55; Admin Dose 100 MLS/HR; Start 08/29/18 at 12:30 Aspirin (Aspirin) 81 mg DAILY PO Last administered on 09/03/18at 08:37; Admin Dose 81 MG; Start 08/30/18 at 09:00; Status Hold Calcium Acetate (Phoslo) 1,334 mg WITH MEALS GTB Last administered on 09/11/18 12:32; Admin Dose 1,334 MG; Start 08/31/18 at 12:00 Heparin Sodium (Porcine) (Heparin (1000 Units/ml)) 3,000 unit AFTER DIALYSIS CATHETER Last administered on 09/05/18at 10:12; Admin Dose 3,000 UNIT; Start 09/01/18 at 12:30 Sucralfate (Carafate Susp) 1 gm QID PO Last administered on 09/11/18 12:32; Admin Dose 1 GM; Start 09/01/18 at 16:00 Pantoprazole (Protonix Iv) 40 mg BID@18 IV Last administered on 09/11/18 05: 25; Admin Dose 40 MG; Start 09/01/18 at 18:00 Insulin Aspart (Novolog Insulin Pen) (Adult SC Insulin - Mild Algorithm)... AC MEALS AND BEDTIME SC Last administered on 09/10/18 09:38; Admin Dose 1 UNIT; Start 09/03/18 at 07:00 Linezolid (Zyvox) 600 mg BID PO Last administered on 09/11/18 08:52; Admin Dose 600 MG; Start 09/08/18 at 12:30 Levofloxacin (Levaquin) 250 mg Q2D@0600 PO Last administered on 09/10/18 06:41; Admin Dose 250 MG; Start 09/08/18 at 15:00 Fluconazole (Diflucan) 100 mg DAILY PO ; Start 09/11/18 at 12:00 CINTIA ESPINOSA Sep 11, 2018 14:38
[2018-09-11] MEDS: FLUCONAZOLE 100 MG TAB PO SCH (15:33)
[2018-09-11 20:00] VITALS: BP 116/67; PULSE 84; RESP 18
[2018-09-11 21:00] VITALS: BP 116/69; PULSE 73
[2018-09-12] MEDS: ACCU-CHEK XX SCH (01:28)
[2018-09-12 02:00] VITALS: BP 114/75; PULSE 71; RESP 18
[2018-09-12] MEDS: PANTOPRAZOLE 40 MG INJ IV SCH ×2 (05:39→17:48)
[2018-09-12] MEDS: LEVOFLOXACIN 250 MG TAB PO SCH (06:59)
[2018-09-12 07:18] VITALS: BP 115/70; PULSE 67; RESP 16
[2018-09-12] MEDS: INSULIN ASPART [NOVOLOG] 3 ML PEN SC SCH ×4 (08:03→21:00)
[2018-09-12] MEDS: FLUCONAZOLE 100 MG TAB PO SCH (08:28)
[2018-09-12] MEDS: METOPROLOL 25 MG TAB PO SCH ×2 (08:28→21:18)
[2018-09-12] MEDS: CALCIUM ACETATE 667 MG CAP GTB SCH ×3 (08:29→17:48)
[2018-09-12] MEDS: SUCRALFATE (100 MG/ML) 10ML CUP PO SCH ×4 (08:29→21:17)
[2018-09-12] MEDS: ZYVOX 600 MG TAB PO SCH ×2 (08:29→21:17)
--- NOTE | 2018-09-12 08:34 | CONS ---
Date/Time of Note Date/Time of Note DATE: 09/12/18 TIME: 08:32 Assessment/Plan Assessment/Plan Assessment/Plan 1. ARF continues to improve, still volume expanded so no IV need now. 2. No change in cognition and neuro deficit 3. Antibiotics per ID Result Diagram: 09/12/18 0449 09/12/18 0449 Results 24hrs Laboratory Tests Test 09/11/18 08:51 09/11/18 12:33 09/11/18 17:28 09/11/18 21:09 Bedside Glucose 114 115 104 122 Test 09/12/18 04:49 09/12/18 08:02 White Blood Count 11.7 H Red Blood Count 3.56 L Hemoglobin 10.9 L Hematocrit 33.7 L Mean Corpuscular Volume 94.7 Mean Corpuscular 30.6 Hemoglobin Mean Corpuscular 32.3 Hemoglobin Concent Red Cell Distribution 13.5 Width Platelet Count 407 Mean Platelet Volume 9.9 Immature Granulocytes % 2.500 H Neutrophils % 64.0 Lymphocytes % 14.1 L Monocytes % 7.9 Eosinophils % 9.9 H Basophils % 1.6 Nucleated Red Blood 0.3 H Cells % Immature Granulocytes # 0.290 H Neutrophils # 7.5 Lymphocytes # 1.7 Monocytes # 0.9 Eosinophils # 1.2 H Basophils # 0.2 H Nucleated Red Blood 0.0 Cells # Sodium Level 144 Potassium Level 3.7 Chloride Level 99 Carbon Dioxide Level 28 Anion Gap 17 H Blood Urea Nitrogen 72 H Creatinine 2.43 H Est Glomerular Filtrat 31 L Rate mL/min Glucose Level 107 Calcium Level 9.8 Phosphorus Level 5.0 H Magnesium Level 1.9 Bedside Glucose 105 Consultation Date/Type/Reason Admit Date/Time Aug 20, 2018 at 21:39 Initial Consult Date 08/21/18 Requesting Provider: YUMIKO JC MD 24 HR Interval Summary Constitutional: other (Responds to name) Detailed Summary Cardiovascular: No chest pain Gastrointestinal: No pain Genitourinary: other (schwartz in place) Exam/Review of Systems Vital Signs Vitals Vital Signs Date Temp Pulse Resp B/P (MAP) Pulse Ox O2 O2 Flow FiO2 Time Delivery Rate 09/12/18 98.4 67 16 115/70 99 07:18 (85) 09/12/18 Room Air 02:00 Intake and Output 09/11/18 09/11/18 09/12/18 1515:00 23:00 07:00 IntakeIntake Total 2400 ml 480 ml OutputOutput Total 1800 ml 400 ml BalanceBalance 600 ml 80 ml Exam Neck: No jvd Respiratory: clear to auscultation Cardiovascular: regular rate and rhythm Gastrointestinal: soft Extremities: No edema (of legs and dec upper extrem edema) Neurological: other (no change with inability to move right foot) Medications Medications Current Medications Albuterol (Ventolin Hfa) 4 puff Q2H RESP THERAPY PRN INH SHORTNESS OF BREATH; Start 08/20/18 at 22:00 Ipratropium [place] (Atrovent Hfa) 4 puff Q2H RESP THERAPY PRN INH SHORTNESS OF BREATH; Start 08/20/18 at 22:00 Acetaminophen (Tylenol Liquid) 650 mg Q6H PRN PO PAIN LEVEL 1-3 OR FEVER Last administered on 09/10/18at 11:22; Admin Dose 650 MG; Start 08/20/18 at 22:00 Miscellaneous Information 1 ea NOTE XX ; Start 08/21/18 at 16:30 Glucose (Glutose) 15 gm Q15M PRN PO DECREASED GLUCOSE; Start 08/21/18 at 16:30 Glucose (Glutose) 22.5 gm Q15M PRN PO DECREASED GLUCOSE; Start 08/21/18 at 16:30 Dextrose (D50w Syringe) 25 ml Q15M PRN IV DECREASED GLUCOSE; Start 08/21/18 at 16:30 Dextrose (D50w Syringe) 50 ml Q15M PRN IV DECREASED GLUCOSE; Start 08/21/18 at 16:30 Glucagon (Glucagen) 1 mg Q15M PRN IM DECREASED GLUCOSE; Start 08/21/18 at 16:30 Glucose (Glutose) 15 gm Q15M PRN BUCCAL DECREASED GLUCOSE; Start 08/21/18 at 16:30 Metoprolol Tartrate (Lopressor) 25 mg BID PO Last administered on 09/11/18at 21:06; Admin Dose 25 MG; Start 08/23/18 at 21:00 Epinephrine (Racepinephrine 2.25% (Neb)) 0.25 ml Q3H RESP THERAPY PRN HHN STRIDOR; Start 08/23/18 at 17:00 Ondansetron HCl (Zofran Inj) 4 mg Q6H PRN IV NAUSEA AND/OR VOMITING Last administered on 08/25/18at 21:47; Admin Dose 4 MG; Start 08/25/18 at 21:30 Diagnostic Test (Pha) (Accu-Chek) 1 ea 02 XX ; Start 08/27/18 at 02:00 Heparin Sodium (Porcine) (Heparin (5000 Units/1ml)) 5,000 unit Q8 SC Last administered on 09/01/18 14:27; Admin Dose 5,000 UNIT; Start 08/29/18 at 14:00; Status Hold Epoetin Isacc (Epogen (Non Esrd/Non Oncology)) 10,000 units MoWeFr@17 SC Last administered on 09/09/18 18:08; Admin Dose 10,000 UNITS; Start 08/29/18 at 17:00 Albumin Human 50 ml @ 100 mls/hr DURING DIALYSIS PRN IV During HD. Last administered on 08/29/18 13:55; Admin Dose 100 MLS/HR; Start 08/29/18 at 12:30 Aspirin (Aspirin) 81 mg DAILY PO Last administered on 09/03/18 08:37; Admin Dose 81 MG; Start 08/30/18 at 09:00; Status Hold Calcium Acetate (Phoslo) 1,334 mg WITH MEALS GTB Last administered on 09/11/18 17:30; Admin Dose 1,334 MG; Start 08/31/18 at 12:00 Heparin Sodium (Porcine) (Heparin (1000 Units/ml)) 3,000 unit AFTER DIALYSIS CATHETER Last administered on 09/05/18at 10:12; Admin Dose 3,000 UNIT; Start 09/01/18 at 12:30 Sucralfate (Carafate Susp) 1 gm QID PO Last administered on 09/11/18 21:05; Admin Dose 1 GM; Start 09/01/18 at 16:00 Pantoprazole (Protonix Iv) 40 mg BID@06,18 IV Last administered on 09/12/18 05:39; Admin Dose 40 MG; Start 09/01/18 at 18:00 Insulin Aspart (Novolog Insulin Pen) (Adult SC Insulin - Mild Algorithm)... AC MEALS AND BEDTIME SC Last administered on 09/10/18 09:38; Admin Dose 1 UNIT; Start 09/03/18 at 07:00 Linezolid (Zyvox) 600 mg BID PO Last administered on 1/6/19at 21:05; Admin Dose 600 MG; Start 09/08/18 at 12:30 Levofloxacin (Levaquin) 250 mg Q2D@0600 PO Last administered on 09/12/18at 06:59; Admin Dose 250 MG; Start 09/08/18 at 15:00 Fluconazole (Diflucan) 100 mg DAILY PO Last administered on 09/11/18at 15:33; Admin Dose 100 MG; Start 09/11/18 at 12:00 MAXIMO TAY MD Sep 12, 2018 08:34
--- NOTE | 2018-09-12 13:03 | CONS ---
Assessment/Plan Assessment/Plan Hospital Course A: 33 yo M with uncertain PMH who presents for evaluation of altered mental status..for which neurology is consulted.. UDS + for amphetamines, opioids, EtOH, cannabis He was reported to be severely hypoglycemic in the field. JULIAN+ CK++++ Clinically consistent with an acute and multifactorial toxic-metabolic encephalopathy. Stroke is unlikely. Seizure is unlikely. CTH (08/20) was unrevealing. Repeat CTH was most notable for bilateral globus pallidus edema MRI is notable for sequelae of a toxic-metabolic insult.. As an aside, he has profound 4-limb weakness on exam, which does not appear to be improving w/ his mental status.. MRI C spine was most notable for signal changes within the paraspinal m usculature of C3-C4 through C5-C6... which is a likely sequelae of rhabdomyolysis. P: Ok to defer additional neuroimaging for now. Cont medical management per primary Reorient as necessary Limit sedating medications where possible PT/OT as tolerated Will follow clinically, to make further neurologic recommendations as necessary Result Diagram: 09/12/18 0449 09/12/18 0449 Results 24hrs Laboratory Tests Test 09/11/18 17:28 09/11/18 21:09 09/12/18 04:49 09/12/18 08:02 Bedside Glucose 104 122 105 White Blood Count 11.7 H Red Blood Count 3.56 L Hemoglobin 10.9 L Hematocrit 33.7 L Mean Corpuscular Volume 94.7 Mean Corpuscular 30.6 Hemoglobin Mean Corpuscular 32.3 Hemoglobin Concent Red Cell Distribution 13.5 Width Platelet Count 407 Mean Platelet Volume 9.9 Immature Granulocytes % 2.500 H Neutrophils % 64.0 Lymphocytes % 14.1 L Monocytes % 7.9 Eosinophils % 9.9 H Basophils % 1.6 Nucleated Red Blood 0.3 H Cells % Immature Granulocytes # 0.290 H Neutrophils # 7.5 Lymphocytes # 1.7 Monocytes # 0.9 Eosinophils # 1.2 H Basophils # 0.2 H Nucleated Red Blood 0.0 Cells # Sodium Level 144 Potassium Level 3.7 Chloride Level 99 Carbon Dioxide Level 28 Anion Gap 17 H Blood Urea Nitrogen 72 H Creatinine 2.43 H Est Glomerular Filtrat 31 L Rate mL/min Glucose Level 107 Calcium Level 9.8 Phosphorus Level 5.0 H Magnesium Level 1.9 Test 09/12/18 12:43 Bedside Glucose 168 Consultation Date/Type/Reason Admit Date/Time Aug 20, 2018 at 21:39 Type of Consult Neurology Reason for Consultation lethargy/weakness Requesting Provider: YUMIKO JC MD Date/Time of Note DATE: 09/12/18 TIME: 13:03 24 HR Interval Summary Free Text/Dictation Continues medsurg monitoring. Worked with PT today. Pt states that he feels a little stronger than before. Exam Vital Signs Vitals Vital Signs Date Temp Pulse Resp B/P (MAP) Pulse Ox O2 O2 Flow FiO2 Time Delivery Rate 09/12/18 98.4 67 16 115/70 99 07:18 (85) 09/12/18 Room Air 02:00 Intake and Output 09/11/18 09/11/18 09/12/18 1515:00 23:00 07:00 IntakeIntake Total 2400 ml 480 ml OutputOutput Total 1800 ml 400 ml BalanceBalance 600 ml 80 ml Exam PE: Gen Appearance: No Apparent Distress HEENT: Normocephalic Cardiovascular: Regular rate Abdomen: Soft Extremities: Dry NE: The patient was awake, alert, and somewhat conversant. Oriented to self, hospital, year; unable to fully recall situation...able to follow simple axial and appendicular commands.. Cranial nerve examination was limited by mental status. Pupils were equal and reactive to light. There was no afferent pupillary defect. Funduscopic examination was limited. Face was grossly symmetric, w/ present corneal and cough reflexes. Tone was normal. Muscle bulk was normal. I did not see fasciculations. The p atient was moving his L forearm spontaneously, able to squeeze his R hand and wiggle his toes on the left; still severely weak, though somewhat improved today.. Coordination and gait testing was limited by weakness.. Arm and leg reflexes were brisk in the right arm and left leg. Phillips's sign was absent. Plantar responses were mute.. TIN GUIDO NP Sep 12, 2018 13:03
--- NOTE | 2018-09-12 13:40 | CONS ---
Date/Time of Note Date/Time of Note DATE: 09/12/18 TIME: 13:39 Assessment/Plan Assessment/Plan Hospital Course 1135 No acute changes, patient is alert, looks comfortable, no fevers overnight Culture of right femoral Saurabh catheter site grew Pseudomonas, VRE and Enterobacter, tip cx + C alb Antimicrobials: Zyvox, Levaquin Diflucan Indwelling: Suh Physical examination: Well-nourished well-developed middle-aged man who is in no distress. Head atraumatic normocephalic sclera nonicteric. Neck is supple chest rise symmetrical breath sounds diminished bases. Heart: S1-S2, tachycardic. Abdomen soft bowel sounds present. Extremities with bilateral edema Assessment: 1. Systemic inflammatory response syndrome with resolving leukocytosis 2. Status post Gram-positive cocci bacteremia 3. Status post acute encephalopathy 4. Status post acute hypoxemic respiratory failure 5. Pulmonary edema 6. Acute renal failure, on hemodialysis 7. Severe anasarca 8. History of polysubstance abuse 9. Muscle weakness Plan: Remains stable, renal f-n continues to improve, continue abx, f/u neuro/renal rec-s Result Diagram: 09/12/1844809/12/189 Results 24hrs Laboratory Tests Test 09/11/18 17:28 09/11/18 21:09 09/12/18 04:49 09/12/18 08:02 Bedside Glucose 104 122 105 White Blood Count 11.7 H Red Blood Count 3.56 L Hemoglobin 10.9 L Hematocrit 33.7 L Mean Corpuscular Volume 94.7 Mean Corpuscular 30.6 Hemoglobin Mean Corpuscular 32.3 Hemoglobin Concent Red Cell Distribution 13.5 Width Platelet Count 407 Mean Platelet Volume 9.9 Immature Granulocytes % 2.500 H Neutrophils % 64.0 Lymphocytes % 14.1 L Monocytes % 7.9 Eosinophils % 9.9 H Basophils % 1.6 Nucleated Red Blood 0.3 H Cells % Immature Granulocytes # 0.290 H Neutrophils # 7.5 Lymphocytes # 1.7 Monocytes # 0.9 Eosinophils # 1.2 H Basophils # 0.2 H Nucleated Red Blood 0.0 Cells # Sodium Level 144 Potassium Level 3.7 Chloride Level 99 Carbon Dioxide Level 28 Anion Gap 17 H Blood Urea Nitrogen 72 H Creatinine 2.43 H Est Glomerular Filtrat 31 L Rate mL/min Glucose Level 107 Calcium Level 9.8 Phosphorus Level 5.0 H Magnesium Level 1.9 Test 09/12/18 12:43 Bedside Glucose 168 Consultation Date/Type/Reason Admit Date/Time Aug 20, 2018 at 21:39 Initial Consult Date 08/21/18 Type of Consult id Requesting Provider: YUMIKO JC MD Exam/Review of Systems Vital Signs Vitals Vital Signs Date Temp Pulse Resp B/P (MAP) Pulse Ox O2 O2 Flow FiO2 Time Delivery Rate 09/12/18 98.4 67 16 115/70 99 07:18 (85) 09/12/18 Room Air 02:00 Intake and Output 09/11/18 09/11/18 09/12/18 1414:59 22:59 06:59 IntakeIntake Total 2400 ml 480 ml OutputOutput Total 1800 ml 400 ml BalanceBalance 600 ml 80 ml Medications Medications Current Medications Albuterol (Ventolin Hfa) 4 puff Q2H RESP THERAPY PRN INH SHORTNESS OF BREATH; Start 08/20/18 at 22:00 Ipratropium [place] (Atrovent Hfa) 4 puff Q2H RESP THERAPY PRN INH SHORTNESS OF BREATH; Start 08/20/18 at 22:00 Acetaminophen (Tylenol Liquid) 650 mg Q6H PRN PO PAIN LEVEL 1-3 OR FEVER Last administered on 09/10/18at 11:22; Admin Dose 650 MG; Start 08/20/18 at 22:00 Miscellaneous Information 1 ea NOTE XX ; Start 08/21/18 at 16:30 Glucose (Glutose) 15 gm Q15M PRN PO DECREASED GLUCOSE; Start 08/21/18 at 16:30 Glucose (Glutose) 22.5 gm Q15M PRN PO DECREASED GLUCOSE; Start 08/21/18 at 16:30 Dextrose (D50w Syringe) 25 ml Q15M PRN IV DECREASED GLUCOSE; Start 08/21/18 at 16:30 Dextrose (D50w Syringe) 50 ml Q15M PRN IV DECREASED GLUCOSE; Start 08/21/18 at 16:30 Glucagon (Glucagen) 1 mg Q15M PRN IM DECREASED GLUCOSE; Start 08/21/18 at 16:30 Glucose (Glutose) 15 gm Q15M PRN BUCCAL DECREASED GLUCOSE; Start 08/21/18 at 16:30 Metoprolol Tartrate (Lopressor) 25 mg BID PO Last administered on 09/12/18 08:28; Admin Dose 25 MG; Start 08/23/18 at 21:00 Epinephrine (Racepinephrine 2.25% (Neb)) 0.25 ml Q3H RESP THERAPY PRN HHN STRIDOR; Start 08/23/18 at 17:00 Ondansetron HCl (Zofran Inj) 4 mg Q6H PRN IV NAUSEA AND/OR VOMITING Last administered on 08/25/18at 21:47; Admin Dose 4 MG; Start 08/25/18 at 21:30 Diagnostic Test (Pha) (Accu-Chek) 1 ea 02 XX ; Start 08/27/18 at 02:00 Heparin Sodium (Porcine) (Heparin (5000 Units/1ml)) 5,000 unit Q8 SC Last administered on 09/01/18at 14:27; Admin Dose 5,000 UNIT; Start 08/29/18 at 14:00; Status Hold Epoetin Isacc (Epogen (Non Esrd/Non Oncology)) 10,000 units MoWeFr@17 SC Last administered on 09/09/18 18:08; Admin Dose 10,000 UNITS; Start 08/29/18 at 17:00 Albumin Human 50 ml @ 100 mls/hr DURING DIALYSIS PRN IV During HD. Last administered on 08/29/18at 13:55; Admin Dose 100 MLS/HR; Start 08/29/18 at 12:30 Aspirin (Aspirin) 81 mg DAILY PO Last administered on 09/03/18at 08:37; Admin Dose 81 MG; Start 08/30/18 at 09:00; Status Hold Calcium Acetate (Phoslo) 1,334 mg WITH MEALS GTB Last administered on 09/12/18 12:44; Admin Dose 1,334 MG; Start 08/31/18 at 12:00 Heparin Sodium (Porcine) (Heparin (1000 Units/ml)) 3,000 unit AFTER DIALYSIS CATHETER Last administered on 09/05/18at 10:12; Admin Dose 3,000 UNIT; Start 09/01/18 at 12:30 Sucralfate (Carafate Susp) 1 gm QID PO Last administered on 09/12/18 12:44; Admin Dose 1 GM; Start 09/01/18 at 16:00 Pantoprazole (Protonix Iv) 40 mg BID@06,18 IV Last administered on 09/12/18 05:39; Admin Dose 40 MG; Start 09/01/18 at 18:00 Insulin Aspart (Novolog Insulin Pen) (Adult SC Insulin - Mild Algorithm)... AC MEALS AND BEDTIME SC Last administered on 09/12/18 12:51; Admin Dose 1 UNIT; Start 09/03/18 at 07:00 Linezolid (Zyvox) 600 mg BID PO Last administered on 09/12/18 08:29; Admin Dose 600 MG; Start 09/08/18 at 12:30 Levofloxacin (Levaquin) 250 mg Q2D@0600 PO Last administered on 09/12/18 06:59; Admin Dose 250 MG; Start 09/08/18 at 15:00 Fluconazole (Diflucan) 100 mg DAILY PO Last administered on 09/12/18 08:28; Admin Dose 100 MG; Start 09/11/18 at 12:00 BRIANNE COYLE NP Sep 12, 2018 13:40
[2018-09-12 14:58] VITALS: BP 117/70; PULSE 76; RESP 16
--- NOTE | 2018-09-12 17:40 | PN ---
Date/Time of Note Date/Time of Note DATE: 09/12/18 TIME: 17:38 Assessment/Plan VTE Prophylaxis Risk score (from Ns)>0 risk: 5 SCD applied (from Ns): Yes Pharmacological prophylaxis: heparin Lines/Catheters IV [facility]from [facility] Saline Lock Urinary Cath still in place: Yes Reason Cath still needed: pres ulcer contaminated by urine Assessment/Plan Assessment/Plan 33 yo man brought in found down with subsequent JULIAN secondary to rhabdomyolysis; positive for alcohol, methamphetamine, cannabis, opioids as well. # Renal failure- Oliguric renal failure with hyperkalemia (after potassium replacement), also presented with severe metabolic acidosis- Likely due to a combination of rhabdo and drug use. CK levels normal now, but patient has been dialysis dependent. - Continue to follow renal recommendations, again Saurabh catheter out and patient appears to be urinating adequately now, follow BMP results to monitor BUN/creatinine levels - Patient may be having adequate renal recovery at this point, per renal documentation, and may not need another catheter insertion, will monitor #Hematochezia- Nurse reported maroon colored stool on 09/01- EGD 09/02 only with mild gastritis and distal esophagitis- MD witnessed maroon colored, grainy stool on 09/03. Rectal exam negative for external hemorrhoids or palpable internal hemorrhoids. Colonoscopy showed solitary rectal ulcer syndrome, bleeding likely from the rectal ulcer. -For now continue PPI BID and carafate, follow-up GI recommendations -Monitor hemoglobin, appears improved after PRBC transfusion given 6 days ago #Encephalopathy and Polyneuropathy- Despite extubation on 08/24, he remains lethargic and weak.- Head CT 08/20 negative- Repeat CT on 08/31 shows some edema of the basal ganglia, confirmed on MRI, this likely represents residual toxic metabolic effect - TSH, ammonia, AM cortisol are normal. CK has normalized-also there is associated with proximal muscle weakness but intact sensation-MRI C spine was most notable for signal changes within the paraspinal musculature of C3-C4 through C5-C6... which is likely a sequelae of rhabdomyolysis. -Monitor, follow-up recommendations from neurology/neurosurgery -Reorient as needed -Continue physical therapy and occupational therapy, and case management is looking for placement options for patient so that he can get continued extensive therapy to help in strength recovery #Bacteremia- Had fever on 08/27 - Blood culture (x1 unfortunately) from that day is growing coag negative staph, a common contaminant. Repeat blood culture negative.- D/Matias right IJ. But his femoral dialysis catheter may also be a source of infection -and now in fact his wound culture from the groin area where the dialysis catheter is, is growing positive Pseudomonas, Enterobacter, and VRE -Continue Levaquin and Zyvox - Follow-up ID recommendations -again Saurabh line was removed yesterday, fo llow-up culture results of the tip # acute respiratory failure- extubated 08/24, was likely secondary to polysubstance overdose resulting in multiorgan dysfunction; patient had subsequent severe metabolic acidosis with inadequate respiratory compensation- now oxygen levels stable - s/p antibiotic treatment for CAP earlier this admission -Monitor, continue oxygen supplementation as needed # Elevated troponin-now appears stable- CV consulted earlier this admission. Likely demand ischemia from drug use. - Will not treat per NSTEMI protocol, monitor, follow-up cardiology recommendations # transaminitis: - May be from shock liver or drug use.- Hep B, Hep C negative. LFTs have trended down. # Rhabdomyolysis - resolved # Coagulopathy- May be due to liver and renal injury as well as drug use- No DIC. Resolved. # polysubstance abuse - Again patient was found to be positive for opioids, m ethamphetamine, marijuana and an elevated blood alcohol level. -Earlier this admission ordered for thiamine 300 mg IM daily times 3 days, further treatment as per the clinical course # DVT and GI prophylaxis: Protonix twice daily Result Diagram: 09/12/18 0449 09/12/18 0449 Results 24hrs Laboratory Tests Test 09/11/18 21:09 09/12/18 04:49 09/12/18 08:02 09/12/18 12:43 Bedside Glucose 122 105 168 White Blood Count 11.7 H Red Blood Count 3.56 L Hemoglobin 10.9 L Hematocrit 33.7 L Mean Corpuscular Volume 94.7 Mean Corpuscular 30.6 Hemoglobin Mean Corpuscular 32.3 Hemoglobin Concent Red Cell Distribution 13.5 Width Platelet Count 407 Mean Platelet Volume 9.9 Immature Granulocytes % 2.500 H Neutrophils % 64.0 Lymphocytes % 14.1 L Monocytes % 7.9 Eosinophils % 9.9 H Basophils % 1.6 Nucleated Red Blood 0.3 H Cells % Immature Granulocytes # 0.290 H Neutrophils # 7.5 Lymphocytes # 1.7 Monocytes # 0.9 Eosinophils # 1.2 H Basophils # 0.2 H Nucleated Red Blood 0.0 Cells # Sodium Level 144 Potassium Level 3.7 Chloride Level 99 Carbon Dioxide Level 28 Anion Gap 17 H Blood Urea Nitrogen 72 H Creatinine 2.43 H Est Glomerular Filtrat 31 L Rate mL/min Glucose Level 107 Calcium Level 9.8 Phosphorus Level 5.0 H Magnesium Level 1.9 Subjective 24 Hr Interval Summary Free Text/Dictation No acute overnight events. Father Kwame at bedside today. Patient still with weak voice. Mentation is slightly improved from what I recall. Exam/Review of Systems Vital Signs Vitals Vital Signs Date Temp Pulse Resp B/P (MAP) Pulse Ox O2 O2 Flow FiO2 Time Delivery Rate 09/12/18 98.4 76 16 117/70 98 14:58 (86) 09/12/18 Room Air 02:00 Intake and Output 09/11/18 09/11/18 09/12/18 1515:00 23:00 07:00 IntakeIntake Total 2400 ml 480 ml OutputOutput Total 1800 ml 400 ml BalanceBalance 600 ml 80 ml Exam Gen: Lying in bed, a bit more alert, but still overall lethargic Eyes: Pupils equal round reactive to light, extraocular muscles intact HEENT: PERRL, moist mucous membranes, Card: Regular rate and rhythm no murmurs Pulm: CTA bilaterally, no crackles. Abd: Soft, nondistended. Ext: No cyanosis/clubbing/edema Neuro: A&O to name, location, year/month/day. 3/5 strength bilateral upper extremities. Medications Medications Current Medications Albuterol (Ventolin Hfa) 4 puff Q2H RESP THERAPY PRN INH SHORTNESS OF BREATH; Start 08/20/18 at 22:00 Ipratropium [place] (Atrovent Hfa) 4 puff Q2H RESP THERAPY PRN INH SHORTNESS OF BREATH; Start 08/20/18 at 22:00 Acetaminophen (Tylenol Liquid) 650 mg Q6H PRN PO PAIN LEVEL 1-3 OR FEVER Last administered on 09/10/18at 11:22; Admin Dose 650 MG; Start 08/20/18 at 22:00 Miscellaneous Information 1 ea NOTE XX ; Start 08/21/18 at 16:30 Glucose (Glutose) 15 gm Q15M PRN PO DECREASED GLUCOSE; Start 08/21/18 at 16:30 Glucose (Glutose) 22.5 gm Q15M PRN PO DECREASED GLUCOSE; Start 08/21/18 at 16:30 Dextrose (D50w Syringe) 25 ml Q15M PRN IV DECREASED GLUCOSE; Start 08/21/18 at 16:30 Dextrose (D50w Syringe) 50 ml Q15M PRN IV DECREASED GLUCOSE; Start 08/21/18 at 16:30 Glucagon (Glucagen) 1 mg Q15M PRN IM DECREASED GLUCOSE; Start 08/21/18 at 16:30 Glucose (Glutose) 15 gm Q15M PRN BUCCAL DECREASED GLUCOSE; Start 08/21/18 at 16:30 Metoprolol Tartrate (Lopressor) 25 mg BID PO Last administered on 09/12/18at 08:28; Admin Dose 25 MG; Start 08/23/18 at 21:00 Epinephrine (Racepinephrine 2.25% (Neb)) 0.25 ml Q3H RESP THERAPY PRN HHN STR IDOR; Start 08/23/18 at 17:00 Ondansetron HCl (Zofran Inj) 4 mg Q6H PRN IV NAUSEA AND/OR VOMITING Last administered on 08/25/18at 21:47; Admin Dose 4 MG; Start 08/25/18 at 21:30 Diagnostic Test (Pha) (Accu-Chek) 1 ea 02 XX ; Start 08/27/18 at 02:00 Heparin Sodium (Porcine) (Heparin (5000 Units/1ml)) 5,000 unit Q8 SC Last administered on 09/01/18at 14:27; Admin Dose 5,000 UNIT; Start 08/29/18 at 14:00; Status Hold Epoetin Isacc (Epogen (Non Esrd/Non Oncology)) 10,000 units MoWeFr@17 SC Last administered on 09/09/18 18:08; Admin Dose 10,000 UNITS; Start 08/29/18 at 17:00 Albumin Human 50 ml @ 100 mls/hr DURING DIALYSIS PRN IV During HD. Last administered on 08/29/18at 13:55; Admin Dose 100 MLS/HR; Start 08/29/18 at 12:30 Aspirin (Aspirin) 81 mg DAILY PO Last administered on 09/03/18at 08:37; Admin Dose 81 MG; Start 08/30/18 at 09:00; Status Hold Calcium Acetate (Phoslo) 1,334 mg WITH MEALS GTB Last administered on 09/12/18 12:44; Admin Dose 1,334 MG; Start 08/31/18 at 12:00 Heparin Sodium (Porcine) (Heparin (1000 Units/ml)) 3,000 unit AFTER DIALYSIS CATHETER Last administered on 09/05/18at 10:12; Admin Dose 3,000 UNIT; Start 09/01/18 at 12:30 Sucralfate (Carafate Susp) 1 gm QID PO Last administered on 09/12/18 12:44; Admin Dose 1 GM; Start 09/01/18 at 16:00 Pantoprazole (Protonix Iv) 40 mg BID@18 IV Last administered on 09/12/18 05:39; Admin Dose 40 MG; Start 09/01/18 at 18:00 Insulin Aspart (Novolog Insulin Pen) (Adult SC Insulin - Mild Algorithm)... AC MEALS AND BEDTIME SC Last administered on 09/12/18 12:51; Admin Dose 1 UNIT; Start 09/03/18 at 07:00 Linezolid (Zyvox) 600 mg BID PO Last administered on 09/12/18 08:29; Admin Dose 600 MG; Start 09/08/18 at 12:30 Levofloxacin (Levaquin) 250 mg Q2D@0600 PO Last administered on 09/12/18 06:59; Admin Dose 250 MG; Start 09/08/18 at 15:00 Fluconazole (Diflucan) 100 mg DAILY PO Last administered on 09/12/18 08:28; Admin Dose 100 MG; Start 09/11/18 at 12:00 YUMIKO JC MD Sep 12, 2018 17:40
[2018-09-12] MEDS: EPOETIN 10000 UNITS/ML (NON ESRD/NON ONCOLOGY) SC SCH (17:50)
[2018-09-12 20:00] VITALS: BP 116/72; PULSE 81; RESP 18
[2018-09-13 02:00] VITALS: BP 121/70; PULSE 78; RESP 18
[2018-09-13] MEDS: ACCU-CHEK XX SCH (02:00)
[2018-09-13] MEDS: PANTOPRAZOLE 40 MG INJ IV SCH ×2 (05:25→17:37)
[2018-09-13 07:52] VITALS: BP 117/72; PULSE 70; RESP 18
[2018-09-13] MEDS: INSULIN ASPART [NOVOLOG] 3 ML PEN SC SCH ×4 (08:06→20:32)
[2018-09-13] MEDS: SUCRALFATE (100 MG/ML) 10ML CUP PO SCH ×4 (08:33→20:27)
[2018-09-13] MEDS: FLUCONAZOLE 100 MG TAB PO SCH (08:33)
[2018-09-13] MEDS: ZYVOX 600 MG TAB PO SCH ×2 (08:33→20:27)
[2018-09-13] MEDS: METOPROLOL 25 MG TAB PO SCH ×2 (08:34→20:27)
--- NOTE | 2018-09-13 08:35 | CONS ---
Date/Time of Note Date/Time of Note DATE: 09/13/18 TIME: 08:33 Assessment/Plan Assessment/Plan Assessment/Plan 1. Renal fx continues to improve, given marked diuresis will start hypotonic fluids 2. Phos binder dc'd 3. Wound infection, abx per id 4. Neuro status sl better Result Diagram: 09/13/18 0548 09/13/18 0548 Results 24hrs Laboratory Tests Test 09/12/18 12:43 09/12/18 17:47 09/12/18 21:20 09/13/18 05:48 Bedside Glucose 168 112 106 White Blood Count 11.0 H Red Blood Count 3.51 L Hemoglobin 10.8 L Hematocrit 32.9 L Mean Corpuscular Volume 93.7 Mean Corpuscular 30.8 Hemoglobin Mean Corpuscular 32.8 Hemoglobin Concent Red Cell Distribution 13.9 Width Platelet Count 415 Mean Platelet Volume 9.7 Immature Granulocytes % 1.500 H Neutrophils % 65.1 Lymphocytes % 14.6 L Monocytes % 7.8 Eosinophils % 9.2 H Basophils % 1.8 Nucleated Red Blood 0.0 Cells % Immature Granulocytes # 0.160 H Neutrophils # 7.2 Lymphocytes # 1.6 Monocytes # 0.9 Eosinophils # 1.0 H Basophils # 0.2 H Nucleated Red Blood 0.0 Cells # Sodium Level 143 Potassium Level 3.8 Chloride Level 100 Carbon Dioxide Level 27 Anion Gap 16 H Blood Urea Nitrogen 63 H Creatinine 2.05 H Est Glomerular Filtrat 38 L Rate mL/min Glucose Level 107 Calcium Level 9.8 Phosphorus Level 4.6 Magnesium Level 1.8 Total Bilirubin 0.3 Direct Bilirubin 0.00 Indirect Bilirubin 0.3 Aspartate Amino 40 Transf (AST/SGOT) Alanine 66 Aminotransferase (ALT/SG PT) Alkaline Phosphatase 94 Total Protein 8.1 Albumin 4.0 Globulin 4.10 H Albumin/Globulin Ratio 0.97 Test 09/13/18 07:59 Bedside Glucose 97 Consultation Date/Type/Reason Admit Date/Time Aug 20, 2018 at 21:39 Initial Consult Date 08/21/18 Requesting Provider: YUMIKO JC MD 24 HR Interval Summary Constitutional: other (Alert and responds to name) Detailed Summary Respiratory: No shortness of breath Cardiovascular: No chest pain Gastrointestinal: No pain Genitourinary: other (foleyh in place) Exam/Review of Systems Vital Signs Vitals Vital Signs Date Temp Pulse Resp B/P (MAP) Pulse Ox O2 O2 Flow FiO2 Time Delivery Rate 09/13/18 98.2 70 18 117/72 98 Room Air 07:52 (87) Intake and Output 09/12/18 09/12/18 09/13/18 1515:00 23:00 07:00 IntakeIntake Total 1080 ml 800 ml OutputOutput Total 2100 ml 2200 ml 2200 ml BalanceBalance -1020 ml -1400 ml -2200 ml Exam Neck: No jvd Respiratory: clear to auscultation Cardiovascular: regular rate and rhythm Gastrointestinal: soft Extremities: No edema Neurological: other (can move upper extrem more but can move left foot) Medications Medications Current Medications Albuterol (Ventolin Hfa) 4 puff Q2H RESP THERAPY PRN INH SHORTNESS OF BREATH; Start 08/20/18 at 22:00 Ipratropium [place] (Atrovent Hfa) 4 puff Q2H RESP THERAPY PRN INH SHORTNESS OF BREATH; Start 08/20/18 at 22:00 Acetaminophen (Tylenol Liquid) 650 mg Q6H PRN PO PAIN LEVEL 1-3 OR FEVER Last administered on 09/10/18at 11:22; Admin Dose 650 MG; Start 08/20/18 at 22:00 Miscellaneous Information 1 ea NOTE XX ; Start 08/21/18 at 16:30 Glucose (Glutose) 15 gm Q15M PRN PO DECREASED GLUCOSE; Start 08/21/18 at 16:30 Glucose (Glutose) 22.5 gm Q15M PRN PO DECREASED GLUCOSE; Start 08/21/18 at 16:30 Dextrose (D50w Syringe) 25 ml Q15M PRN IV DECREASED GLUCOSE; Start 08/21/18 at 16:30 Dextrose (D50w Syringe) 50 ml Q15M PRN IV DECREASED GLUCOSE; Start 08/21/18 at 16:30 Glucagon (Glucagen) 1 mg Q15M PRN IM DECREASED GLUCOSE; Start 08/21/18 at 16:30 Glucose (Glutose) 15 gm Q15M PRN BUCCAL DECREASED GLUCOSE; Start 08/21/18 at 16:30 Metoprolol Tartrate (Lopressor) 25 mg BID PO Last administered on 09/12/18at 21:18; Admin Dose 25 MG; Start 08/23/18 at 21:00 Epinephrine (Racepinephrine 2.25% (Neb)) 0.25 ml Q3H RESP THERAPY PRN HHN STRIDOR; Start 08/23/18 at 17:00 Ondansetron HCl (Zofran Inj) 4 mg Q6H PRN IV NAUSEA AND/OR VOMITING Last administered on 08/25/18at 21:47; Admin Dose 4 MG; Start 08/25/18 at 21:30 Diagnostic Test (Pha) (Accu-Chek) 1 ea 02 XX ; Start 08/27/18 at 02:00 Heparin Sodium (Porcine) (Heparin (5000 Units/1ml)) 5,000 unit Q8 SC Last administered on 09/01/18at 14:27; Admin Dose 5,000 UNIT; Start 08/29/18 at 14:00; Status Hold Epoetin Isacc (Epogen (Non Esrd/Non Oncology)) 10,000 units MoWeFr@17 SC Last administered on 09/12/18 17:50; Admin Dose 10,000 UNITS; Start 08/29/18 at 17:00 Albumin Human 50 ml @ 100 mls/hr DURING DIALYSIS PRN IV During HD. Last a dministered on 08/29/18at 13:55; Admin Dose 100 MLS/HR; Start 08/29/18 at 12:30 Aspirin (Aspirin) 81 mg DAILY PO Last administered on 09/03/18at 08:37; Admin Dose 81 MG; Start 08/30/18 at 09:00; Status Hold Calcium Acetate (Phoslo) 1,334 mg WITH MEALS GTB Last administered on 09/12/18 17:48; Admin Dose 1,334 MG; Start 08/31/18 at 12:00 Heparin Sodium (Porcine) (Heparin (1000 Units/ml)) 3,000 unit AFTER DIALYSIS CATHETER Last administered on 09/05/18at 10:12; Admin Dose 3,000 UNIT; Start 09/01/18 at 12:30 Sucralfate (Carafate Susp) 1 gm QID PO Last administered on 09/12/18 21:17; Adm in Dose 1 GM; Start 09/01/18 at 16:00 Pantoprazole (Protonix Iv) 40 mg BID@06,18 IV Last administered on 09/13/18 05:25; Admin Dose 40 MG; Start 09/01/18 at 18:00 Insulin Aspart (Novolog Insulin Pen) (Adult SC Insulin - Mild Algorithm)... AC MEALS AND BEDTIME SC Last administered on 09/12/18 12:51; Admin Dose 1 UNIT; Start 09/03/18 at 07:00 Linezolid (Zyvox) 600 mg BID PO Last administered on 09/12/18 21:17; Admin Dose 600 MG; Start 09/08/18 at 12:30 Levofloxacin (Levaquin) 250 mg Q2D@0600 PO Last administered on 09/12/18 06:59; Admin Dose 250 MG; Start 09/08/18 at 15:00 Fluconazole (Diflucan) 100 mg DAILY PO Last administered on 09/12/18 08:28; Admin Dose 100 MG; Start 09/11/18 at 12:00 MAXIMO TAY MD Sep 13, 2018 08:35
[2018-09-13] MEDS: SOD CHLORIDE 0.45% 1,000 ML IV SCH ×2 (08:56→23:57)
[2018-09-13] MEDS ORDERED: MAGNESIUM SULFATE 2 GM/50 ML 50 ML IVPB ONE (09:30)
--- NOTE | 2018-09-13 13:40 | CONS ---
Date/Time of Note Date/Time of Note DATE: 09/13/18 TIME: 13:40 Assessment/Plan Assessment/Plan Hospital Course No acute events patient is awake and looks comfortable no fevers overnight WBC trending down Culture of right femoral Saurabh catheter site grew Pseudomonas, VRE and Enterobacter, tip cx + C alb Antimicrobials: Zyvox, Levaquin Diflucan Indwelling: Suh Physical examination: Well-nourished well-developed middle-aged man who is in no distress. Head atraumatic normocephalic sclera nonicteric. Neck is supple chest rise symmetrical breath sounds diminished bases. Heart: S1-S2, tachycardic. Abdomen soft bowel sounds present. Extremities with bilateral edema Assessment: 1. Systemic inflammatory response syndrome with resolving leukocytosis 2. Status post Gram-positive cocci bacteremia 3. Status post acute encephalopathy 4. Status post acute hypoxemic respiratory failure 5. Pulmonary edema 6. Acute renal failure, on hemodialysis 7. Severe anasarca 8. History of polysubstance abuse 9. Muscle weakness Plan: Remains stable, overall improving, continue abx for couple more days, f/u neuro/renal rec-s Result Diagram: 09/13/18 0548 09/13/18 0548 Results 24hrs Laboratory Tests Test 09/12/18 17:47 09/12/18 21:20 09/13/18 05:48 09/13/18 07:59 Bedside Glucose 112 106 97 White Blood Count 11.0 H Red Blood Count 3.51 L Hemoglobin 10.8 L Hematocrit 32.9 L Mean Corpuscular Volume 93.7 Mean Corpuscular 30.8 Hemoglobin Mean Corpuscular 32.8 Hemoglobin Concent Red Cell Distribution 13.9 Width Platelet Count 415 Mean Platelet Volume 9.7 Immature Granulocytes % 1.500 H Neutrophils % 65.1 Lymphocytes % 14.6 L Monocytes % 7.8 Eosinophils % 9.2 H Basophils % 1.8 Nucleated Red Blood 0.0 Cells % Immature Granulocytes # 0.160 H Neutrophils # 7.2 Lymphocytes # 1.6 Monocytes # 0.9 Eosinophils # 1.0 H Basophils # 0.2 H Nucleated Red Blood 0.0 Cells # Sodium Level 143 Potassium Level 3.8 Chloride Level 100 Carbon Dioxide Level 27 Anion Gap 16 H Blood Urea Nitrogen 63 H Creatinine 2.05 H Est Glomerular Filtrat 38 L Rate mL/min Glucose Level 107 Calcium Level 9.8 Phosphorus Level 4.6 Magnesium Level 1.8 Total Bilirubin 0.3 Direct Bilirubin 0.00 Indirect Bilirubin 0.3 Aspartate Amino 40 Transf (AST/SGOT) Alanine 66 Aminotransferase (ALT/SG PT) Alkaline Phosphatase 94 Total Protein 8.1 Albumin 4.0 Globulin 4.10 H Albumin/Globulin Ratio 0.97 Test 09/13/18 13:28 Bedside Glucose 121 Consultation Date/Type/Reason Admit Date/Time Aug 20, 2018 at 21:39 Initial Consult Date 08/21/18 Type of Consult id Requesting Provider: YUMIKO JC MD Exam/Review of Systems Vital Signs Vitals Vital Signs Date Temp Pulse Resp B/P (MAP) Pulse Ox O2 O2 Flow FiO2 Time Delivery Rate 09/13/18 98.2 70 18 117/72 98 Room Air 07:52 (87) Intake and Output 09/12/18 09/12/18 09/13/18 1515:00 23:00 07:00 IntakeIntake Total 1080 ml 800 ml OutputOutput Total 2100 ml 2200 ml 2200 ml BalanceBalance -1020 ml -1400 ml -2200 ml Medications Medications Current Medications Albuterol (Ventolin Hfa) 4 puff Q2H RESP THERAPY PRN INH SHORTNESS OF BREATH; Start 08/20/18 at 22:00 Ipratropium [place] (Atrovent Hfa) 4 puff Q2H RESP THERAPY PRN INH SHORTNESS OF BREATH; Start 08/20/18 at 22:00 Acetaminophen (Tylenol Liquid) 650 mg Q6H PRN PO PAIN LEVEL 1-3 OR FEVER Last administered on 09/10/18at 11:22; Admin Dose 650 MG; Start 08/20/18 at 22:00 Miscellaneous Information 1 ea NOTE XX ; Start 08/21/18 at 16:30 Glucose (Glutose) 15 gm Q15M PRN PO DECREASED GLUCOSE; Start 08/21/18 at 16:30 Glucose (Glutose) 22.5 gm Q15M PRN PO DECREASED GLUCOSE; Start 08/21/18 at 16:30 Dextrose (D50w Syringe) 25 ml Q15M PRN IV DECREASED GLUCOSE; Start 08/21/18 at 16:30 Dextrose (D50w Syringe) 50 ml Q15M PRN IV DECREASED GLUCOSE; Start 08/21/18 at 16:30 Glucagon (Glucagen) 1 mg Q15M PRN IM DECREASED GLUCOSE; Start 08/21/18 at 16:30 Glucose (Glutose) 15 gm Q15M PRN BUCCAL DECREASED GLUCOSE; Start 08/21/18 at 16:30 Metoprolol Tartrate (Lopressor) 25 mg BID PO Last administered on 09/13/18 08:34; Admin Dose 25 MG; Start 08/23/18 at 21:00 Epinephrine (Racepinephrine 2.25% (Neb)) 0.25 ml Q3H RESP THERAPY PRN HHN STRIDOR; Start 08/23/18 at 17:00 Ondansetron HCl (Zofran Inj) 4 mg Q6H PRN IV NAUSEA AND/OR VOMITING Last administered on 08/25/18at 21:47; Admin Dose 4 MG; Start 08/25/18 at 21:30 Diagnostic Test (Pha) (Accu-Chek) 1 ea 02 XX ; Start 08/27/18 at 02:00 Heparin Sodium (Porcine) (Heparin (5000 Units/1ml)) 5,000 unit Q8 SC Last administered on 09/01/18at 14:27; Admin Dose 5,000 UNIT; Start 08/29/18 at 14:00; Status Hold Epoetin Isacc (Epogen (Non Esrd/Non Oncology)) 10,000 units MoWeFr@17 SC Last administered on 09/12/18 17:50; Admin Dose 10,000 UNITS; Start 08/29/18 at 17:00 Albumin Human 50 ml @ 100 mls/hr DURING DIALYSIS PRN IV During HD. Last a dministered on 08/29/18at 13:55; Admin Dose 100 MLS/HR; Start 08/29/18 at 12:30 Aspirin (Aspirin) 81 mg DAILY PO Last administered on 09/03/18 08:37; Admin Dose 81 MG; Start 08/30/18 at 09:00; Status Hold Heparin Sodium (Porcine) (Heparin (1000 Units/ml)) 3,000 unit AFTER DIALYSIS CATHETER Last administered on 09/05/18at 10:12; Admin Dose 3,000 UNIT; Start 09/01/18 at 12:30 Sucralfate (Carafate Susp) 1 gm QID PO Last administered on 09/13/18 13:33; Admin Dose 1 GM; Start 09/01/18 at 16:00 Pantoprazole (Protonix Iv) 40 mg BID@06,18 IV Last administered on 09/13/18 05:25; Admin Dose 40 MG; Start 09/01/18 at 18:00 Insulin Aspart (Novolog Insulin Pen) (Adult SC Insulin - Mild Algorithm)... AC MEALS AND BEDTIME SC Last administered on 09/12/18 12:51; Admin Dose 1 UNIT; Start 09/03/18 at 07:00 Linezolid (Zyvox) 600 mg BID PO Last administered on 09/13/18 08:33; Admin Dose 600 MG; Start 09/08/18 at 12:30 Levofloxacin (Levaquin) 250 mg Q2D@0600 PO Last administered on 09/12/18 06:59; Admin Dose 250 MG; Start 09/08/18 at 15:00 Fluconazole (Diflucan) 100 mg DAILY PO Last administered on 09/13/18 08:33; Admin Dose 100 MG; Start 09/11/18 at 12:00 Sodium Chloride 1,000 ml @ 80 mls/hr [id number] IV Last administered on 09/13/18 08:56; Admin Dose 80 MLS/HR; Start 09/13/18 at 09:00 BRIANNE COYLE NP Sep 13, 2018 13:40
[2018-09-13 13:56] VITALS: BP 117/71; PULSE 77; RESP 18
--- NOTE | 2018-09-13 16:04 | PN ---
Date/Time of Note Date/Time of Note DATE: 09/13/18 TIME: 16:01 Assessment/Plan VTE Prophylaxis Risk score (from Nsg)>0 risk: 3 SCD applied (from Nsg): Yes Pharmacological prophylaxis: heparin Lines/Catheters IV Catheter Type (from Nrsg): Peripheral IV Urinary Cath still in place: Yes Reason Cath still needed: other (indicate) (immobile) Assessment/Plan Assessment/Plan 33 yo man brought in found down with subsequent JULIAN secondary to rhabdomyolysis; positive for alcohol, methamphetamine, cannabis, opioids as well. # Renal failure- Oliguric renal failure with hyperkalemia (after potassium replacement), also presented with severe metabolic acidosis- Likely due to a combination of rhabdo and drug use. CK levels normal now, but patient has been dialysis dependent. - Continue to follow renal recommendations, again Saurabh catheter out and patient appears to be urinating adequately now, follow BMP results to monitor BUN/creatinine levels - Patient may be having adequate renal recovery at this point, per renal documentation, and may not need another catheter insertion, will monitor #Hematochezia- Nurse reported maroon colored stool on 09/01- EGD 09/02 only with mild gastritis and distal esophagitis- MD witnessed maroon colored, grainy stool on 09/03. Rectal exam negative for external hemorrhoids or palpable internal hemorrhoids. Colonoscopy showed solitary rectal ulcer syndrome, bleeding likely from the rectal ulcer. -For now continue PPI BID and carafate #Encephalopathy and Polyneuropathy- Despite extubation on 08/24, he remains lethargic and weak.- Head CT 08/20 negative- Repeat CT on 08/31 shows some edema of the basal ganglia, confirmed on MRI, this likely represents residual toxic metabolic effect - TSH, ammonia, AM cortisol are normal. CK has normalized-also there is associated with proximal muscle weakness but intact sensation-MRI C spine was most notable for signal changes within the paraspinal musculature of C3-C4 through C5-C6... which is likely a sequelae of rhabdomyolysis. -Monitor, follow-up recommendations from neurology/neurosurgery -Reorient as needed -Continue physical therapy and occupational therapy, and case management is looking for placement options for patient so that he can get continued extensive therapy to help in strength recovery #Bacteremia- Had fever on 08/27 - Blood culture (x1 unfortunately) from that day is growing coag negative staph, a common contaminant. Repeat blood culture negative.- D/Matias right IJ. But his femoral dialysis catheter may also be a source of infection -and now in fact his wound culture from the groin area where the dialysis catheter is, is growing positive Pseudomonas, Enterobacter, and VRE -Continue Levaquin and Zyvox - Follow-up ID recommendations -again Saurabh line was removed yesterday, follow-up culture results of the tip # acute respiratory failure- extubated 08/24, was likely secondary to polysu bstance overdose resulting in multiorgan dysfunction; patient had subsequent severe metabolic acidosis with inadequate respiratory compensation-now oxygen levels stable - s/p antibiotic treatment for CAP earlier this admission -Monitor, continue oxygen supplementation as needed # Elevated troponin-now appears stable- CV consulted earlier this admission. Likely demand ischemia from drug use. - Will not treat per NSTEMI protocol, monitor, follow-up cardiology recommendations # transaminitis: - May be from shock liver or drug use.- Hep B, Hep C negative. LFTs have trended down. # Rhabdomyolysis - resolved # Coagulopathy- May be due to liver and renal injury as well as drug use- No DIC. Resolved. # polysubstance abuse - Again patient was found to be positive for opioids, methamphetamine, marijuana and an elevated blood alcohol level. -Earlier this admission ordered for thiamine 300 mg IM daily times 3 days, further treatment as per the clinical course # DVT and GI prophylaxis: Protonix twice daily Result Diagram: 09/13/18 0548 09/13/18 0548 Results 24hrs Laboratory Tests Test 09/12/18 17:47 09/12/18 21:20 09/13/18 05:48 09/13/18 07:59 Bedside Glucose 112 106 97 White Blood Count 11.0 H Red Blood Count 3.51 L Hemoglobin 10.8 L Hematocrit 32.9 L Mean Corpuscular Volume 93.7 Mean Corpuscular 30.8 Hemoglobin Mean Corpuscular 32.8 Hemoglobin Concent Red Cell Distribution 13.9 Width Platelet Count 415 Mean Platelet Volume 9.7 Immature Granulocytes % 1.500 H Neutrophils % 65.1 Lymphocytes % 14.6 L Monocytes % 7.8 Eosinophils % 9.2 H Basophils % 1.8 Nucleated Red Blood 0.0 Cells % Immature Granulocytes # 0.160 H Neutrophils # 7.2 Lymphocytes # 1.6 Monocytes # 0.9 Eosinophils # 1.0 H Basophils # 0.2 H Nucleated Red Blood 0.0 Cells # Sodium Level 143 Potassium Level 3.8 Chloride Level 100 Carbon Dioxide Level 27 Anion Gap 16 H Blood Urea Nitrogen 63 H Creatinine 2.05 H Est Glomerular Filtrat 38 L Rate mL/min Glucose Level 107 Calcium Level 9.8 Phosphorus Level 4.6 Magnesium Level 1.8 Total Bilirubin 0.3 Direct Bilirubin 0.00 Indirect Bilirubin 0.3 Aspartate Amino 40 Transf (AST/SGOT) Alanine 66 Aminotransferase (ALT/SG PT) Alkaline Phosphatase 94 Total Protein 8.1 Albumin 4.0 Globulin 4.10 H Albumin/Globulin Ratio 0.97 Test 09/13/18 13:28 Bedside Glucose 121 Subjective 24 Hr Interval Summary Free Text/Dictation No acute overnight events. Patient awake and alert today. Exam/Review of Systems Vital Signs Vitals Vital Signs Date Temp Pulse Resp B/P (MAP) Pulse Ox O2 O2 Flow FiO2 Time Delivery Rate 09/13/18 97.4 77 18 117/71 98 Room Air 13:56 (86) Intake and Output 09/12/18 09/12/18 09/13/18 1515:00 23:00 07:00 IntakeIntake Total 1080 ml 800 ml OutputOutput Total 2100 ml 2200 ml 2200 ml BalanceBalance -1020 ml -1400 ml -2200 ml Exam Gen: Lying in bed, a bit more alert, but still overall lethargic Eyes: Pupils equal round reactive to light, extraocular muscles intact HEENT: PERRL, moist mucous membranes, Card: Regular rate and rhythm no murmurs Pulm: CTA bilaterally, no crackles. Abd: Soft, nondistended. Ext: No cyanosis/clubbing/edema Medications Medications Current Medications Albuterol (Ventolin Hfa) 4 puff Q2H RESP THERAPY PRN INH SHORTNESS OF BREATH; Start 08/20/18 at 22:00 Ipratropium [place] (Atrovent Hfa) 4 puff Q2H RESP THERAPY PRN INH SHORTNESS OF BREATH; Start 08/20/18 at 22:00 Acetaminophen (Tylenol Liquid) 650 mg Q6H PRN PO PAIN LEVEL 1-3 OR FEVER Last administered on 09/10/18at 11:22; Admin Dose 650 MG; Start 08/20/18 at 22:00 Miscellaneous Information 1 ea NOTE XX ; Start 08/21/18 at 16:30 Glucose (Glutose) 15 gm Q15M PRN PO DECREASED GLUCOSE; Start 08/21/18 at 16:30 Glucose (Glutose) 22.5 gm Q15M PRN PO DECREASED GLUCOSE; Start 08/21/18 at 16:30 Dextrose (D50w Syringe) 25 ml Q15M PRN IV DECREASED GLUCOSE; Start 08/21/18 at 16:30 Dextrose (D50w Syringe) 50 ml Q15M PRN IV DECREASED GLUCOSE; Start 08/21/18 at 16:30 Glucagon (Glucagen) 1 mg Q15M PRN IM DECREASED GLUCOSE; Start 08/21/18 at 16:30 Glucose (Glutose) 15 gm Q15M PRN BUCCAL DECREASED GLUCOSE; Start 08/21/18 at 16:30 Metoprolol Tartrate (Lopressor) 25 mg BID PO Last administered on 09/13/18at 08:34; Admin Dose 25 MG; Start 08/23/18 at 21:00 Epinephrine (Racepinephrine 2.25% (Neb)) 0.25 ml Q3H RESP THERAPY PRN HHN STRIDOR; Start 08/23/18 at 17:00 Ondansetron HCl (Zofran Inj) 4 mg Q6H PRN IV NAUSEA AND/OR VOMITING Last administered on 08/25/18at 21:47; Admin Dose 4 MG; Start 08/25/18 at 21:30 Diagnostic Test (Pha) (Accu-Chek) 1 ea 02 XX ; Start 08/27/18 at 02:00 Heparin Sodium (Porcine) (Heparin (5000 Units/1ml)) 5,000 unit Q8 SC Last administered on 09/01/18at 14:27; Admin Dose 5,000 UNIT; Start 08/29/18 at 14:00; Status Hold Epoetin Isacc (Epogen (Non Esrd/Non Oncology)) 10,000 units MoWeFr@17 SC Last administered on 09/12/18at 17:50; Admin Dose 10,000 UNITS; Start 08/29/18 at 17:00 Albumin Human 50 ml @ 100 mls/hr DURING DIALYSIS PRN IV During HD. Last administered on 08/29/18at 13:55; Admin Dose 100 MLS/HR; Start 08/29/18 at 12:30 Aspirin (Aspirin) 81 mg DAILY PO Last administered on 09/03/18at 08:37; Admin Dose 81 MG; Start 08/30/18 at 09:00; Status Hold Heparin Sodium (Porcine) (Heparin (1000 Units/ml)) 3,000 unit AFTER DIALYSIS CATHETER Last administered on 09/05/18at 10:12; Admin Dose 3,000 UNIT; Start 09/01/18 at 12:30 Sucralfate (Carafate Susp) 1 gm QID PO Last administered on 09/13/18 13:33; Admin Dose 1 GM; Start 09/01/18 at 16:00 Pantoprazole (Protonix Iv) 40 mg BID@06,18 IV Last administered on 09/13/18 05:25; Admin Dose 40 MG; Start 09/01/18 at 18:00 Insulin Aspart (Novolog Insulin Pen) (Adult SC Insulin - Mild Algorithm)... AC MEALS AND BEDTIME SC Last administered on 09/12/18 12:51; Admin Dose 1 UNIT; Start 09/03/18 at 07:00 Linezolid (Zyvox) 600 mg BID PO Last administered on 09/13/18 08:33; Admin Dose 600 MG; Start 09/08/18 at 12:30 Levofloxacin (Levaquin) 250 mg Q2D@0600 PO Last administered on 09/12/18 06:59; Admin Dose 250 MG; Start 09/08/18 at 15:00 Fluconazole (Diflucan) 100 mg DAILY PO Last administered on 09/13/18 08:33; Admin Dose 100 MG; Start 09/11/18 at 12:00 Sodium Chloride 1,000 ml @ 80 mls/hr [id number] IV Last administered on 09/13/18 08:56; Admin Dose 80 MLS/HR; Start 09/13/18 at 09:00 YUMIKO JC MD Sep 13, 2018 16:04
--- NOTE | 2018-09-13 16:26 | CONS ---
Assessment/Plan Assessment/Plan Hospital Course A: 33 yo M with uncertain PMH who presents for evaluation of altered mental status..for which neurology is consulted.. UDS + for amphetamines, opioids, EtOH, cannabis He was reported to be severely hypoglycemic in the field. JULIAN+ CK++++ Clinically consistent with an acute and multifactorial toxic-metabolic encephalopathy. Stroke is unlikely. Seizure is unlikely. CTH (08/20) was unrevealing. Repeat CTH was most notable for bilateral globus pallidus edema MRI is notable for sequelae of a toxic-metabolic insult.. As an aside, he has profound 4-limb weakness on exam, which does not appear to be improving w/ his mental status.. MRI C spine was most notable for signal changes within the paraspinal m usculature of C3-C4 through C5-C6... which is a likely sequelae of rhabdomyolysis. P: Ok to defer additional neuroimaging for now. Cont medical management per primary Reorient as necessary Limit sedating medications where possible PT/OT as tolerated Will follow clinically, to make further neurologic recommendations as necessary Result Diagram: 09/13/18 0548 09/13/18 0548 Results 24hrs Laboratory Tests Test 09/12/18 17:47 09/12/18 21:20 09/13/18 05:48 09/13/18 07:59 Bedside Glucose 112 106 97 White Blood Count 11.0 H Red Blood Count 3.51 L Hemoglobin 10.8 L Hematocrit 32.9 L Mean Corpuscular Volume 93.7 Mean Corpuscular 30.8 Hemoglobin Mean Corpuscular 32.8 Hemoglobin Concent Red Cell Distribution 13.9 Width Platelet Count 415 Mean Platelet Volume 9.7 Immature Granulocytes % 1.500 H Neutrophils % 65.1 Lymphocytes % 14.6 L Monocytes % 7.8 Eosinophils % 9.2 H Basophils % 1.8 Nucleated Red Blood 0.0 Cells % Immature Granulocytes # 0.160 H Neutrophils # 7.2 Lymphocytes # 1.6 Monocytes # 0.9 Eosinophils # 1.0 H Basophils # 0.2 H Nucleated Red Blood 0.0 Cells # Sodium Level 143 Potassium Level 3.8 Chloride Level 100 Carbon Dioxide Level 27 Anion Gap 16 H Blood Urea Nitrogen 63 H Creatinine 2.05 H Est Glomerular Filtrat 38 L Rate mL/min Glucose Level 107 Calcium Level 9.8 Phosphorus Level 4.6 Magnesium Level 1.8 Total Bilirubin 0.3 Direct Bilirubin 0.00 Indirect Bilirubin 0.3 Aspartate Amino 40 Transf (AST/SGOT) Alanine 66 Aminotransferase (ALT/SG PT) Alkaline Phosphatase 94 Total Protein 8.1 Albumin 4.0 Globulin 4.10 H Albumin/Globulin Ratio 0.97 Test 09/13/18 13:28 Bedside Glucose 121 Consultation Date/Type/Reason Admit Date/Time Aug 20, 2018 at 21:39 Type of Consult Neurology Reason for Consultation lethargy/weakness Requesting Provider: YUMIKO JC MD Date/Time of Note DATE: 09/13/18 TIME: 16:20 24 HR Interval Summary Free Text/Dictation Continues medsurg monitoring. Pt sat at edge of bed today with assistance from physical therapy. Pt states he's doing much better today. Exam Vital Signs Vitals Vital Signs Date Temp Pulse Resp B/P (MAP) Pulse Ox O2 O2 Flow FiO2 Time Delivery Rate 09/13/18 97.4 77 18 117/71 98 Room Air 13:56 (86) Intake and Output 09/12/18 09/12/18 09/13/18 1515:00 23:00 07:00 IntakeIntake Total 1080 ml 800 ml OutputOutput Total 2100 ml 2200 ml 2200 ml BalanceBalance -1020 ml -1400 ml -2200 ml Exam PE: Gen Appearance: No Apparent Distress HEENT: Normocephalic Cardiovascular: Regular rate Abdomen: Soft Extremities: Dry NE: The patient was awake, alert, and somewhat conversant. Oriented to self, hospital, year; unable to fully recall situation...able to follow simple axial and appendicular commands.. Cranial nerve examination was limited by mental status. Pupils were equal and reactive to light. There was no afferent pupillary defect. Funduscopic examination was limited. Face was grossly symmetric, w/ present corneal and cough reflexes. Tone was normal. Muscle bulk was normal. I did not see fasciculations. The patient was moving his L arm spontaneously and was antigravity, able to move his R forearm spontaneously and wiggle his toes on the left; still severely weak, though improved today.. Coordination and gait testing was limited by weakness.. Arm and leg reflexes were brisk in the right arm and left leg. Phillips's sign was absent. Plantar responses were mute.. TIN GUIDO NP Sep 13, 2018 16:26 GEOVANNI BANKS Sep 13, 2018 17:53
--- NOTE | 2018-09-13 16:27 | CONS ---
Date/Time of Note Date/Time of Note DATE: 09/13/18 TIME: 16:24 Assessment/Plan Assessment/Plan Assessment/Plan Acute respiratory failure status post extubation Low normal left ventricular ejection fraction 50% Sepsis Acute kidney injury, was on hemodialysis Myocardial infarction, likely type II Encephalopathy GI bleed Liver dysfunction Illicit drug use -Off aspirin secondary to GI bleed. Continue beta-kishan as tolerated. No new cardiac orders at the current time Result Diagram: 09/13/18 0548 09/13/18 0548 Results 24hrs Laboratory Tests Test 09/12/18 17:47 09/12/18 21:20 09/13/18 05:48 09/13/18 07:59 Bedside Glucose 112 106 97 White Blood Count 11.0 H Red Blood Count 3.51 L Hemoglobin 10.8 L Hematocrit 32.9 L Mean Corpuscular Volume 93.7 Mean Corpuscular 30.8 Hemoglobin Mean Corpuscular 32.8 Hemoglobin Concent Red Cell Distribution 13.9 Width Platelet Count 415 Mean Platelet Volume 9.7 Immature Granulocytes % 1.500 H Neutrophils % 65.1 Lymphocytes % 14.6 L Monocytes % 7.8 Eosinophils % 9.2 H Basophils % 1.8 Nucleated Red Blood 0.0 Cells % Immature Granulocytes # 0.160 H Neutrophils # 7.2 Lymphocytes # 1.6 Monocytes # 0.9 Eosinophils # 1.0 H Basophils # 0.2 H Nucleated Red Blood 0.0 Cells # Sodium Level 143 Potassium Level 3.8 Chloride Level 100 Carbon Dioxide Level 27 Anion Gap 16 H Blood Urea Nitrogen 63 H Creatinine 2.05 H Est Glomerular Filtrat 38 L Rate mL/min Glucose Level 107 Calcium Level 9.8 Phosphorus Level 4.6 Magnesium Level 1.8 Total Bilirubin 0.3 Direct Bilirubin 0.00 Indirect Bilirubin 0.3 Aspartate Amino 40 Transf (AST/SGOT) Alanine 66 Aminotransferase (ALT/SG PT) Alkaline Phosphatase 94 Total Protein 8.1 Albumin 4.0 Globulin 4.10 H Albumin/Globulin Ratio 0.97 Test 09/13/18 13:28 Bedside Glucose 121 Consultation Date/Type/Reason Admit Date/Time Aug 20, 2018 at 21:39 Initial Consult Date 08/21/18 Type of Consult cv Requesting Provider: YUMIKO JC MD 24 HR Interval Summary Free Text/Dictation Patient seen and examined Exam/Review of Systems Vital Signs Vitals Vital Signs Date Temp Pulse Resp B/P (MAP) Pulse Ox O2 O2 Flow FiO2 Time Delivery Rate 09/13/18 97.4 77 18 117/71 98 Room Air 13:56 (86) Intake and Output 09/12/18 09/12/18 09/13/18 1515:00 23:00 07:00 IntakeIntake Total 1080 ml 800 ml OutputOutput Total 2100 ml 2200 ml 2200 ml BalanceBalance -1020 ml -1400 ml -2200 ml Exam Sleeping, no apparent distress Head: normocephalic Respiratory: other (Coarse breath sounds bilaterally, no wheezing) Cardiovascular: regular rate and rhythm, other (S1-S2 heard) Gastrointestinal: soft, non-tender, bowel sounds Extremities: edema Medications Medications Current Medications Albuterol (Ventolin Hfa) 4 puff Q2H RESP THERAPY PRN INH SHORTNESS OF BREATH; Start 08/20/18 at 22:00 Ipratropium [place] (Atrovent Hfa) 4 puff Q2H RESP THERAPY PRN INH SHORTNESS OF BREATH; Start 08/20/18 at 22:00 Acetaminophen (Tylenol Liquid) 650 mg Q6H PRN PO PAIN LEVEL 1-3 OR FEVER Last administered on 09/10/18at 11:22; Admin Dose 650 MG; Start 08/20/18 at 22:00 Miscellaneous Information 1 ea NOTE XX ; Start 08/21/18 at 16:30 Glucose (Glutose) 15 gm Q15M PRN PO DECREASED GLUCOSE; Start 08/21/18 at 16:30 Glucose (Glutose) 22.5 gm Q15M PRN PO DECREASED GLUCOSE; Start 08/21/18 at 16:30 Dextrose (D50w Syringe) 25 ml Q15M PRN IV DECREASED GLUCOSE; Start 08/21/18 at 16:30 Dextrose (D50w Syringe) 50 ml Q15M PRN IV DECREASED GLUCOSE; Start 08/21/18 at 16:30 Glucagon (Glucagen) 1 mg Q15M PRN IM DECREASED GLUCOSE; Start 08/21/18 at 16:30 Glucose (Glutose) 15 gm Q15M PRN BUCCAL DECREASED GLUCOSE; Start 08/21/18 at 16:30 Metoprolol Tartrate (Lopressor) 25 mg BID PO Last administered on 09/13/18at 08:34; Admin Dose 25 MG; Start 08/23/18 at 21:00 Epinephrine (Racepinephrine 2.25% (Neb)) 0.25 ml Q3H RESP THERAPY PRN HHN STRIDOR; Start 08/23/18 at 17:00 Ondansetron HCl (Zofran Inj) 4 mg Q6H PRN IV NAUSEA AND/OR VOMITING Last administered on 08/25/18at 21:47; Admin Dose 4 MG; Start 08/25/18 at 21:30 Diagnostic Test (Pha) (Accu-Chek) 1 ea 02 XX ; Start 08/27/18 at 02:00 Heparin Sodium (Porcine) (Heparin (5000 Units/1ml)) 5,000 unit Q8 SC Last administered on 09/01/18at 14:27; Admin Dose 5,000 UNIT; Start 08/29/18 at 14:00; Status Hold Epoetin Isacc (Epogen (Non Esrd/Non Oncology)) 10,000 units MoWeFr@17 SC Last administered on 09/12/18 17:50; Admin Dose 10,000 UNITS; Start 08/29/18 at 17:00 Albumin Human 50 ml @ 100 mls/hr DURING DIALYSIS PRN IV During HD. Last administered on 08/29/18at 13:55; Admin Dose 100 MLS/HR; Start 08/29/18 at 12:30 Aspirin (Aspirin) 81 mg DAILY PO Last administered on 09/03/18at 08:37; Admin Dose 81 MG; Start 08/30/18 at 09:00; Status Hold Heparin Sodium (Porcine) (Heparin (1000 Units/ml)) 3,000 unit AFTER DIALYSIS CATHETER Last administered on 09/05/18at 10:12; Admin Dose 3,000 UNIT; Start 09/01/18 at 12:30 Sucralfate (Carafate Susp) 1 gm QID PO Last administered on 09/13/18 13:33; Admin Dose 1 GM; Start 09/01/18 at 16:00 Pantoprazole (Protonix Iv) 40 mg BID@06,18 IV Last administered on 09/13/18 05: 25; Admin Dose 40 MG; Start 09/01/18 at 18:00 Insulin Aspart (Novolog Insulin Pen) (Adult SC Insulin - Mild Algorithm)... AC MEALS AND BEDTIME SC Last administered on 09/12/18 12:51; Admin Dose 1 UNIT; Start 09/03/18 at 07:00 Linezolid (Zyvox) 600 mg BID PO Last administered on 09/13/18 08:33; Admin Dose 600 MG; Start 09/08/18 at 12:30 Levofloxacin (Levaquin) 250 mg Q2D@0600 PO Last administered on 09/12/18at 06:59; Admin Dose 250 MG; Start 09/08/18 at 15:00 Fluconazole (Diflucan) 100 mg DAILY PO Last administered on 09/13/18 08:33; Admin Dose 100 MG; Start 09/11/18 at 12:00 Sodium Chloride 1,000 ml @ 80 mls/hr [id number] IV Last administered on 09/13/18 08:56; Admin Dose 80 MLS/HR; Start 09/13/18 at 09:00 Kana Phoenix DO Sep 13, 2018 16:27
[2018-09-13 20:00] VITALS: BP 113/68; PULSE 69; RESP 19
[2018-09-14 02:00] VITALS: BP 126/78; PULSE 69; RESP 18
[2018-09-14] MEDS: ACCU-CHEK XX SCH (02:00)
[2018-09-14] MEDS: LEVOFLOXACIN 250 MG TAB PO SCH (05:51)
[2018-09-14] MEDS: PANTOPRAZOLE 40 MG INJ IV SCH ×2 (05:51→17:48)
[2018-09-14] MEDS: INSULIN ASPART [NOVOLOG] 3 ML PEN SC SCH ×4 (07:00→21:00)
[2018-09-14 07:41] VITALS: BP 119/74; PULSE 79; RESP 16
--- NOTE | 2018-09-14 08:33 | CONS ---
Date/Time of Note Date/Time of Note DATE: 09/14/18 TIME: 08:30 Assessment/Plan Assessment/Plan Assessment/Plan 1. ARF, continues to improve 2. No change in neurologic deficit 3. Anemia is stable 4. Contd neg fluid balance, will inc iv Result Diagram: 09/14/18 0448 09/14/18 0448 Results 24hrs Laboratory Tests Test 09/13/18 13:28 09/13/18 17:37 09/13/18 20:31 09/14/18 04:48 Bedside Glucose 121 103 126 White Blood Count 11.4 H Red Blood Count 3.56 L Hemoglobin 11.0 L Hematocrit 34.0 L Mean Corpuscular Volume 95.5 Mean Corpuscular 30.9 Hemoglobin Mean Corpuscular 32.4 Hemoglobin Concent Red Cell Distribution 13.9 Width Platelet Count 436 H Mean Platelet Volume 9.8 Immature Granulocytes % 1.000 H Neutrophils % 65.9 Lymphocytes % 13.9 L Monocytes % 8.2 Eosinophils % 9.4 H Basophils % 1.6 Nucleated Red Blood 0.3 H Cells % Immature Granulocytes # 0.110 H Neutrophils # 7.5 Lymphocytes # 1.6 Monocytes # 0.9 Eosinophils # 1.1 H Basophils # 0.2 H Nucleated Red Blood 0.0 Cells # Sodium Level 142 Potassium Level 3.6 Chloride Level 102 Carbon Dioxide Level 25 Anion Gap 15 H Blood Urea Nitrogen 56 H Creatinine 1.63 H Est Glomerular Filtrat 49 L Rate mL/min Glucose Level 120 Calcium Level 9.6 Phosphorus Level 3.6 Magnesium Level 2.0 Consultation Date/Type/Reason Admit Date/Time Aug 20, 2018 at 21:39 Initial Consult Date 08/21/18 Requesting Provider: YUMIKO JC MD 24 HR Interval Summary Constitutional: other (alert) Detailed Summary Respiratory: shortness of breath; No cough Cardiovascular: No chest pain Gastrointestinal: no complaints Genitourinary: other (schwartz in place) Exam/Review of Systems Vital Signs Vitals Vital Signs Date Temp Pulse Resp B/P (MAP) Pulse Ox O2 O2 Flow FiO2 Time Delivery Rate 09/14/18 98.3 79 16 119/74 97 07:41 (89) 09/13/18 Room Air 20:00 Intake and Output 09/13/18 09/13/18 09/14/18 1515:00 23:00 07:00 IntakeIntake Total 530 ml 760 ml 840 ml OutputOutput Total 2100 ml BalanceBalance 530 ml -1340 ml 840 ml Exam Neck: No jvd Respiratory: clear to auscultation Cardiovascular: regular rate and rhythm Gastrointestinal: soft Extremities: No edema Neurological: other (arm strength without change, still unable to move right f oot) Medications Medications Current Medications Albuterol (Ventolin Hfa) 4 puff Q2H RESP THERAPY PRN INH SHORTNESS OF BREATH; Start 08/20/18 at 22:00 Ipratropium [place] (Atrovent Hfa) 4 puff Q2H RESP THERAPY PRN INH SHORTNESS OF BREATH; Start 08/20/18 at 22:00 Acetaminophen (Tylenol Liquid) 650 mg Q6H PRN PO PAIN LEVEL 1-3 OR FEVER Last administered on 09/10/18at 11:22; Admin Dose 650 MG; Start 08/20/18 at 22:00 Miscellaneous Information 1 ea NOTE XX ; Start 08/21/18 at 16:30 Glucose (Glutose) 15 gm Q15M PRN PO DECREASED GLUCOSE; Start 08/21/18 at 16:30 Glucose (Glutose) 22.5 gm Q15M PRN PO DECREASED GLUCOSE; Start 08/21/18 at 16:30 Dextrose (D50w Syringe) 25 ml Q15M PRN IV DECREASED GLUCOSE; Start 08/21/18 at 16:30 Dextrose (D50w Syringe) 50 ml Q15M PRN IV DECREASED GLUCOSE; Start 08/21/18 at 16:30 Glucagon (Glucagen) 1 mg Q15M PRN IM DECREASED GLUCOSE; Start 08/21/18 at 16:30 Glucose (Glutose) 15 gm Q15M PRN BUCCAL DECREASED GLUCOSE; Start 08/21/18 at 16:30 Metoprolol Tartrate (Lopressor) 25 mg BID PO Last administered on 09/13/18at 20:27; Admin Dose 25 MG; Start 08/23/18 at 21:00 Epinephrine (Racepinephrine 2.25% (Neb)) 0.25 ml Q3H RESP THERAPY PRN HHN STRIDOR; Start 08/23/18 at 17:00 Ondansetron HCl (Zofran Inj) 4 mg Q6H PRN IV NAUSEA AND/OR VOMITING Last administered on 08/25/18at 21:47; Admin Dose 4 MG; Start 08/25/18 at 21:30 Diagnostic Test (Pha) (Accu-Chek) 1 ea 02 XX ; Start 08/27/18 at 02:00 Heparin Sodium (Porcine) (Heparin (5000 Units/1ml)) 5,000 unit Q8 SC Last administered on 09/01/18at 14:27; Admin Dose 5,000 UNIT; Start 08/29/18 at 14:00; Status Hold Epoetin Isacc (Epogen (Non Esrd/Non Oncology)) 10,000 units MoWeFr@17 SC Last administered on 09/12/18 17:50; Admin Dose 10,000 UNITS; Start 08/29/18 at 17:00 Albumin Human 50 ml @ 100 mls/hr DURING DIALYSIS PRN IV During HD. Last administered on 08/29/18at 13:55; Admin Dose 100 MLS/HR; Start 08/29/18 at 12:30 Aspirin (Aspirin) 81 mg DAILY PO Last administered on 09/03/18at 08:37; Admin Dose 81 MG; Start 08/30/18 at 09:00; Status Hold Heparin Sodium (Porcine) (Heparin (1000 Units/ml)) 3,000 unit AFTER DIALYSIS CATHETER Last administered on 09/05/18at 10:12; Admin Dose 3,000 UNIT; Start 09/01/18 at 12:30 Sucralfate (Carafate Susp) 1 gm QID PO Last administered on 09/13/18 20:27; Admin Dose 1 GM; Start 09/01/18 at 16:00 Pantoprazole (Protonix Iv) 40 mg BID@06,18 IV Last administered on 09/14/18 05:51; Admin Dose 40 MG; Start 09/01/18 at 18:00 Insulin Aspart (Novolog Insulin Pen) (Adult SC Insulin - Mild Algorithm)... AC MEALS AND BEDTIME SC Last administered on 09/12/18 12:51; Admin Dose 1 UNIT; Start 09/03/18 at 07:00 Linezolid (Zyvox) 600 mg BID PO Last administered on 09/13/18 20:27; Admin Dose 600 MG; Start 09/08/18 at 12:30 Levofloxacin (Levaquin) 250 mg Q2D@0600 PO Last administered on 09/14/18 05:51; Admin Dose 250 MG; Start 09/08/18 at 15:00 Fluconazole (Diflucan) 100 mg DAILY PO Last administered on 09/13/18at 08:33; Admin Dose 100 MG; Start 09/11/18 at 12:00 Sodium Chloride 1,000 ml @ 80 mls/hr [id number] IV Last administered on 09/13/18at 23:57; Admin Dose 80 MLS/HR; Start 09/13/18 at 09:00 MAXIMO TAY MD Sep 14, 2018 08:33
[2018-09-14] MEDS ORDERED: POTASSIUM CHLORIDE (SR) 10 MEQ TAB PO ONE (09:30)
[2018-09-14] MEDS: SUCRALFATE (100 MG/ML) 10ML CUP PO SCH ×4 (09:34→21:37)
[2018-09-14] MEDS: FLUCONAZOLE 100 MG TAB PO SCH (09:34)
[2018-09-14] MEDS: ZYVOX 600 MG TAB PO SCH (09:35)
[2018-09-14] MEDS: METOPROLOL 25 MG TAB PO SCH ×2 (09:35→21:37)
[2018-09-14] MEDS ORDERED: POTASSIUM CHLORIDE 20 MEQ POWDER FOR ORAL SOLN PO ONE (11:30)
--- NOTE | 2018-09-14 13:10 | CONS ---
Date/Time of Note Date/Time of Note DATE: 09/14/18 TIME: 13:09 Assessment/Plan Assessment/Plan Hospital Course No acute events, patient is awake and looks comfortable, no fevers overnight Culture of right femoral Saurabh catheter site grew Pseudomonas, VRE and Enterobacter, tip cx + C alb Antimicrobials: Zyvox, Levaquin Diflucan Indwelling: Suh Physical examination: Well-nourished well-developed middle-aged man who is in no distress. Head atraumatic normocephalic sclera nonicteric. Neck is supple chest rise symmetrical breath sounds diminished bases. Heart: S1-S2, tachycardic. Abdomen soft bowel sounds present. Extremities with bilateral edema Assessment: 1. Systemic inflammatory response syndrome with resolving leukocytosis 2. Status post Gram-positive cocci bacteremia 3. Status post acute encephalopathy 4. Status post acute hypoxemic respiratory failure 5. Pulmonary edema 6. Acute renal failure, on hemodialysis 7. Severe anasarca 8. History of polysubstance abuse 9. Muscle weakness Plan: Remains stable, will dc abx and observe, f/u neuro/renal rec-s Result Diagram: 09/14/18 0448 09/14/18 0448 Results 24hrs Laboratory Tests Test 09/13/18 13:28 09/13/18 17:37 09/13/18 20:31 09/14/18 04:48 Bedside Glucose 121 103 126 White Blood Count 11.4 H Red Blood Count 3.56 L Hemoglobin 11.0 L Hematocrit 34.0 L Mean Corpuscular Volume 95.5 Mean Corpuscular 30.9 Hemoglobin Mean Corpuscular 32.4 Hemoglobin Concent Red Cell Distribution 13.9 Width Platelet Count 436 H Mean Platelet Volume 9.8 Immature Granulocytes % 1.000 H Neutrophils % 65.9 Lymphocytes % 13.9 L Monocytes % 8.2 Eosinophils % 9.4 H Basophils % 1.6 Nucleated Red Blood 0.3 H Cells % Immature Granulocytes # 0.110 H Neutrophils # 7.5 Lymphocytes # 1.6 Monocytes # 0.9 Eosinophils # 1.1 H Basophils # 0.2 H Nucleated Red Blood 0.0 Cells # Sodium Level 142 Potassium Level 3.6 Chloride Level 102 Carbon Dioxide Level 25 Anion Gap 15 H Blood Urea Nitrogen 56 H Creatinine 1.63 H Est Glomerular Filtrat 49 L Rate mL/min Glucose Level 120 Calcium Level 9.6 Phosphorus Level 3.6 Magnesium Level 2.0 Test 09/14/18 08:58 09/14/18 12:05 Bedside Glucose 126 122 Consultation Date/Type/Reason Admit Date/Time Aug 20, 2018 at 21:39 Initial Consult Date 08/21/18 Type of Consult id Requesting Provider: YUMIKO JC MD Exam/Review of Systems Vital Signs Vitals Vital Signs Date Temp Pulse Resp B/P (MAP) Pulse Ox O2 O2 Flow FiO2 Time Delivery Rate 09/14/18 98.3 79 16 119/74 97 07:41 (89) 09/13/18 Room Air 20:00 Intake and Output 09/13/18 09/13/18 09/14/18 1515:00 23:00 07:00 IntakeIntake Total 530 ml 760 ml 840 ml OutputOutput Total 2100 ml BalanceBalance 530 ml -1340 ml 840 ml Medications Medications Current Medications Albuterol (Ventolin Hfa) 4 puff Q2H RESP THERAPY PRN INH SHORTNESS OF BREATH; Start 08/20/18 at 22:00 Ipratropium [place] (Atrovent Hfa) 4 puff Q2H RESP THERAPY PRN INH SHORTNESS OF BREATH; Start 08/20/18 at 22:00 Acetaminophen (Tylenol Liquid) 650 mg Q6H PRN PO PAIN LEVEL 1-3 OR FEVER Last administered on 09/10/18at 11:22; Admin Dose 650 MG; Start 08/20/18 at 22:00 Miscellaneous Information 1 ea NOTE XX ; Start 08/21/18 at 16:30 Glucose (Glutose) 15 gm Q15M PRN PO DECREASED GLUCOSE; Start 08/21/18 at 16:30 Glucose (Glutose) 22.5 gm Q15M PRN PO DECREASED GLUCOSE; Start 08/21/18 at 16:30 Dextrose (D50w Syringe) 25 ml Q15M PRN IV DECREASED GLUCOSE; Start 08/21/18 at 16:30 Dextrose (D50w Syringe) 50 ml Q15M PRN IV DECREASED GLUCOSE; Start 08/21/18 at 16:30 Glucagon (Glucagen) 1 mg Q15M PRN IM DECREASED GLUCOSE; Start 08/21/18 at 16:30 Glucose (Glutose) 15 gm Q15M PRN BUCCAL DECREASED GLUCOSE; Start 08/21/18 at 16:30 Metoprolol Tartrate (Lopressor) 25 mg BID PO Last administered on 09/14/18 09:35; Admin Dose 25 MG; Start 08/23/18 at 21:00 Epinephrine (Racepinephrine 2.25% (Neb)) 0.25 ml Q3H RESP THERAPY PRN HHN STRIDOR; Start 08/23/18 at 17:00 Ondansetron HCl (Zofran Inj) 4 mg Q6H PRN IV NAUSEA AND/OR VOMITING Last administered on 08/25/18at 21:47; Admin Dose 4 MG; Start 08/25/18 at 21:30 Diagnostic Test (Pha) (Accu-Chek) 1 ea 02 XX ; Start 08/27/18 at 02:00 Heparin Sodium (Porcine) (Heparin (5000 Units/1ml)) 5,000 unit Q8 SC Last administered on 09/01/18 14:27; Admin Dose 5,000 UNIT; Start 08/29/18 at 14:00; Status Hold Epoetin Isacc (Epogen (Non Esrd/Non Oncology)) 10,000 units MoWeFr@17 SC Last administered on 09/12/18 17:50; Admin Dose 10,000 UNITS; Start 08/29/18 at 17:00 Albumin Human 50 ml @ 100 mls/hr DURING DIALYSIS PRN IV During HD. Last administered on 08/29/18at 13:55; Admin Dose 100 MLS/HR; Start 08/29/18 at 12:30 Aspirin (Aspirin) 81 mg DAILY PO Last administered on 09/03/18at 08:37; Admin Dose 81 MG; Start 08/30/18 at 09:00; Status Hold Heparin Sodium (Porcine) (Heparin (1000 Units/ml)) 3,000 unit AFTER DIALYSIS CATHETER Last administered on 09/05/18at 10:12; Admin Dose 3,000 UNIT; Start 09/01/18 at 12:30 Sucralfate (Carafate Susp) 1 gm QID PO Last administered on 09/14/18 12:03; Admin Dose 1 GM; Start 09/01/18 at 16:00 Pantoprazole (Protonix Iv) 40 mg BID@06,18 IV Last administered on 09/14/18 05:51; Admin Dose 40 MG; Start 09/01/18 at 18:00 Insulin Aspart (Novolog Insulin Pen) (Adult SC Insulin - Mild Algorithm)... AC MEALS AND BEDTIME SC Last administered on 09/12/18 12:51; Admin Dose 1 UNIT; Start 09/03/18 at 07:00 Linezolid (Zyvox) 600 mg BID PO Last administered on 09/14/18 09:35; Admin Dose 600 MG; Start 09/08/18 at 12:30 Levofloxacin (Levaquin) 250 mg Q2D@0600 PO Last administered on 09/14/18 05:51; Admin Dose 250 MG; Start 09/08/18 at 15:00 Fluconazole (Diflucan) 100 mg DAILY PO Last administered on 09/14/18 09:34; Admin Dose 100 MG; Start 09/11/18 at 12:00 Sodium Chloride 1,000 ml @ 100 mls/hr Q10H IV Last administered on 09/13/18 23:57; Admin Dose 80 MLS/HR; Start 09/13/18 at 09:00 BRIANNE COYLE NP Sep 14, 2018 13:10
--- NOTE | 2018-09-14 13:27 | CONS ---
Assessment/Plan Assessment/Plan Hospital Course A: 33 yo M with uncertain PMH who presents for evaluation of altered mental status..for which neurology is consulted.. UDS + for amphetamines, opioids, EtOH, cannabis He was reported to be severely hypoglycemic in the field. JULIAN+ CK++++ Clinically consistent with an acute and multifactorial toxic-metabolic encephalopathy. Stroke is unlikely. Seizure is unlikely. CTH (08/20) was unrevealing. Repeat CTH was most notable for bilateral globus pallidus edema MRI is notable for sequelae of a toxic-metabolic insult.. As an aside, he has profound 4-limb weakness on exam, which does not appear to be improving w/ his mental status.. MRI C spine was most notable for signal changes within the paraspinal m usculature of C3-C4 through C5-C6... which is a likely sequelae of rhabdomyolysis. P: Ok to defer additional neuroimaging for now. Cont medical management per primary Reorient as necessary Limit sedating medications where possible PT/OT as tolerated Will follow clinically, to make further neurologic recommendations as necessary Result Diagram: 09/14/18 0448 09/14/18 0448 Results 24hrs Laboratory Tests Test 09/13/18 13:28 09/13/18 17:37 09/13/18 20:31 09/14/18 04:48 Bedside Glucose 121 103 126 White Blood Count 11.4 H Red Blood Count 3.56 L Hemoglobin 11.0 L Hematocrit 34.0 L Mean Corpuscular Volume 95.5 Mean Corpuscular 30.9 Hemoglobin Mean Corpuscular 32.4 Hemoglobin Concent Red Cell Distribution 13.9 Width Platelet Count 436 H Mean Platelet Volume 9.8 Immature Granulocytes % 1.000 H Neutrophils % 65.9 Lymphocytes % 13.9 L Monocytes % 8.2 Eosinophils % 9.4 H Basophils % 1.6 Nucleated Red Blood 0.3 H Cells % Immature Granulocytes # 0.110 H Neutrophils # 7.5 Lymphocytes # 1.6 Monocytes # 0.9 Eosinophils # 1.1 H Basophils # 0.2 H Nucleated Red Blood 0.0 Cells # Sodium Level 142 Potassium Level 3.6 Chloride Level 102 Carbon Dioxide Level 25 Anion Gap 15 H Blood Urea Nitrogen 56 H Creatinine 1.63 H Est Glomerular Filtrat 49 L Rate mL/min Glucose Level 120 Calcium Level 9.6 Phosphorus Level 3.6 Magnesium Level 2.0 Test 09/14/18 08:58 09/14/18 12:05 Bedside Glucose 126 122 Consultation Date/Type/Reason Admit Date/Time Aug 20, 2018 at 21:39 Type of Consult Neurology Requesting Provider: YUMIKO JC MD Date/Time of Note DATE: 09/14/18 TIME: 13:26 24 HR Interval Summary Free Text/Dictation Continues acute care Able to move his limbs better, day by day Exam Vital Signs Vitals Vital Signs Date Temp Pulse Resp B/P (MAP) Pulse Ox O2 O2 Flow FiO2 Time Delivery Rate 09/14/18 98.3 79 16 119/74 97 07:41 (89) 09/13/18 Room Air 20:00 Intake and Output 09/13/18 09/13/18 09/14/18 1414:59 22:59 06:59 IntakeIntake Total 530 ml 760 ml 840 ml OutputOutput Total 2100 ml BalanceBalance 530 ml -1340 ml 840 ml Exam PE: Gen Appearance: No Apparent Distress HEENT: Normocephalic Cardiovascular: Regular rate Lungs: Clear bilaterally Abdomen: Soft Extremities: Dry NE: The patient was alert . Language was normal. Fund of knowledge was limited. Pupils were equal and reactive to light. There was no afferent pupillary defect. Visual lehman were normal. Funduscopic examination was limited. Extra-ocular movements were full. Ptosis was absent. There was no nystagmus. Facial sensation was normal. Face was symmetric with normal strength. Hearing was intact. Palate movements were normal. Neck strength was normal. There was normal tongue bulk and speed of movement. Tone was normal. Muscle bulk was normal. I did not see fasciculations. Arms and legs were significantly weak prox> distal, R>L, though improved from prior. Vibration sensation was normal. Temperature and pinprick sensation was normal. Rapid alternating movements were normal. There was no dysmetria. There was no intention tremor. Gait was deferred due to bedrest. Arm and leg reflexes were asymmetric. Phillips's sign was absent. Plantar responses were flexor. GEOVANNI BANKS Sep 14, 2018 13:27
--- NOTE | 2018-09-14 13:55 | PN ---
Date/Time of Note Date/Time of Note DATE: 09/14/18 TIME: 13:52 Assessment/Plan VTE Prophylaxis Risk score (from Ns)>0 risk: 3 SCD applied (from Ns): Yes Pharmacological prophylaxis: heparin Lines/Catheters IV Catheter Type (from [facility]): Peripheral IV Urinary Cath still in place: Yes Reason Cath still needed: skin wounds contaminated by urine Assessment/Plan Assessment/Plan 33 yo man brought in found down with subsequent JULIAN secondary to rhabdomyolysis; positive for alcohol, methamphetamine, cannabis, opioids as well. # Renal failure- Oliguric renal failure with hyperkalemia (after potassium replacement), also presented with severe metabolic acidosis- Likely due to a combination of rhabdo and drug use. CK levels normal now, but patient has been dialysis dependent. - Continue to follow renal recommendations, again Saurabh catheter out and patient appears to be urinating adequately now, follow BMP results to monitor BUN/creatinine levels - Patient may be having adequate renal recovery at this point, per renal documentation, and may not need another catheter insertion, will monitor #Hematochezia- Nurse reported maroon colored stool on 09/01- EGD 09/02 only with mild gastritis and distal esophagitis- MD witnessed maroon colored, grainy stool on 09/03. Rectal exam negative for external hemorrhoids or palpable internal hemorrhoids. Colonoscopy showed solitary rectal ulcer syndrome, bleeding likely from the rectal ulcer. -For now continue PPI BID and carafate #Encephalopathy and Polyneuropathy- Despite extubation on 08/24, he remains lethargic and weak.- Head CT 08/20 negative- Repeat CT on 08/31 shows some edema of the basal ganglia, confirmed on MRI, this likely represents residual toxic metabolic effect - TSH, ammonia, AM cortisol are normal. CK has normalized-also there is associated with proximal muscle weakness but intact sensation-MRI C spine was most notable for signal changes within the paraspinal musculature of C3-C4 through C5-C6... which is likely a sequelae of rhabdomyolysis. -Monitor, follow-up recommendations from neurology/neurosurgery -Reorient as needed -Continue physical therapy and occupational therapy, and case management is looking for placement options for patient so that he can get continued extensive therapy to help in strength recovery #Bacteremia- Had fever on 08/27 - Blood culture (x1 unfortunately) from that day is growing coag negative staph, a common contaminant. Repeat blood culture negative.- D/Matias right IJ. But his femoral dialysis catheter may also be a source of infection -and now in fact his wound culture from the groin area where the dialysis catheter is, is growing positive Pseudomonas, Enterobacter, and VRE -Continue Levaquin and Zyvox - Follow-up ID recommendations -again Saurabh line was removed yesterday, follow-up culture results of the tip # acute respiratory failure- extubated 08/24, was likely secondary to polysubstance overdose resulting in multiorgan dysfunction; patient had subsequent severe metabolic acidosis with inadequate respiratory compensation- now oxygen levels stable - s/p antibiotic treatment for CAP earlier this admission -Monitor, continue oxygen supplementation as needed # Elevated troponin-now appears stable- CV consulted earlier this admission. Likely demand ischemia from drug use. - Will not treat per NSTEMI protocol, monitor, follow-up cardiology recommendations # transaminitis: - May be from shock liver or drug use.- Hep B, Hep C negative. LFTs have trended down. # Rhabdomyolysis - resolved # Coagulopathy- May be due to liver and renal injury as well as drug use- No DIC. Resolved. # polysubstance abuse - Again patient was found to be positive for opioids, methamphetamine, marijuana and an elevated blood alcohol level. -Earlier this admission ordered for thiamine 300 mg IM daily times 3 days, further treatment as per the clinical course # DVT and GI prophylaxis: Protonix twice daily Result Diagram: 09/14/1844709/14/18447 Subjective 24 Hr Interval Summary Free Text/Dictation No acute overnight events. Patient seems a little more awake and alert today. Exam/Review of Systems Vital Signs Vitals Vital Signs Date Temp Pulse Resp B/P (MAP) Pulse Ox O2 O2 Flow FiO2 Time Delivery Rate 09/14/18 98.3 79 16 119/74 97 07:41 (89) 09/13/18 Room Air 20:00 Intake and Output 09/13/18 09/13/18 09/14/18 1515:00 23:00 07:00 IntakeIntake Total 530 ml 760 ml 840 ml OutputOutput Total 2100 ml BalanceBalance 530 ml -1340 ml 840 ml Exam Gen: Lying in bed, a bit more alert, but still overall lethargic Eyes: Pupils equal round reactive to light, extraocular muscles intact HEENT: PERRL, moist mucous membranes, Card: Regular rate and rhythm no murmurs Pulm: CTA bilaterally, no crackles. Abd: Soft, nondistended. Ext: No cyanosis/clubbing/edema NEURO Gen: Alert and oriented to name, location, year, month. Not oriented to day. He has no idea why he was admitted to the hospital. Mentation is still slow but slightly improved. Motor: 4/5 strength LUE. 3/5 strength RUE. Unable to lift L hand to face. 4/5 strength RLE. 3/5 strength LLE, 0/5 plantar/dorsiflexion on the left. Medications Medications Current Medications Albuterol (Ventolin Hfa) 4 puff Q2H RESP THERAPY PRN INH SHORTNESS OF BREATH; Start 08/20/18 at 22:00 Ipratropium [place] (Atrovent Hfa) 4 puff Q2H RESP THERAPY PRN INH SHORTNESS OF BREATH; Start 08/20/18 at 22:00 Acetaminophen (Tylenol Liquid) 650 mg Q6H PRN PO PAIN LEVEL 1-3 OR FEVER Last administered on 09/10/18at 11:22; Admin Dose 650 MG; Start 08/20/18 at 22:00 Miscellaneous Information 1 ea NOTE XX ; Start 08/21/18 at 16:30 Glucose (Glutose) 15 gm Q15M PRN PO DECREASED GLUCOSE; Start 08/21/18 at 16:30 Glucose (Glutose) 22.5 gm Q15M PRN PO DECREASED GLUCOSE; Start 08/21/18 at 16:30 Dextrose (D50w Syringe) 25 ml Q15M PRN IV DECREASED GLUCOSE; Start 08/21/18 at 16:30 Dextrose (D50w Syringe) 50 ml Q15M PRN IV DECREASED GLUCOSE; Start 08/21/18 at 16:30 Glucagon (Glucagen) 1 mg Q15M PRN IM DECREASED GLUCOSE; Start 08/21/18 at 16:30 Glucose (Glutose) 15 gm Q15M PRN BUCCAL DECREASED GLUCOSE; Start 08/21/18 at 16:30 Metoprolol Tartrate (Lopressor) 25 mg BID PO Last administered on 09/14/18at 09:35; Admin Dose 25 MG; Start 08/23/18 at 21:00 Epinephrine (Racepinephrine 2.25% (Neb)) 0.25 ml Q3H RESP THERAPY PRN HHN STRIDOR; Start 08/23/18 at 17:00 Ondansetron HCl (Zofran Inj) 4 mg Q6H PRN IV NAUSEA AND/OR VOMITING Last administered on 08/25/18at 21:47; Admin Dose 4 MG; Start 08/25/18 at 21:30 Diagnostic Test (Pha) (Accu-Chek) 1 ea 02 XX ; Start 08/27/18 at 02:00 Heparin Sodium (Porcine) (Heparin (5000 Units/1ml)) 5,000 unit Q8 SC Last administered on 09/01/18at 14:27; Admin Dose 5,000 UNIT; Start 08/29/18 at 14:00; Status Hold Epoetin Isacc (Epogen (Non Esrd/Non Oncology)) 10,000 units MoWeFr@17 SC Last administered on 09/12/18 17:50; Admin Dose 10,000 UNITS; Start 08/29/18 at 17:00 Albumin Human 50 ml @ 100 mls/hr DURING DIALYSIS PRN IV During HD. Last adminis tered on 08/29/18at 13:55; Admin Dose 100 MLS/HR; Start 08/29/18 at 12:30 Aspirin (Aspirin) 81 mg DAILY PO Last administered on 09/03/18at 08:37; Admin Dose 81 MG; Start 08/30/18 at 09:00; Status Hold Heparin Sodium (Porcine) (Heparin (1000 Units/ml)) 3,000 unit AFTER DIALYSIS CATHETER Last administered on 09/05/18at 10:12; Admin Dose 3,000 UNIT; Start 09/01/18 at 12:30 Sucralfate (Carafate Susp) 1 gm QID PO Last administered on 09/14/18 12:03; Admin Dose 1 GM; Start 09/01/18 at 16:00 Pantoprazole (Protonix Iv) 40 mg BID@06,18 IV Last administered on 09/14/18 05:51; Admin Dose 40 MG; Start 09/01/18 at 18:00 Insulin Aspart (Novolog Insulin Pen) (Adult SC Insulin - Mild Algorithm)... AC MEALS AND BEDTIME SC Last administered on 09/12/18 12:51; Admin Dose 1 UNIT; Start 09/03/18 at 07:00 Sodium Chloride 1,000 ml @ 100 mls/hr Q10H IV Last administered on 09/13/18at 23:57; Admin Dose 80 MLS/HR; Start 09/13/18 at 09:00 YUMIKO JC MD Sep 14, 2018 13:55
[2018-09-14] MEDS: SOD CHLORIDE 0.45% 1,000 ML IV SCH ×2 (13:56→21:44)
[2018-09-14 14:01] VITALS: BP 121/62; PULSE 74; RESP 16
[2018-09-14] MEDS: EPOETIN 10000 UNITS/ML (NON ESRD/NON ONCOLOGY) SC SCH (17:00)
[2018-09-14 19:52] VITALS: BP 124/77; PULSE 78; RESP 17
[2018-09-15] MEDS: ACCU-CHEK XX SCH (02:00)
[2018-09-15 02:07] VITALS: BP 125/72; PULSE 76; RESP 18
[2018-09-15] MEDS: PANTOPRAZOLE 40 MG INJ IV SCH ×2 (05:13→17:38)
[2018-09-15] MEDS: SOD CHLORIDE 0.45% 1,000 ML IV SCH ×2 (05:42→10:26)
[2018-09-15 07:55] VITALS: BP 122/76; PULSE 72; RESP 16
--- NOTE | 2018-09-15 08:10 | PN ---
Date/Time of Note Date/Time of Note DATE: 09/15/18 TIME: 08:07 Assessment/Plan VTE Prophylaxis Risk score (from [facility])>0 risk: 3 SCD applied (from [facility]): Yes SCD contraindicated: other Pharmacological prophylaxis: heparin Lines/Catheters IV [facility] Type (from [facility]): Peripheral IV Urinary Cath still in place: Yes Reason Cath still needed: urinary retention, skin wounds contaminated by urine Assessment/Plan Assessment/Plan 1. Renal fx continues to improve, IV reduced 2. Hypomag, addressed 3. Neuro status is improving 4. WBC is now nl, off abx Result Diagram: 09/15/1843 09/15/1843 Results 24hrs Laboratory Tests Test 09/14/18 08:58 09/14/18 12:05 09/14/18 17:28 09/14/18 21:35 Bedside Glucose 126 122 102 123 Test 09/15/18 05:43 White Blood Count 9.2 Red Blood Count 3.48 L Hemoglobin 10.8 L Hematocrit 33.3 L Mean Corpuscular Volume 95.7 Mean Corpuscular 31.0 Hemoglobin Mean Corpuscular 32.4 Hemoglobin Concent Red Cell Distribution 14.1 Width Platelet Count 377 Mean Platelet Volume 9.4 Immature Granulocytes % 0.800 H Neutrophils % 62.1 Lymphocytes % 17.5 Monocytes % 8.3 Eosinophils % 9.7 H Basophils % 1.6 Nucleated Red Blood 0.0 Cells % Immature Granulocytes # 0.070 H Neutrophils # 5.7 Lymphocytes # 1.6 Monocytes # 0.8 Eosinophils # 0.9 H Basophils # 0.2 H Nucleated Red Blood 0.0 Cells # Sodium Level 142 Potassium Level 3.9 Chloride Level 102 Carbon Dioxide Level 23 Anion Gap 17 H Blood Urea Nitrogen 47 H Creatinine 1.45 H Est Glomerular Filtrat 56 L Rate mL/min Glucose Level 104 Calcium Level 9.5 Phosphorus Level 3.9 Magnesium Level 1.6 L Subjective 24 Hr Interval Summary Constitutional: other (somnoent but easily awakened, comfortable without tachypnea) Exam/Review of Systems Vital Signs Vitals Vital Signs Date Temp Pulse Resp B/P (MAP) Pulse Ox O2 O2 Flow FiO2 Time Delivery Rate 09/15/18 98.7 72 16 122/76 99 Room Air 07:55 (91) Intake and Output 09/14/18 09/14/18 09/15/18 1515:00 23:00 07:00 IntakeIntake Total 2440 ml 1480 ml 800 ml OutputOutput Total 2000 ml 2600 ml BalanceBalance 440 ml -1120 ml 800 ml Exam Neck: No jvd Respiratory: clear to auscultation Cardiovascular: regular rate and rhythm Gastrointestinal: soft Extremities: No edema Neurological: other (can move all extrem today) Medications Medications Current Medications Albuterol (Ventolin Hfa) 4 puff Q2H RESP THERAPY PRN INH SHORTNESS OF BREATH; Start 08/20/18 at 22:00 Ipratropium [place] (Atrovent Hfa) 4 puff Q2H RESP THERAPY PRN INH SHORTNESS OF BREATH; Start 08/20/18 at 22:00 Acetaminophen (Tylenol Liquid) 650 mg Q6H PRN PO PAIN LEVEL 1-3 OR FEVER Last administered on 09/10/18at 11:22; Admin Dose 650 MG; Start 08/20/18 at 22:00 Miscellaneous Information 1 ea NOTE XX ; Start 08/21/18 at 16:30 Glucose (Glutose) 15 gm Q15M PRN PO DECREASED GLUCOSE; Start 08/21/18 at 16:30 Glucose (Glutose) 22.5 gm Q15M PRN PO DECREASED GLUCOSE; Start 08/21/18 at 16:30 Dextrose (D50w Syringe) 25 ml Q15M PRN IV DECREASED GLUCOSE; Start 08/21/18 at 16:30 Dextrose (D50w Syringe) 50 ml Q15M PRN IV DECREASED GLUCOSE; Start 08/21/18 at 16:30 Glucagon (Glucagen) 1 mg Q15M PRN IM DECREASED GLUCOSE; Start 08/21/18 at 16:30 Glucose (Glutose) 15 gm Q15M PRN BUCCAL DECREASED GLUCOSE; Start 08/21/18 at 16:30 Metoprolol Tartrate (Lopressor) 25 mg BID PO Last administered on 09/14/18at 21 :37; Admin Dose 25 MG; Start 08/23/18 at 21:00 Epinephrine (Racepinephrine 2.25% (Neb)) 0.25 ml Q3H RESP THERAPY PRN HHN STRIDOR; Start 08/23/18 at 17:00 Ondansetron HCl (Zofran Inj) 4 mg Q6H PRN IV NAUSEA AND/OR VOMITING Last administered on 08/25/18at 21:47; Admin Dose 4 MG; Start 08/25/18 at 21:30 Diagnostic Test (Pha) (Accu-Chek) 1 ea 02 XX ; Start 08/27/18 at 02:00 Heparin Sodium (Porcine) (Heparin (5000 Units/1ml)) 5,000 unit Q8 SC Last administered on 09/01/18 14:27; Admin Dose 5,000 UNIT; Start 08/29/18 at 14:00; Status Hold Epoetin Isacc (Epogen (Non Esrd/Non Oncology)) 10,000 units MoWeFr@17 SC Last administered on 09/12/18 17:50; Admin Dose 10,000 UNITS; Start 08/29/18 at 17:00 Albumin Human 50 ml @ 100 mls/hr DURING DIALYSIS PRN IV During HD. Last administered on 08/29/18 13:55; Admin Dose 100 MLS/HR; Start 08/29/18 at 12:30 Aspirin (Aspirin) 81 mg DAILY PO Last administered on 09/03/18 08:37; Admin Dose 81 MG; Start 08/30/18 at 09:00; Status Hold Heparin Sodium (Porcine) (Heparin (1000 Units/ml)) 3,000 unit AFTER DIALYSIS CATHETER Last administered on 09/05/18 10:12; Admin Dose 3,000 UNIT; Start 09/01/18 at 12:30 Sucralfate (Carafate Susp) 1 gm QID PO Last administered on 09/14/18 21:37; Admin Dose 1 GM; Start 09/01/18 at 16:00 Pantoprazole (Protonix Iv) 40 mg BID@06,18 IV Last administered on 09/15/18 05:13; Admin Dose 40 MG; Start 09/01/18 at 18:00 Insulin Aspart (Novolog Insulin Pen) (Adult SC Insulin - Mild Algorithm)... AC MEALS AND BEDTIME SC Last administered on 09/12/18 12:51; Admin Dose 1 UNIT; Start 09/03/18 at 07:00 Sodium Chloride 1,000 ml @ 100 mls/hr Q10H IV Last administered on 09/14/18 21:44; Admin Dose 100 MLS/HR; Start 09/13/18 at 09:00 MAXIMO TAY MD Sep 15, 2018 08:10
[2018-09-15] MEDS: INSULIN ASPART [NOVOLOG] 3 ML PEN SC SCH ×4 (08:25→20:42)
[2018-09-15] MEDS ORDERED: MAGNESIUM SULFATE 3 GM in DEXTROSE 5% 100 ML IVPB ONE (09:30)
[2018-09-15] MEDS: METOPROLOL 25 MG TAB PO SCH ×2 (10:19→20:42)
[2018-09-15] MEDS: SUCRALFATE (100 MG/ML) 10ML CUP PO SCH ×4 (10:19→20:41)
--- NOTE | 2018-09-15 10:45 | CONS ---
Date/Time of Note Date/Time of Note DATE: 09/15/18 TIME: 10:44 Assessment/Plan Assessment/Plan Hospital Course No acute events, patient is awake and looks comfortable, no fevers overnight Culture of right femoral Saurabh catheter site grew Pseudomonas, VRE and Enterobacter, tip cx + C alb Indwelling: Suh Physical examination: Well-nourished well-developed middle-aged man who is in no distress. Head atraumatic normocephalic sclera nonicteric. Neck is supple chest rise symmetrical breath sounds diminished bases. Heart: S1-S2, tachycardic. Abdomen soft bowel sounds present. Extremities with bilateral ruben ma Assessment: 1. Systemic inflammatory response syndrome with resolved leukocytosis 2. Status post Gram-positive cocci bacteremia 3. Status post acute encephalopathy 4. Status post acute hypoxemic respiratory failure 5. Pulmonary edema 6. Acute renal failure, on hemodialysis 7. Severe anasarca 8. History of polysubstance abuse 9. Muscle weakness Plan: Remains stable, off abx, f/u neuro/renal rec-s, reculture prn Result Diagram: 09/15/18 0543 09/15/18 0543 Results 24hrs Laboratory Tests Test 09/14/18 12:05 09/14/18 17:28 09/14/18 21:35 09/15/18 05:43 Bedside Glucose 122 102 123 White Blood Count 9.2 Red Blood Count 3.48 L Hemoglobin 10.8 L Hematocrit 33.3 L Mean Corpuscular 95.7 Volume Mean Corpuscular 31.0 Hemoglobin Mean Corpuscular 32.4 Hemoglobin Concent Red Cell Distribution 14.1 Width Platelet Count 377 Mean Platelet Volume 9.4 Immature Granulocytes 0.800 H % Neutrophils % 62.1 Lymphocytes % 17.5 Monocytes % 8.3 Eosinophils % 9.7 H Basophils % 1.6 Nucleated Red Blood 0.0 Cells % Immature Granulocytes 0.070 H # Neutrophils # 5.7 Lymphocytes # 1.6 Monocytes # 0.8 Eosinophils # 0.9 H Basophils # 0.2 H Nucleated Red Blood 0.0 Cells # Sodium Level 142 Potassium Level 3.9 Chloride Level 102 Carbon Dioxide Level 23 Anion Gap 17 H Blood Urea Nitrogen 47 H Creatinine 1.45 H Est Glomerular Filtrat 56 L Rate mL/min Glucose Level 104 Calcium Level 9.5 Phosphorus Level 3.9 Magnesium Level 1.6 L Test 09/15/18 08:25 Bedside Glucose 96 Consultation Date/Type/Reason Admit Date/Time Aug 20, 2018 at 21:39 Initial Consult Date 08/21/18 Type of Consult id Requesting Provider: YUMIKO JC MD Exam/Review of Systems Vital Signs Vitals Vital Signs Date Temp Pulse Resp B/P (MAP) Pulse Ox O2 O2 Flow FiO2 Time Delivery Rate 09/15/18 98.7 72 16 122/76 99 Room Air 07:55 (91) Intake and Output 09/14/18 09/14/18 09/15/18 1515:00 23:00 07:00 IntakeIntake Total 2440 ml 1480 ml 800 ml OutputOutput Total 2000 ml 2600 ml BalanceBalance 440 ml -1120 ml 800 ml Medications Medications Current Medications Albuterol (Ventolin Hfa) 4 puff Q2H RESP THERAPY PRN INH SHORTNESS OF BREATH; Start 08/20/18 at 22:00 Ipratropium [place] (Atrovent Hfa) 4 puff Q2H RESP THERAPY PRN INH SHORTNESS OF BREATH; Start 08/20/18 at 22:00 Acetaminophen (Tylenol Liquid) 650 mg Q6H PRN PO PAIN LEVEL 1-3 OR FEVER Last administered on 09/10/18at 11:22; Admin Dose 650 MG; Start 08/20/18 at 22:00 Miscellaneous Information 1 ea NOTE XX ; Start 08/21/18 at 16:30 Glucose (Glutose) 15 gm Q15M PRN PO DECREASED GLUCOSE; Start 08/21/18 at 16:30 Glucose (Glutose) 22.5 gm Q15M PRN PO DECREASED GLUCOSE; Start 08/21/18 at 16:30 Dextrose (D50w Syringe) 25 ml Q15M PRN IV DECREASED GLUCOSE; Start 08/21/18 at 16:30 Dextrose (D50w Syringe) 50 ml Q15M PRN IV DECREASED GLUCOSE; Start 08/21/18 at 16:30 Glucagon (Glucagen) 1 mg Q15M PRN IM DECREASED GLUCOSE; Start 08/21/18 at 16:30 Glucose (Glutose) 15 gm Q15M PRN BUCCAL DECREASED GLUCOSE; Start 08/21/18 at 16:30 Metoprolol Tartrate (Lopressor) 25 mg BID PO Last administered on 09/15/18at 10:19; Admin Dose 25 MG; Start 08/23/18 at 21:00 Epinephrine (Racepinephrine 2.25% (Neb)) 0.25 ml Q3H RESP THERAPY PRN HHN STRIDOR; Start 08/23/18 at 17:00 Ondansetron HCl (Zofran Inj) 4 mg Q6H PRN IV NAUSEA AND/OR VOMITING Last administered on 08/25/18at 21:47; Admin Dose 4 MG; Start 08/25/18 at 21:30 Diagnostic Test (Pha) (Accu-Chek) 1 ea 02 XX ; Start 08/27/18 at 02:00 Heparin Sodium (Porcine) (Heparin (5000 Units/1ml)) 5,000 unit Q8 SC Last administered on 09/01/18at 14:27; Admin Dose 5,000 UNIT; Start 08/29/18 at 14:00; Status Hold Albumin Human 50 ml @ 100 mls/hr DURING DIALYSIS PRN IV During HD. Last administered on 08/29/18at 13:55; Admin Dose 100 MLS/HR; Start 08/29/18 at 12:30 Aspirin (Aspirin) 81 mg DAILY PO Last administered on 09/03/18at 08:37; Admin Dose 81 MG; Start 08/30/18 at 09:00; Status Hold Heparin Sodium (Porcine) (Heparin (1000 Units/ml)) 3,000 unit AFTER DIALYSIS CATHETER Last administered on 09/05/18at 10:12; Admin Dose 3,000 UNIT; Start 09/01/18 at 12:30 Sucralfate (Carafate Susp) 1 gm QID PO Last administered on 09/15/18 10:19; Admin Dose 1 GM; Start 09/01/18 at 16:00 Pantoprazole (Protonix Iv) 40 mg BID@06,18 IV Last administered on 09/15/18 05:13; Admin Dose 40 MG; Start 09/01/18 at 18:00 Insulin Aspart (Novolog Insulin Pen) (Adult SC Insulin - Mild Algorithm)... AC MEALS AND BEDTIME SC Last administered on 09/12/18 12:51; Admin Dose 1 UNIT; Start 09/03/18 at 07:00 Sodium Chloride 1,000 ml @ 75 mls/hr [id number] IV Last administered on 09/15/18 10:26; Admin Dose 75 MLS/HR; Start 09/13/18 at 09:00 Magnesium Sulfate 3 gm/Dextrose 106 ml @ 35.333 mls/ hr ONCE ONCE IVPB ; Start 09/15/18 at 09:30; Stop 09/15/18 at 12:29 BRIANNE COYLE NP Sep 15, 2018 10:45
--- NOTE | 2018-09-15 14:12 | PN ---
Date/Time of Note Date/Time of Note DATE: 09/15/18 TIME: 14:12 Assessment/Plan VTE Prophylaxis Risk score (from Nsg)>0 risk: 1 SCD applied (from Nsg): Yes Pharmacological prophylaxis: heparin Lines/Catheters IV Catheter Type (from Nrsg): Peripheral IV Urinary Cath still in place: Yes Reason Cath still needed: skin wounds contaminated by urine Assessment/Plan Assessment/Plan 33 yo man brought in found down with subsequent JULIAN secondary to rhabdomyolysis; positive for alcohol, methamphetamine, cannabis, opioids as well. # Renal failure- Oliguric renal failure with hyperkalemia (after potassium replacement), also presented with severe metabolic acidosis- Likely due to a combination of rhabdo and drug use. CK levels normal now, but patient has been dialysis dependent. - Continue to follow renal recommendations, again Saurabh catheter out and patient appears to be urinating adequately now, follow BMP results to monitor BUN/creatinine levels - Patient may be having adequate renal recovery at this point, per renal documentation, and may not need another catheter insertion, will monitor #Hematochezia- Nurse reported maroon colored stool on 09/01- EGD 09/02 only with mild gastritis and distal esophagitis- MD witnessed maroon colored, grainy stool on 09/03. Rectal exam negative for external hemorrhoids or palpable internal hemorrhoids. Colonoscopy showed solitary rectal ulcer syndrome, bleeding likely from the rectal ulcer. -For now continue PPI BID and carafate #Encephalopathy and Polyneuropathy- Despite extubation on 08/24, he remains lethargic and weak.- Head CT 08/20 negative- Repeat CT on 08/31 shows some edema of the basal ganglia, confirmed on MRI, this likely represents residual toxic metabolic effect - TSH, ammonia, AM cortisol are normal. CK has normalized-also there is associated with proximal muscle weakness but intact sensation-MRI C spine was most notable for signal changes within the paraspinal musculature of C3-C4 through C5-C6... which is likely a sequelae of rhabdomyolysis. -Monitor, follow-up recommendations from neurology/neurosurgery -Reorient as needed -Continue physical therapy and occupational therapy, and case management is looking for placement options for patient so that he can get continued extensive therapy to help in strength recovery #Bacteremia- Had fever on 08/27 - Blood culture (x1 unfortunately) from that day is growing coag negative staph, a common contaminant. Repeat blood culture negative.- D/Matias right IJ. But his femoral dialysis catheter may also be a source of infection -and now in fact his wound culture from the groin area where the dialysis catheter is, is growing positive Pseudomonas, Enterobacter, and VRE -Continue Levaquin and Zyvox - Follow-up ID recommendations -again Saurabh line was removed yesterday, follow-up culture results of the tip # acute respiratory failure- extubated 08/24, was likely secondary to polysubstance overdose resulting in multiorgan dysfunction; patient had subsequent severe metabolic acidosis with inadequate respiratory compensation- now oxygen levels stable - s/p antibiotic treatment for CAP earlier this admission -Monitor, continue oxygen supplementation as needed # Elevated troponin-now appears stable- CV consulted earlier this admission. Likely demand ischemia from drug use. - Will not treat per NSTEMI protocol, monitor, follow-up cardiology recommendations # transaminitis: - May be from shock liver or drug use.- Hep B, Hep C negative. LFTs have trended down. # Rhabdomyolysis - resolved # Coagulopathy- May be due to liver and renal injury as well as drug use- No DIC. Resolved. # polysubstance abuse - Again patient was found to be positive for opioids, methamphetamine, marijuana and an elevated blood alcohol level. -Earlier this admission ordered for thiamine 300 mg IM daily times 3 days, further treatment as per the clinical course # DVT and GI prophylaxis: Protonix twice daily Result Diagram: 09/15/18 0543 09/15/1843 Results 24hrs Laboratory Tests Test 09/14/18 17:28 09/14/18 21:35 09/15/18 05:43 09/15/18 08:25 Bedside Glucose 102 123 96 White Blood Count 9.2 Red Blood Count 3.48 L Hemoglobin 10.8 L Hematocrit 33.3 L Mean Corpuscular 95.7 Volume Mean Corpuscular 31.0 Hemoglobin Mean Corpuscular 32.4 Hemoglobin Concent Red Cell Distribution 14.1 Width Platelet Count 377 Mean Platelet Volume 9.4 Immature Granulocytes 0.800 H % Neutrophils % 62.1 Lymphocytes % 17.5 Monocytes % 8.3 Eosinophils % 9.7 H Basophils % 1.6 Nucleated Red Blood 0.0 Cells % Immature Granulocytes 0.070 H # Neutrophils # 5.7 Lymphocytes # 1.6 Monocytes # 0.8 Eosinophils # 0.9 H Basophils # 0.2 H Nucleated Red Blood 0.0 Cells # Sodium Level 142 Potassium Level 3.9 Chloride Level 102 Carbon Dioxide Level 23 Anion Gap 17 H Blood Urea Nitrogen 47 H Creatinine 1.45 H Est Glomerular 56 L Filtrat Rate mL/min Glucose Level 104 Calcium Level 9.5 Phosphorus Level 3.9 Magnesium Level 1.6 L Test 09/15/18 12:51 Bedside Glucose 97 Subjective 24 Hr Interval Summary Free Text/Dictation No acute overnight events. Able to sit up with PT/OT today. Exam/Review of Systems Vital Signs Vitals Vital Signs Date Temp Pulse Resp B/P (MAP) Pulse Ox O2 O2 Flow FiO2 Time Delivery Rate 09/15/18 98.7 72 16 122/76 99 Room Air 07:55 (91) Intake and Output 09/14/18 09/14/18 09/15/18 1515:00 23:00 07:00 IntakeIntake Total 2440 ml 1480 ml 800 ml OutputOutput Total 2000 ml 2600 ml BalanceBalance 440 ml -1120 ml 800 ml Exam Gen: Lying in bed, a bit more alert, but still overall lethargic Eyes: Pupils equal round reactive to light, extraocular muscles intact HEENT: PERRL, moist mucous membranes, Card: Regular rate and rhythm no murmurs Pulm: CTA bilaterally, no crackles. Abd: Soft, nondistended. Ext: No cyanosis/clubbing/edema Medications Medications Current Medications Albuterol (Ventolin Hfa) 4 puff Q2H RESP THERAPY PRN INH SHORTNESS OF BREATH; Start 08/20/18 at 22:00 Ipratropium [place] (Atrovent Hfa) 4 puff Q2H RESP THERAPY PRN INH SHORTNESS OF BREATH; Start 08/20/18 at 22:00 Acetaminophen (Tylenol Liquid) 650 mg Q6H PRN PO PAIN LEVEL 1-3 OR FEVER Last administered on 09/10/18at 11:22; Admin Dose 650 MG; Start 08/20/18 at 22:00 Miscellaneous Information 1 ea NOTE XX ; Start 08/21/18 at 16:30 Glucose (Glutose) 15 gm Q15M PRN PO DECREASED GLUCOSE; Start 08/21/18 at 16:30 Glucose (Glutose) 22.5 gm Q15M PRN PO DECREASED GLUCOSE; Start 08/21/18 at 16:30 Dextrose (D50w Syringe) 25 ml Q15M PRN IV DECREASED GLUCOSE; Start 08/21/18 at 16:30 Dextrose (D50w Syringe) 50 ml Q15M PRN IV DECREASED GLUCOSE; Start 08/21/18 at 16:30 Glucagon (Glucagen) 1 mg Q15M PRN IM DECREASED GLUCOSE; Start 08/21/18 at 16:30 Glucose (Glutose) 15 gm Q15M PRN BUCCAL DECREASED GLUCOSE; Start 08/21/18 at 16:30 Metoprolol Tartrate (Lopressor) 25 mg BID PO Last administered on 09/15/18at 10:19; Admin Dose 25 MG; Start 08/23/18 at 21:00 Epinephrine (Racepinephrine 2.25% (Neb)) 0.25 ml Q3H RESP THERAPY PRN HHN STRIDOR; Start 08/23/18 at 17:00 Ondansetron HCl (Zofran Inj) 4 mg Q6H PRN IV NAUSEA AND/OR VOMITING Last administered on 08/25/18at 21:47; Admin Dose 4 MG; Start 08/25/18 at 21:30 Diagnostic Test (Pha) (Accu-Chek) 1 ea 02 XX ; Start 08/27/18 at 02:00 Heparin Sodium (Porcine) (Heparin (5000 Units/1ml)) 5,000 unit Q8 SC Last administered on 09/01/18at 14:27; Admin Dose 5,000 UNIT; Start 08/29/18 at 14:00; Status Hold Albumin Human 50 ml @ 100 mls/hr DURING DIALYSIS PRN IV During HD. Last administered on 08/29/18at 13:55; Admin Dose 100 MLS/HR; Start 08/29/18 at 12:30 Aspirin (Aspirin) 81 mg DAILY PO Last administered on 09/03/18at 08:37; Admin Dose 81 MG; Start 08/30/18 at 09:00; Status Hold Heparin Sodium (Porcine) (Heparin (1000 Units/ml)) 3,000 unit AFTER DIALYSIS CATHETER Last administered on 09/05/18at 10:12; Admin Dose 3,000 UNIT; Start 09/01/18 at 12:30 Sucralfate (Carafate Susp) 1 gm QID PO Last administered on 09/15/18at 10:19; Admin Dose 1 GM; Start 09/01/18 at 16:00 Pantoprazole (Protonix Iv) 40 mg BID@06,18 IV Last administered on 09/15/18at 05:13; Admin Dose 40 MG; Start 09/01/18 at 18:00 Insulin Aspart (Novolog Insulin Pen) (Adult SC Insulin - Mild Algorithm)... AC MEALS AND BEDTIME SC Last administered on 09/12/18 12:51; Admin Dose 1 UNIT; Start 09/03/18 at 07:00 Sodium Chloride 1,000 ml @ 75 mls/hr [id number] IV Last administered on 09/15/18at 10:26; Admin Dose 75 MLS/HR; Start 09/13/18 at 09:00 YUMIKO JC MD Sep 15, 2018 14:12
[2018-09-15 14:37] VITALS: BP 122/77; PULSE 70; RESP 15
--- NOTE | 2018-09-15 15:51 | CONS ---
Date/Time of Note Date/Time of Note DATE: 09/15/18 TIME: 15:50 Assessment/Plan Assessment/Plan Assessment/Plan Acute respiratory failure status post extubation Low normal left ventricular ejection fraction 50% Sepsis Acute kidney injury, was on hemodialysis Myocardial infarction, likely type II Encephalopathy GI bleed Liver dysfunction Illicit drug use -Off aspirin secondary to GI bleed. Continue beta-kishan as tolerated. No new cardiac orders at the current time Result Diagram: 09/15/18 0543 09/15/18 0543 Results 24hrs Laboratory Tests Test 09/14/18 17:28 09/14/18 21:35 09/15/18 05:43 09/15/18 08:25 Bedside Glucose 102 123 96 White Blood Count 9.2 Red Blood Count 3.48 L Hemoglobin 10.8 L Hematocrit 33.3 L Mean Corpuscular 95.7 Volume Mean Corpuscular 31.0 Hemoglobin Mean Corpuscular 32.4 Hemoglobin Concent Red Cell Distribution 14.1 Width Platelet Count 377 Mean Platelet Volume 9.4 Immature Granulocytes 0.800 H % Neutrophils % 62.1 Lymphocytes % 17.5 Monocytes % 8.3 Eosinophils % 9.7 H Basophils % 1.6 Nucleated Red Blood 0.0 Cells % Immature Granulocytes 0.070 H # Neutrophils # 5.7 Lymphocytes # 1.6 Monocytes # 0.8 Eosinophils # 0.9 H Basophils # 0.2 H Nucleated Red Blood 0.0 Cells # Sodium Level 142 Potassium Level 3.9 Chloride Level 102 Carbon Dioxide Level 23 Anion Gap 17 H Blood Urea Nitrogen 47 H Creatinine 1.45 H Est Glomerular 56 L Filtrat Rate mL/min Glucose Level 104 Calcium Level 9.5 Phosphorus Level 3.9 Magnesium Level 1.6 L Test 09/15/18 12:51 Bedside Glucose 97 Consultation Date/Type/Reason Admit Date/Time Aug 20, 2018 at 21:39 Initial Consult Date 08/21/18 Type of Consult cv Requesting Provider: YUMIKO JC MD 24 HR Interval Summary Free Text/Dictation Patient seen and examined Exam/Review of Systems Vital Signs Vitals Vital Signs Date Temp Pulse Resp B/P (MAP) Pulse Ox O2 O2 Flow FiO2 Time Delivery Rate 09/15/18 98.5 70 15 122/77 100 Room Air 14:37 (92) Intake and Output 09/14/18 09/14/18 09/15/18 1515:00 23:00 07:00 IntakeIntake Total 2440 ml 1480 ml 800 ml OutputOutput Total 2000 ml 2600 ml BalanceBalance 440 ml -1120 ml 800 ml Exam Sleeping, no apparent distress Head: normocephalic Respiratory: other (Coarse breath sounds bilaterally, no wheezing) Cardiovascular: regular rate and rhythm, other (S1-S2 heard) Gastrointestinal: soft, non-tender, bowel sounds Extremities: edema Medications Medications Current Medications Albuterol (Ventolin Hfa) 4 puff Q2H RESP THERAPY PRN INH SHORTNESS OF BREATH; Start 08/20/18 at 22:00 Ipratropium [place] (Atrovent Hfa) 4 puff Q2H RESP THERAPY PRN INH SHORTNESS OF BREATH; Start 08/20/18 at 22:00 Acetaminophen (Tylenol Liquid) 650 mg Q6H PRN PO PAIN LEVEL 1-3 OR FEVER Last administered on 09/10/18at 11:22; Admin Dose 650 MG; Start 08/20/18 at 22:00 Miscellaneous Information 1 ea NOTE XX ; Start 08/21/18 at 16:30 Glucose (Glutose) 15 gm Q15M PRN PO DECREASED GLUCOSE; Start 08/21/18 at 16:30 Glucose (Glutose) 22.5 gm Q15M PRN PO DECREASED GLUCOSE; Start 08/21/18 at 16:30 Dextrose (D50w Syringe) 25 ml Q15M PRN IV DECREASED GLUCOSE; Start 08/21/18 at 16:30 Dextrose (D50w Syringe) 50 ml Q15M PRN IV DECREASED GLUCOSE; Start 08/21/18 at 16:30 Glucagon (Glucagen) 1 mg Q15M PRN IM DECREASED GLUCOSE; Start 08/21/18 at 16:30 Glucose (Glutose) 15 gm Q15M PRN BUCCAL DECREASED GLUCOSE; Start 08/21/18 at 16:30 Metoprolol Tartrate (Lopressor) 25 mg BID PO Last administered on 09/15/18at 10:19; Admin Dose 25 MG; Start 08/23/18 at 21:00 Epinephrine (Racepinephrine 2.25% (Neb)) 0.25 ml Q3H RESP THERAPY PRN HHN STRIDOR; Start 08/23/18 at 17:00 Ondansetron HCl (Zofran Inj) 4 mg Q6H PRN IV NAUSEA AND/OR VOMITING Last administered on 08/25/18at 21:47; Admin Dose 4 MG; Start 08/25/18 at 21:30 Diagnostic Test (Pha) (Accu-Chek) 1 ea 02 XX ; Start 08/27/18 at 02:00 Heparin Sodium (Porcine) (Heparin (5000 Units/1ml)) 5,000 unit Q8 SC Last administered on 09/01/18at 14:27; Admin Dose 5,000 UNIT; Start 08/29/18 at 14:00; Status Hold Albumin Human 50 ml @ 100 mls/hr DURING DIALYSIS PRN IV During HD. Last administered on 08/29/18at 13:55; Admin Dose 100 MLS/HR; Start 08/29/18 at 12:30 Aspirin (Aspirin) 81 mg DAILY PO Last administered on 09/03/18at 08:37; Admin Dose 81 MG; Start 08/30/18 at 09:00; Status Hold Heparin Sodium (Porcine) (Heparin (1000 Units/ml)) 3,000 unit AFTER DIALYSIS CATHETER Last administered on 09/05/18at 10:12; Admin Dose 3,000 UNIT; Start 09/01/18 at 12:30 Sucralfate (Carafate Susp) 1 gm QID PO Last administered on 09/15/18 10:19; Admin Dose 1 GM; Start 09/01/18 at 16:00 Pantoprazole (Protonix Iv) 40 mg BID@06,18 IV Last administered on 09/15/18 05:13; Admin Dose 40 MG; Start 09/01/18 at 18:00 Insulin Aspart (Novolog Insulin Pen) (Adult SC Insulin - Mild Algorithm)... AC MEALS AND BEDTIME SC Last administered on 09/12/18 12:51; Admin Dose 1 UNIT; Start 09/03/18 at 07:00 Sodium Chloride 1,000 ml @ 75 mls/hr [id number] IV Last administered on 09/15/18 10:26; Admin Dose 75 MLS/HR; Start 09/13/18 at 09:00 Kana Phoenix DO Sep 15, 2018 15:51
--- NOTE | 2018-09-15 16:48 | CONS ---
Assessment/Plan Assessment/Plan Hospital Course A: 33 yo M with uncertain PMH who presents for evaluation of altered mental status..for which neurology is consulted.. UDS + for amphetamines, opioids, EtOH, cannabis He was reported to be severely hypoglycemic in the field. JULIAN+ CK++++ Clinically consistent with an acute and multifactorial toxic-metabolic encephalopathy. Stroke is unlikely. Seizure is unlikely. CTH (08/20) was unrevealing. Repeat CTH was most notable for bilateral globus pallidus edema MRI is notable for sequelae of a toxic-metabolic insult.. As an aside, he has profound 4-limb weakness on exam, which does not appear to be improving w/ his mental status.. MRI C spine was most notable for signal changes within the paraspinal m usculature of C3-C4 through C5-C6... which is a likely sequelae of rhabdomyolysis. P: Ok to defer additional neuroimaging for now. Cont medical management per primary Reorient as necessary Limit sedating medications where possible PT/OT as tolerated Will follow clinically, to make further neurologic recommendations as necessary Result Diagram: 09/15/18 0543 09/15/18 0543 Results 24hrs Laboratory Tests Test 09/14/18 17:28 09/14/18 21:35 09/15/18 05:43 09/15/18 08:25 Bedside Glucose 102 123 96 White Blood Count 9.2 Red Blood Count 3.48 L Hemoglobin 10.8 L Hematocrit 33.3 L Mean Corpuscular 95.7 Volume Mean Corpuscular 31.0 Hemoglobin Mean Corpuscular 32.4 Hemoglobin Concent Red Cell Distribution 14.1 Width Platelet Count 377 Mean Platelet Volume 9.4 Immature Granulocytes 0.800 H % Neutrophils % 62.1 Lymphocytes % 17.5 Monocytes % 8.3 Eosinophils % 9.7 H Basophils % 1.6 Nucleated Red Blood 0.0 Cells % Immature Granulocytes 0.070 H # Neutrophils # 5.7 Lymphocytes # 1.6 Monocytes # 0.8 Eosinophils # 0.9 H Basophils # 0.2 H Nucleated Red Blood 0.0 Cells # Sodium Level 142 Potassium Level 3.9 Chloride Level 102 Carbon Dioxide Level 23 Anion Gap 17 H Blood Urea Nitrogen 47 H Creatinine 1.45 H Est Glomerular 56 L Filtrat Rate mL/min Glucose Level 104 Calcium Level 9.5 Phosphorus Level 3.9 Magnesium Level 1.6 L Test 09/15/18 12:51 Bedside Glucose 97 Consultation Date/Type/Reason Admit Date/Time Aug 20, 2018 at 21:39 Type of Consult Neurology Reason for Consultation lethargy/weakness Requesting Provider: YUMIKO JC MD Date/Time of Note DATE: 09/15/18 TIME: 16:46 24 HR Interval Summary Free Text/Dictation Continues medsurg monitoring. No acute events or changes in pt condition reported. Pt states that he is getting better with each day. Exam Vital Signs Vitals Vital Signs Date Temp Pulse Resp B/P (MAP) Pulse Ox O2 O2 Flow FiO2 Time Delivery Rate 09/15/18 98.5 70 15 122/77 100 Room Air 14:37 (92) Intake and Output 09/14/18 09/14/18 09/15/18 1515:00 23:00 07:00 IntakeIntake Total 2440 ml 1480 ml 800 ml OutputOutput Total 2000 ml 2600 ml BalanceBalance 440 ml -1120 ml 800 ml Exam PE: Gen Appearance: No Apparent Distress HEENT: Normocephalic Cardiovascular: Regular rate Lungs: Clear bilaterally Abdomen: Soft Extremities: Dry NE: The patient was alert . Language was normal. Fund of knowledge was limited. Pupils were equal and reactive to light. There was no afferent pupillary defect. Visual lehman were normal. Funduscopic examination was limited. Extra-ocular movements were full. Ptosis was absent. There was no nystagmus. Facial sensation was normal. Face was symmetric with normal strength. Hearing was intact. Palate movements were normal. Neck strength was normal. There was normal tongue bulk and speed of movement. Tone was normal. Muscle bulk was normal. I did not see fasciculations. Arms and legs were significantly weak prox> distal, R>L, though improved from prior. Vibration sensation was normal. Temperature and pinprick sensation was normal. Rapid alternating movements were normal. There was no dysmetria. There was no intention tremor. Gait was deferred due to bedrest. Arm and leg reflexes were asymmetric. Phillips's sign was absent. Plantar responses were flexor. TIN GUIDO NP Sep 15, 2018 16:48
[2018-09-15 19:54] VITALS: BP 125/73; PULSE 78; RESP 16
[2018-09-16] MEDS: ACCU-CHEK XX SCH (02:00)
[2018-09-16 02:17] VITALS: BP 118/68; PULSE 72; RESP 16
[2018-09-16] MEDS: SOD CHLORIDE 0.45% 1,000 ML IV SCH ×2 (03:18→17:30)
[2018-09-16] MEDS: PANTOPRAZOLE 40 MG INJ IV SCH ×2 (05:28→18:25)
[2018-09-16 07:25] VITALS: BP 126/76; PULSE 77; RESP 16
[2018-09-16] MEDS: INSULIN ASPART [NOVOLOG] 3 ML PEN SC SCH ×4 (08:09→21:00)
[2018-09-16] MEDS: SUCRALFATE (100 MG/ML) 10ML CUP PO SCH ×4 (08:27→21:11)
[2018-09-16] MEDS: METOPROLOL 25 MG TAB PO SCH ×2 (08:27→21:11)
--- NOTE | 2018-09-16 12:23 | CONS ---
Date/Time of Note Date/Time of Note DATE: 09/16/18 TIME: 12:22 Assessment/Plan Assessment/Plan Assessment/Plan Acute respiratory failure status post extubation Low normal left ventricular ejection fraction 50% Sepsis Acute kidney injury, was on hemodialysis Myocardial infarction, likely type II Encephalopathy GI bleed Liver dysfunction Illicit drug use -Off aspirin secondary to GI bleed. Continue beta-kishan as tolerated. No new cardiac orders at the current time Result Diagram: 09/16/18 0433 09/16/18 0433 Results 24hrs Laboratory Tests Test 09/15/18 12:51 09/15/18 17:28 09/15/18 20:32 09/16/18 04:33 Bedside Glucose 97 106 122 White Blood Count 9.2 Red Blood Count 3.55 L Hemoglobin 11.1 L Hematocrit 33.7 L Mean Corpuscular 94.9 Volume Mean Corpuscular 31.3 Hemoglobin Mean Corpuscular 32.9 Hemoglobin Concent Red Cell 14.5 Distribution Width Platelet Count 388 Mean Platelet Volume 9.6 Immature 0.500 H Granulocytes % Neutrophils % 61.7 Lymphocytes % 17.2 Monocytes % 8.9 Eosinophils % 9.6 H Basophils % 2.1 H Nucleated Red Blood 0.2 H Cells % Immature 0.050 H Granulocytes # Neutrophils # 5.7 Lymphocytes # 1.6 Monocytes # 0.8 Eosinophils # 0.9 H Basophils # 0.2 H Nucleated Red Blood 0.0 Cells # Sodium Level 142 Potassium Level 3.9 Chloride Level 103 Carbon Dioxide Level 25 Anion Gap 14 H Blood Urea Nitrogen 38 H Creatinine 1.22 Est Glomerular > 60 Filtrat Rate mL/min Glucose Level 101 Calcium Level 9.6 Phosphorus Level 4.0 Magnesium Level 1.9 Test 09/16/18 08:08 Bedside Glucose 94 Consultation Date/Type/Reason Admit Date/Time Aug 20, 2018 at 21:39 Initial Consult Date 08/21/18 Type of Consult cv Requesting Provider: YUMIKO JC MD 24 HR Interval Summary Free Text/Dictation Patient seen and examined, more awake today Exam/Review of Systems Vital Signs Vitals Vital Signs Date Temp Pulse Resp B/P (MAP) Pulse Ox O2 O2 Flow FiO2 Time Delivery Rate 09/16/18 98.8 77 16 126/76 99 Room Air 07:25 (93) Intake and Output 09/15/18 09/15/18 09/16/18 1515:00 23:00 07:00 IntakeIntake Total 546 ml 1220 ml 1260 ml OutputOutput Total 4000 ml 200 ml 2450 ml BalanceBalance -3454 ml 1020 ml -1190 ml Exam Awake, following basic commands, no apparent distress Head: normocephalic Respiratory: other (Coarse breath sounds bilaterally, no wheezing) Cardiovascular: regular rate and rhythm, other (S1-S2 heard) Gastrointestinal: soft, non-tender, bowel sounds Extremities: edema Medications Medications Current Medications Albuterol (Ventolin Hfa) 4 puff Q2H RESP THERAPY PRN INH SHORTNESS OF BREATH; Start 08/20/18 at 22:00 Ipratropium [place] (Atrovent Hfa) 4 puff Q2H RESP THERAPY PRN INH SHORTNESS OF BREATH; Start 08/20/18 at 22:00 Acetaminophen (Tylenol Liquid) 650 mg Q6H PRN PO PAIN LEVEL 1-3 OR FEVER Last administered on 09/10/18at 11:22; Admin Dose 650 MG; Start 08/20/18 at 22:00 Miscellaneous Information 1 ea NOTE XX ; Start 08/21/18 at 16:30 Glucose (Glutose) 15 gm Q15M PRN PO DECREASED GLUCOSE; Start 08/21/18 at 16:30 Glucose (Glutose) 22.5 gm Q15M PRN PO DECREASED GLUCOSE; Start 08/21/18 at 16:30 Dextrose (D50w Syringe) 25 ml Q15M PRN IV DECREASED GLUCOSE; Start 08/21/18 at 16:30 Dextrose (D50w Syringe) 50 ml Q15M PRN IV DECREASED GLUCOSE; Start 08/21/18 at 16:30 Glucagon (Glucagen) 1 mg Q15M PRN IM DECREASED GLUCOSE; Start 08/21/18 at 16:30 Glucose (Glutose) 15 gm Q15M PRN BUCCAL DECREASED GLUCOSE; Start 08/21/18 at 16:30 Metoprolol Tartrate (Lopressor) 25 mg BID PO Last administered on 09/16/18at 08:27; Admin Dose 25 MG; Start 08/23/18 at 21:00 Epinephrine (Racepinephrine 2.25% (Neb)) 0.25 ml Q3H RESP THERAPY PRN HHN STRIDOR; Start 08/23/18 at 17:00 Ondansetron HCl (Zofran Inj) 4 mg Q6H PRN IV NAUSEA AND/OR VOMITING Last administered on 08/25/18at 21:47; Admin Dose 4 MG; Start 08/25/18 at 21:30 Diagnostic Test (Pha) (Accu-Chek) 1 ea 02 XX ; Start 08/27/18 at 02:00 Heparin Sodium (Porcine) (Heparin (5000 Units/1ml)) 5,000 unit Q8 SC Last administered on 09/01/18 14:27; Admin Dose 5,000 UNIT; Start 08/29/18 at 14:00; Status Hold Albumin Human 50 ml @ 100 mls/hr DURING DIALYSIS PRN IV During HD. Last admin istered on 08/29/18at 13:55; Admin Dose 100 MLS/HR; Start 08/29/18 at 12:30 Aspirin (Aspirin) 81 mg DAILY PO Last administered on 09/03/18at 08:37; Admin Dose 81 MG; Start 08/30/18 at 09:00; Status Hold Heparin Sodium (Porcine) (Heparin (1000 Units/ml)) 3,000 unit AFTER DIALYSIS CATHETER Last administered on 09/05/18at 10:12; Admin Dose 3,000 UNIT; Start 09/01/18 at 12:30 Sucralfate (Carafate Susp) 1 gm QID PO Last administered on 09/16/18 08:27; Admin Dose 1 GM; Start 09/01/18 at 16:00 Pantoprazole (Protonix Iv) 40 mg BID@06,18 IV Last administered on 09/16/18 05:28; Admin Dose 40 MG; Start 09/01/18 at 18:00 Insulin Aspart (Novolog Insulin Pen) (Adult SC Insulin - Mild Algorithm)... AC MEALS AND BEDTIME SC Last administered on 09/12/18 12:51; Admin Dose 1 UNIT; Start 09/03/18 at 07:00 Sodium Chloride 1,000 ml @ 75 mls/hr [id number] IV Last administered on 09/16/18 03:18; Admin Dose 75 MLS/HR; Start 09/13/18 at 09:00 Kana Phoenix DO Sep 16, 2018 12:23
[2018-09-16 14:19] VITALS: BP 138/76; PULSE 77; RESP 16
--- NOTE | 2018-09-16 14:34 | CONS ---
Date/Time of Note Date/Time of Note DATE: 09/16/18 TIME: 14:32 Assessment/Plan Assessment/Plan Hospital Course 1. Renal fx continues to improve, IV reduced , his renal function is almost back to normal. I will sign off at this point and see again on request. 2. Hypomag, addressed 3. Neuro status is improving 4. WBC is now nl, off abx Result Diagram: 09/16/18 0433 09/16/18 0433 Results 24hrs Laboratory Tests Test 09/15/18 17:28 09/15/18 20:32 09/16/18 04:33 09/16/18 08:08 Bedside Glucose 106 122 94 White Blood Count 9.2 Red Blood Count 3.55 L Hemoglobin 11.1 L Hematocrit 33.7 L Mean Corpuscular 94.9 Volume Mean Corpuscular 31.3 Hemoglobin Mean Corpuscular 32.9 Hemoglobin Concent Red Cell 14.5 Distribution Width Platelet Count 388 Mean Platelet Volume 9.6 Immature 0.500 H Granulocytes % Neutrophils % 61.7 Lymphocytes % 17.2 Monocytes % 8.9 Eosinophils % 9.6 H Basophils % 2.1 H Nucleated Red Blood 0.2 H Cells % Immature 0.050 H Granulocytes # Neutrophils # 5.7 Lymphocytes # 1.6 Monocytes # 0.8 Eosinophils # 0.9 H Basophils # 0.2 H Nucleated Red Blood 0.0 Cells # Sodium Level 142 Potassium Level 3.9 Chloride Level 103 Carbon Dioxide Level 25 Anion Gap 14 H Blood Urea Nitrogen 38 H Creatinine 1.22 Est Glomerular > 60 Filtrat Rate mL/min Glucose Level 101 Calcium Level 9.6 Phosphorus Level 4.0 Magnesium Level 1.9 Test 09/16/18 13:02 Bedside Glucose 89 Consultation Date/Type/Reason Admit Date/Time Aug 20, 2018 at 21:39 Initial Consult Date 08/21/18 Type of Consult Nephrology Requesting Provider: YUMIKO JC MD 24 HR Interval Summary Free Text/Dictation This patient is being seen in nephrologic follow up . He is awake and responsive. He says that he feels well. Constitutional: no complaints, improved Exam/Review of Systems Vital Signs Vitals Vital Signs Date Temp Pulse Resp B/P (MAP) Pulse Ox O2 O2 Flow FiO2 Time Delivery Rate 09/16/18 98.4 77 16 138/76 100 Room Air 14:19 (96) Intake and Output 09/15/18 09/15/18 09/16/18 1515:00 23:00 07:00 IntakeIntake Total 546 ml 1220 ml 1260 ml OutputOutput Total 4000 ml 200 ml 2450 ml BalanceBalance -3454 ml 1020 ml -1190 ml Exam Constitutional: alert, oriented, frail Respiratory: clear to auscultation, normal air movement Cardiovascular: regular rate and rhythm Gastrointestinal: soft, non-tender Musculoskeletal: nl extremities to inspection Neurological: focal weakness Medications Medications Current Medications Albuterol (Ventolin Hfa) 4 puff Q2H RESP THERAPY PRN INH SHORTNESS OF BREATH; Start 08/20/18 at 22:00 Ipratropium [place] (Atrovent Hfa) 4 puff Q2H RESP THERAPY PRN INH SHORTNESS OF BREATH; Start 08/20/18 at 22:00 Acetaminophen (Tylenol Liquid) 650 mg Q6H PRN PO PAIN LEVEL 1-3 OR FEVER Last administered on 09/10/18at 11:22; Admin Dose 650 MG; Start 08/20/18 at 22:00 Miscellaneous Information 1 ea NOTE XX ; Start 08/21/18 at 16:30 Glucose (Glutose) 15 gm Q15M PRN PO DECREASED GLUCOSE; Start 08/21/18 at 16:30 Glucose (Glutose) 22.5 gm Q15M PRN PO DECREASED GLUCOSE; Start 08/21/18 at 16:30 Dextrose (D50w Syringe) 25 ml Q15M PRN IV DECREASED GLUCOSE; Start 08/21/18 at 16:30 Dextrose (D50w Syringe) 50 ml Q15M PRN IV DECREASED GLUCOSE; Start 08/21/18 at 16:30 Glucagon (Glucagen) 1 mg Q15M PRN IM DECREASED GLUCOSE; Start 08/21/18 at 16:30 Glucose (Glutose) 15 gm Q15M PRN BUCCAL DECREASED GLUCOSE; Start 08/21/18 at 16:30 Metoprolol Tartrate (Lopressor) 25 mg BID PO Last administered on 09/16/18at 08:27; Admin Dose 25 MG; Start 08/23/18 at 21:00 Epinephrine (Racepinephrine 2.25% (Neb)) 0.25 ml Q3H RESP THERAPY PRN HHN STRIDOR; Start 08/23/18 at 17:00 Ondansetron HCl (Zofran Inj) 4 mg Q6H PRN IV NAUSEA AND/OR VOMITING Last admini stered on 08/25/18at 21:47; Admin Dose 4 MG; Start 08/25/18 at 21:30 Diagnostic Test (Pha) (Accu-Chek) 1 ea 02 XX ; Start 08/27/18 at 02:00 Heparin Sodium (Porcine) (Heparin (5000 Units/1ml)) 5,000 unit Q8 SC Last administered on 09/01/18at 14:27; Admin Dose 5,000 UNIT; Start 08/29/18 at 14:00; Status Hold Albumin Human 50 ml @ 100 mls/hr DURING DIALYSIS PRN IV During HD. Last administered on 08/29/18at 13:55; Admin Dose 100 MLS/HR; Start 08/29/18 at 12:30 Aspirin (Aspirin) 81 mg DAILY PO Last administered on 09/03/18at 08:37; Admin Dose 81 MG; Start 08/30/18 at 09:00; Status Hold Heparin Sodium (Porcine) (Heparin (1000 Units/ml)) 3,000 unit AFTER DIALYSIS CATHETER Last administered on 09/05/18at 10:12; Admin Dose 3,000 UNIT; Start 09/01/18 at 12:30 Sucralfate (Carafate Susp) 1 gm QID PO Last administered on 09/16/18 13:28; Admin Dose 1 GM; Start 09/01/18 at 16:00 Pantoprazole (Protonix Iv) 40 mg BID@06,18 IV Last administered on 09/16/18 05:28; Admin Dose 40 MG; Start 09/01/18 at 18:00 Insulin Aspart (Novolog Insulin Pen) (Adult SC Insulin - Mild Algorithm)... AC MEALS AND BEDTIME SC Last administered on 09/12/18 12:51; Admin Dose 1 UNIT; Start 09/03/18 at 07:00 Sodium Chloride 1,000 ml @ 75 mls/hr [id number] IV Last administered on 09/16/18 03:18; Admin Dose 75 MLS/HR; Start 09/13/18 at 09:00 THIAGO BRANDT MD Sep 16, 2018 14:34
--- NOTE | 2018-09-16 14:35 | PN ---
Date/Time of Note Date/Time of Note DATE: 09/16/18 TIME: 14:33 Assessment/Plan VTE Prophylaxis Risk score (from Nsg)>0 risk: 2 SCD applied (from Nsg): Yes Pharmacological prophylaxis: heparin Lines/Catheters IV Catheter Type (from Nrsg): Peripheral IV Urinary Cath still in place: Yes Reason Cath still needed: other (indicate) (no) Assessment/Plan Assessment/Plan 33 yo man brought in found down with subsequent JULIAN secondary to rhabdomyolysis; positive for alcohol, methamphetamine, cannabis, opioids as well. # Renal failure- Oliguric renal failure with hyperkalemia (after potassium replacement), also presented with severe metabolic acidosis- Likely due to a combination of rhabdo and drug use. CK levels normal now, but patient has been dialysis dependent. - Continue to follow renal recommendations, again Saurabh catheter out and patient appears to be urinating adequately now, follow BMP results to monitor BUN/creatinine levels - Patient may be having adequate renal recovery at this point, per renal documentation, and may not need another catheter insertion, will monitor #Hematochezia- Nurse reported maroon colored stool on 09/01- EGD 09/02 only with mild gastritis and distal esophagitis- MD witnessed maroon colored, grainy stool on 09/03. Rectal exam negative for external hemorrhoids or palpable internal hemorrhoids. Colonoscopy showed solitary rectal ulcer syndrome, bleeding likely from the rectal ulcer. -For now continue PPI BID and carafate #Encephalopathy and Polyneuropathy- Despite extubation on 08/24, he remains lethargic and weak.- Head CT 08/20 negative- Repeat CT on 08/31 shows some edema of the basal ganglia, confirmed on MRI, this likely represents residual toxic metabolic effect - TSH, ammonia, AM cortisol are normal. CK has normalized-also there is associated with proximal muscle weakness but intact sensation-MRI C spine was most notable for signal changes within the paraspinal musculature of C3-C4 through C5-C6... which is likely a sequelae of rhabdomyolysis. -Monitor, follow-up recommendations from neurology/neurosurgery -Reorient as needed -Continue physical therapy and occupational therapy, and case management is looking for placement options for patient so that he can get continued extensive therapy to help in strength recovery #Bacteremia- Had fever on 08/27 - Blood culture (x1 unfortunately) from that day is growing coag negative staph, a common contaminant. Repeat blood culture negative.- D/Matias right IJ. But his femoral dialysis catheter may also be a source of infection -and now in fact his wound culture from the groin area where the dialysis catheter is, is growing positive Pseudomonas, Enterobacter, and VRE -Continue Levaquin and Zyvox - Follow-up ID recommendations -again Saurabh line was removed yesterday, follow-up culture results of the tip # acute respiratory failure- extubated 08/24, was likely secondary to polysubstance overdose resulting in multiorgan dysfunction; patient had subsequent severe metabolic acidosis with inadequate respiratory compensation- now oxygen levels stable - s/p antibiotic treatment for CAP earlier this admission -Monitor, continue oxygen supplementation as needed # Elevated troponin-now appears stable- CV consulted earlier this admission. Likely demand ischemia from drug use. - Will not treat per NSTEMI protocol, monitor, follow-up cardiology recommendations # transaminitis: - May be from shock liver or drug use.- Hep B, Hep C negative. LFTs have trended down. # Rhabdomyolysis - resolved # Coagulopathy- May be due to liver and renal injury as well as drug use- No DIC. Resolved. # polysubstance abuse - Again patient was found to be positive for opioids, methamphetamine, marijuana and an elevated blood alcohol level. -Earlier this admission ordered for thiamine 300 mg IM daily times 3 days, further treatment as per the clinical course # DVT and GI prophylaxis: Protonix twice daily Dispo: Plan for ARU once patient is able to take a few steps on his own. Result Diagram: 09/16/18 0433 09/16/18 0433 Results 24hrs Laboratory Tests Test 09/15/18 17:28 09/15/18 20:32 09/16/18 04:33 09/16/18 08:08 Bedside Glucose 106 122 94 White Blood Count 9.2 Red Blood Count 3.55 L Hemoglobin 11.1 L Hematocrit 33.7 L Mean Corpuscular 94.9 Volume Mean Corpuscular 31.3 Hemoglobin Mean Corpuscular 32.9 Hemoglobin Concent Red Cell 14.5 Distribution Width Platelet Count 388 Mean Platelet Volume 9.6 Immature 0.500 H Granulocytes % Neutrophils % 61.7 Lymphocytes % 17.2 Monocytes % 8.9 Eosinophils % 9.6 H Basophils % 2.1 H Nucleated Red Blood 0.2 H Cells % Immature 0.050 H Granulocytes # Neutrophils # 5.7 Lymphocytes # 1.6 Monocytes # 0.8 Eosinophils # 0.9 H Basophils # 0.2 H Nucleated Red Blood 0.0 Cells # Sodium Level 142 Potassium Level 3.9 Chloride Level 103 Carbon Dioxide Level 25 Anion Gap 14 H Blood Urea Nitrogen 38 H Creatinine 1.22 Est Glomerular > 60 Filtrat Rate mL/min Glucose Level 101 Calcium Level 9.6 Phosphorus Level 4.0 Magnesium Level 1.9 Test 09/16/18 13:02 Bedside Glucose 89 Subjective 24 Hr Interval Summary Free Text/Dictation No acute overnight events. Patient with no complaints. Exam/Review of Systems Vital Signs Vitals Vital Signs Date Temp Pulse Resp B/P (MAP) Pulse Ox O2 O2 Flow FiO2 Time Delivery Rate 09/16/18 98.4 77 16 138/76 100 Room Air 14:19 (96) Intake and Output 09/15/18 09/15/18 09/16/18 1515:00 23:00 07:00 IntakeIntake Total 546 ml 1220 ml 1260 ml OutputOutput Total 4000 ml 200 ml 2450 ml BalanceBalance -3454 ml 1020 ml -1190 ml Exam Gen: Lying in bed, awake, alert. Eyes: Pupils equal round reactive to light, extraocular muscles intact HEENT: PERRL, moist mucous membranes, Card: Regular rate and rhythm no murmurs Pulm: CTA bilaterally, no crackles. Abd: Soft, nondistended. Ext: No cyanosis/clubbing/edema Neuro: 3/5 strength bilateral upper and lower extremities. 0/5 strength R foot dorsiflexion/plantarflexion. Medications Medications Current Medications Albuterol (Ventolin Hfa) 4 puff Q2H RESP THERAPY PRN INH SHORTNESS OF BREATH; Start 08/20/18 at 22:00 Ipratropium [place] (Atrovent Hfa) 4 puff Q2H RESP THERAPY PRN INH SHORTNESS OF BREATH; Start 08/20/18 at 22:00 Acetaminophen (Tylenol Liquid) 650 mg Q6H PRN PO PAIN LEVEL 1-3 OR FEVER Last administered on 09/10/18at 11:22; Admin Dose 650 MG; Start 08/20/18 at 22:00 Miscellaneous Information 1 ea NOTE XX ; Start 08/21/18 at 16:30 Glucose (Glutose) 15 gm Q15M PRN PO DECREASED GLUCOSE; Start 08/21/18 at 16:30 Glucose (Glutose) 22.5 gm Q15M PRN PO DECREASED GLUCOSE; Start 08/21/18 at 16:30 Dextrose (D50w Syringe) 25 ml Q15M PRN IV DECREASED GLUCOSE; Start 08/21/18 at 16:30 Dextrose (D50w Syringe) 50 ml Q15M PRN IV DECREASED GLUCOSE; Start 08/21/18 at 16:30 Glucagon (Glucagen) 1 mg Q15M PRN IM DECREASED GLUCOSE; Start 08/21/18 at 16:30 Glucose (Glutose) 15 gm Q15M PRN BUCCAL DECREASED GLUCOSE; Start 08/21/18 at 16:30 Metoprolol Tartrate (Lopressor) 25 mg BID PO Last administered on 09/16/18at 08:27; Admin Dose 25 MG; Start 08/23/18 at 21:00 Epinephrine (Racepinephrine 2.25% (Neb)) 0.25 ml Q3H RESP THERAPY PRN HHN STRIDOR; Start 08/23/18 at 17:00 Ondansetron HCl (Zofran Inj) 4 mg Q6H PRN IV NAUSEA AND/OR VOMITING Last administered on 08/25/18at 21:47; Admin Dose 4 MG; Start 08/25/18 at 21:30 Diagnostic Test (Pha) (Accu-Chek) 1 ea 02 XX ; Start 08/27/18 at 02:00 Heparin Sodium (Porcine) (Heparin (5000 Units/1ml)) 5,000 unit Q8 SC Last administered on 09/01/18at 14:27; Admin Dose 5,000 UNIT; Start 08/29/18 at 14:00; Status Hold Albumin Human 50 ml @ 100 mls/hr DURING DIALYSIS PRN IV During HD. Last administered on 08/29/18at 13:55; Admin Dose 100 MLS/HR; Start 08/29/18 at 12:30 Aspirin (Aspirin) 81 mg DAILY PO Last administered on 09/03/18at 08:37; Admin Dose 81 MG; Start 08/30/18 at 09:00; Status Hold Heparin Sodium (Porcine) (Heparin (1000 Units/ml)) 3,000 unit AFTER DIALYSIS CATHETER Last administered on 09/05/18at 10:12; Admin Dose 3,000 UNIT; Start 09/01/18 at 12:30 Sucralfate (Carafate Susp) 1 gm QID PO Last administered on 09/16/18 13:28; Admin Dose 1 GM; Start 09/01/18 at 16:00 Pantoprazole (Protonix Iv) 40 mg BID@06,18 IV Last administered on 09/16/18 05:28; Admin Dose 40 MG; Start 09/01/18 at 18:00 Insulin Aspart (Novolog Insulin Pen) (Adult SC Insulin - Mild Algorithm)... AC MEALS AND BEDTIME SC Last administered on 09/12/18 12:51; Admin Dose 1 UNIT; Start 09/03/18 at 07:00 Sodium Chloride 1,000 ml @ 75 mls/hr [id number] IV Last administered on 09/16/18 03:18; Admin Dose 75 MLS/HR; Start 09/13/18 at 09:00 YUMIKO JC MD Sep 16, 2018 14:35
--- NOTE | 2018-09-16 14:51 | CONS ---
Date/Time of Note Date/Time of Note DATE: 09/16/18 TIME: 14:50 Assessment/Plan Assessment/Plan Hospital Course No acute events, no fevers overnight Indwelling: Suh Physical examination: Well-nourished well-developed middle-aged man who is in no distress. Head atraumatic normocephalic sclera nonicteric. Neck is supple chest rise symmetrical breath sounds diminished bases. Heart: S1-S2, tachycardic. Abdomen soft bowel sounds present. Extremities with bilateral edema Assessment: 1. Systemic inflammatory response syndrome with resolved leukocytosis 2. Status post Gram-positive cocci bacteremia 3. Status post acute encephalopathy 4. Status post acute hypoxemic respiratory failure 5. Pulmonary edema 6. Acute renal failure, on hemodialysis 7. Severe anasarca 8. History of polysubstance abuse 9. Muscle weakness Plan: Remains stable, off abx Result Diagram: 09/16/18 0433 09/16/18 0433 Results 24hrs Laboratory Tests Test 09/15/18 17:28 09/15/18 20:32 09/16/18 04:33 09/16/18 08:08 Bedside Glucose 106 122 94 White Blood Count 9.2 Red Blood Count 3.55 L Hemoglobin 11.1 L Hematocrit 33.7 L Mean Corpuscular 94.9 Volume Mean Corpuscular 31.3 Hemoglobin Mean Corpuscular 32.9 Hemoglobin Concent Red Cell 14.5 Distribution Width Platelet Count 388 Mean Platelet Volume 9.6 Immature 0.500 H Granulocytes % Neutrophils % 61.7 Lymphocytes % 17.2 Monocytes % 8.9 Eosinophils % 9.6 H Basophils % 2.1 H Nucleated Red Blood 0.2 H Cells % Immature 0.050 H Granulocytes # Neutrophils # 5.7 Lymphocytes # 1.6 Monocytes # 0.8 Eosinophils # 0.9 H Basophils # 0.2 H Nucleated Red Blood 0.0 Cells # Sodium Level 142 Potassium Level 3.9 Chloride Level 103 Carbon Dioxide Level 25 Anion Gap 14 H Blood Urea Nitrogen 38 H Creatinine 1.22 Est Glomerular > 60 Filtrat Rate mL/min Glucose Level 101 Calcium Level 9.6 Phosphorus Level 4.0 Magnesium Level 1.9 Test 09/16/18 13:02 Bedside Glucose 89 Consultation Date/Type/Reason Admit Date/Time Aug 20, 2018 at 21:39 Initial Consult Date 08/21/18 Type of Consult id Requesting Provider: YUMIKO JC MD Exam/Review of Systems Vital Signs Vitals Vital Signs Date Temp Pulse Resp B/P (MAP) Pulse Ox O2 O2 Flow FiO2 Time Delivery Rate 09/16/18 98.4 77 16 138/76 100 Room Air 14:19 (96) Intake and Output 09/15/18 09/15/18 09/16/18 1515:00 23:00 07:00 IntakeIntake Total 546 ml 1220 ml 1260 ml OutputOutput Total 4000 ml 200 ml 2450 ml BalanceBalance -3454 ml 1020 ml -1190 ml Medications Medications Current Medications Albuterol (Ventolin Hfa) 4 puff Q2H RESP THERAPY PRN INH SHORTNESS OF BREATH; Start 08/20/18 at 22:00 Ipratropium [place] (Atrovent Hfa) 4 puff Q2H RESP THERAPY PRN INH SHORTNESS OF BREATH; Start 08/20/18 at 22:00 Acetaminophen (Tylenol Liquid) 650 mg Q6H PRN PO PAIN LEVEL 1-3 OR FEVER Last administered on 09/10/18at 11:22; Admin Dose 650 MG; Start 08/20/18 at 22:00 Miscellaneous Information 1 ea NOTE XX ; Start 08/21/18 at 16:30 Glucose (Glutose) 15 gm Q15M PRN PO DECREASED GLUCOSE; Start 08/21/18 at 16:30 Glucose (Glutose) 22.5 gm Q15M PRN PO DECREASED GLUCOSE; Start 08/21/18 at 16:30 Dextrose (D50w Syringe) 25 ml Q15M PRN IV DECREASED GLUCOSE; Start 08/21/18 at 16:30 Dextrose (D50w Syringe) 50 ml Q15M PRN IV DECREASED GLUCOSE; Start 08/21/18 at 16:30 Glucagon (Glucagen) 1 mg Q15M PRN IM DECREASED GLUCOSE; Start 08/21/18 at 16:30 Glucose (Glutose) 15 gm Q15M PRN BUCCAL DECREASED GLUCOSE; Start 08/21/18 at 16:30 Metoprolol Tartrate (Lopressor) 25 mg BID PO Last administered on 09/16/18at 08:27; Admin Dose 25 MG; Start 08/23/18 at 21:00 Epinephrine (Racepinephrine 2.25% (Neb)) 0.25 ml Q3H RESP THERAPY PRN HHN STRIDOR; Start 08/23/18 at 17:00 Ondansetron HCl (Zofran Inj) 4 mg Q6H PRN IV NAUSEA AND/OR VOMITING Last administered on 08/25/18at 21:47; Admin Dose 4 MG; Start 08/25/18 at 21:30 Diagnostic Test (Pha) (Accu-Chek) 1 ea 02 XX ; Start 08/27/18 at 02:00 Heparin Sodium (Porcine) (Heparin (5000 Units/1ml)) 5,000 unit Q8 SC Last administered on 09/01/18 14:27; Admin Dose 5,000 UNIT; Start 08/29/18 at 14:00; Status Hold Albumin Human 50 ml @ 100 mls/hr DURING DIALYSIS PRN IV During HD. Last administered on 08/29/18 13:55; Admin Dose 100 MLS/HR; Start 08/29/18 at 12:30 Aspirin (Aspirin) 81 mg DAILY PO Last administered on 09/03/18 08:37; Admin Dose 81 MG; Start 08/30/18 at 09:00; Status Hold Heparin Sodium (Porcine) (Heparin (1000 Units/ml)) 3,000 unit AFTER DIALYSIS CATHETER Last administered on 09/05/18 10:12; Admin Dose 3,000 UNIT; Start 09/01/18 at 12:30 Sucralfate (Carafate Susp) 1 gm QID PO Last administered on 09/16/18 13:28; Admin Dose 1 GM; Start 09/01/18 at 16:00 Pantoprazole (Protonix Iv) 40 mg BID@06,18 IV Last administered on 09/16/18 05:28; Admin Dose 40 MG; Start 09/01/18 at 18:00 Insulin Aspart (Novolog Insulin Pen) (Adult SC Insulin - Mild Algorithm)... AC MEALS AND BEDTIME SC Last administered on 09/12/18 12:51; Admin Dose 1 UNIT; Start 09/03/18 at 07:00 Sodium Chloride 1,000 ml @ 50 mls/hr Q20H IV Last administered on 09/16/18 03:18; Admin Dose 75 MLS/HR; Start 09/13/18 at 09:00 BRIANNE COYLE NP Sep 16, 2018 14:51
--- NOTE | 2018-09-16 16:42 | CONS ---
Assessment/Plan Assessment/Plan Hospital Course A: 33 yo M with uncertain PMH who presents for evaluation of altered mental status..for which neurology is consulted.. UDS + for amphetamines, opioids, EtOH, cannabis He was reported to be severely hypoglycemic in the field. JULIAN+ CK++++ Clinically consistent with an acute and multifactorial toxic-metabolic encephalopathy. Stroke is unlikely. Seizure is unlikely. CTH (08/20) was unrevealing. Repeat CTH was most notable for bilateral globus pallidus edema MRI is notable for sequelae of a toxic-metabolic insult.. As an aside, he has profound 4-limb weakness on exam, which does not appear to be improving w/ his mental status.. MRI C spine was most notable for signal changes within the paraspinal m usculature of C3-C4 through C5-C6... which is a likely sequelae of rhabdomyolysis. P: Ok to defer additional neuroimaging for now. Cont medical management per primary Reorient as necessary Limit sedating medications where possible PT/OT as tolerated Will follow clinically, to make further neurologic recommendations as necessary Result Diagram: 09/16/18 0433 09/16/18 0433 Results 24hrs Laboratory Tests Test 09/15/18 17:28 09/15/18 20:32 09/16/18 04:33 09/16/18 08:08 Bedside Glucose 106 122 94 White Blood Count 9.2 Red Blood Count 3.55 L Hemoglobin 11.1 L Hematocrit 33.7 L Mean Corpuscular 94.9 Volume Mean Corpuscular 31.3 Hemoglobin Mean Corpuscular 32.9 Hemoglobin Concent Red Cell 14.5 Distribution Width Platelet Count 388 Mean Platelet Volume 9.6 Immature 0.500 H Granulocytes % Neutrophils % 61.7 Lymphocytes % 17.2 Monocytes % 8.9 Eosinophils % 9.6 H Basophils % 2.1 H Nucleated Red Blood 0.2 H Cells % Immature 0.050 H Granulocytes # Neutrophils # 5.7 Lymphocytes # 1.6 Monocytes # 0.8 Eosinophils # 0.9 H Basophils # 0.2 H Nucleated Red Blood 0.0 Cells # Sodium Level 142 Potassium Level 3.9 Chloride Level 103 Carbon Dioxide Level 25 Anion Gap 14 H Blood Urea Nitrogen 38 H Creatinine 1.22 Est Glomerular > 60 Filtrat Rate mL/min Glucose Level 101 Calcium Level 9.6 Phosphorus Level 4.0 Magnesium Level 1.9 Test 09/16/18 13:02 Bedside Glucose 89 Consultation Date/Type/Reason Admit Date/Time Aug 20, 2018 at 21:39 Type of Consult Neurology Reason for Consultation lethargy/weakness Requesting Provider: YUMIKO JC MD Date/Time of Note DATE: 09/16/18 TIME: 16:41 24 HR Interval Summary Free Text/Dictation Continues medsurg monitoring. No acute events reported. Pt says he's doing well today. Exam Vital Signs Vitals Vital Signs Date Temp Pulse Resp B/P (MAP) Pulse Ox O2 O2 Flow FiO2 Time Delivery Rate 09/16/18 98.4 77 16 138/76 100 Room Air 14:19 (96) Intake and Output 09/15/18 09/15/18 09/16/18 1414:59 22:59 06:59 IntakeIntake Total 546 ml 1220 ml 1260 ml OutputOutput Total 4000 ml 200 ml 2450 ml BalanceBalance -3454 ml 1020 ml -1190 ml Exam PE: Gen Appearance: No Apparent Distress HEENT: Normocephalic Cardiovascular: Regular rate Lungs: Clear bilaterally Abdomen: Soft Extremities: Dry NE: The patient was alert . Language was normal. Fund of knowledge was limited. Pupils were equal and reactive to light. There was no afferent pupillary defect. Visual lehman were normal. Funduscopic examination was limited. Extra-ocular movements were full. Ptosis was absent. There was no nystagmus. Facial sensation was normal. Face was symmetric with normal strength. Hearing was intact. Palate movements were normal. Neck strength was normal. There was normal tongue bulk and speed of movement. Tone was normal. Muscle bulk was normal. I did not see fasciculations. Arms and legs were significantly weak prox> distal, R>L, though improved from prior. Vibration sensation was normal. Temperature and pinprick sensation was normal. Rapid alternating movements were normal. There was no dysmetria. There was no intention tremor. Gait was deferred due to bedrest. Arm and leg reflexes were asymmetric. Phillips's sign was absent. Plantar responses were flexor. TIN GUIDO NP Sep 16, 2018 16:42
[2018-09-16 20:02] VITALS: BP 127/80; PULSE 79; RESP 16
[2018-09-17] MEDS: ACCU-CHEK XX SCH ×2 (01:27→20:18)
[2018-09-17 02:28] VITALS: BP 135/88; PULSE 70; RESP 16
[2018-09-17] MEDS: PANTOPRAZOLE 40 MG INJ IV SCH ×2 (05:57→17:45)
[2018-09-17 07:47] VITALS: BP 122/79; PULSE 68; RESP 18
[2018-09-17] MEDS: INSULIN ASPART [NOVOLOG] 3 ML PEN SC SCH ×4 (08:00→20:18)
[2018-09-17] MEDS: SUCRALFATE (100 MG/ML) 10ML CUP PO SCH ×4 (09:50→20:12)
[2018-09-17] MEDS: METOPROLOL 25 MG TAB PO SCH ×2 (09:51→20:14)
--- NOTE | 2018-09-17 13:24 | PN ---
Date/Time of Note Date/Time of Note DATE: 09/17/18 TIME: 13:20 Assessment/Plan VTE Prophylaxis Risk score (from Ns)>0 risk: 2 SCD applied (from Ns): Yes Pharmacological prophylaxis: heparin Lines/Catheters IV [facility]ter Type (from [facility]): Peripheral IV Urinary Cath still in place: Yes Reason Cath still needed: skin wounds contaminated by urine Assessment/Plan Assessment/Plan 33 yo man brought in found down with subsequent JULIAN secondary to rhabdomyolysis; positive for alcohol, methamphetamine, cannabis, opioids as well. # Renal failure- Oliguric renal failure with hyperkalemia (after potassium replacement), also presented with severe metabolic acidosis- Likely due to a combination of rhabdo and drug use. CK levels normal now, but patient has been dialysis dependent. - Continue to follow renal recommendations, again Saurabh catheter out and patient appears to be urinating adequately now, follow BMP results to monitor BUN/creatinine levels - Patient may be having adequate renal recovery at this point, per renal documentation, and may not need another catheter insertion, will monitor #Hematochezia- Nurse reported maroon colored stool on 09/01- EGD 09/02 only with mild gastritis and distal esophagitis- MD witnessed maroon colored, grainy stool on 09/03. Rectal exam negative for external hemorrhoids or palpable internal hemorrhoids. Colonoscopy showed solitary rectal ulcer syndrome, bleeding likely from the rectal ulcer. -For now continue PPI BID and carafate #Encephalopathy and Polyneuropathy- Despite extubation on 08/24, he remains lethargic and weak.- Head CT 08/20 negative- Repeat CT on 08/31 shows some edema of the basal ganglia, confirmed on MRI, this likely represents residual toxic metabolic effect - TSH, ammonia, AM cortisol are normal. CK has normalized-also there is associated with proximal muscle weakness but intact sensation-MRI C spine was most notable for signal changes within the paraspinal musculature of C3-C4 through C5-C6... which is likely a sequelae of rhabdomyolysis. -Monitor, follow-up recommendations from neurology/neurosurgery -Reorient as needed -Continue physical therapy and occupational therapy, and case management is looking for placement options for patient so that he can get continued extensive therapy to help in strength recovery #Bacteremia- Had fever on 08/27 - Blood culture (x1 unfortunately) from that day is growing coag negative staph, a common contaminant. Repeat blood culture negative.- D/Matias right IJ. But his femoral dialysis catheter may also be a source of infection -and now in fact his wound culture from the groin area where the dialysis catheter is, is growing positive Pseudomonas, Enterobacter, and VRE -Continue Levaquin and Zyvox - Follow-up ID recommendations -again Saurabh line was removed yesterday, follow-up culture results of the tip # acute respiratory failure- extubated 08/24, was likely secondary to polysubstance overdose resulting in multiorgan dysfunction; patient had subsequent severe metabolic acidosis with inadequate respiratory compensation- now oxygen levels stable - s/p antibiotic treatment for CAP earlier this admission -Monitor, continue oxygen supplementation as needed # Elevated troponin-now appears stable- CV consulted earlier this admission. Likely demand ischemia from drug use. - Will not treat per NSTEMI protocol, monitor, follow-up cardiology recommendations # transaminitis: - May be from shock liver or drug use.- Hep B, Hep C negative. LFTs have trended down. # Rhabdomyolysis - resolved # Coagulopathy- May be due to liver and renal injury as well as drug use- No DIC. Resolved. # polysubstance abuse - Again patient was found to be positive for opioids, methamphetamine, marijuana and an elevated blood alcohol level. -Earlier this admission ordered for thiamine 300 mg IM daily times 3 days, further treatment as per the clinical course # DVT and GI prophylaxis: Protonix twice daily Dispo: Plan for ARU once patient is able to take a few steps on his own. Result Diagram: 09/16/18 0433 09/16/18 0433 Results 24hrs Laboratory Tests Test 09/16/18 17:32 09/16/18 21:09 09/17/18 08:23 09/17/18 13:07 Bedside Glucose 101 112 117 104 Subjective 24 Hr Interval Summary Free Text/Dictation No acute overnight events. Patient feeling well today, no complaints. Exam/Review of Systems Vital Signs Vitals Vital Signs Date Temp Pulse Resp B/P (MAP) Pulse Ox O2 O2 Flow FiO2 Time Delivery Rate 09/17/18 98.5 68 18 122/79 99 Room Air 07:47 (93) Intake and Output 09/16/18 09/16/18 09/17/18 1515:00 23:00 07:00 IntakeIntake Total 840 ml 1440 ml 1590 ml OutputOutput Total 1000 ml 950 ml 200 ml BalanceBalance -160 ml 490 ml 1390 ml Exam Gen: Lying in bed, awake, alert. Eyes: Pupils equal round reactive to light, extraocular muscles intact HEENT: PERRL, moist mucous membranes, Card: Regular rate and rhythm no murmurs Pulm: CTA bilaterally, no crackles. Abd: Soft, nondistended. Ext: No cyanosis/clubbing/edema Medications Medications Current Medications Albuterol (Ventolin Hfa) 4 puff Q2H RESP THERAPY PRN INH SHORTNESS OF BREATH; Start 08/20/18 at 22:00 Ipratropium Lapaz (Atrovent Hfa) 4 puff Q2H RESP THERAPY PRN INH SHORTNESS OF BREATH; Start 08/20/18 at 22:00 Acetaminophen (Tylenol Liquid) 650 mg Q6H PRN PO PAIN LEVEL 1-3 OR FEVER Last administered on 09/10/18 11:22; Admin Dose 650 MG; Start 08/20/18 at 22:00 Miscellaneous Information 1 ea NOTE XX ; Start 08/21/18 at 16:30 Glucose (Glutose) 15 gm Q15M PRN PO DECREASED GLUCOSE; Start 08/21/18 at 16:30 Glucose (Glutose) 22.5 gm Q15M PRN PO DECREASED GLUCOSE; Start 08/21/18 at 16:30 Dextrose (D50w Syringe) 25 ml Q15M PRN IV DECREASED GLUCOSE; Start 08/21/18 at 16:30 Dextrose (D50w Syringe) 50 ml Q15M PRN IV DECREASED GLUCOSE; Start 08/21/18 at 16:30 Glucagon (Glucagen) 1 mg Q15M PRN IM DECREASED GLUCOSE; Start 08/21/18 at 16:30 Glucose (Glutose) 15 gm Q15M PRN BUCCAL DECREASED GLUCOSE; Start 08/21/18 at 16:30 Metoprolol Tartrate (Lopressor) 25 mg BID PO Last administered on 09/17/18at 09:51; Admin Dose 25 MG; Start 08/23/18 at 21:00 Epinephrine (Racepinephrine 2.25% (Neb)) 0.25 ml Q3H RESP THERAPY PRN HHN STRIDOR; Start 08/23/18 at 17:00 Ondansetron HCl (Zofran Inj) 4 mg Q6H PRN IV NAUSEA AND/OR VOMITING Last administered on 08/25/18at 21:47; Admin Dose 4 MG; Start 08/25/18 at 21:30 Diagnostic Test (Pha) (Accu-Chek) 1 ea 02 XX ; Start 08/27/18 at 02:00 Heparin Sodium (Porcine) (Heparin (5000 Units/1ml)) 5,000 unit Q8 SC Last administered on 09/01/18 14:27; Admin Dose 5,000 UNIT; Start 08/29/18 at 14:00; Status Hold Albumin Human 50 ml @ 100 mls/hr DURING DIALYSIS PRN IV During HD. Last administered on 08/29/18 13:55; Admin Dose 100 MLS/HR; Start 08/29/18 at 12:30 Aspirin (Aspirin) 81 mg DAILY PO Last administered on 09/03/18at 08:37; Admin Dose 81 MG; Start 08/30/18 at 09:00; Status Hold Heparin Sodium (Porcine) (Heparin (1000 Units/ml)) 3,000 unit AFTER DIALYSIS CATHETER Last administered on 09/05/18at 10:12; Admin Dose 3,000 UNIT; Start 09/01/18 at 12:30 Sucralfate (Carafate Susp) 1 gm QID PO Last administered on 09/17/18 09:50; Admin Dose 1 GM; Start 09/01/18 at 16:00 Pantoprazole (Protonix Iv) 40 mg BID@06,18 IV Last administered on 09/17/18 05:57; Admin Dose 40 MG; Start 09/01/18 at 18:00 Insulin Aspart (Novolog Insulin Pen) (Adult SC Insulin - Mild Algorithm)... AC MEALS AND BEDTIME SC Last administered on 09/12/18 12:51; Admin Dose 1 UNIT; Start 09/03/18 at 07:00 Sodium Chloride 1,000 ml @ 50 mls/hr Q20H IV Last administered on 09/16/18 17:30; Admin Dose 50 MLS/HR; Start 09/13/18 at 09:00 YUMIKO JC MD Sep 17, 2018 13:24
[2018-09-17 13:27] VITALS: BP 117/75; PULSE 75; RESP 18
[2018-09-17] MEDS: SOD CHLORIDE 0.45% 1,000 ML IV SCH ×2 (17:56→20:03)
[2018-09-17 20:39] VITALS: BP 125/76; PULSE 80; RESP 18
[2018-09-18 01:37] VITALS: BP 119/75; PULSE 73; RESP 18
[2018-09-18] MEDS: PANTOPRAZOLE 40 MG INJ IV SCH (05:07)
[2018-09-18] MEDS: INSULIN ASPART [NOVOLOG] 3 ML PEN SC SCH ×4 (07:00→20:38)
[2018-09-18 07:35] VITALS: BP 124/77; PULSE 62; RESP 18
--- NOTE | 2018-09-18 08:10 | CONS ---
Assessment/Plan Assessment/Plan Hospital Course A: 33 yo M with uncertain PMH who presents for evaluation of altered mental status..for which neurology is consulted.. UDS + for amphetamines, opioids, EtOH, cannabis He was reported to be severely hypoglycemic in the field. JULIAN+ CK++++ Clinically consistent with an acute and multifactorial toxic-metabolic encephalopathy. Stroke is unlikely. Seizure is unlikely. CTH (08/20) was unrevealing. Repeat CTH was most notable for bilateral globus pallidus edema MRI is notable for sequelae of a toxic-metabolic insult.. As an aside, he has profound 4-limb weakness on exam, which has begun to show slow improvement. MRI C spine was most notable for signal changes within the paraspinal musculature of C3-C4 through C5-C6... which is a likely sequelae of rhabdomyolysis. P: OK to defer additional neuroimaging for now. Cont medical management per primary Reorient as necessary Limit sedating medications where possible PT/OT as tolerated Will follow clinically, to make further neurologic recommendations as necessary Result Diagram: 09/18/18 0428 09/18/18 0428 Results 24hrs Laboratory Tests Test 09/17/18 08:23 09/17/18 13:07 09/17/18 17:44 09/17/18 20:15 Bedside Glucose 117 104 112 114 Test 09/18/18 04:28 09/18/18 07:57 White Blood Count 12.0 #H Red Blood Count 3.75 L Hemoglobin 11.6 L Hematocrit 35.4 L Mean Corpuscular 94.4 Volume Mean Corpuscular 30.9 Hemoglobin Mean Corpuscular 32.8 Hemoglobin Concent Red Cell 14.7 H Distribution Width Platelet Count 401 Mean Platelet Volume 9.6 Immature 1.200 H Granulocytes % Neutrophils % 65.1 Lymphocytes % 16.5 Monocytes % 9.2 Eosinophils % 6.3 Basophils % 1.7 Nucleated Red Blood 0.2 H Cells % Immature 0.140 H Granulocytes # Neutrophils # 7.8 H Lymphocytes # 2.0 Monocytes # 1.1 H Eosinophils # 0.8 H Basophils # 0.2 H Nucleated Red Blood 0.0 Cells # Sodium Level 145 H Potassium Level 3.6 Chloride Level 104 Carbon Dioxide Level 25 Anion Gap 16 H Blood Urea Nitrogen 33 H Creatinine 1.10 Est Glomerular > 60 Filtrat Rate mL/min Glucose Level 106 Calcium Level 9.8 Phosphorus Level 3.8 Magnesium Level 1.6 L Bedside Glucose 104 Consultation Date/Type/Reason Admit Date/Time Aug 20, 2018 at 21:39 Type of Consult Neurology Requesting Provider: YUMIKO JC MD Date/Time of Note DATE: 09/18/18 TIME: 08:08 24 HR Interval Summary Free Text/Dictation Continues acute care Exam Vital Signs Vitals Vital Signs Date Temp Pulse Resp B/P (MAP) Pulse Ox O2 O2 Flow FiO2 Time Delivery Rate 09/18/18 98.2 62 18 124/77 100 Room Air 07:35 (93) Intake and Output 09/17/18 09/17/18 09/18/18 1515:00 23:00 07:00 IntakeIntake Total 1040 ml 610 ml 600 ml OutputOutput Total 200 ml 525 ml BalanceBalance 840 ml 85 ml 600 ml Exam PE: Gen Appearance: No Apparent Distress HEENT: Normocephalic Cardiovascular: Regular rate Lungs: Clear bilaterally Abdomen: Soft Extremities: Dry NE: The patient was alert and oriented. Language was normal. Fund of knowledge was adequate.. Pupils were equal and reactive to light. There was no afferent pupillary defect. Visual lehman were normal. Funduscopic examination was limited. Extra-ocular movements were full. Ptosis was absent. There was no nystagmus. Facial sensation was normal. Face was symmetric with normal strength. Hearing was intact. Palate movements were normal. Neck strength was normal. There was normal tongue bulk and speed of movement. Tone was normal. Muscle bulk was normal. I did not see fasciculations. Arms and legs were weak, prox> dist, R > L.. Vibration sensation was normal. Temperature and pinprick sensation was normal. Rapid alternating movements were normal. There was no dysmetria. There was no intention tremor. Gait was deferred due to bedrest. Arm and leg reflexes were asymmetric. Phillips's sign was absent. Plantar respons es were flexor. GEOVANNI BANKS Sep 18, 2018 08:10
[2018-09-18] MEDS: SUCRALFATE (100 MG/ML) 10ML CUP PO SCH ×4 (09:30→20:41)
[2018-09-18] MEDS: METOPROLOL 25 MG TAB PO SCH ×2 (09:31→20:39)
[2018-09-18] MEDS ORDERED: MAGNESIUM SULFATE 2 GM/50 ML 50 ML IVPB ONE (11:00)
--- NOTE | 2018-09-18 12:48 | PN ---
Date/Time of Note Date/Time of Note DATE: 09/18/18 TIME: 12:44 Assessment/Plan VTE Prophylaxis Risk score (from Nsg)>0 risk: 4 SCD applied (from Nsg): Yes Pharmacological prophylaxis: LMWH Lines/Catheters IV Catheter Type (from Nrsg): Peripheral IV Urinary Cath still in place: No Assessment/Plan Assessment/Plan 33 yo man brought in found down with subsequent JULIAN secondary to rhabdomyolysis; positive for alcohol, methamphetamine, cannabis, opioids as well. #Encephalopathy and Polyneuropathy- Despite extubation on 08/24, he remains lethargic and weak.- Head CT 08/20 negative- Repeat CT on 08/31 shows some edema of the basal ganglia, confirmed on MRI, this likely represents residual toxic metabolic effect - TSH, ammonia, AM cortisol are normal. CK has normalized-also there is associated with proximal muscle weakness but intact sensation-MRI C spine was most notable for signal changes within the paraspinal musculature of C3-C4 through C5-C6... which is likely a sequelae of rhabdomyolysis. -Monitor, follow-up recommendations from neurology/neurosurgery -Reorient as needed -Continue physical therapy and occupational therapy - Plan for ARU when patient is able to take a few steps on his own. # Renal failure- resolved Oliguric renal failure with hyperkalemia (after potassium replacement), also presented with severe metabolic acidosis- Likely due to a combination of rhabdo and drug use. #Hematochezia- resolved - Nurse reported maroon colored stool on 09/01- EGD 09/02 only with mild gastritis and distal esophagitis- MD witnessed maroon colored, grainy stool on 09/03. Rectal exam negative for external hemorrhoids or palpable internal hemorrhoids. Colonoscopy showed solitary rectal ulcer syndrome, bleeding likely from the rectal ulcer. - Protonix daily for regular ulcer PPx. #Bacteremia- Had fever on 08/27 - Blood culture (x1 unfortunately) from that day is growing coag negative staph, a common contaminant. Repeat blood culture negative.- D/Matias right IJ. But his femoral dialysis catheter may also be a source of infection -and now in fact his wound culture from the groin area where the dialysis catheter is, is growing positive Pseudomonas, Enterobacter, and VRE -Continue Levaquin and Zyvox - Follow-up ID recommendations -again Saurabh line was removed yesterday, follow-up culture results of the tip # acute respiratory failure- resolved, now on room air. - extubated 08/24, was likely secondary to polysubstance overdose resulting in multiorgan dysfunction; patient had subsequent severe metabolic acidosis with inadequate respiratory compensation-now oxygen levels stable - s/p antibiotic treatment for CAP earlier this admission -Monitor, continue oxygen supplementation as needed # Elevated troponin-now appears stable - CV consulted earlier this admission. Likely demand ischemia from drug use. - Will not treat per NSTEMI protocol, monitor, follow-up cardiology recommendations # transaminitis: -resolved -May be from shock liver or drug use.- Hep B, Hep C negative. LFTs have trended down. # Rhabdomyolysis - resolved # Coagulopathy- Resolved. # polysubstance abuse - Again patient was found to be positive for opioids, methamphetamine, marijuana and an elevated blood alcohol level. -Earlier this admission ordered for thiamine 300 mg IM daily times 3 days, further treatment as per the clinical course # DVT and GI prophylaxis: Protonix twice daily Dispo: Plan for ARU once patient is able to take a few steps on his own. Result Diagram: 09/18/18 0428 09/18/18 0428 Results 24hrs Laboratory Tests Test 09/17/18 13:07 09/17/18 17:44 09/17/18 20:15 09/18/18 04:28 Bedside Glucose 104 112 114 White Blood Count 12.0 #H Red Blood Count 3.75 L Hemoglobin 11.6 L Hematocrit 35.4 L Mean Corpuscular 94.4 Volume Mean Corpuscular 30.9 Hemoglobin Mean Corpuscular 32.8 Hemoglobin Concent Red Cell 14.7 H Distribution Width Platelet Count 401 Mean Platelet Volume 9.6 Immature 1.200 H Granulocytes % Neutrophils % 65.1 Lymphocytes % 16.5 Monocytes % 9.2 Eosinophils % 6.3 Basophils % 1.7 Nucleated Red Blood 0.2 H Cells % Immature 0.140 H Granulocytes # Neutrophils # 7.8 H Lymphocytes # 2.0 Monocytes # 1.1 H Eosinophils # 0.8 H Basophils # 0.2 H Nucleated Red Blood 0.0 Cells # Sodium Level 145 H Potassium Level 3.6 Chloride Level 104 Carbon Dioxide Level 25 Anion Gap 16 H Blood Urea Nitrogen 33 H Creatinine 1.10 Est Glomerular > 60 Filtrat Rate mL/min Glucose Level 106 Calcium Level 9.8 Phosphorus Level 3.8 Magnesium Level 1.6 L Test 09/18/18 07:57 09/18/18 11:52 Bedside Glucose 104 131 Subjective 24 Hr Interval Summary Free Text/Dictation Patient feeling well today. Denies anorexia, cough, SOB, dysuria, hematuria, diarrhea, abdominal pain. Exam/Review of Systems Vital Signs Vitals Vital Signs Date Temp Pulse Resp B/P (MAP) Pulse Ox O2 O2 Flow FiO2 Time Delivery Rate 09/18/18 98.2 62 18 124/77 100 Room Air 07:35 (93) Intake and Output 09/17/18 09/17/18 09/18/18 1515:00 23:00 07:00 IntakeIntake Total 1040 ml 610 ml 600 ml OutputOutput Total 200 ml 525 ml BalanceBalance 840 ml 85 ml 600 ml Exam Gen: Lying in bed, awake, alert. Eyes: Pupils equal round reactive to light, extraocular muscles intact HEENT: PERRL, moist mucous membranes, Card: Regular rate and rhythm no murmurs Pulm: CTA bilaterally, no crackles. Abd: Soft, nondistended. Ext: No cyanosis/clubbing/edema Medications Medications Current Medications Albuterol (Ventolin Hfa) 4 puff Q2H RESP THERAPY PRN INH SHORTNESS OF BREATH; Start 08/20/18 at 22:00 Ipratropium [place] (Atrovent Hfa) 4 puff Q2H RESP THERAPY PRN INH SHORTNESS OF BREATH; Start 08/20/18 at 22:00 Acetaminophen (Tylenol Liquid) 650 mg Q6H PRN PO PAIN LEVEL 1-3 OR FEVER Last administered on 09/10/18at 11:22; Admin Dose 650 MG; Start 08/20/18 at 22:00 Miscellaneous Information 1 ea NOTE XX ; Start 08/21/18 at 16:30 Glucose (Glutose) 15 gm Q15M PRN PO DECREASED GLUCOSE; Start 08/21/18 at 16:30 Glucose (Glutose) 22.5 gm Q15M PRN PO DECREASED GLUCOSE; Start 08/21/18 at 16:30 Dextrose (D50w Syringe) 25 ml Q15M PRN IV DECREASED GLUCOSE; Start 08/21/18 at 16:30 Dextrose (D50w Syringe) 50 ml Q15M PRN IV DECREASED GLUCOSE; Start 08/21/18 at 16:30 Glucagon (Glucagen) 1 mg Q15M PRN IM DECREASED GLUCOSE; Start 08/21/18 at 16:30 Glucose (Glutose) 15 gm Q15M PRN BUCCAL DECREASED GLUCOSE; Start 08/21/18 at 16:30 Metoprolol Tartrate (Lopressor) 25 mg BID PO Last administered on 09/18/18 09:31; Admin Dose 25 MG; Start 08/23/18 at 21:00 Epinephrine (Racepinephrine 2.25% (Neb)) 0.25 ml Q3H RESP THERAPY PRN HHN STRIDOR; Start 08/23/18 at 17:00 Ondansetron HCl (Zofran Inj) 4 mg Q6H PRN IV NAUSEA AND/OR VOMITING Last administered on 08/25/18at 21:47; Admin Dose 4 MG; Start 08/25/18 at 21:30 Diagnostic Test (Pha) (Accu-Chek) 1 ea 02 XX ; Start 08/27/18 at 02:00 Heparin Sodium (Porcine) (Heparin (5000 Units/1ml)) 5,000 unit Q8 SC Last administered on 09/01/18at 14:27; Admin Dose 5,000 UNIT; Start 08/29/18 at 14:00; Status Hold Albumin Human 50 ml @ 100 mls/hr DURING DIALYSIS PRN IV During HD. Last administered on 08/29/18 13:55; Admin Dose 100 MLS/HR; Start 08/29/18 at 12:30 Aspirin (Aspirin) 81 mg DAILY PO Last administered on 09/03/18at 08:37; Admin Dose 81 MG; Start 08/30/18 at 09:00; Status Hold Sucralfate (Carafate Susp) 1 gm QID PO Last administered on 09/18/18 09:30; Admin Dose 1 GM; Start 09/01/18 at 16:00 Pantoprazole (Protonix Iv) 40 mg BID@06,18 IV Last administered on 09/18/18 05:07; Admin Dose 40 MG; Start 09/01/18 at 18:00 Insulin Aspart (Novolog Insulin Pen) (Adult SC Insulin - Mild Algorithm)... AC MEALS AND BEDTIME SC Last administered on 09/12/18 12:51; Admin Dose 1 UNIT; Start 09/03/18 at 07:00 Sodium Chloride 1,000 ml @ 50 mls/hr Q20H IV Last administered on 09/17/18at 17:56; Admin Dose 50 MLS/HR; Start 09/13/18 at 09:00 Magnesium Sulfate 50 ml @ 25 mls/hr ONCE ONCE IVPB Last administered on 09/18/18at 10:57; Admin Dose 25 MLS/HR; Start 09/18/18 at 11:00; Stop 09/18/18 at 12:59 YUMIKO JC MD Sep 18, 2018 12:48
[2018-09-18 14:55] VITALS: BP 131/71; PULSE 85; RESP 18
[2018-09-18] MEDS: SOD CHLORIDE 0.45% 1,000 ML IV SCH (17:21)
[2018-09-18 19:28] VITALS: BP 125/80; PULSE 84; RESP 18
[2018-09-19] MEDS: ACCU-CHEK XX SCH (01:32)
[2018-09-19 02:00] VITALS: BP 134/66; PULSE 71; RESP 18
[2018-09-19] MEDS: PANTOPRAZOLE (EC) 40 MG TAB PO SCH (05:47)
[2018-09-19 07:31] VITALS: BP 129/79; PULSE 64; RESP 14
[2018-09-19] MEDS: INSULIN ASPART [NOVOLOG] 3 ML PEN SC SCH ×4 (08:50→20:51)
[2018-09-19] MEDS: SUCRALFATE (100 MG/ML) 10ML CUP PO SCH ×4 (08:50→20:43)
[2018-09-19] MEDS: METOPROLOL 25 MG TAB PO SCH ×2 (08:51→20:43)
--- NOTE | 2018-09-19 12:23 | PN ---
Date/Time of Note Date/Time of Note DATE: 09/19/18 TIME: Assessment/Plan VTE Prophylaxis Risk score (from Ns)>0 risk: 4 SCD applied (from Ns): No SCD contraindicated: other Pharmacological prophylaxis: heparin Lines/Catheters IV Catheter Type (from [facility]): Peripheral IV Urinary Cath still in place: No Assessment/Plan Hospital Course S: Patient had no fevers other acute events overnight. Tolerating diet. Having improved urine output. Seen by ID and renal teams earlier today. O: VS - see below PE: Gen: Lying in bed, a bit more alert, but still overall lethargic Eyes: Pupils equal round reactive to light, extraocular muscles intact HEENT: PERRL, moist mucous membranes, Card: Regular rate and rhythm no murmurs Pulm: CTA bilaterally, no crackles. Abd: Soft, nondistended. Ext: No cyanosis/clubbing/edema Neuro: Still weak overall Assessment/Plan: 33 yo man brought in found down with subsequent JULIAN secondary to rhabdomyolysis; positive for alcohol, methamphetamine, cannabis, opioids as well. #Encephalopathy and Polyneuropathy- Despite extubation on 08/24, he remains lethargic and weak.- Head CT 08/20 negative- Repeat CT on 08/31 shows some edema of the basal ganglia, confirmed on MRI, this likely represents residual toxic metabolic effect - TSH, ammonia, AM cortisol are normal. CK has normalized-also there is associated with proximal muscle weakness but intact sensation-MRI C spine was most notable for signal changes within the paraspinal musculature of C3-C4 through C5-C6... which is likely a sequelae of rhabdomyolysis. -Monitor, follow-up recommendations from neurology/neurosurgery -Reorient as needed -Continue physical therapy and occupational therapy - Plan for ARU when patient is able to take a few steps on his own. # Renal failure- resolved now- Oliguric renal failure with hyperkalemia (after potassium replacement), also presented with severe metabolic acidosis- Likely due to a combination of rhabdo and drug use. -Monitor for now #Hematochezia- resolved- Nurse reported maroon colored stool on 09/01- EGD 09/02 only with mild gastritis and distal esophagitis- MD witnessed maroon colored, grainy stool on 09/03. Rectal exam negative for external hemorrhoids or palpable internal hemorrhoids. Colonoscopy showed solitary rectal ulcer syndrome, bleeding likely from the rectal ulcer. -Continue Protonix daily for regular ulcer PPx. #Bacteremia- Had fever on 08/27 - Blood culture (x1 unfortunately) from that day is growing coag negative staph, a common contaminant. Repeat blood culture negative.- D/Matias right IJ. But his femoral dialysis catheter may also be a source of infection -and now in fact his wound culture from the groin area where the dialysis catheter is, is growing positive Pseudomonas, Enterobacter, and VRE -Continue Levaquin and Zyvox - Follow-up ID recommendations -again Saurabh line was removed yesterday, f ollow-up culture results of the tip # acute respiratory failure- resolved, now on room air. - extubated 08/24, was likely secondary to polysubstance overdose resulting in multiorgan dysfunction; patient had subsequent severe metabolic acidosis with inadequate respiratory compensation-now oxygen levels stable - s/p antibiotic treatment for CAP earlier this admission -Monitor, continue oxygen supplementation as needed # Elevated troponin-now appears stable- CV consulted earlier this admission. Likely demand ischemia from drug use. - Will not treat per NSTEMI protocol, monitor, follow-up cardiology recommendations # transaminitis: -resolved -May be from shock liver or drug use.- Hep B, Hep C negative. LFTs have trended down. -Monitor for now # Rhabdomyolysis -occurred earlier this admission, patient required ICU care at that time, now resolved -Monitor # Coagulopathy- Resolved. # polysubstance abuse - Again patient was found to be positive for opioids, methamphetamine, marijuana and an elevated blood alcohol level. -Earlier this admission ordered for thiamine 300 mg IM daily times 3 days, further treatment as per the clinical course # DVT and GI prophylaxis: Protonix twice daily Dispo: Plan for ARU once patient is able to take a few steps on his own. Result Diagram: 09/18/188 09/18/18427 Results 24hrs Laboratory Tests Test 09/18/18 17:59 09/18/18 20:36 09/19/18 08:50 Bedside Glucose 106 143 98 Exam/Review of Systems Vital Signs Vitals Vital Signs Date Temp Pulse Resp B/P (MAP) Pulse Ox O2 O2 Flow FiO2 Time Delivery Rate 09/19/18 98.3 64 14 129/79 99 07:31 (96) 09/18/18 Room Air 14:55 Intake and Output 09/18/18 09/18/18 09/19/18 1515:00 23:00 07:00 IntakeIntake Total 720 ml 1330 ml 0 ml BalanceBalance 720 ml 1330 ml 0 ml Medications Medications Current Medications Albuterol (Ventolin Hfa) 4 puff Q2H RESP THERAPY PRN INH SHORTNESS OF BREATH; Start 08/20/18 at 22:00 Ipratropium [place] (Atrovent Hfa) 4 puff Q2H RESP THERAPY PRN INH SHORTNESS OF BREATH; Start 08/20/18 at 22:00 Acetaminophen (Tylenol Liquid) 650 mg Q6H PRN PO PAIN LEVEL 1-3 OR FEVER Last administered on 09/10/18at 11:22; Admin Dose 650 MG; Start 08/20/18 at 22:00 Miscellaneous Information 1 ea NOTE XX ; Start 08/21/18 at 16:30 Glucose (Glutose) 15 gm Q15M PRN PO DECREASED GLUCOSE; Start 08/21/18 at 16:30 Glucose (Glutose) 22.5 gm Q15M PRN PO DECREASED GLUCOSE; Start 08/21/18 at 16:30 Dextrose (D50w Syringe) 25 ml Q15M PRN IV DECREASED GLUCOSE; Start 08/21/18 at 16:30 Dextrose (D50w Syringe) 50 ml Q15M PRN IV DECREASED GLUCOSE; Start 08/21/18 at 16:30 Glucagon (Glucagen) 1 mg Q15M PRN IM DECREASED GLUCOSE; Start 08/21/18 at 16:30 Glucose (Glutose) 15 gm Q15M PRN BUCCAL DECREASED GLUCOSE; Start 08/21/18 at 16:30 Metoprolol Tartrate (Lopressor) 25 mg BID PO Last administered on 09/19/18at 08:51; Admin Dose 25 MG; Start 08/23/18 at 21:00 Epinephrine (Racepinephrine 2.25% (Neb)) 0.25 ml Q3H RESP THERAPY PRN HHN STRIDOR; Start 08/23/18 at 17:00 Ondansetron HCl (Zofran Inj) 4 mg Q6H PRN IV NAUSEA AND/OR VOMITING Last administered on 08/25/18at 21:47; Admin Dose 4 MG; Start 08/25/18 at 21:30 Diagnostic Test (Pha) (Accu-Chek) 1 ea 02 XX ; Start 08/27/18 at 02:00 Heparin Sodium (Porcine) (Heparin (5000 Units/1ml)) 5,000 unit Q8 SC Last administered on 09/01/18at 14:27; Admin Dose 5,000 UNIT; Start 08/29/18 at 14:00; Status Hold Albumin Human 50 ml @ 100 mls/hr DURING DIALYSIS PRN IV During HD. Last administered on 08/29/18at 13:55; Admin Dose 100 MLS/HR; Start 08/29/18 at 12: 30 Aspirin (Aspirin) 81 mg DAILY PO Last administered on 09/03/18at 08:37; Admin Dose 81 MG; Start 08/30/18 at 09:00; Status Hold Sucralfate (Carafate Susp) 1 gm QID PO Last administered on 09/19/18at 08:50; Admin Dose 1 GM; Start 09/01/18 at 16:00 Insulin Aspart (Novolog Insulin Pen) (Adult SC Insulin - Mild Algorithm)... AC MEALS AND BEDTIME SC Last administered on 09/12/18at 12:51; Admin Dose 1 UNIT; Start 09/03/18 at 07:00 Sodium Chloride 1,000 ml @ 50 mls/hr Q20H IV Last administered on 09/18/18 17:21; Admin Dose 50 MLS/HR; Start 09/13/18 at 09:00 Pantoprazole (Protonix Tab) 40 mg DAILY@06 PO Last administered on 09/19/18 05:47; Admin Dose 40 MG; Start 09/19/18 at 06:00 CINTIA ESPINOSA Sep 19, 2018 12:23
[2018-09-19] MEDS: SOD CHLORIDE 0.45% 1,000 ML IV SCH (13:00)
[2018-09-19 14:27] VITALS: BP 127/80; PULSE 74; RESP 16
--- NOTE | 2018-09-19 14:29 | CONS ---
Date/Time of Note Date/Time of Note DATE: 09/19/18 TIME: 14:28 Assessment/Plan Assessment/Plan Hospital Course Patient is alert feels good sitting comfortably in chair no fevers overnight no labs today he is off antibiotics Physical examination: Well-nourished well-developed middle-aged man who is in no distress. Head atraumatic normocephalic sclera nonicteric. Neck is supple chest rise symmetrical breath sounds diminished bases. Heart: S1-S2, tachycardic. Abdomen soft bowel sounds present. Extremities with without cyanosis Assessment: 1. Status post septic shock 2. Status post Gram-positive cocci bacteremia 3. Status post acute encephalopathy 4. Status post acute hypoxemic respiratory failure 5. Pulmonary edema 6. Status post acute renal failure requiring hemodialysis, now off 7. Resolving anasarca 8. History of polysubstance abuse 9. Muscle weakness Plan: Remains stable, off abx Result Diagram: 09/18/18 0428 09/18/18 0428 Results 24hrs Laboratory Tests Test 09/18/18 17:59 09/18/18 20:36 09/19/18 08:50 09/19/18 12:58 Bedside Glucose 106 143 98 92 Consultation Date/Type/Reason Admit Date/Time Aug 20, 2018 at 21:39 Initial Consult Date 08/21/18 Type of Consult id Requesting Provider: YUMIKO JC MD Exam/Review of Systems Vital Signs Vitals Vital Signs Date Temp Pulse Resp B/P (MAP) Pulse Ox O2 O2 Flow FiO2 Time Delivery Rate 09/19/18 98.3 64 14 129/79 99 07:31 (96) 09/18/18 Room Air 14:55 Intake and Output 09/18/18 09/18/18 09/19/18 1515:00 23:00 07:00 IntakeIntake Total 720 ml 1330 ml 0 ml BalanceBalance 720 ml 1330 ml 0 ml Medications Medications Current Medications Albuterol (Ventolin Hfa) 4 puff Q2H RESP THERAPY PRN INH SHORTNESS OF BREATH; Start 08/20/18 at 22:00 Ipratropium [place] (Atrovent Hfa) 4 puff Q2H RESP THERAPY PRN INH SHORTNESS OF BREATH; Start 08/20/18 at 22:00 Acetaminophen (Tylenol Liquid) 650 mg Q6H PRN PO PAIN LEVEL 1-3 OR FEVER Last administered on 09/10/18 11:22; Admin Dose 650 MG; Start 08/20/18 at 22:00 Miscellaneous Information 1 ea NOTE XX ; Start 08/21/18 at 16:30 Glucose (Glutose) 15 gm Q15M PRN PO DECREASED GLUCOSE; Start 08/21/18 at 16:30 Glucose (Glutose) 22.5 gm Q15M PRN PO DECREASED GLUCOSE; Start 08/21/18 at 16:30 Dextrose (D50w Syringe) 25 ml Q15M PRN IV DECREASED GLUCOSE; Start 08/21/18 at 16:30 Dextrose (D50w Syringe) 50 ml Q15M PRN IV DECREASED GLUCOSE; Start 08/21/18 at 16:30 Glucagon (Glucagen) 1 mg Q15M PRN IM DECREASED GLUCOSE; Start 08/21/18 at 16:30 Glucose (Glutose) 15 gm Q15M PRN BUCCAL DECREASED GLUCOSE; Start 08/21/18 at 16:30 Metoprolol Tartrate (Lopressor) 25 mg BID PO Last administered on 09/19/18at 08:51; Admin Dose 25 MG; Start 08/23/18 at 21:00 Epinephrine (Racepinephrine 2.25% (Neb)) 0.25 ml Q3H RESP THERAPY PRN HHN STRIDOR; Start 08/23/18 at 17:00 Ondansetron HCl (Zofran Inj) 4 mg Q6H PRN IV NAUSEA AND/OR VOMITING Last administered on 08/25/18at 21:47; Admin Dose 4 MG; Start 08/25/18 at 21:30 Diagnostic Test (Pha) (Accu-Chek) 1 ea 02 XX ; Start 08/27/18 at 02:00 Heparin Sodium (Porcine) (Heparin (5000 Units/1ml)) 5,000 unit Q8 SC Last ad ministered on 09/01/18at 14:27; Admin Dose 5,000 UNIT; Start 08/29/18 at 14:00; Status Hold Albumin Human 50 ml @ 100 mls/hr DURING DIALYSIS PRN IV During HD. Last administered on 08/29/18at 13:55; Admin Dose 100 MLS/HR; Start 08/29/18 at 12:30 Aspirin (Aspirin) 81 mg DAILY PO Last administered on 09/03/18at 08:37; Admin Dose 81 MG; Start 08/30/18 at 09:00; Status Hold Sucralfate (Carafate Susp) 1 gm QID PO Last administered on 09/19/18 12:59; Admin Dose 1 GM; Start 09/01/18 at 16:00 Insulin Aspart (Novolog Insulin Pen) (Adult SC Insulin - Mild Algorithm)... AC MEALS AND BEDTIME SC Last administered on 09/12/18 12:51; Admin Dose 1 UNIT; Start 09/03/18 at 07:00 Sodium Chloride 1,000 ml @ 50 mls/hr Q20H IV Last administered on 09/19/18 13:00; Admin Dose 50 MLS/HR; Start 09/13/18 at 09:00 Pantoprazole (Protonix Tab) 40 mg DAILY@06 PO Last administered on 09/19/18at 05:47; Admin Dose 40 MG; Start 09/19/18 at 06:00 BRIANNE COYLE NP Sep 19, 2018 14:29
--- NOTE | 2018-09-19 15:28 | CONS ---
Date/Time of Note Date/Time of Note DATE: 09/19/18 TIME: 15:27 Assessment/Plan Assessment/Plan Assessment/Plan Acute respiratory failure status post extubation Low normal left ventricular ejection fraction 50% Sepsis Acute kidney injury, was on hemodialysis Myocardial infarction, likely type II Encephalopathy GI bleed Liver dysfunction Illicit drug use -Off aspirin secondary to GI bleed. Continue beta-kishan as tolerated. No new cardiac orders at the current time Result Diagram: 09/18/18 0428 09/18/18 0428 Results 24hrs Laboratory Tests Test 09/18/18 17:59 09/18/18 20:36 09/19/18 08:50 09/19/18 12:58 Bedside Glucose 106 143 98 92 Consultation Date/Type/Reason Admit Date/Time Aug 20, 2018 at 21:39 Initial Consult Date 08/21/18 Type of Consult cv Requesting Provider: YUMIKO JC MD 24 HR Interval Summary Free Text/Dictation Patient seen and examined. No shortness of breath Exam/Review of Systems Vital Signs Vitals Vital Signs Date Temp Pulse Resp B/P (MAP) Pulse Ox O2 O2 Flow FiO2 Time Delivery Rate 09/19/18 97.6 74 16 127/80 100 14:27 (96) 09/18/18 Room Air 14:55 Intake and Output 09/18/18 09/18/18 09/19/18 1515:00 23:00 07:00 IntakeIntake Total 720 ml 1330 ml 0 ml BalanceBalance 720 ml 1330 ml 0 ml Exam Awake, no apparent distress, following commands Head: normocephalic Respiratory: other (Coarse breath sounds bilaterally, no wheezing) Cardiovascular: regular rate and rhythm (S1-S2 heard) Gastrointestinal: soft, non-tender, bowel sounds Extremities: edema Medications Medications Current Medications Albuterol (Ventolin Hfa) 4 puff Q2H RESP THERAPY PRN INH SHORTNESS OF BREATH; Start 08/20/18 at 22:00 Ipratropium [place] (Atrovent Hfa) 4 puff Q2H RESP THERAPY PRN INH SHORTNESS OF BREATH; Start 08/20/18 at 22:00 Acetaminophen (Tylenol Liquid) 650 mg Q6H PRN PO PAIN LEVEL 1-3 OR FEVER Last administered on 09/10/18at 11:22; Admin Dose 650 MG; Start 08/20/18 at 22:00 Miscellaneous Information 1 ea NOTE XX ; Start 08/21/18 at 16:30 Glucose (Glutose) 15 gm Q15M PRN PO DECREASED GLUCOSE; Start 08/21/18 at 16:30 Glucose (Glutose) 22.5 gm Q15M PRN PO DECREASED GLUCOSE; Start 08/21/18 at 16:30 Dextrose (D50w Syringe) 25 ml Q15M PRN IV DECREASED GLUCOSE; Start 08/21/18 at 16:30 Dextrose (D50w Syringe) 50 ml Q15M PRN IV DECREASED GLUCOSE; Start 08/21/18 at 16:30 Glucagon (Glucagen) 1 mg Q15M PRN IM DECREASED GLUCOSE; Start 08/21/18 at 16:30 Glucose (Glutose) 15 gm Q15M PRN BUCCAL DECREASED GLUCOSE; Start 08/21/18 at 16:30 Metoprolol Tartrate (Lopressor) 25 mg BID PO Last administered on 09/19/18at 08:51; Admin Dose 25 MG; Start 08/23/18 at 21:00 Epinephrine (Racepinephrine 2.25% (Neb)) 0.25 ml Q3H RESP THERAPY PRN HHN STRIDOR; Start 08/23/18 at 17:00 Ondansetron HCl (Zofran Inj) 4 mg Q6H PRN IV NAUSEA AND/OR VOMITING Last administered on 08/25/18at 21:47; Admin Dose 4 MG; Start 08/25/18 at 21:30 Diagnostic Test (Pha) (Accu-Chek) 1 ea 02 XX ; Start 08/27/18 at 02:00 Heparin Sodium (Porcine) (Heparin (5000 Units/1ml)) 5,000 unit Q8 SC Last administered on 09/01/18at 14:27; Admin Dose 5,000 UNIT; Start 08/29/18 at 14:00; Status Hold Albumin Human 50 ml @ 100 mls/hr DURING DIALYSIS PRN IV During HD. Last administered on 08/29/18at 13:55; Admin Dose 100 MLS/HR; Start 08/29/18 at 12:30 Aspirin (Aspirin) 81 mg DAILY PO Last administered on 09/03/18at 08:37; Admin Dose 81 MG; Start 08/30/18 at 09:00; Status Hold Sucralfate (Carafate Susp) 1 gm QID PO Last administered on 09/19/18 12:59; Admin Dose 1 GM; Start 09/01/18 at 16:00 Insulin Aspart (Novolog Insulin Pen) (Adult SC Insulin - Mild Algorithm)... AC MEALS AND BEDTIME SC Last administered on 09/12/18at 12:51; Admin Dose 1 UNIT; Start 09/03/18 at 07:00 Sodium Chloride 1,000 ml @ 50 mls/hr Q20H IV Last administered on 09/19/18 13:00; Admin Dose 50 MLS/HR; Start 09/13/18 at 09:00 Pantoprazole (Protonix Tab) 40 mg DAILY@06 PO Last administered on 09/19/18 05:47; Admin Dose 40 MG; Start 09/19/18 at 06:00 Kana Phoenix DO Sep 19, 2018 15:28
--- NOTE | 2018-09-19 15:43 | CONS ---
Assessment/Plan Assessment/Plan Hospital Course A: 33 yo M with uncertain PMH who presents for evaluation of altered mental status..for which neurology is consulted.. UDS + for amphetamines, opioids, EtOH, cannabis He was reported to be severely hypoglycemic in the field. JULIAN+ CK++++ Clinically consistent with an acute and multifactorial toxic-metabolic encephalopathy. Stroke is unlikely. Seizure is unlikely. CTH (08/20) was unrevealing. Repeat CTH was most notable for bilateral globus pallidus edema MRI is notable for sequelae of a toxic-metabolic insult.. As an aside, he has profound 4-limb weakness on exam, which does not appear to be improving w/ his mental status.. MRI C spine was most notable for signal changes within the paraspinal m usculature of C3-C4 through C5-C6... which is a likely sequelae of rhabdomyolysis. P: Ok to defer additional neuroimaging for now. Cont medical management per primary Reorient as necessary Limit sedating medications where possible PT/OT as tolerated Will follow clinically, to make further neurologic recommendations as necessary Result Diagram: 09/18/18 0428 09/18/18 0428 Results 24hrs Laboratory Tests Test 09/18/18 17:59 09/18/18 20:36 09/19/18 08:50 09/19/18 12:58 Bedside Glucose 106 143 98 92 Consultation Date/Type/Reason Admit Date/Time Aug 20, 2018 at 21:39 Type of Consult Neurology Reason for Consultation lethargy/weakness Requesting Provider: YUMIKO JC MD Date/Time of Note DATE: 09/19/18 TIME: 15:43 24 HR Interval Summary Free Text/Dictation Continues medsurg monitoring. Pt reportedly stood at edge of bed today with physical therapy. Exam Vital Signs Vitals Vital Signs Date Temp Pulse Resp B/P (MAP) Pulse Ox O2 O2 Flow FiO2 Time Delivery Rate 09/19/18 97.6 74 16 127/80 100 14:27 (96) 09/18/18 Room Air 14:55 Intake and Output 09/18/18 09/18/18 09/19/18 1515:00 23:00 07:00 IntakeIntake Total 720 ml 1330 ml 0 ml BalanceBalance 720 ml 1330 ml 0 ml Exam PE: Gen Appearance: No Apparent Distress HEENT: Normocephalic Cardiovascular: Regular rate Lungs: Clear bilaterally Abdomen: Soft Extremities: Dry NE: The patient was alert and oriented. Language was normal. Fund of knowledge was adequate.. Pupils were equal and reactive to light. There was no afferent pupillary defect. Visual lehman were normal. Funduscopic examination was limited. Extra-ocular movements were full. Ptosis was absent. There was no nystagmus. Facial sensation was normal. Face was symmetric with normal strength. Hearing was intact. Palate movements were normal. Neck strength was normal. There was normal tongue bulk and speed of movement. Tone was normal. Muscle bulk was normal. I did not see fasciculations. Arms and legs were still weak though antigravity, prox> dist, R > L... greatly improved from prior Vibration sensation was normal. Temperature and pinprick sensation was normal. Rapid alternating movements were normal. There was no dysmetria. There was no intention tremor. Gait was deferred due to bedrest. Arm and leg reflexes were asymmetric. Phillips's sign was absent. Plantar responses were flexor. TIN GUIDO NP Sep 19, 2018 15:43 GEOVANNI BANKS Sep 20, 2018 06:52
[2018-09-19 20:07] VITALS: BP 137/86; PULSE 70; RESP 18
[2018-09-20] MEDS: ACCU-CHEK XX SCH (01:07)
[2018-09-20 02:11] VITALS: BP 123/73; PULSE 66; RESP 18
[2018-09-20] MEDS: PANTOPRAZOLE (EC) 40 MG TAB PO SCH (05:42)
[2018-09-20] MEDS: INSULIN ASPART [NOVOLOG] 3 ML PEN SC SCH ×4 (08:05→21:00)
[2018-09-20 08:28] VITALS: BP 133/85; PULSE 71; RESP 20
[2018-09-20] MEDS: SOD CHLORIDE 0.45% 1,000 ML IV SCH (08:55)
[2018-09-20] MEDS: METOPROLOL 25 MG TAB PO SCH ×2 (08:56→21:03)
[2018-09-20] MEDS: SUCRALFATE (100 MG/ML) 10ML CUP PO SCH ×4 (08:56→22:12)
--- NOTE | 2018-09-20 12:25 | CONS ---
Assessment/Plan Assessment/Plan Hospital Course A: 33 yo M with uncertain PMH who presents for evaluation of altered mental status..for which neurology is consulted.. UDS + for amphetamines, opioids, EtOH, cannabis He was reported to be severely hypoglycemic in the field. JULIAN+ CK++++ Clinically consistent with an acute and multifactorial toxic-metabolic encephalopathy. Stroke is unlikely. Seizure is unlikely. CTH (08/20) was unrevealing. Repeat CTH was most notable for bilateral globus pallidus edema MRI is notable for sequelae of a toxic-metabolic insult.. As an aside, he has profound 4-limb weakness on exam, which does not appear to be improving w/ his mental status.. MRI C spine was most notable for signal changes within the paraspinal m usculature of C3-C4 through C5-C6... which is a likely sequelae of rhabdomyolysis. P: Ok to defer additional neuroimaging for now. Cont medical management per primary Reorient as necessary Limit sedating medications where possible PT/OT as tolerated Will follow clinically, to make further neurologic recommendations as necessary Result Diagram: 09/20/18 0529 09/20/18 0529 Results 24hrs Laboratory Tests Test 09/19/18 12:58 09/19/18 18:00 09/19/18 20:50 09/20/18 05:29 Bedside Glucose 92 81 93 White Blood Count 10.3 Red Blood Count 3.98 L Hemoglobin 12.3 L Hematocrit 37.5 L Mean Corpuscular 94.2 Volume Mean Corpuscular 30.9 Hemoglobin Mean Corpuscular 32.8 Hemoglobin Concent Red Cell 15.0 H Distribution Width Platelet Count 398 Mean Platelet Volume 9.3 Immature 1.600 H Granulocytes % Neutrophils % 61.3 Lymphocytes % 20.4 Monocytes % 7.8 Eosinophils % 7.1 H Basophils % 1.8 Nucleated Red Blood 0.0 Cells % Immature 0.160 H Granulocytes # Neutrophils # 6.3 Lymphocytes # 2.1 Monocytes # 0.8 Eosinophils # 0.7 H Basophils # 0.2 H Nucleated Red Blood 0.0 Cells # Sodium Level 144 Potassium Level 3.6 Chloride Level 104 Carbon Dioxide Level 26 Anion Gap 14 H Blood Urea Nitrogen 23 H Creatinine 0.87 Est Glomerular > 60 Filtrat Rate mL/min Glucose Level 110 Calcium Level 9.9 Phosphorus Level 4.2 Magnesium Level 1.5 L Test 09/20/18 08:04 Bedside Glucose 98 Consultation Date/Type/Reason Admit Date/Time Aug 20, 2018 at 21:39 Type of Consult Neurology Reason for Consultation lethargy/weakness Requesting Provider: YUMIKO JC MD Date/Time of Note DATE: 09/20/18 TIME: 12:25 24 HR Interval Summary Free Text/Dictation Continues medsurg monitoring. No acute events or changes in pt condition reported. Exam Vital Signs Vitals Vital Signs Date Temp Pulse Resp B/P (MAP) Pulse Ox O2 O2 Flow FiO2 Time Delivery Rate 09/20/18 98.6 71 20 133/85 99 Room Air 08:28 (101) Intake and Output 09/19/18 09/19/18 09/20/18 1515:00 23:00 07:00 IntakeIntake Total 1700 ml 690 ml 550 ml BalanceBalance 1700 ml 690 ml 550 ml Exam PE: Gen Appearance: No Apparent Distress HEENT: Normocephalic Cardiovascular: Regular rate Lungs: Clear bilaterally Abdomen: Soft Extremities: Dry NE: The patient was alert and oriented. Language was normal. Fund of knowledge was adequate.. Pupils were equal and reactive to light. There was no afferent pupillary defect. Visual lehman were normal. Funduscopic examination was limited. Extra-ocular movements were full. Ptosis was absent. There was no nystagmus. Facial sensation was normal. Face was symmetric with normal strength. Hearing was intact. Palate movements were normal. Neck strength was normal. There was normal tongue bulk and speed of movement. Tone was normal. Muscle bulk was normal. I did not see fasciculations. Arms and legs were still weak though antigravity, prox> dist, R > L... greatly improved from prior Vibration sensation was normal. Temperature and pinprick sensation was normal. Rapid alternating movements were normal. There was no dysmetria. There was no intention tremor. Gait was deferred due to bedrest. Arm and leg reflexes were asymmetric. Phillips's sign was absent. Plantar responses were flexor. TIN GUIDO NP Sep 20, 2018 12:25
--- NOTE | 2018-09-20 13:44 | PN ---
Date/Time of Note Date/Time of Note DATE: 09/20/18 TIME: 13:42 Assessment/Plan VTE Prophylaxis Risk score (from Ns)>0 risk: 3 SCD applied (from Ns): No SCD contraindicated: other Pharmacological prophylaxis: heparin Lines/Catheters IV [facility]ter [facility] (from [facility]): Peripheral IV Urinary Cath still in place: No Assessment/Plan Hospital Course S: Patient worked with physical therapy earlier today. O: VS - see below PE: Gen: Lying in bed, a bit more alert, but still overall lethargic Eyes: Pupils equal round reactive to light, extraocular muscles intact HEENT: PERRL, moist mucous membranes, Card: Regular rate and rhythm no murmurs Pulm: CTA bilaterally, no crackles. Abd: Soft, nondistended. Ext: No cyanosis/clubbing/edema Neuro: Still weak overall Assessment/Plan: 33 yo man brought in found down with subsequent JULIAN secondary to rhabdomyolysis; positive for alcohol, methamphetamine, cannabis, opioids as well. #Encephalopathy and Polyneuropathy- Despite extubation on 08/24, he remains lethargic and weak.- Head CT 08/20 negative- Repeat CT on 08/31 shows some edema of the basal ganglia, confirmed on MRI, this likely represents residual toxic metabolic effect - TSH, ammonia, AM cortisol are normal. CK has normalized-also there is associated with proximal muscle weakness but intact sensation-MRI C s [place] was most notable for signal changes within the paraspinal musculature of C3-C4 through C5-C6... which is likely a sequelae of rhabdomyolysis. -Monitor, follow-up recommendations from neurology/neurosurgery -Reorient as needed -Continue physical therapy and occupational therapy - Plan for ARU when patient is able to take a few steps on his own. # Renal failure- resolved now as BUN and creatinine levels are back to normal, patient has adequate urine output- Oliguric renal failure with hyperkalemia (after potassium replacement), also presented with severe metabolic acidosis- Likely due to a combination of rhabdo and drug use. -Monitor for now #Hematochezia- resolved- Nurse reported maroon colored stool on 09/01- EGD 09/02 only with mild gastritis and distal esophagitis- MD witnessed maroon colored, grainy stool on 09/03. Rectal exam negative for external hemorrhoids or palpable internal hemorrhoids. Colonoscopy showed solitary rectal ulcer syndrome, bleeding likely from the rectal ulcer. -Continue Protonix daily for regular ulcer PPx. #Bacteremia- Had fever on 08/27 - Blood culture (x1 unfortunately) from that day is growing coag negative staph, a common contaminant. Repeat blood culture negative.- D/Matias right IJ. But his femoral dialysis catheter may also be a source of infection -and now in fact his wound culture from the groin area where the dialysis catheter is, grew positive Pseudomonas, Enterobacter, and VRE. Status post treatment with antibiotics -Monitor, follow-up ID recommendations -again Saurabh line was removed earlier this admission, follow-up culture results of the tip # acute respiratory failure- resolved, now on room air. - extubated 08/24, was likely secondary to polysubstance overdose resulting in multiorgan dysfunction; patient had subsequent severe metabolic acidosis with inadequate respiratory compensation-now oxygen levels stable - s/p antibiotic treatment for CAP earlier this admission -Monitor, continue oxygen supplementation as needed # Elevated troponin-now appears stable- CV consulted earlier this admission. Likely demand ischemia from drug use. - Will not treat per NSTEMI protocol, monitor, follow-up cardiology recommendations # transaminitis: -resolved -May be from shock liver or drug use.- Hep B, Hep C negative. LFTs have trended down. -Monitor for now # Rhabdomyolysis -occurred earlier this admission, patient required ICU care at that time, now resolved -Monitor # Coagulopathy- Resolved. # polysubstance abuse - Again patient was found to be positive for opioids, methamphetamine, marijuana and an elevated blood alcohol level. -Earlier this admission ordered for thiamine 300 mg IM daily times 3 days, further treatment as per the clinical course # DVT and GI prophylaxis: Protonix twice daily Dispo: Plan for ARU once patient is able to take a few steps on his own. Result Diagram: 09/20/18 0529 09/20/1829 Results 24hrs Laboratory Tests Test 09/19/18 18:00 09/19/18 20:50 09/20/18 05:29 09/20/18 08:04 Bedside Glucose 81 93 98 White Blood Count 10.3 Red Blood Count 3.98 L Hemoglobin 12.3 L Hematocrit 37.5 L Mean Corpuscular 94.2 Volume Mean Corpuscular 30.9 Hemoglobin Mean Corpuscular 32.8 Hemoglobin Concent Red Cell 15.0 H Distribution Width Platelet Count 398 Mean Platelet Volume 9.3 Immature 1.600 H Granulocytes % Neutrophils % 61.3 Lymphocytes % 20.4 Monocytes % 7.8 Eosinophils % 7.1 H Basophils % 1.8 Nucleated Red Blood 0.0 Cells % Immature 0.160 H Granulocytes # Neutrophils # 6.3 Lymphocytes # 2.1 Monocytes # 0.8 Eosinophils # 0.7 H Basophils # 0.2 H Nucleated Red Blood 0.0 Cells # Sodium Level 144 Potassium Level 3.6 Chloride Level 104 Carbon Dioxide Level 26 Anion Gap 14 H Blood Urea Nitrogen 23 H Creatinine 0.87 Est Glomerular > 60 Filtrat Rate mL/min Glucose Level 110 Calcium Level 9.9 Phosphorus Level 4.2 Magnesium Level 1.5 L Test 09/20/18 12:35 Bedside Glucose 94 Exam/Review of Systems Vital Signs Vitals Vital Signs Date Temp Pulse Resp B/P (MAP) Pulse Ox O2 O2 Flow FiO2 Time Delivery Rate 09/20/18 98.6 71 20 133/85 99 Room Air 08:28 (101) Intake and Output 09/19/18 09/19/18 09/20/18 1515:00 23:00 07:00 IntakeIntake Total 1700 ml 690 ml 550 ml BalanceBalance 1700 ml 690 ml 550 ml Medications Medications Current Medications Albuterol (Ventolin Hfa) 4 puff Q2H RESP THERAPY PRN INH SHORTNESS OF BREATH; Start 08/20/18 at 22:00 Ipratropium [place] (Atrovent Hfa) 4 puff Q2H RESP THERAPY PRN INH SHORTNESS OF BREATH; Start 08/20/18 at 22:00 Acetaminophen (Tylenol Liquid) 650 mg Q6H PRN PO PAIN LEVEL 1-3 OR FEVER Last administered on 09/10/18at 11:22; Admin Dose 650 MG; Start 08/20/18 at 22:00 Miscellaneous Information 1 ea NOTE XX ; Start 08/21/18 at 16:30 Glucose (Glutose) 15 gm Q15M PRN PO DECREASED GLUCOSE; Start 08/21/18 at 16:30 Glucose (Glutose) 22.5 gm Q15M PRN PO DECREASED GLUCOSE; Start 08/21/18 at 16:30 Dextrose (D50w Syringe) 25 ml Q15M PRN IV DECREASED GLUCOSE; Start 08/21/18 at 16:30 Dextrose (D50w Syringe) 50 ml Q15M PRN IV DECREASED GLUCOSE; Start 08/21/18 at 16:30 Glucagon (Glucagen) 1 mg Q15M PRN IM DECREASED GLUCOSE; Start 08/21/18 at 16:30 Glucose (Glutose) 15 gm Q15M PRN BUCCAL DECREASED GLUCOSE; Start 08/21/18 at 16:30 Metoprolol Tartrate (Lopressor) 25 mg BID PO Last administered on 09/20/18 08:56; Admin Dose 25 MG; Start 08/23/18 at 21:00 Epinephrine (Racepinephrine 2.25% (Neb)) 0.25 ml Q3H RESP THERAPY PRN HHN STRIDOR; Start 08/23/18 at 17:00 Ondansetron HCl (Zofran Inj) 4 mg Q6H PRN IV NAUSEA AND/OR VOMITING Last administered on 08/25/18at 21:47; Admin Dose 4 MG; Start 08/25/18 at 21:30 Diagnostic Test (Pha) (Accu-Chek) 1 ea 02 XX ; Start 08/27/18 at 02:00 Heparin Sodium (Porcine) (Heparin (5000 Units/1ml)) 5,000 unit Q8 SC Last administered on 09/01/18at 14:27; Admin Dose 5,000 UNIT; Start 08/29/18 at 14:00; Status Hold Albumin Human 50 ml @ 100 mls/hr DURING DIALYSIS PRN IV During HD. Last administered on 08/29/18at 13:55; Admin Dose 100 MLS/HR; Start 08/29/18 at 12:30 Aspirin (Aspirin) 81 mg DAILY PO Last administered on 09/03/18at 08:37; Admin Dose 81 MG; Start 08/30/18 at 09:00; Status Hold Sucralfate (Carafate Susp) 1 gm QID PO Last administered on 09/20/18 08:56; Admin Dose 1 GM; Start 09/01/18 at 16:00 Insulin Aspart (Novolog Insulin Pen) (Adult SC Insulin - Mild Algorithm)... AC MEALS AND BEDTIME SC Last administered on 09/12/18 12:51; Admin Dose 1 UNIT; Start 09/03/18 at 07:00 Sodium Chloride 1,000 ml @ 50 mls/hr Q20H IV Last administered on 09/20/18 08:55; Admin Dose 50 MLS/HR; Start 09/13/18 at 09:00 Pantoprazole (Protonix Tab) 40 mg DAILY@06 PO Last administered on 09/20/18at 05:42; Admin Dose 40 MG; Start 09/19/18 at 06:00 Magnesium Sulfate 50 ml @ 25 mls/hr ONCE ONCE IVPB ; Start 09/20/18 at 14:30; Stop 09/20/18 at 16:29 CINTIA ESPINOSA Sep 20, 2018 13:44
[2018-09-20] MEDS ORDERED: MAGNESIUM SULFATE 2 GM/50 ML 50 ML IVPB ONE (14:30)
[2018-09-20 14:45] VITALS: BP 136/85; PULSE 68; RESP 20
[2018-09-20 19:28] VITALS: BP 130/83; PULSE 67; RESP 18
[2018-09-21 01:19] VITALS: BP 129/87; PULSE 68; RESP 18
[2018-09-21] MEDS: ACCU-CHEK XX SCH (02:00)
[2018-09-21] MEDS: SOD CHLORIDE 0.45% 1,000 ML IV SCH (05:46)
[2018-09-21] MEDS: PANTOPRAZOLE (EC) 40 MG TAB PO SCH (05:46)
[2018-09-21] MEDS: INSULIN ASPART [NOVOLOG] 3 ML PEN SC SCH ×4 (07:00→20:27)
[2018-09-21 07:55] VITALS: BP 136/83; PULSE 67; RESP 16
[2018-09-21] MEDS: SUCRALFATE (100 MG/ML) 10ML CUP PO SCH ×4 (09:19→20:22)
[2018-09-21] MEDS: METOPROLOL 25 MG TAB PO SCH ×2 (09:19→20:22)
--- NOTE | 2018-09-21 11:37 | PN ---
Date/Time of Note Date/Time of Note DATE: 09/21/18 TIME: 11:36 Assessment/Plan VTE Prophylaxis Risk score (from Ns)>0 risk: 3 SCD applied (from Ns): No SCD contraindicated: other Pharmacological prophylaxis: heparin Lines/Catheters IV Catheter Type (from [facility]): Peripheral IV Urinary Cath still in place: No Assessment/Plan Hospital Course S: Patient had no acute events overnight. O: VS - see below PE: Gen: Lying in bed, a bit more alert, but still overall lethargic Eyes: Pupils equal round reactive to light, extraocular muscles intact HEENT: PERRL, moist mucous membranes, Card: Regular rate and rhythm no murmurs Pulm: CTA bilaterally, no crackles. Abd: Soft, nondistended. Ext: No cyanosis/clubbing/edema Neuro: Still weak overall Assessment/Plan: 33 yo man brought in found down with subsequent JULIAN secondary to rhabdomyolysis; positive for alcohol, methamphetamine, cannabis, opioids as well. #Encephalopathy and Polyneuropathy- Despite extubation on 08/24, he remains lethargic and weak.- Head CT 08/20 negative- Repeat CT on 08/31 shows some edema of the basal ganglia, confirmed on MRI, this likely represents residual toxic metabolic effect - TSH, ammonia, AM cortisol are normal. CK has normalized-also there is associated with proximal muscle weakness but intact sensation-MRI C spine was most notable for signal changes within the paraspinal musculature of C3-C4 through C5-C6... which is likely a sequelae of rhabdomyolysis. - Monitor, follow-up recommendations from neurology/neurosurgery - Reorient as needed - Continue physical therapy and occupational therapy - Plan for ARU when patient is able to take a few steps on his own. # Renal failure- resolved now as BUN and creatinine levels are back to normal, patient has adequate urine output- Oliguric renal failure with hyperkalemia (after potassium replacement), also presented with severe metabolic acidosis- Likely due to a combination of rhabdo and drug use. -Monitor for now #Hematochezia- resolved- Nurse reported maroon colored stool on 09/01- EGD 09/02 only with mild gastritis and distal esophagitis- MD witnessed maroon colored, grainy stool on 09/03. Rectal exam negative for external hemorrhoids or palpable internal hemorrhoids. Colonoscopy showed solitary rectal ulcer syndrome, bleeding likely from the rectal ulcer. -Continue Protonix daily for regular ulcer PPx. #Bacteremia- Had fever on 08/27 - Blood culture (x1 unfortunately) from that day is growing coag negative staph, a common contaminant. Repeat blood culture negative.- D/Matias right IJ. But his femoral dialysis catheter may also be a source of infection -and now in fact his wound culture from the groin area where the dialysis catheter is, grew positive Pseudomonas, Enterobacter, and VRE. Status post treatment with antibiotics -Monitor, follow-up ID recommendations -again Saurabh line was removed earlier this admission, follow-up culture results of the tip # acute respiratory failure- resolved, now on room air - extubated 08/24, was likely secondary to polysubstance overdose resulting in multiorgan dysfunction; patient had subsequent severe metabolic acidosis with inadequate respiratory compensation-now oxygen levels stable - s/p antibiotic treatment for CAP earlier this admission -Monitor, continue oxygen supplementation as needed # Elevated troponin-now appears stable- CV consulted earlier this admission. Likely demand ischemia from drug use. - Will not treat per NSTEMI protocol, monitor, follow-up cardiology recommendations # transaminitis: -resolved -May be from shock liver or drug use.- Hep B, Hep C negative. LFTs have trended down. -Monitor for now # Rhabdomyolysis -occurred earlier this admission, patient required ICU care at that time, now resolved -Monitor # Coagulopathy- Resolved. # polysubstance abuse - Again patient was found to be positive for opioids, methamphetamine, marijuana and an elevated blood alcohol level. -Earlier this admission ordered for thiamine 300 mg IM daily times 3 days, further treatment as per the clinical course # DVT and GI prophylaxis: Protonix twice daily Dispo: Plan for ARU once patient is able to take a few steps on his own. Result Diagram: 09/20/18 0529 09/20/18 0529 Results 24hrs Laboratory Tests Test 09/20/18 12:35 09/20/18 17:45 09/20/18 21:01 09/21/18 08:09 Bedside Glucose 94 106 93 94 Exam/Review of Systems Vital Signs Vitals Vital Signs Date Temp Pulse Resp B/P (MAP) Pulse Ox O2 O2 Flow FiO2 Time Delivery Rate 09/21/18 98.4 67 16 136/83 100 07:55 (100) 09/20/18 Room Air 14:45 Intake and Output 09/20/18 09/20/18 09/21/18 1515:00 23:00 07:00 IntakeIntake Total 420 ml 790 ml 500 ml BalanceBalance 420 ml 790 ml 500 ml Medications Medications Current Medications Albuterol (Ventolin Hfa) 4 puff Q2H RESP THERAPY PRN INH SHORTNESS OF BREATH; Start 08/20/18 at 22:00 Ipratropium [place] (Atrovent Hfa) 4 puff Q2H RESP THERAPY PRN INH SHORTNESS OF BREATH; Start 08/20/18 at 22:00 Acetaminophen (Tylenol Liquid) 650 mg Q6H PRN PO PAIN LEVEL 1-3 OR FEVER Last a dministered on 09/10/18at 11:22; Admin Dose 650 MG; Start 08/20/18 at 22:00 Miscellaneous Information 1 ea NOTE XX ; Start 08/21/18 at 16:30 Glucose (Glutose) 15 gm Q15M PRN PO DECREASED GLUCOSE; Start 08/21/18 at 16:30 Glucose (Glutose) 22.5 gm Q15M PRN PO DECREASED GLUCOSE; Start 08/21/18 at 1 6:30 Dextrose (D50w Syringe) 25 ml Q15M PRN IV DECREASED GLUCOSE; Start 08/21/18 at 16:30 Dextrose (D50w Syringe) 50 ml Q15M PRN IV DECREASED GLUCOSE; Start 08/21/18 at 16:30 Glucagon (Glucagen) 1 mg Q15M PRN IM DECREASED GLUCOSE; Start 08/21/18 at 16:30 Glucose (Glutose) 15 gm Q15M PRN BUCCAL DECREASED GLUCOSE; Start 08/21/18 at 16:30 Metoprolol Tartrate (Lopressor) 25 mg BID PO Last administered on 09/21/18at 09:19; Admin Dose 25 MG; Start 08/23/18 at 21:00 Epinephrine (Racepinephrine 2.25% (Neb)) 0.25 ml Q3H RESP THERAPY PRN HHN STRIDOR; Start 08/23/18 at 17:00 Ondansetron HCl (Zofran Inj) 4 mg Q6H PRN IV NAUSEA AND/OR VOMITING Last administered on 08/25/18at 21:47; Admin Dose 4 MG; Start 08/25/18 at 21:30 Diagnostic Test (Pha) (Accu-Chek) 1 ea 02 XX ; Start 08/27/18 at 02:00 Heparin Sodium (Porcine) (Heparin (5000 Units/1ml)) 5,000 unit Q8 SC Last administered on 09/01/18at 14:27; Admin Dose 5,000 UNIT; Start 08/29/18 at 14:00; Status Hold Albumin Human 50 ml @ 100 mls/hr DURING DIALYSIS PRN IV During HD. Last administered on 08/29/18at 13:55; Admin Dose 100 MLS/HR; Start 08/29/18 at 12:30 Aspirin (Aspirin) 81 mg DAILY PO Last administered on 09/03/18at 08:37; Admin Dose 81 MG; Start 08/30/18 at 09:00; Status Hold Sucralfate (Carafate Susp) 1 gm QID PO Last administered on 09/21/18at 09:19; Admin Dose 1 GM; Start 09/01/18 at 16:00 Insulin Aspart (Novolog Insulin Pen) (Adult SC Insulin - Mild Algorithm)... AC MEALS AND BEDTIME SC Last administered on 09/12/18at 12:51; Admin Dose 1 UNIT; Start 09/03/18 at 07:00 Sodium Chloride 1,000 ml @ 50 mls/hr Q20H IV Last administered on 09/21/18 05:46; Admin Dose 50 MLS/HR; Start 09/13/18 at 09:00 Pantoprazole (Protonix Tab) 40 mg DAILY@06 PO Last administered on 09/21/18 05:46; Admin Dose 40 MG; Start 09/19/18 at 06:00 CINTIA ESPINOSA Sep 21, 2018 11:37
[2018-09-21 14:11] VITALS: BP 135/82; PULSE 73; RESP 14
--- NOTE | 2018-09-21 14:33 | CONS ---
Assessment/Plan Assessment/Plan Hospital Course A: 33 yo M with uncertain PMH who presents for evaluation of altered mental status..for which neurology is consulted.. UDS + for amphetamines, opioids, EtOH, cannabis He was reported to be severely hypoglycemic in the field. JULIAN+ CK++++ Clinically consistent with an acute and multifactorial toxic-metabolic encephalopathy. Stroke is unlikely. Seizure is unlikely. CTH (08/20) was unrevealing. Repeat CTH was most notable for bilateral globus pallidus edema MRI is notable for sequelae of a toxic-metabolic insult.. As an aside, he has profound 4-limb weakness on exam, which does not appear to be improving w/ his mental status.. MRI C spine was most notable for signal changes within the paraspinal m usculature of C3-C4 through C5-C6... which is a likely sequelae of rhabdomyolysis. P: Ok to defer additional neuroimaging for now. Cont medical management per primary Reorient as necessary Limit sedating medications where possible PT/OT as tolerated Will follow clinically, to make further neurologic recommendations as necessary Result Diagram: 09/20/18 0529 09/20/18 0529 Results 24hrs Laboratory Tests Test 09/20/18 17:45 09/20/18 21:01 09/21/18 08:09 09/21/18 12:45 Bedside Glucose 106 93 94 85 Consultation Date/Type/Reason Admit Date/Time Aug 20, 2018 at 21:39 Type of Consult Neurology Reason for Consultation lethargy/weakness Requesting Provider: YUMIKO JC MD Date/Time of Note DATE: 09/21/18 TIME: 14:33 24 HR Interval Summary Free Text/Dictation Cont medsurg. Pt states that he stood up today with physical therapy. Is without complaints at this time. Exam Vital Signs Vitals Vital Signs Date Temp Pulse Resp B/P (MAP) Pulse Ox O2 O2 Flow FiO2 Time Delivery Rate 09/21/18 98.5 73 14 135/82 100 14:11 (99) 09/20/18 Room Air 14:45 Intake and Output 09/20/18 09/20/18 09/21/18 1515:00 23:00 07:00 IntakeIntake Total 420 ml 790 ml 500 ml BalanceBalance 420 ml 790 ml 500 ml Exam PE: Gen Appearance: No Apparent Distress HEENT: Normocephalic Cardiovascular: Regular rate Lungs: Clear bilaterally Abdomen: Soft Extremities: Dry NE: The patient was alert and oriented. Language was normal. Fund of knowledge was adequate.. Pupils were equal and reactive to light. There was no afferent pupillary defect. Visual lehman were normal. Funduscopic examination was limited. Extra-ocular movements were full. Ptosis was absent. There was no nystagmus. Facial sensation was normal. Face was symmetric with normal strength. Hearing was intact. Palate movements were normal. Neck strength was normal. There was normal tongue bulk and speed of movement. Tone was normal. Muscle bulk was normal. I did not see fasciculations. Arms and legs were still weak though antigravity, prox> dist, R > L... Vibration sensation was normal. Temperature and pinprick sensation was normal. Rapid alternating movements were normal. There was no dysmetria. There was no intention tremor. Gait was deferred due to bedrest. Arm and leg reflexes were asymmetric. Phillips's sign was absent. Plantar responses were flexor. TIN GUIDO NP Sep 21, 2018 14:33 GEOVANNI BANKS Sep 22, 2018 06:17
[2018-09-21 19:22] VITALS: BP 126/78; PULSE 72; RESP 18
[2018-09-22] MEDS: SOD CHLORIDE 0.45% 1,000 ML IV SCH ×2 (01:02→21:01)
[2018-09-22 01:14] VITALS: BP 131/85; PULSE 64; RESP 18
[2018-09-22] MEDS: ACCU-CHEK XX SCH (02:00)
[2018-09-22] MEDS: PANTOPRAZOLE (EC) 40 MG TAB PO SCH (06:05)
[2018-09-22] MEDS: INSULIN ASPART [NOVOLOG] 3 ML PEN SC SCH ×4 (07:00→21:00)
[2018-09-22 07:24] VITALS: BP 131/71; PULSE 68; RESP 16
[2018-09-22] MEDS: SUCRALFATE (100 MG/ML) 10ML CUP PO SCH ×4 (08:21→20:57)
[2018-09-22] MEDS: METOPROLOL 25 MG TAB PO SCH ×2 (08:21→20:57)
[2018-09-22] MEDS ORDERED: POTASSIUM CHLORIDE (SR) 20 MEQ TAB PO STA (12:59)
--- NOTE | 2018-09-22 13:01 | PN ---
Date/Time of Note Date/Time of Note DATE: 09/22/18 TIME: 12:59 Assessment/Plan VTE Prophylaxis Risk score (from Ns)>0 risk: 4 SCD applied (from Ns): No SCD contraindicated: other Pharmacological prophylaxis: heparin Lines/Catheters IV Catheter Type (from [facility]): Peripheral IV Urinary Cath still in place: No Assessment/Plan Hospital Course S: Patient had no acute events overnight, seen by OT team yesterday. O: VS - see below PE: Gen: Lying in bed, more alert, but still overall lethargic Eyes: Pupils equal round reactive to light, extraocular muscles intact HEENT: PERRL, moist mucous membranes, Card: Regular rate and rhythm no murmurs Pulm: CTA bilaterally, no crackles. Abd: Soft, nondistended. Ext: No cyanosis/clubbing/edema Neuro: Still weak overall Assessment/Plan: 33 yo man brought in found down with subsequent JULIAN secondary to rhabdomyolysis; positive for alcohol, methamphetamine, cannabis, opioids as well. #Encephalopathy and Polyneuropathy- Despite extubation on 08/24, he remains lethargic and weak.- Head CT 08/20 negative- Repeat CT on 08/31 shows some edema of the basal ganglia, confirmed on MRI, this likely represents residual toxic metabolic effect - TSH, ammonia, AM cortisol are normal. CK has normalized-also there is associated with proximal muscle weakness but intact sensation-MRI C spine was most notable for signal changes within the paraspinal musculature of C3-C4 through C5-C6... which is likely a sequelae of rhabdomyolysis. - Monitor, follow-up recommendations from neurology/neurosurgery - Reorient as needed - Continue physical therapy and occupational therapy - Plan for ARU when patient is able to take a few steps on his own. # Renal failure- resolved now as BUN and creatinine levels are back to normal, patient has adequate urine output- Oliguric renal failure with hyperkalemia (after potassium replacement), also presented with severe metabolic acidosis- Likely due to a combination of rhabdo and drug use. -Monitor for now -Replete low magnesium today #Hematochezia- resolved- Nurse reported maroon colored stool on 09/01- EGD 09/02 only with mild gastritis and distal esophagitis- MD witnessed maroon colored, grainy stool on 09/03. Rectal exam negative for external hemorrhoids or palpable internal hemorrhoids. Colonoscopy showed solitary rectal ulcer syndrome, bleeding likely from the rectal ulcer. -Continue Protonix daily for regular ulcer PPx. #Bacteremia- Had fever on 08/27 - Blood culture (x1 unfortunately) from that day is growing coag negative staph, a common contaminant. Repeat blood culture negative.- D/Matias right IJ. But his femoral dialysis catheter may also be a source of infection -wound culture from the groin area where the dialysis catheter was grew positive Pseudomonas, Enterobacter, and VRE. Status post treatment with antibiotics for this infection. -Monitor, follow-up ID recommendations -again Saurabh line was removed earlier this admission, follow-up culture results of the tip # acute respiratory failure- resolved, now on room air - extubated 08/24, was likely secondary to polysubstance overdose resulting in multiorgan dysfunction; patient had subsequent severe metabolic acidosis with inadequate respiratory compensation-now oxygen levels stable - s/p antibiotic treatment for CAP earlier this admission -Monitor, continue oxygen supplementation as needed # Elevated troponin-now appears stable- CV consulted earlier this admission. Likely demand ischemia from drug use. - Will not treat per NSTEMI protocol, monitor, follow-up cardiology recommendations # transaminitis: -resolved -May be from shock liver or drug use.- Hep B, Hep C negative. LFTs have trended down. -Monitor for now # Rhabdomyolysis -occurred earlier this admission, patient required ICU care at that time, now resolved -Monitor # Coagulopathy- Resolved. # polysubstance abuse - Again patient was found to be positive for opioids, methamphetamine, marijuana and an elevated blood alcohol level. -Earlier this admission ordered for thiamine 300 mg IM daily times 3 days, further treatment as per the clinical course # DVT and GI prophylaxis: Protonix twice daily Dispo: Plan for ARU once patient is able to take a few steps on his own-have reconsulted them today to reevaluate the patient. Result Diagram: 09/22/18 0434 09/22/18 0434 Results 24hrs Laboratory Tests Test 09/21/18 17:12 09/21/18 20:26 09/22/18 04:34 09/22/18 09:15 Bedside Glucose 106 92 106 White Blood Count 7.0 # Red Blood Count 4.28 L Hemoglobin 13.2 L Hematocrit 40.5 L Mean Corpuscular 94.6 Volume Mean Corpuscular 30.8 Hemoglobin Mean Corpuscular 32.6 Hemoglobin Concent Red Cell 14.5 Distribution Width Platelet Count 396 Mean Platelet Volume 9.6 Immature 0.700 H Granulocytes % Neutrophils % 59.3 Lymphocytes % 24.3 Monocytes % 7.3 Eosinophils % 6.8 Basophils % 1.6 Nucleated Red Blood 0.0 Cells % Immature 0.050 H Granulocytes # Neutrophils # 4.1 Lymphocytes # 1.7 Monocytes # 0.5 Eosinophils # 0.5 Basophils # 0.1 Nucleated Red Blood 0.0 Cells # Sodium Level 140 Potassium Level 3.4 L Chloride Level 101 Carbon Dioxide Level 27 Anion Gap 12 Blood Urea Nitrogen 21 H Creatinine 0.87 Est Glomerular > 60 Filtrat Rate mL/min Glucose Level 99 Calcium Level 9.9 Phosphorus Level 3.9 Magnesium Level 1.5 L Exam/Review of Systems Vital Signs Vitals Vital Signs Date Temp Pulse Resp B/P (MAP) Pulse Ox O2 O2 Flow FiO2 Time Delivery Rate 09/22/18 98.2 68 16 131/71 100 07:24 (91) 09/20/18 Room Air 14:45 Intake and Output 09/21/18 09/21/18 09/22/18 1515:00 23:00 07:00 IntakeIntake Total 1440 ml 1040 ml 600 ml BalanceBalance 1440 ml 1040 ml 600 ml Medications Medications Current Medications Miscellaneous Information 1 ea NOTE XX ; Start 08/21/18 at 16:30 Glucose (Glutose) 15 gm Q15M PRN PO DECREASED GLUCOSE; Start 08/21/18 at 16:30 Glucose (Glutose) 22.5 gm Q15M PRN PO DECREASED GLUCOSE; Start 08/21/18 at 16:30 Dextrose (D50w Syringe) 25 ml Q15M PRN IV DECREASED GLUCOSE; Start 08/21/18 at 16:30 Dextrose (D50w Syringe) 50 ml Q15M PRN IV DECREASED GLUCOSE; Start 08/21/18 at 16:30 Glucagon (Glucagen) 1 mg Q15M PRN IM DECREASED GLUCOSE; Start 08/21/18 at 16:30 Glucose (Glutose) 15 gm Q15M PRN BUCCAL DECREASED GLUCOSE; Start 08/21/18 at 16:30 Metoprolol Tartrate (Lopressor) 25 mg BID PO Last administered on 09/22/18at 08:21; Admin Dose 25 MG; Start 08/23/18 at 21:00 Epinephrine (Racepinephrine 2.25% (Neb)) 0.25 ml Q3H RESP THERAPY PRN HHN STRIDOR; Start 08/23/18 at 17:00 Ondansetron HCl (Zofran Inj) 4 mg Q6H PRN IV NAUSEA AND/OR VOMITING Last administered on 08/25/18at 21:47; Admin Dose 4 MG; Start 08/25/18 at 21:30 Diagnostic Test (Pha) (Accu-Chek) 1 ea 02 XX ; Start 08/27/18 at 02:00 Heparin Sodium (Porcine) (Heparin (5000 Units/1ml)) 5,000 unit Q8 SC Last administered on 09/01/18 14:27; Admin Dose 5,000 UNIT; Start 08/29/18 at 14:00; Status Hold Albumin Human 50 ml @ 100 mls/hr DURING DIALYSIS PRN IV During HD. Last administered on 08/29/18at 13:55; Admin Dose 100 MLS/HR; Start 08/29/18 at 12:30 Aspirin (Aspirin) 81 mg DAILY PO Last administered on 09/03/18at 08:37; Admin Dose 81 MG; Start 08/30/18 at 09:00; Status Hold Sucralfate (Carafate Susp) 1 gm QID PO Last administered on 09/22/18 08:21; Admin Dose 1 GM; Start 09/01/18 at 16:00 Insulin Aspart (Novolog Insulin Pen) (Adult SC Insulin - Mild Algorithm)... AC MEALS AND BEDTIME SC Last administered on 09/12/18 12:51; Admin Dose 1 UNIT; Start 09/03/18 at 07:00 Sodium Chloride 1,000 ml @ 50 mls/hr Q20H IV Last administered on 09/22/18 01:02; Admin Dose 50 MLS/HR; Start 09/13/18 at 09:00 Pantoprazole (Protonix Tab) 40 mg DAILY@06 PO Last administered on 09/22/18 06:05; Admin Dose 40 MG; Start 09/19/18 at 06:00 CINTIA ESPINOSA Sep 22, 2018 13:01
[2018-09-22 13:38] VITALS: BP 123/85; PULSE 70; RESP 18
[2018-09-22] MEDS ORDERED: MAGNESIUM SULFATE 2 GM/50 ML 50 ML IVPB ONE (14:30)
--- NOTE | 2018-09-22 17:08 | CONS ---
Assessment/Plan Assessment/Plan Hospital Course A: 33 yo M with uncertain PMH who presents for evaluation of altered mental status..for which neurology is consulted.. UDS + for amphetamines, opioids, EtOH, cannabis He was reported to be severely hypoglycemic in the field. JULIAN+ CK++++ Clinically consistent with an acute and multifactorial toxic-metabolic encephalopathy. Stroke is unlikely. Seizure is unlikely. CTH (08/20) was unrevealing. Repeat CTH was most notable for bilateral globus pallidus edema MRI is notable for sequelae of a toxic-metabolic insult.. As an aside, he has profound 4-limb weakness on exam, which does not appear to be improving w/ his mental status.. MRI C spine was most notable for signal changes within the paraspinal m usculature of C3-C4 through C5-C6... which is a likely sequelae of rhabdomyolysis. P: Ok to defer additional neuroimaging for now. Cont medical management per primary Reorient as necessary Limit sedating medications where possible PT/OT as tolerated Will follow clinically, to make further neurologic recommendations as necessary Result Diagram: 09/22/18 0434 09/22/18 0434 Results 24hrs Laboratory Tests Test 09/21/18 17:12 09/21/18 20:26 09/22/18 04:34 09/22/18 09:15 Bedside Glucose 106 92 106 White Blood Count 7.0 # Red Blood Count 4.28 L Hemoglobin 13.2 L Hematocrit 40.5 L Mean Corpuscular 94.6 Volume Mean Corpuscular 30.8 Hemoglobin Mean Corpuscular 32.6 Hemoglobin Concent Red Cell 14.5 Distribution Width Platelet Count 396 Mean Platelet Volume 9.6 Immature 0.700 H Granulocytes % Neutrophils % 59.3 Lymphocytes % 24.3 Monocytes % 7.3 Eosinophils % 6.8 Basophils % 1.6 Nucleated Red Blood 0.0 Cells % Immature 0.050 H Granulocytes # Neutrophils # 4.1 Lymphocytes # 1.7 Monocytes # 0.5 Eosinophils # 0.5 Basophils # 0.1 Nucleated Red Blood 0.0 Cells # Sodium Level 140 Potassium Level 3.4 L Chloride Level 101 Carbon Dioxide Level 27 Anion Gap 12 Blood Urea Nitrogen 21 H Creatinine 0.87 Est Glomerular > 60 Filtrat Rate mL/min Glucose Level 99 Calcium Level 9.9 Phosphorus Level 3.9 Magnesium Level 1.5 L Test 09/22/18 13:12 Bedside Glucose 101 Consultation Date/Type/Reason Admit Date/Time Aug 20, 2018 at 21:39 Type of Consult Neurology Reason for Consultation lethargy/weakness Requesting Provider: YUMIKO JC MD Date/Time of Note DATE: 09/22/18 TIME: 17:05 24 HR Interval Summary Free Text/Dictation Continues medsurg monitoring. Pt able to sit/stand at EOB with one person assist. Exam Vital Signs Vitals Vital Signs Date Temp Pulse Resp B/P (MAP) Pulse Ox O2 O2 Flow FiO2 Time Delivery Rate 09/22/18 99.5 70 18 123/85 99 Room Air 13:38 (98) Intake and Output 09/21/18 09/21/18 09/22/18 1515:00 23:00 07:00 IntakeIntake Total 1440 ml 1040 ml 600 ml BalanceBalance 1440 ml 1040 ml 600 ml Exam PE: Gen Appearance: No Apparent Distress HEENT: Normocephalic Cardiovascular: Regular rate Lungs: Clear bilaterally Abdomen: Soft Extremities: Dry NE: The patient was alert and oriented. Language was normal. Fund of knowledge was adequate.. Pupils were equal and reactive to light. There was no afferent pupillary defect. Visual lehman were normal. Funduscopic examination was limited. Extra-ocular movements were full. Ptosis was absent. There was no nystagmus. Facial sensation was normal. Face was symmetric with normal strength. Hearing was intact. Palate movements were normal. Neck strength was normal. There was normal tongue bulk and speed of movement. Tone was normal. Muscle bulk was normal. I did not see fasciculations. Arms and legs were still weak though antigravity, prox> dist, R > L... Vibration sensation was normal. Temperature and pinprick sensation was normal. Rapid alternating movements were normal. There was no dysmetria. There was no intention tremor. Instabilty noted upon standing d/t R leg weakness; required a one person assist. Gait was deferred. Arm and leg reflexes were asymmetric. Phillips's sign was absent. Plantar responses were flexor. TIN GUIDO NP Sep 22, 2018 17:08 GEOVANNI BANKS Sep 23, 2018 06:09
[2018-09-22 19:21] VITALS: BP 100/51; PULSE 87; RESP 18
[2018-09-22 19:33] VITALS: BP 124/83; PULSE 78; RESP 18
[2018-09-23 01:09] VITALS: BP 135/92; PULSE 75; RESP 18
[2018-09-23] MEDS: ACCU-CHEK XX SCH (01:39)
[2018-09-23] MEDS: PANTOPRAZOLE (EC) 40 MG TAB PO SCH (05:40)
[2018-09-23] MEDS: INSULIN ASPART [NOVOLOG] 3 ML PEN SC SCH ×4 (07:00→21:00)
[2018-09-23 07:35] VITALS: BP 140/89; PULSE 72; RESP 18
[2018-09-23] MEDS: METOPROLOL 25 MG TAB PO SCH ×2 (08:59→21:41)
[2018-09-23] MEDS: SUCRALFATE (100 MG/ML) 10ML CUP PO SCH ×4 (09:00→21:41)
--- NOTE | 2018-09-23 13:53 | PN ---
Date/Time of Note Date/Time of Note DATE: 09/23/18 TIME: 13:51 Assessment/Plan VTE Prophylaxis Risk score (from Ns)>0 risk: 4 SCD applied (from Ns): No SCD contraindicated: other Pharmacological prophylaxis: heparin Lines/Catheters IV [facility] (from [facility]): Peripheral IV Urinary Cath still in place: No Assessment/Plan Hospital Course S: Patient had no apparent acute events overnight. O: VS - see below PE: Gen: Lying in bed, more alert, but still overall lethargic Eyes: Pupils equal round reactive to light, extraocular muscles intact HEENT: PERRL, moist mucous membranes, Card: Regular rate and rhythm no murmurs Pulm: CTA bilaterally, no crackles. Abd: Soft, nondistended. Ext: No cyanosis/clubbing/edema Neuro: Still weak overall Assessment/Plan: 33 yo man brought in found down with subsequent JULIAN secondary to rhabdomyolysis; positive for alcohol, methamphetamine, cannabis, opioids as well. #Encephalopathy and Polyneuropathy- Despite extubation on 08/24, he remains lethargic and weak.- Head CT 08/20 negative- Repeat CT on 08/31 shows some edema of the basal ganglia, confirmed on MRI, this likely represents residual toxic metabolic effect - TSH, ammonia, AM cortisol are normal. CK has normalized-also there is associated with proximal muscle weakness but intact sensation-MRI C spine was most notable for signal changes within the paraspinal musculature of C3-C4 through C5-C6... which is likely a sequelae of rhabdomyolysis. - Monitor, follow-up recommendations from neurology/neurosurgery - Reorient as needed - Continue physical therapy and occupational therapy - Plan for ARU when patient is able to take a few steps on his own. # Renal failure- resolved now as BUN and creatinine levels are back to normal, patient has adequate urine output- Oliguric renal failure with hyperkalemia (after potassium replacement), also presented with severe metabolic acidosis- Likely due to a combination of rhabdo and drug use. -Monitor for now #Hematochezia- resolved- Nurse reported maroon colored stool on 09/01- EGD 09/02 only with mild gastritis and distal esophagitis- MD witnessed maroon colored, grainy stool on 09/03. Rectal exam negative for external hemorrhoids or palpable internal hemorrhoids. Colonoscopy showed solitary rectal ulcer syndrome, blee ding likely from the rectal ulcer. -Continue Protonix daily for regular ulcer PPx. #Bacteremia- Had fever on 08/27 - Blood culture (x1 unfortunately) from that day is growing coag negative staph, a common contaminant. Repeat blood culture negative.- D/Matias right IJ. But his femoral dialysis catheter may also be a source of infection -wound culture from the groin area where the dialysis catheter was grew positive Pseudomonas, Enterobacter, and VRE. Status post treatment with antibiotics for this infection. Tip of Saurabh catheter culture was positive for Rosa on September 09, 2018. -Monitor, follow-up ID recommendations -again Saurabh line was removed earlier this admission # acute respiratory failure- resolved, now on room air - extubated 08/24, was likely secondary to polysubstance overdose resulting in multiorgan dysfunction; patient had subsequent severe metabolic acidosis with inadequate respiratory compensation-now oxygen levels stable - s/p antibiotic treatment for CAP earlier this admission -Monitor, continue oxygen supplementation as needed # Elevated troponin-now appears stable- CV consulted earlier this admission. Likely demand ischemia from drug use. - Will not treat per NSTEMI protocol, monitor, follow-up cardiology recommendations # transaminitis: -resolved -May be from shock liver or drug use.- Hep B, Hep C negative. LFTs have trended down. -Monitor for now # Rhabdomyolysis -occurred earlier this admission, patient required ICU care at that time, now resolved -Monitor # Coagulopathy- Resolved. # polysubstance abuse - Again patient was found to be positive for opioids, methamphetamine, marijuana and an elevated blood alcohol level. -Earlier this admission ordered for thiamine 300 mg IM daily times 3 days, further treatment as per the clinical course # DVT and GI prophylaxis: Protonix twice daily Dispo: Plan for ARU once patient is able to take a few steps on his own-have reconsulted them today to reevaluate the patient. Result Diagram: 09/22/18 0434 09/22/18 0434 Results 24hrs Laboratory Tests Test 09/22/18 17:51 09/22/18 20:56 09/23/18 08:59 09/23/18 13:20 Bedside Glucose 94 109 113 104 Exam/Review of Systems Vital Signs Vitals Vital Signs Date Temp Pulse Resp B/P (MAP) Pulse Ox O2 O2 Flow FiO2 Time Delivery Rate 09/23/18 98.3 72 18 140/89 100 Room Air 07:35 (106) Intake and Output 09/22/18 09/22/18 09/23/18 1515:00 23:00 07:00 IntakeIntake Total 600 ml 1160 ml 1430 ml BalanceBalance 600 ml 1160 ml 1430 ml Medications Medications Current Medications Miscellaneous Information 1 ea NOTE XX ; Start 08/21/18 at 16:30 Glucose (Glutose) 15 gm Q15M PRN PO DECREASED GLUCOSE; Start 08/21/18 at 16:30 Glucose (Glutose) 22.5 gm Q15M PRN PO DECREASED GLUCOSE; Start 08/21/18 at 16:30 Dextrose (D50w Syringe) 25 ml Q15M PRN IV DECREASED GLUCOSE; Start 08/21/18 at 16:30 Dextrose (D50w Syringe) 50 ml Q15M PRN IV DECREASED GLUCOSE; Start 08/21/18 at 16:30 Glucagon (Glucagen) 1 mg Q15M PRN IM DECREASED GLUCOSE; Start 08/21/18 at 16:30 Glucose (Glutose) 15 gm Q15M PRN BUCCAL DECREASED GLUCOSE; Start 08/21/18 at 16:30 Metoprolol Tartrate (Lopressor) 25 mg BID PO Last administered on 09/23/18at 08:59; Admin Dose 25 MG; Start 08/23/18 at 21:00 Epinephrine (Racepinephrine 2.25% (Neb)) 0.25 ml Q3H RESP THERAPY PRN HHN STRIDOR; Start 08/23/18 at 17:00 Ondansetron HCl (Zofran Inj) 4 mg Q6H PRN IV NAUSEA AND/OR VOMITING Last administered on 08/25/18at 21:47; Admin Dose 4 MG; Start 08/25/18 at 21:30 Diagnostic Test (Pha) (Accu-Chek) 1 ea 02 XX ; Start 08/27/18 at 02:00 Heparin Sodium (Porcine) (Heparin (5000 Units/1ml)) 5,000 unit Q8 SC Last administered on 09/01/18at 14:27; Admin Dose 5,000 UNIT; Start 08/29/18 at 14:00; Status Hold Albumin Human 50 ml @ 100 mls/hr DURING DIALYSIS PRN IV During HD. Last administered on 08/29/18at 13:55; Admin Dose 100 MLS/HR; Start 08/29/18 at 12:30 Aspirin (Aspirin) 81 mg DAILY PO Last administered on 09/03/18at 08:37; Admin Dose 81 MG; Start 08/30/18 at 09:00; Status Hold Sucralfate (Carafate Susp) 1 gm QID PO Last administered on 09/23/18at 13:21; Admin Dose 1 GM; Start 09/01/18 at 16:00 Insulin Aspart (Novolog Insulin Pen) (Adult SC Insulin - Mild Algorithm)... AC MEALS AND BEDTIME SC Last administered on 09/12/18at 12:51; Admin Dose 1 UNIT; Start 09/03/18 at 07:00 Sodium Chloride 1,000 ml @ 50 mls/hr Q20H IV Last administered on 09/22/18at 21:01; Admin Dose 50 MLS/HR; Start 09/13/18 at 09:00 Pantoprazole (Protonix Tab) 40 mg DAILY@06 PO Last administered on 09/23/18at 05:40; Admin Dose 40 MG; Start 09/19/18 at 06:00 CINTIA ESPINOSA Sep 23, 2018 13:53
--- NOTE | 2018-09-23 14:39 | CONS ---
Assessment/Plan Assessment/Plan Hospital Course A: 33 yo M with uncertain PMH who presents for evaluation of altered mental status..for which neurology is consulted.. UDS + for amphetamines, opioids, EtOH, cannabis He was reported to be severely hypoglycemic in the field. JULIAN+ CK++++ Clinically consistent with an acute and multifactorial toxic-metabolic encephalopathy. Stroke is unlikely. Seizure is unlikely. CTH (08/20) was unrevealing. Repeat CTH was most notable for bilateral globus pallidus edema MRI is notable for sequelae of a toxic-metabolic insult.. As an aside, he has profound 4-limb weakness on exam. MRI C spine was most notable for signal changes within the paraspinal musculature of C3-C4 through C5-C6... which is a likely sequelae of rhabdomyolysis. P: Ok to defer additional neuroimaging for now. Cont medical management per primary Reorient as necessary Limit sedating medications where possible PT/OT as tolerated Will sign off'; please call w/ ?s Result Diagram: 09/22/18 0434 09/22/18 0434 Results 24hrs Laboratory Tests Test 09/22/18 17:51 09/22/18 20:56 09/23/18 08:59 09/23/18 13:20 Bedside Glucose 94 109 113 104 Consultation Date/Type/Reason Admit Date/Time Aug 20, 2018 at 21:39 Type of Consult Neurology Reason for Consultation lethargy/weakness Requesting Provider: YUMIKO JC MD Date/Time of Note DATE: 09/23/18 TIME: 14:39 24 HR Interval Summary Free Text/Dictation Pt states that he's doing well today. Has c/o minor limb pain when working with physical therapy. Exam Vital Signs Vitals Vital Signs Date Temp Pulse Resp B/P (MAP) Pulse Ox O2 O2 Flow FiO2 Time Delivery Rate 09/23/18 98.3 72 18 140/89 100 Room Air 07:35 (106) Intake and Output 09/22/18 09/22/18 09/23/18 1515:00 23:00 07:00 IntakeIntake Total 600 ml 1160 ml 1430 ml BalanceBalance 600 ml 1160 ml 1430 ml Exam PE: Gen Appearance: No Apparent Distress HEENT: Normocephalic Cardiovascular: Regular rate Lungs: Clear bilaterally Abdomen: Soft Extremities: Dry NE: The patient was alert and oriented. Language was normal. Fund of knowledge was adequate.. Pupils were equal and reactive to light. There was no afferent pupillary defect. Visual lehman were normal. Funduscopic examination was limited. Extra-ocular movements were full. Ptosis was absent. There was no nystagmus. Facial sensation was normal. Face was symmetric with normal strength. Hearing was intact. Palate movements were normal. Neck strength was normal. There was normal tongue bulk and speed of movement. Tone was normal. Muscle bulk was normal. I did not see fasciculations. Arms and legs were still weak though antigravity, prox> dist, R > L... Vibration sensation was normal. Temperature and pinprick sensation was normal. Rapid alternating movements were normal. There was no dysmetria. There was no intention tremor. Instabilty noted upon standing d/t R leg weakness; required a one person assist. Gait was deferred. Arm and leg reflexes were asymmetric. Phillips's sign was absent. Plantar responses were flexor. TIN GUIDO NP Sep 23, 2018 14:39 GEOVANNI BANKS Sep 24, 2018 07:51
[2018-09-23] MEDS: traMADol 50 MG TAB PO PRN (16:02)
[2018-09-23] MEDS: SOD CHLORIDE 0.45% 1,000 ML IV SCH ×2 (16:03→18:00)
[2018-09-23 20:00] VITALS: BP 125/77; PULSE 74; RESP 16
[2018-09-24 02:00] VITALS: BP 125/83; PULSE 74; RESP 16
[2018-09-24] MEDS: ACCU-CHEK XX SCH (02:00)
[2018-09-24] MEDS: PANTOPRAZOLE (EC) 40 MG TAB PO SCH (06:09)
[2018-09-24] MEDS: INSULIN ASPART [NOVOLOG] 3 ML PEN SC SCH ×4 (07:00→20:36)
[2018-09-24 07:35] VITALS: BP 130/83; PULSE 79; RESP 14
[2018-09-24] MEDS: METOPROLOL 25 MG TAB PO SCH ×2 (08:17→20:37)
[2018-09-24] MEDS: SUCRALFATE (100 MG/ML) 10ML CUP PO SCH ×4 (08:18→20:37)
[2018-09-24] MEDS: SOD CHLORIDE 0.45% 1,000 ML IV SCH (14:14)
[2018-09-24 15:10] VITALS: BP 126/83; PULSE 82; RESP 16
[2018-09-24] MEDS ORDERED: MAGNESIUM SULFATE 2 GM/50 ML 50 ML IVPB ONE (15:30)
--- NOTE | 2018-09-24 16:18 | PN ---
Date/Time of Note Date/Time of Note DATE: 09/24/18 TIME: 16:17 Assessment/Plan VTE Prophylaxis Risk score (from Ns)>0 risk: 4 SCD applied (from Ns): No SCD contraindicated: other Pharmacological prophylaxis: heparin Lines/Catheters IV Catheter Type (from [facility]): Peripheral IV Urinary Cath still in place: No Assessment/Plan Hospital Course S: Patient had no acute events overnight. O: VS - see below PE: Gen: Lying in bed, more alert, but still overall lethargic Eyes: Pupils equal round reactive to light, extraocular muscles intact HEENT: PERRL, moist mucous membranes, Card: Regular rate and rhythm no murmurs Pulm: CTA bilaterally, no crackles. Abd: Soft, nondistended. Ext: No cyanosis/clubbing/edema Neuro: Still weak overall Assessment/Plan: 33 yo man brought in found down with subsequent JULIAN secondary to rhabdomyolysis; positive for alcohol, methamphetamine, cannabis, opioids as well. #Encephalopathy and Polyneuropathy- Despite extubation on 08/24, he remains lethargic and weak.- Head CT 08/20 negative- Repeat CT on 08/31 shows some edema of the basal ganglia, confirmed on MRI, this likely represents residual toxic metabolic effect - TSH, ammonia, AM cortisol are normal. CK has normalized-also there is associated with proximal muscle weakness but intact sensation-MRI C spine was most notable for signal changes within the paraspinal musculature of C3-C4 through C5-C6... which is likely a sequelae of rhabdomyolysis. - Monitor, follow-up recommendations from neurology/neurosurgery - Reorient as needed - Continue physical therapy and occupational therapy - Plan for ARU when patient is able to take a few steps on his own. # Renal failure- resolved now as BUN and creatinine levels are back to normal, patient has adequate urine output- Oliguric renal failure with hyperkalemia (after potassium replacement), also presented with severe metabolic acidosis- Likely due to a combination of rhabdo and drug use. -Monitor for now #Hematochezia- resolved- Nurse reported maroon colored stool on 09/01- EGD 09/02 only with mild gastritis and distal esophagitis- MD witnessed maroon colored, grainy stool on 09/03. Rectal exam negative for external hemorrhoids or palpable internal hemorrhoids. Colonoscopy showed solitary rectal ulcer syndrome, bleeding likely from the rectal ulcer. -Continue Protonix daily for regular ulcer PPx. #Bacteremia- Had fever on 08/27 - Blood culture (x1 unfortunately) from that day is growing coag negative staph, a common contaminant. Repeat blood culture negative.- D/Matias right IJ. But his femoral dialysis catheter may also be a source of infection -wound culture from the groin area where the dialysis catheter was grew positive Pseudomonas, Enterobacter, and VRE. Status post treatment with antibiotics for this infection. Tip of Saurabh catheter culture was positive for Rosa on September 09, 2018. -Monitor, follow-up ID recommendations -again Saurabh line was removed earlier this admission # acute respiratory failure- resolved, now on room air - extubated 08/24, was likely secondary to polysubstance overdose resulting in multiorgan dysfunction; patient had subsequent severe metabolic acidosis with inadequate respiratory compensation-now oxygen levels stable - s/p antibiotic treatment for CAP earlier this admission -Monitor, continue oxygen supplementation as needed # Elevated troponin-now appears stable- CV consulted earlier this admission. Likely demand ischemia from drug use. - Will not treat per NSTEMI protocol, monitor, follow-up cardiology recommendations # transaminitis: -resolved -May be from shock liver or drug use.- Hep B, Hep C negative. LFTs have trended down. -Monitor for now # Rhabdomyolysis -occurred earlier this admission, patient required ICU care at that time, now resolved -Monitor # Coagulopathy- Resolved. # polysubstance abuse - Again patient was found to be positive for opioids, methamphetamine, marijuana and an elevated blood alcohol level. -Earlier this admission ordered for thiamine 300 mg IM daily times 3 days, further treatment as per the clinical course # DVT and GI prophylaxis: Protonix twice daily Dispo: Plan for ARU once patient is able to take a few steps on his own-they reevaluated him yesterday. Result Diagram: 09/24/1862009/24/18620 Results 24hrs Laboratory Tests Test 09/23/18 17:26 09/23/18 21:42 09/24/18 06:21 09/24/18 08:16 Bedside Glucose 102 116 100 White Blood Count 6.5 Red Blood Count 4.26 L Hemoglobin 13.1 L Hematocrit 40.1 L Mean Corpuscular 94.1 Volume Mean Corpuscular 30.8 Hemoglobin Mean Corpuscular 32.7 Hemoglobin Concent Red Cell 14.4 Distribution Width Platelet Count 334 Mean Platelet Volume 9.9 Immature 0.500 H Granulocytes % Neutrophils % 54.3 Lymphocytes % 26.6 Monocytes % 8.0 Eosinophils % 8.3 H Basophils % 2.3 H Nucleated Red Blood 0.0 Cells % Immature 0.030 Granulocytes # Neutrophils # 3.6 Lymphocytes # 1.7 Monocytes # 0.5 Eosinophils # 0.5 Basophils # 0.2 H Nucleated Red Blood 0.0 Cells # Sodium Level 140 Potassium Level 3.6 Chloride Level 102 Carbon Dioxide Level 27 Anion Gap 11 Blood Urea Nitrogen 26 H Creatinine 0.82 Est Glomerular > 60 Filtrat Rate mL/min Glucose Level 106 Calcium Level 9.9 Phosphorus Level 4.4 Magnesium Level 1.5 L Test 09/24/18 12:41 Bedside Glucose 98 Exam/Review of Systems Vital Signs Vitals Vital Signs Date Temp Pulse Resp B/P (MAP) Pulse Ox O2 O2 Flow FiO2 Time Delivery Rate 09/24/18 98.7 82 16 126/83 98 15:10 (97) 09/23/18 Room Air 07:35 Intake and Output 09/23/18 09/23/18 09/24/18 1515:00 23:00 07:00 IntakeIntake Total 720 ml 1050 ml 550 ml BalanceBalance 720 ml 1050 ml 550 ml Medications Medications Current Medications Miscellaneous Information 1 ea NOTE XX ; Start 08/21/18 at 16:30 Glucose (Glutose) 15 gm Q15M PRN PO DECREASED GLUCOSE; Start 08/21/18 at 16:30 Glucose (Glutose) 22.5 gm Q15M PRN PO DECREASED GLUCOSE; Start 08/21/18 at 16:30 Dextrose (D50w Syringe) 25 ml Q15M PRN IV DECREASED GLUCOSE; Start 08/21/18 at 16:30 Dextrose (D50w Syringe) 50 ml Q15M PRN IV DECREASED GLUCOSE; Start 08/21/18 at 16:30 Glucagon (Glucagen) 1 mg Q15M PRN IM DECREASED GLUCOSE; Start 08/21/18 at 16:30 Glucose (Glutose) 15 gm Q15M PRN BUCCAL DECREASED GLUCOSE; Start 08/21/18 at 16:30 Metoprolol Tartrate (Lopressor) 25 mg BID PO Last administered on 09/24/18at 08:17; Admin Dose 25 MG; Start 08/23/18 at 21:00 Ondansetron HCl (Zofran Inj) 4 mg Q6H PRN IV NAUSEA AND/OR VOMITING Last administered on 08/25/18at 21:47; Admin Dose 4 MG; Start 08/25/18 at 21:30 Diagnostic Test (Pha) (Accu-Chek) 1 ea 02 XX ; Start 08/27/18 at 02:00 Heparin Sodium (Porcine) (Heparin (5000 Units/1ml)) 5,000 unit Q8 SC Last administered on 09/01/18at 14:27; Admin Dose 5,000 UNIT; Start 08/29/18 at 14:00; Status Hold Albumin Human 50 ml @ 100 mls/hr DURING DIALYSIS PRN IV During HD. Last administered on 08/29/18 13:55; Admin Dose 100 MLS/HR; Start 08/29/18 at 12:30 Aspirin (Aspirin) 81 mg DAILY PO Last administered on 09/03/18at 08:37; Admin Dose 81 MG; Start 08/30/18 at 09:00; Status Hold Sucralfate (Carafate Susp) 1 gm QID PO Last administered on 09/24/18 12:41; Admin Dose 1 GM; Start 09/01/18 at 16:00 Insulin Aspart (Novolog Insulin Pen) (Adult SC Insulin - Mild Algorithm)... AC MEALS AND BEDTIME SC Last administered on 09/12/18 12:51; Admin Dose 1 UNIT; Start 09/03/18 at 07:00 Sodium Chloride 1,000 ml @ 50 mls/hr Q20H IV Last administered on 09/24/18 14:14; Admin Dose 50 MLS/HR; Start 09/13/18 at 09:00 Pantoprazole (Protonix Tab) 40 mg DAILY@06 PO Last administered on 09/24/18 06:09; Admin Dose 40 MG; Start 09/19/18 at 06:00 Tramadol HCl (Ultram) 50 mg Q6H PRN PO MODERATE PAIN LEVEL 4-6 Last admi nistered on 09/23/18 16:02; Admin Dose 50 MG; Start 09/23/18 at 15:00 Magnesium Sulfate 50 ml @ 25 mls/hr ONCE ONCE IVPB ; Start 09/24/18 at 15:30; Stop 09/24/18 at 17:29 CINTIA ESPINOSA Sep 24, 2018 16:18
[2018-09-24 20:00] VITALS: BP 122/77; PULSE 84; RESP 16
[2018-09-25 01:54] VITALS: BP 125/82; PULSE 70; RESP 16
[2018-09-25] MEDS: ACCU-CHEK XX SCH (02:00)
[2018-09-25] MEDS: PANTOPRAZOLE (EC) 40 MG TAB PO SCH (06:30)
[2018-09-25] MEDS: INSULIN ASPART [NOVOLOG] 3 ML PEN SC SCH ×4 (07:00→21:00)
[2018-09-25 07:42] VITALS: BP 130/79; PULSE 68; RESP 16
[2018-09-25] MEDS: SOD CHLORIDE 0.45% 1,000 ML IV SCH ×2 (07:57→12:44)
[2018-09-25] MEDS: SUCRALFATE (100 MG/ML) 10ML CUP PO SCH ×4 (08:00→21:25)
[2018-09-25] MEDS: METOPROLOL 25 MG TAB PO SCH ×2 (08:15→21:25)
--- NOTE | 2018-09-25 12:52 | PN ---
Date/Time of Note Date/Time of Note DATE: 09/25/18 TIME: 12:50 Assessment/Plan VTE Prophylaxis Risk score (from Ns)>0 risk: 4 SCD applied (from Ns): No SCD contraindicated: other Pharmacological prophylaxis: heparin Lines/Catheters IV Catheter Type (from [facility]): Peripheral IV Urinary Cath still in place: No Assessment/Plan Hospital Course S: Patient had no acute events overnight. O: VS - see below PE: Gen: Lying in bed, more alert, but still overall lethargic Eyes: Pupils equal round reactive to light, extraocular muscles intact HEENT: PERRL, moist mucous membranes, Card: Regular rate and rhythm no murmurs Pulm: CTA bilaterally, no crackles. Abd: Soft, nondistended Ext: No cyanosis/clubbing/edema Neuro: Still weak overall Assessment/Plan: 33 yo man brought in found down with subsequent JULIAN secondary to rhabdomyolysis; positive for alcohol, methamphetamine, cannabis, opioids as well. #Encephalopathy and Polyneuropathy- Despite extubation on 08/24, he remains lethargic and weak.- Head CT 08/20 negative- Repeat CT on 08/31 shows some edema of the basal ganglia, confirmed on MRI, this likely represents residual toxic metabolic effect - TSH, ammonia, AM cortisol are normal. CK has normalized-also there is associated with proximal muscle weakness but intact sensation-MRI C spine was most notable for signal changes within the paraspinal musculature of C3-C4 through C5-C6... which is likely a sequelae of rhabdomyolysis. - Monitor, follow-up recommendations from neurology/neurosurgery - Reorient as needed - Continue physical therapy and occupational therapy - Plan for ARU when patient is able to take a few steps on his own. # Renal failure- resolved now as BUN and creatinine levels are back to normal, patient has adequate urine output- Oliguric renal failure with hyperkalemia (after potassium replacement), also presented with severe metabolic acidosis- L ikely due to a combination of rhabdo and drug use. -Monitor for now #Hematochezia- resolved- Nurse reported maroon colored stool on 09/01- EGD 09/02 only with mild gastritis and distal esophagitis- MD witnessed maroon colored, grainy stool on 09/03. Rectal exam negative for external hemorrhoids or palpable internal hemorrhoids. Colonoscopy showed solitary rectal ulcer syndrome, bleeding likely from the rectal ulcer. -Continue Protonix daily for regular ulcer PPx. #Bacteremia- Had fever on 08/27 - Blood culture (x1 unfortunately) from that day is growing coag negative staph, a common contaminant. Repeat blood culture negative.- D/Matias right IJ. But his femoral dialysis catheter may also be a source of infection -wound culture from the groin area where the dialysis catheter was grew positive Pseudomonas, Enterobacter, and VRE. Status post treatment with antibiotics for this infection. Tip of Saurabh catheter culture was positive for Rosa on September 09, 2018. -Monitor, follow-up ID recommendations -again Saurabh line was removed earlier this admission # acute respiratory failure- resolved, now on room air - extubated 08/24, was likely secondary to polysubstance overdose resulting in multiorgan dysfunction; patient had subsequent severe metabolic acidosis with inadequate respiratory compensation-now oxygen levels stable - s/p antibiotic treatment for CAP earlier this admission -Monitor, continue oxygen supplementation as needed # Elevated troponin-now appears stable- CV consulted earlier this admission. Likely demand ischemia from drug use. - Will not treat per NSTEMI protocol, monitor, follow-up cardiology recommendations # transaminitis: -resolved -May be from shock liver or drug use.- Hep B, Hep C negative. LFTs have trended down. -Monitor for now # Rhabdomyolysis -occurred earlier this admission, patient required ICU care at that time, now resolved -Monitor # Coagulopathy- Resolved. # polysubstance abuse - Again patient was found to be positive for opioids, methamphetamine, marijuana and an elevated blood alcohol level. -Earlier this admission ordered for thiamine 300 mg IM daily times 3 days, further treatment as per the clinical course # DVT and GI prophylaxis: Protonix twice daily Dispo: Plan for ARU once patient is able to take a few steps on his own-they reevaluated him 2 days ago. Result Diagram: 09/24/18 0609/24/18620 Results 24hrs Laboratory Tests Test 09/24/18 17:20 09/24/18 20:36 09/25/18 07:56 09/25/18 12:42 Bedside Glucose 101 99 106 104 Exam/Review of Systems Vital Signs Vitals Vital Signs Date Temp Pulse Resp B/P (MAP) Pulse Ox O2 O2 Flow FiO2 Time Delivery Rate 09/25/18 98.4 68 16 130/79 100 07:42 (96) 09/23/18 Room Air 07:35 Intake and Output 09/24/18 09/24/18 09/25/18 1515:00 23:00 07:00 IntakeIntake Total 1410 ml 720 ml 990 ml BalanceBalance 1410 ml 720 ml 990 ml Medications Medications Current Medications Miscellaneous Information 1 ea NOTE XX ; Start 08/21/18 at 16:30 Glucose (Glutose) 15 gm Q15M PRN PO DECREASED GLUCOSE; Start 08/21/18 at 16:30 Glucose (Glutose) 22.5 gm Q15M PRN PO DECREASED GLUCOSE; Start 08/21/18 at 16:30 Dextrose (D50w Syringe) 25 ml Q15M PRN IV DECREASED GLUCOSE; Start 08/21/18 at 16:30 Dextrose (D50w Syringe) 50 ml Q15M PRN IV DECREASED GLUCOSE; Start 08/21/18 at 16:30 Glucagon (Glucagen) 1 mg Q15M PRN IM DECREASED GLUCOSE; Start 08/21/18 at 16:30 Glucose (Glutose) 15 gm Q15M PRN BUCCAL DECREASED GLUCOSE; Start 08/21/18 at 16:30 Metoprolol Tartrate (Lopressor) 25 mg BID PO Last administered on 09/25/18at 08:15; Admin Dose 25 MG; Start 08/23/18 at 21:00 Ondansetron HCl (Zofran Inj) 4 mg Q6H PRN IV NAUSEA AND/OR VOMITING Last administered on 08/25/18at 21:47; Admin Dose 4 MG; Start 08/25/18 at 21:30 Diagnostic Test (Pha) (Accu-Chek) 1 ea 02 XX ; Start 08/27/18 at 02:00 Heparin Sodium (Porcine) (Heparin (5000 Units/1ml)) 5,000 unit Q8 SC Last administered on 09/01/18at 14:27; Admin Dose 5,000 UNIT; Start 08/29/18 at 14:00; Status Hold Albumin Human 50 ml @ 100 mls/hr DURING DIALYSIS PRN IV During HD. Last administered on 08/29/18at 13:55; Admin Dose 100 MLS/HR; Start 08/29/18 at 12:30 Aspirin (Aspirin) 81 mg DAILY PO Last administered on 09/03/18at 08:37; Admin Dose 81 MG; Start 08/30/18 at 09:00; Status Hold Sucralfate (Carafate Susp) 1 gm QID PO Last administered on 09/25/18 12:43; Admin Dose 1 GM; Start 09/01/18 at 16:00 Insulin Aspart (Novolog Insulin Pen) (Adult SC Insulin - Mild Algorithm)... AC MEALS AND BEDTIME SC Last administered on 09/12/18 12:51; Admin Dose 1 UNIT; Start 09/03/18 at 07:00 Sodium Chloride 1,000 ml @ 50 mls/hr Q20H IV Last administered on 09/25/18 12:44; Admin Dose 50 MLS/HR; Start 09/13/18 at 09:00 Pantoprazole (Protonix Tab) 40 mg DAILY@06 PO Last administered on 09/25/18 06:30; Admin Dose 40 MG; Start 09/19/18 at 06:00 Tramadol HCl (Ultram) 50 mg Q6H PRN PO MODERATE PAIN LEVEL 4-6 Last administered on 09/23/18 16:02; Admin Dose 50 MG; Start 09/23/18 at 15:00 CINTIA ESPINOSA Sep 25, 2018 12:52
[2018-09-25 13:53] VITALS: BP 128/88; PULSE 84; RESP 16
[2018-09-25 19:50] VITALS: BP 123/83; PULSE 84; RESP 18
[2018-09-26 01:19] VITALS: BP 131/87; PULSE 73; RESP 18
[2018-09-26] MEDS: ACCU-CHEK XX SCH (02:00)
[2018-09-26] MEDS: SOD CHLORIDE 0.45% 1,000 ML IV SCH ×2 (04:03→10:53)
[2018-09-26] MEDS: PANTOPRAZOLE (EC) 40 MG TAB PO SCH (06:09)
[2018-09-26] MEDS: INSULIN ASPART [NOVOLOG] 3 ML PEN SC SCH ×4 (07:00→21:00)
[2018-09-26 07:42] VITALS: BP 126/89; PULSE 74; RESP 16
[2018-09-26] MEDS: SUCRALFATE (100 MG/ML) 10ML CUP PO SCH ×4 (08:33→21:01)
[2018-09-26] MEDS: METOPROLOL 25 MG TAB PO SCH ×2 (08:34→21:01)
[2018-09-26 14:02] VITALS: BP 131/85; PULSE 68; RESP 16
--- NOTE | 2018-09-26 14:39 | PN ---
Date/Time of Note Date/Time of Note DATE: 09/26/18 TIME: 14:37 Assessment/Plan VTE Prophylaxis Risk score (from Ns)>0 risk: 2 SCD applied (from Ns): Yes SCD contraindicated: low risk/ambulating Pharmacological prophylaxis: NA/contraindicated Pharm contraindication: low risk/ambulating Lines/Catheters [facility] Peripheral IV Urinary Cath still in place: No Assessment/Plan Hospital Course 33 yo man brought in found down with subsequent JULIAN secondary to rhabdomyolysis; positive for alcohol, methamphetamine, cannabis, opioids as well. #Encephalopathy and Polyneuropathy- Despite extubation on 08/24, he remains lethargic and weak.- Head CT 08/20 negative- Repeat CT on 08/31 shows some edema of the basal ganglia, confirmed on MRI, this likely represents residual toxic metabolic effect - TSH, ammonia, AM cortisol are normal. CK has normalized-also there is associated with proximal muscle weakness but intact sensation-MRI C spine was most notable for signal changes within the paraspinal musculature of C3-C4 through C5-C6... which is likely a sequelae of rhabdomyolysis. - Monitor, follow-up recommendations from neurology/neurosurgery - Reorient as needed - Continue physical therapy and occupational therapy - Plan for ARU when patient is able to take a few steps on his own. # Renal failure- resolved now as BUN and creatinine levels are back to normal, patient has adequate urine output- Oliguric renal failure with hyperkalemia (after potassium replacement), also presented with severe metabolic acidosis- Likely due to a combination of rhabdo and drug use. -Monitor for now #Hematochezia- resolved- Nurse reported maroon colored stool on 09/01- EGD 09/02 only with mild gastritis and distal esophagitis- MD witnessed maroon colored, grainy stool on 09/03. Rectal exam negative for external hemorrhoids or palpable internal hemorrhoids. Colonoscopy showed solitary rectal ulcer syndrome, bleeding likely from the rectal ulcer. -Continue Protonix daily for regular ulcer PPx. #Bacteremia- Had fever on 08/27 - Blood culture (x1 unfortunately) from that day is growing coag negative staph, a common contaminant. Repeat blood culture negative.- D/Matias right IJ. But his femoral dialysis catheter may also be a source of infection -wound culture from the groin area where the dialysis catheter was grew positive Pseudomonas, Enterobacter, and VRE. Status post treatment with antibiotics for this infection. Tip of Saurabh catheter culture was positive for Rosa on September 09, 2018. -Monitor, follow-up ID recommendations -again Saurabh line was removed earlier this admission # acute respiratory failure- resolved, now on room air - extubated 08/24, was likely secondary to polysubstance overdose resulting in multiorgan dysfunction; patient had subsequent severe metabolic acidosis with inadequate respiratory compensation-now oxygen levels stable - s/p antibiotic treatment for CAP earlier this admission -Monitor, continue oxygen supplementation as needed # Elevated troponin-now appears stable- CV consulted earlier this admission. Likely demand ischemia from drug use. - Will not treat per NSTEMI protocol, monitor, follow-up cardiology recommendations # transaminitis: -resolved -May be from shock liver or drug use.- Hep B, Hep C n egative. LFTs have trended down. -Monitor for now # Rhabdomyolysis -occurred earlier this admission, patient required ICU care at that time, now resolved -Monitor # Coagulopathy- Resolved. # polysubstance abuse - Again patient was found to be positive for opioids, methamphetamine, marijuana and an elevated blood alcohol level. -Earlier this admission ordered for thiamine 300 mg IM daily times 3 days, further treatment as per the clinical course # DVT and GI prophylaxis: Protonix twice daily Dispo: Plan for ARU once patient is able to take a few steps on his own-they ree valuated him 2 days ago. Result Diagram: 09/26/18 0440 09/26/18 0440 Results 24hrs Laboratory Tests Test 09/25/18 17:24 09/25/18 21:27 09/26/18 04:40 09/26/18 08:34 Bedside Glucose 94 125 96 White Blood Count 6.6 Red Blood Count 4.24 L Hemoglobin 12.9 L Hematocrit 39.7 L Mean Corpuscular 93.6 Volume Mean Corpuscular 30.4 Hemoglobin Mean Corpuscular 32.5 Hemoglobin Concent Red Cell 13.9 Distribution Width Platelet Count 331 Mean Platelet Volume 10.3 Immature 0.300 Granulocytes % Neutrophils % 51.0 Lymphocytes % 32.4 Monocytes % 7.8 Eosinophils % 7.1 H Basophils % 1.4 Nucleated Red Blood 0.0 Cells % Immature 0.020 Granulocytes # Neutrophils # 3.4 Lymphocytes # 2.2 Monocytes # 0.5 Eosinophils # 0.5 Basophils # 0.1 Nucleated Red Blood 0.0 Cells # Sodium Level 139 Potassium Level 3.5 Chloride Level 100 Carbon Dioxide Level 27 Anion Gap 12 Blood Urea Nitrogen 22 H Creatinine 0.80 Est Glomerular > 60 Filtrat Rate mL/min Glucose Level 103 Calcium Level 10.0 Phosphorus Level 4.2 Magnesium Level 1.5 L Test 09/26/18 12:22 Bedside Glucose 92 Subjective 24 Hr Interval Summary Free Text/Dictation No acute overnight events. Patient out of bed to chair (with assistance from POSTING SPECIALIST) today. Exam/Review of Systems Vital Signs Vitals Vital Signs Date Temp Pulse Resp B/P (MAP) Pulse Ox O2 O2 Flow FiO2 Time Delivery Rate 09/26/18 98.3 68 16 131/85 100 14:02 (100) 09/23/18 Room Air 07:35 Intake and Output 09/25/18 09/25/18 09/26/18 1515:00 23:00 07:00 IntakeIntake Total 1450 ml 810 ml 1400 ml OutputOutput Total 1 ml BalanceBalance 1449 ml 810 ml 1400 ml Exam Gen: Lying in bed, more alert, but still overall lethargic Eyes: Pupils equal round reactive to light, extraocular muscles intact HEENT: PERRL, moist mucous membranes, Card: Regular rate and rhythm no murmurs Pulm: CTA bilaterally, no crackles. Abd: Soft, nondistended Ext: No cyanosis/clubbing/edema Neuro: Appears to still have mental slowing; there is a significant delay before answering questions. Otherwise, 4/5 strength throughout except for L foot drop. Medications Medications Current Medications Miscellaneous Information 1 ea NOTE XX ; Start 08/21/18 at 16:30 Glucose (Glutose) 15 gm Q15M PRN PO DECREASED GLUCOSE; Start 08/21/18 at 16:30 Glucose (Glutose) 22.5 gm Q15M PRN PO DECREASED GLUCOSE; Start 08/21/18 at 16:30 Dextrose (D50w Syringe) 25 ml Q15M PRN IV DECREASED GLUCOSE; Start 08/21/18 at 16:30 Dextrose (D50w Syringe) 50 ml Q15M PRN IV DECREASED GLUCOSE; Start 08/21/18 at 16:30 Glucagon (Glucagen) 1 mg Q15M PRN IM DECREASED GLUCOSE; Start 08/21/18 at 16:30 Glucose (Glutose) 15 gm Q15M PRN BUCCAL DECREASED GLUCOSE; Start 08/21/18 at 16:30 Metoprolol Tartrate (Lopressor) 25 mg BID PO Last administered on 09/26/18 08:34; Admin Dose 25 MG; Start 08/23/18 at 21:00 Ondansetron HCl (Zofran Inj) 4 mg Q6H PRN IV NAUSEA AND/OR VOMITING Last administered on 08/25/18at 21:47; Admin Dose 4 MG; Start 08/25/18 at 21:30 Diagnostic Test (Pha) (Accu-Chek) 1 ea 02 XX ; Start 08/27/18 at 02:00 Heparin Sodium (Porcine) (Heparin (5000 Units/1ml)) 5,000 unit Q8 SC Last administered on 09/01/18 14:27; Admin Dose 5,000 UNIT; Start 08/29/18 at 14:00; Status Hold Albumin Human 50 ml @ 100 mls/hr DURING DIALYSIS PRN IV During HD. Last administered on 08/29/18at 13:55; Admin Dose 100 MLS/HR; Start 08/29/18 at 12:30 Aspirin (Aspirin) 81 mg DAILY PO Last administered on 09/03/18 08:37; Admin Dose 81 MG; Start 08/30/18 at 09:00; Status Hold Sucralfate (Carafate Susp) 1 gm QID PO Last administered on 09/26/18 12:22; Admin Dose 1 GM; Start 09/01/18 at 16:00 Insulin Aspart (Novolog Insulin Pen) (Adult SC Insulin - Mild Algorithm)... AC MEALS AND BEDTIME SC Last administered on 09/12/18 12:51; Admin Dose 1 UNIT; Start 09/03/18 at 07:00 Sodium Chloride 1,000 ml @ 50 mls/hr Q20H IV Last administered on 09/26/18 10:53; Admin Dose 50 MLS/HR; Start 09/13/18 at 09:00 Pantoprazole (Protonix Tab) 40 mg DAILY@06 PO Last administered on 09/26/18 06:09; Admin Dose 40 MG; Start 09/19/18 at 06:00 Tramadol HCl (Ultram) 50 mg Q6H PRN PO MODERATE PAIN LEVEL 4-6 Last administered on 1/18/19at 16:02; Admin Dose 50 MG; Start 09/23/18 at 15:00 YUMIKO JC MD Sep 26, 2018 14:39
--- NOTE | 2018-09-26 16:15 | CONS ---
Date/Time of Note Date/Time of Note DATE: 09/26/18 TIME: 16:15 Assessment/Plan Assessment/Plan Assessment/Plan Acute respiratory failure status post extubation Low normal left ventricular ejection fraction 50% Sepsis Acute kidney injury, was on hemodialysis Myocardial infarction, likely type II Encephalopathy GI bleed Liver dysfunction Illicit drug use -Off aspirin secondary to GI bleed. Continue beta-kishan as tolerated. No new cardiac orders at the current time Result Diagram: 09/26/18 0440 09/26/18 0440 Results 24hrs Laboratory Tests Test 09/25/18 17:24 09/25/18 21:27 09/26/18 04:40 09/26/18 08:34 Bedside Glucose 94 125 96 White Blood Count 6.6 Red Blood Count 4.24 L Hemoglobin 12.9 L Hematocrit 39.7 L Mean Corpuscular 93.6 Volume Mean Corpuscular 30.4 Hemoglobin Mean Corpuscular 32.5 Hemoglobin Concent Red Cell 13.9 Distribution Width Platelet Count 331 Mean Platelet Volume 10.3 Immature 0.300 Granulocytes % Neutrophils % 51.0 Lymphocytes % 32.4 Monocytes % 7.8 Eosinophils % 7.1 H Basophils % 1.4 Nucleated Red Blood 0.0 Cells % Immature 0.020 Granulocytes # Neutrophils # 3.4 Lymphocytes # 2.2 Monocytes # 0.5 Eosinophils # 0.5 Basophils # 0.1 Nucleated Red Blood 0.0 Cells # Sodium Level 139 Potassium Level 3.5 Chloride Level 100 Carbon Dioxide Level 27 Anion Gap 12 Blood Urea Nitrogen 22 H Creatinine 0.80 Est Glomerular > 60 Filtrat Rate mL/min Glucose Level 103 Calcium Level 10.0 Phosphorus Level 4.2 Magnesium Level 1.5 L Test 09/26/18 12:22 Bedside Glucose 92 Consultation Date/Type/Reason Admit Date/Time Aug 20, 2018 at 21:39 Initial Consult Date 08/21/18 Type of Consult cv Requesting Provider: YUMIKO JC MD 24 HR Interval Summary Free Text/Dictation Patient seen and examined Exam/Review of Systems Vital Signs Vitals Vital Signs Date Temp Pulse Resp B/P (MAP) Pulse Ox O2 O2 Flow FiO2 Time Delivery Rate 09/26/18 98.3 68 16 131/85 100 14:02 (100) 09/23/18 Room Air 07:35 Intake and Output 1/20/19 1/20/19 1/21/19 1515:00 23:00 07:00 IntakeIntake Total 1450 ml 810 ml 1400 ml OutputOutput Total 1 ml BalanceBalance 1449 ml 810 ml 1400 ml Exam No apparent distress, following commands Constitutional: alert Head: normocephalic Respiratory: other (Coarse breath sounds bilaterally, no wheezing) Cardiovascular: regular rate and rhythm, other (S1-S2 heard) Gastrointestinal: soft, non-tender, bowel sounds Extremities: edema (Mild) Medications Medications Current Medications Miscellaneous Information 1 ea NOTE XX ; Start 08/21/18 at 16:30 Glucose (Glutose) 15 gm Q15M PRN PO DECREASED GLUCOSE; Start 08/21/18 at 16:30 Glucose (Glutose) 22.5 gm Q15M PRN PO DECREASED GLUCOSE; Start 08/21/18 at 16:30 Dextrose (D50w Syringe) 25 ml Q15M PRN IV DECREASED GLUCOSE; Start 08/21/18 at 16:30 Dextrose (D50w Syringe) 50 ml Q15M PRN IV DECREASED GLUCOSE; Start 08/21/18 at 16:30 Glucagon (Glucagen) 1 mg Q15M PRN IM DECREASED GLUCOSE; Start 08/21/18 at 16:30 Glucose (Glutose) 15 gm Q15M PRN BUCCAL DECREASED GLUCOSE; Start 08/21/18 at 16:30 Metoprolol Tartrate (Lopressor) 25 mg BID PO Last administered on 09/26/18at 08:34; Admin Dose 25 MG; Start 08/23/18 at 21:00 Ondansetron HCl (Zofran Inj) 4 mg Q6H PRN IV NAUSEA AND/OR VOMITING Last administered on 08/25/18at 21:47; Admin Dose 4 MG; Start 08/25/18 at 21:30 Diagnostic Test (Pha) (Accu-Chek) 1 ea 02 XX ; Start 08/27/18 at 02:00 Heparin Sodium (Porcine) (Heparin (5000 Units/1ml)) 5,000 unit Q8 SC Last administered on 09/01/18at 14:27; Admin Dose 5,000 UNIT; Start 08/29/18 at 14:00; Status Hold Albumin Human 50 ml @ 100 mls/hr DURING DIALYSIS PRN IV During HD. Last administered on 08/29/18at 13:55; Admin Dose 100 MLS/HR; Start 08/29/18 at 12:30 Aspirin (Aspirin) 81 mg DAILY PO Last administered on 09/03/18 08:37; Admin Dose 81 MG; Start 08/30/18 at 09:00; Status Hold Sucralfate (Carafate Susp) 1 gm QID PO Last administered on 09/26/18 12:22; Admin Dose 1 GM; Start 09/01/18 at 16:00 Insulin Aspart (Novolog Insulin Pen) (Adult SC Insulin - Mild Algorithm)... AC MEALS AND BEDTIME SC Last administered on 09/12/18 12:51; Admin Dose 1 UNIT; Start 09/03/18 at 07:00 Sodium Chloride 1,000 ml @ 50 mls/hr Q20H IV Last administered on 09/26/18 10:53; Admin Dose 50 MLS/HR; Start 09/13/18 at 09:00 Pantoprazole (Protonix Tab) 40 mg DAILY@06 PO Last administered on 09/26/18 06:09; Admin Dose 40 MG; Start 09/19/18 at 06:00 Tramadol HCl (Ultram) 50 mg Q6H PRN PO MODERATE PAIN LEVEL 4-6 Last administered on 09/23/18 16:02; Admin Dose 50 MG; Start 09/23/18 at 15:00 Kana Phoenix DO Sep 26, 2018 16:15
[2018-09-26 19:41] VITALS: BP 134/86; PULSE 57; RESP 18
[2018-09-27] MEDS: SOD CHLORIDE 0.45% 1,000 ML IV SCH ×3 (00:03→19:43)
[2018-09-27 01:31] VITALS: BP 127/79; PULSE 74; RESP 18
[2018-09-27] MEDS: ACCU-CHEK XX SCH (02:00)
[2018-09-27] MEDS: PANTOPRAZOLE (EC) 40 MG TAB PO SCH (05:52)
[2018-09-27] MEDS: INSULIN ASPART [NOVOLOG] 3 ML PEN SC SCH ×4 (07:00→20:57)
[2018-09-27 07:29] VITALS: BP 139/89; PULSE 67; RESP 20
[2018-09-27] MEDS: SUCRALFATE (100 MG/ML) 10ML CUP PO SCH ×4 (09:38→20:55)
[2018-09-27] MEDS: METOPROLOL 25 MG TAB PO SCH ×2 (09:38→20:56)
[2018-09-27] MEDS: traMADol 50 MG TAB PO PRN (12:02)
--- NOTE | 2018-09-27 13:32 | CONS ---
Assessment/Plan Assessment/Plan Assessment/Plan Acute respiratory failure status post extubation Low normal left ventricular ejection fraction 50% Sepsis Acute kidney injury, was on hemodialysis Myocardial infarction (NSTEMI) Encephalopathy GI bleed Liver dysfunction Illicit drug use -Off aspirin secondary to GI bleed. Continue beta-kishan as tolerated. No new cardiac orders at the current time Medical therapy for post OK - possible acei in the future, statin if liver fucntion stabel Result Diagram: 09/26/18 0440 09/26/18 0440 Results 24hrs Laboratory Tests Test 09/26/18 16:59 09/26/18 21:00 09/27/18 08:52 09/27/18 12:20 Bedside Glucose 91 95 107 126 Consultation Date/Type/Reason Admit Date/Time Aug 20, 2018 at 21:39 Initial Consult Date 09/01/18 Requesting Provider: YUMIKO JC MD 24 HR Interval Summary Free Text/Dictation The patient with no change Exam/Review of Systems Vital Signs Vitals Vital Signs Date Temp Pulse Resp B/P (MAP) Pulse Ox O2 O2 Flow FiO2 Time Delivery Rate 09/27/18 98.9 67 20 139/89 100 Room Air 07:29 (106) Intake and Output 09/26/18 09/26/18 09/27/18 1515:00 23:00 07:00 IntakeIntake Total 2440 ml 340 ml BalanceBalance 2440 ml 340 ml Medications Medications Current Medications Miscellaneous Information 1 ea NOTE XX ; Start 08/21/18 at 16:30 Glucose (Glutose) 15 gm Q15M PRN PO DECREASED GLUCOSE; Start 08/21/18 at 16:30 Glucose (Glutose) 22.5 gm Q15M PRN PO DECREASED GLUCOSE; Start 08/21/18 at 16:30 Dextrose (D50w Syringe) 25 ml Q15M PRN IV DECREASED GLUCOSE; Start 08/21/18 at 16:30 Dextrose (D50w Syringe) 50 ml Q15M PRN IV DECREASED GLUCOSE; Start 08/21/18 at 16:30 Glucagon (Glucagen) 1 mg Q15M PRN IM DECREASED GLUCOSE; Start 08/21/18 at 16:30 Glucose (Glutose) 15 gm Q15M PRN BUCCAL DECREASED GLUCOSE; Start 08/21/18 at 16:30 Metoprolol Tartrate (Lopressor) 25 mg BID PO Last administered on 09/27/18 09:38; Admin Dose 25 MG; Start 08/23/18 at 21:00 Ondansetron HCl (Zofran Inj) 4 mg Q6H PRN IV NAUSEA AND/OR VOMITING Last administered on 08/25/18 21:47; Admin Dose 4 MG; Start 08/25/18 at 21:30 Diagnostic Test (Pha) (Accu-Chek) 1 ea 02 XX ; Start 08/27/18 at 02:00 Heparin Sodium (Porcine) (Heparin (5000 Units/1ml)) 5,000 unit Q8 SC Last administered on 09/01/18 14:27; Admin Dose 5,000 UNIT; Start 08/29/18 at 14:00; Status Hold Albumin Human 50 ml @ 100 mls/hr DURING DIALYSIS PRN IV During HD. Last administered on 08/29/18 13:55; Admin Dose 100 MLS/HR; Start 08/29/18 at 12:30 Aspirin (Aspirin) 81 mg DAILY PO Last administered on 09/03/18 08:37; Admin Dose 81 MG; Start 08/30/18 at 09:00; Status Hold Sucralfate (Carafate Susp) 1 gm QID PO Last administered on 09/27/18 09:38; Admin Dose 1 GM; Start 09/01/18 at 16:00 Insulin Aspart (Novolog Insulin Pen) (Adult SC Insulin - Mild Algorithm)... AC MEALS AND BEDTIME SC Last administered on 09/12/18 12:51; Admin Dose 1 UNIT; Start 09/03/18 at 07:00 Sodium Chloride 1,000 ml @ 50 mls/hr Q20H IV Last administered on 09/27/18 07:05; Admin Dose 50 MLS/HR; Start 09/13/18 at 09:00 Pantoprazole (Protonix Tab) 40 mg DAILY@06 PO Last administered on 09/27/18 05:52; Admin Dose 40 MG; Start 09/19/18 at 06:00 Tramadol HCl (Ultram) 50 mg Q6H PRN PO MODERATE PAIN LEVEL 4-6 Last ad ministered on 09/27/18 12:02; Admin Dose 50 MG; Start 09/23/18 at 15:00 Date/Time of Note Date/Time of Note DATE: 09/27/18 TIME: 13:30 SUNIL LY MD Sep 27, 2018 13:32
--- NOTE | 2018-09-27 13:58 | PN ---
Date/Time of Note Date/Time of Note DATE: 09/27/18 TIME: 13:56 Assessment/Plan VTE Prophylaxis Risk score (from Ns)>0 risk: 3 SCD applied (from Ns): Yes Pharmacological prophylaxis: NA/contraindicated Pharm contraindication: low risk/ambulating Lines/Catheters IV Catheter Type (from Nrsg): Peripheral IV Urinary Cath still in place: No Assessment/Plan Hospital Course 33 yo man brought in found down with subsequent JULIAN secondary to rhabdomyolysis; positive for alcohol, methamphetamine, cannabis, opioids as well. #Encephalopathy and Polyneuropathy- Despite extubation on 08/24, he remains lethargic and weak.- Head CT 08/20 negative- Repeat CT on 08/31 shows some edema of the basal ganglia, confirmed on MRI, this likely represents residual toxic metabolic effect - TSH, ammonia, AM cortisol are normal. CK has normalized-also there is associated with proximal muscle weakness but intact sensation-MRI C spine was most notable for signal changes within the paraspinal musculature of C3-C4 through C5-C6... which is likely a sequelae of rhabdomyolysis. - Monitor, follow-up recommendations from neurology/neurosurgery - Reorient as needed - Continue physical therapy and occupational therapy - Plan for ARU when patient is able to take a few steps on his own. # Renal failure- resolved now as BUN and creatinine levels are back to normal, patient has adequate urine output- Oliguric renal failure with hyperkalemia (after potassium replacement), also presented with severe metabolic acidosis- Likely due to a combination of rhabdo and drug use. -Monitor for now #Hematochezia- resolved- Nurse reported maroon colored stool on 09/01- EGD 09/02 only with mild gastritis and distal esophagitis- MD witnessed maroon colored, grainy stool on 09/03. Rectal exam negative for external hemorrhoids or palpable internal hemorrhoids. Colonoscopy showed solitary rectal ulcer syndrome, bleeding likely from the rectal ulcer. -Continue Protonix daily for regular ulcer PPx. #Bacteremia- Had fever on 08/27 - Blood culture (x1 unfortunately) from that day is growing coag negative staph, a common contaminant. Repeat blood culture negative.- D/Matias right IJ. But his femoral dialysis catheter may also be a s ource of infection -wound culture from the groin area where the dialysis catheter was grew positive Pseudomonas, Enterobacter, and VRE. Status post treatment with antibiotics for this infection. Tip of Saurabh catheter culture was positive for Rosa on September 09, 2018. -Monitor, follow-up ID recommendations -again Saurabh line was removed earlier this admission # acute respiratory failure- resolved, now on room air - extubated 08/24, was likely secondary to polysubstance overdose resulting in multiorgan dysfunction; patient had subsequent severe metabolic acidosis with inadequate respiratory compensation-now oxygen levels stable - s/p antibiotic treatment for CAP earlier this admission -Monitor, continue oxygen supplementation as needed # Elevated troponin-now appears stable- CV consulted earlier this admission. Likely demand ischemia from drug use. - Will not treat per NSTEMI protocol, monitor, follow-up cardiology recommendations # transaminitis: -resolved -May be from shock liver or drug use.- Hep B, Hep C negative. LFTs have trended down. -Monitor for now # Rhabdomyolysis -occurred earlier this admission, patient required ICU care at that time, now resolved -Monitor # Coagulopathy- Resolved. # polysubstance abuse - Again patient was found to be positive for opioids, methamphetamine, marijuana and an elevated blood alcohol level. -Earlier this admission ordered for thiamine 300 mg IM daily times 3 days, further treatment as per the clinical course # DVT and GI prophylaxis: Protonix twice daily Dispo: Plan for ARU once patient is able to take a few steps on his own Result Diagram: 09/26/18 0440 09/26/18 0440 Results 24hrs Laboratory Tests Test 09/26/18 16:59 09/26/18 21:00 09/27/18 08:52 09/27/18 12:20 Bedside Glucose 91 95 107 126 Subjective 24 Hr Interval Summary Free Text/Dictation No acute overnight events. Patient lying in bed. Exam/Review of Systems Vital Signs Vitals Vital Signs Date Temp Pulse Resp B/P (MAP) Pulse Ox O2 O2 Flow FiO2 Time Delivery Rate 09/27/18 98.9 67 20 139/89 100 Room Air 07:29 (106) Intake and Output 09/26/18 09/26/18 09/27/18 1515:00 23:00 07:00 IntakeIntake Total 2440 ml 340 ml BalanceBalance 2440 ml 340 ml Exam Gen: Lying in bed, more alert, awake Eyes: Pupils equal round reactive to light, extraocular muscles intact HEENT: PERRL, moist mucous membranes, Card: Regular rate and rhythm no murmurs Pulm: CTA bilaterally, no crackles. Abd: Soft, nondistended Ext: No cyanosis/clubbing/edema Neuro: Appears to still have mental slowing; there is a significant delay before answering questions. Otherwise, 4/5 strength throughout except for L foot drop. Medications Medications Current Medications Miscellaneous Information 1 ea NOTE XX ; Start 08/21/18 at 16:30 Glucose (Glutose) 15 gm Q15M PRN PO DECREASED GLUCOSE; Start 08/21/18 at 16:30 Glucose (Glutose) 22.5 gm Q15M PRN PO DECREASED GLUCOSE; Start 08/21/18 at 16: 30 Dextrose (D50w Syringe) 25 ml Q15M PRN IV DECREASED GLUCOSE; Start 08/21/18 at 16:30 Dextrose (D50w Syringe) 50 ml Q15M PRN IV DECREASED GLUCOSE; Start 08/21/18 at 16:30 Glucagon (Glucagen) 1 mg Q15M PRN IM DECREASED GLUCOSE; Start 08/21/18 at 16:30 Glucose (Glutose) 15 gm Q15M PRN BUCCAL DECREASED GLUCOSE; Start 08/21/18 at 16:30 Metoprolol Tartrate (Lopressor) 25 mg BID PO Last administered on 09/27/18at 09:38; Admin Dose 25 MG; Start 08/23/18 at 21:00 Ondansetron HCl (Zofran Inj) 4 mg Q6H PRN IV NAUSEA AND/OR VOMITING Last administered on 08/25/18at 21:47; Admin Dose 4 MG; Start 08/25/18 at 21:30 Diagnostic Test (Pha) (Accu-Chek) 1 ea 02 XX ; Start 08/27/18 at 02:00 Heparin Sodium (Porcine) (Heparin (5000 Units/1ml)) 5,000 unit Q8 SC Last administered on 09/01/18at 14:27; Admin Dose 5,000 UNIT; Start 08/29/18 at 14:00; Status Hold Albumin Human 50 ml @ 100 mls/hr DURING DIALYSIS PRN IV During HD. Last administered on 08/29/18at 13:55; Admin Dose 100 MLS/HR; Start 08/29/18 at 12:30 Aspirin (Aspirin) 81 mg DAILY PO Last administered on 09/03/18at 08:37; Admin D ose 81 MG; Start 08/30/18 at 09:00; Status Hold Sucralfate (Carafate Susp) 1 gm QID PO Last administered on 09/27/18 13:45; Admin Dose 1 GM; Start 09/01/18 at 16:00 Insulin Aspart (Novolog Insulin Pen) (Adult SC Insulin - Mild Algorithm)... AC MEALS AND BEDTIME SC Last administered on 09/12/18 12:51; Admin Dose 1 UNIT; Start 09/03/18 at 07:00 Sodium Chloride 1,000 ml @ 50 mls/hr Q20H IV Last administered on 09/27/18 07:05; Admin Dose 50 MLS/HR; Start 09/13/18 at 09:00 Pantoprazole (Protonix Tab) 40 mg DAILY@06 PO Last administered on 09/27/18 05:52; Admin Dose 40 MG; Start 09/19/18 at 06:00 Tramadol HCl (Ultram) 50 mg Q6H PRN PO MODERATE PAIN LEVEL 4-6 Last administered on 09/27/18 12:02; Admin Dose 50 MG; Start 09/23/18 at 15:00 YUMIKO JC MD Sep 27, 2018 13:58
[2018-09-27 14:00] VITALS: BP 131/88; PULSE 79; RESP 20
[2018-09-27 20:00] VITALS: BP 116/75; PULSE 98; RESP 20
[2018-09-28] MEDS: ACCU-CHEK XX SCH (01:32)
[2018-09-28 02:00] VITALS: BP 128/60; RESP 20
[2018-09-28] MEDS: SOD CHLORIDE 0.45% 1,000 ML IV SCH ×2 (03:25→16:03)
[2018-09-28] MEDS: PANTOPRAZOLE (EC) 40 MG TAB PO SCH (05:46)
[2018-09-28] MEDS: INSULIN ASPART [NOVOLOG] 3 ML PEN SC SCH ×4 (07:00→20:56)
[2018-09-28 07:48] VITALS: BP 147/88; PULSE 70; RESP 18
[2018-09-28] MEDS: METOPROLOL 25 MG TAB PO SCH ×2 (08:24→20:56)
[2018-09-28] MEDS: SUCRALFATE (100 MG/ML) 10ML CUP PO SCH ×4 (08:24→20:56)
--- NOTE | 2018-09-28 12:47 | CONS ---
Assessment/Plan Assessment/Plan Assessment/Plan Acute respiratory failure status post extubation Low normal left ventricular ejection fraction 50% Sepsis Acute kidney injury, was on hemodialysis Myocardial infarction (NSTEMI) Encephalopathy GI bleed Liver dysfunction Illicit drug use -Off aspirin secondary to GI bleed. Continue beta-kishan as tolerated. No new cardiac orders at the current time Medical therapy for post NE - possible statin in the future if liver funtion stable -add ramipril due to post NE Consultation Date/Type/Reason Admit Date/Time Aug 20, 2018 at 21:39 Initial Consult Date 09/01/18 Type of Consult Cardiology Requesting Provider: YUMIKO JC MD Date/Time of Note DATE: 09/28/18 TIME: 12:46 24 HR Interval Summary Free Text/Dictation The patient with no change Exam/Review of Systems Vital Signs Vitals Vital Signs Date Temp Pulse Resp B/P (MAP) Pulse Ox O2 O2 Flow FiO2 Time Delivery Rate 09/28/18 98.3 70 18 147/88 100 Room Air 07:48 (107) Intake and Output 09/27/18 09/27/18 09/28/18 1515:00 23:00 07:00 IntakeIntake Total 1000 ml 1100 ml 575 ml BalanceBalance 1000 ml 1100 ml 575 ml Labs Result Diagram: 09/28/18 0427 09/28/18 0427 Results 24hrs Laboratory Tests Test 09/27/18 17:45 09/27/18 20:57 09/28/18 04:27 09/28/18 08:23 Bedside Glucose 104 126 94 White Blood Count 6.9 Red Blood Count 4.21 L Hemoglobin 12.8 L Hematocrit 39.1 L Mean Corpuscular 92.9 Volume Mean Corpuscular 30.4 Hemoglobin Mean Corpuscular 32.7 Hemoglobin Concent Red Cell 13.6 Distribution Width Platelet Count 286 Mean Platelet Volume 10.4 Immature 0.100 Granulocytes % Neutrophils % 52.1 Lymphocytes % 31.2 Monocytes % 7.3 Eosinophils % 7.7 H Basophils % 1.6 Nucleated Red Blood 0.0 Cells % Immature 0.010 Granulocytes # Neutrophils # 3.6 Lymphocytes # 2.1 Monocytes # 0.5 Eosinophils # 0.5 Basophils # 0.1 Nucleated Red Blood 0.0 Cells # Sodium Level 142 Potassium Level 3.6 Chloride Level 100 Carbon Dioxide Level 28 Anion Gap 14 H Blood Urea Nitrogen 21 H Creatinine 0.74 Est Glomerular > 60 Filtrat Rate mL/min Glucose Level 104 Calcium Level 9.9 Phosphorus Level 4.1 Magnesium Level 1.5 L SUNIL LY MD Sep 28, 2018 12:47
[2018-09-28 13:44] VITALS: BP 122/83; PULSE 72; RESP 18
--- NOTE | 2018-09-28 15:12 | PN ---
Date/Time of Note Date/Time of Note DATE: 09/28/18 TIME: 15:11 Assessment/Plan VTE Prophylaxis Risk score (from Nsg)>0 risk: 2 SCD applied (from Nsg): Yes Pharmacological prophylaxis: heparin Lines/Catheters IV Catheter Type (from Nrsg): Peripheral IV Urinary Cath still in place: No Assessment/Plan Hospital Course 33 yo man brought in found down with subsequent JULIAN secondary to rhabdomyolysis; positive for alcohol, methamphetamine, cannabis, opioids as well. #Encephalopathy and Polyneuropathy- Despite extubation on 08/24, he remains lethargic and weak.- Head CT 08/20 negative- Repeat CT on 08/31 shows some edema of the basal ganglia, confirmed on MRI, this likely represents residual toxic metabolic effect - TSH, ammonia, AM cortisol are normal. CK has normalized-also there is associated with proximal muscle weakness but intact sensation-MRI C spine was most notable for signal changes within the paraspinal musculature of C3-C4 through C5-C6... which is likely a sequelae of rhabdomyolysis. - Monitor, follow-up recommendations from neurology/neurosurgery - Reorient as needed - Continue physical therapy and occupational therapy - Plan for ARU when patient is able to take a few steps on his own. # Renal failure- resolved now as BUN and creatinine levels are back to normal, patient has adequate urine output- Oliguric renal failure with hyperkalemia (after potassium replacement), also presented with severe metabolic acidosis- Likely due to a combination of rhabdo and drug use. -Monitor for now #Hematochezia- resolved- Nurse reported maroon colored stool on 09/01- EGD 09/02 only with mild gastritis and distal esophagitis- MD witnessed maroon colored, grainy stool on 09/03. Rectal exam negative for external hemorrhoids or palpable internal hemorrhoids. Colonoscopy showed solitary rectal ulcer syndrome, bleeding likely from the rectal ulcer. -Continue Protonix daily for regular ulcer PPx. #Bacteremia- Had fever on 08/27 - Blood culture (x1 unfortunately) from that day is growing coag negative staph, a common contaminant. Repeat blood culture negative.- D/Matias right IJ. But his femoral dialysis catheter may also be a source of infection -wound culture from the groin area where the dialysis cath eter was grew positive Pseudomonas, Enterobacter, and VRE. Status post treatment with antibiotics for this infection. Tip of Saurabh catheter culture was positive for Rosa on September 09, 2018. -Monitor, follow-up ID recommendations -again Saurabh line was removed earlier this admission # acute respiratory failure- resolved, now on room air - extubated 08/24, was likely secondary to polysubstance overdose resulting in multiorgan dysfunction; patient had subsequent severe metabolic acidosis with inadequate respiratory compensation-now oxygen levels stable - s/p antibiotic treatment for CAP earlier this admission -Monitor, continue oxygen supplementation as needed # Elevated troponin-now appears stable- CV consulted earlier this admission. Likely demand ischemia from drug use. - Will not treat per NSTEMI protocol, monitor, follow-up cardiology recommendations # transaminitis: -resolved -May be from shock liver or drug use.- Hep B, Hep C negative. LFTs have trended down. -Monitor for now # Rhabdomyolysis -occurred earlier this admission, patient required ICU care at that time, now resolved -Monitor # Coagulopathy- Resolved. # polysubstance abuse - Again patient was found to be positive for opioids, methamphetamine, marijuana and an elevated blood alcohol level. -Earlier this admission ordered for thiamine 300 mg IM daily times 3 days, further treatment as per the clinical course # DVT and GI prophylaxis: Protonix twice daily Dispo: Plan for ARU once patient is able to take a few steps on his own Result Diagram: 09/28/18 0427 09/28/18426 Results 24hrs Laboratory Tests Test 09/27/18 17:45 09/27/18 20:57 09/28/18 04:27 09/28/18 08:23 Bedside Glucose 104 126 94 White Blood Count 6.9 Red Blood Count 4.21 L Hemoglobin 12.8 L Hematocrit 39.1 L Mean Corpuscular 92.9 Volume Mean Corpuscular 30.4 Hemoglobin Mean Corpuscular 32.7 Hemoglobin Concent Red Cell 13.6 Distribution Width Platelet Count 286 Mean Platelet Volume 10.4 Immature 0.100 Granulocytes % Neutrophils % 52.1 Lymphocytes % 31.2 Monocytes % 7.3 Eosinophils % 7.7 H Basophils % 1.6 Nucleated Red Blood 0.0 Cells % Immature 0.010 Granulocytes # Neutrophils # 3.6 Lymphocytes # 2.1 Monocytes # 0.5 Eosinophils # 0.5 Basophils # 0.1 Nucleated Red Blood 0.0 Cells # Sodium Level 142 Potassium Level 3.6 Chloride Level 100 Carbon Dioxide Level 28 Anion Gap 14 H Blood Urea Nitrogen 21 H Creatinine 0.74 Est Glomerular > 60 Filtrat Rate mL/min Glucose Level 104 Calcium Level 9.9 Phosphorus Level 4.1 Magnesium Level 1.5 L Test 09/28/18 12:46 Bedside Glucose 132 Subjective 24 Hr Interval Summary Free Text/Dictation No acute overnight events. Patient resting comfortably. Exam/Review of Systems Vital Signs Vitals Vital Signs Date Temp Pulse Resp B/P (MAP) Pulse Ox O2 O2 Flow FiO2 Time Delivery Rate 09/28/18 98.4 72 18 122/83 99 Room Air 13:44 (96) Intake and Output 09/27/18 09/27/18 09/28/18 1414:59 22:59 06:59 IntakeIntake Total 1000 ml 1100 ml 575 ml BalanceBalance 1000 ml 1100 ml 575 ml Exam Gen: Lying in bed, more alert, awake Eyes: Pupils equal round reactive to light, extraocular muscles intact HEENT: PERRL, moist mucous membranes, Card: Regular rate and rhythm no murmurs Pulm: CTA bilaterally, no crackles. Abd: Soft, nondistended Ext: No cyanosis/clubbing/edema Neuro: Appears to still have mental slowing; there is a significant delay before answering questions. Otherwise, 4/5 strength throughout except for L foot drop. Medications Medications Current Medications Miscellaneous Information 1 ea NOTE XX ; Start 08/21/18 at 16:30 Glucose (Glutose) 15 gm Q15M PRN PO DECREASED GLUCOSE; Start 08/21/18 at 16:30 Glucose (Glutose) 22.5 gm Q15M PRN PO DECREASED GLUCOSE; Start 08/21/18 at 16:30 Dextrose (D50w Syringe) 25 ml Q15M PRN IV DECREASED GLUCOSE; Start 08/21/18 at 16:30 Dextrose (D50w Syringe) 50 ml Q15M PRN IV DECREASED GLUCOSE; Start 08/21/18 at 16:30 Glucagon (Glucagen) 1 mg Q15M PRN IM DECREASED GLUCOSE; Start 08/21/18 at 16:30 Glucose (Glutose) 15 gm Q15M PRN BUCCAL DECREASED GLUCOSE; Start 08/21/18 at 16:30 Metoprolol Tartrate (Lopressor) 25 mg BID PO Last administered on 09/28/18at 08:24; Admin Dose 25 MG; Start 12/18/18 at 21:00 Ondansetron HCl (Zofran Inj) 4 mg Q6H PRN IV NAUSEA AND/OR VOMITING Last administered on 08/25/18at 21:47; Admin Dose 4 MG; Start 08/25/18 at 21:30 Diagnostic Test (Pha) (Accu-Chek) 1 ea 02 XX ; Start 08/27/18 at 02:00 Heparin Sodium (Porcine) (Heparin (5000 Units/1ml)) 5,000 unit Q8 SC Last administered on 09/01/18at 14:27; Admin Dose 5,000 UNIT; Start 08/29/18 at 14:00; Status Hold Albumin Human 50 ml @ 100 mls/hr DURING DIALYSIS PRN IV During HD. Last administered on 08/29/18 13:55; Admin Dose 100 MLS/HR; Start 08/29/18 at 12:30 Aspirin (Aspirin) 81 mg DAILY PO Last administered on 09/03/18at 08:37; Admin Dose 81 MG; Start 08/30/18 at 09:00; Status Hold Sucralfate (Carafate Susp) 1 gm QID PO Last administered on 09/28/18 13:15; Admin Dose 1 GM; Start 09/01/18 at 16:00 Insulin Aspart (Novolog Insulin Pen) (Adult SC Insulin - Mild Algorithm)... AC MEALS AND BEDTIME SC Last administered on 09/12/18 12:51; Admin Dose 1 UNIT; Start 09/03/18 at 07:00 Sodium Chloride 1,000 ml @ 50 mls/hr Q20H IV Last administered on 09/28/18 03:25; Admin Dose 50 MLS/HR; Start 09/13/18 at 09:00 Pantoprazole (Protonix Tab) 40 mg DAILY@06 PO Last administered on 09/28/18 05:46; Admin Dose 40 MG; Start 09/19/18 at 06:00 Tramadol HCl (Ultram) 50 mg Q6H PRN PO MODERATE PAIN LEVEL 4-6 Last administered on 09/27/18 12:02; Admin Dose 50 MG; Start 09/23/18 at 15:00 Lisinopril (Zestril) 5 mg DAILY PO ; Start 09/28/18 at 14:00 YUMIKO JC MD Sep 28, 2018 15:12
[2018-09-28] MEDS: LISINOPRIL 5 MG TAB PO SCH (18:16)
[2018-09-28 19:59] VITALS: BP 120/80; PULSE 86; RESP 18
[2018-09-29] MEDS: SOD CHLORIDE 0.45% 1,000 ML IV SCH ×3 (00:49→22:59)
[2018-09-29] MEDS: ACCU-CHEK XX SCH (01:13)
[2018-09-29 01:38] VITALS: BP 114/81; PULSE 70; RESP 18
[2018-09-29] MEDS: PANTOPRAZOLE (EC) 40 MG TAB PO SCH (05:58)
[2018-09-29] MEDS: INSULIN ASPART [NOVOLOG] 3 ML PEN SC SCH ×4 (07:00→21:10)
[2018-09-29 07:27] VITALS: BP 127/80; PULSE 65; RESP 18
[2018-09-29] MEDS: traMADol 50 MG TAB PO PRN (07:36)
--- NOTE | 2018-09-29 07:57 | CONS ---
Assessment/Plan Assessment/Plan Assessment/Plan S/P respiratory failure status post extubation Low normal left ventricular ejection fraction 50% Sepsis S/P Acute kidney injury, was on hemodialysis Myocardial infarction (NSTEMI) Encephalopathy GI bleed Liver dysfunction Illicit drug use -Off aspirin secondary to GI bleed. Continue beta-kishan as tolerated. No new cardiac orders at the current time -Medical therapy for post OH - possible statin in the future if liver funtion stable -now on zestril post OH Consultation Date/Type/Reason Admit Date/Time Aug 20, 2018 at 21:39 Initial Consult Date 09/01/18 Type of Consult Cardiology Requesting Provider: YUMIKO JC MD Date/Time of Note DATE: 09/29/18 TIME: 07:56 24 HR Interval Summary Free Text/Dictation The patient with no chnge Exam/Review of Systems Vital Signs Vitals Vital Signs Date Temp Pulse Resp B/P (MAP) Pulse Ox O2 O2 Flow FiO2 Time Delivery Rate 09/29/18 98.4 65 18 127/80 100 Room Air 07:27 (96) Intake and Output 09/28/18 09/28/18 09/29/18 1515:00 23:00 07:00 IntakeIntake Total 1680 ml 960 ml 575 ml OutputOutput Total 300 ml BalanceBalance 1380 ml 960 ml 575 ml Labs Result Diagram: 09/28/1842609/28/187 Results 24hrs Laboratory Tests Test 09/28/18 08:23 09/28/18 12:46 09/28/18 17:54 09/28/18 20:55 Bedside Glucose 94 132 100 128 SUNIL LY MD Sep 29, 2018 07:57
[2018-09-29] MEDS: LISINOPRIL 5 MG TAB PO SCH (08:17)
[2018-09-29] MEDS: METOPROLOL 25 MG TAB PO SCH ×2 (08:18→21:04)
[2018-09-29] MEDS: SUCRALFATE (100 MG/ML) 10ML CUP PO SCH ×4 (08:18→21:04)
[2018-09-29 14:31] VITALS: BP 119/76; PULSE 77; RESP 18
--- NOTE | 2018-09-29 17:29 | PN ---
Date/Time of Note Date/Time of Note DATE: 09/29/18 TIME: 17:28 Assessment/Plan VTE Prophylaxis Risk score (from Nsg)>0 risk: 1 SCD applied (from Nsg): Yes Pharmacological prophylaxis: NA/contraindicated Pharm contraindication: low risk/ambulating Lines/Catheters IV Catheter Type (from Nrsg): Peripheral IV Urinary Cath still in place: No Assessment/Plan Hospital Course 33 yo man brought in found down with subsequent JULIAN secondary to rhabdomyolysis; positive for alcohol, methamphetamine, cannabis, opioids as well. #Encephalopathy and Polyneuropathy- Despite extubation on 08/24, he remains lethargic and weak.- Head CT 08/20 negative- Repeat CT on 08/31 shows some edema of the basal ganglia, confirmed on MRI, this likely represents residual toxic metabolic effect - TSH, ammonia, AM cortisol are normal. CK has normalized-also there is associated with proximal muscle weakness but intact sensation-MRI C spine was most notable for signal changes within the paraspinal musculature of C3-C4 through C5-C6... which is likely a sequelae of rhabdomyolysis. - Monitor, follow-up recommendations from neurology/neurosurgery - Reorient as needed - Continue physical therapy and occupational therapy - Plan for ARU when patient is able to take a few steps on his own. # Renal failure- resolved now as BUN and creatinine levels are back to normal, patient has adequate urine output- Oliguric renal failure with hyperkalemia (after potassium replacement), also presented with severe metabolic acidosis- Likely due to a combination of rhabdo and drug use. -Monitor for now #Hematochezia- resolved- Nurse reported maroon colored stool on 09/01- EGD 09/02 only with mild gastritis and distal esophagitis- MD witnessed maroon colored, grainy stool on 09/03. Rectal exam negative for external hemorrhoids or palpable internal hemorrhoids. Colonoscopy showed solitary rectal ulcer syndrome, bleeding likely from the rectal ulcer. -Continue Protonix daily for regular ulcer PPx. #Bacteremia- Had fever on 08/27 - Blood culture (x1 unfortunately) from that day is growing coag negative staph, a common contaminant. Repeat blood culture negative.- D/Matias right IJ. But his femoral dialysis catheter may also be a s ource of infection -wound culture from the groin area where the dialysis catheter was grew positive Pseudomonas, Enterobacter, and VRE. Status post treatment with antibiotics for this infection. Tip of Saurabh catheter culture was positive for Rosa on September 09, 2018. -Monitor, follow-up ID recommendations -again Saurabh line was removed earlier this admission # acute respiratory failure- resolved, now on room air - extubated 08/24, was likely secondary to polysubstance overdose resulting in multiorgan dysfunction; patient had subsequent severe metabolic acidosis with inadequate respiratory compensation-now oxygen levels stable - s/p antibiotic treatment for CAP earlier this admission -Monitor, continue oxygen supplementation as needed # Elevated troponin-now appears stable- CV consulted earlier this admission. Likely demand ischemia from drug use. - Will not treat per NSTEMI protocol, monitor, follow-up cardiology recommendations # transaminitis: -resolved -May be from shock liver or drug use.- Hep B, Hep C negative. LFTs have trended down. -Monitor for now # Rhabdomyolysis -occurred earlier this admission, patient required ICU care at that time, now resolved -Monitor # Coagulopathy- Resolved. # polysubstance abuse - Again patient was found to be positive for opioids, methamphetamine, marijuana and an elevated blood alcohol level. -Earlier this admission ordered for thiamine 300 mg IM daily times 3 days, further treatment as per the clinical course # DVT and GI prophylaxis: Protonix twice daily Dispo: Plan for ARU once patient is able to take a few steps on his own Result Diagram: 09/28/187 09/28/187 Results 24hrs Laboratory Tests Test 09/28/18 17:54 09/28/18 20:55 09/29/18 08:16 09/29/18 13:14 Bedside Glucose 100 128 98 132 Test 09/29/18 17:14 Bedside Glucose 98 Subjective 24 Hr Interval Summary Free Text/Dictation Patient sleeping comfortably. Worked with PT earlier today. Exam/Review of Systems Exam Vitals Gen: Lying in bed, sleeping comfortably. Eyes: Pupils equal round reactive to light, extraocular muscles intact HEENT: PERRL, moist mucous membranes, Card: Regular rate and rhythm no murmurs Pulm: CTA bilaterally, no crackles. Abd: Soft, nondistended Ext: No cyanosis/clubbing/edema Neuro: Appears to still have mental slowing; there is a significant delay before answering questions. Otherwise, 4/5 strength throughout except for L foot drop. Results Results 24hrs Laboratory Tests Test 09/28/18 17:54 09/28/18 20:55 09/29/18 08:16 09/29/18 13:14 Bedside Glucose 100 128 98 132 Test 09/29/18 17:14 Bedside Glucose 98 YUMIKO JC MD Sep 29, 2018 17:29
[2018-09-29 20:01] VITALS: BP 111/74; PULSE 75; RESP 18
[2018-09-30] MEDS: ACCU-CHEK XX SCH (02:00)
[2018-09-30 02:17] VITALS: BP 108/67; PULSE 101; RESP 20
[2018-09-30] MEDS: PANTOPRAZOLE (EC) 40 MG TAB PO SCH (05:35)
[2018-09-30] MEDS: INSULIN ASPART [NOVOLOG] 3 ML PEN SC SCH ×4 (07:00→20:47)
[2018-09-30 07:30] VITALS: BP 115/68; PULSE 67; RESP 16
[2018-09-30 08:00] VITALS: BP 110/71; PULSE 105; RESP 20
[2018-09-30] MEDS: SOD CHLORIDE 0.45% 1,000 ML IV SCH ×2 (08:03→18:00)
[2018-09-30] MEDS: SUCRALFATE (100 MG/ML) 10ML CUP PO SCH ×4 (08:15→20:45)
[2018-09-30] MEDS: LISINOPRIL 5 MG TAB PO SCH (08:15)
[2018-09-30] MEDS: METOPROLOL 25 MG TAB PO SCH ×2 (08:15→20:21)
--- NOTE | 2018-09-30 09:03 | CONS ---
Assessment/Plan Assessment/Plan Assessment/Plan (Daily) S/P respiratory failure status post extubation Low normal left ventricular ejection fraction 50% Sepsis S/P Acute kidney injury, was on hemodialysis Myocardial infarction (NSTEMI) Encephalopathy GI bleed Liver dysfunction Illicit drug use -Off aspirin secondary to GI bleed. Continue beta-kishan as tolerated. No new cardiac orders at the current time -Medical therapy for post CO - possible statin in the future if liver funtion stable -now on zestril post CO Consultation Date/Type/Reason Admit Date/Time Aug 20, 2018 at 21:39 Initial Consult Date 09/01/18 Type of Consult Cardiology Requesting Provider: YUMIKO JC MD Date/Time of Note DATE: 09/30/18 TIME: 09:02 24 HR Interval Summary Free Text/Dictation The daptient with no cahgne Exam/Review of Systems Vital Signs Vitals Vital Signs Date Temp Pulse Resp B/P (MAP) Pulse Ox O2 O2 Flow FiO2 Time Delivery Rate 09/30/18 98.2 67 16 115/68 100 07:30 (84) 09/29/18 Room Air 14:31 Intake and Output 09/29/18 09/29/18 09/30/18 1414:59 22:59 06:59 IntakeIntake Total 1330 ml 980 ml 350 ml BalanceBalance 1330 ml 980 ml 350 ml Labs Result Diagram: 09/28/1842609/28/187 Results 24hrs Laboratory Tests Test 09/29/18 13:14 09/29/18 17:14 09/29/18 21:04 09/30/18 04:06 Bedside Glucose 132 98 146 118 Test 09/30/18 08:14 Bedside Glucose 130 SUNIL LY MD Sep 30, 2018 09:03
[2018-09-30 13:29] VITALS: BP 110/72; PULSE 72; RESP 16
--- NOTE | 2018-09-30 15:13 | PN ---
Date/Time of Note Date/Time of Note DATE: 09/30/18 TIME: 15:12 Assessment/Plan VTE Prophylaxis Risk score (from Nsg)>0 risk: 1 SCD applied (from Ns): Yes Pharmacological prophylaxis: NA/contraindicated Pharm contraindication: bleeding Lines/Catheters IV Catheter Type (from Nrsg): Peripheral IV Urinary Cath still in place: No Assessment/Plan Hospital Course 33 yo man brought in found down with subsequent JULIAN secondary to rhabdomyolysis; positive for alcohol, methamphetamine, cannabis, opioids as well. #Encephalopathy and Polyneuropathy- Despite extubation on 08/24, he remains lethargic and weak.- Head CT 08/20 negative- Repeat CT on 08/31 shows some edema of the basal ganglia, confirmed on MRI, this likely represents residual toxic metabolic effect - TSH, ammonia, AM cortisol are normal. CK has normalized-also there is associated with proximal muscle weakness but intact sensation-MRI C spine was most notable for signal changes within the paraspinal musculature of C3-C4 through C5-C6... which is likely a sequelae of rhabdomyolysis. - Monitor, follow-up recommendations from neurology/neurosurgery - Reorient as needed - Continue physical therapy and occupational therapy - Plan for ARU when patient is able to take a few steps on his own. # Renal failure- resolved now as BUN and creatinine levels are back to normal, patient has adequate urine output- Oliguric renal failure with hyperkalemia (after potassium replacement), also presented with severe metabolic acidosis- Likely due to a combination of rhabdo and drug use. -Monitor for now #Hematochezia- resolved- Nurse reported maroon colored stool on 09/01- EGD 09/02 only with mild gastritis and distal esophagitis- MD witnessed maroon colored, grainy stool on 09/03. Rectal exam negative for external hemorrhoids or palpable internal hemorrhoids. Colonoscopy showed solitary rectal ulcer syndrome, bleeding likely from the rectal ulcer. -Continue Protonix daily for regular ulcer PPx. #Bacteremia- Had fever on 08/27 - Blood culture (x1 unfortunately) from that day is growing coag negative staph, a common contaminant. Repeat blood culture negative.- D/Matias right IJ. But his femoral dialysis catheter may also be a source of infection -wound culture from the groin area where the dialysis catheter was grew positive Pseudomonas, Enterobacter, and VRE. Status post treatment with antibiotics for this infection. Tip of Saurabh catheter culture was positive for Rosa on September 09, 2018. -Monitor, follow-up ID recommendations -again Saurabh line was removed earlier this admission # acute respiratory failure- resolved, now on room air - extubated 08/24, was likely secondary to polysubstance overdose resulting in multiorgan dysfunction; patient had subsequent severe metabolic acidosis with inadequate respiratory compensation-now oxygen levels stable - s/p antibiotic treatment for CAP earlier this admission -Monitor, continue oxygen supplementation as needed # Elevated troponin-now appears stable- CV consulted earlier this admission. Likely demand ischemia from drug use. - Will not treat per NSTEMI protocol, monitor, follow-up cardiology recommendations # transaminitis: -resolved -May be from shock liver or drug use.- Hep B, Hep C negative. LFTs have trended down. -Monitor for now # Rhabdomyolysis -occurred earlier this admission, patient required ICU care at that time, now resolved -Monitor # Coagulopathy- Resolved. # polysubstance abuse - Again patient was found to be positive for opioids, met hamphetamine, marijuana and an elevated blood alcohol level. -Earlier this admission ordered for thiamine 300 mg IM daily times 3 days, further treatment as per the clinical course # DVT and GI prophylaxis: Protonix twice daily Dispo: Patient's neuromuscular recovery appears to have plateaued. He's unlikely to significantly advance in ARU. At this time, SNF evaluation may be better. Result Diagram: 09/28/18 0427 09/28/18 0427 Results 24hrs Laboratory Tests Test 09/29/18 17:14 09/29/18 21:04 09/30/18 04:06 09/30/18 08:14 Bedside Glucose 98 146 118 130 Test 09/30/18 12:34 Bedside Glucose 94 Subjective 24 Hr Interval Summary Free Text/Dictation No acute overnight events. Patient sitting comfortably in chair. Exam/Review of Systems Exam Vitals Vital Signs Date Temp Pulse Resp B/P (MAP) Pulse Ox O2 O2 Flow FiO2 Time Delivery Rate 09/30/18 97.9 72 16 110/72 100 13:29 (85) 09/29/18 Room Air 14:31 Intake and Output 09/29/18 09/29/18 09/30/18 1515:00 23:00 07:00 IntakeIntake Total 1330 ml 980 ml 350 ml BalanceBalance 1330 ml 980 ml 350 ml Exam Gen: Sitting comfortably in chair. Eyes: Pupils equal round reactive to light, extraocular muscles intact HEENT: PERRL, moist mucous membranes, Card: Regular rate and rhythm no murmurs Pulm: CTA bilaterally, no crackles. Abd: Soft, nondistended Ext: No cyanosis/clubbing/edema Neuro: Appears to still have mental slowing; there is a significant delay before answering questions. Otherwise, 4/5 strength throughout except for L foot drop. Results Results 24hrs Laboratory Tests Test 09/29/18 17:14 09/29/18 21:04 09/30/18 04:06 09/30/18 08:14 Bedside Glucose 98 146 118 130 Test 09/30/18 12:34 Bedside Glucose 94 Medications Medication Current Medications Miscellaneous Information 1 ea NOTE XX ; Start 08/21/18 at 16:30 Glucose (Glutose) 15 gm Q15M PRN PO DECREASED GLUCOSE; Start 08/21/18 at 16:30 Glucose (Glutose) 22.5 gm Q15M PRN PO DECREASED GLUCOSE; Start 08/21/18 at 16:30 Dextrose (D50w Syringe) 25 ml Q15M PRN IV DECREASED GLUCOSE; Start 08/21/18 at 16:30 Dextrose (D50w Syringe) 50 ml Q15M PRN IV DECREASED GLUCOSE; Start 08/21/18 at 16:30 Glucagon (Glucagen) 1 mg Q15M PRN IM DECREASED GLUCOSE; Start 08/21/18 at 16:30 Glucose (Glutose) 15 gm Q15M PRN BUCCAL DECREASED GLUCOSE; Start 08/21/18 at 16:30 Metoprolol Tartrate (Lopressor) 25 mg BID PO Last administered on 09/30/18at 08:15; Admin Dose 25 MG; Start 08/23/18 at 21:00 Ondansetron HCl (Zofran Inj) 4 mg Q6H PRN IV NAUSEA AND/OR VOMITING Last administered on 08/25/18at 21:47; Admin Dose 4 MG; Start 08/25/18 at 21:30 Diagnostic Test (Pha) (Accu-Chek) 1 ea 02 XX Last administered on 09/30/18at 02:00; Admin Dose 1 EA; Start 08/27/18 at 02:00 Heparin Sodium (Porcine) (Heparin (5000 Units/1ml)) 5,000 unit Q8 SC Last administered on 09/01/18at 14:27; Admin Dose 5,000 UNIT; Start 08/29/18 at 14:00; Status Hold Aspirin (Aspirin) 81 mg DAILY PO Last administered on 09/03/18at 08:37; Admin Dose 81 MG; Start 08/30/18 at 09:00; Status Hold Sucralfate (Carafate Susp) 1 gm QID PO Last administered on 09/30/18 12:35; Admin Dose 1 GM; Start 09/01/18 at 16:00 Insulin Aspart (Novolog Insulin Pen) (Adult SC Insulin - Mild Algorithm)... AC MEALS AND BEDTIME SC Last administered on 09/29/18 21:10; Admin Dose 1 UNIT; Start 09/03/18 at 07:00 Sodium Chloride 1,000 ml @ 50 mls/hr Q20H IV Last administered on 09/29/18 22:59; Admin Dose 50 MLS/HR; Start 09/13/18 at 09:00 Pantoprazole (Protonix Tab) 40 mg DAILY@06 PO Last administered on 09/30/18 05:35; Admin Dose 40 MG; Start 09/19/18 at 06:00 Tramadol HCl (Ultram) 50 mg Q6H PRN PO MODERATE PAIN LEVEL 4-6 Last administered on 09/29/18 07:36; Admin Dose 50 MG; Start 09/23/18 at 15:00 Lisinopril (Zestril) 5 mg DAILY PO Last administered on 09/30/18 08:15; Admin Dose 5 MG; Start 09/28/18 at 14:00 YUMIKO JC MD Sep 30, 2018 15:13
[2018-09-30 20:00] VITALS: BP 110/71; PULSE 105; RESP 18
[2018-10-01] MEDS: ACCU-CHEK XX SCH (01:28)
[2018-10-01 02:06] VITALS: BP 108/72; PULSE 82; RESP 18
[2018-10-01] MEDS: SOD CHLORIDE 0.45% 1,000 ML IV SCH ×3 (03:25→23:18)
[2018-10-01] MEDS: PANTOPRAZOLE (EC) 40 MG TAB PO SCH (05:36)
[2018-10-01] MEDS: INSULIN ASPART [NOVOLOG] 3 ML PEN SC SCH ×4 (07:00→21:00)
[2018-10-01 08:03] VITALS: BP 129/82; PULSE 78; RESP 18
--- NOTE | 2018-10-01 09:01 | CONS ---
Assessment/Plan Assessment/Plan Assessment/Plan (Daily) S/P respiratory failure status post extubation Low normal left ventricular ejection fraction 50% Sepsis S/P Acute kidney injury, was on hemodialysis Myocardial infarction (NSTEMI) Encephalopathy GI bleed Liver dysfunction Illicit drug use -Off aspirin secondary to GI bleed. Continue beta-kishan as tolerated. No new cardiac orders at the current time -Medical therapy for post PA - possible statin in the future if liver funtion stable -now on zestril post PA Consultation Date/Type/Reason Admit Date/Time Aug 20, 2018 at 21:39 Initial Consult Date 09/01/18 Type of Consult Cardiology Requesting Provider: YUMIKO JC MD Date/Time of Note DATE: 10/01/18 TIME: 09:01 24 HR Interval Summary Free Text/Dictation The aptient with no cahnge Exam/Review of Systems Vital Signs Vitals Vital Signs Date Temp Pulse Resp B/P (MAP) Pulse Ox O2 O2 Flow FiO2 Time Delivery Rate 10/01/18 98.2 78 18 129/82 100 Room Air 08:03 (98) Intake and Output 09/30/18 09/30/18 10/01/18 1414:59 22:59 06:59 IntakeIntake Total 1420 ml 1130 ml 550 ml OutputOutput Total 2 ml BalanceBalance 1420 ml 1130 ml 548 ml Labs Result Diagram: 10/01/18 0435 09/28/18 0427 Results 24hrs Laboratory Tests Test 09/30/18 12:34 09/30/18 17:47 09/30/18 20:46 10/01/18 04:35 Bedside Glucose 94 94 97 White Blood Count 6.7 Red Blood Count 4.34 L Hemoglobin 13.0 L Hematocrit 40.1 L Mean Corpuscular 92.4 Volume Mean Corpuscular 30.0 Hemoglobin Mean Corpuscular 32.4 Hemoglobin Concent Red Cell 13.3 Distribution Width Platelet Count 290 Mean Platelet Volume 10.8 H Immature 0.100 Granulocytes % Neutrophils % 52.3 Lymphocytes % 32.9 Monocytes % 6.7 Eosinophils % 7.0 Basophils % 1.0 Nucleated Red Blood 0.0 Cells % Immature 0.010 Granulocytes # Neutrophils # 3.5 Lymphocytes # 2.2 Monocytes # 0.5 Eosinophils # 0.5 Basophils # 0.1 Nucleated Red Blood 0.0 Cells # Test 10/01/18 08:19 Bedside Glucose 121 Medications Medications Current Medications Miscellaneous Information 1 ea NOTE XX ; Start 08/21/18 at 16:30 Glucose (Glutose) 15 gm Q15M PRN PO DECREASED GLUCOSE; Start 08/21/18 at 16:30 Glucose (Glutose) 22.5 gm Q15M PRN PO DECREASED GLUCOSE; Start 08/21/18 at 16:30 Dextrose (D50w Syringe) 25 ml Q15M PRN IV DECREASED GLUCOSE; Start 08/21/18 at 16:30 Dextrose (D50w Syringe) 50 ml Q15M PRN IV DECREASED GLUCOSE; Start 08/21/18 at 16:30 Glucagon (Glucagen) 1 mg Q15M PRN IM DECREASED GLUCOSE; Start 08/21/18 at 16:30 Glucose (Glutose) 15 gm Q15M PRN BUCCAL DECREASED GLUCOSE; Start 08/21/18 at 16:30 Metoprolol Tartrate (Lopressor) 25 mg BID PO Last administered on 09/30/18 08:15; Admin Dose 25 MG; Start 08/23/18 at 21:00 Ondansetron HCl (Zofran Inj) 4 mg Q6H PRN IV NAUSEA AND/OR VOMITING Last administered on 08/25/18at 21:47; Admin Dose 4 MG; Start 08/25/18 at 21:30 Diagnostic Test (Pha) (Accu-Chek) 1 ea 02 XX Last administered on 09/30/18at 02:00; Admin Dose 1 EA; Start 08/27/18 at 02:00 Heparin Sodium (Porcine) (Heparin (5000 Units/1ml)) 5,000 unit Q8 SC Last administered on 09/01/18at 14:27; Admin Dose 5,000 UNIT; Start 08/29/18 at 14:00; Status Hold Aspirin (Aspirin) 81 mg DAILY PO Last administered on 09/03/18at 08:37; Admin Dose 81 MG; Start 08/30/18 at 09:00; Status Hold Sucralfate (Carafate Susp) 1 gm QID PO Last administered on 09/30/18at 20:45; Admin Dose 1 GM; Start 09/01/18 at 16:00 Insulin Aspart (Novolog Insulin Pen) (Adult SC Insulin - Mild Algorithm)... AC MEALS AND BEDTIME SC Last administered on 09/29/18at 21:10; Admin Dose 1 UNIT; Start 09/03/18 at 07:00 Sodium Chloride 1,000 ml @ 50 mls/hr Q20H IV Last administered on 09/30/18 18:00; Admin Dose 50 MLS/HR; Start 09/13/18 at 09:00 Pantoprazole (Protonix Tab) 40 mg DAILY@06 PO Last administered on 10/01/18 05:36; Admin Dose 40 MG; Start 09/19/18 at 06:00 Tramadol HCl (Ultram) 50 mg Q6H PRN PO MODERATE PAIN LEVEL 4-6 Last administered on 09/29/18 07:36; Admin Dose 50 MG; Start 09/23/18 at 15:00 Lisinopril (Zestril) 5 mg DAILY PO Last administered on 09/30/18 08:15; Admin Dose 5 MG; Start 09/28/18 at 14:00 SUNIL LY MD Oct 01, 2018 09:01
[2018-10-01] MEDS: SUCRALFATE (100 MG/ML) 10ML CUP PO SCH ×4 (09:17→21:45)
[2018-10-01] MEDS: METOPROLOL 25 MG TAB PO SCH ×2 (09:18→21:00)
[2018-10-01] MEDS: LISINOPRIL 5 MG TAB PO SCH (09:18)
--- NOTE | 2018-10-01 14:19 | PN ---
Date/Time of Note Date/Time of Note DATE: 10/01/18 TIME: 14:18 Assessment/Plan VTE Prophylaxis Risk score (from Nsg)>0 risk: 1 SCD applied (from Nsg): Yes Pharmacological prophylaxis: NA/contraindicated Pharm contraindication: low risk/ambulating Lines/Catheters IV Catheter Type (from Nrsg): Peripheral IV Urinary Cath still in place: No Assessment/Plan Hospital Course 33 yo man brought in found down with subsequent JULIAN secondary to rhabdomyolysis; positive for alcohol, methamphetamine, cannabis, opioids as well. #Encephalopathy and Polyneuropathy- Despite extubation on 08/24, he remains lethargic and weak.- Head CT 08/20 negative- Repeat CT on 08/31 shows some edema of the basal ganglia, confirmed on MRI, this likely represents residual toxic metabolic effect - TSH, ammonia, AM cortisol are normal. CK has normalized-also there is associated with proximal muscle weakness but intact sensation-MRI C spine was most notable for signal changes within the paraspinal musculature of C3-C4 through C5-C6... which is likely a sequelae of rhabdomyolysis. - Monitor, follow-up recommendations from neurology/neurosurgery - Reorient as needed - Continue physical therapy and occupational therapy - Plan for ARU when patient is able to take a few steps on his own. # Renal failure- resolved now as BUN and creatinine levels are back to normal, patient has adequate urine output- Oliguric renal failure with hyperkalemia (after potassium replacement), also presented with severe metabolic acidosis- Likely due to a combination of rhabdo and drug use. -Monitor for now #Hematochezia- resolved- Nurse reported maroon colored stool on 09/01- EGD 09/02 only with mild gastritis and distal esophagitis- MD witnessed maroon colored, grainy stool on 09/03. Rectal exam negative for external hemorrhoids or palpable internal hemorrhoids. Colonoscopy showed solitary rectal ulcer syndrome, bleeding likely from the rectal ulcer. -Continue Protonix daily for regular ulcer PPx. #Bacteremia- Had fever on 08/27 - Blood culture (x1 unfortunately) from that day is growing coag negative staph, a common contaminant. Repeat blood culture negative.- D/Matias right IJ. But his femoral dialysis catheter may also be a s ource of infection -wound culture from the groin area where the dialysis catheter was grew positive Pseudomonas, Enterobacter, and VRE. Status post treatment with antibiotics for this infection. Tip of Saurabh catheter culture was positive for Rosa on September 09, 2018. -Monitor, follow-up ID recommendations -again Saurabh line was removed earlier this admission # acute respiratory failure- resolved, now on room air - extubated 08/24, was likely secondary to polysubstance overdose resulting in multiorgan dysfunction; patient had subsequent severe metabolic acidosis with inadequate respiratory compensation-now oxygen levels stable - s/p antibiotic treatment for CAP earlier this admission -Monitor, continue oxygen supplementation as needed # Elevated troponin-now appears stable- CV consulted earlier this admission. Likely demand ischemia from drug use. - Will not treat per NSTEMI protocol, monitor, follow-up cardiology recommendations # transaminitis: -resolved -May be from shock liver or drug use.- Hep B, Hep C negative. LFTs have trended down. -Monitor for now # Rhabdomyolysis -occurred earlier this admission, patient required ICU care at that time, now resolved -Monitor # Coagulopathy- Resolved. # polysubstance abuse - Again patient was found to be positive for opioids, methamphetamine, marijuana and an elevated blood alcohol level. -Earlier this admission ordered for thiamine 300 mg IM daily times 3 days, further treatment as per the clinical course # DVT and GI prophylaxis: Protonix twice daily Dispo: Patient's neuromuscular recovery appears to have plateaued. He's unlikely to significantly advance in ARU. At this time, SNF evaluation may be better. Result Diagram: 10/01/18 1155 09/28/18 0427 Results 24hrs Laboratory Tests Test 09/30/18 17:47 09/30/18 20:46 10/01/18 04:35 10/01/18 08:19 Bedside Glucose 94 97 121 White Blood Count 6.7 Red Blood Count 4.34 L Hemoglobin 13.0 L Hematocrit 40.1 L Mean Corpuscular 92.4 Volume Mean Corpuscular 30.0 Hemoglobin Mean Corpuscular 32.4 Hemoglobin Concent Red Cell 13.3 Distribution Width Platelet Count 290 Mean Platelet Volume 10.8 H Immature 0.100 Granulocytes % Neutrophils % 52.3 Lymphocytes % 32.9 Monocytes % 6.7 Eosinophils % 7.0 Basophils % 1.0 Nucleated Red Blood 0.0 Cells % Immature 0.010 Granulocytes # Neutrophils # 3.5 Lymphocytes # 2.2 Monocytes # 0.5 Eosinophils # 0.5 Basophils # 0.1 Nucleated Red Blood 0.0 Cells # Test 10/01/18 11:55 10/01/18 12:52 White Blood Count 8.2 # Red Blood Count 4.31 L Hemoglobin 13.2 L Hematocrit 39.6 L Mean Corpuscular 91.9 Volume Mean Corpuscular 30.6 Hemoglobin Mean Corpuscular 33.3 Hemoglobin Concent Red Cell 13.6 Distribution Width Platelet Count 304 Mean Platelet Volume 10.3 Immature 0.200 Granulocytes % Neutrophils % 51.9 Lymphocytes % 29.8 Monocytes % 9.1 Eosinophils % 7.9 H Basophils % 1.1 Nucleated Red Blood 0.0 Cells % Immature 0.020 Granulocytes # Neutrophils # 4.2 Lymphocytes # 2.4 Monocytes # 0.7 Eosinophils # 0.6 H Basophils # 0.1 Nucleated Red Blood 0.0 Cells # Bedside Glucose 98 Subjective 24 Hr Interval Summary Free Text/Dictation No acute overnight events. Exam/Review of Systems Exam Vitals Vital Signs Date Temp Pulse Resp B/P (MAP) Pulse Ox O2 O2 Flow FiO2 Time Delivery Rate 10/01/18 98.2 78 18 129/82 100 Room Air 08:03 (98) Intake and Output 09/30/18 09/30/18 10/01/18 1515:00 23:00 07:00 IntakeIntake Total 1420 ml 1130 ml 550 ml OutputOutput Total 2 ml BalanceBalance 1420 ml 1130 ml 548 ml Results Results 24hrs Laboratory Tests Test 09/30/18 17:47 09/30/18 20:46 10/01/18 04:35 10/01/18 08:19 Bedside Glucose 94 97 121 White Blood Count 6.7 Red Blood Count 4.34 L Hemoglobin 13.0 L Hematocrit 40.1 L Mean Corpuscular 92.4 Volume Mean Corpuscular 30.0 Hemoglobin Mean Corpuscular 32.4 Hemoglobin Concent Red Cell 13.3 Distribution Width Platelet Count 290 Mean Platelet Volume 10.8 H Immature 0.100 Granulocytes % Neutrophils % 52.3 Lymphocytes % 32.9 Monocytes % 6.7 Eosinophils % 7.0 Basophils % 1.0 Nucleated Red Blood 0.0 Cells % Immature 0.010 Granulocytes # Neutrophils # 3.5 Lymphocytes # 2.2 Monocytes # 0.5 Eosinophils # 0.5 Basophils # 0.1 Nucleated Red Blood 0.0 Cells # Test 10/01/18 11:55 10/01/18 12:52 White Blood Count 8.2 # Red Blood Count 4.31 L Hemoglobin 13.2 L Hematocrit 39.6 L Mean Corpuscular 91.9 Volume Mean Corpuscular 30.6 Hemoglobin Mean Corpuscular 33.3 Hemoglobin Concent Red Cell 13.6 Distribution Width Platelet Count 304 Mean Platelet Volume 10.3 Immature 0.200 Granulocytes % Neutrophils % 51.9 Lymphocytes % 29.8 Monocytes % 9.1 Eosinophils % 7.9 H Basophils % 1.1 Nucleated Red Blood 0.0 Cells % Immature 0.020 Granulocytes # Neutrophils # 4.2 Lymphocytes # 2.4 Monocytes # 0.7 Eosinophils # 0.6 H Basophils # 0.1 Nucleated Red Blood 0.0 Cells # Bedside Glucose 98 Medications Medication Current Medications Miscellaneous Information 1 ea NOTE XX ; Start 08/21/18 at 16:30 Glucose (Glutose) 15 gm Q15M PRN PO DECREASED GLUCOSE; Start 08/21/18 at 16:30 Glucose (Glutose) 22.5 gm Q15M PRN PO DECREASED GLUCOSE; Start 08/21/18 at 16:30 Dextrose (D50w Syringe) 25 ml Q15M PRN IV DECREASED GLUCOSE; Start 08/21/18 at 16:30 Dextrose (D50w Syringe) 50 ml Q15M PRN IV DECREASED GLUCOSE; Start 08/21/18 at 16:30 Glucagon (Glucagen) 1 mg Q15M PRN IM DECREASED GLUCOSE; Start 08/21/18 at 16:30 Glucose (Glutose) 15 gm Q15M PRN BUCCAL DECREASED GLUCOSE; Start 08/21/18 at 16:30 Metoprolol Tartrate (Lopressor) 25 mg BID PO Last administered on 10/01/18at 09:18; Admin Dose 25 MG; Start 08/23/18 at 21:00 Ondansetron HCl (Zofran Inj) 4 mg Q6H PRN IV NAUSEA AND/OR VOMITING Last administered on 08/25/18at 21:47; Admin Dose 4 MG; Start 08/25/18 at 21:30 Diagnostic Test (Pha) (Accu-Chek) 1 ea 02 XX Last administered on 09/30/18at 02:00; Admin Dose 1 EA; Start 08/27/18 at 02:00 Heparin Sodium (Porcine) (Heparin (5000 Units/1ml)) 5,000 unit Q8 SC Last administered on 09/01/18at 14:27; Admin Dose 5,000 UNIT; Start 08/29/18 at 14:00; Status Hold Aspirin (Aspirin) 81 mg DAILY PO Last administered on 09/03/18at 08:37; Admin Dose 81 MG; Start 08/30/18 at 09:00; Status Hold Sucralfate (Carafate Susp) 1 gm QID PO Last administered on 10/01/18 09:17; Admin Dose 1 GM; Start 09/01/18 at 16:00 Insulin Aspart (Novolog Insulin Pen) (Adult SC Insulin - Mild Algorithm)... AC MEALS AND BEDTIME SC Last administered on 09/29/18 21:10; Admin Dose 1 UNIT; Start 09/03/18 at 07:00 Sodium Chloride 1,000 ml @ 50 mls/hr Q20H IV Last administered on 09/30/18 18:00; Admin Dose 50 MLS/HR; Start 09/13/18 at 09:00 Pantoprazole (Protonix Tab) 40 mg DAILY@06 PO Last administered on 10/01/18at 05:36; Admin Dose 40 MG; Start 09/19/18 at 06:00 Tramadol HCl (Ultram) 50 mg Q6H PRN PO MODERATE PAIN LEVEL 4-6 Last administered on 09/29/18 07:36; Admin Dose 50 MG; Start 09/23/18 at 15:00 Lisinopril (Zestril) 5 mg DAILY PO Last administered on 10/01/18 09:18; Admin Dose 5 MG; Start 09/28/18 at 14:00 YUMIKO JC MD Oct 01, 2018 14:19
[2018-10-01 19:59] VITALS: BP 107/66; PULSE 90; RESP 18
[2018-10-02] MEDS: ACCU-CHEK XX SCH (00:54)
[2018-10-02 02:20] VITALS: BP 118/78; PULSE 73; RESP 18
[2018-10-02] MEDS: PANTOPRAZOLE (EC) 40 MG TAB PO SCH (06:35)
[2018-10-02] MEDS: INSULIN ASPART [NOVOLOG] 3 ML PEN SC SCH ×4 (07:00→20:33)
[2018-10-02 08:07] VITALS: BP 116/79; PULSE 75; RESP 18
[2018-10-02] MEDS: SUCRALFATE (100 MG/ML) 10ML CUP PO SCH ×4 (08:51→20:32)
[2018-10-02] MEDS: LISINOPRIL 5 MG TAB PO SCH (08:51)
[2018-10-02] MEDS: METOPROLOL 25 MG TAB PO SCH ×2 (08:52→20:32)
[2018-10-02] MEDS: SOD CHLORIDE 0.45% 1,000 ML IV SCH (13:52)
[2018-10-02 14:20] VITALS: BP 99/56; PULSE 63; RESP 18
--- NOTE | 2018-10-02 14:35 | PN ---
Date/Time of Note Date/Time of Note DATE: 10/02/18 TIME: 14:31 Assessment/Plan VTE Prophylaxis Risk score (from Ns)>0 risk: 3 SCD applied (from Ns): Yes Pharmacological prophylaxis: NA/contraindicated Pharm contraindication: low risk/ambulating Lines/Catheters IV Catheter Type (from Nrsg): Peripheral IV Urinary Cath still in place: No Assessment/Plan Hospital Course 33 yo man brought in found down with subsequent JULIAN secondary to rhabdomyolysis; positive for alcohol, methamphetamine, cannabis, opioids as well. #Encephalopathy and Polyneuropathy- Despite extubation on 08/24, he remains lethargic and weak.- Head CT 08/20 negative- Repeat CT on 08/31 shows some edema of the basal ganglia, confirmed on MRI, this likely represents residual toxic metabolic effect - TSH, ammonia, AM cortisol are normal. CK has normalized-also there is associated with proximal muscle weakness but intact sensation-MRI C spine was most notable for signal changes within the paraspinal musculature of C3-C4 through C5-C6... which is likely a sequelae of rhabdomyolysis. - Reorient as needed - Continue physical therapy and occupational therapy - Plan for ARU when patient is able to take a few steps on his own. # Renal failure- resolved now as BUN and creatinine levels are back to normal, patient has adequate urine output- Oliguric renal failure with hyperkalemia (after potassium replacement), also presented with severe metabolic acidosis- Likely due to a combination of rhabdo and drug use. #Hematochezia- resolved- Nurse reported maroon colored stool on 09/01- EGD 09/02 only with mild gastritis and distal esophagitis- MD witnessed maroon colored, grainy stool on 09/03. Rectal exam negative for external hemorrhoids or palpable internal hemorrhoids. Colonoscopy showed solitary rectal ulcer syndrome, bleed ing likely from the rectal ulcer. -Continue Protonix daily for regular ulcer PPx. #Bacteremia- Had fever on 08/27 - Blood culture (x1 unfortunately) from that day is growing coag negative staph, a common contaminant. Repeat blood culture negative.- D/Matias right IJ. But his femoral dialysis catheter may also be a source of infection -wound culture from the groin area where the dialysis catheter was grew positive Pseudomonas, Enterobacter, and VRE. Status post treatment with antibiotics for this infection. Tip of Saurabh catheter culture was positive for Rosa on September 09, 2018. # acute respiratory failure- resolved, now on room air - extubated 08/24, was likely secondary to polysubstance overdose resulting in multiorgan dysfunction; patient had subsequent severe metabolic acidosis with inadequate respiratory compensation-now oxygen levels stable - s/p antibiotic treatment for CAP earlier this admission # Elevated troponin-now appears stable- Likely demand ischemia from drug use. Will not treat per NSTEMI protocol. # transaminitis: -resolved -May be from shock liver or drug use.- Hep B, Hep C negative. LFTs have trended down. -Monitor for now # Rhabdomyolysis -occurred earlier this admission, patient required ICU care at that time, now resolved # Coagulopathy- Resolved. # polysubstance abuse - Again patient was found to be positive for opioids, methamphetamine, marijuana and an elevated blood alcohol level. -Earlier this admission ordered for thiamine 300 mg IM daily times 3 days, further treatment as per the clinical course # DVT and GI prophylaxis: Protonix twice daily Dispo: Patient's neuromuscular recovery appears to have plateaued. He's unlikely to significantly advance in ARU. At this time, SNF evaluation may be better. Result Diagram: 10/01/18 1758 09/28/18 0427 Subjective 24 Hr Interval Summary Free Text/Dictation Sleeping comfortably in bed. Exam/Review of Systems Exam Vitals Vital Signs Date Temp Pulse Resp B/P (MAP) Pulse Ox O2 O2 Flow FiO2 Time Delivery Rate 10/02/18 98.4 75 18 116/79 100 Room Air 08:07 (91) Intake and Output 10/01/18 10/01/18 10/02/18 1515:00 23:00 07:00 IntakeIntake Total 1320 ml 1350 ml 450 ml BalanceBalance 1320 ml 1350 ml 450 ml Exam Gen: Well developed man sleeping comfortably in bed. HEENT: PERRL, moist mucous membranes, Card: Regular rate and rhythm no murmurs Pulm: CTA bilaterally, no crackles. Abd: Soft, nondistended Ext: No cyanosis/clubbing/edema Neuro: Appears to still have mental slowing; there is a significant delay before answering questions. Otherwise, 4/5 strength throughout except for L foot drop. Medications Medication Current Medications Miscellaneous Information 1 ea NOTE XX ; Start 08/21/18 at 16:30 Glucose (Glutose) 15 gm Q15M PRN PO DECREASED GLUCOSE; Start 08/21/18 at 16:30 Glucose (Glutose) 22.5 gm Q15M PRN PO DECREASED GLUCOSE; Start 08/21/18 at 16:30 Dextrose (D50w Syringe) 25 ml Q15M PRN IV DECREASED GLUCOSE; Start 08/21/18 at 16:30 Dextrose (D50w Syringe) 50 ml Q15M PRN IV DECREASED GLUCOSE; Start 08/21/18 at 16:30 Glucagon (Glucagen) 1 mg Q15M PRN IM DECREASED GLUCOSE; Start 08/21/18 at 16:30 Glucose (Glutose) 15 gm Q15M PRN BUCCAL DECREASED GLUCOSE; Start 08/21/18 at 16:30 Metoprolol Tartrate (Lopressor) 25 mg BID PO Last administered on 10/02/18 08:52; Admin Dose 25 MG; Start 08/23/18 at 21:00 Ondansetron HCl (Zofran Inj) 4 mg Q6H PRN IV NAUSEA AND/OR VOMITING Last administered on 08/25/18at 21:47; Admin Dose 4 MG; Start 08/25/18 at 21:30 Diagnostic Test (Pha) (Accu-Chek) 1 ea 02 XX Last administered on 09/30/18 02:00; Admin Dose 1 EA; Start 08/27/18 at 02:00 Heparin Sodium (Porcine) (Heparin (5000 Units/1ml)) 5,000 unit Q8 SC Last administered on 09/01/18at 14:27; Admin Dose 5,000 UNIT; Start 08/29/18 at 14:00; Status Hold Aspirin (Aspirin) 81 mg DAILY PO Last administered on 09/03/18at 08:37; Admin Dose 81 MG; Start 08/30/18 at 09:00; Status Hold Sucralfate (Carafate Susp) 1 gm QID PO Last administered on 10/02/18at 13:34; Admin Dose 1 GM; Start 09/01/18 at 16:00 Insulin Aspart (Novolog Insulin Pen) (Adult SC Insulin - Mild Algorithm)... AC MEALS AND BEDTIME SC Last administered on 10/02/18 13:30; Admin Dose 1 UNIT; Start 09/03/18 at 07:00 Sodium Chloride 1,000 ml @ 50 mls/hr Q20H IV Last administered on 10/02/18 13:52; Admin Dose 50 MLS/HR; Start 09/13/18 at 09:00 Pantoprazole (Protonix Tab) 40 mg DAILY@06 PO Last administered on 10/02/18 06:35; Admin Dose 40 MG; Start 09/19/18 at 06:00 Tramadol HCl (Ultram) 50 mg Q6H PRN PO MODERATE PAIN LEVEL 4-6 Last administered on 09/29/18 07:36; Admin Dose 50 MG; Start 09/23/18 at 15:00 Lisinopril (Zestril) 5 mg DAILY PO Last administered on 10/02/18 08:51; Admin Dose 5 MG; Start 09/28/18 at 14:00 YUMIKO JC MD Oct 02, 2018 14:35
[2018-10-02 20:00] VITALS: BP 124/72; PULSE 77; RESP 18
[2018-10-03] MEDS: ACCU-CHEK XX SCH (01:18)
[2018-10-03 02:00] VITALS: BP 113/67; PULSE 77; RESP 18
[2018-10-03] MEDS: PANTOPRAZOLE (EC) 40 MG TAB PO SCH (06:09)
[2018-10-03 07:39] VITALS: BP 108/71; PULSE 80; RESP 16
[2018-10-03] MEDS: INSULIN ASPART [NOVOLOG] 3 ML PEN SC SCH ×4 (08:00→22:00)
--- NOTE | 2018-10-03 08:17 | CONS ---
Assessment/Plan Assessment/Plan Assessment/Plan (Daily) S/P respiratory failure status post extubation Low normal left ventricular ejection fraction 50% Sepsis S/P Acute kidney injury, was on hemodialysis Myocardial infarction (NSTEMI) Encephalopathy GI bleed Liver dysfunction Illicit drug use -Off aspirin secondary to GI bleed. Continue beta-kishan as tolerated. No new cardiac orders at the current time -Medical therapy for post SD - possible statin in the future if liver funtion stable -now on zestril post SD Consultation Date/Type/Reason Admit Date/Time Aug 20, 2018 at 21:39 Initial Consult Date 09/01/18 Type of Consult Cardiology Requesting Provider: YUMIKO JC MD Date/Time of Note DATE: 10/03/18 TIME: 08:14 24 HR Interval Summary Free Text/Dictation the patient with no cahnge Exam/Review of Systems Vital Signs Vitals Vital Signs Date Temp Pulse Resp B/P (MAP) Pulse Ox O2 O2 Flow FiO2 Time Delivery Rate 10/03/18 98.3 80 16 108/71 99 07:39 (83) 10/03/18 Room Air 02:00 Intake and Output 10/02/18 10/02/18 10/03/18 1515:00 23:00 07:00 IntakeIntake Total 1210 ml 555 ml BalanceBalance 1210 ml 555 ml Labs Result Diagram: 10/03/18 0431 10/03/18 0431 Results 24hrs Laboratory Tests Test 10/02/18 08:49 10/02/18 12:37 10/02/18 13:25 10/02/18 17:35 Bedside Glucose 100 161 147 107 Test 10/02/18 20:33 10/03/18 04:31 Bedside Glucose 143 White Blood Count 6.7 Red Blood Count 4.55 L Hemoglobin 13.7 L Hematocrit 41.9 L Mean Corpuscular 92.1 Volume Mean Corpuscular 30.1 Hemoglobin Mean Corpuscular 32.7 Hemoglobin Concent Red Cell 13.5 Distribution Width Platelet Count 298 Mean Platelet Volume 10.7 H Immature 0.300 Granulocytes % Neutrophils % 49.7 Lymphocytes % 34.5 Monocytes % 6.6 Eosinophils % 7.7 H Basophils % 1.2 Nucleated Red Blood 0.0 Cells % Immature 0.020 Granulocytes # Neutrophils # 3.3 Lymphocytes # 2.3 Monocytes # 0.4 Eosinophils # 0.5 Basophils # 0.1 Nucleated Red Blood 0.0 Cells # Sodium Level 144 Potassium Level 3.9 Chloride Level 99 Carbon Dioxide Level 28 Anion Gap 17 H Blood Urea Nitrogen 20 Creatinine 0.61 Est Glomerular > 60 Filtrat Rate mL/min Glucose Level 114 Calcium Level 10.2 Phosphorus Level 4.6 Magnesium Level 1.6 L Medications Medications Current Medications Miscellaneous Information 1 ea NOTE XX ; Start 08/21/18 at 16:30 Glucose (Glutose) 15 gm Q15M PRN PO DECREASED GLUCOSE; Start 08/21/18 at 16:30 Glucose (Glutose) 22.5 gm Q15M PRN PO DECREASED GLUCOSE; Start 08/21/18 at 16:30 Dextrose (D50w Syringe) 25 ml Q15M PRN IV DECREASED GLUCOSE; Start 08/21/18 at 16:30 Dextrose (D50w Syringe) 50 ml Q15M PRN IV DECREASED GLUCOSE; Start 08/21/18 at 16:30 Glucagon (Glucagen) 1 mg Q15M PRN IM DECREASED GLUCOSE; Start 08/21/18 at 16:3 0 Glucose (Glutose) 15 gm Q15M PRN BUCCAL DECREASED GLUCOSE; Start 08/21/18 at 16:30 Metoprolol Tartrate (Lopressor) 25 mg BID PO Last administered on 10/02/18at 20:32; Admin Dose 25 MG; Start 08/23/18 at 21:00 Ondansetron HCl (Zofran Inj) 4 mg Q6H PRN IV NAUSEA AND/OR VOMITING Last administered on 08/25/18at 21:47; Admin Dose 4 MG; Start 08/25/18 at 21:30 Diagnostic Test (Pha) (Accu-Chek) 1 ea 02 XX Last administered on 09/30/18at 02:00; Admin Dose 1 EA; Start 08/27/18 at 02:00 Heparin Sodium (Porcine) (Heparin (5000 Units/1ml)) 5,000 unit Q8 SC Last administered on 09/01/18at 14:27; Admin Dose 5,000 UNIT; Start 08/29/18 at 14:00; Status Hold Aspirin (Aspirin) 81 mg DAILY PO Last administered on 09/03/18at 08:37; Admin Dose 81 MG; Start 08/30/18 at 09:00; Status Hold Sucralfate (Carafate Susp) 1 gm QID PO Last administered on 10/02/18 20:32; Admin Dose 1 GM; Start 09/01/18 at 16:00 Insulin Aspart (Novolog Insulin Pen) (Adult SC Insulin - Mild Algorithm)... AC MEALS AND BEDTIME SC Last administered on 10/02/18 13:30; Admin Dose 1 UNIT; Start 09/03/18 at 07:00 Pantoprazole (Protonix Tab) 40 mg DAILY@06 PO Last administered on 10/03/18 06:09; Admin Dose 40 MG; Start 09/19/18 at 06:00 Tramadol HCl (Ultram) 50 mg Q6H PRN PO MODERATE PAIN LEVEL 4-6 Last administ ered on 09/29/18 07:36; Admin Dose 50 MG; Start 09/23/18 at 15:00 Lisinopril (Zestril) 5 mg DAILY PO Last administered on 10/02/18 08:51; Admin Dose 5 MG; Start 09/28/18 at 14:00 Miscellaneous Information (*Order Clarification Bulletin) MEDICATION REQUIRES CLARIFICATI... Q8H XX ; Start 10/03/18 at 07:30 SUNIL LY MD Oct 03, 2018 08:17
[2018-10-03] MEDS: LISINOPRIL 5 MG TAB PO SCH (08:21)
[2018-10-03] MEDS: SUCRALFATE (100 MG/ML) 10ML CUP PO SCH ×2 (08:21→13:03)
[2018-10-03] MEDS: METOPROLOL 25 MG TAB PO SCH ×2 (08:22→22:00)
[2018-10-03 14:06] VITALS: BP 94/58; PULSE 92; RESP 16
[2018-10-03] MEDS ORDERED: MAGNESIUM SULFATE 1 GM/D5W 100 ML IVPB ONE (15:00)
--- NOTE | 2018-10-03 15:12 | PN ---
Date/Time of Note Date/Time of Note DATE: 10/03/18 TIME: 15:04 Assessment/Plan VTE Prophylaxis Risk score (from Nsg)>0 risk: 3 SCD applied (from Nsg): No SCD contraindicated: low risk/ambulating Pharmacological prophylaxis: other Lines/Catheters IV Catheter Type (from Nrsg): Saline Lock Urinary Cath still in place: No Assessment/Plan Hospital Course S: Patient had no acute events overnight. O: VS - see below PE: Gen: Well developed man sleeping comfortably HEENT: PERRL, moist mucous membranes, Card: Regular rate and rhythm no murmurs Pulm: CTA bilaterally, no crackles. Abd: Soft, nondistended Ext: No cyanosis/clubbing/edema Neuro: Appears to still have mental slowing; there is a significant delay before answering questions. Otherwise, 4/5 strength A/P: 33 yo man brought in found down with subsequent JULIAN secondary to rhabdomyolysis; positive for alcohol, methamphetamine, cannabis, opioids as well. #Encephalopathy and Polyneuropathy- Despite extubation on 08/24, he remains lethargic and weak.- Head CT 08/20 negative- Repeat CT on 08/31 shows some edema of the basal ganglia, confirmed on MRI, this likely represents residual toxic metabolic effect - TSH, ammonia, AM cortisol are normal. CK has normalized-also there is associated with proximal muscle weakness but intact sensation-MRI C spine was most notable for signal changes within the paraspinal musculature of C3-C4 through C5-C6... which is likely a sequelae of rhabdomyolysis. - Reorient as needed - Continue physical therapy and occupational therapy - Plan for ARU when patient is able to take a few steps on his own-spoke with major case detective today, will order for reevaluation today # Renal failure- resolved now as BUN and creatinine levels are back to normal, patient has adequate urine output- Oliguric renal failure with hyperkalemia (after potassium replacement), also presented with severe metabolic acidosis- Likely due to a combination of rhabdo and drug use. #Hematochezia- resolved- Nurse reported maroon colored stool on 09/01- EGD 09/02 only with mild gastritis and distal esophagitis- MD witnessed maroon colored, grainy stool on 09/03. Rectal exam negative for external hemorrhoids or palpable internal hemorrhoids. Colonoscopy showed solitary rectal ulcer syndrome, bleeding likely from the rectal ulcer. -Continue Protonix daily for regular ulcer PPx. #Bacteremia- Had fever on 08/27 - Blood culture (x1 unfortunately) from that day is growing coag negative staph, a common contaminant. Repeat blood culture negative.- D/Matias right IJ. But his femoral dialysis catheter may also be a source of infection -wound culture from the groin area where the dialysis cath eter was grew positive Pseudomonas, Enterobacter, and VRE. Status post treatment with antibiotics for this infection. Tip of Saurabh catheter culture was positive for Rosa on September 09, 2018. # acute respiratory failure- resolved, now on room air - extubated 08/24, was likely secondary to polysubstance overdose resulting in multiorgan dysfunction; patient had subsequent severe metabolic acidosis with inadequate respiratory compensation-now oxygen levels stable - s/p antibiotic treatment for CAP earlier this admission # Elevated troponin-now appears stable- Likely demand ischemia from drug use. Will not treat per NSTEMI protocol. # transaminitis: -resolved -May be from shock liver or drug use.- Hep B, Hep C negative. LFTs have trended down. -Monitor for now # Rhabdomyolysis -occurred earlier this admission, patient required ICU care at that time, now resolved # Coagulopathy- Resolved. # polysubstance abuse - Again patient was found to be positive for opioids, methamphetamine, marijuana and an elevated blood alcohol level. -Earlier this admission ordered for thiamine 300 mg IM daily times 3 days, further treatment as per the clinical course # DVT and GI prophylaxis: Protonix twice daily Dispo: Patient's neuromuscular recovery appears to have plateaued. He's unlikely to significantly advance in ARU (although again we will have him come reevaluate him). Also strongly considering SNF as well. Result Diagram: 10/03/18 0431 10/03/18 0431 Results 24hrs Laboratory Tests Test 10/02/18 17:35 10/02/18 20:33 10/03/18 04:31 10/03/18 08:18 Bedside Glucose 107 143 122 White Blood Count 6.7 Red Blood Count 4.55 L Hemoglobin 13.7 L Hematocrit 41.9 L Mean Corpuscular 92.1 Volume Mean Corpuscular 30.1 Hemoglobin Mean Corpuscular 32.7 Hemoglobin Concent Red Cell 13.5 Distribution Width Platelet Count 298 Mean Platelet Volume 10.7 H Immature 0.300 Granulocytes % Neutrophils % 49.7 Lymphocytes % 34.5 Monocytes % 6.6 Eosinophils % 7.7 H Basophils % 1.2 Nucleated Red Blood 0.0 Cells % Immature 0.020 Granulocytes # Neutrophils # 3.3 Lymphocytes # 2.3 Monocytes # 0.4 Eosinophils # 0.5 Basophils # 0.1 Nucleated Red Blood 0.0 Cells # Sodium Level 144 Potassium Level 3.9 Chloride Level 99 Carbon Dioxide Level 28 Anion Gap 17 H Blood Urea Nitrogen 20 Creatinine 0.61 Est Glomerular > 60 Filtrat Rate mL/min Glucose Level 114 Calcium Level 10.2 Phosphorus Level 4.6 Magnesium Level 1.6 L Test 10/03/18 13:02 Bedside Glucose 154 Exam/Review of Systems Exam Vitals Vital Signs Date Temp Pulse Resp B/P (MAP) Pulse Ox O2 O2 Flow FiO2 Time Delivery Rate 10/03/18 98.3 92 16 94/58 (70) 98 14:06 10/03/18 Room Air 02:00 Intake and Output 10/02/18 10/02/18 10/03/18 1515:00 23:00 07:00 IntakeIntake Total 1210 ml 555 ml BalanceBalance 1210 ml 555 ml Results Results 24hrs Laboratory Tests Test 10/02/18 17:35 10/02/18 20:33 10/03/18 04:31 10/03/18 08:18 Bedside Glucose 107 143 122 White Blood Count 6.7 Red Blood Count 4.55 L Hemoglobin 13.7 L Hematocrit 41.9 L Mean Corpuscular 92.1 Volume Mean Corpuscular 30.1 Hemoglobin Mean Corpuscular 32.7 Hemoglobin Concent Red Cell 13.5 Distribution Width Platelet Count 298 Mean Platelet Volume 10.7 H Immature 0.300 Granulocytes % Neutrophils % 49.7 Lymphocytes % 34.5 Monocytes % 6.6 Eosinophils % 7.7 H Basophils % 1.2 Nucleated Red Blood 0.0 Cells % Immature 0.020 Granulocytes # Neutrophils # 3.3 Lymphocytes # 2.3 Monocytes # 0.4 Eosinophils # 0.5 Basophils # 0.1 Nucleated Red Blood 0.0 Cells # Sodium Level 144 Potassium Level 3.9 Chloride Level 99 Carbon Dioxide Level 28 Anion Gap 17 H Blood Urea Nitrogen 20 Creatinine 0.61 Est Glomerular > 60 Filtrat Rate mL/min Glucose Level 114 Calcium Level 10.2 Phosphorus Level 4.6 Magnesium Level 1.6 L Test 10/03/18 13:02 Bedside Glucose 154 Medications Medication Current Medications Miscellaneous Information 1 ea NOTE XX ; Start 08/21/18 at 16:30 Glucose (Glutose) 15 gm Q15M PRN PO DECREASED GLUCOSE; Start 08/21/18 at 16:30 Glucose (Glutose) 22.5 gm Q15M PRN PO DECREASED GLUCOSE; Start 08/21/18 at 16:30 Dextrose (D50w Syringe) 25 ml Q15M PRN IV DECREASED GLUCOSE; Start 08/21/18 at 16:30 Dextrose (D50w Syringe) 50 ml Q15M PRN IV DECREASED GLUCOSE; Start 08/21/18 at 16:30 Glucagon (Glucagen) 1 mg Q15M PRN IM DECREASED GLUCOSE; Start 08/21/18 at 16:30 Glucose (Glutose) 15 gm Q15M PRN BUCCAL DECREASED GLUCOSE; Start 08/21/18 at 16:30 Metoprolol Tartrate (Lopressor) 25 mg BID PO Last administered on 10/03/18at 0 8:22; Admin Dose 25 MG; Start 08/23/18 at 21:00 Ondansetron HCl (Zofran Inj) 4 mg Q6H PRN IV NAUSEA AND/OR VOMITING Last administered on 08/25/18at 21:47; Admin Dose 4 MG; Start 08/25/18 at 21:30 Diagnostic Test (Pha) (Accu-Chek) 1 ea 02 XX Last administered on 09/30/18at 02:00; Admin Dose 1 EA; Start 08/27/18 at 02:00 Heparin Sodium (Porcine) (Heparin (5000 Units/1ml)) 5,000 unit Q8 SC Last administered on 09/01/18at 14:27; Admin Dose 5,000 UNIT; Start 08/29/18 at 14:00; Status Hold Aspirin (Aspirin) 81 mg DAILY PO Last administered on 09/03/18at 08:37; Admin Dose 81 MG; Start 08/30/18 at 09:00; Status Hold Sucralfate (Carafate Susp) 1 gm QID PO Last administered on 10/03/18at 13:03; Admin Dose 1 GM; Start 09/01/18 at 16:00 Insulin Aspart (Novolog Insulin Pen) (Adult SC Insulin - Mild Algorithm)... AC MEALS AND BEDTIME SC Last administered on 1/28/19at 13:05; Admin Dose 1 UNIT; Start 09/03/18 at 07:00 Pantoprazole (Protonix Tab) 40 mg DAILY@06 PO Last administered on 10/03/18at 06:09; Admin Dose 40 MG; Start 09/19/18 at 06:00 Tramadol HCl (Ultram) 50 mg Q6H PRN PO MODERATE PAIN LEVEL 4-6 Last administered on 09/29/18at 07:36; Admin Dose 50 MG; Start 09/23/18 at 15:00 Lisinopril (Zestril) 5 mg DAILY PO Last administered on 10/03/18at 08:21; Admin Dose 5 MG; Start 09/28/18 at 14:00 Miscellaneous Information (*Order Clarification Bulletin) MEDICATION REQUIRES CLARIFICATI... Q8H XX ; Start 10/03/18 at 07:30 Magnesium Sulfate/ Dextrose 100 ml @ 100 mls/hr ONCE ONCE IVPB ; Start 10/03/18 at 15:00; Stop 10/03/18 at 15:59; Status CINTIA DURÁN Oct 03, 2018 15:12
[2018-10-03 19:55] VITALS: BP 97/56; PULSE 112; RESP 18
[2018-10-04 01:02] VITALS: BP 97/64; PULSE 95; RESP 18
[2018-10-04] MEDS: ACCU-CHEK XX SCH (01:52)
[2018-10-04] MEDS: PANTOPRAZOLE (EC) 40 MG TAB PO SCH (05:19)
[2018-10-04] MEDS: INSULIN ASPART [NOVOLOG] 3 ML PEN SC SCH ×4 (07:00→20:25)
[2018-10-04 07:34] VITALS: BP 115/71; PULSE 97; RESP 16
[2018-10-04] MEDS: LISINOPRIL 5 MG TAB PO SCH (08:21)
[2018-10-04] MEDS: METOPROLOL 25 MG TAB PO SCH ×2 (08:22→20:26)
--- NOTE | 2018-10-04 12:01 | PN ---
Date/Time of Note Date/Time of Note DATE: 10/04/18 TIME: 11:58 Assessment/Plan VTE Prophylaxis Risk score (from Nsg)>0 risk: 2 SCD applied (from Ns): No SCD contraindicated: low risk/ambulating Pharmacological prophylaxis: other Lines/Catheters IV Catheter Type (from Nrsg): Saline Lock Urinary Cath still in place: No Assessment/Plan Hospital Course S: No acute events overnight. O: VS - see below PE: Gen: Well developed man sleeping comfortably HEENT: PERRL, moist mucous membranes, Card: Regular rate and rhythm no murmurs Pulm: CTA bilaterally, no crackles. Abd: Soft, nondistended Ext: No cyanosis/clubbing/edema Neuro: Appears to still have mental slowing; still some significant delay before answering questions. Otherwise, 4/5 strength A/P: 33 yo man brought in found down with subsequent JULIAN secondary to rhabdomyolysis; positive for alcohol, methamphetamine, cannabis, opioids as well. #Encephalopathy and Polyneuropathy- Despite extubation on 08/24, he remains lethargic and weak.- Head CT 08/20 negative- Repeat CT on 08/31 shows some edema of the basal ganglia, confirmed on MRI, this likely represents residual toxic metabolic effect - TSH, ammonia, AM cortisol are normal. CK has normalized-also there is associated with proximal muscle weakness but intact sensation-MRI C spine was most notable for signal changes within the paraspinal musculature of C3-C4 through C5-C6... which is likely a sequelae of rhabdomyolysis. - Reorient as needed - Continue physical therapy and occupational therapy - Plan for ARU when patient is able to take a few steps on his own-they will reevaluate patient today # Renal failure- resolved now as BUN and creatinine levels are back to normal, patient has adequate urine output- Oliguric renal failure with hyperkalemia (after potassium replacement), also presented with severe metabolic acidosis- Likely due to a combination of rhabdo and drug use. #Hematochezia- resolved- Nurse reported maroon colored stool on 09/01- EGD 09/02 only with mild gastritis and distal esophagitis- MD witnessed maroon colored, grainy stool on 09/03. Rectal exam negative for external hemorrhoids or palpable internal hemorrhoids. Colonoscopy showed solitary rectal ulcer syndrome, bleeding likely from the rectal ulcer. -Continue Protonix daily for regular ulcer PPx. #Bacteremia- Had fever on 08/27 - Blood culture (x1 unfortunately) from that day is growing coag negative staph, a common contaminant. Repeat blood culture negative.- D/Matias right IJ. But his femoral dialysis catheter may also be a source of infection -wound culture from the groin area where the dialysis catheter was grew positive Pseudomonas, Enterobacter, and VRE. Status post treatment with antibiotics for this infection. Tip of Saurabh catheter culture was positive for Rosa on September 09, 2018. # acute respiratory failure- resolved, now on room air - extubated 08/24, was likely secondary to polysubstance overdose resulting in multiorgan dysfunction; patient had subsequent severe metabolic acidosis with inadequate respiratory compensation-now oxygen levels stable - s/p antibiotic treatment for CAP earlier this admission # Elevated troponin-now appears stable- Likely demand ischemia from drug use. Will not treat per NSTEMI protocol. # transaminitis: -resolved -May be from shock liver or drug use.- Hep B, Hep C negative. LFTs have trended down. -Monitor for now # Rhabdomyolysis -occurred earlier this admission, patient required ICU care at that time, now resolved # Coagulopathy- Resolved. # polysubstance abuse - Again patient was found to be positive for opioids, methamphetamine, marijuana and an elevated blood alcohol level. -Earlier this admission ordered for thiamine 300 mg IM daily times 3 days, further treatment as per the clinical course # DVT and GI prophylaxis: Protonix twice daily Dispo: Patient awaiting reevaluation from ARU. Also strongly considering SNF as well. Result Diagram: 10/03/18 0431 10/03/18 0431 Results 24hrs Laboratory Tests Test 10/03/18 13:02 10/03/18 17:53 10/03/18 22:24 10/04/18 08:20 Bedside Glucose 154 116 110 122 Exam/Review of Systems Exam Vitals Vital Signs Date Temp Pulse Resp B/P (MAP) Pulse Ox O2 O2 Flow FiO2 Time Delivery Rate 10/04/18 98.4 97 16 115/71 99 07:34 (86) 10/03/18 Room Air 02:00 Intake and Output 10/03/18 10/03/18 10/04/18 1515:00 23:00 07:00 IntakeIntake Total 1560 ml 580 ml BalanceBalance 1560 ml 580 ml Results Results 24hrs Laboratory Tests Test 10/03/18 13:02 10/03/18 17:53 10/03/18 22:24 10/04/18 08:20 Bedside Glucose 154 116 110 122 Medications Medication Current Medications Miscellaneous Information 1 ea NOTE XX ; Start 08/21/18 at 16:30 Glucose (Glutose) 15 gm Q15M PRN PO DECREASED GLUCOSE; Start 08/21/18 at 16:30 Glucose (Glutose) 22.5 gm Q15M PRN PO DECREASED GLUCOSE; Start 08/21/18 at 16:30 Dextrose (D50w Syringe) 25 ml Q15M PRN IV DECREASED GLUCOSE; Start 08/21/18 at 16:30 Dextrose (D50w Syringe) 50 ml Q15M PRN IV DECREASED GLUCOSE; Start 08/21/18 at 16:30 Glucagon (Glucagen) 1 mg Q15M PRN IM DECREASED GLUCOSE; Start 08/21/18 at 16:30 Glucose (Glutose) 15 gm Q15M PRN BUCCAL DECREASED GLUCOSE; Start 08/21/18 at 16:30 Metoprolol Tartrate (Lopressor) 25 mg BID PO Last administered on 10/04/18at 08:22; Admin Dose 25 MG; Start 08/23/18 at 21:00 Ondansetron HCl (Zofran Inj) 4 mg Q6H PRN IV NAUSEA AND/OR VOMITING Last administered on 08/25/18at 21:47; Admin Dose 4 MG; Start 08/25/18 at 21:30 Diagnostic Test (Pha) (Accu-Chek) 1 ea 02 XX Last administered on 09/30/18at 02:00; Admin Dose 1 EA; Start 08/27/18 at 02:00 Heparin Sodium (Porcine) (Heparin (5000 Units/1ml)) 5,000 unit Q8 SC Last ad ministered on 09/01/18at 14:27; Admin Dose 5,000 UNIT; Start 08/29/18 at 14:00; Status Hold Aspirin (Aspirin) 81 mg DAILY PO Last administered on 09/03/18at 08:37; Admin Dose 81 MG; Start 08/30/18 at 09:00; Status Hold Insulin Aspart (Novolog Insulin Pen) (Adult SC Insulin - Mild Algorithm)... AC MEALS AND BEDTIME SC Last administered on 10/03/18at 13:05; Admin Dose 1 UNIT; Start 09/03/18 at 07:00 Pantoprazole (Protonix Tab) 40 mg DAILY@06 PO Last administered on 10/04/18at 05:19; Admin Dose 40 MG; Start 09/19/18 at 06:00 Tramadol HCl (Ultram) 50 mg Q6H PRN PO MODERATE PAIN LEVEL 4-6 Last administered on 09/29/18at 07:36; Admin Dose 50 MG; Start 09/23/18 at 15:00 Lisinopril (Zestril) 5 mg DAILY PO Last administered on 10/04/18at 08:21; Admin Dose 5 MG; Start 09/28/18 at 14:00 Miscellaneous Information (*Order Clarification Bulletin) MEDICATION REQUIRES CLARIFICATI... Q8H XX ; Start 10/03/18 at 07:30 CINTIA ESPINOSA Oct 04, 2018 12:01
[2018-10-04 13:52] VITALS: BP 92/63; PULSE 95; RESP 16
[2018-10-04 19:36] VITALS: BP 91/61; PULSE 108; RESP 16
[2018-10-05] MEDS: ACCU-CHEK XX SCH (01:43)
[2018-10-05 01:54] VITALS: BP 100/66; PULSE 100; RESP 16
[2018-10-05] MEDS: PANTOPRAZOLE (EC) 40 MG TAB PO SCH (05:41)
[2018-10-05] MEDS: INSULIN ASPART [NOVOLOG] 3 ML PEN SC SCH ×4 (07:00→20:47)
[2018-10-05 07:41] VITALS: BP 113/77; PULSE 84; RESP 16
[2018-10-05] MEDS: METOPROLOL 25 MG TAB PO SCH ×2 (08:24→20:42)
[2018-10-05] MEDS: LISINOPRIL 5 MG TAB PO SCH (08:24)
--- NOTE | 2018-10-05 12:02 | PN ---
Date/Time of Note Date/Time of Note DATE: 10/05/18 TIME: 12:00 Assessment/Plan VTE Prophylaxis Risk score (from Nsg)>0 risk: 1 SCD applied (from Nsg): No SCD contraindicated: low risk/ambulating Pharmacological prophylaxis: other Lines/Catheters IV Catheter Type (from Nrsg): Saline Lock Urinary Cath still in place: No Assessment/Plan Hospital Course S: No acute events overnight, apparently not able to be accepted to ER you because there is no bed available presently? O: VS - see below PE: Gen: Well developed man sleeping comfortably HEENT: PERRL, moist mucous membranes, Card: Regular rate and rhythm no murmurs Pulm: CTA bilaterally, no crackles. Abd: Soft, nondistended Ext: No cyanosis/clubbing/edema Neuro: Appears to still have mental slowing; still some significant delay before answering questions. Otherwise, 4/5 strength A/P: 33 yo man brought in found down with subsequent JULIAN secondary to rhabdomyolysis; positive for alcohol, methamphetamine, cannabis, opioids as well. #Encephalopathy and Polyneuropathy- Despite extubation on 08/24, he remains lethargic and weak.- Head CT 08/20 negative- Repeat CT on 08/31 shows some edema of the basal ganglia, confirmed on MRI, this likely represents residual toxic metabolic effect - TSH, ammonia, AM cortisol are normal. CK has normalized-also there is associated with proximal muscle weakness but intact sensation-MRI C spine was most notable for signal changes within the paraspinal musculature of C3-C4 through C5-C6... which is likely a sequelae of rhabdomyolysis. - Reorient as needed - Continue physical therapy and occupational therapy - Plan for ARU when patient is able to take a few steps on his own-but no bed available apparently now # Renal failure- resolved now as BUN and creatinine levels are back to normal, patient has adequate urine output- Oliguric renal failure with hyperkalemia (after potassium replacement), also presented with severe metabolic acidosis- Likely due to a combination of rhabdo and drug use. #Hematochezia- resolved- Nurse reported maroon colored stool on 09/01- EGD 09/02 only with mild gastritis and distal esophagitis- MD witnessed maroon colored, grainy stool on 09/03. Rectal exam negative for external hemorrhoids or palpable internal hemorrhoids. Colonoscopy showed solitary rectal ulcer syndrome, bleeding likely from the rectal ulcer. -Continue Protonix daily for regular ulcer PPx. #Bacteremia- Had fever on 08/27 - Blood culture (x1 unfortunately) from that day is growing coag negative staph, a common contaminant. Repeat blood culture nega tive.- D/Matias right IJ. But his femoral dialysis catheter may also be a source of infection -wound culture from the groin area where the dialysis catheter was grew positive Pseudomonas, Enterobacter, and VRE. Status post treatment with antibiotics for this infection. Tip of Saurabh catheter culture was positive for Rosa on September 09, 2018. # acute respiratory failure- resolved, now on room air - extubated 08/24, was likely secondary to polysubstance overdose resulting in multiorgan dysfunction; patient had subsequent severe metabolic acidosis with inadequate respiratory compensation-now oxygen levels stable - s/p antibiotic treatment for CAP earlier this admission # Elevated troponin-now appears stable- Likely demand ischemia from drug use. Will not treat per NSTEMI protocol. # transaminitis: -resolved -May be from shock liver or drug use.- Hep B, Hep C negative. LFTs have trended down. -Monitor for now # Rhabdomyolysis -occurred earlier this admission, patient required ICU care at that time, now resolved # Coagulopathy- Resolved. # polysubstance abuse - Again patient was found to be positive for opioids, methamphetamine, marijuana and an elevated blood alcohol level. -Earlier this admission ordered for thiamine 300 mg IM daily times 3 days, further treatment as per the clinical course # DVT and GI prophylaxis: Protonix twice daily Dispo: Patient awaiting possible placement to ARU when bed available. Also strongly considering SNF as well. Result Diagram: 10/03/18 0431 10/03/18 0431 Results 24hrs Laboratory Tests Test 10/04/18 12:36 10/04/18 17:35 10/04/18 20:24 10/05/18 08:22 Bedside Glucose 155 114 162 117 Exam/Review of Systems Exam Vitals Vital Signs Date Temp Pulse Resp B/P (MAP) Pulse Ox O2 O2 Flow FiO2 Time Delivery Rate 10/05/18 98.5 84 16 113/77 97 07:41 (89) 10/03/18 Room Air 02:00 Intake and Output 10/04/18 10/04/18 10/05/18 1515:00 23:00 07:00 IntakeIntake Total 1200 ml 480 ml 700 ml BalanceBalance 1200 ml 480 ml 700 ml Results Results 24hrs Laboratory Tests Test 10/04/18 12:36 10/04/18 17:35 10/04/18 20:24 10/05/18 08:22 Bedside Glucose 155 114 162 117 Medications Medication Current Medications Miscellaneous Information 1 ea NOTE XX ; Start 08/21/18 at 16:30 Glucose (Glutose) 15 gm Q15M PRN PO DECREASED GLUCOSE; Start 08/21/18 at 16:30 Glucose (Glutose) 22.5 gm Q15M PRN PO DECREASED GLUCOSE; Start 08/21/18 at 16 :30 Dextrose (D50w Syringe) 25 ml Q15M PRN IV DECREASED GLUCOSE; Start 08/21/18 at 16:30 Dextrose (D50w Syringe) 50 ml Q15M PRN IV DECREASED GLUCOSE; Start 08/21/18 at 16:30 Glucagon (Glucagen) 1 mg Q15M PRN IM DECREASED GLUCOSE; Start 08/21/18 at 16:30 Glucose (Glutose) 15 gm Q15M PRN BUCCAL DECREASED GLUCOSE; Start 08/21/18 at 16:30 Metoprolol Tartrate (Lopressor) 25 mg BID PO Last administered on 10/05/18at 08:24; Admin Dose 25 MG; Start 08/23/18 at 21:00 Ondansetron HCl (Zofran Inj) 4 mg Q6H PRN IV NAUSEA AND/OR VOMITING Last administered on 08/25/18at 21:47; Admin Dose 4 MG; Start 08/25/18 at 21:30 Diagnostic Test (Pha) (Accu-Chek) 1 ea 02 XX Last administered on 09/30/18at 0 2:00; Admin Dose 1 EA; Start 08/27/18 at 02:00 Heparin Sodium (Porcine) (Heparin (5000 Units/1ml)) 5,000 unit Q8 SC Last administered on 09/01/18at 14:27; Admin Dose 5,000 UNIT; Start 08/29/18 at 14:00; Status Hold Aspirin (Aspirin) 81 mg DAILY PO Last administered on 09/03/18at 08:37; Admin D ose 81 MG; Start 08/30/18 at 09:00; Status Hold Insulin Aspart (Novolog Insulin Pen) (Adult SC Insulin - Mild Algorithm)... AC MEALS AND BEDTIME SC Last administered on 10/04/18at 12:39; Admin Dose 1 UNIT; Start 09/03/18 at 07:00 Pantoprazole (Protonix Tab) 40 mg DAILY@06 PO Last administered on 10/05/18at 05:41; Admin Dose 40 MG; Start 09/19/18 at 06:00 Tramadol HCl (Ultram) 50 mg Q6H PRN PO MODERATE PAIN LEVEL 4-6 Last administered on 09/29/18at 07:36; Admin Dose 50 MG; Start 09/23/18 at 15:00 Lisinopril (Zestril) 5 mg DAILY PO Last administered on 10/05/18 08:24; Admin Dose 5 MG; Start 09/28/18 at 14:00 Miscellaneous Information (*Order Clarification Bulletin) MEDICATION REQUIRES CLARIFICATI... Q8H XX ; Start 10/03/18 at 07:30 CINTIA ESPINOSA Oct 05, 2018 12:02
[2018-10-05 14:34] VITALS: BP 100/69; PULSE 104; RESP 16
[2018-10-05 19:58] VITALS: BP 95/57; PULSE 101; RESP 18
[2018-10-06] MEDS: ACCU-CHEK XX SCH (02:00)
[2018-10-06 02:02] VITALS: BP 100/60; PULSE 95; RESP 18
[2018-10-06] MEDS: PANTOPRAZOLE (EC) 40 MG TAB PO SCH (05:57)
[2018-10-06 07:58] VITALS: BP 101/62; PULSE 91; RESP 18
[2018-10-06] MEDS: METOPROLOL 25 MG TAB PO SCH ×2 (08:11→20:22)
[2018-10-06] MEDS: LISINOPRIL 5 MG TAB PO SCH (08:12)
[2018-10-06] MEDS: INSULIN ASPART [NOVOLOG] 3 ML PEN SC SCH ×4 (08:12→20:21)
--- NOTE | 2018-10-06 12:26 | PN ---
Date/Time of Note Date/Time of Note DATE: 10/06/18 TIME: 12:25 Assessment/Plan VTE Prophylaxis Risk score (from Ns)>0 risk: 1 SCD applied (from Ns): No SCD contraindicated: other Pharmacological prophylaxis: other Pharm contraindication: low risk/ambulating Lines/Catheters [facility] Saline Lock Urinary Cath still in place: No Assessment/Plan Hospital Course S: No acute events overnight,. O: VS - see below PE: Gen: Well developed man sleeping comfortably HEENT: PERRL, moist mucous membranes, Card: Regular rate and rhythm no murmurs Pulm: CTA bilaterally, no crackles. Abd: Soft, nondistended Ext: No cyanosis/clubbing/edema Neuro: Appears to still have mental slowing; still some significant delay before answering questions. Otherwise, 4/5 strength A/P: 33 yo man brought in found down with subsequent JULIAN secondary to rhabdomyolysis; positive for alcohol, methamphetamine, cannabis, opioids as well. #Encephalopathy and Polyneuropathy- Despite extubation on 08/24, he remains lethargic and weak.- Head CT 08/20 negative- Repeat CT on 08/31 shows some edema of the basal ganglia, confirmed on MRI, this likely represents residual toxic metabolic effect - TSH, ammonia, AM cortisol are normal. CK has normalized-also there is associated with proximal muscle weakness but intact sensation-MRI C spine was most notable for signal changes within the paraspinal musculature of C3-C4 through C5-C6... which is likely a sequelae of rhabdomyolysis. - Reorient as needed - Continue physical therapy and occupational therapy - Plan for ARU vs SNF when patient is able to take a few steps on his own-but "no bed available apparently now " in ARU # Renal failure- resolved now as BUN and creatinine levels are back to normal, patient has adequate urine output- Oliguric renal failure with hyperkalemia (after potassium replacement), also presented with severe metabolic acidosis- Likely due to a combination of rhabdo and drug use. #Hematochezia- resolved- Nurse reported maroon colored stool on 09/01- EGD 09/02 only with mild gastritis and distal esophagitis- MD witnessed maroon colored, grainy stool on 09/03. Rectal exam negative for external hemorrhoids or palpable internal hemorrhoids. Colonoscopy showed solitary rectal ulcer syndrome, bleeding likely from the rectal ulcer. -Continue Protonix daily for regular ulcer PPx. #Bacteremia- Had fever on 08/27 - Blood culture (x1 unfortunately) from that day is growing coag negative staph, a common contaminant. Repeat blood culture negative.- D/Matias right IJ. But his femoral dialysis catheter may also be a source of infection -wound culture from the groin area where the dialysis catheter was grew positive Pseudomonas, Enterobacter, and VRE. Status post treatment with antibiotics for this infection. Tip of Saurabh catheter culture was positive for Rosa on September 09, 2018. # acute respiratory failure- resolved, now on room air - extubated 08/24, was likely secondary to polysubstance overdose resulting in multiorgan dysfunction; patient had subsequent severe metabolic acidosis with inadequate respiratory compensation-now oxygen levels stable - s/p antibiotic treatment for CAP earlier this admission # Elevated troponin-now appears stable- Likely demand ischemia from drug use. Will not treat per NSTEMI protocol. # transaminitis: -resolved -May be from shock liver or drug use.- Hep B, Hep C negative. LFTs have trended down. -Monitor for now # Rhabdomyolysis -occurred earlier this admission, patient required ICU care at that time, now resolved # Coagulopathy- Resolved. # polysubstance abuse - Again patient was found to be positive for opioids, methamphetamine, marijuana and an elevated blood alcohol level. -Earlier this admission ordered for thiamine 300 mg IM daily times 3 days, further treatment as per the clinical course # DVT and GI prophylaxis: Protonix twice daily Dispo: Patient awaiting possible placement to ARU "when bed available". Also strongly considering SNF as well. Result Diagram: 10/06/18 0523 10/06/1823 Results 24hrs Laboratory Tests Test 10/05/18 13:36 10/05/18 17:25 10/05/18 20:40 10/06/18 02:43 Bedside Glucose 123 120 148 124 Test 10/06/18 05:23 10/06/18 08:10 White Blood Count 8.0 Red Blood Count 4.73 Hemoglobin 14.2 Hematocrit 43.2 Mean Corpuscular 91.3 Volume Mean Corpuscular 30.0 Hemoglobin Mean Corpuscular 32.9 Hemoglobin Concent Red Cell 13.2 Distribution Width Platelet Count 331 Mean Platelet Volume 10.8 H Immature 0.400 Granulocytes % Neutrophils % 60.5 Lymphocytes % 28.6 Monocytes % 5.4 Eosinophils % 4.4 Basophils % 0.7 Nucleated Red Blood 0.0 Cells % Immature 0.030 Granulocytes # Neutrophils # 4.9 Lymphocytes # 2.3 Monocytes # 0.4 Eosinophils # 0.4 Basophils # 0.1 Nucleated Red Blood 0.0 Cells # Sodium Level 142 Potassium Level 3.9 Chloride Level 101 Carbon Dioxide Level 24 Anion Gap 17 H Blood Urea Nitrogen 20 Creatinine 0.61 Est Glomerular > 60 Filtrat Rate mL/min Glucose Level 125 Calcium Level 10.5 H Bedside Glucose 125 Exam/Review of Systems Exam Vitals Vital Signs Date Temp Pulse Resp B/P (MAP) Pulse Ox O2 O2 Flow FiO2 Time Delivery Rate 10/06/18 98.6 91 18 101/62 99 07:58 (75) 10/03/18 Room Air 02:00 Intake and Output 10/05/18 10/05/18 10/06/18 1515:00 23:00 07:00 IntakeIntake Total 1200 ml 480 ml BalanceBalance 1200 ml 480 ml Results Results 24hrs Laboratory Tests Test 10/05/18 13:36 10/05/18 17:25 10/05/18 20:40 10/06/18 02:43 Bedside Glucose 123 120 148 124 Test 10/06/18 05:23 10/06/18 08:10 White Blood Count 8.0 Red Blood Count 4.73 Hemoglobin 14.2 Hematocrit 43.2 Mean Corpuscular 91.3 Volume Mean Corpuscular 30.0 Hemoglobin Mean Corpuscular 32.9 Hemoglobin Concent Red Cell 13.2 Distribution Width Platelet Count 331 Mean Platelet Volume 10.8 H Immature 0.400 Granulocytes % Neutrophils % 60.5 Lymphocytes % 28.6 Monocytes % 5.4 Eosinophils % 4.4 Basophils % 0.7 Nucleated Red Blood 0.0 Cells % Immature 0.030 Granulocytes # Neutrophils # 4.9 Lymphocytes # 2.3 Monocytes # 0.4 Eosinophils # 0.4 Basophils # 0.1 Nucleated Red Blood 0.0 Cells # Sodium Level 142 Potassium Level 3.9 Chloride Level 101 Carbon Dioxide Level 24 Anion Gap 17 H Blood Urea Nitrogen 20 Creatinine 0.61 Est Glomerular > 60 Filtrat Rate mL/min Glucose Level 125 Calcium Level 10.5 H Bedside Glucose 125 Medications Medication Current Medications Miscellaneous Information 1 ea NOTE XX ; Start 08/21/18 at 16:30 Glucose (Glutose) 15 gm Q15M PRN PO DECREASED GLUCOSE; Start 08/21/18 at 16:30 Glucose (Glutose) 22.5 gm Q15M PRN PO DECREASED GLUCOSE; Start 08/21/18 at 16:30 Dextrose (D50w Syringe) 25 ml Q15M PRN IV DECREASED GLUCOSE; Start 08/21/18 at 16:30 Dextrose (D50w Syringe) 50 ml Q15M PRN IV DECREASED GLUCOSE; Start 08/21/18 at 16:30 Glucagon (Glucagen) 1 mg Q15M PRN IM DECREASED GLUCOSE; Start 08/21/18 at 16:30 Glucose (Glutose) 15 gm Q15M PRN BUCCAL DECREASED GLUCOSE; Start 08/21/18 at 16:30 Metoprolol Tartrate (Lopressor) 25 mg BID PO Last administered on 10/05/18 08:24; Admin Dose 25 MG; Start 08/23/18 at 21:00 Ondansetron HCl (Zofran Inj) 4 mg Q6H PRN IV NAUSEA AND/OR VOMITING Last administered on 08/25/18at 21:47; Admin Dose 4 MG; Start 08/25/18 at 21:30 Diagnostic Test (Pha) (Accu-Chek) 1 ea 02 XX Last administered on 09/30/18at 02:00; Admin Dose 1 EA; Start 08/27/18 at 02:00 Heparin Sodium (Porcine) (Heparin (5000 Units/1ml)) 5,000 unit Q8 SC Last administered on 09/01/18at 14:27; Admin Dose 5,000 UNIT; Start 08/29/18 at 14:00; Status Hold Aspirin (Aspirin) 81 mg DAILY PO Last administered on 09/03/18at 08:37; Admin Dose 81 MG; Start 08/30/18 at 09:00; Status Hold Insulin Aspart (Novolog Insulin Pen) (Adult SC Insulin - Mild Algorithm)... AC MEALS AND BEDTIME SC Last administered on 10/05/18at 20:47; Admin Dose 1 UNIT; Start 09/03/18 at 07:00 Pantoprazole (Protonix Tab) 40 mg DAILY@06 PO Last administered on 10/06/18at 05:57; Admin Dose 40 MG; Start 09/19/18 at 06:00 Tramadol HCl (Ultram) 50 mg Q6H PRN PO MODERATE PAIN LEVEL 4-6 Last administered on 09/29/18at 07:36; Admin Dose 50 MG; Start 09/23/18 at 15:00 Lisinopril (Zestril) 5 mg DAILY PO Last administered on 10/05/18at 08:24; Admin Dose 5 MG; Start 09/28/18 at 14:00 CINTIA ESPINOSA Oct 06, 2018 12:26
[2018-10-06 14:07] VITALS: BP 98/63; PULSE 78; RESP 16
[2018-10-06 20:25] VITALS: BP 101/61; PULSE 103; RESP 18
[2018-10-07] MEDS: ACCU-CHEK XX SCH (01:34)
[2018-10-07 02:33] VITALS: BP 100/72; PULSE 98; RESP 18
[2018-10-07] MEDS: PANTOPRAZOLE (EC) 40 MG TAB PO SCH (06:04)
[2018-10-07] MEDS: INSULIN ASPART [NOVOLOG] 3 ML PEN SC SCH ×4 (07:00→21:00)
[2018-10-07 07:45] VITALS: BP 107/70; PULSE 83; RESP 19
[2018-10-07] MEDS: METOPROLOL 25 MG TAB PO SCH ×2 (08:34→21:00)
[2018-10-07] MEDS: LISINOPRIL 5 MG TAB PO SCH (08:34)
[2018-10-07 13:59] VITALS: BP 104/69; PULSE 94; RESP 16
--- NOTE | 2018-10-07 14:16 | PN ---
Date/Time of Note Date/Time of Note DATE: 10/07/18 TIME: 14:16 Assessment/Plan VTE Prophylaxis Risk score (from Ns)>0 risk: 2 SCD applied (from Ns): No SCD contraindicated: low risk/ambulating Pharmacological prophylaxis: NA/contraindicated Pharm contraindication: low risk/ambulating Lines/Catheters [facility] Saline Lock Urinary Cath still in place: No Assessment/Plan Hospital Course S: No acute events overnight,. O: VS - see below PE: Gen: Well developed man sleeping comfortably HEENT: PERRL, moist mucous membranes, Card: Regular rate and rhythm no murmurs Pulm: CTA bilaterally, no crackles. Abd: Soft, nondistended Ext: No cyanosis/clubbing/edema Neuro: Appears to still have mental slowing; still some significant delay before answering questions. Otherwise, 4/5 strength A/P: 33 yo man brought in found down with subsequent JULIAN secondary to rh abdomyolysis; positive for alcohol, methamphetamine, cannabis, opioids as well. #Encephalopathy and Polyneuropathy- Despite extubation on 08/24, he remains lethargic and weak.- Head CT 08/20 negative- Repeat CT on 08/31 shows some edema of the basal ganglia, confirmed on MRI, this likely represents residual toxic metabolic effect - TSH, ammonia, AM cortisol are normal. CK has normalized-also there is associated with proximal muscle weakness but intact sensation-MRI C spine was most notable for signal changes within the paraspinal musculature of C3-C4 through C5-C6... which is likely a sequelae of rhabdomyolysis. - Reorient as needed - Continue physical therapy and occupational therapy - Plan for ARU vs SNF when patient is able to take a few steps on his own-but "no bed available apparently now " in ARU # Renal failure- resolved now as BUN and creatinine levels are back to normal, patient has adequate urine output- Oliguric renal failure with hyperkalemia (after potassium replacement), also presented with severe metabolic acidosis- Likely due to a combination of rhabdo and drug use. #Hematochezia- resolved- Nurse reported maroon colored stool on 09/01- EGD 09/02 only with mild gastritis and distal esophagitis- MD witnessed maroon colored, grainy stool on 09/03. Rectal exam negative for external hemorrhoids or palpable internal hemorrhoids. Colonoscopy showed solitary rectal ulcer syndrome, bleeding likely from the rectal ulcer. -Continue Protonix daily for regular ulcer PPx. #Bacteremia- Had fever on 08/27 - Blood culture (x1 unfortunately) from that day is growing coag negative staph, a common contaminant. Repeat blood culture negative.- D/Matias right IJ. But his femoral dialysis catheter may also be a source of infection -wound culture from the groin area where the dialysis catheter was grew positive Pseudomonas, Enterobacter, and VRE. Status post treatment with antibiotics for this infection. Tip of Saurabh catheter culture was positive for Rosa on September 09, 2018. # acute respiratory failure- resolved, now on room air - extubated 08/24, was likely secondary to polysubstance overdose resulting in multiorgan dysfunction; patient had subsequent severe metabolic acidosis with inadequate respiratory compensation-now oxygen levels stable - s/p antibiotic treatment for CAP earlier this admission # Elevated troponin-now appears stable- Likely demand ischemia from drug use. Will not treat per NSTEMI protocol. # transaminitis: -resolved -May be from shock liver or drug use.- Hep B, Hep C negative. LFTs have trended down. -Monitor for now # Rhabdomyolysis -occurred earlier this admission, patient required ICU care at that time, now resolved # Coagulopathy- Resolved. # polysubstance abuse - Again patient was found to be positive for opioids, methamphetamine, marijuana and an elevated blood alcohol level. -Earlier this admission ordered for thiamine 300 mg IM daily times 3 days, further treatment as per the clinical course # DVT and GI prophylaxis: Protonix twice daily Dispo: Patient awaiting possible placement to ARU "when bed available". Also strongly considering SNF as well. Result Diagram: 10/06/18 0523 10/06/18 0523 Results 24hrs Laboratory Tests Test 10/06/18 17:39 10/06/18 20:20 10/07/18 08:30 10/07/18 12:51 Bedside Glucose 117 140 112 102 Exam/Review of Systems Exam Vitals Vital Signs Date Temp Pulse Resp B/P (MAP) Pulse Ox O2 O2 Flow FiO2 Time Delivery Rate 10/07/18 98.5 94 16 104/69 96 13:59 (81) Intake and Output 10/06/18 10/06/18 10/07/18 1515:00 23:00 07:00 IntakeIntake Total 960 ml 720 ml BalanceBalance 960 ml 720 ml Results Results 24hrs Laboratory Tests Test 10/06/18 17:39 10/06/18 20:20 10/07/18 08:30 10/07/18 12:51 Bedside Glucose 117 140 112 102 Medications Medication Current Medications Miscellaneous Information 1 ea NOTE XX ; Start 08/21/18 at 16:30 Glucose (Glutose) 15 gm Q15M PRN PO DECREASED GLUCOSE; Start 08/21/18 at 16:30 Glucose (Glutose) 22.5 gm Q15M PRN PO DECREASED GLUCOSE; Start 08/21/18 at 16:30 Dextrose (D50w Syringe) 25 ml Q15M PRN IV DECREASED GLUCOSE; Start 08/21/18 at 16:30 Dextrose (D50w Syringe) 50 ml Q15M PRN IV DECREASED GLUCOSE; Start 08/21/18 at 16:30 Glucagon (Glucagen) 1 mg Q15M PRN IM DECREASED GLUCOSE; Start 08/21/18 at 16:30 Glucose (Glutose) 15 gm Q15M PRN BUCCAL DECREASED GLUCOSE; Start 08/21/18 at 16:30 Metoprolol Tartrate (Lopressor) 25 mg BID PO Last administered on 10/06/18at 20:22; Admin Dose 25 MG; Start 08/23/18 at 21:00 Ondansetron HCl (Zofran Inj) 4 mg Q6H PRN IV NAUSEA AND/OR VOMITING Last administered on 08/25/18at 21:47; Admin Dose 4 MG; Start 08/25/18 at 21:30 Diagnostic Test (Pha) (Accu-Chek) 1 ea 02 XX Last administered on 09/30/18at 02:00; Admin Dose 1 EA; Start 08/27/18 at 02:00 Heparin Sodium (Porcine) (Heparin (5000 Units/1ml)) 5,000 unit Q8 SC Last administered on 09/01/18at 14:27; Admin Dose 5,000 UNIT; Start 08/29/18 at 14:00; Status Hold Aspirin (Aspirin) 81 mg DAILY PO Last administered on 09/03/18at 08:37; Admin Dose 81 MG; Start 08/30/18 at 09:00; Status Hold Insulin Aspart (Novolog Insulin Pen) (Adult SC Insulin - Mild Algorithm)... AC MEALS AND BEDTIME SC Last administered on 10/05/18 20:47; Admin Dose 1 UNIT; Start 09/03/18 at 07:00 Pantoprazole (Protonix Tab) 40 mg DAILY@06 PO Last administered on 10/07/18 06:04; Admin Dose 40 MG; Start 09/19/18 at 06:00 Tramadol HCl (Ultram) 50 mg Q6H PRN PO MODERATE PAIN LEVEL 4-6 Last administered on 09/29/18 07:36; Admin Dose 50 MG; Start 09/23/18 at 15:00 Lisinopril (Zestril) 5 mg DAILY PO Last administered on 10/07/18 08:34; Admin Dose 5 MG; Start 09/28/18 at 14:00 CINTIA ESPINOSA Oct 07, 2018 14:16
--- NOTE | 2018-10-07 16:28 | CONS ---
Assessment/Plan Assessment/Plan Hospital Course (Demo Recall) LATE ENTRY 10/06/18 at 4pm S/P Respiratory failure status post extubation Low normal left ventricular ejection fraction 50% Sepsis S/P Acute kidney injury, was on hemodialysis Myocardial infarction Encephalopathy GI bleed Liver dysfunction Illicit drug use -Off aspirin secondary to GI bleed. Continue beta-kishan as tolerated. -Medical therapy for post PR - possible statin in the future if liver funtion stable Consultation Date/Type/Reason Admit Date/Time Aug 20, 2018 at 21:39 Initial Consult Date 08/21/18 Type of Consult Cardiology Requesting Provider: YUMIKO JC MD Date/Time of Note DATE: 10/07/18 TIME: 16:26 24 HR Interval Summary Free Text/Dictation no sob, cp, palp Exam/Review of Systems Vital Signs Vitals Vital Signs Date Temp Pulse Resp B/P (MAP) Pulse Ox O2 O2 Flow FiO2 Time Delivery Rate 10/07/18 98.5 94 16 104/69 96 13:59 (81) Intake and Output 10/06/18 10/06/18 10/07/18 1515:00 23:00 07:00 IntakeIntake Total 960 ml 720 ml BalanceBalance 960 ml 720 ml Exam Exam nad Constitutional: alert Head: normocephalic Respiratory: other (course bs, no wheeze) Cardiovascular: regular rate and rhythm, other (s1s2) Gastrointestinal: soft, non-tender, bowel sounds Extremities: other (no edema) Labs Result Diagram: 10/06/18 0523 10/06/18 0523 Results 24hrs Laboratory Tests Test 10/06/18 17:39 10/06/18 20:20 10/07/18 08:30 10/07/18 12:51 Bedside Glucose 117 140 112 102 Medications Medications Current Medications Miscellaneous Information 1 ea NOTE XX ; Start 08/21/18 at 16:30 Glucose (Glutose) 15 gm Q15M PRN PO DECREASED GLUCOSE; Start 08/21/18 at 16:30 Glucose (Glutose) 22.5 gm Q15M PRN PO DECREASED GLUCOSE; Start 08/21/18 at 16:30 Dextrose (D50w Syringe) 25 ml Q15M PRN IV DECREASED GLUCOSE; Start 08/21/18 at 16:30 Dextrose (D50w Syringe) 50 ml Q15M PRN IV DECREASED GLUCOSE; Start 08/21/18 at 16:30 Glucagon (Glucagen) 1 mg Q15M PRN IM DECREASED GLUCOSE; Start 08/21/18 at 16:30 Glucose (Glutose) 15 gm Q15M PRN BUCCAL DECREASED GLUCOSE; Start 08/21/18 at 16:30 Metoprolol Tartrate (Lopressor) 25 mg BID PO Last administered on 10/06/18 20:22; Admin Dose 25 MG; Start 08/23/18 at 21:00 Ondansetron HCl (Zofran Inj) 4 mg Q6H PRN IV NAUSEA AND/OR VOMITING Last administered on 08/25/18at 21:47; Admin Dose 4 MG; Start 08/25/18 at 21:30 Diagnostic Test (Pha) (Accu-Chek) 1 ea 02 XX Last administered on 09/30/18 02:00; Admin Dose 1 EA; Start 08/27/18 at 02:00 Heparin Sodium (Porcine) (Heparin (5000 Units/1ml)) 5,000 unit Q8 SC Last administered on 09/01/18at 14:27; Admin Dose 5,000 UNIT; Start 08/29/18 at 14:00; Status Hold Aspirin (Aspirin) 81 mg DAILY PO Last administered on 09/03/18at 08:37; Admin Dose 81 MG; Start 08/30/18 at 09:00; Status Hold Insulin Aspart (Novolog Insulin Pen) (Adult SC Insulin - Mild Algorithm)... AC MEALS AND BEDTIME SC Last administered on 10/05/18 20:47; Admin Dose 1 UNIT; Start 09/03/18 at 07:00 Pantoprazole (Protonix Tab) 40 mg DAILY@06 PO Last administered on 10/07/18 06:04; Admin Dose 40 MG; Start 09/19/18 at 06:00 Tramadol HCl (Ultram) 50 mg Q6H PRN PO MODERATE PAIN LEVEL 4-6 Last administered on 09/29/18 07:36; Admin Dose 50 MG; Start 09/23/18 at 15:00 Lisinopril (Zestril) 5 mg DAILY PO Last administered on 10/07/18 08:34; Admin Dose 5 MG; Start 09/28/18 at 14:00 Kana Phoenix DO Oct 07, 2018 16:28
--- NOTE | 2018-10-07 16:29 | CONS ---
Assessment/Plan Assessment/Plan Hospital Course (Demo Recall) S/P Respiratory failure status post extubation Low normal left ventricular ejection fraction 50% Sepsis S/P Acute kidney injury, was on hemodialysis Myocardial infarction Encephalopathy GI bleed Liver dysfunction Illicit drug use -Off aspirin secondary to GI bleed. Continue beta-kishan as tolerated. -Medical therapy for post WI - possible statin in the future if liver function stable -Given low bp, will dc joanie-i Consultation Date/Type/Reason Admit Date/Time Aug 20, 2018 at 21:39 Initial Consult Date 08/21/18 Type of Consult Cardiology Requesting Provider: YUMIKO JC MD Date/Time of Note DATE: 10/07/18 TIME: 16:28 24 HR Interval Summary Free Text/Dictation no sob, palp, cp Exam/Review of Systems Vital Signs Vitals Vital Signs Date Temp Pulse Resp B/P (MAP) Pulse Ox O2 O2 Flow FiO2 Time Delivery Rate 10/07/18 98.5 94 16 104/69 96 13:59 (81) Intake and Output 10/06/18 10/06/18 10/07/18 1515:00 23:00 07:00 IntakeIntake Total 960 ml 720 ml BalanceBalance 960 ml 720 ml Exam Exam nad Constitutional: alert Head: normocephalic Respiratory: clear to auscultation, normal air movement Cardiovascular: regular rate and rhythm Gastrointestinal: soft, non-tender, bowel sounds Extremities: other (no edema) Labs Result Diagram: 10/06/18 0523 10/06/18522 Results 24hrs Laboratory Tests Test 10/06/18 17:39 10/06/18 20:20 10/07/18 08:30 10/07/18 12:51 Bedside Glucose 117 140 112 102 Medications Medications Current Medications Miscellaneous Information 1 ea NOTE XX ; Start 08/21/18 at 16:30 Glucose (Glutose) 15 gm Q15M PRN PO DECREASED GLUCOSE; Start 08/21/18 at 16:30 Glucose (Glutose) 22.5 gm Q15M PRN PO DECREASED GLUCOSE; Start 08/21/18 at 16:30 Dextrose (D50w Syringe) 25 ml Q15M PRN IV DECREASED GLUCOSE; Start 08/21/18 at 16:30 Dextrose (D50w Syringe) 50 ml Q15M PRN IV DECREASED GLUCOSE; Start 08/21/18 at 16:30 Glucagon (Glucagen) 1 mg Q15M PRN IM DECREASED GLUCOSE; Start 08/21/18 at 16:30 Glucose (Glutose) 15 gm Q15M PRN BUCCAL DECREASED GLUCOSE; Start 08/21/18 at 16:30 Metoprolol Tartrate (Lopressor) 25 mg BID PO Last administered on 10/06/18 20:22; Admin Dose 25 MG; Start 08/23/18 at 21:00 Ondansetron HCl (Zofran Inj) 4 mg Q6H PRN IV NAUSEA AND/OR VOMITING Last administered on 08/25/18at 21:47; Admin Dose 4 MG; Start 08/25/18 at 21:30 Diagnostic Test (Pha) (Accu-Chek) 1 ea 02 XX Last administered on 09/30/18 02:00; Admin Dose 1 EA; Start 08/27/18 at 02:00 Heparin Sodium (Porcine) (Heparin (5000 Units/1ml)) 5,000 unit Q8 SC Last administered on 09/01/18 14:27; Admin Dose 5,000 UNIT; Start 08/29/18 at 14:00; Status Hold Aspirin (Aspirin) 81 mg DAILY PO Last administered on 09/03/18 08:37; Admin Dose 81 MG; Start 08/30/18 at 09:00; Status Hold Insulin Aspart (Novolog Insulin Pen) (Adult SC Insulin - Mild Algorithm)... AC MEALS AND BEDTIME SC Last administered on 10/05/18 20:47; Admin Dose 1 UNIT; Start 09/03/18 at 07:00 Pantoprazole (Protonix Tab) 40 mg DAILY@06 PO Last administered on 10/07/18 06:04; Admin Dose 40 MG; Start 09/19/18 at 06:00 Tramadol HCl (Ultram) 50 mg Q6H PRN PO MODERATE PAIN LEVEL 4-6 Last administered on 09/29/18 07:36; Admin Dose 50 MG; Start 09/23/18 at 15:00 Lisinopril (Zestril) 5 mg DAILY PO Last administered on 10/07/18 08:34; Admin Dose 5 MG; Start 09/28/18 at 14:00 Kana Phoenix DO Oct 07, 2018 16:29
[2018-10-07 20:06] VITALS: BP 99/59; PULSE 90; RESP 16
[2018-10-07 21:50] VITALS: BP 101/67; PULSE 84
[2018-10-08 02:00] VITALS: BP 100/70; PULSE 83; RESP 16
[2018-10-08] MEDS: ACCU-CHEK XX SCH (02:00)
[2018-10-08] MEDS: PANTOPRAZOLE (EC) 40 MG TAB PO SCH (05:35)
[2018-10-08] MEDS: INSULIN ASPART [NOVOLOG] 3 ML PEN SC SCH ×4 (07:00→21:00)
[2018-10-08 07:27] VITALS: BP 106/59; PULSE 87; RESP 18
[2018-10-08] MEDS: METOPROLOL 25 MG TAB PO SCH ×2 (08:39→21:00)
[2018-10-08] MEDS: LISINOPRIL 5 MG TAB PO SCH (08:48)
--- NOTE | 2018-10-08 11:45 | PN ---
Date/Time of Note Date/Time of Note DATE: 10/08/18 TIME: 11:44 Assessment/Plan VTE Prophylaxis Risk score (from Nsg)>0 risk: 2 SCD applied (from Ns): No SCD contraindicated: other Pharmacological prophylaxis: other Pharm contraindication: low risk/ambulating Lines/Catheters IV Catheter Type (from Nrs): Saline Lock Urinary Cath still in place: No Assessment/Plan Hospital Course S: No acute events overnight. Foot x-ray results reviewed, negative. O: VS - see below PE: Gen: Well developed man sleeping comfortably HEENT: PERRL, moist mucous membranes, Card: Regular rate and rhythm no murmurs Pulm: CTA bilaterally, no crackles. Abd: Soft, nondistended Ext: No cyanosis/clubbing/edema Neuro: Appears to still have mental slowing; still some significant delay before answering questions. Otherwise, 4/5 strength A/P: 33 yo man brought in found down with subsequent JULIAN secondary to rhabdomyolysis; positive for alcohol, methamphetamine, cannabis, opioids as well. #Encephalopathy and Polyneuropathy- Despite extubation on 08/24, he remains lethargic and weak.- Head CT 08/20 negative- Repeat CT on 08/31 shows some edema of the basal ganglia, confirmed on MRI, this likely represents residual toxic metabolic effect - TSH, ammonia, AM cortisol are normal. CK has normalized-also there is associated with proximal muscle weakness but intact sensation-MRI C spine was most notable for signal changes within the paraspinal musculature of C3-C4 through C5-C6... which is likely a sequelae of rhabdomyolysis. - Reorient as needed - Continue physical therapy and occupational therapy - Plan for ARU vs SNF when patient is able to take a few steps on his own-but "no bed available apparently now " at ARU # Renal failure- resolved now as BUN and creatinine levels are back to normal, patient has adequate urine output- Oliguric renal failure with hyperkalemia (after potassium replacement), also presented with severe metabolic acidosis- Likely due to a combination of rhabdo and drug use. #Hematochezia- resolved- Nurse reported maroon colored stool on 09/01- EGD 09/02 only with mild gastritis and distal esophagitis- MD witnessed maroon colored, grainy stool on 09/03. Rectal exam negative for external hemorrhoids or palpable internal hemorrhoids. Colonoscopy showed solitary rectal ulcer syndrome, bleeding likely from the rectal ulcer. -Continue Protonix daily for regular ulcer PPx. #Bacteremia- Had fever on 08/27 - Blood culture (x1 unfortunately) from that day is growing coag negative staph, a common contaminant. Repeat blood culture negative.- D/Matias right IJ. But his femoral dialysis catheter may also be a source of infection -wound culture from the groin area where the dialysis catheter was grew positive Pseudomonas, Enterobacter, and VRE. Status post treatment with antibiotics for this infection. Tip of Saurabh catheter culture was positive for Rosa on September 09, 2018. # acute respiratory failure- resolved, now on room air - extubated 08/24, was likely secondary to polysubstance overdose resulting in multiorgan dysfunction; patient had subsequent severe metabolic acidosis with inadequate respiratory compensation-now oxygen levels stable - s/p antibiotic treatment for CAP earlier this admission # Elevated troponin-now appears stable- Likely demand ischemia from drug use. Will not treat per NSTEMI protocol. # transaminitis: -resolved -May be from shock liver or drug use.- Hep B, Hep C negative. LFTs have trended down. -Monitor for now # Rhabdomyolysis -occurred earlier this admission, patient required ICU care at that time, now resolved # Coagulopathy- Resolved. # polysubstance abuse - Again patient was found to be positive for opioids, methamphetamine, marijuana and an elevated blood alcohol level. -Earlier this admission ordered for thiamine 300 mg IM daily times 3 days, further treatment as per the clinical course # DVT and GI prophylaxis: Protonix twice daily Dispo: Patient awaiting possible placement to ARU "when bed available". Also strongly considering SNF as well. Result Diagram: 10/06/18 0523 10/06/1823 Results 24hrs Laboratory Tests Test 10/07/18 12:51 10/07/18 17:53 10/07/18 21:46 10/08/18 08:47 Bedside Glucose 102 106 100 126 Exam/Review of Systems Exam Vitals Vital Signs Date Temp Pulse Resp B/P (MAP) Pulse Ox O2 O2 Flow FiO2 Time Delivery Rate 10/08/18 98.6 87 18 106/59 99 07:27 (75) Intake and Output 10/07/18 10/07/18 10/08/18 1515:00 23:00 07:00 IntakeIntake Total 960 ml 480 ml OutputOutput Total 400 ml BalanceBalance 960 ml 480 ml -400 ml Results Results 24hrs Laboratory Tests Test 10/07/18 12:51 10/07/18 17:53 10/07/18 21:46 10/08/18 08:47 Bedside Glucose 102 106 100 126 Medications Medication Current Medications Miscellaneous Information 1 ea NOTE XX ; Start 08/21/18 at 16:30 Glucose (Glutose) 15 gm Q15M PRN PO DECREASED GLUCOSE; Start 08/21/18 at 16:30 Glucose (Glutose) 22.5 gm Q15M PRN PO DECREASED GLUCOSE; Start 08/21/18 at 16:30 Dextrose (D50w Syringe) 25 ml Q15M PRN IV DECREASED GLUCOSE; Start 08/21/18 at 16:30 Dextrose (D50w Syringe) 50 ml Q15M PRN IV DECREASED GLUCOSE; Start 08/21/18 at 16:30 Glucagon (Glucagen) 1 mg Q15M PRN IM DECREASED GLUCOSE; Start 08/21/18 at 16:30 Glucose (Glutose) 15 gm Q15M PRN BUCCAL DECREASED GLUCOSE; Start 08/21/18 at 16:30 Metoprolol Tartrate (Lopressor) 25 mg BID PO Last administered on 10/06/18at 20:22; Admin Dose 25 MG; Start 08/23/18 at 21:00 Ondansetron HCl (Zofran Inj) 4 mg Q6H PRN IV NAUSEA AND/OR VOMITING Last administered on 08/25/18at 21:47; Admin Dose 4 MG; Start 08/25/18 at 21:30 Diagnostic Test (Pha) (Accu-Chek) 1 ea 02 XX Last administered on 09/30/18at 02:00; Admin Dose 1 EA; Start 08/27/18 at 02:00 Heparin Sodium (Porcine) (Heparin (5000 Units/1ml)) 5,000 unit Q8 SC Last administered on 09/01/18at 14:27; Admin Dose 5,000 UNIT; Start 08/29/18 at 14:00; Status Hold Aspirin (Aspirin) 81 mg DAILY PO Last administered on 09/03/18at 08:37; Admin Dose 81 MG; Start 08/30/18 at 09:00; Status Hold Insulin Aspart (Novolog Insulin Pen) (Adult SC Insulin - Mild Algorithm)... AC MEALS AND BEDTIME SC Last administered on 10/05/18 20:47; Admin Dose 1 UNIT; Start 09/03/18 at 07:00 Pantoprazole (Protonix Tab) 40 mg DAILY@06 PO Last administered on 10/08/18 05:35; Admin Dose 40 MG; Start 09/19/18 at 06:00 Tramadol HCl (Ultram) 50 mg Q6H PRN PO MODERATE PAIN LEVEL 4-6 Last administered on 09/29/18 07:36; Admin Dose 50 MG; Start 09/23/18 at 15:00 Lisinopril (Zestril) 5 mg DAILY PO Last administered on 10/08/18 08:48; Admin Dose 5 MG; Start 09/28/18 at 14:00 CINTIA ESPINOSA Oct 08, 2018 11:45
[2018-10-08 15:05] VITALS: BP 97/61; PULSE 125; RESP 18
[2018-10-08 20:05] VITALS: BP 90/55; PULSE 98; RESP 16
--- NOTE | 2018-10-09 00:35 | PN ---
Date/Time of Note Date/Time of Note DATE: 10/09/18 TIME: 00:34 Assessment/Plan VTE Prophylaxis Risk score (from Nsg)>0 risk: 4 SCD applied (from Nsg): No SCD contraindicated: low risk/ambulating Pharmacological prophylaxis: other Pharm contraindication: low risk/ambulating Lines/Catheters IV Catheter Type (from Nrs): Saline Lock Urinary Cath still in place: No Assessment/Plan Hospital Course S: No acute events overnight O: VS - see below PE: Gen: Sitting in chair, family at bedside, smiles HEENT: PERRL, moist mucous membranes, Card: Regular rate and rhythm no murmurs Pulm: CTA bilaterally, no crackles. Abd: Soft, nondistended Ext: No cyanosis/clubbing/edema Neuro: ? mental slowing; still some delay before answering questions. Otherwise, 4/5 strength A/P: 33 yo man brought in found down with subsequent JULIAN secondary to rhabdomyolysis; positive for alcohol, methamphetamine, cannabis, opioids as well. #Encephalopathy and Polyneuropathy- Despite extubation on 08/24, he remains lethargic and weak.- Head CT 08/20 negative- Repeat CT on 08/31 shows some edema of the basal ganglia, confirmed on MRI, this likely represents residual toxic metabolic effect - TSH, ammonia, AM cortisol are normal. CK has normalized-also there is associated with proximal muscle weakness but intact sensation-MRI C spine was most notable for signal changes within the paraspinal musculature of C3-C4 through C5-C6... which is likely a sequelae of rhabdomyolysis. - Reorient as needed - Continue physical therapy and occupational therapy - Plan for ARU vs SNF when patient is able to take a few steps on his own-but "no bed available apparently now " at ARU # Renal failure- resolved now as BUN and creatinine levels are back to normal, patient has adequate urine output- Oliguric renal failure with hyperkalemia (after potassium replacement), also presented with severe metabolic acidosis- Likely due to a combination of rhabdo and drug use. #Hematochezia- resolved- Nurse reported maroon colored stool on 09/01- EGD 09/02 only with mild gastritis and distal esophagitis- MD witnessed maroon colored, grainy stool on 09/03. Rectal exam negative for external hemorrhoids or palpable internal hemorrhoids. Colonoscopy showed solitary rectal ulcer syndrome, bleeding likely from the rectal ulcer. -Continue Protonix daily for regular ulcer PPx. #Bacteremia- Had fever on 08/27 - Blood culture (x1 unfortunately) from that day is growing coag negative staph, a common contaminant. Repeat blood culture negative.- D/Matias right IJ. But his femoral dialysis catheter may also be a source of infection -wound culture from the groin area where the dialysis catheter was grew positive Pseudomonas, Enterobacter, and VRE. Status post treatment with antibiotics for this infection. Tip of Saurabh catheter culture was positive for Rosa on September 09, 2018. # acute respiratory failure- resolved, now on room air - extubated 08/24, was likely secondary to polysubstance overdose resulting in multiorgan dysfunction; patient had subsequent severe metabolic acidosis with inadequate respiratory compensation-now oxygen levels stable - s/p antibiotic treatment for CAP earlier this admission # Elevated troponin-now appears stable- Likely demand ischemia from drug use. Will not treat per NSTEMI protocol. # transaminitis: -resolved -May be from shock liver or drug use.- Hep B, Hep C negative. LFTs have trended down. -Monitor for now # Rhabdomyolysis -occurred earlier this admission, patient required ICU care at that time, now resolved # Coagulopathy- Resolved. # polysubstance abuse - Again patient was found to be positive for opioids, methamphetamine, marijuana and an elevated blood alcohol level. -Earlier this admission ordered for thiamine 300 mg IM daily times 3 days, further treatment as per the clinical course # DVT and GI prophylaxis: Protonix twice daily Dispo: Patient awaiting possible placement to ARU "when bed available". Also strongly considering SNF as well. Result Diagram: 10/06/18 0523 10/06/18 0523 Results 24hrs Laboratory Tests Test 10/08/18 08:47 10/08/18 13:14 10/08/18 17:33 10/08/18 21:46 Bedside Glucose 126 119 120 119 Exam/Review of Systems Exam Vitals Vital Signs Date Temp Pulse Resp B/P (MAP) Pulse Ox O2 O2 Flow FiO2 Time Delivery Rate 10/08/18 99.7 98 16 90/55 (67) 99 20:05 Intake and Output 10/08/18 10/08/18 10/09/18 1515:00 23:00 07:00 IntakeIntake Total 480 ml 840 ml OutputOutput Total 300 ml BalanceBalance 480 ml 540 ml Results Results 24hrs Laboratory Tests Test 10/08/18 08:47 10/08/18 13:14 10/08/18 17:33 10/08/18 21:46 Bedside Glucose 126 119 120 119 Medications Medication Current Medications Miscellaneous Information 1 ea NOTE XX ; Start 08/21/18 at 16:30 Glucose (Glutose) 15 gm Q15M PRN PO DECREASED GLUCOSE; Start 08/21/18 at 16:30 Glucose (Glutose) 22.5 gm Q15M PRN PO DECREASED GLUCOSE; Start 08/21/18 at 16:30 Dextrose (D50w Syringe) 25 ml Q15M PRN IV DECREASED GLUCOSE; Start 08/21/18 at 16:30 Dextrose (D50w Syringe) 50 ml Q15M PRN IV DECREASED GLUCOSE; Start 08/21/18 at 16:30 Glucagon (Glucagen) 1 mg Q15M PRN IM DECREASED GLUCOSE; Start 08/21/18 at 16:30 Glucose (Glutose) 15 gm Q15M PRN BUCCAL DECREASED GLUCOSE; Start 08/21/18 at 16:30 Metoprolol Tartrate (Lopressor) 25 mg BID PO Last administered on 10/06/18at 20:22; Admin Dose 25 MG; Start 08/23/18 at 21:00 Ondansetron HCl (Zofran Inj) 4 mg Q6H PRN IV NAUSEA AND/OR VOMITING Last administered on 08/25/18at 21:47; Admin Dose 4 MG; Start 08/25/18 at 21:30 Diagnostic Test (Pha) (Accu-Chek) 1 ea 02 XX Last administered on 09/30/18at 02:00; Admin Dose 1 EA; Start 08/27/18 at 02:00 Heparin Sodium (Porcine) (Heparin (5000 Units/1ml)) 5,000 unit Q8 SC Last administered on 09/01/18at 14:27; Admin Dose 5,000 UNIT; Start 08/29/18 at 14:00; Status Hold Aspirin (Aspirin) 81 mg DAILY PO Last administered on 09/03/18at 08:37; Admin Dose 81 MG; Start 08/30/18 at 09:00; Status Hold Insulin Aspart (Novolog Insulin Pen) (Adult SC Insulin - Mild Algorithm)... AC MEALS AND BEDTIME SC Last administered on 10/05/18 20:47; Admin Dose 1 UNIT; Start 09/03/18 at 07:00 Pantoprazole (Protonix Tab) 40 mg DAILY@06 PO Last administered on 10/08/18 05:35; Admin Dose 40 MG; Start 09/19/18 at 06:00 Tramadol HCl (Ultram) 50 mg Q6H PRN PO MODERATE PAIN LEVEL 4-6 Last administered on 09/29/18 07:36; Admin Dose 50 MG; Start 09/23/18 at 15:00 Lisinopril (Zestril) 5 mg DAILY PO Last administered on 10/08/18 08:48; Admin Dose 5 MG; Start 09/28/18 at 14:00 CINTIA ESPINOSA Oct 09, 2018 00:35
[2018-10-09 02:00] VITALS: BP 110/74; PULSE 94; RESP 16
[2018-10-09] MEDS: ACCU-CHEK XX SCH (02:00)
[2018-10-09] MEDS: PANTOPRAZOLE (EC) 40 MG TAB PO SCH (05:44)
[2018-10-09] MEDS: INSULIN ASPART [NOVOLOG] 3 ML PEN SC SCH ×4 (07:00→20:32)
[2018-10-09 07:50] VITALS: BP 97/63; PULSE 105; RESP 16
[2018-10-09] MEDS: LISINOPRIL 5 MG TAB PO SCH (08:10)
[2018-10-09] MEDS: METOPROLOL 25 MG TAB PO SCH ×2 (08:10→20:19)
[2018-10-09 14:07] VITALS: BP 97/63; PULSE 105; RESP 16
[2018-10-09 20:14] VITALS: BP 99/64; PULSE 87; RESP 18
[2018-10-10] MEDS: ACCU-CHEK XX SCH (01:36)
[2018-10-10 01:45] VITALS: BP 101/66; PULSE 90; RESP 18
[2018-10-10] MEDS: PANTOPRAZOLE (EC) 40 MG TAB PO SCH (05:10)
[2018-10-10] MEDS: INSULIN ASPART [NOVOLOG] 3 ML PEN SC SCH ×4 (07:00→20:54)
[2018-10-10 08:09] VITALS: BP 99/68; PULSE 84; RESP 18
[2018-10-10] MEDS: METOPROLOL 25 MG TAB PO SCH ×2 (08:13→20:44)
[2018-10-10] MEDS: LISINOPRIL 5 MG TAB PO SCH (08:14)
--- NOTE | 2018-10-10 14:12 | PN ---
Date/Time of Note Date/Time of Note DATE: 10/10/18 TIME: 14:10 Assessment/Plan VTE Prophylaxis Risk score (from Ns)>0 risk: 2 SCD applied (from Ns): Yes Pharmacological prophylaxis: NA/contraindicated Pharm contraindication: bleeding Lines/Catheters IV Catheter Type (from Nrsg): Saline Lock Urinary Cath still in place: No Assessment/Plan Hospital Course 33 yo man brought in found down with subsequent JULIAN secondary to rhabdomyolysis; positive for alcohol, methamphetamine, cannabis, opioids as well. #Encephalopathy and Polyneuropathy- Despite extubation on 08/24, he remains lethargic and weak.- Head CT 08/20 negative- Repeat CT on 08/31 shows some edema of the basal ganglia, confirmed on MRI, this likely represents residual toxic metabolic effect - TSH, ammonia, AM cortisol are normal. CK has normalized-also there is associated with proximal muscle weakness but intact sensation-MRI C spine was most notable for signal changes within the paraspinal musculature of C3-C4 through C5-C6... which is likely a sequelae of rhabdomyolysis. - Reorient as needed - Continue physical therapy and occupational therapy - Plan for ARU when patient is able to take a few steps on his own. # Renal failure- resolved now as BUN and creatinine levels are back to normal, patient has adequate urine output- Oliguric renal failure with hyperkalemia (after potassium replacement), also presented with severe metabolic acidosis- Likely due to a combination of rhabdo and drug use. #Hematochezia- resolved- Nurse reported maroon colored stool on 09/01- EGD 09/02 only with mild gastritis and distal esophagitis- MD witnessed maroon colored, grainy stool on 09/03. Rectal exam negative for external hemorrhoids or palpable internal hemorrhoids. Colonoscopy showed solitary rectal ulcer syndrome, bleeding likely from the rectal ulcer. -Continue Protonix daily for regular ulcer PPx. #Bacteremia- Had fever on 08/27 - Blood culture (x1 unfortunately) from that day is growing coag negative staph, a common contaminant. Repeat blood culture negative.- D/Matias right IJ. But his femoral dialysis catheter may also be a source of infection -wound culture from the groin area where the dialysis catheter was grew positive Pseudomonas, Enterobacter, and VRE. Status post treatment with antibiotics for this infection. Tip of Saurabh catheter culture was positive for Rosa on September 09, 2018. # acute respiratory failure- resolved, now on room air - extubated 08/24, was likely secondary to polysubstance overdose resulting in multiorgan dysfunction; patient had subsequent severe metabolic acidosis with inadequate respiratory compensation-now oxygen levels stable - s/p antibiotic treatment for CAP earlier this admission # Elevated troponin-now appears stable- Likely demand ischemia from drug use. Will not treat per NSTEMI protocol. # transaminitis: -resolved -May be from shock liver or drug use.- Hep B, Hep C negative. LFTs have trended down. -Monitor for now # Rhabdomyolysis -occurred earlier this admission, patient required ICU care at that time, now resolved # Coagulopathy- Resolved. # polysubstance abuse - Again patient was found to be positive for opioids, methamphetamine, marijuana and an elevated blood alcohol level. -Earlier this admission ordered for thiamine 300 mg IM daily times 3 days, further treatment as per the clinical course # DVT and GI prophylaxis: Protonix twice daily Dispo: Patient's neuromuscular recovery appears to have plateaued. He's unlikely to significantly advance in ARU. At this time, SNF evaluation may be better. Currently being considered at [facility] Result Diagram: 10/06/18 0523 10/06/18 0523 Results 24hrs Laboratory Tests Test 10/09/18 17:50 10/09/18 20:32 10/10/18 08:13 10/10/18 12:19 Bedside Glucose 111 101 103 116 Subjective 24 Hr Interval Summary Free Text/Dictation No acute overnight events. Patient lying comfortably in bed, amenable to exam. Worked with PT today; able to sit-stand with assist, not able to walk still. Exam/Review of Systems Exam Vitals Vital Signs Date Temp Pulse Resp B/P (MAP) Pulse Ox O2 O2 Flow FiO2 Time Delivery Rate 10/10/18 98.6 84 18 99/68 (78) 99 Room Air 08:09 Intake and Output 10/09/18 10/09/18 10/10/18 1515:00 23:00 07:00 IntakeIntake Total 1440 ml 480 ml OutputOutput Total 400 ml BalanceBalance 1040 ml 480 ml Exam Gen: Sitting in chair, family at bedside, smiles HEENT: PERRL, moist mucous membranes, Card: Regular rate and rhythm no murmurs Pulm: CTA bilaterally, no crackles. Abd: Soft, nondistended Ext: No cyanosis/clubbing/edema Neuro: mental slowing; still some delay before answering questions. Otherwise, 4/5 strength upper extremities, 3/5 strength bilateral lower extremities Results Results 24hrs Laboratory Tests Test 10/09/18 17:50 10/09/18 20:32 10/10/18 08:13 10/10/18 12:19 Bedside Glucose 111 101 103 116 YUMIKO JC MD Oct 10, 2018 14:12
[2018-10-10 14:40] VITALS: BP 99/69; PULSE 115; RESP 18
--- NOTE | 2018-10-10 15:04 | CONS ---
Assessment/Plan Assessment/Plan Hospital Course (Demo Recall) S/P Respiratory failure status post extubation Low normal left ventricular ejection fraction 50% Sepsis S/P Acute kidney injury, was on hemodialysis Myocardial infarction Encephalopathy GI bleed Liver dysfunction Illicit drug use -Off aspirin secondary to GI bleed. Continue beta-kishan as tolerated. -Medical therapy for post NV - possible statin in the future if liver function stable Consultation Date/Type/Reason Admit Date/Time Aug 20, 2018 at 21:39 Initial Consult Date 08/21/18 Type of Consult Cardiology Requesting Provider: YUMIKO JC MD Date/Time of Note DATE: 10/10/18 TIME: 15:03 24 HR Interval Summary Free Text/Dictation Denies shortness of breath, chest pain Exam/Review of Systems Vital Signs Vitals Vital Signs Date Temp Pulse Resp B/P (MAP) Pulse Ox O2 O2 Flow FiO2 Time Delivery Rate 10/10/18 98.6 84 18 99/68 (78) 99 Room Air 08:09 Intake and Output 10/09/18 10/09/18 10/10/18 1515:00 23:00 07:00 IntakeIntake Total 1440 ml 480 ml OutputOutput Total 400 ml BalanceBalance 1040 ml 480 ml Exam Exam No apparent distress Constitutional: alert Head: normocephalic Respiratory: clear to auscultation Cardiovascular: regular rate and rhythm (S1-S2 heard) Gastrointestinal: soft, non-tender, bowel sounds Extremities: other (No significant edema) Labs Result Diagram: 10/06/18 0523 10/06/18522 Results 24hrs Laboratory Tests Test 10/09/18 17:50 10/09/18 20:32 10/10/18 08:13 10/10/18 12:19 Bedside Glucose 111 101 103 116 Medications Medications Current Medications Miscellaneous Information 1 ea NOTE XX ; Start 08/21/18 at 16:30 Glucose (Glutose) 15 gm Q15M PRN PO DECREASED GLUCOSE; Start 08/21/18 at 16:30 Glucose (Glutose) 22.5 gm Q15M PRN PO DECREASED GLUCOSE; Start 08/21/18 at 16:30 Dextrose (D50w Syringe) 25 ml Q15M PRN IV DECREASED GLUCOSE; Start 08/21/18 at 16:30 Dextrose (D50w Syringe) 50 ml Q15M PRN IV DECREASED GLUCOSE; Start 08/21/18 at 16:30 Glucagon (Glucagen) 1 mg Q15M PRN IM DECREASED GLUCOSE; Start 08/21/18 at 16:30 Glucose (Glutose) 15 gm Q15M PRN BUCCAL DECREASED GLUCOSE; Start 08/21/18 at 16:30 Metoprolol Tartrate (Lopressor) 25 mg BID PO Last administered on 10/06/18 20:22; Admin Dose 25 MG; Start 08/23/18 at 21:00 Ondansetron HCl (Zofran Inj) 4 mg Q6H PRN IV NAUSEA AND/OR VOMITING Last administered on 08/25/18at 21:47; Admin Dose 4 MG; Start 08/25/18 at 21:30 Diagnostic Test (Pha) (Accu-Chek) 1 ea 02 XX Last administered on 09/30/18 02:00; Admin Dose 1 EA; Start 08/27/18 at 02:00 Heparin Sodium (Porcine) (Heparin (5000 Units/1ml)) 5,000 unit Q8 SC Last administered on 09/01/18at 14:27; Admin Dose 5,000 UNIT; Start 08/29/18 at 14:00; Status Hold Aspirin (Aspirin) 81 mg DAILY PO Last administered on 09/03/18at 08:37; Admin Dose 81 MG; Start 08/30/18 at 09:00; Status Hold Insulin Aspart (Novolog Insulin Pen) (Adult SC Insulin - Mild Algorithm)... AC MEALS AND BEDTIME SC Last administered on 10/05/18 20:47; Admin Dose 1 UNIT; Start 09/03/18 at 07:00 Pantoprazole (Protonix Tab) 40 mg DAILY@06 PO Last administered on 10/10/18 05:10; Admin Dose 40 MG; Start 09/19/18 at 06:00 Tramadol HCl (Ultram) 50 mg Q6H PRN PO MODERATE PAIN LEVEL 4-6 Last administered on 09/29/18 07:36; Admin Dose 50 MG; Start 09/23/18 at 15:00 Lisinopril (Zestril) 5 mg DAILY PO Last administered on 10/08/18 08:48; Admin Dose 5 MG; Start 09/28/18 at 14:00 Kana Phoenix DO Oct 10, 2018 15:04
[2018-10-10 20:16] VITALS: BP 102/68; PULSE 82; RESP 18
[2018-10-11] MEDS: ACCU-CHEK XX SCH (02:00)
[2018-10-11 02:11] VITALS: BP 102/68; PULSE 88; RESP 18
[2018-10-11] MEDS: PANTOPRAZOLE (EC) 40 MG TAB PO SCH (05:20)
[2018-10-11] MEDS: INSULIN ASPART [NOVOLOG] 3 ML PEN SC SCH (07:00)
[2018-10-11 07:30] VITALS: BP 113/75; PULSE 90; RESP 20
[2018-10-11] MEDS: METOPROLOL 25 MG TAB PO SCH ×2 (08:24→20:35)
--- NOTE | 2018-10-11 12:18 | PN ---
Date/Time of Note Date/Time of Note DATE: 10/11/18 TIME: 12:17 Assessment/Plan VTE Prophylaxis Risk score (from Ns)>0 risk: 2 SCD applied (from Ns): Yes Pharmacological prophylaxis: NA/contraindicated Pharm contraindication: low risk/ambulating Lines/Catheters IV Catheter Type (from Nrsg): Saline Lock Urinary Cath still in place: No Assessment/Plan Hospital Course 33 yo man brought in found down with subsequent JULIAN secondary to rhabdomyolysis; positive for alcohol, methamphetamine, cannabis, opioids as well. #Encephalopathy and Polyneuropathy- Despite extubation on 08/24, he remains lethargic and weak.- Head CT 08/20 negative- Repeat CT on 08/31 shows some edema of the basal ganglia, confirmed on MRI, this likely represents residual toxic metabolic effect - TSH, ammonia, AM cortisol are normal. CK has normalized-also there is associated with proximal muscle weakness but intact sensation-MRI C spine was most notable for signal changes within the paraspinal musculature of C3-C4 through C5-C6... which is likely a sequelae of rhabdomyolysis. - Reorient as needed - Continue physical therapy and occupational therapy - Plan for ARU when patient is able to take a few steps on his own. # Renal failure- resolved now as BUN and creatinine levels are back to normal, patient has adequate urine output- Oliguric renal failure with hyperkalemia (after potassium replacement), also presented with severe metabolic acidosis- Likely due to a combination of rhabdo and drug use. #Hematochezia- resolved- Nurse reported maroon colored stool on 09/01- EGD 09/02 only with mild gastritis and distal esophagitis- MD witnessed maroon colored, grainy stool on 09/03. Rectal exam negative for external hemorrhoids or palpable internal hemorrhoids. Colonoscopy showed solitary rectal ulcer syndrome, bleeding likely from the rectal ulcer. -Continue Protonix daily for regular ulcer PPx. #Bacteremia- Had fever on 08/27 - Blood culture (x1 unfortunately) from that day is growing coag negative staph, a common contaminant. Repeat blood culture negative.- D/Matias right IJ. But his femoral dialysis catheter may also be a source of infection -wound culture from the groin area where the dialysis catheter was grew positive Pseudomonas, Enterobacter, and VRE. Status post treatment with antibiotics for this infection. Tip of Saurabh catheter culture was positive for Rosa on September 09, 2018. # acute respiratory failure- resolved, now on room air - extubated 08/24, was likely secondary to polysubstance overdose resulting in multiorgan dysfunction; patient had subsequent severe metabolic acidosis with inadequate respiratory compensation-now oxygen levels stable - s/p antibiotic treatment for CAP earlier this admission # Elevated troponin-now appears stable- Likely demand ischemia from drug use. Will not treat per NSTEMI protocol. # transaminitis: -resolved -May be from shock liver or drug use.- Hep B, Hep C negative. LFTs have trended down. -Monitor for now # Rhabdomyolysis -occurred earlier this admission, patient required ICU care at that time, now resolved # Coagulopathy- Resolved. # polysubstance abuse - Again patient was found to be positive for opioids, methamphetamine, marijuana and an elevated blood alcohol level. -Earlier this admission ordered for thiamine 300 mg IM daily times 3 days, further treatment as per the clinical course # DVT and GI prophylaxis: Protonix twice daily Dispo: Patient's neuromuscular recovery appears to have plateaued. He's unlikely to significantly advance in ARU. At this time, SNF evaluation may be better. Currently being considered at [facility] Results 24hrs Laboratory Tests Test 10/10/18 12:19 10/10/18 17:37 10/10/18 20:53 10/11/18 08:22 Bedside Glucose 116 104 107 113 Subjective 24 Hr Interval Summary Free Text/Dictation Patient sitting in chair, awake, alert. Exam/Review of Systems Exam Vitals Vital Signs Date Temp Pulse Resp B/P (MAP) Pulse Ox O2 O2 Flow FiO2 Time Delivery Rate 10/11/18 98.4 90 20 113/75 99 Room Air 07:30 (88) Intake and Output 10/10/18 10/10/18 10/11/18 1515:00 23:00 07:00 IntakeIntake Total 360 ml 720 ml BalanceBalance 360 ml 720 ml Exam Gen: Sitting in chair, awake and alert HEENT: PERRL, moist mucous membranes, Card: Regular rate and rhythm no murmurs Pulm: CTA bilaterally, no crackles. Abd: Soft, nondistended Ext: No cyanosis/clubbing/edema Neuro: mental slowing; still some delay before answering questions. Otherwise, 4/5 strength upper extremities, 3/5 strength bilateral lower extremities Results Results 24hrs Laboratory Tests Test 10/10/18 12:19 10/10/18 17:37 10/10/18 20:53 10/11/18 08:22 Bedside Glucose 116 104 107 113 Medications Medication Current Medications Miscellaneous Information 1 ea NOTE XX ; Start 08/21/18 at 16:30 Glucose (Glutose) 15 gm Q15M PRN PO DECREASED GLUCOSE; Start 08/21/18 at 16:30 Glucose (Glutose) 22.5 gm Q15M PRN PO DECREASED GLUCOSE; Start 08/21/18 at 16:30 Dextrose (D50w Syringe) 25 ml Q15M PRN IV DECREASED GLUCOSE; Start 08/21/18 at 16:30 Dextrose (D50w Syringe) 50 ml Q15M PRN IV DECREASED GLUCOSE; Start 08/21/18 at 16:30 Glucagon (Glucagen) 1 mg Q15M PRN IM DECREASED GLUCOSE; Start 08/21/18 at 16:30 Glucose (Glutose) 15 gm Q15M PRN BUCCAL DECREASED GLUCOSE; Start 08/21/18 at 16:30 Metoprolol Tartrate (Lopressor) 25 mg BID PO Last administered on 10/11/18at 08:24; Admin Dose 25 MG; Start 08/23/18 at 21:00 Ondansetron HCl (Zofran Inj) 4 mg Q6H PRN IV NAUSEA AND/OR VOMITING Last administered on 08/25/18at 21:47; Admin Dose 4 MG; Start 08/25/18 at 21:30 Diagnostic Test (Pha) (Accu-Chek) 1 ea 02 XX Last administered on 09/30/18at 02: 00; Admin Dose 1 EA; Start 08/27/18 at 02:00 Heparin Sodium (Porcine) (Heparin (5000 Units/1ml)) 5,000 unit Q8 SC Last administered on 09/01/18at 14:27; Admin Dose 5,000 UNIT; Start 08/29/18 at 14:00; Status Hold Aspirin (Aspirin) 81 mg DAILY PO Last administered on 09/03/18at 08:37; Admin Dose 81 MG; Start 08/30/18 at 09:00; Status Hold Insulin Aspart (Novolog Insulin Pen) (Adult SC Insulin - Mild Algorithm)... AC MEALS AND BEDTIME SC Last administered on 10/05/18at 20:47; Admin Dose 1 UNIT; Start 09/03/18 at 07:00 Pantoprazole (Protonix Tab) 40 mg DAILY@06 PO Last administered on 10/11/18 05:20; Admin Dose 40 MG; Start 09/19/18 at 06:00 Tramadol HCl (Ultram) 50 mg Q6H PRN PO MODERATE PAIN LEVEL 4-6 Last administered on 09/29/18at 07:36; Admin Dose 50 MG; Start 09/23/18 at 15:00 YUMIKO JC MD Oct 11, 2018 12:18
[2018-10-11 14:35] VITALS: BP 99/62; PULSE 86; RESP 20
--- NOTE | 2018-10-11 16:42 | CONS ---
Assessment/Plan Assessment/Plan Hospital Course (Demo Recall) S/P Respiratory failure status post extubation Low normal left ventricular ejection fraction 50% Sepsis S/P Acute kidney injury, was on hemodialysis Myocardial infarction Encephalopathy GI bleed Liver dysfunction Illicit drug use -Off aspirin secondary to GI bleed. -Continue beta-kishan as tolerated. -No new cardiac orders at the current time Consultation Date/Type/Reason Admit Date/Time Aug 20, 2018 at 21:39 Initial Consult Date 08/21/18 Type of Consult Cardiology Requesting Provider: YUMIKO JC MD Date/Time of Note DATE: 10/11/18 TIME: 16:41 24 HR Interval Summary Free Text/Dictation Denies shortness of breath, chest pain Exam/Review of Systems Vital Signs Vitals Vital Signs Date Temp Pulse Resp B/P (MAP) Pulse Ox O2 O2 Flow FiO2 Time Delivery Rate 10/11/18 97.8 86 20 99/62 (74) 100 Room Air 14:35 Intake and Output 10/10/18 10/10/18 10/11/18 1515:00 23:00 07:00 IntakeIntake Total 360 ml 720 ml BalanceBalance 360 ml 720 ml Exam Exam Undergoing physical therapy, no apparent distress Constitutional: alert Head: normocephalic Respiratory: clear to auscultation, normal air movement Cardiovascular: regular rate and rhythm (S1-S2 heard) Gastrointestinal: soft, non-tender, bowel sounds Extremities: other (No significant edema) Labs Results 24hrs Laboratory Tests Test 10/10/18 17:37 10/10/18 20:53 10/11/18 08:22 Bedside Glucose 104 107 113 Medications Medications Current Medications Metoprolol Tartrate (Lopressor) 25 mg BID PO Last administered on 10/11/18at 08:24; Admin Dose 25 MG; Start 08/23/18 at 21:00 Ondansetron HCl (Zofran Inj) 4 mg Q6H PRN IV NAUSEA AND/OR VOMITING Last administered on 08/25/18at 21:47; Admin Dose 4 MG; Start 08/25/18 at 21:30 Heparin Sodium (Porcine) (Heparin (5000 Units/1ml)) 5,000 unit Q8 SC Last administered on 09/01/18at 14:27; Admin Dose 5,000 UNIT; Start 08/29/18 at 14:00; Status Hold Aspirin (Aspirin) 81 mg DAILY PO Last administered on 09/03/18at 08:37; Admin Dose 81 MG; Start 08/30/18 at 09:00; Status Hold Pantoprazole (Protonix Tab) 40 mg DAILY@06 PO Last administered on 10/11/18at 05:20; Admin Dose 40 MG; Start 09/19/18 at 06:00 Tramadol HCl (Ultram) 50 mg Q6H PRN PO MODERATE PAIN LEVEL 4-6 Last administered on 09/29/18at 07:36; Admin Dose 50 MG; Start 09/23/18 at 15:00 Kana Phoenix DO Oct 11, 2018 16:42
[2018-10-11 19:27] VITALS: BP 99/66; PULSE 86; RESP 18
[2018-10-12 01:32] VITALS: BP 109/78; PULSE 89; RESP 18
[2018-10-12] MEDS: PANTOPRAZOLE (EC) 40 MG TAB PO SCH (05:44)
[2018-10-12 07:12] VITALS: BP 102/73; PULSE 78; RESP 20
[2018-10-12] MEDS: METOPROLOL 25 MG TAB PO SCH ×2 (08:12→20:31)
--- NOTE | 2018-10-12 11:41 | PN ---
Date/Time of Note Date/Time of Note DATE: 10/12/18 TIME: 11:40 Assessment/Plan VTE Prophylaxis Risk score (from Ns)>0 risk: 1 SCD applied (from Ns): Yes Pharmacological prophylaxis: NA/contraindicated Pharm contraindication: low risk/ambulating Lines/Catheters IV Catheter Type (from Nrs): Saline Lock Urinary Cath still in place: No Assessment/Plan Hospital Course 33 yo man brought in found down with subsequent JULIAN secondary to rhabdomyolysis; positive for alcohol, methamphetamine, cannabis, opioids as well. #Encephalopathy and Polyneuropathy- Despite extubation on 08/24, he remains lethargic and weak.- Head CT 08/20 negative- Repeat CT on 08/31 shows some edema of the basal ganglia, confirmed on MRI, this likely represents residual toxic metabolic effect - TSH, ammonia, AM cortisol are normal. CK has normalized-also there is associated with proximal muscle weakness but intact sensation-MRI C spine was most notable for signal changes within the paraspinal musculature of C3-C4 through C5-C6... which is likely a sequelae of rhabdomyolysis. - Reorient as needed - Continue physical therapy and occupational therapy # Renal failure- resolved now as BUN and creatinine levels are back to normal, patient has adequate urine output- Oliguric renal failure with hyperkalemia (after potassium replacement), also presented with severe metabolic acidosis- Likely due to a combination of rhabdo and drug use. #Hematochezia- resolved- Nurse reported maroon colored stool on 09/01- EGD 09/02 only with mild gastritis and distal esophagitis- MD witnessed maroon colored, grainy stool on 09/03. Rectal exam negative for external hemorrhoids or palpable internal hemorrhoids. Colonoscopy showed solitary rectal ulcer syndrome, bleeding likely from the rectal ulcer. -Continue Protonix daily for regular ulcer PPx. #Bacteremia- Had fever on 08/27 - Blood culture (x1 unfortunately) from that day is growing coag negative staph, a common contaminant. Repeat blood culture negative.- D/Matias right IJ. But his femoral dialysis catheter may also be a source of infection -wound culture from the groin area where the dialysis catheter was grew positive Pseudomonas, Enterobacter, and VRE. Status post treatment with antibiotics for this infection. Tip of Saurabh catheter culture was positive for Rosa on September 09, 2018. # acute respiratory failure- resolved, now on room air - extubated 08/24, was likely secondary to polysubstance overdose resulting in multiorgan dysfunction; patient had subsequent severe metabolic acidosis with inadequate respiratory compensation-now oxygen levels stable - s/p antibiotic treatment for CAP earlier this admission # Elevated troponin-now appears stable- Likely demand ischemia from drug use. Will not treat per NSTEMI protocol. # transaminitis: -resolved -May be from shock liver or drug use.- Hep B, Hep C negative. LFTs have trended down. -Monitor for now # Rhabdomyolysis -occurred earlier this admission, patient required ICU care at that time, now resolved # Coagulopathy- Resolved. # polysubstance abuse - Again patient was found to be positive for opioids, methamphetamine, marijuana and an elevated blood alcohol level. -Earlier this admission ordered for thiamine 300 mg IM daily times 3 days, further treatment as per the clinical course # DVT and GI prophylaxis: Protonix twice daily Dispo: Patient's neuromuscular recovery appears to have plateaued. He's unlikely to significantly advance in ARU. At this time, SNF evaluation may be better. Subjective 24 Hr Interval Summary Free Text/Dictation No acute overnight events. Patient sitting comfortably in chair. Exam/Review of Systems Exam Vitals Vital Signs Date Temp Pulse Resp B/P (MAP) Pulse Ox O2 O2 Flow FiO2 Time Delivery Rate 10/12/18 98.9 78 20 102/73 100 Room Air 07:12 (83) Intake and Output 10/11/18 10/11/18 10/12/18 1414:59 22:59 06:59 IntakeIntake Total 360 ml 360 ml BalanceBalance 360 ml 360 ml Exam Gen: Sitting in chair, awake and alert HEENT: PERRL, moist mucous membranes, Card: Regular rate and rhythm no murmurs Pulm: CTA bilaterally, no crackles. Abd: Soft, nondistended Ext: No cyanosis/clubbing/edema Medications Medication Current Medications Metoprolol Tartrate (Lopressor) 25 mg BID PO Last administered on 10/12/18at 08:12; Admin Dose 25 MG; Start 08/23/18 at 21:00 Ondansetron HCl (Zofran Inj) 4 mg Q6H PRN IV NAUSEA AND/OR VOMITING Last administered on 08/25/18at 21:47; Admin Dose 4 MG; Start 08/25/18 at 21:30 Heparin Sodium (Porcine) (Heparin (5000 Units/1ml)) 5,000 unit Q8 SC Last administered on 09/01/18at 14:27; Admin Dose 5,000 UNIT; Start 08/29/18 at 14:00; Status Hold Aspirin (Aspirin) 81 mg DAILY PO Last administered on 09/03/18at 08:37; Admin Dose 81 MG; Start 08/30/18 at 09:00; Status Hold Pantoprazole (Protonix Tab) 40 mg DAILY@06 PO Last administered on 10/12/18at 05:44; Admin Dose 40 MG; Start 09/19/18 at 06:00 Tramadol HCl (Ultram) 50 mg Q6H PRN PO MODERATE PAIN LEVEL 4-6 Last admini stered on 09/29/18at 07:36; Admin Dose 50 MG; Start 09/23/18 at 15:00 YUMIKO JC MD Oct 12, 2018 11:41
[2018-10-12 14:22] VITALS: BP 103/70; PULSE 84; RESP 18
[2018-10-12 20:00] VITALS: BP 106/68; PULSE 93; RESP 16
[2018-10-13 02:00] VITALS: BP 108/69; PULSE 84; RESP 16
[2018-10-13] MEDS: PANTOPRAZOLE (EC) 40 MG TAB PO SCH (06:02)
[2018-10-13 07:25] VITALS: BP 112/75; PULSE 90; RESP 20
[2018-10-13] MEDS: METOPROLOL 25 MG TAB PO SCH ×2 (09:58→20:31)
[2018-10-13 14:00] VITALS: BP 128/59; PULSE 73; RESP 18
--- NOTE | 2018-10-13 14:17 | PN ---
Date/Time of Note Date/Time of Note DATE: 10/13/18 TIME: 14:09 Assessment/Plan VTE Prophylaxis Risk score (from Ns)>0 risk: 1 SCD applied (from Ns): Yes Pharmacological prophylaxis: NA/contraindicated Pharm contraindication: low risk/ambulating Lines/Catheters IV Catheter Type (from Nrs): Peripheral IV Urinary Cath still in place: No Assessment/Plan Hospital Course 33 yo man brought in found down with subsequent JULIAN secondary to rhabdomyolysis; positive for alcohol, methamphetamine, cannabis, opioids as well. #Encephalopathy and Polyneuropathy- Despite extubation on 08/24, he remains lethargic and weak.- Head CT 08/20 negative- Repeat CT on 08/31 shows some edema of the basal ganglia, confirmed on MRI, this likely represents residual toxic metabolic effect - TSH, ammonia, AM cortisol are normal. CK has normalized-also there is associated with proximal muscle weakness but intact sensation-MRI C spine was most notable for signal changes within the paraspinal musculature of C3-C4 through C5-C6... which is likely a sequelae of rhabdomyolysis. - Reorient as needed - Continue physical therapy and occupational therapy # Renal failure- resolved now as BUN and creatinine levels are back to normal, patient has adequate urine output- Oliguric renal failure with hyperkalemia (after potassium replacement), also presented with severe metabolic acidosis- Likely due to a combination of rhabdo and drug use. #Hematochezia- resolved- Nurse reported maroon colored stool on 09/01- EGD 09/02 only with mild gastritis and distal esophagitis- MD witnessed maroon colored, grainy stool on 09/03. Rectal exam negative for external hemorrhoids or palpable internal hemorrhoids. Colonoscopy showed solitary rectal ulcer syndrome, bleeding likely from the rectal ulcer. -Continue Protonix daily for regular ulcer PPx. #Bacteremia- Had fever on 08/27 - Blood culture (x1 unfortunately) from that day is growing coag negative staph, a common contaminant. Repeat blood culture negative.- D/Matias right IJ. But his femoral dialysis catheter may also be a source of infection -wound culture from the groin area where the dialysis catheter was grew positive Pseudomonas, Enterobacter, and VRE. Status post treatment with antibiotics for this infection. Tip of Saurabh catheter culture was positive for Rosa on September 09, 2018. # acute respiratory failure- resolved, now on room air - extubated 08/24, was likely secondary to polysubstance overdose resulting in multiorgan dysfunction; patient had subsequent severe metabolic acidosis with inadequate respiratory compensation-now oxygen levels stable - s/p antibiotic treatment for CAP earlier this admission # Elevated troponin-now appears stable- Likely demand ischemia from drug use. Will not treat per NSTEMI protocol. # transaminitis: -resolved -May be from shock liver or drug use.- Hep B, Hep C negative. LFTs have trended down. -Monitor for now # Rhabdomyolysis -occurred earlier this admission, patient required ICU care at that time, now resolved # Coagulopathy- Resolved. # polysubstance abuse - Again patient was found to be positive for opioids, methamphetamine, marijuana and an elevated blood alcohol level. -Earlier this admission ordered for thiamine 300 mg IM daily times 3 days, further treatment as per the clinical course # DVT and GI prophylaxis: Protonix twice daily Dispo: Patient's neuromuscular recovery appears to have plateaued. He's unlikely to significantly advance in ARU. At this time, SNF evaluation may be better. Subjective 24 Hr Interval Summary Free Text/Dictation No acute overnight events. Patient has no complaints. Exam/Review of Systems Exam Vitals Vital Signs Date Temp Pulse Resp B/P (MAP) Pulse Ox O2 O2 Flow FiO2 Time Delivery Rate 10/13/18 98.3 90 20 112/75 100 Room Air 07:25 (87) Intake and Output 10/12/18 10/12/18 10/13/18 1515:00 23:00 07:00 IntakeIntake Total 1080 ml 720 ml 120 ml OutputOutput Total 1 ml 500 ml BalanceBalance 1079 ml 720 ml -380 ml Exam Gen: Sitting in chair, awake and alert HEENT: PERRL, moist mucous membranes, Card: Regular rate and rhythm no murmurs Pulm: CTA bilaterally, no crackles. Abd: Soft, nondistended Ext: No cyanosis/clubbing/edema Medications Medication Current Medications Metoprolol Tartrate (Lopressor) 25 mg BID PO Last administered on 10/13/18at 09:58; Admin Dose 25 MG; Start 08/23/18 at 21:00 Ondansetron HCl (Zofran Inj) 4 mg Q6H PRN IV NAUSEA AND/OR VOMITING Last administered on 08/25/18at 21:47; Admin Dose 4 MG; Start 08/25/18 at 21:30 Heparin Sodium (Porcine) (Heparin (5000 Units/1ml)) 5,000 unit Q8 SC Last administered on 09/01/18at 14:27; Admin Dose 5,000 UNIT; Start 08/29/18 at 14:00; Status Hold Aspirin (Aspirin) 81 mg DAILY PO Last administered on 09/03/18at 08:37; Admin Dose 81 MG; Start 08/30/18 at 09:00; Status Hold Pantoprazole (Protonix Tab) 40 mg DAILY@06 PO Last administered on 10/13/18at 06:02; Admin Dose 40 MG; Start 09/19/18 at 06:00 Tramadol HCl (Ultram) 50 mg Q6H PRN PO MODERATE PAIN LEVEL 4-6 Last administered on 09/29/18at 07:36; Admin Dose 50 MG; Start 09/23/18 at 15:00 YUMIKO JC MD Oct 13, 2018 14:17
--- NOTE | 2018-10-13 16:25 | CONS ---
Assessment/Plan Assessment/Plan Hospital Course (Demo Recall) S/P Respiratory failure status post extubation Low normal left ventricular ejection fraction 50% Sepsis S/P Acute kidney injury, was on hemodialysis Elevated troponin, type II myocardial infarction Encephalopathy GI bleed Liver dysfunction Illicit drug use -Off aspirin secondary to GI bleed. -Continue beta-kishan as tolerated. -No new cardiac orders at the current time Consultation Date/Type/Reason Admit Date/Time Aug 20, 2018 at 21:39 Initial Consult Date 08/21/18 Type of Consult Cardiology Requesting Provider: YUMIKO JC MD Date/Time of Note DATE: 10/13/18 TIME: 16:24 24 HR Interval Summary Free Text/Dictation Denies chest pain, shortness of breath Exam/Review of Systems Vital Signs Vitals Vital Signs Date Temp Pulse Resp B/P (MAP) Pulse Ox O2 O2 Flow FiO2 Time Delivery Rate 10/13/18 98.0 73 18 128/59 100 Room Air 14:00 (82) Intake and Output 10/12/18 10/12/18 10/13/18 1515:00 23:00 07:00 IntakeIntake Total 1080 ml 720 ml 120 ml OutputOutput Total 1 ml 500 ml BalanceBalance 1079 ml 720 ml -380 ml Exam Exam Undergoing physical therapy, no apparent distress Constitutional: alert Head: normocephalic Respiratory: clear to auscultation, normal air movement Cardiovascular: regular rate and rhythm (S1-S2 heard) Gastrointestinal: soft, non-tender, bowel sounds Extremities: other (No significant edema) Medications Medications Current Medications Metoprolol Tartrate (Lopressor) 25 mg BID PO Last administered on 10/13/18at 09:58; Admin Dose 25 MG; Start 08/23/18 at 21:00 Ondansetron HCl (Zofran Inj) 4 mg Q6H PRN IV NAUSEA AND/OR VOMITING Last administered on 08/25/18at 21:47; Admin Dose 4 MG; Start 08/25/18 at 21:30 Heparin Sodium (Porcine) (Heparin (5000 Units/1ml)) 5,000 unit Q8 SC Last administered on 09/01/18at 14:27; Admin Dose 5,000 UNIT; Start 08/29/18 at 14:00; Status Hold Aspirin (Aspirin) 81 mg DAILY PO Last administered on 09/03/18at 08:37; Admin Dose 81 MG; Start 08/30/18 at 09:00; Status Hold Pantoprazole (Protonix Tab) 40 mg DAILY@06 PO Last administered on 10/13/18at 06:02; Admin Dose 40 MG; Start 09/19/18 at 06:00 Tramadol HCl (Ultram) 50 mg Q6H PRN PO MODERATE PAIN LEVEL 4-6 Last administered on 09/29/18at 07:36; Admin Dose 50 MG; Start 09/23/18 at 15:00 Kana Phoenix DO Oct 13, 2018 16:25
[2018-10-13 20:00] VITALS: BP 103/62; PULSE 86; RESP 16
[2018-10-14 02:00] VITALS: BP 122/81; PULSE 83; RESP 18
[2018-10-14] MEDS: PANTOPRAZOLE (EC) 40 MG TAB PO SCH (06:05)
[2018-10-14 07:48] VITALS: BP 100/72; PULSE 77; RESP 18
[2018-10-14] MEDS: METOPROLOL 25 MG TAB PO SCH ×2 (09:00→21:00)
[2018-10-14] MEDS ORDERED: POTASSIUM CHLORIDE 20 MEQ POWDER FOR ORAL SOLN PO ONE (12:00)
[2018-10-14] MEDS ORDERED: MAGNESIUM SULFATE 2 GM/50 ML 50 ML IVPB ONE (13:00)
--- NOTE | 2018-10-14 13:12 | CONS ---
Assessment/Plan Assessment/Plan Hospital Course (Demo Recall) S/P Respiratory failure status post extubation Low normal left ventricular ejection fraction 50% Sepsis S/P Acute kidney injury, was on hemodialysis Elevated troponin, type II myocardial infarction Encephalopathy GI bleed Liver dysfunction Illicit drug use -Off aspirin secondary to GI bleed. -Continue beta-kishan as tolerated. -No new cardiac orders at the current time Consultation Date/Type/Reason Admit Date/Time Aug 20, 2018 at 21:39 Initial Consult Date 08/21/18 Type of Consult Cardiology Requesting Provider: YUMIKO JC MD Date/Time of Note DATE: 10/14/18 TIME: 13:11 24 HR Interval Summary Free Text/Dictation no cp, palp, sob Exam/Review of Systems Vital Signs Vitals Vital Signs Date Temp Pulse Resp B/P (MAP) Pulse Ox O2 O2 Flow FiO2 Time Delivery Rate 10/14/18 97.1 77 18 100/72 100 07:48 (81) 10/13/18 Room Air 14:00 Intake and Output 10/13/18 10/13/18 10/14/18 1515:00 23:00 07:00 IntakeIntake Total 580 ml 360 ml BalanceBalance 580 ml 360 ml Exam Exam nad Constitutional: alert Respiratory: clear to auscultation, normal air movement Cardiovascular: regular rate and rhythm (s1s2) Gastrointestinal: soft, non-tender, bowel sounds Extremities: edema (no) Labs Result Diagram: 10/14/18 1020 10/14/18 1020 Results 24hrs Laboratory Tests Test 10/14/18 10:20 White Blood Count 5.9 # Red Blood Count 4.78 Hemoglobin 14.4 Hematocrit 42.5 Mean Corpuscular Volume 88.9 Mean Corpuscular Hemoglobin 30.1 Mean Corpuscular Hemoglobin Concent 33.9 Red Cell Distribution Width 13.0 Platelet Count 381 Mean Platelet Volume 10.4 Immature Granulocytes % 0.200 Neutrophils % 56.1 Lymphocytes % 31.4 Monocytes % 7.1 Eosinophils % 4.2 Basophils % 1.0 Nucleated Red Blood Cells % 0.0 Immature Granulocytes # 0.010 Neutrophils # 3.3 Lymphocytes # 1.9 Monocytes # 0.4 Eosinophils # 0.3 Basophils # 0.1 Nucleated Red Blood Cells # 0.0 Sodium Level 140 Potassium Level 3.2 L Chloride Level 100 Carbon Dioxide Level 27 Anion Gap 13 Blood Urea Nitrogen 16 Creatinine 0.58 L Est Glomerular Filtrat Rate mL/min > 60 Glucose Level 124 Calcium Level 10.4 H Phosphorus Level 4.4 Magnesium Level 1.6 L Medications Medications Current Medications Metoprolol Tartrate (Lopressor) 25 mg BID PO Last administered on 10/13/18 09:58; Admin Dose 25 MG; Start 08/23/18 at 21:00 Ondansetron HCl (Zofran Inj) 4 mg Q6H PRN IV NAUSEA AND/OR VOMITING Last administered on 08/25/18at 21:47; Admin Dose 4 MG; Start 08/25/18 at 21:30 Heparin Sodium (Porcine) (Heparin (5000 Units/1ml)) 5,000 unit Q8 SC Last administered on 09/01/18 14:27; Admin Dose 5,000 UNIT; Start 08/29/18 at 14:00; Status Hold Aspirin (Aspirin) 81 mg DAILY PO Last administered on 09/03/18at 08:37; Admin Dose 81 MG; Start 08/30/18 at 09:00; Status Hold Pantoprazole (Protonix Tab) 40 mg DAILY@06 PO Last administered on 10/14/18 06:05; Admin Dose 40 MG; Start 09/19/18 at 06:00 Tramadol HCl (Ultram) 50 mg Q6H PRN PO MODERATE PAIN LEVEL 4-6 Last administered on 09/29/18 07:36; Admin Dose 50 MG; Start 09/23/18 at 15:00 Magnesium Sulfate 50 ml @ 25 mls/hr ONCE ONCE IVPB ; Start 10/14/18 at 13:00; Stop 10/14/18 at 14:59 Kana Phoenix DO Oct 14, 2018 13:12
--- NOTE | 2018-10-14 14:49 | PN ---
Date/Time of Note Date/Time of Note DATE: 10/14/18 TIME: 14:48 Assessment/Plan VTE Prophylaxis Risk score (from Ns)>0 risk: 1 SCD applied (from Ns): Yes Pharmacological prophylaxis: NA/contraindicated Pharm contraindication: low risk/ambulating Lines/Catheters IV Catheter Type (from Nrsg): Peripheral IV Urinary Cath still in place: No Assessment/Plan Hospital Course 33 yo man brought in found down with subsequent JULIAN secondary to rhabdomyolysis; positive for alcohol, methamphetamine, cannabis, opioids as well. #Encephalopathy and Polyneuropathy- Despite extubation on 08/24, he remains lethargic and weak.- Head CT 08/20 negative- Repeat CT on 08/31 shows some edema of the basal ganglia, confirmed on MRI, this likely represents residual toxic metabolic effect - TSH, ammonia, AM cortisol are normal. CK has normalized-also there is associated with proximal muscle weakness but intact sensation-MRI C spine was most notable for signal changes within the paraspinal musculature of C3-C4 through C5-C6... which is likely a sequelae of rhabdomyolysis. - Reorient as needed - Continue physical therapy and occupational therapy # Renal failure- resolved now as BUN and creatinine levels are back to normal, patient has adequate urine output- Oliguric renal failure with hyperkalemia (after potassium replacement), also presented with severe metabolic acidosis- Likely due to a combination of rhabdo and drug use. #Hematochezia- resolved- Nurse reported maroon colored stool on 09/01- EGD 09/02 only with mild gastritis and distal esophagitis- MD witnessed maroon colored, grainy stool on 09/03. Rectal exam negative for external hemorrhoids or palpable internal hemorrhoids. Colonoscopy showed solitary rectal ulcer syndrome, bleeding likely from the rectal ulcer. -Continue Protonix daily for regular ulcer PPx. #Bacteremia- Had fever on 08/27 - Blood culture (x1 unfortunately) from that day is growing coag negative staph, a common contaminant. Repeat blood culture negative.- D/Matias right IJ. But his femoral dialysis catheter may also be a source of infection -wound culture from the groin area where the dialysis catheter was grew positive Pseudomonas, Enterobacter, and VRE. Status post treatment with antibiotics for this infection. Tip of Saurabh catheter culture was positive for Rosa on September 09, 2018. # acute respiratory failure- resolved, now on room air - extubated 08/24, was li sheldon secondary to polysubstance overdose resulting in multiorgan dysfunction; patient had subsequent severe metabolic acidosis with inadequate respiratory compensation-now oxygen levels stable - s/p antibiotic treatment for CAP earlier this admission # Elevated troponin-now appears stable- Likely demand ischemia from drug use. Will not treat per NSTEMI protocol. # transaminitis: -resolved -May be from shock liver or drug use.- Hep B, Hep C negative. LFTs have trended down. -Monitor for now # Rhabdomyolysis -occurred earlier this admission, patient required ICU care at that time, now resolved # Coagulopathy- Resolved. # polysubstance abuse - Again patient was found to be positive for opioids, methamphetamine, marijuana and an elevated blood alcohol level. -Earlier this admission ordered for thiamine 300 mg IM daily times 3 days, further treatment as per the clinical course # DVT and GI prophylaxis: Protonix twice daily Dispo: Patient's neuromuscular recovery appears to have plateaued. He's unlikely to significantly advance in ARU. At this time, SNF evaluation may be better. Result Diagram: 10/14/18 1020 10/14/18 1020 Subjective 24 Hr Interval Summary Free Text/Dictation No acute overnight events. Patient sleeping comfortably. Exam/Review of Systems Exam Vitals Vital Signs Date Temp Pulse Resp B/P (MAP) Pulse Ox O2 O2 Flow FiO2 Time Delivery Rate 10/14/18 97.1 77 18 100/72 100 07:48 (81) 10/13/18 Room Air 14:00 Intake and Output 10/13/18 10/13/18 10/14/18 1414:59 22:59 06:59 IntakeIntake Total 580 ml 360 ml BalanceBalance 580 ml 360 ml Exam Gen: Lying in bed sleeping. HEENT: PERRL, moist mucous membranes, Card: Regular rate and rhythm no murmurs Pulm: CTA bilaterally, no crackles. Abd: Soft, nondistended Ext: No cyanosis/clubbing/edema Medications Medication Current Medications Metoprolol Tartrate (Lopressor) 25 mg BID PO Last administered on 10/13/18at 09:58; Admin Dose 25 MG; Start 08/23/18 at 21:00 Ondansetron HCl (Zofran Inj) 4 mg Q6H PRN IV NAUSEA AND/OR VOMITING Last administered on 08/25/18at 21:47; Admin Dose 4 MG; Start 08/25/18 at 21:30 Heparin Sodium (Porcine) (Heparin (5000 Units/1ml)) 5,000 unit Q8 SC Last administered on 09/01/18 14:27; Admin Dose 5,000 UNIT; Start 08/29/18 at 14:00; Status Hold Aspirin (Aspirin) 81 mg DAILY PO Last administered on 09/03/18 08:37; Admin Dose 81 MG; Start 08/30/18 at 09:00; Status Hold Pantoprazole (Protonix Tab) 40 mg DAILY@06 PO Last administered on 10/14/18 06:05; Admin Dose 40 MG; Start 09/19/18 at 06:00 Tramadol HCl (Ultram) 50 mg Q6H PRN PO MODERATE PAIN LEVEL 4-6 Last administered on 09/29/18at 07:36; Admin Dose 50 MG; Start 09/23/18 at 15:00 Magnesium Sulfate 50 ml @ 25 mls/hr ONCE ONCE IVPB Last administered on 10/14 14:14; Admin Dose 25 MLS/HR; Start 10/14/18 at 13:00; Stop 10/14/18 at 14:59 YUMIKO JC MD Oct 14, 2018 14:49
[2018-10-14 15:02] VITALS: BP 102/64; PULSE 96; RESP 18
[2018-10-14] MEDS: traMADol 50 MG TAB PO PRN (19:39)
[2018-10-14 19:50] VITALS: BP 103/69; PULSE 106; RESP 16
[2018-10-14 21:00] VITALS: BP 106/68; PULSE 91
[2018-10-15 01:26] VITALS: BP 122/73; PULSE 72; RESP 16
[2018-10-15] MEDS: PANTOPRAZOLE (EC) 40 MG TAB PO SCH (06:02)
[2018-10-15 07:32] VITALS: BP 115/77; PULSE 82; RESP 18
[2018-10-15] MEDS: METOPROLOL 25 MG TAB PO SCH ×2 (08:23→21:00)
[2018-10-15] MEDS: traMADol 50 MG TAB PO PRN (12:00)
[2018-10-15 13:28] VITALS: BP 107/68; PULSE 71; RESP 18
--- NOTE | 2018-10-15 13:52 | PN ---
Date/Time of Note Date/Time of Note DATE: 10/15/18 TIME: 13:51 Assessment/Plan VTE Prophylaxis Risk score (from Ns)>0 risk: 1 SCD applied (from Ns): Yes Pharmacological prophylaxis: NA/contraindicated Pharm contraindication: low risk/ambulating Lines/Catheters IV Catheter Type (from Nrs): Saline Lock Urinary Cath still in place: No Assessment/Plan Hospital Course 33 yo man brought in found down with subsequent JULIAN secondary to rhabdomyolysis; positive for alcohol, methamphetamine, cannabis, opioids as well. #Encephalopathy and Polyneuropathy- Despite extubation on 08/24, he remains lethargic and weak.- Head CT 08/20 negative- Repeat CT on 08/31 shows some edema of the basal ganglia, confirmed on MRI, this likely represents residual toxic metabolic effect - TSH, ammonia, AM cortisol are normal. CK has normalized-also there is associated with proximal muscle weakness but intact sensation-MRI C spine was most notable for signal changes within the paraspinal musculature of C3-C4 through C5-C6... which is likely a sequelae of rhabdomyolysis. - Reorient as needed - Continue physical therapy and occupational therapy # Renal failure- resolved now as BUN and creatinine levels are back to normal, patient has adequate urine output- Oliguric renal failure with hyperkalemia (after potassium replacement), also presented with severe metabolic acidosis- Likely due to a combination of rhabdo and drug use. #Hematochezia- resolved- Nurse reported maroon colored stool on 09/01- EGD 09/02 only with mild gastritis and distal esophagitis- MD witnessed maroon colored, grainy stool on 09/03. Rectal exam negative for external hemorrhoids or palpable internal hemorrhoids. Colonoscopy showed solitary rectal ulcer syndrome, bleeding likely from the rectal ulcer. -Continue Protonix daily for regular ulcer PPx. #Bacteremia- Had fever on 08/27 - Blood culture (x1 unfortunately) from that day is growing coag negative staph, a common contaminant. Repeat blood culture negative.- D/Matias right IJ. But his femoral dialysis catheter may also be a source of infection -wound culture from the groin area where the dialysis catheter was grew positive Pseudomonas, Enterobacter, and VRE. Status post treatment with antibiotics for this infection. Tip of Saurabh catheter culture was positive for Rosa on September 09, 2018. # acute respiratory failure- resolved, now on room air - extubated 08/24, was likely secondary to polysubstance overdose resulting in multiorgan dysfunction; patient had subsequent severe metabolic acidosis with inadequate respiratory compensation-now oxygen levels stable - s/p antibiotic treatment for CAP earlier this admission # Elevated troponin-now appears stable- Likely demand ischemia from drug use. Will not treat per NSTEMI protocol. # transaminitis: -resolved -May be from shock liver or drug use.- Hep B, Hep C negative. LFTs have trended down. -Monitor for now # Rhabdomyolysis -occurred earlier this admission, patient required ICU care at that time, now resolved # Coagulopathy- Resolved. # polysubstance abuse - Again patient was found to be positive for opioids, methamphetamine, marijuana and an elevated blood alcohol level. -Earlier this admission ordered for thiamine 300 mg IM daily times 3 days, further treatment as per the clinical course # DVT and GI prophylaxis: Protonix twice daily Dispo: Patient's neuromuscular recovery appears to have plateaued. He's unlikely to significantly advance in ARU. At this time, SNF evaluation may be better. Result Diagram: 10/14/18 1020 10/15/18 0929 Results 24hrs Laboratory Tests Test 10/15/18 09:29 Sodium Level 140 Potassium Level 3.3 L Chloride Level 104 Carbon Dioxide Level 25 Anion Gap 11 Blood Urea Nitrogen 15 Creatinine 0.52 L Est Glomerular Filtrat Rate mL/min > 60 Glucose Level 112 Calcium Level 10.2 Subjective 24 Hr Interval Summary Free Text/Dictation No acute overnight events. Exam/Review of Systems Exam Vitals Vital Signs Date Temp Pulse Resp B/P (MAP) Pulse Ox O2 O2 Flow FiO2 Time Delivery Rate 10/15/18 98.3 71 18 107/68 99 Room Air 13:28 (81) Intake and Output 10/14/18 10/14/18 10/15/18 1515:00 23:00 07:00 IntakeIntake Total 770 ml 840 ml OutputOutput Total 275 ml 300 ml 150 ml BalanceBalance -275 ml 470 ml 690 ml Exam Gen: Lying in bed sleeping. HEENT: PERRL, moist mucous membranes, Card: Regular rate and rhythm no murmurs Pulm: CTA bilaterally, no crackles. Abd: Soft, nondistended Ext: No cyanosis/clubbing/edema Results Results 24hrs Laboratory Tests Test 10/15/18 09:29 Sodium Level 140 Potassium Level 3.3 L Chloride Level 104 Carbon Dioxide Level 25 Anion Gap 11 Blood Urea Nitrogen 15 Creatinine 0.52 L Est Glomerular Filtrat Rate mL/min > 60 Glucose Level 112 Calcium Level 10.2 Medications Medication Current Medications Metoprolol Tartrate (Lopressor) 25 mg BID PO Last administered on 10/15/18 08:23; Admin Dose 25 MG; Start 08/23/18 at 21:00 Ondansetron HCl (Zofran Inj) 4 mg Q6H PRN IV NAUSEA AND/OR VOMITING Last administered on 08/25/18at 21:47; Admin Dose 4 MG; Start 08/25/18 at 21:30 Heparin Sodium (Porcine) (Heparin (5000 Units/1ml)) 5,000 unit Q8 SC Last administered on 09/01/18 14:27; Admin Dose 5,000 UNIT; Start 08/29/18 at 14:00; Status Hold Aspirin (Aspirin) 81 mg DAILY PO Last administered on 09/03/18 08:37; Admin Dose 81 MG; Start 08/30/18 at 09:00; Status Hold Pantoprazole (Protonix Tab) 40 mg DAILY@06 PO Last administered on 10/15/18 06:02; Admin Dose 40 MG; Start 09/19/18 at 06:00 Tramadol HCl (Ultram) 50 mg Q6H PRN PO MODERATE PAIN LEVEL 4-6 Last administered on 10/15/18 12:00; Admin Dose 50 MG; Start 09/23/18 at 15:00 YUMIKO JC MD Oct 15, 2018 13:52
[2018-10-15 19:50] VITALS: BP 100/70; PULSE 71; RESP 18
[2018-10-15 21:10] VITALS: BP 105/76; PULSE 72
[2018-10-16 01:50] VITALS: BP 104/73; PULSE 80; RESP 18
[2018-10-16] MEDS: PANTOPRAZOLE (EC) 40 MG TAB PO SCH (05:59)
[2018-10-16 07:40] VITALS: BP 112/77; PULSE 75; RESP 18
[2018-10-16] MEDS: METOPROLOL 25 MG TAB PO SCH ×2 (08:25→21:56)
--- NOTE | 2018-10-16 13:33 | PN ---
Date/Time of Note Date/Time of Note DATE: 10/16/18 TIME: 13:30 Assessment/Plan VTE Prophylaxis Risk score (from Ns)>0 risk: 2 SCD applied (from Ns): Yes SCD contraindicated: low risk/ambulating Pharmacological prophylaxis: NA/contraindicated Pharm contraindication: low risk/ambulating Lines/Catheters IV Catheter [facility] (from [facility] Saline Lock Urinary Cath still in place: No Assessment/Plan Hospital Course 33 yo man brought in found down with subsequent JULIAN secondary to rhabdomyolysis; positive for alcohol, methamphetamine, cannabis, opioids as well. #Encephalopathy and Polyneuropathy- Despite extubation on 08/24, he remains lethargic and weak.- Head CT 08/20 negative- Repeat CT on 08/31 shows some edema of the basal ganglia, confirmed on MRI, this likely represents residual toxic metabolic effect - TSH, ammonia, AM cortisol are normal. CK has normalized-also there is associated with proximal muscle weakness but intact sensation-MRI C spine was most notable for signal changes within the paraspinal musculature of C3-C4 through C5-C6... which is likely a sequelae of rhabdomyolysis. - Continue physical therapy and occupational therapy # Renal failure- resolved now - Oliguric renal failure with hyperkalemia (after potassium replacement), also presented with severe metabolic acidosis - Likely due to a combination of rhabdo and drug use. #Hematochezia- resolved- Nurse reported maroon colored stool on 09/01- EGD 09/02 only with mild gastritis and distal esophagitis- MD witnessed maroon colored, grainy stool on 09/03. Rectal exam negative for external hemorrhoids or palpable internal hemorrhoids. Colonoscopy showed solitary rectal ulcer syndrome, bleeding likely from the rectal ulcer. -Continue Protonix daily for regular ulcer PPx. #Bacteremia- Had fever on 08/27 - Blood culture (x1 unfortunately) from that day is growing coag negative staph, a common contaminant. Repeat blood culture negative.- D/Matias right IJ. But his femoral dialysis catheter may also be a source of infection -wound culture from the groin area where the dialysis catheter was grew positive Pseudomonas, Enterobacter, and VRE. Status post treatment with antibiotics for this infection. Tip of Saurabh catheter culture was positive for Rosa on September 09, 2018. # acute respiratory failure- resolved, now on room air - extubated 08/24, was likely secondary to polysubstance overdose resulting in multiorgan dysfunction; patient had subsequent severe metabolic acidosis with inadequate respiratory compensation-now oxygen levels stable - s/p antibiotic treatment for CAP earlier this admission # Elevated troponin-now appears stable- Likely demand ischemia from drug use. Will not treat per NSTEMI protocol. # transaminitis: -resolved -May be from shock liver or drug use.- Hep B, Hep C negative. LFTs have trended down. -Monitor for now # Rhabdomyolysis -occurred earlier this admission, patient required ICU care at that time, now resolved # Coagulopathy- Resolved. # polysubstance abuse - Again patient was found to be positive for opioids, methamphetamine, marijuana and an elevated blood alcohol level. # DVT and GI prophylaxis: Protonix twice daily Dispo: Patient's neuromuscular recovery appears to have plateaued. He's unlikely to significantly advance in ARU. At this time, SNF evaluation may be better. Result Diagram: 10/14/18 1020 10/15/18 0929 Results 24hrs Laboratory Tests Test 10/16/18 08:03 Bedside Glucose 108 Subjective 24 Hr Interval Summary Free Text/Dictation Patient has been working with physical therapy on wheelchair mobility, seems to be handling transfers well. Today his uncle was at bedside. He did confirm the patient has always had some mental slowing. I updated him on the patient's status. Explained that he could be discharged if he has family to care for him. Uncle said "no it's better if he stays here". Exam/Review of Systems Exam Vitals Vital Signs Date Temp Pulse Resp B/P (MAP) Pulse Ox O2 O2 Flow FiO2 Time Delivery Rate 10/16/18 98.3 75 18 112/77 98 Room Air 07:40 (89) Intake and Output 10/15/18 10/15/18 10/16/18 1515:00 23:00 07:00 IntakeIntake Total 720 ml 360 ml BalanceBalance 720 ml 360 ml Exam Gen: Sitting up in chair, awake, responsive. HEENT: PERRL, moist mucous membranes, Card: Regular rate and rhythm no murmurs Pulm: CTA bilaterally, no crackles. Abd: Soft, nondistended Ext: No cyanosis/clubbing/edema Results Results 24hrs Laboratory Tests Test 10/16/18 08:03 Bedside Glucose 108 Medications Medication Current Medications Metoprolol Tartrate (Lopressor) 25 mg BID PO Last administered on 2/10/19at 08:25; Admin Dose 25 MG; Start 08/23/18 at 21:00 Ondansetron HCl (Zofran Inj) 4 mg Q6H PRN IV NAUSEA AND/OR VOMITING Last administered on 08/25/18at 21:47; Admin Dose 4 MG; Start 08/25/18 at 21:30 Heparin Sodium (Porcine) (Heparin (5000 Units/1ml)) 5,000 unit Q8 SC Last administered on 09/01/18 14:27; Admin Dose 5,000 UNIT; Start 08/29/18 at 14:00; Status Hold Aspirin (Aspirin) 81 mg DAILY PO Last administered on 09/03/18 08:37; Admin Dose 81 MG; Start 08/30/18 at 09:00; Status Hold Pantoprazole (Protonix Tab) 40 mg DAILY@06 PO Last administered on 10/16/18 05:59; Admin Dose 40 MG; Start 09/19/18 at 06:00 Tramadol HCl (Ultram) 50 mg Q6H PRN PO MODERATE PAIN LEVEL 4-6 Last administered on 10/15/18 12:00; Admin Dose 50 MG; Start 09/23/18 at 15:00 YUMIKO JC MD Oct 16, 2018 13:33
[2018-10-16 14:22] VITALS: BP 101/66; PULSE 78; RESP 18
[2018-10-16 19:53] VITALS: BP 101/63; PULSE 96; RESP 18
[2018-10-17 01:18] VITALS: BP 95/65; PULSE 75; RESP 18
[2018-10-17] MEDS: PANTOPRAZOLE (EC) 40 MG TAB PO SCH (06:02)
[2018-10-17 07:30] VITALS: BP 114/76; PULSE 72; RESP 20
[2018-10-17] MEDS: METOPROLOL 25 MG TAB PO SCH ×2 (08:50→21:42)
--- NOTE | 2018-10-17 11:38 | PN ---
Date/Time of Note Date/Time of Note DATE: 10/17/18 TIME: 11:34 Assessment/Plan VTE Prophylaxis Risk score (from Nsg)>0 risk: 1 SCD applied (from Nsg): Yes Pharmacological prophylaxis: other Lines/Catheters IV Catheter Type (from Nrsg): Saline Lock Urinary Cath still in place: No Assessment/Plan Hospital Course S: No acute events overnight. O: VS - see below PE: Gen: Sitting up in chair, awake, responsive. HEENT: PERRL, moist mucous membranes, Card: Regular rate and rhythm no murmurs Pulm: CTA bilaterally, no crackles. Abd: Soft, nondistended Ext: No cyanosis/clubbing/edema A/P: 33 yo man brought in found down with subsequent JULIAN secondary to rhabdomyolysis; positive for alcohol, methamphetamine, cannabis, opioids as well. #Encephalopathy and Polyneuropathy- Despite extubation on 08/24, he remains lethargic and weak.- Head CT 08/20 negative- Repeat CT on 08/31 shows some edema of the basal ganglia, confirmed on MRI, this likely represents residual toxic metabolic effect - TSH, ammonia, AM cortisol are normal. CK has normalized-also there is associated with proximal muscle weakness but intact sensation-MRI C spine was most notable for signal changes within the paraspinal musculature of C3-C4 through C5-C6... which is likely a sequelae of rhabdomyolysis. - Continue physical therapy and occupational therapy # Renal failure- resolved now - Oliguric renal failure with hyperkalemia (after potassium replacement), also presented with severe metabolic acidosis- Likely due to a combination of rhabdo and drug use. -Monitor #Hematochezia- resolved- Nurse reported maroon colored stool on 09/01- EGD 09/02 only with mild gastritis and distal esophagitis- MD witnessed maroon colored, grainy stool on 09/03. Rectal exam negative for external hemorrhoids or palpable internal hemorrhoids. Colonoscopy showed solitary rectal ulcer syndrome, bleeding likely from the rectal ulcer. -Continue Protonix daily for regular ulcer PPx. #Bacteremia- Had fever on 08/27 - Blood culture (x1 unfortunately) from that day is growing coag negative staph, a common contaminant. Repeat blood culture negative.- D/Matias right IJ. But his femoral dialysis catheter was thought to be a possible source of infection -wound culture from the groin area where the dialysis catheter was performed, grew positive Pseudomonas, Enterobacter, and VRE. Status post treatment with antibiotics for this infection. Tip of Saurabh catheter culture was positive for Rosa on September 09, 2018. -Resolved now, monitor # acute respiratory failure- resolved, now on room air - extubated 08/24, was likely secondary to polysubstance overdose resulting in multiorgan dysfunction; patient had subsequent severe metabolic acidosis with inadequate respiratory compensation-now oxygen levels stable - s/p antibiotic treatment for CAP earlier this admission. -Continue to monitor # Elevated troponin-now appears stable- Likely demand ischemia from drug use. -Monitor will not treat per NSTEMI protocol. # transaminitis: -resolved -May be from shock liver or drug use.- Hep B, Hep C negative. LFTs have trended down. -Monitor for now # Rhabdomyolysis -occurred earlier this admission, patient required ICU care at that time, now resolved -Monitor # Coagulopathy- Resolved. # polysubstance abuse - Again patient was found to be positive for opioids, methamphetamine, marijuana and an elevated blood alcohol level. # DVT and GI prophylaxis: Protonix twice daily Dispo: Patient's neuromuscular recovery appears to have plateaued. He's unlikely to significantly advance in ARU. At this time, SNF evaluation may be better. Result Diagram: 10/14/18 1020 10/15/18 0929 Exam/Review of Systems Exam Vitals Vital Signs Date Temp Pulse Resp B/P (MAP) Pulse Ox O2 O2 Flow FiO2 Time Delivery Rate 10/17/18 98.5 72 20 114/76 100 07:30 (89) 10/16/18 Room Air 14:22 Intake and Output 10/16/18 10/16/18 10/17/18 1515:00 23:00 07:00 IntakeIntake Total 840 ml 480 ml 120 ml BalanceBalance 840 ml 480 ml 120 ml Medications Medication Current Medications Metoprolol Tartrate (Lopressor) 25 mg BID PO Last administered on 10/17/18at 08:50; Admin Dose 25 MG; Start 08/23/18 at 21:00 Ondansetron HCl (Zofran Inj) 4 mg Q6H PRN IV NAUSEA AND/OR VOMITING Last administered on 08/25/18at 21:47; Admin Dose 4 MG; Start 08/25/18 at 21:30 Heparin Sodium (Porcine) (Heparin (5000 Units/1ml)) 5,000 unit Q8 SC Last administered on 09/01/18at 14:27; Admin Dose 5,000 UNIT; Start 08/29/18 at 14:00; Status Hold Aspirin (Aspirin) 81 mg DAILY PO Last administered on 09/03/18at 08:37; Admin Dose 81 MG; Start 08/30/18 at 09:00; Status Hold Pantoprazole (Protonix Tab) 40 mg DAILY@06 PO Last administered on 10/17/18at 06:02; Admin Dose 40 MG; Start 09/19/18 at 06:00 Tramadol HCl (Ultram) 50 mg Q6H PRN PO MODERATE PAIN LEVEL 4-6 Last administered on 10/15/18at 12:00; Admin Dose 50 MG; Start 09/23/18 at 15:00 CINTIA ESPINOSA Oct 17, 2018 11:38
--- NOTE | 2018-10-17 13:33 | CONS ---
Assessment/Plan Assessment/Plan Hospital Course (Demo Recall) S/P Respiratory failure status post extubation Low normal left ventricular ejection fraction 50% Sepsis S/P Acute kidney injury, was on hemodialysis Elevated troponin, type II myocardial infarction Encephalopathy GI bleed Liver dysfunction Illicit drug use -Off aspirin secondary to GI bleed. -Continue beta-kishan as tolerated. -No new cardiac orders at the current time Consultation Date/Type/Reason Admit Date/Time Aug 20, 2018 at 21:39 Initial Consult Date 08/21/18 Type of Consult Cardiology Requesting Provider: YUMIKO JC MD Date/Time of Note DATE: 10/17/18 TIME: 13:32 24 HR Interval Summary Free Text/Dictation Patient sleeping, seen and examined Exam/Review of Systems Vital Signs Vitals Vital Signs Date Temp Pulse Resp B/P (MAP) Pulse Ox O2 O2 Flow FiO2 Time Delivery Rate 10/17/18 98.5 72 20 114/76 100 07:30 (89) 10/16/18 Room Air 14:22 Intake and Output 10/16/18 10/16/18 10/17/18 1515:00 23:00 07:00 IntakeIntake Total 840 ml 480 ml 120 ml BalanceBalance 840 ml 480 ml 120 ml Exam Exam Sleeping in chair, no apparent distress Head: normocephalic Respiratory: clear to auscultation, normal air movement Cardiovascular: regular rate and rhythm (S1-S2 heard) Gastrointestinal: soft, non-tender, bowel sounds Extremities: other (No significant edema) Labs Result Diagram: 10/14/18 1020 10/15/18 0929 Medications Medications Current Medications Metoprolol Tartrate (Lopressor) 25 mg BID PO Last administered on 10/17/18at 08:50; Admin Dose 25 MG; Start 08/23/18 at 21:00 Ondansetron HCl (Zofran Inj) 4 mg Q6H PRN IV NAUSEA AND/OR VOMITING Last administered on 08/25/18at 21:47; Admin Dose 4 MG; Start 08/25/18 at 21:30 Heparin Sodium (Porcine) (Heparin (5000 Units/1ml)) 5,000 unit Q8 SC Last ad ministered on 09/01/18at 14:27; Admin Dose 5,000 UNIT; Start 08/29/18 at 14:00; Status Hold Aspirin (Aspirin) 81 mg DAILY PO Last administered on 09/03/18at 08:37; Admin Dose 81 MG; Start 08/30/18 at 09:00; Status Hold Pantoprazole (Protonix Tab) 40 mg DAILY@06 PO Last administered on 10/17/18at 06:02; Admin Dose 40 MG; Start 09/19/18 at 06:00 Tramadol HCl (Ultram) 50 mg Q6H PRN PO MODERATE PAIN LEVEL 4-6 Last administered on 10/15/18at 12:00; Admin Dose 50 MG; Start 09/23/18 at 15:00 Kana Phoenix DO Oct 17, 2018 13:33
[2018-10-17 14:00] VITALS: BP 95/65; PULSE 80; RESP 20
[2018-10-17 19:23] VITALS: BP 110/72; PULSE 88; RESP 18
[2018-10-18 00:55] VITALS: BP 157/68; PULSE 87; RESP 18
[2018-10-18 01:00] VITALS: BP 113/75; PULSE 77; RESP 18
[2018-10-18] MEDS: PANTOPRAZOLE (EC) 40 MG TAB PO SCH (06:18)
[2018-10-18 07:33] VITALS: BP 123/79; PULSE 88; RESP 20
[2018-10-18] MEDS: METOPROLOL 25 MG TAB PO SCH ×2 (08:39→21:22)
--- NOTE | 2018-10-18 11:48 | CONS ---
Assessment/Plan Assessment/Plan Hospital Course (Demo Recall) S/P Respiratory failure status post extubation Low normal left ventricular ejection fraction 50% Sepsis S/P Acute kidney injury, was on hemodialysis Elevated troponin, type II myocardial infarction Encephalopathy GI bleed Liver dysfunction Illicit drug use -Off aspirin secondary to GI bleed. -Continue beta-kishan as tolerated. -No new cardiac orders at the current time Consultation Date/Type/Reason Admit Date/Time Aug 20, 2018 at 21:39 Initial Consult Date 08/21/18 Type of Consult Cardiology Requesting Provider: YUMIKO JC MD Date/Time of Note DATE: 10/18/18 TIME: 11:47 24 HR Interval Summary Free Text/Dictation Denies shortness of breath, chest pain Exam/Review of Systems Vital Signs Vitals Vital Signs Date Temp Pulse Resp B/P (MAP) Pulse Ox O2 O2 Flow FiO2 Time Delivery Rate 10/18/18 97.9 88 20 123/79 97 07:33 (94) 10/16/18 Room Air 14:22 Intake and Output 10/17/18 10/17/18 10/18/18 1515:00 23:00 07:00 IntakeIntake Total 1480 ml 1170 ml 50 ml OutputOutput Total 1 ml BalanceBalance 1479 ml 1170 ml 50 ml Exam Constitutional: alert (No apparent distress) Head: normocephalic Respiratory: clear to auscultation, normal air movement Cardiovascular: regular rate and rhythm (S1-S2 heard) Gastrointestinal: soft, non-tender, bowel sounds Extremities: other (No significant edema) Labs Result Diagram: 10/18/18 0548 10/18/18 0548 Results 24hrs Laboratory Tests Test 10/18/18 05:48 White Blood Count 6.3 Red Blood Count 4.53 L Hemoglobin 13.7 L Hematocrit 39.7 L Mean Corpuscular Volume 87.6 Mean Corpuscular Hemoglobin 30.2 Mean Corpuscular Hemoglobin Concent 34.5 Red Cell Distribution Width 13.0 Platelet Count 319 Mean Platelet Volume 9.9 Immature Granulocytes % 0.200 Neutrophils % 49.2 Lymphocytes % 38.7 Monocytes % 5.9 Eosinophils % 5.4 Basophils % 0.6 Nucleated Red Blood Cells % 0.0 Immature Granulocytes # 0.010 Neutrophils # 3.1 Lymphocytes # 2.4 Monocytes # 0.4 Eosinophils # 0.3 Basophils # 0.0 Nucleated Red Blood Cells # 0.0 Sodium Level 142 Potassium Level 3.2 L Chloride Level 104 Carbon Dioxide Level 27 Anion Gap 11 Blood Urea Nitrogen 15 Creatinine 0.50 L Est Glomerular Filtrat Rate mL/min > 60 Glucose Level 113 Calcium Level 10.2 Phosphorus Level 4.3 Magnesium Level 1.7 Medications Medications Current Medications Metoprolol Tartrate (Lopressor) 25 mg BID PO Last administered on 10/18/18 08:39; Admin Dose 25 MG; Start 08/23/18 at 21:00 Ondansetron HCl (Zofran Inj) 4 mg Q6H PRN IV NAUSEA AND/OR VOMITING Last administered on 08/25/18at 21:47; Admin Dose 4 MG; Start 08/25/18 at 21:30 Heparin Sodium (Porcine) (Heparin (5000 Units/1ml)) 5,000 unit Q8 SC Last administered on 09/01/18 14:27; Admin Dose 5,000 UNIT; Start 08/29/18 at 14:00; Status Hold Aspirin (Aspirin) 81 mg DAILY PO Last administered on 09/03/18at 08:37; Admin Dose 81 MG; Start 08/30/18 at 09:00; Status Hold Pantoprazole (Protonix Tab) 40 mg DAILY@06 PO Last administered on 10/18/18 06:18; Admin Dose 40 MG; Start 09/19/18 at 06:00 Tramadol HCl (Ultram) 50 mg Q6H PRN PO MODERATE PAIN LEVEL 4-6 Last administered on 10/15/18 12:00; Admin Dose 50 MG; Start 09/23/18 at 15:00 Kana Phoenix DO Oct 18, 2018 11:48
[2018-10-18 14:00] VITALS: BP 100/63; PULSE 71; RESP 20
[2018-10-18] MEDS ORDERED: POTASSIUM CHLORIDE (SR) 20 MEQ TAB PO STA (14:18)
--- NOTE | 2018-10-18 14:20 | PN ---
Date/Time of Note Date/Time of Note DATE: 10/18/18 TIME: 14:18 Assessment/Plan VTE Prophylaxis Risk score (from Nsg)>0 risk: 1 SCD applied (from Nsg): Yes Pharmacological prophylaxis: other Lines/Catheters IV Catheter Type (from Nrsg): Saline Lock Urinary Cath still in place: No Assessment/Plan Hospital Course S: No acute events overnight, worked with physical therapy earlier today. O: VS - see below PE: Gen: Sitting up in chair, awake, responsive. HEENT: PERRL, moist mucous membranes, Card: Regular rate and rhythm no murmurs Pulm: CTA bilaterally, no crackles. Abd: Soft, nondistended Ext: No cyanosis/clubbing/edema A/P: 33 yo man brought in found down with subsequent JULIAN secondary to rhabdomyolysis; positive for alcohol, methamphetamine, cannabis, opioids as well. #Encephalopathy and Polyneuropathy- Despite extubation on 08/24, he remains lethargic and weak.- Head CT 08/20 negative- Repeat CT on 08/31 shows some edema of the basal ganglia, confirmed on MRI, this likely represents residual toxic metabolic effect - TSH, ammonia, AM cortisol are normal. CK has normalized-also there is associated with proximal muscle weakness but intact sensation-MRI C spine was most notable for signal changes within the paraspinal musculature of C3-C4 through C5-C6... which is likely a sequelae of rhabdomyolysis. - Continue physical therapy and occupational therapy # Renal failure- resolved now - Oliguric renal failure with hyperkalemia (after potassium replacement), also presented with severe metabolic acidosis- Likely due to a combination of rhabdo and drug use. -Monitor #Hematochezia- resolved- Nurse reported maroon colored stool on 09/01- EGD 09/02 only with mild gastritis and distal esophagitis- MD witnessed maroon colored, grainy stool on 09/03. Rectal exam negative for external hemorrhoids or palpable internal hemorrhoids. Colonoscopy showed solitary rectal ulcer syndrome, bleeding likely from the rectal ulcer. -Continue Protonix daily for regular ulcer PPx. #Bacteremia- Had fever on 08/27 - Blood culture (x1 unfortunately) from that day is growing coag negative staph, a common contaminant. Repeat blood culture negative.- D/Matias right IJ. But his femoral dialysis catheter was thought to be a possible source of infection -wound culture from the groin area where the dialysis catheter was performed, grew positive Pseudomonas, Enterobacter, and V RE. Status post treatment with antibiotics for this infection. Tip of Saurabh catheter culture was positive for Rosa on September 09, 2018. -Resolved now, monitor # acute respiratory failure- resolved, now on room air - extubated 08/24, was likely secondary to polysubstance overdose resulting in multiorgan dysfunction; patient had subsequent severe metabolic acidosis with inadequate respiratory compensation-now oxygen levels stable - s/p antibiotic treatment for CAP earlier this admission. -Continue to monitor # Elevated troponin-now appears stable- Likely demand ischemia from drug use. -Monitor will not treat per NSTEMI protocol. # transaminitis: -resolved -May be from shock liver or drug use.- Hep B, Hep C negative. LFTs have trended down. -Monitor for now # Rhabdomyolysis -occurred earlier this admission, patient required ICU care at that time, now resolved -Monitor # Coagulopathy- Resolved. # polysubstance abuse - Again patient was found to be positive for opioids, methamphetamine, marijuana and an elevated blood alcohol level. # DVT and GI prophylaxis: Protonix twice daily Dispo: Patient's neuromuscular recovery continues. He would likely benefit from ARU, as well SNF evaluation can be considered, but ARU would be the preferred option. Result Diagram: 10/18/18 0548 10/18/18 0548 Results 24hrs Laboratory Tests Test 10/18/18 05:48 White Blood Count 6.3 Red Blood Count 4.53 L Hemoglobin 13.7 L Hematocrit 39.7 L Mean Corpuscular Volume 87.6 Mean Corpuscular Hemoglobin 30.2 Mean Corpuscular Hemoglobin Concent 34.5 Red Cell Distribution Width 13.0 Platelet Count 319 Mean Platelet Volume 9.9 Immature Granulocytes % 0.200 Neutrophils % 49.2 Lymphocytes % 38.7 Monocytes % 5.9 Eosinophils % 5.4 Basophils % 0.6 Nucleated Red Blood Cells % 0.0 Immature Granulocytes # 0.010 Neutrophils # 3.1 Lymphocytes # 2.4 Monocytes # 0.4 Eosinophils # 0.3 Basophils # 0.0 Nucleated Red Blood Cells # 0.0 Sodium Level 142 Potassium Level 3.2 L Chloride Level 104 Carbon Dioxide Level 27 Anion Gap 11 Blood Urea Nitrogen 15 Creatinine 0.50 L Est Glomerular Filtrat Rate mL/min > 60 Glucose Level 113 Calcium Level 10.2 Phosphorus Level 4.3 Magnesium Level 1.7 Exam/Review of Systems Exam Vitals Vital Signs Date Temp Pulse Resp B/P (MAP) Pulse Ox O2 O2 Flow FiO2 Time Delivery Rate 10/18/18 97.7 71 20 100/63 98 14:00 (75) 10/16/18 Room Air 14:22 Intake and Output 10/17/18 10/17/18 10/18/18 1515:00 23:00 07:00 IntakeIntake Total 1480 ml 1170 ml 50 ml OutputOutput Total 1 ml BalanceBalance 1479 ml 1170 ml 50 ml Results Results 24hrs Laboratory Tests Test 10/18/18 05:48 White Blood Count 6.3 Red Blood Count 4.53 L Hemoglobin 13.7 L Hematocrit 39.7 L Mean Corpuscular Volume 87.6 Mean Corpuscular Hemoglobin 30.2 Mean Corpuscular Hemoglobin Concent 34.5 Red Cell Distribution Width 13.0 Platelet Count 319 Mean Platelet Volume 9.9 Immature Granulocytes % 0.200 Neutrophils % 49.2 Lymphocytes % 38.7 Monocytes % 5.9 Eosinophils % 5.4 Basophils % 0.6 Nucleated Red Blood Cells % 0.0 Immature Granulocytes # 0.010 Neutrophils # 3.1 Lymphocytes # 2.4 Monocytes # 0.4 Eosinophils # 0.3 Basophils # 0.0 Nucleated Red Blood Cells # 0.0 Sodium Level 142 Potassium Level 3.2 L Chloride Level 104 Carbon Dioxide Level 27 Anion Gap 11 Blood Urea Nitrogen 15 Creatinine 0.50 L Est Glomerular Filtrat Rate mL/min > 60 Glucose Level 113 Calcium Level 10.2 Phosphorus Level 4.3 Magnesium Level 1.7 Medications Medication Current Medications Metoprolol Tartrate (Lopressor) 25 mg BID PO Last administered on 10/18/18at 08:39; Admin Dose 25 MG; Start 08/23/18 at 21:00 Ondansetron HCl (Zofran Inj) 4 mg Q6H PRN IV NAUSEA AND/OR VOMITING Last administered on 08/25/18at 21:47; Admin Dose 4 MG; Start 08/25/18 at 21:30 Heparin Sodium (Porcine) (Heparin (5000 Units/1ml)) 5,000 unit Q8 SC Last administered on 09/01/18at 14:27; Admin Dose 5,000 UNIT; Start 08/29/18 at 14:00; Status Hold Aspirin (Aspirin) 81 mg DAILY PO Last administered on 09/03/18at 08:37; Admin Dose 81 MG; Start 08/30/18 at 09:00; Status Hold Pantoprazole (Protonix Tab) 40 mg DAILY@06 PO Last administered on 10/18/18at 06:18; Admin Dose 40 MG; Start 09/19/18 at 06:00 Tramadol HCl (Ultram) 50 mg Q6H PRN PO MODERATE PAIN LEVEL 4-6 Last administered on 10/15/18at 12:00; Admin Dose 50 MG; Start 09/23/18 at 15:00 CINTIA ESPINOSA Oct 18, 2018 14:20
[2018-10-18 19:45] VITALS: BP 101/68; PULSE 84; RESP 18
[2018-10-18 21:22] VITALS: BP 113/71; PULSE 80; RESP 17
[2018-10-19 01:15] VITALS: BP 108/63; PULSE 69; RESP 18
[2018-10-19] MEDS: PANTOPRAZOLE (EC) 40 MG TAB PO SCH (06:13)
[2018-10-19 07:46] VITALS: BP 106/73; PULSE 73; RESP 18
[2018-10-19] MEDS: METOPROLOL 25 MG TAB PO SCH ×2 (09:00→19:46)
--- NOTE | 2018-10-19 11:30 | PN ---
Date/Time of Note Date/Time of Note DATE: 10/19/18 TIME: 11: Assessment/Plan VTE Prophylaxis Risk score (from Nsg)>0 risk: 1 SCD applied (from Nsg): Yes Pharmacological prophylaxis: other Lines/Catheters IV Catheter Type (from Nrsg): Saline Lock Urinary Cath still in place: No Assessment/Plan Hospital Course S: No acute events overnight. O: VS - see below PE: Gen: Sitting up in chair, awake, responsive. HEENT: PERRL, moist mucous membranes, Card: Regular rate and rhythm no murmurs Pulm: CTA bilaterally, no crackles. Abd: Soft, nondistended Ext: No cyanosis/clubbing/edema A/P: 33 yo man brought in found down with subsequent JULIAN secondary to rhabdomyolysis; positive for alcohol, methamphetamine, cannabis, opioids as well. #Encephalopathy and Polyneuropathy- Despite extubation on 08/24, he remains lethargic and weak.- Head CT 08/20 negative- Repeat CT on 08/31 shows some edema of the basal ganglia, confirmed on MRI, this likely represents residual toxic metabolic effect - TSH, ammonia, AM cortisol are normal. CK has normalized-also there is associated with proximal muscle weakness but intact sensation-MRI C spine was most notable for signal changes within the paraspinal musculature of C3-C4 through C5-C6... which is likely a sequelae of rhabdomyolysis. - Continue physical therapy and occupational therapy # Renal failure- resolved now - Oliguric renal failure with hyperkalemia (after potassium replacement), also presented with severe metabolic acidosis- Likely due to a combination of rhabdo and drug use. -Monitor #Hematochezia- resolved- Nurse reported maroon colored stool on 09/01- EGD 09/02 only with mild gastritis and distal esophagitis- MD witnessed maroon colored, grainy stool on 09/03. Rectal exam negative for external hemorrhoids or palpable internal hemorrhoids. Colonoscopy showed solitary rectal ulcer syndrome, bleeding likely from the rectal ulcer. -Continue Protonix daily for regular ulcer PPx. #Bacteremia- Had fever on 08/27 - Blood culture (x1 unfortunately) from that day is growing coag negative staph, a common contaminant. Repeat blood culture negative.- D/Matias right IJ. But his femoral dialysis catheter was thought to be a possible source of infection -wound culture from the groin area where the dialysis catheter was performed, grew positive Pseudomonas, Enterobacter, and VRE. Status post treatment with antibiotics for this infection. Tip of Saurabh catheter culture was positive for Rosa on September 09, 2018. -Resolved now, monitor # acute respiratory failure- resolved, now on room air - extubated 08/24, was likely secondary to polysubstance overdose resulting in multiorgan dysfunction; patient had subsequent severe metabolic acidosis with inadequate respiratory compensation-now oxygen levels stable - s/p antibiotic treatment for CAP earlier this admission. -Continue to monitor # Elevated troponin-now appears stable- Likely demand ischemia from drug use. -Monitor will not treat per NSTEMI protocol. # transaminitis: -resolved -May be from shock liver or drug use.- Hep B, Hep C negative. LFTs have trended down. -Monitor for now # Rhabdomyolysis -occurred earlier this admission, patient required ICU care at that time, now resolved -Monitor # Coagulopathy- Resolved. # polysubstance abuse - Again patient was found to be positive for opioids, methamphetamine, marijuana and an elevated blood alcohol level. # DVT and GI prophylaxis: Protonix twice daily Dispo: Patient's neuromuscular recovery continues. He would likely benefit from ARU, as well SNF evaluation can be considered, but ARU would be the preferred option -we will also reconsult outside ARU facility to evaluate patient as well as again our [facility] ARU facility. Result Diagram: 10/18/18 0548 10/18/18 0548 Exam/Review of Systems Exam Vitals Vital Signs Date Temp Pulse Resp B/P (MAP) Pulse Ox O2 O2 Flow FiO2 Time Delivery Rate 10/19/18 98.1 73 18 106/73 100 Room Air 07:46 (84) Intake and Output 10/18/18 10/18/18 10/19/18 1414:59 22:59 06:59 IntakeIntake Total 1080 ml 810 ml 250 ml OutputOutput Total 400 ml BalanceBalance 1080 ml 810 ml -150 ml Medications Medication Current Medications Metoprolol Tartrate (Lopressor) 25 mg BID PO Last administered on 10/18/18at 21:22; Admin Dose 25 MG; Start 08/23/18 at 21:00 Ondansetron HCl (Zofran Inj) 4 mg Q6H PRN IV NAUSEA AND/OR VOMITING Last administered on 08/25/18at 21:47; Admin Dose 4 MG; Start 08/25/18 at 21:30 Heparin Sodium (Porcine) (Heparin (5000 Units/1ml)) 5,000 unit Q8 SC Last administered on 09/01/18at 14:27; Admin Dose 5,000 UNIT; Start 08/29/18 at 14:00; Status Hold Aspirin (Aspirin) 81 mg DAILY PO Last administered on 09/03/18at 08:37; Admin Dose 81 MG; Start 08/30/18 at 09:00; Status Hold Pantoprazole (Protonix Tab) 40 mg DAILY@06 PO Last administered on 10/19/18at 06:13; Admin Dose 40 MG; Start 09/19/18 at 06:00 Tramadol HCl (Ultram) 50 mg Q6H PRN PO MODERATE PAIN LEVEL 4-6 Last administered on 10/15/18at 12:00; Admin Dose 50 MG; Start 09/23/18 at 15:00 CINTIA ESPINOSA Oct 19, 2018 11:30
[2018-10-19 14:20] VITALS: BP 103/68; PULSE 110; RESP 18
--- NOTE | 2018-10-19 14:45 | CONS ---
Assessment/Plan Assessment/Plan Hospital Course (Demo Recall) S/P Respiratory failure status post extubation Low normal left ventricular ejection fraction 50% Sepsis S/P Acute kidney injury, was on hemodialysis Elevated troponin, type II myocardial infarction Encephalopathy GI bleed Liver dysfunction Illicit drug use -Off aspirin secondary to GI bleed. -Continue beta-kishan as tolerated. -No new cardiac orders at the current time Consultation Date/Type/Reason Admit Date/Time Aug 20, 2018 at 21:39 Initial Consult Date 08/21/18 Type of Consult Cardiology Requesting Provider: YUMIKO JC MD Date/Time of Note DATE: 10/19/18 TIME: 14:45 24 HR Interval Summary Free Text/Dictation No shortness of breath, chest pain Exam/Review of Systems Vital Signs Vitals Vital Signs Date Temp Pulse Resp B/P (MAP) Pulse Ox O2 O2 Flow FiO2 Time Delivery Rate 10/19/18 98.1 73 18 106/73 100 Room Air 07:46 (84) Intake and Output 10/18/18 10/18/18 10/19/18 1515:00 23:00 07:00 IntakeIntake Total 1080 ml 810 ml 250 ml OutputOutput Total 400 ml BalanceBalance 1080 ml 810 ml -150 ml Exam Constitutional: alert (No apparent distress, sitting in chair) Head: normocephalic Respiratory: clear to auscultation, normal air movement Cardiovascular: regular rate and rhythm (S1-S2 heard) Gastrointestinal: soft, non-tender, bowel sounds Extremities: other (No significant edema) Labs Result Diagram: 10/18/1854710/18/1848 Medications Medications Current Medications Metoprolol Tartrate (Lopressor) 25 mg BID PO Last administered on 10/18/18at 21:22; Admin Dose 25 MG; Start 08/23/18 at 21:00 Ondansetron HCl (Zofran Inj) 4 mg Q6H PRN IV NAUSEA AND/OR VOMITING Last administered on 08/25/18at 21:47; Admin Dose 4 MG; Start 08/25/18 at 21:30 Heparin Sodium (Porcine) (Heparin (5000 Units/1ml)) 5,000 unit Q8 SC Last administered on 09/01/18at 14:27; Admin Dose 5,000 UNIT; Start 08/29/18 at 14: 00; Status Hold Aspirin (Aspirin) 81 mg DAILY PO Last administered on 09/03/18at 08:37; Admin Dose 81 MG; Start 08/30/18 at 09:00; Status Hold Pantoprazole (Protonix Tab) 40 mg DAILY@06 PO Last administered on 10/19/18at 06:13; Admin Dose 40 MG; Start 09/19/18 at 06:00 Tramadol HCl (Ultram) 50 mg Q6H PRN PO MODERATE PAIN LEVEL 4-6 Last administered on 10/15/18at 12:00; Admin Dose 50 MG; Start 09/23/18 at 15:00 Kana Phoenix DO Oct 19, 2018 14:45
[2018-10-19] MEDS: traMADol 50 MG TAB PO PRN (19:52)
[2018-10-19 20:00] VITALS: BP 107/69; PULSE 109; RESP 16
[2018-10-20 01:59] VITALS: BP 102/71; PULSE 87; RESP 16
[2018-10-20] MEDS: PANTOPRAZOLE (EC) 40 MG TAB PO SCH (05:26)
[2018-10-20 07:24] VITALS: BP 97/64; PULSE 72; RESP 16
[2018-10-20] MEDS: METOPROLOL 25 MG TAB PO SCH ×2 (08:34→21:00)
--- NOTE | 2018-10-20 12:43 | PN ---
Date/Time of Note Date/Time of Note DATE: 10/20/18 TIME: 12:40 Assessment/Plan VTE Prophylaxis Risk score (from Nsg)>0 risk: 1 SCD applied (from Nsg): Yes Pharmacological prophylaxis: other Lines/Catheters IV Catheter Type (from Nrsg): Saline Lock Urinary Cath still in place: No Assessment/Plan Hospital Course S: No acute events overnight. O: VS - see below PE: Gen: Sitting up in chair, awake, responsive. HEENT: PERRL, moist mucous membranes, Card: Regular rate and rhythm no murmurs Pulm: CTA bilaterally, no crackles. Abd: Soft, nondistended Ext: No cyanosis/clubbing/edema A/P: 33 yo man brought in found down with subsequent JULIAN secondary to rhabdomyolysis; positive for alcohol, methamphetamine, cannabis, opioids as well. #Encephalopathy and Polyneuropathy- Despite extubation on 08/24, he remains lethargic and weak.- Head CT 08/20 negative- Repeat CT on 08/31 shows some edema of the basal ganglia, confirmed on MRI, this likely represents residual toxic metabolic effect - TSH, ammonia, AM cortisol are normal. CK has normalized-also there is associated with proximal muscle weakness but intact sensation-MRI C spine was most notable for signal changes within the paraspinal musculature of C3-C4 through C5-C6... which is likely a sequelae of rhabdomyolysis. - Continue physical therapy and occupational therapy # Renal failure- resolved now - Oliguric renal failure with hyperkalemia (after potassium replacement), also presented with severe metabolic acidosis- Likely due to a combination of rhabdo and drug use. -Monitor #Hematochezia- resolved- Nurse reported maroon colored stool on 09/01- EGD 09/02 only with mild gastritis and distal esophagitis- MD witnessed maroon colored, grainy stool on 09/03. Rectal exam negative for external hemorrhoids or palpable internal hemorrhoids. Colonoscopy showed solitary rectal ulcer syndrome, bleeding likely from the rectal ulcer. -Continue Protonix daily for regular ulcer PPx. #Bacteremia- Had fever on 08/27 - Blood culture (x1 unfortunately) from that day is growing coag negative staph, a common contaminant. Repeat blood culture negative.- D/Matias right IJ. But his femoral dialysis catheter was thought to be a possible source of infection -wound culture from the groin area where the dialysis catheter was performed, grew positive Pseudomonas, Enterobacter, and VRE. Status post treatment with antibiotics for this infection. Tip of Saurabh catheter culture was positive for Rosa on September 09, 2018. -Resolved now, monitor # acute respiratory failure- resolved, now on room air - extubated 08/24, was likely secondary to polysubstance overdose resulting in multiorgan dysfunction; patient had subsequent severe metabolic acidosis with inadequate respiratory compensation-now oxygen levels stable - s/p antibiotic treatment for CAP earlier this admission. -Continue to monitor # Elevated troponin-now appears stable- Likely demand ischemia from drug use. -Monitor will not treat per NSTEMI protocol. # transaminitis: -resolved -May be from shock liver or drug use.- Hep B, Hep C negative. LFTs have trended down. -Monitor for now # Rhabdomyolysis -occurred earlier this admission, patient required ICU care at that time, now resolved -Monitor # Coagulopathy- Resolved. # polysubstance abuse - Again patient was found to be positive for opioids, methamphetamine, marijuana and an elevated blood alcohol level. # DVT and GI prophylaxis: Protonix twice daily Dispo: Patient's neuromuscular recovery continues. He would likely benefit from ARU, as well SNF evaluation can be considered, but ARU would be the preferred option -awaiting final decision from outside ARU facility to accept patient, as well as again our [facility] ARU facility. Result Diagram: 10/18/1848 10/18/1848 Exam/Review of Systems Exam Vitals Vital Signs Date Temp Pulse Resp B/P (MAP) Pulse Ox O2 O2 Flow FiO2 Time Delivery Rate 10/20/18 98.3 72 16 97/64 (75) 99 Room Air 07:24 Intake and Output 10/19/18 10/19/18 10/20/18 1414:59 22:59 06:59 IntakeIntake Total 600 ml OutputOutput Total 850 ml 800 ml BalanceBalance -250 ml -800 ml Medications Medication Current Medications Metoprolol Tartrate (Lopressor) 25 mg BID PO Last administered on 10/18/18at 21:22; Admin Dose 25 MG; Start 08/23/18 at 21:00 Ondansetron HCl (Zofran Inj) 4 mg Q6H PRN IV NAUSEA AND/OR VOMITING Last administered on 08/25/18at 21:47; Admin Dose 4 MG; Start 08/25/18 at 21:30 Heparin Sodium (Porcine) (Heparin (5000 Units/1ml)) 5,000 unit Q8 SC Last administered on 09/01/18at 14:27; Admin Dose 5,000 UNIT; Start 08/29/18 at 14:0 0; Status Hold Aspirin (Aspirin) 81 mg DAILY PO Last administered on 09/03/18at 08:37; Admin Dose 81 MG; Start 08/30/18 at 09:00; Status Hold Pantoprazole (Protonix Tab) 40 mg DAILY@06 PO Last administered on 10/20/18at 05:26; Admin Dose 40 MG; Start 09/19/18 at 06:00 Tramadol HCl (Ultram) 50 mg Q6H PRN PO MODERATE PAIN LEVEL 4-6 Last administered on 10/19/18at 19:52; Admin Dose 50 MG; Start 09/23/18 at 15:00 CINTIA ESPINOSA Oct 20, 2018 12:43
[2018-10-20 14:33] VITALS: BP 106/68; PULSE 92; RESP 15
--- NOTE | 2018-10-20 16:00 | CONS ---
Assessment/Plan Assessment/Plan Hospital Course (Demo Recall) S/P Respiratory failure status post extubation Low normal left ventricular ejection fraction 50% Sepsis S/P Acute kidney injury, was on hemodialysis Elevated troponin, type II myocardial infarction Encephalopathy GI bleed Liver dysfunction Illicit drug use -Off aspirin secondary to GI bleed. -Continue beta-kishan as tolerated. -No new cardiac orders at the current time Consultation Date/Type/Reason Admit Date/Time Aug 20, 2018 at 21:39 Initial Consult Date 08/21/18 Type of Consult Cardiology Requesting Provider: YUMIKO JC MD Date/Time of Note DATE: 10/20/18 TIME: 15:59 24 HR Interval Summary Free Text/Dictation Denies shortness of breath, chest pain or palpitations Exam/Review of Systems Vital Signs Vitals Vital Signs Date Temp Pulse Resp B/P (MAP) Pulse Ox O2 O2 Flow FiO2 Time Delivery Rate 10/20/18 98.6 92 15 106/68 98 Room Air 14:33 (81) Intake and Output 10/19/18 10/19/18 10/20/18 1515:00 23:00 07:00 IntakeIntake Total 600 ml OutputOutput Total 850 ml 800 ml BalanceBalance -250 ml -800 ml Exam Constitutional: alert (No apparent distress, eating lunch) Head: normocephalic Respiratory: clear to auscultation, normal air movement Cardiovascular: regular rate and rhythm (S1-S2 heard) Gastrointestinal: soft, non-tender, bowel sounds Extremities: other (No significant edema) Labs Result Diagram: 10/18/1854710/18/18547 Medications Medications Current Medications Metoprolol Tartrate (Lopressor) 25 mg BID PO Last administered on 10/18/18at 21:22; Admin Dose 25 MG; Start 08/23/18 at 21:00 Ondansetron HCl (Zofran Inj) 4 mg Q6H PRN IV NAUSEA AND/OR VOMITING Last administered on 08/25/18at 21:47; Admin Dose 4 MG; Start 08/25/18 at 21:30 Heparin Sodium (Porcine) (Heparin (5000 Units/1ml)) 5,000 unit Q8 SC Last administered on 09/01/18at 14:27; Admin Dose 5,000 UNIT; Start 08/29/18 at 1 4:00; Status Hold Aspirin (Aspirin) 81 mg DAILY PO Last administered on 09/03/18at 08:37; Admin Dose 81 MG; Start 08/30/18 at 09:00; Status Hold Pantoprazole (Protonix Tab) 40 mg DAILY@06 PO Last administered on 10/20/18at 05:26; Admin Dose 40 MG; Start 09/19/18 at 06:00 Tramadol HCl (Ultram) 50 mg Q6H PRN PO MODERATE PAIN LEVEL 4-6 Last administered on 10/19/18at 19:52; Admin Dose 50 MG; Start 09/23/18 at 15:00 Kana Phoenix DO Oct 20, 2018 16:00
[2018-10-20 20:05] VITALS: BP 103/62; PULSE 102; RESP 16
[2018-10-21 02:00] VITALS: BP 107/71; PULSE 84; RESP 18
--- NOTE | 2018-10-21 08:09 | CONS ---
Assessment/Plan Assessment/Plan Assessment/Plan (Daily) S/P Respiratory failure status post extubation Low normal left ventricular ejection fraction 50% Sepsis S/P Acute kidney injury, was on hemodialysis Elevated troponin, type II myocardial infarction Encephalopathy GI bleed Liver dysfunction Illicit drug use -Off aspirin secondary to GI bleed. -Continue beta-kishan as tolerated. -No new cardiac orders at the current time Consultation Date/Type/Reason Admit Date/Time Aug 20, 2018 at 21:39 Initial Consult Date 09/01/18 Type of Consult Cardiology Requesting Provider: YUMIKO JC MD Date/Time of Note DATE: 10/21/18 TIME: 08:09 24 HR Interval Summary Free Text/Dictation The patient with no cahge Exam/Review of Systems Vital Signs Vitals Vital Signs Date Temp Pulse Resp B/P (MAP) Pulse Ox O2 O2 Flow FiO2 Time Delivery Rate 10/21/18 98.4 84 18 107/71 98 02:00 (83) 10/20/18 Room Air 14:33 Intake and Output 10/20/18 10/20/18 10/21/18 1515:00 23:00 07:00 IntakeIntake Total 240 ml 460 ml 440 ml OutputOutput Total 600 ml 400 ml 900 ml BalanceBalance -360 ml 60 ml -460 ml Labs Result Diagram: 10/18/18 0548 10/18/18 0548 Medications Medications Current Medications Metoprolol Tartrate (Lopressor) 25 mg BID PO Last administered on 10/18/18at 21:22; Admin Dose 25 MG; Start 08/23/18 at 21:00 Ondansetron HCl (Zofran Inj) 4 mg Q6H PRN IV NAUSEA AND/OR VOMITING Last administered on 08/25/18at 21:47; Admin Dose 4 MG; Start 08/25/18 at 21:30 Heparin Sodium (Porcine) (Heparin (5000 Units/1ml)) 5,000 unit Q8 SC Last administered on 09/01/18at 14:27; Admin Dose 5,000 UNIT; Start 08/29/18 at 14:00; Status Hold Aspirin (Aspirin) 81 mg DAILY PO Last administered on 09/03/18at 08:37; Admin Dose 81 MG; Start 08/30/18 at 09:00; Status Hold Tramadol HCl (Ultram) 50 mg Q6H PRN PO MODERATE PAIN LEVEL 4-6 Last administered on 10/19/18at 19:52; Admin Dose 50 MG; Start 09/23/18 at 15:00 SUNIL LY MD Oct 21, 2018 08:09
[2018-10-21 08:20] VITALS: BP 106/73; PULSE 72; RESP 18
[2018-10-21] MEDS: METOPROLOL 25 MG TAB PO SCH ×2 (09:00→21:00)
--- NOTE | 2018-10-21 12:03 | PN ---
Date/Time of Note Date/Time of Note DATE: 10/21/18 TIME: 12:01 Assessment/Plan VTE Prophylaxis Risk score (from Nsg)>0 risk: 1 SCD applied (from Nsg): Yes Pharmacological prophylaxis: other Lines/Catheters IV Catheter Type (from Nrsg): Saline Lock Urinary Cath still in place: No Assessment/Plan Hospital Course S: No acute events overnight. Worked with therapy teams and seen by cardiology team. O: VS - see below PE: Gen: Sitting up in chair, awake, responsive. HEENT: PERRL, moist mucous membranes, Card: Regular rate and rhythm no murmurs Pulm: CTA bilaterally, no crackles. Abd: Soft, nondistended Ext: No cyanosis/clubbing/edema A/P: 33 yo man brought in found down with subsequent JULIAN secondary to rhabdomyolysis; positive for alcohol, methamphetamine, cannabis, opioids as well. #Encephalopathy and Polyneuropathy- Despite extubation on 08/24, he remains lethargic and weak.- Head CT 08/20 negative- Repeat CT on 08/31 shows some edema of the basal ganglia, confirmed on MRI, this likely represents residual toxic metabolic effect - TSH, ammonia, AM cortisol are normal. CK has normalized-also there is associated with proximal muscle weakness but intact sensation-MRI C spine was most notable for signal changes within the paraspinal musculature of C3-C4 through C5-C6... which is likely a sequelae of rhabdomyolysis. - Continue physical therapy and occupational therapy # Renal failure- resolved now - Oliguric renal failure with hyperkalemia (after potassium replacement), also presented with severe metabolic acidosis- Likely due to a combination of rhabdo and drug use. -Monitor #Hematochezia- resolved- Nurse reported maroon colored stool on 09/01- EGD 09/02 only with mild gastritis and distal esophagitis- MD witnessed maroon colored, grainy stool on 09/03. Rectal exam negative for external hemorrhoids or palpable internal hemorrhoids. Colonoscopy showed solitary rectal ulcer syndrome, bleeding likely from the rectal ulcer. -Continue Protonix daily for regular ulcer PPx. #Bacteremia- Had fever on 08/27 - Blood culture (x1 unfortunately) from that day is growing coag negative staph, a common contaminant. Repeat blood culture negative.- D/Matias right IJ. But his femoral dialysis catheter was thought to be a possible source of infection -wound culture from the groin area where the dialysis catheter was performed, grew positive Pseudomonas, Enterobacter, and VRE. Status post treatment with antibiotics for this infection. Tip of Saurabh catheter culture was positive for Rosa on September 09, 2018. -Resolved now, monitor # acute respiratory failure- resolved, now on room air - extubated 08/24, was likely secondary to polysubstance overdose resulting in multiorgan dysfunction; patient had subsequent severe metabolic acidosis with inadequate respiratory compensation-now oxygen levels stable - s/p antibiotic treatment for CAP earlier this admission. -Continue to monitor # Elevated troponin-now appears stable-a type II event per cardiology team, likely demand ischemia from drug use. Per discussion with cardiology team yesterday stress test is not indicated at this time. This was a type II event in the setting of multiorgan damage patient does not have any symptoms of ischemia. -Monitor, will not treat per NSTEMI protocol, again no need for cardiac stress test at this time. # transaminitis: -resolved -May be from shock liver or drug use.- Hep B, Hep C negative. LFTs have trended down. -Monitor for now # Rhabdomyolysis -occurred earlier this admission, patient required ICU care at that time, now resolved -Monitor # Coagulopathy- Resolved. # polysubstance abuse - Again patient was found to be positive for opioids, methamphetamine, marijuana and an elevated blood alcohol level. # DVT and GI prophylaxis: Protonix twice daily Dispo: Patient's neuromuscular recovery continues. He would likely benefit from ARU, as well SNF evaluation can be considered, but ARU would be the preferred option -awaiting final decision from outside ARU facility to accept patient, as well as again our [facility] ARU facility. Result Diagram: 10/18/18 0548 10/18/18 0548 Exam/Review of Systems Exam Vitals Vital Signs Date Temp Pulse Resp B/P (MAP) Pulse Ox O2 O2 Flow FiO2 Time Delivery Rate 10/21/18 98.2 72 18 106/73 98 08:20 (84) 10/20/18 Room Air 14:33 Intake and Output 10/20/18 10/20/18 10/21/18 1515:00 23:00 07:00 IntakeIntake Total 240 ml 460 ml 440 ml OutputOutput Total 600 ml 400 ml 900 ml BalanceBalance -360 ml 60 ml -460 ml Medications Medication Current Medications Metoprolol Tartrate (Lopressor) 25 mg BID PO Last administered on 10/18/18 21:22; Admin Dose 25 MG; Start 08/23/18 at 21:00 Ondansetron HCl (Zofran Inj) 4 mg Q6H PRN IV NAUSEA AND/OR VOMITING Last administered on 08/25/18at 21:47; Admin Dose 4 MG; Start 08/25/18 at 21:30 Heparin Sodium (Porcine) (Heparin (5000 Units/1ml)) 5,000 unit Q8 SC Last administered on 09/01/18at 14:27; Admin Dose 5,000 UNIT; Start 08/29/18 at 14:00; Status Hold Aspirin (Aspirin) 81 mg DAILY PO Last administered on 09/03/18at 08:37; Admin Dose 81 MG; Start 08/30/18 at 09:00; Status Hold Tramadol HCl (Ultram) 50 mg Q6H PRN PO MODERATE PAIN LEVEL 4-6 Last administered on 10/19/18 19:52; Admin Dose 50 MG; Start 09/23/18 at 15:00 CINTIA ESPINOSA Oct 21, 2018 12:02
[2018-10-21 15:19] VITALS: BP 103/76; PULSE 86; RESP 18
[2018-10-21 19:55] VITALS: BP 106/72; PULSE 67; RESP 18
[2018-10-22 01:45] VITALS: BP 107/72; PULSE 77; RESP 16
[2018-10-22 07:32] VITALS: BP 118/76; PULSE 76; RESP 20
--- NOTE | 2018-10-22 08:58 | PN ---
Date/Time of Note Date/Time of Note DATE: 10/22/18 TIME: 08:58 Assessment/Plan VTE Prophylaxis Risk score (from Nsg)>0 risk: 1 SCD applied (from Nsg): Yes Pharmacological prophylaxis: other Lines/Catheters IV Catheter Type (from Nrsg): Saline Lock Urinary Cath still in place: No Assessment/Plan Hospital Course S: No acute events overnight. O: VS - see below PE: Gen: Sitting up in chair, awake, responsive. HEENT: PERRL, moist mucous membranes, Card: Regular rate and rhythm no murmurs Pulm: CTA bilaterally, no crackles. Abd: Soft, nondistended Ext: No cyanosis/clubbing/edema A/P: 33 yo man brought in found down with subsequent JULIAN secondary to rhabdomyolysis; positive for alcohol, methamphetamine, cannabis, opioids as well. #Encephalopathy and Polyneuropathy- Despite extubation on 08/24, he remains lethargic and weak.- Head CT 08/20 negative- Repeat CT on 08/31 shows some edema of the basal ganglia, confirmed on MRI, this likely represents residual toxic metabolic effect - TSH, ammonia, AM cortisol are normal. CK has normalized-also there is associated with proximal muscle weakness but intact sensation-MRI C spine was most notable for signal changes within the paraspinal musculature of C 3-C4 through C5-C6... which is likely a sequelae of rhabdomyolysis. - Continue physical therapy and occupational therapy # Renal failure- resolved now - Oliguric renal failure with hyperkalemia (after potassium replacement), also presented with severe metabolic acidosis- Likely due to a combination of rhabdo and drug use. -Monitor #Hematochezia- resolved- Nurse reported maroon colored stool on 09/01- EGD 09/02 only with mild gastritis and distal esophagitis- MD witnessed maroon colored, grainy stool on 09/03. Rectal exam negative for external hemorrhoids or palpable internal hemorrhoids. Colonoscopy showed solitary rectal ulcer syndrome, bleeding likely from the rectal ulcer. -Continue Protonix daily for regular ulcer PPx. #Bacteremia- Had fever on 08/27 - Blood culture (x1 unfortunately) from that day is growing coag negative staph, a common contaminant. Repeat blood culture negative.- D/Matias right IJ. But his femoral dialysis catheter was thought to be a possible source of infection -wound culture from the groin area where the dialysis catheter was performed, grew positive Pseudomonas, Enterobacter, and VRE. Status post treatment with antibiotics for this infection. Tip of Saurabh catheter culture was positive for Rosa on September 09, 2018. -Resolved now, monitor # acute respiratory failure- resolved, now on room air - extubated 08/24, was likely secondary to polysubstance overdose resulting in multiorgan dysfunction; patient had subsequent severe metabolic acidosis with inadequate respiratory compensation-now oxygen levels stable - s/p antibiotic treatment for CAP earlier this admission. -Continue to monitor # Elevated troponin-now appears stable-a type II event per cardiology team, likely demand ischemia from drug use. Per discussion with cardiology team yesterday stress test is not indicated at this time. This was a type II event in the setting of multiorgan damage patient does not have any symptoms of ischemia. -Monitor, will not treat per NSTEMI protocol, again no need for cardiac stress test at this time. # transaminitis: -resolved -May be from shock liver or drug use.- Hep B, Hep C negative. LFTs have trended down. -Monitor for now # Rhabdomyolysis -occurred earlier this admission, patient required ICU care at that time, now resolved -Monitor # Coagulopathy- Resolved. # polysubstance abuse - Again patient was found to be positive for opioids, met hamphetamine, marijuana and an elevated blood alcohol level. # DVT and GI prophylaxis: Protonix twice daily Dispo: Patient's neuromuscular recovery continues. He would likely benefit from ARU, as well SNF evaluation can be considered, but ARU would be the preferred option -awaiting final decision from outside ARU facility to accept patient, as well as again our [facility] ARU facility. Result Diagram: 10/18/1848 10/18/1848 Exam/Review of Systems Exam Vitals Vital Signs Date Temp Pulse Resp B/P (MAP) Pulse Ox O2 O2 Flow FiO2 Time Delivery Rate 10/22/18 98.0 76 20 118/76 98 07:32 (90) 10/20/18 Room Air 14:33 Intake and Output 10/21/18 10/21/18 10/22/18 1515:00 23:00 07:00 IntakeIntake Total 480 ml OutputOutput Total 1000 ml BalanceBalance 480 ml -1000 ml Medications Medication Current Medications Metoprolol Tartrate (Lopressor) 25 mg BID PO Last administered on 10/18/18 21:22; Admin Dose 25 MG; Start 08/23/18 at 21:00 Ondansetron HCl (Zofran Inj) 4 mg Q6H PRN IV NAUSEA AND/OR VOMITING Last administered on 08/25/18at 21:47; Admin Dose 4 MG; Start 08/25/18 at 21:30 Heparin Sodium (Porcine) (Heparin (5000 Units/1ml)) 5,000 unit Q8 SC Last administered on 09/01/18at 14:27; Admin Dose 5,000 UNIT; Start 08/29/18 at 14:00; Status Hold Aspirin (Aspirin) 81 mg DAILY PO Last administered on 09/03/18 08:37; Admin Dose 81 MG; Start 08/30/18 at 09:00; Status Hold Tramadol HCl (Ultram) 50 mg Q6H PRN PO MODERATE PAIN LEVEL 4-6 Last administered on 10/19/18 19:52; Admin Dose 50 MG; Start 09/23/18 at 15:00 CINTIA ESPINOSA Oct 22, 2018 08:58
[2018-10-22] MEDS: METOPROLOL 25 MG TAB PO SCH ×2 (09:10→20:58)
[2018-10-22] MEDS: [UNRECOGNIZED DRUG - OTHER] XX SCH ×2 (13:00→20:59)
[2018-10-22 13:30] VITALS: BP 110/78; PULSE 89; RESP 20
[2018-10-22 19:49] VITALS: BP_SYST 108; BP_SYST 130; BP_DIAS 70; BP_DIAS 77; PULSE 101; PULSE 94; RESP 16; RESP 18
[2018-10-22 20:55] VITALS: BP 109/72; PULSE 93
[2018-10-23 01:55] VITALS: BP 109/75; PULSE 82; RESP 18
[2018-10-23] MEDS: [UNRECOGNIZED DRUG - OTHER] XX SCH ×2 (05:00→13:00)
[2018-10-23 07:31] VITALS: BP 104/79; PULSE 70; RESP 20
[2018-10-23] MEDS: METOPROLOL 25 MG TAB PO SCH ×2 (09:11→20:37)
--- NOTE | 2018-10-23 10:46 | PN ---
Date/Time of Note Date/Time of Note DATE: 10/23/18 TIME: 10:44 Assessment/Plan VTE Prophylaxis Risk score (from Nsg)>0 risk: 2 SCD applied (from Nsg): Yes Pharmacological prophylaxis: other Lines/Catheters IV Catheter Type (from Nrsg): Saline Lock Urinary Cath still in place: No Assessment/Plan Hospital Course S: No acute events overnight. O: VS - see below PE: Gen: Sitting up in chair, awake, responsive. HEENT: PERRL, moist mucous membranes, Card: Regular rate and rhythm no murmurs Pulm: CTA bilaterally, no crackles. Abd: Soft, nondistended Ext: No cyanosis/clubbing/edema A/P: 33 yo man brought in found down with subsequent JULIAN secondary to rhabdomyolysis; positive for alcohol, methamphetamine, cannabis, opioids as well. #Encephalopathy and Polyneuropathy- Despite extubation on 08/24, he remains lethargic and weak.- Head CT 08/20 negative- Repeat CT on 08/31 shows some edema of the basal ganglia, confirmed on MRI, this likely represents residual toxic metabolic effect - TSH, ammonia, AM cortisol are normal. CK has normalized-also there is associated with proximal muscle weakness but intact sensation-MRI C spine was most notable for signal changes within the paraspinal musculature of C3-C4 through C5-C6... which is likely a sequelae of rhabdomyolysis. - Continue physical therapy and occupational therapy # Renal failure- resolved now - previously had oliguric renal failure with hyperkalemia (after potassium replacement), also presented with severe metabolic acidosis- Likely due to a combination of rhabdo and drug use. -Monitor #Hematochezia- resolved- Nurse reported maroon colored stool on 09/01- EGD 09/02 only with mild gastritis and distal esophagitis- MD witnessed maroon colored, grainy stool on 09/03. Rectal exam negative for external hemorrhoids or palpable internal hemorrhoids. Colonoscopy showed solitary rectal ulcer syndrome, bleeding likely from the rectal ulcer. -Continue Protonix daily for regular ulcer PPx. #Bacteremia- Had fever on 08/27 - Blood culture (x1 unfortunately) from that day is growing coag negative staph, a common contaminant. Repeat blood culture negative.- D/Matias right IJ. But his femoral dialysis catheter was thought to be a possible source of infection -wound culture from the groin area where the dialysis catheter was performed, grew positive Pseudomonas, Enterobacter, and VRE. Status post treatment with antibiotics for this infection. Tip of Saurabh catheter culture was positive for Rosa on September 09, 2018. -Resolved now, monitor # acute respiratory failure- resolved, now on room air - extubated 08/24, was likely secondary to polysubstance overdose resulting in multiorgan dysfunction; patient had subsequent severe metabolic acidosis with inadequate respiratory compensation-now oxygen levels stable - s/p antibiotic treatment for CAP earlier this admission. -Continue to monitor # Elevated troponin-now appears stable-a type II event per cardiology team, likely demand ischemia from drug use. Per discussion with cardiology team 3 days ago stress test is not indicated at this time. They state this was a type II event in the setting of multiorgan damage patient does not have any symptoms of ischemia. -Monitor, will not treat per NSTEMI protocol, again no need for cardiac stress test at this time. # transaminitis: -resolved -May be from shock liver or drug use.- Hep B, Hep C negative. LFTs have trended down. -Monitor for now # Rhabdomyolysis -occurred earlier this admission, patient required ICU care at that time, now resolved -Monitor # Coagulopathy- Resolved. # polysubstance abuse - Again patient was found to be positive for opioids, methamphetamine, marijuana and an elevated blood alcohol level. # DVT and GI prophylaxis: Protonix twice daily Dispo: Patient's neuromuscular recovery continues. At this point he benefits from ARU, as well SNF evaluation can be considered, but ARU would be the preferred option -awaiting final decision from outside ARU facility to accept patient, as well as again our [facility] ARU facility. Exam/Review of Systems Exam Vitals Vital Signs Date Temp Pulse Resp B/P (MAP) Pulse Ox O2 O2 Flow FiO2 Time Delivery Rate 10/23/18 97.7 70 20 104/79 98 07:31 (87) 10/20/18 Room Air 14:33 Intake and Output 10/22/18 10/22/18 10/23/18 1515:00 23:00 07:00 IntakeIntake Total 1120 ml 600 ml OutputOutput Total 800 ml 1600 ml BalanceBalance 320 ml -1000 ml Medications Medication Current Medications Metoprolol Tartrate (Lopressor) 25 mg BID PO Last administered on 10/23/18at 09:11; Admin Dose 25 MG; Start 08/23/18 at 21:00 Ondansetron HCl (Zofran Inj) 4 mg Q6H PRN IV NAUSEA AND/OR VOMITING Last administered on 08/25/18at 21:47; Admin Dose 4 MG; Start 08/25/18 at 21:30 Heparin Sodium (Porcine) (Heparin (5000 Units/1ml)) 5,000 unit Q8 SC Last a dministered on 09/01/18at 14:27; Admin Dose 5,000 UNIT; Start 08/29/18 at 14:00; Status Hold Aspirin (Aspirin) 81 mg DAILY PO Last administered on 09/03/18 08:37; Admin Dose 81 MG; Start 08/30/18 at 09:00; Status Hold Tramadol HCl (Ultram) 50 mg Q6H PRN PO MODERATE PAIN LEVEL 4-6 Last administered on 10/19/18 19:52; Admin Dose 50 MG; Start 09/23/18 at 15:00 Miscellaneous Information (*Order Clarification Bulletin) MEDICATION RENEWAL: LOPRESSO... Q8H XX ; Start 10/22/18 at 13:00 CINTIA ESPINOSA Oct 23, 2018 10:46
[2018-10-23 15:22] VITALS: BP 108/69; PULSE 87; RESP 20
[2018-10-23 19:37] VITALS: BP 103/68; PULSE 91; RESP 16
[2018-10-23] MEDS: traMADol 50 MG TAB PO PRN (19:45)
[2018-10-23 20:35] VITALS: BP 107/68; PULSE 80
[2018-10-24 01:28] VITALS: BP 109/77; PULSE 73; RESP 16
[2018-10-24 07:36] VITALS: BP 98/65; PULSE 77; RESP 20
--- NOTE | 2018-10-24 07:59 | CONS ---
Assessment/Plan Assessment/Plan Assessment/Plan (Daily) S/P Respiratory failure status post extubation Low normal left ventricular ejection fraction 50% Sepsis S/P Acute kidney injury, was on hemodialysis Elevated troponin, type II myocardial infarction Encephalopathy GI bleed Liver dysfunction Illicit drug use -Off aspirin secondary to GI bleed. -Continue beta-kishan as tolerated. -No new cardiac orders at the current time Consultation Date/Type/Reason Admit Date/Time Aug 20, 2018 at 21:39 Initial Consult Date 09/01/18 Type of Consult Cardiology Requesting Provider: YUMIKO JC MD Date/Time of Note DATE: 10/24/18 TIME: 07:58 24 HR Interval Summary Free Text/Dictation the paoent stable Exam/Review of Systems Vital Signs Vitals Vital Signs Date Temp Pulse Resp B/P (MAP) Pulse Ox O2 O2 Flow FiO2 Time Delivery Rate 10/24/18 97.5 77 20 98/65 (76) 99 07:36 10/20/18 Room Air 14:33 Intake and Output 10/23/18 10/23/18 10/24/18 1414:59 22:59 06:59 IntakeIntake Total 1800 ml 760 ml 480 ml OutputOutput Total 300 ml 1600 ml 500 ml BalanceBalance 1500 ml -840 ml -20 ml Medications Medications Current Medications Metoprolol Tartrate (Lopressor) 25 mg BID PO Last administered on 10/23/18at 09:11; Admin Dose 25 MG; Start 08/23/18 at 21:00 Ondansetron HCl (Zofran Inj) 4 mg Q6H PRN IV NAUSEA AND/OR VOMITING Last administered on 08/25/18at 21:47; Admin Dose 4 MG; Start 08/25/18 at 21:30 Heparin Sodium (Porcine) (Heparin (5000 Units/1ml)) 5,000 unit Q8 SC Last administered on 09/01/18at 14:27; Admin Dose 5,000 UNIT; Start 08/29/18 at 14:00; Status Hold Aspirin (Aspirin) 81 mg DAILY PO Last administered on 09/03/18at 08:37; Admin Dose 81 MG; Start 08/30/18 at 09:00; Status Hold Tramadol HCl (Ultram) 50 mg Q6H PRN PO MODERATE PAIN LEVEL 4-6 Last administered on 10/23/18at 19:45; Admin Dose 50 MG; Start 09/23/18 at 15:00 SUNIL LY MD Oct 24, 2018 07:59
[2018-10-24] MEDS: METOPROLOL 25 MG TAB PO SCH ×2 (09:00→20:25)
[2018-10-24 13:24] VITALS: BP 107/72; PULSE 82; RESP 20
--- NOTE | 2018-10-24 14:32 | PN ---
Date/Time of Note Date/Time of Note DATE: 10/24/18 TIME: 14:30 Assessment/Plan VTE Prophylaxis Risk score (from Nsg)>0 risk: 1 SCD applied (from Nsg): Yes Pharmacological prophylaxis: NA/contraindicated Pharm contraindication: low risk/ambulating Lines/Catheters IV Catheter Type (from Nrsg): Peripheral IV Urinary Cath still in place: No Assessment/Plan Hospital Course 33 yo man brought in found down with subsequent JULIAN secondary to rhabdomyolysis; positive for alcohol, methamphetamine, cannabis, opioids as well. #Encephalopathy and Polyneuropathy- Despite extubation on 08/24, he remains lethargic and weak.- Head CT 08/20 negative- Repeat CT on 08/31 shows some edema of the basal ganglia, confirmed on MRI, this likely represents residual toxic metabolic effect - TSH, ammonia, AM cortisol are normal. CK has normalized-also there is associated with proximal muscle weakness but intact sensation-MRI C spine was most notable for signal changes within the paraspinal musculature of C3-C4 through C5-C6... which is likely a sequelae of rhabdomyolysis. - Continue physical therapy and occupational therapy # Renal failure- resolved now - Oliguric renal failure with hyperkalemia (after potassium replacement), also presented with severe metabolic acidosis - Likely due to a combination of rhabdo and drug use. #Hematochezia- resolved- Nurse reported maroon colored stool on 09/01- EGD 09/02 only with mild gastritis and distal esophagitis- MD witnessed maroon colored, grainy stool on 09/03. Rectal exam negative for external hemorrhoids or palpable internal hemorrhoids. Colonoscopy showed solitary rectal ulcer syndrome, bleeding likely from the rectal ulcer. -Continue Protonix daily for regular ulcer PPx. #Bacteremia- Had fever on 08/27 - Blood culture (x1 unfortunately) from that day is growing coag negative staph, a common contaminant. Repeat blood culture negative.- D/Matias right IJ. But his femoral dialysis catheter may also be a source of infection -wound culture from the groin area where the dialysis catheter was grew positive Pseudomonas, Enterobacter, and VRE. Status post treatment with antibiotics for this infection. Tip of Saurabh catheter culture was positive for Rosa on September 09, 2018. # acute respiratory failure- resolved, now on room air - extubated 08/24, was likely secondary to polysubstance overdose resulting in multiorgan dysfunction; patient had subsequent severe metabolic acidosis with inadequate respiratory compensation-now oxygen levels stable - s/p antibiotic treatment for CAP earlier this admission # Elevated troponin-now appears stable- Likely demand ischemia from drug use. Will not treat per NSTEMI protocol. # transaminitis: -resolved -May be from shock liver or drug use.- Hep B, Hep C negative. LFTs have trended down. -Monitor for now # Rhabdomyolysis -occurred earlier this admission, patient required ICU care at that time, now resolved # Coagulopathy- Resolved. # polysubstance abuse - Again patient was found to be positive for opioids, methamphetamine, marijuana and an elevated blood alcohol level. # DVT and GI prophylaxis: Protonix twice daily Dispo: Patient now ambulating with minimal assist. Anticipate discharge to ARU. Subjective 24 Hr Interval Summary Free Text/Dictation Patient doing very well. Walked a few steps using FWW, minimal assist. Exam/Review of Systems Exam Vitals Vital Signs Date Temp Pulse Resp B/P (MAP) Pulse Ox O2 O2 Flow FiO2 Time Delivery Rate 10/24/18 97.5 82 20 107/72 97 13:24 (84) 10/20/18 Room Air 14:33 Intake and Output 10/23/18 10/23/18 10/24/18 1515:00 23:00 07:00 IntakeIntake Total 1800 ml 760 ml 480 ml OutputOutput Total 300 ml 1600 ml 500 ml BalanceBalance 1500 ml -840 ml -20 ml Exam Gen: Sitting up in bed, awake, responsive. HEENT: PERRL, moist mucous membranes, Card: Regular rate and rhythm no murmurs Pulm: CTA bilaterally, no crackles. Abd: Soft, nondistended Ext: No cyanosis/clubbing/edema Neuro: 5/5 strength throughout except R foot, 0/5 dorsiflexion and plantarflexion. Medications Medication Current Medications Metoprolol Tartrate (Lopressor) 25 mg BID PO Last administered on 10/23/18at 09:11; Admin Dose 25 MG; Start 08/23/18 at 21:00 Ondansetron HCl (Zofran Inj) 4 mg Q6H PRN IV NAUSEA AND/OR VOMITING Last administered on 08/25/18at 21:47; Admin Dose 4 MG; Start 08/25/18 at 21:30 Heparin Sodium (Porcine) (Heparin (5000 Units/1ml)) 5,000 unit Q8 SC Last administered on 09/01/18at 14:27; Admin Dose 5,000 UNIT; Start 08/29/18 at 14:00; Status Hold Aspirin (Aspirin) 81 mg DAILY PO Last administered on 09/03/18at 08:37; Admin Dose 81 MG; Start 08/30/18 at 09:00; Status Hold Tramadol HCl (Ultram) 50 mg Q6H PRN PO MODERATE PAIN LEVEL 4-6 Last administered on 10/23/18at 19:45; Admin Dose 50 MG; Start 09/23/18 at 15:00 YUMIKO JC MD Oct 24, 2018 14:32
[2018-10-24] MEDS: traMADol 50 MG TAB PO PRN ×2 (15:21→20:24)
[2018-10-24 19:22] VITALS: BP 109/73; PULSE 89; RESP 18
[2018-10-24 20:20] VITALS: BP 105/71; PULSE 84
[2018-10-25 01:14] VITALS: BP 106/69; PULSE 77; RESP 18
[2018-10-25 07:33] VITALS: BP 103/71; PULSE 73; RESP 20
--- NOTE | 2018-10-25 07:58 | CONS ---
Assessment/Plan Assessment/Plan Assessment/Plan (Daily) S/P Respiratory failure status post extubation Low normal left ventricular ejection fraction 50% Sepsis S/P Acute kidney injury, was on hemodialysis Elevated troponin, type II myocardial infarction Encephalopathy GI bleed Liver dysfunction Illicit drug use -Off aspirin secondary to GI bleed. -Continue beta-kishan as tolerated. -No new cardiac orders at the current time Consultation Date/Type/Reason Admit Date/Time Aug 20, 2018 at 21:39 Initial Consult Date 09/01/18 Type of Consult Cardiology Requesting Provider: YUMIKO JC MD Date/Time of Note DATE: 10/25/18 TIME: 07:58 24 HR Interval Summary Free Text/Dictation the ptiet with no change Exam/Review of Systems Vital Signs Vitals Vital Signs Date Temp Pulse Resp B/P (MAP) Pulse Ox O2 O2 Flow FiO2 Time Delivery Rate 10/25/18 98.1 73 20 103/71 98 07:33 (82) Intake and Output 10/24/18 10/24/18 10/25/18 1515:00 23:00 07:00 IntakeIntake Total 1120 ml 600 ml 300 ml OutputOutput Total 1825 ml 500 ml BalanceBalance 1120 ml -1225 ml -200 ml Labs Result Diagram: 10/25/1852310/25/18 0524 Results 24hrs Laboratory Tests Test 10/25/18 05:24 White Blood Count 6.2 Red Blood Count 4.47 L Hemoglobin 13.5 L Hematocrit 39.3 L Mean Corpuscular Volume 87.9 Mean Corpuscular Hemoglobin 30.2 Mean Corpuscular Hemoglobin Concent 34.4 Red Cell Distribution Width 12.8 Platelet Count 291 Mean Platelet Volume 10.2 Immature Granulocytes % 0.200 Neutrophils % 39.3 Lymphocytes % 44.1 Monocytes % 6.0 Eosinophils % 9.4 H Basophils % 1.0 Nucleated Red Blood Cells % 0.0 Immature Granulocytes # 0.010 Neutrophils # 2.4 Lymphocytes # 2.7 Monocytes # 0.4 Eosinophils # 0.6 H Basophils # 0.1 Nucleated Red Blood Cells # 0.0 Sodium Level 141 Potassium Level 3.3 L Chloride Level 96 L Carbon Dioxide Level 30 Anion Gap 15 H Blood Urea Nitrogen 17 Creatinine 0.60 L Est Glomerular Filtrat Rate mL/min > 60 Glucose Level 93 Calcium Level 10.1 Phosphorus Level 4.9 Magnesium Level 1.7 Medications Medications Current Medications Metoprolol Tartrate (Lopressor) 25 mg BID PO Last administered on 10/23/18 09:11; Admin Dose 25 MG; Start 08/23/18 at 21:00 Ondansetron HCl (Zofran Inj) 4 mg Q6H PRN IV NAUSEA AND/OR VOMITING Last administered on 08/25/18at 21:47; Admin Dose 4 MG; Start 08/25/18 at 21:30 Heparin Sodium (Porcine) (Heparin (5000 Units/1ml)) 5,000 unit Q8 SC Last administered on 09/01/18at 14:27; Admin Dose 5,000 UNIT; Start 08/29/18 at 14:00; Status Hold Aspirin (Aspirin) 81 mg DAILY PO Last administered on 09/03/18at 08:37; Admin Dose 81 MG; Start 08/30/18 at 09:00; Status Hold Tramadol HCl (Ultram) 50 mg Q6H PRN PO MODERATE PAIN LEVEL 4-6 Last administered on 10/24/18at 20:24; Admin Dose 50 MG; Start 09/23/18 at 15:00 SUNIL LY MD Oct 25, 2018 07:58
[2018-10-25] MEDS: METOPROLOL 25 MG TAB PO SCH ×2 (08:31→20:45)
[2018-10-25] MEDS: traMADol 50 MG TAB PO PRN ×2 (08:44→20:46)
[2018-10-25 13:23] VITALS: BP 128/63; PULSE 71; RESP 20
--- NOTE | 2018-10-25 13:23 | PN ---
Date/Time of Note Date/Time of Note DATE: 10/25/18 TIME: 13:22 Assessment/Plan VTE Prophylaxis Risk score (from Ns)>0 risk: 1 SCD applied (from Ns): Yes Pharmacological prophylaxis: NA/contraindicated Pharm contraindication: low risk/ambulating Lines/Catheters IV Catheter Type (from Nrsg): Saline Lock Urinary Cath still in place: No Assessment/Plan Hospital Course 33 yo man brought in found down with subsequent JULIAN secondary to rhabdomyolysis; positive for alcohol, methamphetamine, cannabis, opioids as well. #Encephalopathy and Polyneuropathy- Despite extubation on 08/24, he remains lethargic and weak.- Head CT 08/20 negative- Repeat CT on 08/31 shows some edema of the basal ganglia, confirmed on MRI, this likely represents residual toxic metabolic effect - TSH, ammonia, AM cortisol are normal. CK has normalized-also there is associated with proximal muscle weakness but intact sensation-MRI C spine was most notable for signal changes within the paraspinal musculature of C3-C4 through C5-C6... which is likely a sequelae of rhabdomyolysis. - Continue physical therapy and occupational therapy # Renal failure- resolved now - Oliguric renal failure with hyperkalemia (after potassium replacement), also presented with severe metabolic acidosis - Likely due to a combination of rhabdo and drug use. #Hematochezia- resolved- Nurse reported maroon colored stool on 09/01- EGD 09/02 only with mild gastritis and distal esophagitis- MD witnessed maroon colored, grainy stool on 09/03. Rectal exam negative for external hemorrhoids or palpable internal hemorrhoids. Colonoscopy showed solitary rectal ulcer syndrome, bleeding likely from the rectal ulcer. -Continue Protonix daily for regular ulcer PPx. #Bacteremia- Had fever on 08/27 - Blood culture (x1 unfortunately) from that day is growing coag negative staph, a common contaminant. Repeat blood culture negative.- D/Matias right IJ. But his femoral dialysis catheter may also be a source of infection -wound culture from the groin area where the dialysis catheter was grew positive Pseudomonas, Enterobacter, and VRE. Status post treatment with antibiotics for this infection. Tip of Saurabh catheter culture was positive for Rosa on September 09, 2018. # acute respiratory failure- resolved, now on room air - extubated 08/24, was likely secondary to polysubstance overdose resulting in multiorgan dysfunction; patient had subsequent severe metabolic acidosis with inadequate respiratory compensation-now oxygen levels stable - s/p antibiotic treatment for CAP earlier this admission # Elevated troponin-now appears stable- Likely demand ischemia from drug use. Will not treat per NSTEMI protocol. # transaminitis: -resolved -May be from shock liver or drug use.- Hep B, Hep C negative. LFTs have trended down. -Monitor for now # Rhabdomyolysis -occurred earlier this admission, patient required ICU care at that time, now resolved # Coagulopathy- Resolved. # polysubstance abuse - Again patient was found to be positive for opioids, methamphetamine, marijuana and an elevated blood alcohol level. # DVT and GI prophylaxis: Protonix twice daily Dispo: Patient now ambulating with minimal assist. Anticipate discharge to ARU. Result Diagram: 10/25/1852310/25/18523 Results 24hrs Laboratory Tests Test 10/25/18 05:24 White Blood Count 6.2 Red Blood Count 4.47 L Hemoglobin 13.5 L Hematocrit 39.3 L Mean Corpuscular Volume 87.9 Mean Corpuscular Hemoglobin 30.2 Mean Corpuscular Hemoglobin Concent 34.4 Red Cell Distribution Width 12.8 Platelet Count 291 Mean Platelet Volume 10.2 Immature Granulocytes % 0.200 Neutrophils % 39.3 Lymphocytes % 44.1 Monocytes % 6.0 Eosinophils % 9.4 H Basophils % 1.0 Nucleated Red Blood Cells % 0.0 Immature Granulocytes # 0.010 Neutrophils # 2.4 Lymphocytes # 2.7 Monocytes # 0.4 Eosinophils # 0.6 H Basophils # 0.1 Nucleated Red Blood Cells # 0.0 Sodium Level 141 Potassium Level 3.3 L Chloride Level 96 L Carbon Dioxide Level 30 Anion Gap 15 H Blood Urea Nitrogen 17 Creatinine 0.60 L Est Glomerular Filtrat Rate mL/min > 60 Glucose Level 93 Calcium Level 10.1 Phosphorus Level 4.9 Magnesium Level 1.7 Subjective 24 Hr Interval Summary Free Text/Dictation No acute overnight events. Patient sitting comfortably watching TV Exam/Review of Systems Exam Vitals Vital Signs Date Temp Pulse Resp B/P (MAP) Pulse Ox O2 O2 Flow FiO2 Time Delivery Rate 10/25/18 98.1 73 20 103/71 98 07:33 (82) Intake and Output 10/24/18 10/24/18 10/25/18 1515:00 23:00 07:00 IntakeIntake Total 1120 ml 600 ml 300 ml OutputOutput Total 1825 ml 500 ml BalanceBalance 1120 ml -1225 ml -200 ml Exam Gen: Sitting up in bed, awake, responsive. HEENT: PERRL, moist mucous membranes, Card: Regular rate and rhythm no murmurs Pulm: CTA bilaterally, no crackles. Abd: Soft, nondistended Ext: No cyanosis/clubbing/edema Neuro: 5/5 strength throughout except R foot, 0/5 dorsiflexion and plantarflexion. Medications Medication Current Medications Metoprolol Tartrate (Lopressor) 25 mg BID PO Last administered on 10/23/18 09:11; Admin Dose 25 MG; Start 08/23/18 at 21:00 Ondansetron HCl (Zofran Inj) 4 mg Q6H PRN IV NAUSEA AND/OR VOMITING Last administered on 08/25/18at 21:47; Admin Dose 4 MG; Start 08/25/18 at 21:30 Heparin Sodium (Porcine) (Heparin (5000 Units/1ml)) 5,000 unit Q8 SC Last administered on 09/01/18at 14:27; Admin Dose 5,000 UNIT; Start 08/29/18 at 14:00; Status Hold Aspirin (Aspirin) 81 mg DAILY PO Last administered on 09/03/18at 08:37; Admin Dose 81 MG; Start 08/30/18 at 09:00; Status Hold Tramadol HCl (Ultram) 50 mg Q6H PRN PO MODERATE PAIN LEVEL 4-6 Last administered on 10/25/18 08:44; Admin Dose 50 MG; Start 09/23/18 at 15:00 Potassium Chloride (Potassium Chloride Pwd/Soln) 40 meq ONCE ONCE PO ; Start 10/25/18 at 13:30; Stop 10/25/18 at 13:31; Status UNV YUMIKO JC MD Oct 25, 2018 13:23
[2018-10-25] MEDS ORDERED: POTASSIUM CHLORIDE 20 MEQ POWDER FOR ORAL SOLN PO ONE (13:30)
[2018-10-25 20:10] VITALS: BP 103/69; PULSE 85; RESP 18
[2018-10-26 01:45] VITALS: BP 97/5; RESP 18
[2018-10-26 07:32] VITALS: BP 101/66; PULSE 69; RESP 16
[2018-10-26] MEDS: METOPROLOL 25 MG TAB PO SCH ×2 (08:35→20:29)
[2018-10-26 13:19] VITALS: BP 109/74; PULSE 95; RESP 16
--- NOTE | 2018-10-26 14:42 | PN ---
Date/Time of Note Date/Time of Note DATE: 10/26/18 TIME: 14:41 Assessment/Plan VTE Prophylaxis Risk score (from Ns)>0 risk: 2 SCD applied (from Ns): No SCD contraindicated: low risk/ambulating Pharmacological prophylaxis: NA/contraindicated Pharm contraindication: low risk/ambulating Lines/Catheters IV [facility] (from [facility] Saline Lock Urinary Cath still in place: No Assessment/Plan Hospital Course 33 yo man brought in found down with subsequent JULIAN secondary to rhabdomyolysis; positive for alcohol, methamphetamine, cannabis, opioids as well. #Encephalopathy and Polyneuropathy- Despite extubation on 08/24, he remains lethargic and weak.- Head CT 08/20 negative- Repeat CT on 08/31 shows some edema of the basal ganglia, confirmed on MRI, this likely represents residual toxic metabolic effect - TSH, ammonia, AM cortisol are normal. CK has normalized-also there is associated with proximal muscle weakness but intact sensation-MRI C spine was most notable for signal changes within the paraspinal musculature of C3-C4 through C5-C6... which is likely a sequelae of rhabdomyolysis. - Continue physical therapy and occupational therapy # Renal failure- resolved now - Oliguric renal failure with hyperkalemia (after potassium replacement), also presented with severe metabolic acidosis - Likely due to a combination of rhabdo and drug use. #Hematochezia- resolved- Nurse reported maroon colored stool on 09/01- EGD 09/02 only with mild gastritis and distal esophagitis- MD witnessed maroon colored, grainy stool on 09/03. Rectal exam negative for external hemorrhoids or palpable internal hemorrhoids. Colonoscopy showed solitary rectal ulcer syndrome, bleeding likely from the rectal ulcer. -Continue Protonix daily for regular ulcer PPx. #Bacteremia- Had fever on 08/27 - Blood culture (x1 unfortunately) from that day is growing coag negative staph, a common contaminant. Repeat blood culture negative.- D/Matias right IJ. But his femoral dialysis catheter may also be a source of infection -wound culture from the groin area where the dialysis catheter was grew positive Pseudomonas, Enterobacter, and VRE. Status post treatment with antibiotics for this infection. Tip of Saurabh catheter culture was positive for Rosa on September 09, 2018. # acute respiratory failure- resolved, now on room air - extubated 08/24, was likely secondary to polysubstance overdose resulting in multiorgan dysfunction; patient had subsequent severe metabolic acidosis with inadequate respiratory compensation-now oxygen levels stable - s/p antibiotic treatment for CAP earlier this admission # Elevated troponin-now appears stable- Likely demand ischemia from drug use. Will not treat per NSTEMI protocol. # transaminitis: -resolved -May be from shock liver or drug use.- Hep B, Hep C negative. LFTs have trended down. -Monitor for now # Rhabdomyolysis -occurred earlier this admission, patient required ICU care at that time, now resolved # Coagulopathy- Resolved. # polysubstance abuse - Again patient was found to be positive for opioids, methamphetamine, marijuana and an elevated blood alcohol level. # DVT and GI prophylaxis: Protonix twice daily Dispo: Patient now ambulating with minimal assist. Medically clear for discharge to [facility] or other rehab. Result Diagram: 10/25/1852310/25/18523 Subjective 24 Hr Interval Summary Free Text/Dictation Patient feeling well today, no complaints. Exam/Review of Systems Exam Vitals Vital Signs Date Temp Pulse Resp B/P (MAP) Pulse Ox O2 O2 Flow FiO2 Time Delivery Rate 10/26/18 98.2 95 16 109/74 98 13:19 (86) Intake and Output 10/25/18 10/25/18 10/26/18 1414:59 22:59 06:59 IntakeIntake Total 1680 ml 600 ml 300 ml OutputOutput Total 1800 ml BalanceBalance 1680 ml -1200 ml 300 ml Exam Gen: Sitting up in bed, awake, responsive. HEENT: PERRL, moist mucous membranes, Card: Regular rate and rhythm no murmurs Pulm: CTA bilaterally, no crackles. Abd: Soft, nondistended Ext: No cyanosis/clubbing/edema Neuro: 5/5 strength throughout except R foot, 0/5 dorsiflexion and plantarflexion. Medications Medication Current Medications Metoprolol Tartrate (Lopressor) 25 mg BID PO Last administered on 10/23/18at 09:11; Admin Dose 25 MG; Start 08/23/18 at 21:00 Ondansetron HCl (Zofran Inj) 4 mg Q6H PRN IV NAUSEA AND/OR VOMITING Last administered on 08/25/18at 21:47; Admin Dose 4 MG; Start 08/25/18 at 21:30 Heparin Sodium (Porcine) (Heparin (5000 Units/1ml)) 5,000 unit Q8 SC Last administered on 09/01/18at 14:27; Admin Dose 5,000 UNIT; Start 08/29/18 at 14:00; Status Hold Aspirin (Aspirin) 81 mg DAILY PO Last administered on 09/03/18at 08:37; Admin Dose 81 MG; Start 08/30/18 at 09:00; Status Hold Tramadol HCl (Ultram) 50 mg Q6H PRN PO MODERATE PAIN LEVEL 4-6 Last administered on 10/25/18at 20:46; Admin Dose 50 MG; Start 09/23/18 at 15:00 YUMIKO JC MD Oct 26, 2018 14:41
[2018-10-26 20:04] VITALS: BP 112/73; PULSE 94; RESP 16
[2018-10-27 02:11] VITALS: BP 105/72; PULSE 76; RESP 16
[2018-10-27 07:47] VITALS: BP 110/77; PULSE 76; RESP 18
[2018-10-27] MEDS: METOPROLOL 25 MG TAB PO SCH ×2 (08:13→20:06)
[2018-10-27 14:04] VITALS: BP 104/75; PULSE 78; RESP 16
--- NOTE | 2018-10-27 14:10 | PN ---
Date/Time of Note Date/Time of Note DATE: 10/27/18 TIME: 14:08 Assessment/Plan VTE Prophylaxis Risk score (from Ns)>0 risk: 1 SCD applied (from Ns): Yes Pharmacological prophylaxis: NA/contraindicated Pharm contraindication: low risk/ambulating Lines/Catheters IV Catheter Type (from Nrs): Saline Lock Urinary Cath still in place: No Assessment/Plan Hospital Course 33 yo man brought in found down with subsequent JULIAN secondary to rhabdomyolysis; positive for alcohol, methamphetamine, cannabis, opioids as well. #Encephalopathy and Polyneuropathy- Despite extubation on 08/24, he remains lethargic and weak.- Head CT 08/20 negative- Repeat CT on 08/31 shows some edema of the basal ganglia, confirmed on MRI, this likely represents residual toxic metabolic effect - TSH, ammonia, AM cortisol are normal. CK has normalized-also there is associated with proximal muscle weakness but intact sensation-MRI C spine was most notable for signal changes within the paraspinal musculature of C3-C4 through C5-C6... which is likely a sequelae of rhabdomyolysis. - Continue physical therapy and occupational therapy # Renal failure- resolved now - Oliguric renal failure with hyperkalemia (after potassium replacement), also presented with severe metabolic acidosis - Likely due to a combination of rhabdo and drug use. #Hematochezia- resolved- Nurse reported maroon colored stool on 09/01- EGD 09/02 only with mild gastritis and distal esophagitis- MD witnessed maroon colored, grainy stool on 09/03. Rectal exam negative for external hemorrhoids or palpable internal hemorrhoids. Colonoscopy showed solitary rectal ulcer syndrome, bleeding likely from the rectal ulcer. -Continue Protonix daily for regular ulcer PPx. #Bacteremia- Had fever on 08/27 - Blood culture (x1 unfortunately) from that day is growing coag negative staph, a common contaminant. Repeat blood culture negative.- D/Matias right IJ. But his femoral dialysis catheter may also be a source of infection -wound culture from the groin area where the dialysis catheter was grew positive Pseudomonas, Enterobacter, and VRE. Status post treatment with antibiotics for this infection. Tip of Saurabh catheter culture was positive for Rosa on September 09, 2018. # acute respiratory failure- resolved, now on room air - extubated 08/24, was likely secondary to polysubstance overdose resulting in multiorgan dysfunction; patient had subsequent severe metabolic acidosis with inadequate respiratory compensation-now oxygen levels stable - s/p antibiotic treatment for CAP earlier this admission # Elevated troponin-now appears stable- Likely demand ischemia from drug use. Will not treat per NSTEMI protocol. # transaminitis: -resolved -May be from shock liver or drug use.- Hep B, Hep C negative. LFTs have trended down. -Monitor for now # Rhabdomyolysis -occurred earlier this admission, patient required ICU care at that time, now resolved # Coagulopathy- Resolved. # polysubstance abuse - Again patient was found to be positive for opioids, methamphetamine, marijuana and an elevated blood alcohol level. # DVT and GI prophylaxis: Protonix twice daily Dispo: Patient now ambulating with minimal assist. Medically clear for discharge to [facility] when bed is available Result Diagram: 10/25/1852310/25/18523 Subjective 24 Hr Interval Summary Free Text/Dictation No acute overnight events. Exam/Review of Systems Exam Vitals Vital Signs Date Temp Pulse Resp B/P (MAP) Pulse Ox O2 O2 Flow FiO2 Time Delivery Rate 10/27/18 98.2 78 16 104/75 98 14:04 (85) Intake and Output 10/26/18 10/26/18 10/27/18 1515:00 23:00 07:00 IntakeIntake Total 1140 ml 640 ml 220 ml OutputOutput Total 800 ml 750 ml 700 ml BalanceBalance 340 ml -110 ml -480 ml Exam Gen: Sitting up in bed, awake, responsive. HEENT: PERRL, moist mucous membranes, Card: Regular rate and rhythm no murmurs Pulm: CTA bilaterally, no crackles. Abd: Soft, nondistended Ext: No cyanosis/clubbing/edema Neuro: 5/5 strength throughout except R foot, 0/5 dorsiflexion and vikas ntarflexion. Medications Medication Current Medications Metoprolol Tartrate (Lopressor) 25 mg BID PO Last administered on 10/27/18at 08:13; Admin Dose 25 MG; Start 08/23/18 at 21:00 Heparin Sodium (Porcine) (Heparin (5000 Units/1ml)) 5,000 unit Q8 SC Last administered on 09/01/18at 14:27; Admin Dose 5,000 UNIT; Start 08/29/18 at 14:00; Status Hold Aspirin (Aspirin) 81 mg DAILY PO Last administered on 09/03/18at 08:37; Admin Dose 81 MG; Start 08/30/18 at 09:00; Status Hold Tramadol HCl (Ultram) 50 mg Q6H PRN PO MODERATE PAIN LEVEL 4-6 Last administered on 10/25/18at 20:46; Admin Dose 50 MG; Start 09/23/18 at 15:00 YUMIKO JC MD Oct 27, 2018 14:10
[2018-10-27] MEDS: traMADol 50 MG TAB PO PRN (15:09)
--- NOTE | 2018-10-27 15:29 | CONS ---
Assessment/Plan Assessment/Plan Hospital Course (Demo Recall) S/P Respiratory failure status post extubation Low normal left ventricular ejection fraction 50% Sepsis S/P Acute kidney injury, was on hemodialysis Elevated troponin, type II myocardial infarction Encephalopathy GI bleed Liver dysfunction Illicit drug use -Off aspirin secondary to GI bleed. -Continue beta-kishan as tolerated. -No new cardiac orders at the current time Consultation Date/Type/Reason Admit Date/Time Aug 20, 2018 at 21:39 Initial Consult Date 08/21/18 Type of Consult Cardiology Requesting Provider: YUMIKO JC MD Date/Time of Note DATE: 10/27/18 TIME: 15:28 24 HR Interval Summary Free Text/Dictation no cp, sob Exam/Review of Systems Vital Signs Vitals Vital Signs Date Temp Pulse Resp B/P (MAP) Pulse Ox O2 O2 Flow FiO2 Time Delivery Rate 10/27/18 98.2 78 16 104/75 98 14:04 (85) Intake and Output 10/26/18 10/26/18 10/27/18 1515:00 23:00 07:00 IntakeIntake Total 1140 ml 640 ml 220 ml OutputOutput Total 800 ml 750 ml 700 ml BalanceBalance 340 ml -110 ml -480 ml Exam Constitutional: alert (nad) Head: normocephalic Respiratory: clear to auscultation, normal air movement Cardiovascular: regular rate and rhythm (s1s2) Gastrointestinal: soft, non-tender, bowel sounds Extremities: other (no edema) Labs Result Diagram: 10/25/1852310/25/18523 Medications Medications Current Medications Metoprolol Tartrate (Lopressor) 25 mg BID PO Last administered on 10/27/18at 08:13; Admin Dose 25 MG; Start 08/23/18 at 21:00 Heparin Sodium (Porcine) (Heparin (5000 Units/1ml)) 5,000 unit Q8 SC Last admi nistered on 09/01/18at 14:27; Admin Dose 5,000 UNIT; Start 08/29/18 at 14:00; Status Hold Aspirin (Aspirin) 81 mg DAILY PO Last administered on 09/03/18at 08:37; Admin Dose 81 MG; Start 08/30/18 at 09:00; Status Hold Tramadol HCl (Ultram) 50 mg Q6H PRN PO MODERATE PAIN LEVEL 4-6 Last administe red on 10/27/18at 15:09; Admin Dose 50 MG; Start 09/23/18 at 15:00 Kana Phoenix DO Oct 27, 2018 15:29
[2018-10-27 19:37] VITALS: BP 115/69; PULSE 98; RESP 16
[2018-10-28 01:58] VITALS: BP 102/67; PULSE 80; RESP 16
[2018-10-28 07:34] VITALS: BP 111/77; PULSE 77; RESP 15
[2018-10-28] MEDS: METOPROLOL 25 MG TAB PO SCH (08:25)
[2018-10-28] MEDS ORDERED: METO-448 PO (11:17)
[2018-10-28] MEDS ORDERED: ATOR40TA68 PO (11:19)
[2018-10-28] MEDS ORDERED: ASPI-831 PO (11:19)
[2018-10-28] MEDS ORDERED: ASPIRIN 81 MG TAB PO SCH (11:30)
--- NOTE | 2018-10-28 11:31 | CONS ---
Assessment/Plan Assessment/Plan Hospital Course (Demo Recall) S/P Respiratory failure status post extubation Low normal left ventricular ejection fraction 50% Sepsis S/P Acute kidney injury, was on hemodialysis Elevated troponin, type II myocardial infarction Encephalopathy GI bleed Liver dysfunction Illicit drug use -Off aspirin secondary to GI bleed. -Continue beta-kishan as tolerated. -No new cardiac orders at the current time Consultation Date/Type/Reason Admit Date/Time Aug 20, 2018 at 21:39 Initial Consult Date 08/21/18 Type of Consult Cardiology Requesting Provider: YUMIKO JC MD Date/Time of Note DATE: 10/28/18 TIME: 11:30 24 HR Interval Summary Free Text/Dictation no sob, cp Exam/Review of Systems Vital Signs Vitals Vital Signs Date Temp Pulse Resp B/P (MAP) Pulse Ox O2 O2 Flow FiO2 Time Delivery Rate 10/28/18 98.3 77 15 111/77 99 07:34 (88) Intake and Output 10/27/18 10/27/18 10/28/18 1414:59 22:59 06:59 IntakeIntake Total 480 ml 980 ml 240 ml OutputOutput Total 1400 ml BalanceBalance 480 ml -420 ml 240 ml Exam Exam nad Constitutional: alert, oriented Head: normocephalic Respiratory: clear to auscultation, normal air movement Cardiovascular: regular rate and rhythm, other (s1s2) Gastrointestinal: soft, non-tender, bowel sounds Extremities: other (no edema) Labs Result Diagram: 10/25/1852310/25/18523 Medications Medications Current Medications Metoprolol Tartrate (Lopressor) 25 mg BID PO Last administered on 10/28/18at 08 :25; Admin Dose 25 MG; Start 08/23/18 at 21:00 Heparin Sodium (Porcine) (Heparin (5000 Units/1ml)) 5,000 unit Q8 SC Last administered on 09/01/18at 14:27; Admin Dose 5,000 UNIT; Start 08/29/18 at 14:00; Status Hold Tramadol HCl (Ultram) 50 mg Q6H PRN PO MODERATE PAIN LEVEL 4-6 Last administere d on 10/27/18at 15:09; Admin Dose 50 MG; Start 09/23/18 at 15:00 Aspirin (Aspirin) 81 mg DAILY PO ; Start 10/28/18 at 11:30 Atorvastatin Calcium (Lipitor) 40 mg HS PO ; Start 10/28/18 at 21:00 Kana Phoenix DO Oct 28, 2018 11:31
--- NOTE | 2018-10-28 14:20 | DS ---
Date/Time of Note Date/Time of Note DATE: 10/28/18 TIME: 14:12 Discharge Summary Admission/Discharge Info Admit Date/Time Aug 20, 2018 at 21:39 Discharge Date/Time Oct 28, 2018 at 13:50 Discharge Diagnosis Rhabdomyolysis Acute amphetamine intoxication Acute anuric renal failure Acute respiratory failure Patient Condition: Good Hx of Present Illness Chief complaint: Altered mental status , found unresponsive in a parking lot This is a 33-year-old male who presents via EMS for altered mental status. EMS reports that the patient was found in a local parking lot unresponsive. He was hypoglycemic in the 30s and given dextrose. The patient was found to have pinpoint pupils and did not respond to 2 mg of Narcan. A nasal trumpet was inserted and the patient was brought to the emergency room. He continues to be unresponsive and remains critical. Patient was noted to be grunting and unresponsive in the emergency department and decision was made to emergently intubate the patient. Central line was also placed given his critical condition. Upon my examination at the bedside the patient is nonresponsive off sedation. He did have pinpoint pupils bilaterally. I did not observe any track anderson or any lesions around his body. I did not noticed any signs of head trauma. Allergies: Unable to obtain Medications: Unknown Hospital Course He was admitted to the intensive care unit intubated on the ventilator. Found to be in rhabdomyolysis, started on IV fluids. Urine toxicology positive for opioids, cannabinoids, and amphetamines. He quickly went into anuric renal failure and required emergent hemodialysis. 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 Subsequent troponins dropped and echo did not show wall motion abnormalities. He was also found to have severe coagulation abnormalities with very high PTT and low fibrinogen; but no DIC. Respiratory status did recover and he was extubated and he also surprisingly was completely weaned off dialysis with recovery of renal function. Hospital course complicated by bleeding rectal ulcer, probably from rectal tube. This was managed conservatively. For several weeks he had severe mental slowing and whole body muscle weakness. MRI brain and spine did show mild basal ganglia edema which can be seen after drug use. No other focal lesions. His strength eventually recovered and he now is able to ambulate with assistance. He does have a residual R foot drop. He does still have significant mental slowing but can answer questions and is alert and oriented x3. He has been visited by his father, Kwame, and his uncle. Neither the patient nor any family members have been able to give a history about events leading up to the hospitalization. Plan to discharge to [facility] for acute rehab with plan to discharge back home to his father afterwards. Home Meds Active Scripts Atorvastatin* (Atorvastatin*) 40 Mg Tablet, 40 MG PO QHS, #30 TAB Prov:YUMIKO JC MD 10/28/18 Aspirin (Aspirin) 81 Mg Chew, 81 MG PO DAILY, #60 TAB.CHEW Prov:YUMIKO JC MD 10/28/18 Metoprolol Tartrate* (Lopressor*) 25 Mg Tab, 25 MG PO BID, #60 TAB Prov:YUMIKO JC MD 10/28/18 Primary Care Provider Care Physician No Primary Time spent on discharge: > 30 minutes YUMIKO JC MD Oct 28, 2018 14:20
[2018-10-28] MEDS ORDERED: ATORVASTATIN 40 MG TAB PO SCH (21:00)
== END 2018-10-28 13:50 | DRG 871 ==
LOC: E/R 20:02 → ICU 21:39 → TEL 08-25 20:05 → 2NE 08-29 03:01
PROVIDERS: ADMIT Family Medicine; ATTEND Internal Medicine
PROC: 02HV33Z Insertion of Infusion Device into Superior Vena Cava, Percutaneous Approach (ICD-10-PCS; principal; 2018-08-20)
PROC: 0BH17EZ Insertion of Endotracheal Airway into Trachea, Via Natural or Artificial Opening (ICD-10-PCS; 2018-08-20)
PROC: 5A1945Z Respiratory Ventilation, 24-96 Consecutive Hours (ICD-10-PCS; 2018-08-20)
PROC: 06HY33Z Insertion of Infusion Device into Lower Vein, Percutaneous Approach (ICD-10-PCS; 2018-08-21)
PROC: 5A1D70Z Performance of Urinary Filtration, Intermittent, Less than 6 Hours Per Day (ICD-10-PCS; 2018-08-21)
PROC: 0DB68ZX Excision of Stomach, Via Natural or Artificial Opening Endoscopic, Diagnostic (ICD-10-PCS; 2018-09-02)
PROC: 0DJD8ZZ Inspection of Lower Intestinal Tract, Via Natural or Artificial Opening Endoscopic (ICD-10-PCS; 2018-09-05)
PROC: 30233N1 Transfusion of Nonautologous Red Blood Cells into Peripheral Vein, Percutaneous Approach (ICD-10-PCS; 2018-09-05)
DX: A41.9 Sepsis, unspecified organism (principal); R65.21 Severe sepsis with septic shock; G92 Toxic encephalopathy; K72.00 Acute and subacute hepatic failure without coma; J96.01 Acute respiratory failure with hypoxia; I21.A1 Myocardial infarction type 2; N17.0 Acute kidney failure with tubular necrosis; J18.9 Pneumonia, unspecified organism; M62.82 Rhabdomyolysis; E87.2 Acidosis; K62.6 Ulcer of anus and rectum; D68.9 Coagulation defect, unspecified; K62.5 Hemorrhage of anus and rectum; T82.7XXA Infection and inflammatory reaction due to other cardiac and vascular devices, implants and grafts, initial encounter; T43.621A Poisoning by amphetamines, accidental (unintentional), initial encounter; T40.2X1A Poisoning by other opioids, accidental (unintentional), initial encounter; E86.0 Dehydration; T40.7X1A Poisoning by cannabis (derivatives), accidental (unintentional), initial encounter; T51.91XA Toxic effect of unspecified alcohol, accidental (unintentional), initial encounter; E16.2 Hypoglycemia, unspecified; D64.9 Anemia, unspecified; E87.5 Hyperkalemia; M21.371 Foot drop, right foot; E83.51 Hypocalcemia; K21.0 Gastro-esophageal reflux disease with esophagitis; F19.90 Other psychoactive substance use, unspecified, uncomplicated; K29.00 Acute gastritis without bleeding; G62.9 Polyneuropathy, unspecified; T51.0X1A Toxic effect of ethanol, accidental (unintentional), initial encounter; J81.1 Chronic pulmonary edema; Y83.8 Other surgical procedures as the cause of abnormal reaction of the patient, or of later complication, without mention of misadventure at the time of the procedure; Y92.238 Other place in hospital as the place of occurrence of the external cause; Y92.481 Parking lot as the place of occurrence of the external cause
CPT/HCPCS: 31500; 36430; 36600; 70450; 70551; 71045; 72141; 73630; 76705; 76937; 80048; 80053; 80076; 80202; 80307; 81001; 82140; 82306; 82533; 82550; 82553; 82607; 82728; 82803; 82962; 83540; 83605; 83735; 84100; 84105; 84132; 84443; 84484; 84560; 85025; 85049; 85362; 85378; 85384; 85610; 85670; 85730; 86704; 86709; 86803; 86850; 86900; 86901; 86920; 87040; 87070; 87081; 87086; 87340; 87400; 88305; 88312; 90686; 90935; 92526; 92610; 93005; 93306; 93970; 94002; 94003; 94770; 96365; 96375; 97110; 97116; 97161; 97167; 97530; 97535; C1752; C9113; J0610; J0692; J0885; J1644; J1815; J1940; J2185; J2250; J2310; J2405; J2543; J3010; J3370; J3411; J3475; J3480; J7030; J7040; J7060; J7070; P9016; P9047